=== PATIENT | female | born 1945 | race Caucasian/White ===

== ENCOUNTER 2017-07-17 15:07 | Inpatient (IN) | payer OTHER ==
[~2017-07-17] VITALS: Ht 154.9 cm; Wt 60.5 kg
[~2017-07-17 15:07] MED LIST: ACET-749 PO; ANSHCCR TOP; ASPI81TA82 PO; BISA-16 PR; DEXTSYP41 PO; FLNIN NAE; LEVO100T PO; METH1TAB2 PO; METR1GEL3 TOP; MOML PO; MULT-506 PO; [UNRECOGNIZED DRUG - CODE] TOP
--- NOTE | 2017-07-17 15:50 | EMERGENCY ROOM VISIT NOTE ---
History Report prepared by Tim: Sharri Cuevas Under the Supervision of: Dr. Gerhard Lema M.D. 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 The patient is a resident at [facility]. The history is obtained from [facility] staff member at the bedside. She states that the patient is prone to PNA. She was seen at her PCP's office yesterday for a cough and increased fatigue. She was started on Levaquin. Today the patient's symptoms were worse. She is paler and more fatigued today. Typically she is more verbal. Positive loss of appetite. The [facility] at [facility] referred the patient to the ED for further evaluation. She did have a flu shot this year. Pt takes a baby aspirin, Lamictal, and Keppra. The HPI is limited secondary to the patient's baseline mental status. 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 Review of Systems ROS is limited secondary to the patient's baseline mental status. Past Medical & Surgical Medical Problems: (1) Alvarado catheter in place (2) Gastroesophageal reflux disease (3) History of DVT (deep vein thrombosis) (4) Hypothyroidism (5) Intellectual disability (6) Osteoporosis (7) Pulmonary fibrosis (8) Seizure disorder Surgical Problems: (1) Total replacement of hip Family History Cardiac disorder FATHER Hypertension MOTHER Social History Smoking Status: Never Smoker Alcohol Use: none Drug Use: none Marital Status: single Housing Status: assisted living Occupation Status: disabled Current/Historical Medications Scheduled Aspirin (Aspirin 81), 81 MG PO DAILY Calcium Carbonate-Vitamin D (Oyster Shell/Vitamin D), 1 TABLET PO HS Calcium Polycarbophil (Fibercon), 625 MG PO DAILY Carbamazepine (Carbatrol ER), 300 MG PO BID Denosumab (Prolia), 60 MG INJ Q6MO Docusate Sodium (Docusate Sodium), 100 MG PO BID Fluticasone Propionate (Nasal) (Flonase Allergy Relief), 2 SPRAYS NA DAILY Hydrocortisone 2.5% (Rectal) (Anusol-Hc 2.5%), 1 APPLN TOP BID Lactulose (Chronulac), 15 ML PO BID Lamotrigine (Lamictal), 350 MG PO BID Levetiracetam (Keppra), 750 MG PO BID Levofloxacin (Levaquin), 500 MG PO DAILY Levothyroxine Sodium (Levothyroxine Sodium), 100 MCG PO DAILY Methenamine Hippurate (Methenamine Hippurate), 1 GM PO BID Metronidazole Hcl (Metronidazole), 1 APPLN TOP BID Multivitamin (Multivitamin), 1 TABLET PO DAILY Neomycin/Polymyx/Bacitr (Neosporin), 1 APPLN TOP PRN Nystatin (Topical) (Nystatin), 1 APPLN PO PRN Sennosides-Docusate Sodium (Sennalax-S), 1 TABLET PO BID Skin Protectants, Misc. (Aloe [place] Protective), 1 APPLN TOP BID Scheduled PRN Acetaminophen (Tylenol), 650 MG PO Q4H PRN for Pain or Fever Guaifenesin (Robitussin), 2 TSP PO Q4H PRN for Cough Loperamide Hcl (Imodium A-D), 2-4 MG PO UD PRN for Diarrhea Polyethylene Glycol 3350 (Miralax), 1 DOSE PO UD PRN for Constipation Allergies Coded Allergies: No Known Allergies (Verified , 12/18/12) Physical Exam Vital Signs Date Time Temp Pulse Resp B/P (MAP) Pulse Ox O2 Delivery O2 Flow Rate FiO2 07/17/17 22:44 80 22 142/79 93 Nasal Cannula 2.0 07/17/17 20:33 79 07/17/17 19:59 64 18 173/78 99 Nasal Cannula 2.0 07/17/17 17:47 60 20 154/70 99 Nasal Cannula 2.0 07/17/17 16:16 73 18 147/74 96 Room Air 07/17/17 15:44 95 Nasal Cannula 2.0 07/17/17 15:26 65 07/17/17 15:20 36.9 72 151/68 95 Room Air Physical Exam GENERAL: Awake, alert, well-appearing, NAD HENT: Normocephalic, atraumatic. EYES: Normal conjunctiva. Sclera non-icteric. NECK: Supple. No nuchal rigidity. FROM. RESPIRATORY: No rhonchi or wheezing, bibasilar crackles noted CARDIAC: RRR, no MRG ABDOMEN: Soft, NTND, BS+ : Alvarado catheter in place draining yellow urine. RECTAL: Liquid stool in the vault. MSK: No chest wall TTP, upper extremity contractures, no LE edema NEURO: GCS 11, CN 2-12 intact SKIN: No rash or jaundice noted. Medical Decision & Procedures ER Provider Diagnostic Interpretation: Radiology results as stated below per my review and radiologist interpretation: [facility] CLINICAL HISTORY: Chronic constipation. Fatigue. COMPARISON STUDY: [facility] December 18, 2012. FINDINGS: Right hip arthroplasty is incidentally noted. Oval-shaped calcific densities projecting over the pelvis are unchanged. A large amount stool within the rectum is noted consistent with fecal impaction. There is a jguu-nn-yamkoqyo amount of stool throughout the colon. Moderate to severe dilatation of a colonic loop within the left mid abdomen is noted. There is no small bowel dilatation. IMPRESSION: 1. Large amount of stool within the rectum. Mild to moderate amount stool within the colon. 2. Moderate to severe dilatation of a colonic loop within the left mid abdomen, a nonspecific finding which could reflect pseudoobstruction (Cammy syndrome), colonic obstruction or a volvulus. 3. No evidence for a small bowel obstruction. Electronically signed by: Jacobo Falk M.D. 07/17/2017 5:47 PM Dictated Date/Time: 07/17/2017 5:[address] OF THE HEAD WITHOUT CONTRAST CLINICAL HISTORY: Weakness. COMPARISON STUDY: Head CT November 11, 2014. CT DOSE: 1084.37 mGycm TECHNIQUE: Helical axial images of the head were obtained without IV contrast. Automated exposure control was utilized for the study. A dose lowering technique was utilized adhering to the principles of ALARA. FINDINGS: This exam is mildly compromised by motion artifact. No acute intracranial hemorrhage, midline shift or mass effect is present. 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 The appearance is similar to exam of November 11, 2014. The corpus callosum is absent. No septum pellucidum is visualized. A large lateral ventricle is unchanged. Cerebellar atrophy is unchanged. Prominent CSF spaces which communicate with the fourth ventricle is unchanged. There are no findings to suggest acute dural sinus thrombosis or acute territorial infarct. There are no significant calvarial abnormalities. Sphenoid sinus air-fluid levels are noted. IMPRESSION: 1. No acute intracranial findings. 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 2. Sphenoid sinus air-fluid levels. Electronically signed by: Jacobo Falk M.D. 07/17/2017 4:35 PM Dictated Date/Time: 07/17/2017 4:30 PM CHEST ONE VIEW PORTABLE CLINICAL HISTORY: EVALUATE WEAKNESS COMPARISON STUDY: Chest radiograph January 29, 2015. FINDINGS: Evaluation is suboptimal due to difficulty positioning. Elevation of the right hemidiaphragm is unchanged. There is no pneumothorax or definite pleural effusion. Asymmetric interstitial thickening within the right lung is noted. This is similar to prior exam. No superimposed consolidation is identified. Cardiomediastinal silhouette is stable. IMPRESSION: 1. No significant change in appearance of the chest with asymmetric interstitial thickening suggestive of interstitial lung disease, greater within the right lung. 2. No superimposed pneumonia identified. 3. Study mildly compromised due to difficulty positioning. Electronically signed by: Jacobo Falk M.D. 07/17/2017 5:30 PM Dictated Date/Time: 07/17/2017 5:[address] SCAN OF THE ABDOMEN AND PELVIS WITH IV CONTRAST CLINICAL HISTORY: Constipation. COMPARISON STUDY: Abdominal CT dated 07/23/2011. TECHNIQUE: Following the IV administration of 81 cc of Optiray 320, CT scan of the abdomen and pelvis is performed from the lung bases to the proximal femora. Images are reviewed in the axial, sagittal, and coronal planes. IV contrast was administered without complication. A dose lowering technique was utilized adhering to the principles of ALARA. The examination is degraded by motion artifact, as was by streak artifact from the arms which could not be elevated above the abdomen. CT DOSE: 465.68 mGy.cm FINDINGS: Lung bases: The heart is normal in size and there is trace pericardial effusion. The mitral annulus and coronary arteries are calcified. Fibrotic change is present at both lung bases. Superimposed consolidation is suspected in the right lower lobe. There is a trace right pleural effusion. Liver: The contrast-enhanced liver is normal in size, contour, and attenuation. There is no intrahepatic biliary ductal dilatation. The hepatic veins and portal veins are patent. Gallbladder: Unremarkable. Spleen: Normal in size and attenuation. Pancreas: Unremarkable. Adrenal glands: Unremarkable. Kidneys: The contrast enhanced kidneys demonstrate cortical atrophy and are without hydronephrosis. The kidneys enhance symmetrically. Abdominal vasculature: The abdominal aorta is normal in course and caliber noting moderate atherosclerotic calcification. Bowel: There is rectosigmoid fecal impaction. There is rectal wall thickening with perirectal inflammation, possibly ribs and external carotid colitis. The sigmoid colon is redundant and difficult to follow. There is a twisted loop of bowel in the pelvis seen on image #242. A sigmoid volvulus would be impossible to exclude. There is no small bowel obstruction. The appendix is well-visualized and normal. Peritoneum: There is no intraperitoneal free air or abdominal ascites. Lymphadenopathy: None. Pelvic viscera: Evaluation of the pelvis is degraded by streak artifact from a right hip arthroplasty. The bladder is decompressed around a Alvarado catheter and not well evaluated. Large calcific densities appear to be located within the bladder and may represent large bladder calculi. The uterus is normal as visualized. No adnexal lesion is seen. Skeletal structures: The skeletal structures are osteopenic. There are compression forms of T11, T12, and L2. Mild lumbosacral spondylosis is observed. No lytic or blastic lesions are seen. A right hip arthroplasty is in place. There are healed bilateral pubic ring fractures. IMPRESSION: 1. Significantly streak and motion compromised examination. 2. There is rectosigmoid fecal impaction. There is rectal wall thickening with associated perirectal inflammatory stranding suggesting stercoral proctocolitis. 3. The sigmoid colon is redundant and difficult to follow. There is focal twisting suggested involving a loop of bowel the pelvis. 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 Clinical correlation will be essential and surgical consultation is advised. 4. Suspect airspace consolidation at the right lung base with a small right pleural effusion. Correlate clinically for evidence of pneumonia. 5. There is no pneumatosis intestinalis, portal venous gas, or intraperitoneal free air. 6. No small bowel obstruction is seen. 7. Several densities are identified within the bladder. These were also seen on 07/23/2011. Large bladder calculi are not excluded. Clinical correlation will be required. 8. Additional findings as above. Electronically signed by: Sam Roman M.D. 07/17/2017 7:54 PM Dictated Date/Time: 07/17/2017 7:33 PM Laboratory Results 07/17/17 15:50 Red Blood Count 4.04, Mean Corpuscular Volume 90.6, Mean Corpuscular Hemoglobin 29.5, Mean Corpuscular Hemoglobin Concent 32.5, Mean Platelet Volume 10.1, Neutrophils (%) (Auto) 78.8, Lymphocytes (%) (Auto) 10.9, Monocytes (%) (Auto) 9.7, Eosinophils (%) (Auto) 0.1, Basophils (%) (Auto) 0.2, Neutrophils # (Auto) 9.06, Lymphocytes # (Auto) 1.26, Monocytes # (Auto) 1.12, Eosinophils # (Auto) 0.01, Basophils # (Auto) 0.02 07/17/17 15:50 Test 07/17/17 15:50 07/17/17 16:15 07/17/17 16:47 07/17/17 17:20 White Blood Count 11.51 K/uL (4.8-10.8) Red Blood Count 4.04 M/uL (4.2-5.4) Hemoglobin 11.9 g/dL (12.0-16.0) Hematocrit 36.6 % (37-47) Mean Corpuscular Volume 90.6 fL (80-100) Mean Corpuscular Hemoglobin 29.5 pg (25-34) Mean Corpuscular Hemoglobin Concent 32.5 g/dl (32-36) Platelet Count 238 K/uL (130-400) Mean Platelet Volume 10.1 fL (7.4-10.4) Neutrophils (%) (Auto) 78.8 % Lymphocytes (%) (Auto) 10.9 % Monocytes (%) (Auto) 9.7 % Eosinophils (%) (Auto) 0.1 % Basophils (%) (Auto) 0.2 % Neutrophils # (Auto) 9.06 K/uL (1.4-6.5) Lymphocytes # (Auto) 1.26 K/uL (1.2-3.4) Monocytes # (Auto) 1.12 K/uL (0.11-0.59) Eosinophils # (Auto) 0.01 K/uL (0-0.5) Basophils # (Auto) 0.02 K/uL (0-0.2) RDW Standard Deviation 44.6 fL (36.4-46.3) RDW Coefficient of Variation 13.5 % (11.5-14.5) Immature Granulocyte % (Auto) 0.3 % Immature Granulocyte # (Auto) 0.04 K/uL (0.00-0.02) Prothrombin Time 11.8 SECONDS (9.0-12.0) Prothromb Time International Ratio 1.1 (0.9-1.1) Activated Partial Thromboplast Time 24.3 SECONDS (21.0-31.0) Partial Thromboplastin Ratio 0.9 Anion Gap 5.0 mmol/L (3-11) Est Creatinine Clear Calc Drug Dose 74.2 ml/min Estimated GFR () 107.5 Estimated GFR (Non- 92.7 BUN/Creatinine Ratio 23.1 (10-20) Lactic Acid Level 1.1 mmol/L (0.4-2.0) Calcium Level 9.5 mg/dl (8.5-10.1) Magnesium Level 1.7 mg/dl (1.8-2.4) Total Bilirubin 0.6 mg/dl (0.2-1) Direct Bilirubin 0.2 mg/dl (0-0.2) Aspartate Amino Transf (AST/SGOT) 14 U/L (15-37) Alanine Aminotransferase (ALT/SGPT) 20 U/L (12-78) Alkaline Phosphatase 117 U/L (45-117) Troponin I < 0.015 ng/ml (0-0.045) Pro-B-Type Natriuretic Peptide 965 pg/ml (0-900) Total Protein 7.7 gm/dl (6.4-8.2) Albumin 3.0 gm/dl (3.4-5.0) Lipase 75 U/L (73-393) Thyroid Stimulating Hormone (TSH) 0.674 uIu/ml (0.300-4.500) Influenza Type A Antigen Neg for Influ A (NEG) Influenza Type B Antigen Neg for Influ B (NEG) Venous Blood pH 7.35 (7.36-7.41) Venous Blood Partial Pressure CO2 53 mmHg (38.0-50.0) Venous Blood Partial Pressure O2 25 mmHg Venous Blood HCO3 29 mmol/L Venous Blood Oxygen Saturation < 60.0 % Venous Blood Base Excess 2.1 mEq/L Urine Color DK YELLOW Urine Appearance TURBID (CLEAR) Urine pH 5.5 (4.5-7.5) Urine Specific [place] 1.036 (1.000-1.030) Urine Protein 3+ (NEG) Urine Glucose (UA) NEG (NEG) Urine Ketones 1+ (NEG) Urine Occult Blood 2+ (NEG) Urine Nitrite NEG (NEG) Urine Bilirubin NEG (NEG) Urine Urobilinogen NEG (NEG) Urine Leukocyte Esterase MODERATE (NEG) Urine WBC (Auto) >30 /hpf (0-5) Urine RBC (Auto) 5-10 /hpf (0-4) Urine Hyaline Casts (Auto) 0 /lpf (0-5) Urine Epithelial Cells (Auto) >30 /lpf (0-5) Urine Bacteria (Auto) 3+ (NEG) Urine Pathogenic Casts /lpf (0) Urine Yeast (Auto) (NONE PRSENT) Laboratory results reviewed by me. Medications Administered Medications (Trade) Dose Ordered Sig/Eric Route Start Time Stop Time Status Last Admin Dose Admin Ceftriaxone Sodium (Rocephin Inj) 1 gm NOW STAT IV 07/17/17 20:05 07/17/17 20:11 DC 07/17/17 20:41 1 GM ECG Indication: weakness Rate (beats per minute): 60 Rhythm: normal sinus Findings: other (normal intervals; normal axis; no STS changes or TWI) Change: Patient's electrocardiogram interpreted by me. ED Course 1511: The patient was evaluated in room A12B. A complete history and physical exam was performed. 2005: I performed a rectal exam at this time. Please see the PE for my findings. 2034: I spoke with Titi Kamara PA-C with surgery. He will come to the ED to evaluate the patient. 2037: Upon reevaluation the patient is resting comfortably. I discussed the case with staff member at the bedside and she verbalized agreement. 2115: I discussed the case with Titi Kamara PA-C with general surgery. He is recommending admission to the hospitalist service. 2135: I spoke with Dr. Wetzel. We discussed the patients case. The patient will be evaluated by the [facility] for further management. Medical Decision Differential diagnosis: Etiologies such as metabolic, infection, hypo/hyperglycemia, electrolyte abnormalities, cardiac sources, intracerebral event, toxicologic, neurologic, as well as others were entertained. 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 Patient was seen and evaluated the bedside. Patient was recently treated for a pneumonia with Levaquin. Per the caretakers at her longterm she has not been as the suppress her lounge and they were concerned. Patient's exam is somewhat limited as the patient is unable to give much information or even speak when she feels uncomfortable. Patient's vitals are fairly unremarkable. Patient is fairly soft belly bit did when some. Patient did have blood work, EKG, KUB, chest x-ray, VBG, and lactate. Patient's blood work fairly unremarkable. Patient white blood cell count of 11,000. Lactate normal. ABG fairly unremarkable. Patient kidney function normal. Patient's chest x-ray results of the clear. KUB concerning for possible dilated loop of bowel. Patient did have CT the abdomen pelvis. Patient negative flu. Patient's CT concerning for possible pseudoobstruction versus volvulus. I was concern for a rectal impaction. I did perform a rectal exam which only demonstrated liquid stool. There was nothing that was able to be removed that was hard stool. I did speak with the on-call surgery physician optical assistant who did come and evaluate the patient. The general surgeon also did evaluate the patient. Nothing surgical time. Patient was admitted to the medicine service for further evaluation and treatment. General surgery will continue to be on a consult and they did recommend GI consult for likely decompression. Medication Reconcilliation Current Medication List: was personally reviewed by me Blood Pressure Screening Patient's blood pressure: Elevated blood pressure Blood pressure disposition: Referred to PCP Consults Time Called: 2030 Consulting Physician: Titi Kamara PA-C Returned Call: 2034 I spoke with Titi Kamara PA-C with surgery. He will come to the ED to evaluate the patient. Additional Consults: Time Called: 2115 Consulted Physician: Titi Kamara PA-C Returned Call: 2115 Additional Comments: I discussed the case with Titi Kamara PA-C with general surgery. He is recommending admission to the hospitalist service. Time Called: 2131 Consulted Physician: Dr. Wetzel Returned Call: 2135 Additional Comments: I spoke with Dr. Wetzel. We discussed the patients case. The patient will be evaluated by the [facility]ist [facility] for further management. Impression Primary Impression: Pseudo-obstruction of intestine Additional Impressions: Athol's syndrome Anemia UTI (urinary tract infection) Scribe Attestation The scribe's documentation has been prepared under my direction and personally reviewed by me in its entirety. I confirm that the note above accurately reflects all work, treatment, procedures, and medical decision making performed by me. Departure Information Dispostion Being Evaluated By Hospitalist Referrals Lora Carvalho DO (PCP) Patient Instructions [facility] Problem Qualifiers Additional Impressions: Anemia Anemia type: unspecified type Qualified Codes: D64.9 - Anemia, unspecified UTI (urinary tract infection) Urinary tract infection type: acute cystitis Hematuria presence: with hematuria Qualified Codes: N30.01 - Acute cystitis with hematuria
[2017-07-17 16:15] LABS: BASO % 0.2 %; BASO ABS # 0.02 K/uL (0-0.2); EOS % 0.1 %; EOS ABS # 0.01 K/uL (0-0.5); HEMATOCRIT 36.6 % (37-47); HEMOGLOBIN 11.9 g/dL (12.0-16.0); IG# 0.04 K/uL (0.00-0.02); LYMPH % 10.9 %; LYMPH ABS # 1.26 K/uL (1.2-3.4); MEAN CELL VOLUME 90.6 fL (80-100); MEAN CORPUSCULAR HEMOGLOBIN 29.5 pg (25-34); MEAN CORPUSCULAR HGB CONC 32.5 g/dl (32-36); MEAN PLATELET VOLUME 10.1 fL (7.4-10.4); MONO % 9.7 %; MONO ABS # 1.12 K/uL (0.11-0.59); NEUT % 78.8 %; NEUT ABS # 9.06 K/uL (1.4-6.5); PLATELET COUNT 238 K/uL (130-400); RED CELL DISTRIBUTION WIDTH CV 13.5 % (11.5-14.5); RED CELL DISTRIBUTION WIDTH SD 44.6 fL (36.4-46.3); WHITE BLOOD COUNT 11.51 K/uL (4.8-10.8)
[2017-07-17 16:20] LABS: ALT/SGPT 20 U/L (12-78); AST/SGOT 14 U/L (15-37); BLOOD UREA NITROGEN 13 mg/dl (7-18); CALCIUM 9.5 mg/dl (8.5-10.1); CARBON DIOXIDE 28 mmol/L (21-32); CREATININE 0.58 mg/dl (0.60-1.20); GLUCOSE 102 mg/dl (70-99); INR 1.1 (0.9-1.1); LIPASE 75 U/L (73-393); POTASSIUM 3.7 mmol/L (3.5-5.1); PTT PATIENT 24.3 SECONDS (21.0-31.0); SODIUM 133 mmol/L (136-145)
[2017-07-17] MEDS ORDERED: ASPI-435 PO (16:30)
[2017-07-17] MEDS ORDERED: NEOMOIN3 TOP (16:30)
[2017-07-17] MEDS ORDERED: METH-1305 PO (16:30)
[2017-07-17] MEDS ORDERED: ROBITUSSIN DM PO (16:30)
[2017-07-17] MEDS ORDERED: DENO60SO INJ (16:30)
[2017-07-17] MEDS ORDERED: HYDR2.5C37 TOP (16:30)
[2017-07-17] MEDS ORDERED: FLNIN/ (16:30)
[2017-07-17] MEDS ORDERED: MTRCR45 TOP (16:30)
[2017-07-17] MEDS ORDERED: NYST100033 PO (16:30)
[2017-07-17] MEDS ORDERED: LEVO100T7 PO (16:30)
[2017-07-17] MEDS ORDERED: LEVO1TAB33 PO (16:30)
--- NOTE | 2017-07-17 16:37 | DIAGNOSTIC IMAGING REPORT ---
CT OF THE HEAD WITHOUT CONTRAST CLINICAL HISTORY: Weakness. COMPARISON STUDY: Head CT November 11, 2014. CT DOSE: 1084.37 mGycm TECHNIQUE: Helical axial images of the head were obtained without IV contrast. Automated exposure control was utilized for the study. A dose lowering technique was utilized adhering to the principles of ALARA. FINDINGS: This exam is mildly compromised by motion artifact. No acute intracranial hemorrhage, midline shift or mass effect is present. 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 The appearance is similar to exam of November 11, 2014. The corpus callosum is absent. No septum pellucidum is visualized. A large lateral ventricle is unchanged. Cerebellar atrophy is unchanged. Prominent CSF spaces which communicate with the fourth ventricle is unchanged. There are no findings to suggest acute dural sinus thrombosis or acute territorial infarct. There are no significant calvarial abnormalities. Sphenoid sinus air-fluid levels are noted. IMPRESSION: 1. No acute intracranial findings. 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 2. Sphenoid sinus air-fluid levels. Electronically signed by: Jacobo Falk M.D. 07/17/2017 4:35 PM Dictated Date/Time: 07/17/2017 4:30 PM
[2017-07-17 16:39] LABS: ALKALINE PHOSPHATASE 117 U/L (45-117); TOTAL PROTEIN 7.7 gm/dl (6.4-8.2)
[2017-07-17 17:00] LABS: INFLUENZA B ANTIGEN Neg for Influ B (NEG)
--- NOTE | 2017-07-17 17:31 | DIAGNOSTIC IMAGING REPORT ---
CHEST ONE VIEW PORTABLE CLINICAL HISTORY: EVALUATE WEAKNESS COMPARISON STUDY: Chest radiograph January 29, 2015. FINDINGS: Evaluation is suboptimal due to difficulty positioning. Elevation of the right hemidiaphragm is unchanged. There is no pneumothorax or definite pleural effusion. Asymmetric interstitial thickening within the right lung is noted. This is similar to prior exam. No superimposed consolidation is identified. Cardiomediastinal silhouette is stable. IMPRESSION: 1. No significant change in appearance of the chest with asymmetric interstitial thickening suggestive of interstitial lung disease, greater within the right lung. 2. No superimposed pneumonia identified. 3. Study mildly compromised due to difficulty positioning. Electronically signed by: Jacobo Falk M.D. 07/17/2017 5:30 PM Dictated Date/Time: 07/17/2017 5:27 PM
--- NOTE | 2017-07-17 17:48 | DIAGNOSTIC IMAGING REPORT ---
[facility] CLINICAL HISTORY: Chronic constipation. Fatigue. COMPARISON STUDY: [facility] December 18, 2012. FINDINGS: Right hip arthroplasty is incidentally noted. Oval-shaped calcific densities projecting over the pelvis are unchanged. A large amount stool within the rectum is noted consistent with fecal impaction. There is a [id number]-htbwqmoa amount of stool throughout the colon. Moderate to severe dilatation of a colonic loop within the left mid abdomen is noted. There is no small bowel dilatation. IMPRESSION: 1. Large amount of stool within the rectum. Mild to moderate amount stool within the colon. 2. Moderate to severe dilatation of a colonic loop within the left mid abdomen, a nonspecific finding which could reflect pseudoobstruction (Cammy syndrome), colonic obstruction or a volvulus. 3. No evidence for a small bowel obstruction. Electronically signed by: Jacobo Falk M.D. 07/17/2017 5:47 PM Dictated Date/Time: 07/17/2017 5:31 PM
[2017-07-17] MEDS ORDERED: OPTIRAY 320 IV PRN (18:45)
[2017-07-17] MEDS ORDERED: ACET-1311 PO (19:24)
--- NOTE | 2017-07-17 19:56 | DIAGNOSTIC IMAGING REPORT ---
CT SCAN OF THE ABDOMEN AND PELVIS WITH IV CONTRAST CLINICAL HISTORY: Constipation. COMPARISON STUDY: Abdominal CT dated 07/23/2011. TECHNIQUE: Following the IV administration of 81 cc of Optiray 320, CT scan of the abdomen and pelvis is performed from the lung bases to the proximal femora. Images are reviewed in the axial, sagittal, and coronal planes. IV contrast was administered without complication. A dose lowering technique was utilized adhering to the principles of ALARA. The examination is degraded by motion artifact, as was by streak artifact from the arms which could not be elevated above the abdomen. CT DOSE: 465.68 mGy.cm FINDINGS: Lung bases: The heart is normal in size and there is trace pericardial effusion. The mitral annulus and coronary arteries are calcified. Fibrotic change is present at both lung bases. Superimposed consolidation is suspected in the right lower lobe. There is a trace right pleural effusion. Liver: The contrast-enhanced liver is normal in size, contour, and attenuation. There is no intrahepatic biliary ductal dilatation. The hepatic veins and portal veins are patent. Gallbladder: Unremarkable. Spleen: Normal in size and attenuation. Pancreas: Unremarkable. Adrenal glands: Unremarkable. Kidneys: The contrast enhanced kidneys demonstrate cortical atrophy and are without hydronephrosis. The kidneys enhance symmetrically. Abdominal vasculature: The abdominal aorta is normal in course and caliber noting moderate atherosclerotic calcification. Bowel: There is rectosigmoid fecal impaction. There is rectal wall thickening with perirectal inflammation, possibly ribs and external carotid colitis. The sigmoid colon is redundant and difficult to follow. There is a twisted loop of bowel in the pelvis seen on image #[id number]. A sigmoid volvulus would be impossible to exclude. There is no small bowel obstruction. The appendix is well-visualized and normal. Peritoneum: There is no intraperitoneal free air or abdominal ascites. Lymphadenopathy: None. Pelvic viscera: Evaluation of the pelvis is degraded by streak artifact from a right hip arthroplasty. The bladder is decompressed around a Alvarado catheter and not well evaluated. Large calcific densities appear to be located within the bladder and may represent large bladder calculi. The uterus is normal as visualized. No adnexal lesion is seen. Skeletal structures: The skeletal structures are osteopenic. There are compression forms of T11, T12, and L2. Mild lumbosacral spondylosis is observed. No lytic or blastic lesions are seen. A right hip arthroplasty is in place. There are healed bilateral pubic ring fractures. IMPRESSION: 1. Significantly streak and motion compromised examination. 2. There is rectosigmoid fecal impaction. There is rectal wall thickening with associated perirectal inflammatory stranding suggesting stercoral proctocolitis. 3. The sigmoid colon is redundant and difficult to follow. There is focal twisting suggested involving a loop of bowel the pelvis. The line installer repairer radiograph is also concerning, and a sigmoid volvulus would be impossible to exclude. Clinical correlation will be essential and surgical consultation is advised. 4. Suspect airspace consolidation at the right lung base with a small right pleural effusion. Correlate clinically for evidence of pneumonia. 5. There is no pneumatosis intestinalis, portal venous gas, or intraperitoneal free air. 6. No small bowel obstruction is seen. 7. Several densities are identified within the bladder. These were also seen on 07/23/2011. Large bladder calculi are not excluded. Clinical correlation will be required. 8. Additional findings as above. Electronically signed by: Sam Roman M.D. 07/17/2017 7:54 PM Dictated Date/Time: 07/17/2017 7:33 PM
[2017-07-17] MEDS ORDERED: CEFTRIAXONE SOD INJ 1 GM ADDVIAL IV STA (20:05)
[2017-07-17] MEDS ORDERED: LACT10SO17 PO (20:43)
[2017-07-17] MEDS ORDERED: CALCTAB43 PO (20:47)
[2017-07-17] MEDS ORDERED: DOCU100C31 PO (20:47)
[2017-07-17] MEDS ORDERED: SENN1TAB86 PO (21:15)
[2017-07-17] MEDS ORDERED: KPP/750 PO (21:15)
[2017-07-17] MEDS ORDERED: POLY335019 PO (21:22)
[2017-07-17] MEDS ORDERED: LOPE-5 PO (21:29)
--- NOTE | 2017-07-17 21:41 | Surgery Progress Note ---
Surgery Progress Note Date of Service Jul 17, 2017. Subjective see Titi Luna's note adm through ER with nonspecific illness- findings of rectosigmoid fecal loading w/ dilated colon Objective Vital Signs: Date Time Temp Pulse Resp B/P (MAP) Pulse Ox O2 Delivery O2 Flow Rate FiO2 07/17/17 20:33 79 07/17/17 19:59 64 18 173/78 99 Nasal Cannula 2.0 07/17/17 17:47 60 20 154/70 99 Nasal Cannula 2.0 07/17/17 16:16 73 18 147/74 96 Room Air 07/17/17 15:44 95 Nasal Cannula 2.0 07/17/17 15:26 65 07/17/17 15:20 36.9 72 151/68 95 Room Air General Appearance: no apparent distress Abdomen: soft, + distended, + pertinent finding (no peritoneal signs) Laboratory Results: Results Past 24 Hours Test 07/17/17 15:50 07/17/17 16:15 07/17/17 16:47 07/17/17 17:20 Range/Units White Blood Count 11.51 4.8-10.8 K/uL Red Blood Count 4.04 4.2-5.4 M/uL Hemoglobin 11.9 12.0-16.0 g/dL Hematocrit 36.6 37-47 % Mean Corpuscular Volume 90.6 80-100 fL Mean Corpuscular Hemoglobin 29.5 25-34 pg Mean Corpuscular Hemoglobin Concent 32.5 32-36 g/dl Platelet Count 238 130-400 K/uL Mean Platelet Volume 10.1 7.4-10.4 fL Neutrophils (%) (Auto) 78.8 % Lymphocytes (%) (Auto) 10.9 % Monocytes (%) (Auto) 9.7 % Eosinophils (%) (Auto) 0.1 % Basophils (%) (Auto) 0.2 % Neutrophils # (Auto) 9.06 1.4-6.5 K/uL Lymphocytes # (Auto) 1.26 1.2-3.4 K/uL Monocytes # (Auto) 1.12 0.11-0.59 K/uL Eosinophils # (Auto) 0.01 0-0.5 K/uL Basophils # (Auto) 0.02 0-0.2 K/uL RDW Standard Deviation 44.6 36.4-46.3 fL RDW Coefficient of Variation 13.5 11.5-14.5 % Immature Granulocyte % (Auto) 0.3 % Immature Granulocyte # (Auto) 0.04 0.00-0.02 K/uL Prothrombin Time 11.8 9.0-12.0 SECONDS Prothromb Time International Ratio 1.1 0.9-1.1 Activated Partial Thromboplast Time 24.3 21.0-31.0 SECONDS Partial Thromboplastin Ratio 0.9 Sodium Level 133 136-145 mmol/L Potassium Level 3.7 3.5-5.1 mmol/L Chloride Level 100 98-107 mmol/L Carbon Dioxide Level 28 21-32 mmol/L Anion Gap 5.0 3-11 mmol/L Blood Urea Nitrogen 13 7-18 mg/dl Creatinine 0.58 0.60-1.20 mg/dl Est Creatinine Clear Calc Drug Dose 74.2 ml/min Estimated GFR () 107.5 Estimated GFR (Non- 92.7 BUN/Creatinine Ratio 23.1 10-20 Random Glucose 102 70-99 mg/dl Lactic Acid Level 1.1 0.4-2.0 mmol/L Calcium Level 9.5 8.5-10.1 mg/dl Magnesium Level 1.7 1.8-2.4 mg/dl Total Bilirubin 0.6 0.2-1 mg/dl Direct Bilirubin 0.2 0-0.2 mg/dl Aspartate Amino Transf (AST/SGOT) 14 15-37 U/L Alanine Aminotransferase (ALT/SGPT) 20 12-78 U/L Alkaline Phosphatase 117 45-117 U/L Troponin I < 0.015 0-0.045 ng/ml Pro-B-Type Natriuretic Peptide 965 0-900 pg/ml Total Protein 7.7 6.4-8.2 gm/dl Albumin 3.0 3.4-5.0 gm/dl Lipase 75 73-393 U/L Thyroid Stimulating Hormone (TSH) 0.674 0.300-4.500 uIu/ml Influenza Type A Antigen Neg for Influ A NEG Influenza Type B Antigen Neg for Influ B NEG Venous Blood pH 7.35 7.36-7.41 Venous Blood Partial Pressure CO2 53 38.0-50.0 mmHg Venous Blood Partial Pressure O2 25 mmHg Venous Blood HCO3 29 mmol/L Venous Blood Oxygen Saturation < 60.0 % Venous Blood Base Excess 2.1 mEq/L Urine Color DK YELLOW Urine Appearance TURBID CLEAR Urine pH 5.5 4.5-7.5 Urine Specific Schulter 1.036 1.000-1.030 Urine Protein 3+ NEG Urine Glucose (UA) NEG NEG Urine Ketones 1+ NEG Urine Occult Blood 2+ NEG Urine Nitrite NEG NEG Urine Bilirubin NEG NEG Urine Urobilinogen NEG NEG Urine Leukocyte Esterase MODERATE NEG Urine WBC (Auto) >30 0-5 /hpf Urine RBC (Auto) 5-10 0-4 /hpf Urine Hyaline Casts (Auto) 0 0-5 /lpf Urine Epithelial Cells (Auto) >30 0-5 /lpf Urine Bacteria (Auto) 3+ NEG Urine Pathogenic Casts 0 /lpf Urine Yeast (Auto) NONE PRSENT Microbiology Results 07/17/17 Urine Culture, Received Pending Assessment & Plan 07/17/17- unknown etiology of illness- ? urinary tract, respiratory has fecal impaction- likely a chronic problem not requiring urgent surgical intervention. Consider GI evaluation to help decompress, may benefit from gentle enema.
--- NOTE | 2017-07-17 21:42 | Surgery Consultation ---
Consultation Date of Consultation: Jul 17, 2017. Attending Physician: Reason for Consultation: Fecal impaction vs. sigmoid volvulus. History of Present Illness Patient is a 71F who presents to the ED this evening due to being sick for the past 3 days. She has had a cough, abdominal pain and increased fatigue. She has a history of cerebral palsy, seizure disorder, hyperlipidemia, hypothyroidism, DVT and intellectual disability. She is a poor historian due to her inability to communicate effectively. She is a resident at [facility] and is accompanied by one of the facilities staff members. History obtained from [facility] staff. She was seen by her PCP yesterday due to her symptoms and was started on Levaquin at this time. Today her abdominal pain is worse and she does not have an appetite. States she was given soup earlier today but refused to eat it. Reports she did have a small soft BM today as well. Denies blood in stool. Denies nausea/vomiting per staff. She has been putting out urine but they state it has been a little dark. They report a change in her affect as she is usually more talkative. WBC 11.51. Urinalysis in the ED reveals evidence of a possible UTI. Staff is unsure about her surgical history. She does currently take aspirin 81mg QD. Family History Cardiac disorder FATHER Hypertension MOTHER Social History Smoking Status: Never Smoker Drug Use: none Marital Status: single Housing Status: assisted living Occupation Status: disabled Allergies Coded Allergies: No Known Allergies (Verified , 12/18/12) Home Medications Scheduled Aspirin (Aspirin 81), 81 MG PO DAILY Calcium Carbonate-Vitamin D (Oyster Shell/Vitamin D), 1 TABLET PO HS Calcium Polycarbophil (Fibercon), 625 MG PO DAILY Carbamazepine (Carbatrol ER), 300 MG PO BID Denosumab (Prolia), 60 MG INJ Q6MO Docusate Sodium (Docusate Sodium), 100 MG PO BID Fluticasone Propionate (Fluticasone Propionate), 2 SPRAYS NA DAILY Hydrocortisone 2.5% (Rectal) (Anusol-Hc 2.5%), 1 APPLN TOP BID Lactulose (Chronulac), 15 ML PO BID Lamotrigine (Lamictal), 300 MG PO BID Lamotrigine (Lamictal), 50 MG PO BID Levetiracetam (Keppra), 750 MG PO BID Levofloxacin (Levaquin), 500 MG PO DAILY Levothyroxine Sodium (Levothyroxine Sodium), 100 MCG PO DAILY Methenamine Hippurate (Methenamine Hippurate), 1 GM PO 2XWK Metronidazole Hcl (Metronidazole), 1 APPLN TOP BID Multivitamin (Multivitamin), 1 TABLET PO DAILY Neomycin/Polymyx/Bacitr (Neosporin), 1 APPLN TOP PRN Nystatin (Topical) (Nystatin), 1 APPLN PO PRN Sennosides-Docusate Sodium (Sennalax-S), 1 TABLET PO BID Skin Protectants, Misc. (Aloe Chauvin Protective), 1 APPLN TOP BID Scheduled PRN Acetaminophen (Tylenol), 650 MG PO Q4H PRN for Pain or Fever Loperamide Hcl (Imodium A-D), 2-4 MG PO UD PRN for Diarrhea Polyethylene Glycol 3350 (Miralax), 1 DOSE PO UD PRN for Constipation [Robitussin Dm], 10 ML PO Q4 PRN for Cough Current Inpatient Medications Current Inpatient Medications Medications (Trade) Dose Ordered Sig/Eric Route Start Time Stop Time Status Last Admin Dose Admin Ioversol (Optiray 320) 100 ml UD PRN IV 07/17/17 18:45 07/21/17 18:44 Review of Systems Limited due to patients limited ability to communicate. ROS per Skills nursing staff. Constitutional: No fever, No chills Respiratory: + cough, No shortness of breath Abdomen: + pain (Generalized), + constipation, No nausea, No vomiting, No diarrhea Physical Exam Date Time Temp Pulse Resp B/P (MAP) Pulse Ox O2 Delivery O2 Flow Rate FiO2 07/17/17 20:33 79 07/17/17 19:59 64 18 173/78 99 Nasal Cannula 2.0 07/17/17 17:47 60 20 154/70 99 Nasal Cannula 2.0 07/17/17 16:16 73 18 147/74 96 Room Air 07/17/17 15:44 95 Nasal Cannula 2.0 07/17/17 15:26 65 07/17/17 15:20 36.9 72 151/68 95 Room Air General Appearance: WD/WN, + mild distress (appears lethargic and in some visible abdominal pain.) Head: normocephalic, atraumatic ENT: hearing grossly normal Respiratory/Chest: no respiratory distress, no accessory muscle use Abdomen/GI: no organomegaly, no pulsatile mass, + tenderness (generalized), + distended, + guarding Neurologic/Psych: alert, normal mood/affect, oriented x 3 Skin: + pertinent finding (mildly pale) Laboratory Results Last 24 Hours Test 07/17/17 15:50 07/17/17 16:15 07/17/17 16:47 07/17/17 17:20 White Blood Count 11.51 K/uL Red Blood Count 4.04 M/uL Hemoglobin 11.9 g/dL Hematocrit 36.6 % Mean Corpuscular Volume 90.6 fL Mean Corpuscular Hemoglobin 29.5 pg Mean Corpuscular Hemoglobin Concent 32.5 g/dl Platelet Count 238 K/uL Mean Platelet Volume 10.1 fL Neutrophils (%) (Auto) 78.8 % Lymphocytes (%) (Auto) 10.9 % Monocytes (%) (Auto) 9.7 % Eosinophils (%) (Auto) 0.1 % Basophils (%) (Auto) 0.2 % Neutrophils # (Auto) 9.06 K/uL Lymphocytes # (Auto) 1.26 K/uL Monocytes # (Auto) 1.12 K/uL Eosinophils # (Auto) 0.01 K/uL Basophils # (Auto) 0.02 K/uL RDW Standard Deviation 44.6 fL RDW Coefficient of Variation 13.5 % Immature Granulocyte % (Auto) 0.3 % Immature Granulocyte # (Auto) 0.04 K/uL Prothrombin Time 11.8 SECONDS Prothromb Time International Ratio 1.1 Activated Partial Thromboplast Time 24.3 SECONDS Partial Thromboplastin Ratio 0.9 Sodium Level 133 mmol/L Potassium Level 3.7 mmol/L Chloride Level 100 mmol/L Carbon Dioxide Level 28 mmol/L Anion Gap 5.0 mmol/L Blood Urea Nitrogen 13 mg/dl Creatinine 0.58 mg/dl Est Creatinine Clear Calc Drug Dose 74.2 ml/min Estimated GFR () 107.5 Estimated GFR (Non- 92.7 BUN/Creatinine Ratio 23.1 Random Glucose 102 mg/dl Lactic Acid Level 1.1 mmol/L Calcium Level 9.5 mg/dl Magnesium Level 1.7 mg/dl Total Bilirubin 0.6 mg/dl Direct Bilirubin 0.2 mg/dl Aspartate Amino Transf (AST/SGOT) 14 U/L Alanine Aminotransferase (ALT/SGPT) 20 U/L Alkaline Phosphatase 117 U/L Troponin I < 0.015 ng/ml Pro-B-Type Natriuretic Peptide 965 pg/ml Total Protein 7.7 gm/dl Albumin 3.0 gm/dl Lipase 75 U/L Thyroid Stimulating Hormone (TSH) 0.674 uIu/ml Influenza Type A Antigen Neg for Influ A Influenza Type B Antigen Neg for Influ B Venous Blood pH 7.35 Venous Blood Partial Pressure CO2 53 mmHg Venous Blood Partial Pressure O2 25 mmHg Venous Blood HCO3 29 mmol/L Venous Blood Oxygen Saturation < 60.0 % Venous Blood Base Excess 2.1 mEq/L Urine Color DK YELLOW Urine Appearance TURBID Urine pH 5.5 Urine Specific Lefor 1.036 Urine Protein 3+ Urine Glucose (UA) NEG Urine Ketones 1+ Urine Occult Blood 2+ Urine Nitrite NEG Urine Bilirubin NEG Urine Urobilinogen NEG Urine Leukocyte Esterase MODERATE Urine WBC (Auto) >30 /hpf Urine RBC (Auto) 5-10 /hpf Urine Hyaline Casts (Auto) 0 /lpf Urine Epithelial Cells (Auto) >30 /lpf Urine Bacteria (Auto) 3+ Urine Pathogenic Casts /lpf Urine Yeast (Auto) Assessment & Plan Abdominal pain, CT with evidence of rectosigmoid fecal impaction and focal twisting of a pelvic loop of bowel suggesting possible sigmoid volvulus. Still in some pain, mild-moderate distention, No N/V at this time. Mild Leukocytosis. Patient has a probable UTI, lingering URI symptoms, fecal impaction in the rectosigmoid colon - cannot rule out sigmoid volvulus. Admit per medical team - medical management as necessary. Will consult GI for evaluation and possible colonoscopic decompression. NPO, IV fluids, IV pain medication PRN, IV Zofran PRN for nausea, SCDs. Findings discussed with Dr. Snow and he was in to see and examine patient as well. Please contact with questions or concerns.
[2017-07-17] MEDS ORDERED: [UNRECOGNIZED DRUG - CODE] PO (21:43)
[2017-07-17] MEDS ORDERED: CALC625T PO (21:43)
[2017-07-17] MEDS ORDERED: LMC/150 PO (21:43)
[2017-07-17] MEDS ORDERED: LAMO100T PO (21:43)
[2017-07-17] MEDS ORDERED: ONDANSETRON INJ 2 MG/ML 2 ML VIAL IV PRN (22:15)
[2017-07-17] MEDS ORDERED: ACETAMINOPHEN 325 MG TAB PO PRN (22:15)
[2017-07-17] MEDS ORDERED: RBTUDL5 PO (22:31)
[2017-07-17] MEDS ORDERED: FLUT0.15 (22:31)
[2017-07-17] MEDS ORDERED: MoRPHine SULFATE 4 MG/ML 1 ML CARP\\VIAL IV PRN (22:45)
[2017-07-17] MEDS ORDERED: AZITHROMYCIN IV 500 MG in DEXTROSE 5% 250ML 250 ML IV STA (22:56)
--- NOTE | 2017-07-17 23:03 | History and Physical ---
History & Physical Date & Time of Service: Jul 17, 2017 ~ 21:45 Chief Complaint: Illness Primary Care Physician: Lora Carvalho DO History of Present Illness 71 year old female who presents to the ED from [facility] for evaluation of lethargy and cough. Patient has severe mental retardation and cannot provide any history. History is obtained from caregiver who is at the bedside. Patient has had a moist non productive cough and rhinorrhea for the past 4 days. She was seen by her PCP yesterday who placed her on Levaquin for a suspected pneumonia. Patient has had increasing lethargy so she was brought to the ED for further evaluation. Patient has chronic issues with constipation. Last bowel movement was this morning however it was a small amount. No vomiting or diarrhea. Her temperature was not checked. She has a chronic rodriguez catheter in place. In the ED, patient underwent CT abd/pelvis that is showing rectosigmoid fecal impaction and possible sigmoid volvulus. Right basilar lung consolidation was also noted. U/A suggests UTI. Patient was given IV Rocephin. Labs are unremarkable and vitals are stable. 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 Status: Chronic Family History Hypertension MOTHER Social History Smoking Status: Never Smoker Alcohol Use: none Occupational Status: disabled Immunizations History of Influenza Vaccine: Yes Influenza Vaccine Date: Mar 25, 2017 History of Tetanus Vaccine?: Yes Tetanus Immunization Date: Aug 17, 2013 History of Pneumococcal: Yes Pneumococcal Date: Jun 27, 2015 Multi-Drug Resistant Organisms History of MDRO: No Allergies Coded Allergies: No Known Allergies (Verified , 12/18/12) Home Medications Scheduled Aspirin (Aspirin 81), 81 MG PO DAILY Calcium Carbonate-Vitamin D (Oyster Shell/Vitamin D), 1 TABLET PO HS Calcium Polycarbophil (Fibercon), 625 MG PO DAILY Carbamazepine (Carbatrol ER), 300 MG PO BID Denosumab (Prolia), 60 MG INJ Q6MO Docusate Sodium (Docusate Sodium), 100 MG PO BID Fluticasone Propionate (Nasal) (Flonase Allergy Relief), 2 SPRAYS NA DAILY Hydrocortisone 2.5% (Rectal) (Anusol-Hc 2.5%), 1 APPLN TOP BID Lactulose (Chronulac), 15 ML PO BID Lamotrigine (Lamictal), 350 MG PO BID Levetiracetam (Keppra), 750 MG PO BID Levofloxacin (Levaquin), 500 MG PO DAILY Levothyroxine Sodium (Levothyroxine Sodium), 100 MCG PO DAILY Methenamine Hippurate (Methenamine Hippurate), 1 GM PO BID Metronidazole Hcl (Metronidazole), 1 APPLN TOP BID Multivitamin (Multivitamin), 1 TABLET PO DAILY Neomycin/Polymyx/Bacitr (Neosporin), 1 APPLN TOP PRN Nystatin (Topical) (Nystatin), 1 APPLN PO PRN Sennosides-Docusate Sodium (Sennalax-S), 1 TABLET PO BID Skin Protectants, Misc. (Aloe [place] Protective), 1 APPLN TOP BID Scheduled PRN Acetaminophen (Tylenol), 650 MG PO Q4H PRN for Pain or Fever Guaifenesin (Robitussin), 2 TSP PO Q4H PRN for Cough Loperamide Hcl (Imodium A-D), 2-4 MG PO UD PRN for Diarrhea Polyethylene Glycol 3350 (Miralax), 1 DOSE PO UD PRN for Constipation Review of Systems unobtainable from patient due to mental status Physical Exam Vital Signs Date Time Temp Pulse Resp B/P (MAP) Pulse Ox O2 Delivery O2 Flow Rate FiO2 07/17/17 22:44 80 22 142/79 93 Nasal Cannula 2.0 07/17/17 20:33 79 07/17/17 19:59 64 18 173/78 99 Nasal Cannula 2.0 07/17/17 17:47 60 20 154/70 99 Nasal Cannula 2.0 07/17/17 16:16 73 18 147/74 96 Room Air 07/17/17 15:44 95 Nasal Cannula 2.0 07/17/17 15:26 65 07/17/17 15:20 36.9 72 151/68 95 Room Air General Appearance: WD/WN, no apparent distress Head: normocephalic, atraumatic Eyes: normal inspection, EOMI, sclerae normal ENT: hearing grossly normal, + pertinent finding (mucous membranes moist) Neck: supple, no JVD, trachea midline Respiratory/Chest: no respiratory distress, + crackles (right mid-base lung martin) Cardiovascular: regular rate, rhythm, normal peripheral pulses, + pertinent finding (trace edema BLLE) Abdomen/GI: soft, + tenderness (generalized), + abnormal bowel sounds ( hypoactive), + distended Genitourinary - Female: + pertinent finding (rodriguez in place draining clear yellow urine) Extremities/Musculoskelatal: no calf tenderness, normal capillary refill, + pertinent finding (LUE contracted) Neurologic/Psych: + pertinent finding (severe mental retardation, speech incoherent) Skin: normal color, warm/dry Diagnostics Laboratory Results Results Past 24 Hours Test 07/17/17 15:50 07/17/17 16:15 07/17/17 16:47 07/17/17 17:20 Range/Units White Blood Count 11.51 4.8-10.8 K/uL Red Blood Count 4.04 4.2-5.4 M/uL Hemoglobin 11.9 12.0-16.0 g/dL Hematocrit 36.6 37-47 % Mean Corpuscular Volume 90.6 80-100 fL Mean Corpuscular Hemoglobin 29.5 25-34 pg Mean Corpuscular Hemoglobin Concent 32.5 32-36 g/dl Platelet Count 238 130-400 K/uL Mean Platelet Volume 10.1 7.4-10.4 fL Neutrophils (%) (Auto) 78.8 % Lymphocytes (%) (Auto) 10.9 % Monocytes (%) (Auto) 9.7 % Eosinophils (%) (Auto) 0.1 % Basophils (%) (Auto) 0.2 % Neutrophils # (Auto) 9.06 1.4-6.5 K/uL Lymphocytes # (Auto) 1.26 1.2-3.4 K/uL Monocytes # (Auto) 1.12 0.11-0.59 K/uL Eosinophils # (Auto) 0.01 0-0.5 K/uL Basophils # (Auto) 0.02 0-0.2 K/uL RDW Standard Deviation 44.6 36.4-46.3 fL RDW Coefficient of Variation 13.5 11.5-14.5 % Immature Granulocyte % (Auto) 0.3 % Immature Granulocyte # (Auto) 0.04 0.00-0.02 K/uL Prothrombin Time 11.8 9.0-12.0 SECONDS Prothromb Time International Ratio 1.1 0.9-1.1 Activated Partial Thromboplast Time 24.3 21.0-31.0 SECONDS Partial Thromboplastin Ratio 0.9 Sodium Level 133 136-145 mmol/L Potassium Level 3.7 3.5-5.1 mmol/L Chloride Level 100 98-107 mmol/L Carbon Dioxide Level 28 21-32 mmol/L Anion Gap 5.0 3-11 mmol/L Blood Urea Nitrogen 13 7-18 mg/dl Creatinine 0.58 0.60-1.20 mg/dl Est Creatinine Clear Calc Drug Dose 74.2 ml/min Estimated GFR () 107.5 Estimated GFR (Non- 92.7 BUN/Creatinine Ratio 23.1 10-20 Random Glucose 102 70-99 mg/dl Lactic Acid Level 1.1 0.4-2.0 mmol/L Calcium Level 9.5 8.5-10.1 mg/dl Magnesium Level 1.7 1.8-2.4 mg/dl Total Bilirubin 0.6 0.2-1 mg/dl Direct Bilirubin 0.2 0-0.2 mg/dl Aspartate Amino Transf (AST/SGOT) 14 15-37 U/L Alanine Aminotransferase (ALT/SGPT) 20 12-78 U/L Alkaline Phosphatase 117 45-117 U/L Troponin I < 0.015 0-0.045 ng/ml Pro-B-Type Natriuretic Peptide 965 0-900 pg/ml Total Protein 7.7 6.4-8.2 gm/dl Albumin 3.0 3.4-5.0 gm/dl Lipase 75 73-393 U/L Thyroid Stimulating Hormone (TSH) 0.674 0.300-4.500 uIu/ml Influenza Type A Antigen Neg for Influ A NEG Influenza Type B Antigen Neg for Influ B NEG Venous Blood pH 7.35 7.36-7.41 Venous Blood Partial Pressure CO2 53 38.0-50.0 mmHg Venous Blood Partial Pressure O2 25 mmHg Venous Blood HCO3 29 mmol/L Venous Blood Oxygen Saturation < 60.0 % Venous Blood Base Excess 2.1 mEq/L Urine Color DK YELLOW Urine Appearance TURBID CLEAR Urine pH 5.5 4.5-7.5 Urine Specific [place] 1.036 1.000-1.030 Urine Protein 3+ NEG Urine Glucose (UA) NEG NEG Urine Ketones 1+ NEG Urine Occult Blood 2+ NEG Urine Nitrite NEG NEG Urine Bilirubin NEG NEG Urine Urobilinogen NEG NEG Urine Leukocyte Esterase MODERATE NEG Urine WBC (Auto) >30 0-5 /hpf Urine RBC (Auto) 5-10 0-4 /hpf Urine Hyaline Casts (Auto) 0 0-5 /lpf Urine Epithelial Cells (Auto) >30 0-5 /lpf Urine Bacteria (Auto) 3+ NEG Urine Pathogenic Casts 0 /lpf Urine Yeast (Auto) NONE PRSENT Microbiology Results 07/17/17 Urine Culture, Received Pending Diagnostic Radiology KUB XR IMPRESSION: 1. Large amount of stool within the rectum. Mild to moderate amount stool within the colon. 2. Moderate to severe dilatation of a colonic loop within the left mid abdomen, a nonspecific finding which could reflect pseudoobstruction (Cammy syndrome), colonic obstruction or a volvulus. 3. No evidence for a small bowel obstruction. HEAD CT IMPRESSION: 1. No acute intracranial findings. 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 2. Sphenoid sinus air-fluid levels. CXR IMPRESSION: 1. No significant change in appearance of the chest with asymmetric interstitial thickening suggestive of interstitial lung disease, greater within the right lung. 2. No superimposed pneumonia identified. 3. Study mildly compromised due to difficulty positioning. CT ABD/PELVIS IMPRESSION: 1. Significantly streak and motion compromised examination. 2. There is rectosigmoid fecal impaction. There is rectal wall thickening with associated perirectal inflammatory stranding suggesting stercoral proctocolitis. 3. The sigmoid colon is redundant and difficult to follow. There is focal twisting suggested involving a loop of bowel the pelvis. The engineering drawings checker radiograph is also concerning, and a sigmoid volvulus would be impossible to exclude. Clinical correlation will be essential and surgical consultation is advised. 4. Suspect airspace consolidation at the right lung base with a small right pleural effusion. Correlate clinically for evidence of pneumonia. 5. There is no pneumatosis intestinalis, portal venous gas, or intraperitoneal free air. 6. No small bowel obstruction is seen. 7. Several densities are identified within the bladder. These were also seen on 07/23/2011. Large bladder calculi are not excluded. Clinical correlation will be required. 8. Additional findings as above. Impression Assessment and Plan RECTOSIGMOID FECAL IMPACTION / POSSIBLE SIGMOID VOLVULUS - admit to med/surg - patient with history of chronic constipation, on several bowel regimen medications - CT in the ED showing rectosigmoid fecal impaction and possible sigmoid volvulus - evaluated by surgery (Dr. Snow) in the ED - NPO, IVF, pain and nausea and control - GI consulted for possible colonic decompression PNEUMONIA, CAP VS. ASPIRATION - right basilar consolidation noted on CT abd/pelvis - s/p Rocephin in the ED, will continue with and add on azithromycin - no signs of sepsis - speech therapy evaluation POSSIBLE UTI - has chronic rodriguez - U/A suggests UTI, culture pending - on Rocephin as above HX SEIZURES - continue Lamictal, carbamazepine, and Keppra HYPOTHYROIDISM - continue Levothyroxine SEVERE MENTAL RETARDATION DVT PROPHYLAXIS - SCDs in the event patient needs an invasive procedure DISPO - In my clinical judgment this beneficiary meets acute admission criteria, established by [facility], that includes being hospitalized through two midnights. Attending Addendum: The patient was seen and examined Has Significant H/O Mental Retardation,Chronic Lung disease and Almost bedbound with Chronic Rodriguez in situ Was brought in to ER with Progressive worsening of Lethargy Has been on Levaquin for the last 2 days for RLL pneumonia O/E Not in any distress at rest Hemodynamically stable Chest-decreased breath sound bilaterally with bibasilar crackles Right >Left Heart-irregular Abdomen-mildly distended,soft ,mildly tender Extremities-1 + bilateral leg edema Labs and Imaging studies were reviewed Has Sigmoid Volvulus ,Pneumonia and UTI Surgery and GI evaluation Agree with the assessment and plan. Dr Jossie Wetzel VTE Prophylaxis VTE Risk Assessment Done? Y/N: Yes Risk Level: Moderate
[2017-07-17 23:41] VITALS: BP 155/74; PULSE 78; TEMP 37; O2SAT 97; BMI 25.2
[2017-07-17] MEDS: D5W AND NSS 1,000 ML IV SCH (23:55)
[2017-07-17] MEDS: MAGNESIUM SULFATE 1GM / D5W 1 GM in PREMIXED IN D5W 100 ML IV SCH (23:55)
[2017-07-18] MEDS ORDERED: IV FLUIDS COMPLETED PRN (00:15)
[2017-07-18] MEDS ORDERED: PNEUMOCOCCAL POLYSACCHARIDES 25 MCG/0.5 ML VIAL/SYR IM. ONE (00:30)
[2017-07-18] MEDS ORDERED: PNEUMOCOCCAL ADMINISTRATION CHARGE ONE (00:30)
[2017-07-18] MEDS ORDERED: NURSING VERBAL MED ORDER ONE (00:45)
[2017-07-18] MEDS: MAGNESIUM SULFATE 1GM / D5W 1 GM in PREMIXED IN D5W 100 ML IV SCH (01:02)
--- NOTE | 2017-07-18 05:57 | Surgery Progress Note ---
Surgery Progress Note Date of Service Jul 18, 2017. Subjective seems to be comfortable- minimal abd pain Objective Vital Signs: Date Time Temp Pulse Resp B/P (MAP) Pulse Ox O2 Delivery O2 Flow Rate FiO2 07/18/17 00:00 Room Air 07/17/17 23:41 37.0 78 24 155/74 97 Nasal Cannula 2.0 07/17/17 22:44 80 22 142/79 93 Nasal Cannula 2.0 07/17/17 20:33 79 07/17/17 19:59 64 18 173/78 99 Nasal Cannula 2.0 07/17/17 17:47 60 20 154/70 99 Nasal Cannula 2.0 07/17/17 16:16 73 18 147/74 96 Room Air 07/17/17 15:44 95 Nasal Cannula 2.0 07/17/17 15:26 65 07/17/17 15:20 36.9 72 151/68 95 Room Air General Appearance: no apparent distress Respiratory/Chest: no respiratory distress Abdomen: soft, + distended (mild distention) Laboratory Results: Results Past 24 Hours Test 07/17/17 15:50 07/17/17 16:15 07/17/17 16:47 07/17/17 17:20 Range/Units White Blood Count 11.51 4.8-10.8 K/uL Red Blood Count 4.04 4.2-5.4 M/uL Hemoglobin 11.9 12.0-16.0 g/dL Hematocrit 36.6 37-47 % Mean Corpuscular Volume 90.6 80-100 fL Mean Corpuscular Hemoglobin 29.5 25-34 pg Mean Corpuscular Hemoglobin Concent 32.5 32-36 g/dl Platelet Count 238 130-400 K/uL Mean Platelet Volume 10.1 7.4-10.4 fL Neutrophils (%) (Auto) 78.8 % Lymphocytes (%) (Auto) 10.9 % Monocytes (%) (Auto) 9.7 % Eosinophils (%) (Auto) 0.1 % Basophils (%) (Auto) 0.2 % Neutrophils # (Auto) 9.06 1.4-6.5 K/uL Lymphocytes # (Auto) 1.26 1.2-3.4 K/uL Monocytes # (Auto) 1.12 0.11-0.59 K/uL Eosinophils # (Auto) 0.01 0-0.5 K/uL Basophils # (Auto) 0.02 0-0.2 K/uL RDW Standard Deviation 44.6 36.4-46.3 fL RDW Coefficient of Variation 13.5 11.5-14.5 % Immature Granulocyte % (Auto) 0.3 % Immature Granulocyte # (Auto) 0.04 0.00-0.02 K/uL Prothrombin Time 11.8 9.0-12.0 SECONDS Prothromb Time International Ratio 1.1 0.9-1.1 Activated Partial Thromboplast Time 24.3 21.0-31.0 SECONDS Partial Thromboplastin Ratio 0.9 Sodium Level 133 136-145 mmol/L Potassium Level 3.7 3.5-5.1 mmol/L Chloride Level 100 98-107 mmol/L Carbon Dioxide Level 28 21-32 mmol/L Anion Gap 5.0 3-11 mmol/L Blood Urea Nitrogen 13 7-18 mg/dl Creatinine 0.58 0.60-1.20 mg/dl Est Creatinine Clear Calc Drug Dose 74.2 ml/min Estimated GFR () 107.5 Estimated GFR (Non- 92.7 BUN/Creatinine Ratio 23.1 10-20 Random Glucose 102 70-99 mg/dl Lactic Acid Level 1.1 0.4-2.0 mmol/L Calcium Level 9.5 8.5-10.1 mg/dl Magnesium Level 1.7 1.8-2.4 mg/dl Total Bilirubin 0.6 0.2-1 mg/dl Direct Bilirubin 0.2 0-0.2 mg/dl Aspartate Amino Transf (AST/SGOT) 14 15-37 U/L Alanine Aminotransferase (ALT/SGPT) 20 12-78 U/L Alkaline Phosphatase 117 45-117 U/L Troponin I < 0.015 0-0.045 ng/ml Pro-B-Type Natriuretic Peptide 965 0-900 pg/ml Total Protein 7.7 6.4-8.2 gm/dl Albumin 3.0 3.4-5.0 gm/dl Lipase 75 73-393 U/L Thyroid Stimulating Hormone (TSH) 0.674 0.300-4.500 uIu/ml Influenza Type A Antigen Neg for Influ A NEG Influenza Type B Antigen Neg for Influ B NEG Venous Blood pH 7.35 7.36-7.41 Venous Blood Partial Pressure CO2 53 38.0-50.0 mmHg Venous Blood Partial Pressure O2 25 mmHg Venous Blood HCO3 29 mmol/L Venous Blood Oxygen Saturation < 60.0 % Venous Blood Base Excess 2.1 mEq/L Urine Color DK YELLOW Urine Appearance TURBID CLEAR Urine pH 5.5 4.5-7.5 Urine Specific [place] 1.036 1.000-1.030 Urine Protein 3+ NEG Urine Glucose (UA) NEG NEG Urine Ketones 1+ NEG Urine Occult Blood 2+ NEG Urine Nitrite NEG NEG Urine Bilirubin NEG NEG Urine Urobilinogen NEG NEG Urine Leukocyte Esterase MODERATE NEG Urine WBC (Auto) >30 0-5 /hpf Urine RBC (Auto) 5-10 0-4 /hpf Urine Hyaline Casts (Auto) 0 0-5 /lpf Urine Epithelial Cells (Auto) >30 0-5 /lpf Urine Bacteria (Auto) 3+ NEG Urine Pathogenic Casts 0 /lpf Urine Yeast (Auto) NONE PRSENT Test 07/18/17 04:44 Range/Units Microbiology Results 07/17/17 Urine Culture, Received Pending Assessment & Plan 07/18/17- h/o chronic constipation- now with stool burden in rectosigmoid- try fleets this am, then more aggressive if needed. GI to see later. If any surgery needed to correct chronic problem- would be diverting colostomy. 07/17/17- unknown etiology of illness- ? urinary tract, respiratory has fecal impaction- likely a chronic problem not requiring urgent surgical intervention. Consider GI evaluation to help decompress, may benefit from gentle enema. 07/17/17- unknown etiology of illness- ? urinary tract, respiratory has fecal impaction- likely a chronic problem not requiring urgent surgical intervention. Consider GI evaluation to help decompress, may benefit from gentle enema.
[2017-07-18] MEDS: LEVOTHYROXINE 100 MCG TAB PO SCH ×2 (05:59→06:00)
[2017-07-18 06:51] LABS: HEMATOCRIT 34.6 % (37-47); HEMOGLOBIN 11.5 g/dL (12.0-16.0); MEAN CELL VOLUME 89.4 fL (80-100); MEAN CORPUSCULAR HEMOGLOBIN 29.7 pg (25-34); MEAN CORPUSCULAR HGB CONC 33.2 g/dl (32-36); MEAN PLATELET VOLUME 10.3 fL (7.4-10.4); PLATELET COUNT 235 K/uL (130-400); RED CELL DISTRIBUTION WIDTH CV 13.4 % (11.5-14.5); RED CELL DISTRIBUTION WIDTH SD 43.7 fL (36.4-46.3)
--- NOTE | 2017-07-18 07:17 | Clinical Documentation Query ---
CLINICAL DOCUMENTATION QUERY 71-y/o female with sigmoid volvulus. H&P is documenting CAP Vs. Aspiration. A management instructor cannot assume "aspiration" to mean aspiration pneumonia if that was the intent. Query #1/2 In your clinical opinion is this patient being managed for: ( x ) CAP Vs. possible Aspiration pneumonia treated with Azithromycin and Ceftriaxone. ( ) Not Agree ( ) Other explanation of clinical findings (Please Explain) ( ) Unable to determine (Please Define) ( ) Need to Discuss The medical record reflects the following clinical findings, treatment, and risk factors. Clinical Indicators: As above. Abdominal CT showed right basilar consolidation Treatment: IV Azithromycin, IV Ceftriaxone, Speech therapy consult, Risk Factors: Age, cough, sigmoid volvulus Query #2/2 This patient has a chronic indwelling Alvarado catheter and is documented as having suspected UTI. In your clinical opinion is this patient being managed for: ( x ) Alvarado catheter associated UTI ( ) Not Agree ( ) Other explanation of clinical findings (Please Explain) ( ) Unable to determine (Please Define) ( ) Need to Discuss The medical record reflects the following clinical findings, treatment, and risk factors. Clinical Indicators: Alvarado Catheter, UA with 3+bacteria and moderate leukocyte esterase. Treatment: UC, UA, IV Azithromycin, IV Ceftriaxone Risk Factors: Age, Alvarado, Please clarify and document your clinical opinion in the progress notes and discharge summary. Terms such as "probable", "suspected", "likely", "questionable", "possible", or "still to be ruled out" are acceptable. IF IN AGREEMENT, YOU MUST DOCUMENT ABOVE DIAGNOSTIC STATEMENT IN DAILY PROGRESS NOTES AND DISCHARGE SUMMARY. This document is not part of the patient's record. Thank You, Deep Chan, RN [phone]
[2017-07-18 07:32] LABS: CALCIUM 9.1 mg/dl (8.5-10.1); CREATININE 0.41 mg/dl (0.60-1.20); POTASSIUM 2.9 mmol/L (3.5-5.1)
[2017-07-18] MEDS ORDERED: SOD PHOSPHATE/SOD BIPHOSPHATE ENEMA 132 ML BTL PR SCH (08:00)
[2017-07-18 08:14] VITALS: BP 147/76; PULSE 91; TEMP 38.9; O2SAT 91
[2017-07-18 08:36] VITALS: TEMP 38.7
[2017-07-18] MEDS ORDERED: ACETAMINOPHEN 650 MG SUPP PR ONE (09:00)
[2017-07-18 09:27] VITALS: Ht 154.9 cm; Wt 60.5 kg
[2017-07-18 12:20] VITALS: TEMP 37.6
--- NOTE | 2017-07-18 12:20 | Gastrointestinal Consultation ---
Gastrointestinal Consultation Date of Consultation: Jul 18, 2017 Attending Physician: Edy Consulting Physician: Luc Reason for Consultation: fecal impaction History of Present Illness Patient is a 71 year old female w/ history of MR who presented from care home for evaluation of lethargy and cough. Pt was seen and evaluated, chart reviewed. GI was asked to see the pt for evaluation of fecal impaction. Pt was evaluated by general surgery this AM for ?volvulous and was stared on fleets enema. Per nursing staff, numerous large BMs. Pt is non-verbal, but is not resistant to exam. ROS not obtained. CT ABD/Pelvis 07/17/27: Significantly streak and motion compromised examination. There is rectosigmoid fecal impaction. There is rectal wall thickening with associated perirectal inflammatory stranding suggesting stercoral proctocolitis. The sigmoid colon is redundant and difficult to follow. There is focal twisting suggested involving a loop of bowel the pelvis. The temple marker radiograph is also concerning, and a sigmoid volvulus would be impossible to exclude. Clinical correlation will be essential and surgical consultation is advised. Suspect airspace consolidation at the right lung base with a small right pleural effusion. Correlate clinically for evidence of pneumonia. There is no pneumatosis intestinalis, portal venous gas, or intraperitoneal free air. No small bowel obstruction is seen. Several densities are identified within the bladder. These were also seen on 07/23/2011. Large bladder calculi are not excluded. Clinical correlation will be required. Past Medical/Surgical History Past Medical History: GERD, constipation, MR, DVT, hypothyroidism, osteoporosis, seizure disorder, pulmonary fibrosis Past Surgical History: right hip repair Family History Hypertension MOTHER Social History Smoking Status: Never Smoker Alcohol Use: none Housing Status: assisted living Occupation Status: disabled Allergies Coded Allergies: No Known Allergies (Verified , 12/18/12) Current Medications Home Meds and Scripts Medications Dose Route/Sig Max Daily Dose Days Date Category Dose Instructions Robitussin (Guaifenesin) 100 Mg/5 Ml Kesha 2 Tsp PO Q4H PRN 07/17/17 Reported Flonase Allergy Relief (Fluticasone Propionate (Nasal)) 50 Mcg/Act Spr 2 Sprays NA DAILY 07/17/17 Reported Neosporin (Neomycin/Polymyxin/Bacitracin) Oint 1 Appln TOP PRN 07/17/17 Reported Prolia (Denosumab) 60 Mg/Ml Kesha 60 Mg INJ Q6MO 07/17/17 Reported Nystatin (Nystatin (Topical)) 100,000 Unit/Gm Pow 1 Appln PO PRN 07/17/17 Reported Anusol-Hc 2.5% (Hydrocortisone 2.5% (Rectal)) 2.5 % Cre 1 Appln TOP BID 7 07/17/17 Reported Levothyroxine Sodium 100 Mcg Tab 100 Mcg PO DAILY 07/17/17 Reported Levaquin (Levofloxacin) 500 Mg Tab 500 Mg PO DAILY 7 07/17/17 Reported Methenamine Hippurate 1 Gm Tab 1 Gm PO BID 07/17/17 Reported Aspirin 81 (Aspirin) 81 Mg Tab 81 Mg PO DAILY 07/17/17 Reported Metronidazole (Metronidazole Hcl) 135 Appln/45 Gm Cr 1 Appln TOP BID 07/17/17 Reported APPLY TO AFFECTED AREAS ON FACE. [place] Protective (Skin Protectants, Misc.) 43 % Oin 1 Appln TOP BID 11/11/14 Reported Imodium A-D (Loperamide Hcl) 2 Mg Tab 2-4 Mg PO UD PRN 11/29/12 Reported TAKE TWO TABLETS (4 MG) AFTER FIRST LOOSE STOOL THEN ONE TABLET (2 MG) AFTER EACH ADDITIONAL LOOSE STOOL. Miralax (Polyethylene Glycol 3350) 1 Pow Pow 1 Dose PO UD PRN 11/29/12 Reported MIX ONE CAPFUL IN 8 OUNCES OF WATER OR JUICE. IF NO BOWEL MOVEMENT IN 12 HOURS AFTER GIVING DUCOLAX SUPPOSITORY INCREASE MIRALAX TO 2 CAPFULS IN 16 OUNCES OF WATER OR JUICE. Sennalax-S (Sennosides-Docusate Sodium) 1 Tab Tab 1 Tablet PO BID 11/29/12 Reported Keppra (Levetiracetam) 750 Mg Tab 750 Mg PO BID 11/29/12 Reported Oyster Shell/Vitamin D (Calcium Carbonate-Vitamin D) 1 Tab Tab 1 Tablet PO HS 11/29/12 Reported Docusate Sodium 100 Mg Cap 100 Mg PO BID 11/29/12 Reported Fibercon (Calcium Polycarbophil) 625 Mg Tab 625 Mg PO DAILY 06/29/12 Reported Lamictal (Lamotrigine) 100 Mg Tab 350 Mg PO BID 06/29/12 Reported Carbatrol ER (Carbamazepine) 300 Mg Capcr 300 Mg PO BID 06/29/12 Reported Tylenol (Acetaminophen) 325 Mg Tab 650 Mg PO Q4H PRN 09/09/11 Reported Multivitamin (Multivitamins) Tab 1 Tablet PO DAILY 02/27/11 Reported Chronulac (Lactulose) 10 Gm/15 Ml Syrp 15 Ml PO BID 09/24/10 Reported Physical Exam Date Time Temp Pulse Resp B/P (MAP) Pulse Ox O2 Delivery O2 Flow Rate FiO2 07/18/17 08:36 38.7 07/18/17 08:14 38.9 91 17 147/76 (99) 91 Room Air 07/18/17 00:00 Room Air 07/17/17 23:41 37.0 78 24 155/74 97 Nasal Cannula 2.0 07/17/17 22:44 80 22 142/79 93 Nasal Cannula 2.0 07/17/17 20:33 79 07/17/17 19:59 64 18 173/78 99 Nasal Cannula 2.0 07/17/17 17:47 60 20 154/70 99 Nasal Cannula 2.0 07/17/17 16:16 73 18 147/74 96 Room Air 07/17/17 15:44 95 Nasal Cannula 2.0 07/17/17 15:26 65 07/17/17 15:20 36.9 72 151/68 95 Room Air General Appearance: no apparent distress Eyes: PERRL Neck: supple Respiratory/Chest: normal breath sounds Cardiovascular: regular rate, rhythm, no gallop Abdomen: soft, no organomegaly, + abnormal bowel sounds (hypoactive) Neurologic/Psych: alert Skin: normal color, no jaundice Laboratory Results Last 24 Hours Test 07/17/17 15:50 07/17/17 16:15 07/17/17 16:47 07/17/17 17:20 White Blood Count 11.51 K/uL Red Blood Count 4.04 M/uL Hemoglobin 11.9 g/dL Hematocrit 36.6 % Mean Corpuscular Volume 90.6 fL Mean Corpuscular Hemoglobin 29.5 pg Mean Corpuscular Hemoglobin Concent 32.5 g/dl Platelet Count 238 K/uL Mean Platelet Volume 10.1 fL Neutrophils (%) (Auto) 78.8 % Lymphocytes (%) (Auto) 10.9 % Monocytes (%) (Auto) 9.7 % Eosinophils (%) (Auto) 0.1 % Basophils (%) (Auto) 0.2 % Neutrophils # (Auto) 9.06 K/uL Lymphocytes # (Auto) 1.26 K/uL Monocytes # (Auto) 1.12 K/uL Eosinophils # (Auto) 0.01 K/uL Basophils # (Auto) 0.02 K/uL RDW Standard Deviation 44.6 fL RDW Coefficient of Variation 13.5 % Immature Granulocyte % (Auto) 0.3 % Immature Granulocyte # (Auto) 0.04 K/uL Prothrombin Time 11.8 SECONDS Prothromb Time International Ratio 1.1 Activated Partial Thromboplast Time 24.3 SECONDS Partial Thromboplastin Ratio 0.9 Sodium Level 133 mmol/L Potassium Level 3.7 mmol/L Chloride Level 100 mmol/L Carbon Dioxide Level 28 mmol/L Anion Gap 5.0 mmol/L Blood Urea Nitrogen 13 mg/dl Creatinine 0.58 mg/dl Est Creatinine Clear Calc Drug Dose 74.2 ml/min Estimated GFR () 107.5 Estimated GFR (Non- 92.7 BUN/Creatinine Ratio 23.1 Random Glucose 102 mg/dl Lactic Acid Level 1.1 mmol/L Calcium Level 9.5 mg/dl Magnesium Level 1.7 mg/dl Total Bilirubin 0.6 mg/dl Direct Bilirubin 0.2 mg/dl Aspartate Amino Transf (AST/SGOT) 14 U/L Alanine Aminotransferase (ALT/SGPT) 20 U/L Alkaline Phosphatase 117 U/L Troponin I < 0.015 ng/ml Pro-B-Type Natriuretic Peptide 965 pg/ml Total Protein 7.7 gm/dl Albumin 3.0 gm/dl Lipase 75 U/L Thyroid Stimulating Hormone (TSH) 0.674 uIu/ml Influenza Type A Antigen Neg for Influ A Influenza Type B Antigen Neg for Influ B Venous Blood pH 7.35 Venous Blood Partial Pressure CO2 53 mmHg Venous Blood Partial Pressure O2 25 mmHg Venous Blood HCO3 29 mmol/L Venous Blood Oxygen Saturation < 60.0 % Venous Blood Base Excess 2.1 mEq/L Urine Color DK YELLOW Urine Appearance TURBID Urine pH 5.5 Urine Specific [place] 1.036 Urine Protein 3+ Urine Glucose (UA) NEG Urine Ketones 1+ Urine Occult Blood 2+ Urine Nitrite NEG Urine Bilirubin NEG Urine Urobilinogen NEG Urine Leukocyte Esterase MODERATE Urine WBC (Auto) >30 /hpf Urine RBC (Auto) 5-10 /hpf Urine Hyaline Casts (Auto) 0 /lpf Urine Epithelial Cells (Auto) >30 /lpf Urine Bacteria (Auto) 3+ Urine Pathogenic Casts /lpf Urine Yeast (Auto) Test 07/18/17 06:08 White Blood Count 9.20 K/uL Red Blood Count 3.87 M/uL Hemoglobin 11.5 g/dL Hematocrit 34.6 % Mean Corpuscular Volume 89.4 fL Mean Corpuscular Hemoglobin 29.7 pg Mean Corpuscular Hemoglobin Concent 33.2 g/dl RDW Standard Deviation 43.7 fL RDW Coefficient of Variation 13.4 % Platelet Count 235 K/uL Mean Platelet Volume 10.3 fL Sodium Level 134 mmol/L Potassium Level 2.9 mmol/L Chloride Level 101 mmol/L Carbon Dioxide Level 25 mmol/L Anion Gap 8.0 mmol/L Blood Urea Nitrogen 10 mg/dl Creatinine 0.41 mg/dl Est Creatinine Clear Calc Drug Dose 105.0 ml/min Estimated GFR () 120.5 Estimated GFR (Non- 103.9 BUN/Creatinine Ratio 23.7 Random Glucose 121 mg/dl Calcium Level 9.1 mg/dl Magnesium Level 2.3 mg/dl Impression Patient is a 71 year old female w/ fecal impaction ?volvulus. She has had a good response w/ fleets enema w/ numerous large BMs (brown) Abdominal exam is benign, there is no guarding. She is hypertensive, tachycardiac without a WBC Plan - No role for colonic decompression - Continue w/ fleets enemas as needed - NPO - IVF for hydration - Offer pain control, but minimize narcotics - Antiemetics PRN - KUB in morning - GI will follow. Please call with any question or concerns. I saw and evaluated the patient. We are consult at for evaluation of suspected fecal impaction. It appears that there is significant improvement overnight with use of Fleet Enema Physical examination Contractures noted Abdomen without tenderness or distention Impression: Patient with a history of intellectual disability presenting with fecal impaction. Would recommend continued efforts at disimpaction this patient with fleets enemas every 6 hours for 1 more day. After this please start MiraLAX 17 g twice daily for 2 weeks then 1 time daily indefinitely thereafter. Given the patient's intellectual disability I'm not certain she is a good candidate for colonoscopy to screen for colorectal cancer. Recommendations Fleets enema every 6 hours today MiraLAX twice daily starting tomorrow Avoid use of narcotics if possible Consider daily KUB Please call with any questions or concerns Dr. Maykel Calle
[2017-07-18] MEDS: D5W AND NSS 1,000 ML IV SCH ×2 (12:33→21:41)
[2017-07-18] MEDS: METHENAMINE HIPPURATE 1 GM TAB PO SCH ×3 (12:35→21:44)
[2017-07-18] MEDS: LEVETIRACETAM 250 MG TAB PO SCH ×3 (12:35→21:44)
[2017-07-18] MEDS: MULTIVITAMIN TAB PO SCH (12:36)
[2017-07-18] MEDS: ASPIRIN 81 MG ECTAB PO SCH (12:36)
[2017-07-18 15:28] VITALS: BP 155/66; PULSE 66; TEMP 36.7; O2SAT 93
--- NOTE | 2017-07-18 18:42 | Progress Note ---
Medicine Progress Note Date & Time of Visit: Jul 18, 2017 at 18:30. Subjective Patient was sleeping and difficult to awaken on exam. No overnight events noted. Has been having bowel movements with the fleets enema. No other complaints noted. Remains NPO. Objective Last 8 Hrs Date Time Temp Pulse Resp B/P (MAP) Pulse Ox O2 Delivery O2 Flow Rate FiO2 07/18/17 15:28 36.7 66 18 155/66 (95) 93 Room Air 07/18/17 12:20 37.6 Physical Exam: GENERAL: Patient is in no acute distress. Appears younger than stated age HEENT: No acute trauma, normocephalic atraumatic, mucous membranes moist, no nasal congestion, no scleral icterus, conjunctivae clear. NECK: No stridor, trachea is midline. LUNGS: Clear to auscultation bilaterally, no wheeze, no rhonchi, breath sounds equal. HEART: Without murmurs gallops or rubs, regular rate and rhythm. ABDOMEN: Soft, nontender, bowel sounds positive, no hepatosplenomegaly EXTREMITIES: No cyanosis or edema NEUROLOGIC: Lethargic/sleeping SKIN: No rash, no jaundice, no diaphoresis. Laboratory Results: Last 24 Hours Test 07/18/17 06:08 White Blood Count 9.20 K/uL Red Blood Count 3.87 M/uL Hemoglobin 11.5 g/dL Hematocrit 34.6 % Mean Corpuscular Volume 89.4 fL Mean Corpuscular Hemoglobin 29.7 pg Mean Corpuscular Hemoglobin Concent 33.2 g/dl RDW Standard Deviation 43.7 fL RDW Coefficient of Variation 13.4 % Platelet Count 235 K/uL Mean Platelet Volume 10.3 fL Sodium Level 134 mmol/L Potassium Level 2.9 mmol/L Chloride Level 101 mmol/L Carbon Dioxide Level 25 mmol/L Anion Gap 8.0 mmol/L Blood Urea Nitrogen 10 mg/dl Creatinine 0.41 mg/dl Est Creatinine Clear Calc Drug Dose 105.0 ml/min Estimated GFR () 120.5 Estimated GFR (Non- 103.9 BUN/Creatinine Ratio 23.7 Random Glucose 121 mg/dl Calcium Level 9.1 mg/dl Magnesium Level 2.3 mg/dl Assessment & Plan RECTOSIGMOID FECAL IMPACTION/POSSIBLE SIGMOID VOLVULUS: -known history of chronic constipation, on several bowel regimen medications -CT in the ED showing rectosigmoid fecal impaction and possible sigmoid volvulus -Surgery consulted, appreciate recs, patient was started on q6 enemas -NPO, IV fluids, PRN pain control and antiemetics -GI consulted, recommend continuing the fleets enema and a bowel regimen in addition to above PNEUMONIA, CAP VS. ASPIRATION: -right basilar consolidation noted on CT abd/pelvis -on ceftriaxone + azithromycin -no signs of sepsis -speech therapy evaluation when able to take PO POSSIBLE UTI -has chronic rodriguez -U/A suggests UTI, culture reincubated for pinpoint growth -Rocephin day#2 HX SEIZURES -continue Lamictal, carbamazepine, and Keppra HYPOTHYROIDISM -continue Levothyroxine SEVERE MENTAL RETARDATION: -at baseline is awake and alert and able to take PO Current Inpatient Medications: Current Inpatient Medications Medications (Trade) Dose Ordered Sig/Eric Route Start Time Stop Time Status Last Admin Dose Admin Ioversol (Optiray 320) 100 ml UD PRN IV 07/17/17 18:45 07/21/17 18:44 Acetaminophen (Tylenol Tab) 650 mg Q4H PRN PO 07/17/17 22:15 08/16/17 22:14 Ondansetron HCl (Zofran Inj) 4 mg Q6H PRN IV 07/17/17 22:15 08/16/17 22:14 Dextrose/Sodium Chloride 1,000 ml @ 100 mls/hr Q10H IV 07/17/17 23:59 08/16/17 23:58 07/18/17 12:33 100 MLS/HR Ceftriaxone Sodium 1 gm/ Dextrose 50 ml @ 100 mls/hr Q24H IV 07/18/17 21:00 07/23/17 21:29 Azithromycin 250 mg/Dextrose 252.5 ml @ 125 mls/hr DAILY@0000 IV 07/19/17 00:00 07/22/17 02:02 Aspirin (Ecotrin Tab) 81 mg DAILY PO 07/18/17 09:00 08/17/17 08:59 07/18/17 12:36 81 MG Lamotrigine (Lamictal Tab) 350 mg BID PO 07/18/17 09:00 08/17/17 08:59 07/18/17 12:37 350 MG Levetiracetam (Keppra Tab) 750 mg BID PO 07/18/17 09:00 08/17/17 08:59 07/18/17 12:35 750 MG Levothyroxine Sodium (Synthroid Tab) 100 mcg DAILYBB PO 07/18/17 06:00 08/17/17 05:59 Methenamine Hippurate (Urex Tab) 1 gm BID PO 07/18/17 09:00 07/23/17 08:59 07/18/17 12:35 1 GM Multivitamins (Multivitamin Tab) 1 tab DAILY PO 07/18/17 09:00 08/17/17 08:59 07/18/17 12:36 1 TAB Miscellaneous Information (Order Awaiting Action) 1 ea QS N/A 07/18/17 08:00 08/17/17 07:59 Morphine Sulfate (MoRPHine SULFATE INJ) 3 mg Q4H PRN IV 07/17/17 22:45 07/31/17 22:44 Sodium Biphosphate/ Sodium Phosphate (Fleet Enema) [address] 07/18/17 21:00 07/19/17 13:00
[2017-07-18] MEDS: SOD PHOSPHATE/SOD BIPHOSPHATE ENEMA 132 ML BTL PR SCH (21:41)
[2017-07-18] MEDS: CEFTRIAXONE SOD INJ 1 GM in DEXTROSE 5% ADD-VANTAGE 50ML 50 ML IV SCH (21:42)
[2017-07-19 00:20] VITALS: BP 199/88; PULSE 82; TEMP 37; O2SAT 96
[2017-07-19] MEDS: AZITHROMYCIN IV 250 MG in DEXTROSE 5% 250ML 250 ML IV SCH (00:34)
[2017-07-19] MEDS: D5W AND NSS 1,000 ML IV SCH ×2 (05:56→21:11)
[2017-07-19] MEDS: LEVOTHYROXINE 100 MCG TAB PO SCH (05:56)
--- NOTE | 2017-07-19 06:33 | Surgery Progress Note ---
Surgery Progress Note Date of Service Jul 19, 2017. Subjective afeb, vss significant bowel movements since adm Objective Vital Signs: Date Time Temp Pulse Resp B/P (MAP) Pulse Ox O2 Delivery O2 Flow Rate FiO2 07/19/17 00:20 37.0 82 18 199/88 (125) 96 Room Air 07/18/17 23:30 Room Air 07/18/17 16:35 Room Air 07/18/17 15:28 36.7 66 18 155/66 (95) 93 Room Air 07/18/17 12:20 37.6 07/18/17 08:36 38.7 07/18/17 08:14 38.9 91 17 147/76 (99) 91 Room Air 07/18/17 08:00 Room Air General Appearance: no apparent distress Respiratory/Chest: no respiratory distress Abdomen: soft Laboratory Results: Results Past 24 Hours Test 07/19/17 06:17 Range/Units Assessment & Plan 07/19/17- abd much softer, no distention- enemas ordered no indication for surgery at this point. will cont to follow Dr Shaw covering over weekend 07/18/17- h/o chronic constipation- now with stool burden in rectosigmoid- try fleets this am, then more aggressive if needed. GI to see later. If any surgery needed to correct chronic problem- would be diverting colostomy. 07/17/17- unknown etiology of illness- ? urinary tract, respiratory has fecal impaction- likely a chronic problem not requiring urgent surgical intervention. Consider GI evaluation to help decompress, may benefit from gentle enema. 07/18/17- h/o chronic constipation- now with stool burden in rectosigmoid- try fleets this am, then more aggressive if needed. GI to see later. If any surgery needed to correct chronic problem- would be diverting colostomy. 07/17/17- unknown etiology of illness- ? urinary tract, respiratory has fecal impaction- likely a chronic problem not requiring urgent surgical intervention. Consider GI evaluation to help decompress, may benefit from gentle enema.
[2017-07-19 06:48] LABS: HEMATOCRIT 34.6 % (37-47); HEMOGLOBIN 11.6 g/dL (12.0-16.0); MEAN CELL VOLUME 88.9 fL (80-100); MEAN CORPUSCULAR HEMOGLOBIN 29.8 pg (25-34); MEAN CORPUSCULAR HGB CONC 33.5 g/dl (32-36); MEAN PLATELET VOLUME 10.6 fL (7.4-10.4); PLATELET COUNT 241 K/uL (130-400); RED CELL DISTRIBUTION WIDTH CV 13.2 % (11.5-14.5); WHITE BLOOD COUNT 6.69 K/uL (4.8-10.8)
[2017-07-19 07:27] LABS: CALCIUM 8.1 mg/dl (8.5-10.1); CREATININE 0.38 mg/dl (0.60-1.20)
[2017-07-19 07:50] VITALS: BP 141/83; PULSE 78; TEMP 37.1
[2017-07-19 08:14] LABS: POTASSIUM 2.4 mmol/L (3.5-5.1)
--- NOTE | 2017-07-19 08:28 | DIAGNOSTIC IMAGING REPORT ---
KUB CLINICAL HISTORY: Constipation. Fecal impaction. FINDINGS: 2 AP supine abdominal radiographs are correlated with abdominal CT dated 07/17/2017. There is moderate to severe colonic fecal retention. This has modestly improved from 07/17/2017. There is persistent gaseous distention of the small bowel loops and colon without clear evidence of high-grade obstruction. Large calcific densities in the pelvis are unchanged and may represent large bladder stones. No evidence of intraperitoneal free air is seen on these supine images. Right basilar consolidation is suggested. A right hip or other plasty is again noted. IMPRESSION: 1. Moderate to severe constipation. Fecal load has modestly improved from 07/17/2017. 2. There is persistent gaseous distention of the small bowel and colon without clear radiographic evidence of obstruction. 3. Suspect large bladder calculi. 4. Right basilar consolidation. Electronically signed by: Sam Roman M.D. 07/19/2017 8:27 AM Dictated Date/Time: 07/19/2017 8:25 AM
--- NOTE | 2017-07-19 08:57 | Gastroenterology Progress Note ---
Progress Note Date of Service: Jul 19, 2017 Subjective Pt evaluation today including: physical exam, chart review, lab review Pt seen and evaluated, chart reviewed. Offers no complaints. Moving copious amounts of stool. No black or bloody stools KUB 07/19/17: Moderate to severe constipation. Fecal load has modestly improved from 07/17/2017. There is persistent gaseous distention of the small bowel and colon without clear radiographic evidence of obstruction. Suspect large bladder calculi. Right basilar consolidation. CT ABD/Pelvis 07/17/27: Significantly streak and motion compromised examination. There is rectosigmoid fecal impaction. There is rectal wall thickening with associated perirectal inflammatory stranding suggesting stercoral proctocolitis. The sigmoid colon is redundant and difficult to follow. There is focal twisting suggested involving a loop of bowel the pelvis. The health information provider radiograph is also concerning, and a sigmoid volvulus would be impossible to exclude. Clinical correlation will be essential and surgical consultation is advised. Suspect airspace consolidation at the right lung base with a small right pleural effusion. Correlate clinically for evidence of pneumonia. There is no pneumatosis intestinalis, portal venous gas, or intraperitoneal free air. No small bowel obstruction is seen. Several densities are identified within the bladder. These were also seen on 07/23/2011. Large bladder calculi are not excluded. Clinical correlation will be required. Medications Current Inpatient Medications Medications (Trade) Dose Ordered Sig/Eric Route Start Time Stop Time Status Last Admin Dose Admin Ioversol (Optiray 320) 100 ml UD PRN IV 07/17/17 18:45 07/21/17 18:44 Acetaminophen (Tylenol Tab) 650 mg Q4H PRN PO 07/17/17 22:15 08/16/17 22:14 Ondansetron HCl (Zofran Inj) 4 mg Q6H PRN IV 07/17/17 22:15 08/16/17 22:14 Dextrose/Sodium Chloride 1,000 ml @ 100 mls/hr Q10H IV 07/17/17 23:59 08/16/17 23:58 07/19/17 05:56 100 MLS/HR Ceftriaxone Sodium 1 gm/ Dextrose 50 ml @ 100 mls/hr Q24H IV 07/18/17 21:00 07/23/17 21:29 07/18/17 21:42 100 MLS/HR Azithromycin 250 mg/Dextrose 252.5 ml @ 125 mls/hr DAILY@0000 IV 07/19/17 00:00 07/22/17 02:02 07/19/17 00:34 125 MLS/HR Aspirin (Ecotrin Tab) 81 mg DAILY PO 07/18/17 09:00 08/17/17 08:59 07/18/17 12:36 81 MG Lamotrigine (Lamictal Tab) 350 mg BID PO 07/18/17 09:00 08/17/17 08:59 07/18/17 12:37 350 MG Levetiracetam (Keppra Tab) 750 mg BID PO 07/18/17 09:00 08/17/17 08:59 07/18/17 12:35 750 MG Levothyroxine Sodium (Synthroid Tab) 100 mcg DAILYBB PO 07/18/17 06:00 08/17/17 05:59 Methenamine Hippurate (Urex Tab) 1 gm BID PO 07/18/17 09:00 07/23/17 08:59 07/18/17 12:35 1 GM Multivitamins (Multivitamin Tab) 1 tab DAILY PO 07/18/17 09:00 08/17/17 08:59 07/18/17 12:36 1 TAB Morphine Sulfate (MoRPHine SULFATE INJ) 3 mg Q4H PRN IV 07/17/17 22:45 07/31/17 22:44 Sodium Biphosphate/ Sodium Phosphate (Fleet Enema) 132 ml BID [place] 07/18/17 21:00 07/19/17 13:00 07/18/17 21:41 132 ML Carbamazepine (Carbatrol Extended-Release) 300 mg BID PO 07/19/17 09:00 08/18/17 08:59 Potassium Chloride 10 meq/ Prmx 100 ml @ 100 mls/hr Q1H IV 07/19/17 09:00 07/19/17 12:59 Magnesium Sulfate 1 gm/Prmx 100 ml @ 100 mls/hr 0900 ONCE IV 07/19/17 09:00 07/19/17 09:59 Objective Vital Signs Date Time Temp Pulse Resp B/P (MAP) Pulse Ox O2 Delivery O2 Flow Rate FiO2 07/19/17 07:50 37.1 78 18 141/83 (102) 07/19/17 00:20 37.0 82 18 199/88 (125) 96 Room Air 07/18/17 23:30 Room Air 07/18/17 16:35 Room Air 07/18/17 15:28 36.7 66 18 155/66 (95) 93 Room Air 07/18/17 12:20 37.6 Physical Exam General Appearance: no apparent distress Eyes: PERRL ENT: hearing grossly normal Neck: supple Respiratory/Chest: lungs clear Cardiovascular: regular rate, rhythm, no JVD Abdomen: normal bowel sounds, soft, no organomegaly, no pulsatile mass Neurologic/Psych: alert, normal mood/affect, oriented x 3 Skin: normal color Laboratory Results Last 24 Hours Test 07/19/17 06:17 07/19/17 07:42 White Blood Count 6.69 K/uL Red Blood Count 3.89 M/uL Hemoglobin 11.6 g/dL Hematocrit 34.6 % Mean Corpuscular Volume 88.9 fL Mean Corpuscular Hemoglobin 29.8 pg Mean Corpuscular Hemoglobin Concent 33.5 g/dl RDW Standard Deviation 43.0 fL RDW Coefficient of Variation 13.2 % Platelet Count 241 K/uL Mean Platelet Volume 10.6 fL Sodium Level 136 mmol/L Potassium Level mmol/L 2.4 mmol/L Chloride Level 103 mmol/L Carbon Dioxide Level 27 mmol/L Anion Gap 6.0 mmol/L Blood Urea Nitrogen 5 mg/dl Creatinine 0.38 mg/dl Est Creatinine Clear Calc Drug Dose 113.3 ml/min Estimated GFR () 123.5 Estimated GFR (Non- 106.6 BUN/Creatinine Ratio 11.7 Random Glucose 131 mg/dl Calcium Level 8.1 mg/dl Magnesium Level mg/dl 1.7 mg/dl Assessment and Plan 71 year old female with a history of intellectual disability presenting with fecal impaction. Would recommend continued efforts at disimpaction this patient with fleets enemas every 6 hours for 1 more day. After this please start MiraLAX 17 g twice daily for 2 weeks then 1 time daily indefinitely thereafter. Given the patient's intellectual disability I'm not certain she is a good candidate for colonoscopy to screen for colorectal cancer. - Daily KUB - Fleets enemas q6h x 24 more hours - Add miralax 17 g BID PO - Avoid narcotics - No plan for endoscopic evaluation - GI to sign off. Please call with any questions or concerns I saw and evaluated the patient with Ms. Carter. She seems to be having bowel movements per nursing reports. Recs: Miralax 17 gm bid Avoid narcotics continue fleets as above would consider use of LInzess 145 mcg as OP.
[2017-07-19] MEDS ORDERED: SOD PHOSPHATE/SOD BIPHOSPHATE ENEMA 132 ML BTL PR SCH (09:00)
[2017-07-19] MEDS ORDERED: MAGNESIUM SULFATE 1GM / D5W 1 GM in PREMIXED IN D5W 100 ML IV ONE (09:00)
[2017-07-19] MEDS: SOD PHOSPHATE/SOD BIPHOSPHATE ENEMA 132 ML BTL PR SCH (09:00)
[2017-07-19] MEDS: POTASSIUM CHLR 10 MEQ / WTR 10 MEQ in PREMIXED WATER 100 ML IV SCH ×4 (09:31→14:38)
[2017-07-19] MEDS: LEVETIRACETAM 250 MG TAB PO SCH ×2 (09:34→20:16)
[2017-07-19] MEDS: METHENAMINE HIPPURATE 1 GM TAB PO SCH ×2 (09:34→20:18)
[2017-07-19] MEDS: ASPIRIN 81 MG ECTAB PO SCH (09:35)
[2017-07-19] MEDS: MULTIVITAMIN TAB PO SCH (09:35)
[2017-07-19] MEDS: CARBATROL PO SCH ×2 (09:39→20:18)
[2017-07-19 16:21] VITALS: BP 155/82; PULSE 74; TEMP 36.8
--- NOTE | 2017-07-19 18:20 | Progress Note ---
Medicine Progress Note Date & Time of Visit: Jul 19, 2017 at 18:16. Subjective Sleeping but awakens easily to verbal, shakes head "no" when asked about any abdominal pain or nausea/vomiting. No overnight events noted. Diet was advanced today. Has been having BM. Objective Last 8 Hrs Date Time Temp Pulse Resp B/P (MAP) Pulse Ox O2 Delivery O2 Flow Rate FiO2 07/19/17 16:21 36.8 74 16 155/82 (106) Room Air Physical Exam: GENERAL: Patient is in no acute distress. Appears younger than stated age HEENT: No acute trauma, normocephalic, mucous membranes moist, no nasal congestion, no scleral icterus, conjunctivae clear. NECK: No stridor, trachea is midline. LUNGS: Clear to auscultation bilaterally, no wheeze, no rhonchi, breath sounds equal. HEART: Without murmurs gallops or rubs, regular rate and rhythm. ABDOMEN: Soft, nontender, bowel sounds positive, no hepatosplenomegaly EXTREMITIES: No cyanosis or edema NEUROLOGIC: Awake, does not answer questions, no acute focal motor or sensory deficits noted SKIN: No rash, no jaundice, no diaphoresis. Laboratory Results: Last 24 Hours Test 07/19/17 06:17 07/19/17 07:42 07/19/17 16:05 White Blood Count 6.69 K/uL Red Blood Count 3.89 M/uL Hemoglobin 11.6 g/dL Hematocrit 34.6 % Mean Corpuscular Volume 88.9 fL Mean Corpuscular Hemoglobin 29.8 pg Mean Corpuscular Hemoglobin Concent 33.5 g/dl RDW Standard Deviation 43.0 fL RDW Coefficient of Variation 13.2 % Platelet Count 241 K/uL Mean Platelet Volume 10.6 fL Sodium Level 136 mmol/L Potassium Level mmol/L 2.4 mmol/L 3.2 mmol/L Chloride Level 103 mmol/L Carbon Dioxide Level 27 mmol/L Anion Gap 6.0 mmol/L Blood Urea Nitrogen 5 mg/dl Creatinine 0.38 mg/dl Est Creatinine Clear Calc Drug Dose 113.3 ml/min Estimated GFR () 123.5 Estimated GFR (Non- 106.6 BUN/Creatinine Ratio 11.7 Random Glucose 131 mg/dl Calcium Level 8.1 mg/dl Magnesium Level mg/dl 1.7 mg/dl Assessment & Plan RECTOSIGMOID FECAL IMPACTION/POSSIBLE SIGMOID VOLVULUS: -known history of chronic constipation, on several bowel regimen medications -CT in the ED showing rectosigmoid fecal impaction and possible sigmoid volvulus -Surgery consulted, appreciate recs, patient was started on q6 enemas -was NPO, diet advanced today as significant bowel movements and KUB showing decreased fecal load -IV fluids, PRN pain control and antiemetics -GI consulted, recommend continuing the fleets enema and a bowel regimen in addition to above PNEUMONIA, CAP VS. ASPIRATION: -right basilar consolidation noted on CT abd/pelvis -on ceftriaxone + azithromycin day #3 -no signs of sepsis -speech therapy evaluation complete, diet advanced per recs POSSIBLE UTI -has chronic rodriguez -U/A suggests UTI, culture reincubated for pinpoint growth, showing streptococcus -Rocephin day#3 HX SEIZURES -continue Lamictal, carbamazepine, and Keppra HYPOTHYROIDISM -continue Levothyroxine SEVERE MENTAL RETARDATION: -at baseline is awake and alert and able to take PO Current Inpatient Medications: Current Inpatient Medications Medications (Trade) Dose Ordered Sig/Eric Route Start Time Stop Time Status Last Admin Dose Admin Ioversol (Optiray 320) 100 ml UD PRN IV 07/17/17 18:45 07/21/17 18:44 Acetaminophen (Tylenol Tab) 650 mg Q4H PRN PO 07/17/17 22:15 08/16/17 22:14 Ondansetron HCl (Zofran Inj) 4 mg Q6H PRN IV 07/17/17 22:15 08/16/17 22:14 Dextrose/Sodium Chloride 1,000 ml @ 100 mls/hr Q10H IV 07/17/17 23:59 08/16/17 23:58 07/19/17 05:56 100 MLS/HR Ceftriaxone Sodium 1 gm/ Dextrose 50 ml @ 100 mls/hr Q24H IV 07/18/17 21:00 07/23/17 21:29 07/18/17 21:42 100 MLS/HR Azithromycin 250 mg/Dextrose 252.5 ml @ 125 mls/hr DAILY@0000 IV 07/19/17 00:00 07/22/17 02:02 07/19/17 00:34 125 MLS/HR Aspirin (Ecotrin Tab) 81 mg DAILY PO 07/18/17 09:00 2/24/18 08:59 07/19/17 09:35 81 MG Lamotrigine (Lamictal Tab) 350 mg BID PO 07/18/17 09:00 08/17/17 08:59 07/19/17 09:33 350 MG Levetiracetam (Keppra Tab) 750 mg BID PO 07/18/17 09:00 08/17/17 08:59 07/19/17 09:34 750 MG Levothyroxine Sodium (Synthroid Tab) 100 mcg DAILYBB PO 07/18/17 06:00 08/17/17 05:59 Methenamine Hippurate (Urex Tab) 1 gm BID PO 07/18/17 09:00 07/23/17 08:59 07/19/17 09:34 1 GM Multivitamins (Multivitamin Tab) 1 tab DAILY PO 07/18/17 09:00 08/17/17 08:59 07/19/17 09:35 1 TAB Morphine Sulfate (MoRPHine SULFATE INJ) 3 mg Q4H PRN IV 07/17/17 22:45 07/31/17 22:44 Carbamazepine (Carbatrol Extended-Release) 300 mg BID PO 07/19/17 09:00 08/18/17 08:59 07/19/17 09:39 300 MG
[2017-07-19 20:00] VITALS: O2SAT 96
[2017-07-19] MEDS: CEFTRIAXONE SOD INJ 1 GM in DEXTROSE 5% ADD-VANTAGE 50ML 50 ML IV SCH (20:13)
[2017-07-19] MEDS: POTASSIUM CHLORIDE 20 MEQ/15 ML UDC PO SCH (21:11)
[2017-07-19 22:54] VITALS: BP 173/83; PULSE 78; O2SAT 92
[2017-07-20] MEDS: AZITHROMYCIN IV 250 MG in DEXTROSE 5% 250ML 250 ML IV SCH ×2 (00:25→23:53)
[2017-07-20 00:32] VITALS: BP 162/85
[2017-07-20] MEDS: D5W AND NSS 1,000 ML IV SCH ×2 (02:40→14:09)
[2017-07-20] MEDS: LEVOTHYROXINE 100 MCG TAB PO SCH (06:00)
[2017-07-20 07:24] VITALS: BP 120/56; PULSE 61; TEMP 37.1; O2SAT 92
[2017-07-20 08:00] LABS: HEMATOCRIT 32.1 % (37-47); HEMOGLOBIN 10.7 g/dL (12.0-16.0); MEAN CELL VOLUME 89.4 fL (80-100); MEAN CORPUSCULAR HEMOGLOBIN 29.8 pg (25-34); MEAN CORPUSCULAR HGB CONC 33.3 g/dl (32-36); MEAN PLATELET VOLUME 10.1 fL (7.4-10.4); PLATELET COUNT 250 K/uL (130-400); RED CELL DISTRIBUTION WIDTH CV 13.2 % (11.5-14.5); RED CELL DISTRIBUTION WIDTH SD 43.3 fL (36.4-46.3); WHITE BLOOD COUNT 4.86 K/uL (4.8-10.8)
[2017-07-20 08:36] LABS: CALCIUM 7.8 mg/dl (8.5-10.1); CREATININE 0.33 mg/dl (0.60-1.20); POTASSIUM 2.7 mmol/L (3.5-5.1)
[2017-07-20] MEDS: CARBATROL PO SCH ×2 (08:55→21:00)
[2017-07-20] MEDS: POTASSIUM CHLORIDE 20 MEQ/15 ML UDC PO SCH ×2 (08:56→23:00)
[2017-07-20] MEDS: ASPIRIN 81 MG ECTAB PO SCH (08:56)
[2017-07-20] MEDS: LEVETIRACETAM 250 MG TAB PO SCH ×2 (08:58→21:00)
[2017-07-20] MEDS: MULTIVITAMIN TAB PO SCH (08:59)
[2017-07-20] MEDS: METHENAMINE HIPPURATE 1 GM TAB PO SCH ×2 (08:59→21:00)
--- NOTE | 2017-07-20 09:42 | Surgery Progress Note ---
Surgery Progress Note Date of Service Jul 20, 2017. Subjective + bowel movement (multiple), + flatus, No nausea, No vomiting Objective Vital Signs: Date Time Temp Pulse Resp B/P (MAP) Pulse Ox O2 Delivery O2 Flow Rate FiO2 07/20/17 07:24 37.1 61 16 120/56 (77) 92 Room Air 07/20/17 00:32 162/85 (110) 07/20/17 00:00 Room Air 07/19/17 22:54 78 17 173/83 (113) 92 Room Air 07/19/17 20:00 96 Room Air 07/19/17 16:21 36.8 74 16 155/82 (106) Room Air Abdomen: normal bowel sounds, non tender, non distended, soft Laboratory Results: Results Past 24 Hours Test 07/19/17 16:05 07/20/17 07:16 Range/Units Potassium Level 3.2 2.7 3.5-5.1 mmol/L White Blood Count 4.86 4.8-10.8 K/uL Red Blood Count 3.59 4.2-5.4 M/uL Hemoglobin 10.7 12.0-16.0 g/dL Hematocrit 32.1 37-47 % Mean Corpuscular Volume 89.4 80-100 fL Mean Corpuscular Hemoglobin 29.8 25-34 pg Mean Corpuscular Hemoglobin Concent 33.3 32-36 g/dl RDW Standard Deviation 43.3 36.4-46.3 fL RDW Coefficient of Variation 13.2 11.5-14.5 % Platelet Count 250 130-400 K/uL Mean Platelet Volume 10.1 7.4-10.4 fL Sodium Level 140 136-145 mmol/L Chloride Level 106 98-107 mmol/L Carbon Dioxide Level 27 21-32 mmol/L Anion Gap 6.0 3-11 mmol/L Blood Urea Nitrogen 3 7-18 mg/dl Creatinine 0.33 0.60-1.20 mg/dl Est Creatinine Clear Calc Drug Dose 130.5 ml/min Estimated GFR () 129.4 Estimated GFR (Non- 111.6 BUN/Creatinine Ratio 10.0 10-20 Random Glucose 103 70-99 mg/dl Calcium Level 7.8 8.5-10.1 mg/dl Assessment & Plan History of constipation Now resolved Tolerating regular diet No surgical intervention indicated at this time
[2017-07-20 15:04] VITALS: BP 122/83; PULSE 72; TEMP 36.1; O2SAT 93
[2017-07-20 15:30] VITALS: O2SAT 93
--- NOTE | 2017-07-20 18:05 | Progress Note ---
Medicine Progress Note Date & Time of Visit: Jul 20, 2017 at 18:05. Subjective Patient had a small BM today. Has been taking PO without difficulty. All info obtained from staff as patient is not communicating, unclear if this is baseline. No overnight events noted. Patient sleeping but easily awakens on exam and is somewhat combative. Objective Last 8 Hrs Date Time Temp Pulse Resp B/P (MAP) Pulse Ox O2 Delivery O2 Flow Rate FiO2 07/20/17 15:04 36.1 72 16 122/83 (96) 93 Room Air Physical Exam: GENERAL: Patient is in no acute distress. Appears younger than stated age HEENT: No acute trauma, normocephalic, mucous membranes moist, no nasal congestion, no scleral icterus, conjunctivae clear. NECK: No stridor, trachea is midline. LUNGS: Clear to auscultation bilaterally, no wheeze, no rhonchi, breath sounds equal. HEART: Without murmurs gallops or rubs, regular rate and rhythm. ABDOMEN: Soft, nontender, bowel sounds positive, no hepatosplenomegaly EXTREMITIES: No cyanosis or edema NEUROLOGIC: Awake, does not answer questions, no acute focal motor or sensory deficits noted SKIN: No rash, no jaundice, no diaphoresis. Laboratory Results: Last 24 Hours Test 07/20/17 07:16 White Blood Count 4.86 K/uL Red Blood Count 3.59 M/uL Hemoglobin 10.7 g/dL Hematocrit 32.1 % Mean Corpuscular Volume 89.4 fL Mean Corpuscular Hemoglobin 29.8 pg Mean Corpuscular Hemoglobin Concent 33.3 g/dl RDW Standard Deviation 43.3 fL RDW Coefficient of Variation 13.2 % Platelet Count 250 K/uL Mean Platelet Volume 10.1 fL Sodium Level 140 mmol/L Potassium Level 2.7 mmol/L Chloride Level 106 mmol/L Carbon Dioxide Level 27 mmol/L Anion Gap 6.0 mmol/L Blood Urea Nitrogen 3 mg/dl Creatinine 0.33 mg/dl Est Creatinine Clear Calc Drug Dose 130.5 ml/min Estimated GFR () 129.4 Estimated GFR (Non- 111.6 BUN/Creatinine Ratio 10.0 Random Glucose 103 mg/dl Calcium Level 7.8 mg/dl Assessment & Plan RECTOSIGMOID FECAL IMPACTION/POSSIBLE SIGMOID VOLVULUS: -known history of chronic constipation, on several bowel regimen medications -CT in the ED showing rectosigmoid fecal impaction and possible sigmoid volvulus -Surgery consulted, appreciate recs, patient was started on q6 enemas, advised continuing enema for another day -was NPO, diet advanced as significant bowel movements and KUB showing decreased fecal load -IV fluids, PRN pain control and antiemetics; can stop IV fluids now that PO intake is better -GI consulted, recommend continuing the fleets enema and a bowel regimen in addition to above PNEUMONIA, CAP VS. ASPIRATION: -right basilar consolidation noted on CT abd/pelvis -on ceftriaxone + azithromycin day #4 -no signs of sepsis -speech therapy evaluation complete, diet advanced per recs POSSIBLE UTI -has chronic rodriguez -U/A suggests UTI, culture reincubated for pinpoint growth, showing streptococcus -Rocephin day#4 HYPOKALEMIA: -replete and recheck SEIZURE HISTORY: -continue Lamictal, carbamazepine, and Keppra HYPOTHYROIDISM: -continue Levothyroxine SEVERE DEVELOPMENTAL AND COGNITIVE IMPAIRMENT: -at baseline is awake and alert and able to take PO, she is dependent for positioning Current Inpatient Medications: Current Inpatient Medications Medications (Trade) Dose Ordered Sig/Eric Route Start Time Stop Time Status Last Admin Dose Admin Ioversol (Optiray 320) 100 ml UD PRN IV 07/17/17 18:45 07/21/17 18:44 Acetaminophen (Tylenol Tab) 650 mg Q4H PRN PO 07/17/17 22:15 08/16/17 22:14 Ondansetron HCl (Zofran Inj) 4 mg Q6H PRN IV 07/17/17 22:15 08/16/17 22:14 Ceftriaxone Sodium 1 gm/ Dextrose 50 ml @ 100 mls/hr Q24H IV 07/18/17 21:00 07/23/17 21:29 07/19/17 20:13 100 MLS/HR Azithromycin 250 mg/Dextrose 252.5 ml @ 125 mls/hr DAILY@0000 IV 07/19/17 00:00 07/22/17 02:02 07/20/17 00:25 125 MLS/HR Aspirin (Ecotrin Tab) 81 mg DAILY PO 07/18/17 09:00 08/17/17 08:59 07/20/17 08:56 81 MG Lamotrigine (Lamictal Tab) 350 mg BID PO 07/18/17 09:00 08/17/17 08:59 07/20/17 09:00 350 MG Levetiracetam (Keppra Tab) 750 mg BID PO 07/18/17 09:00 08/17/17 08:59 07/20/17 08:58 750 MG Levothyroxine Sodium (Synthroid Tab) 100 mcg DAILYBB PO 07/18/17 06:00 08/17/17 05:59 Methenamine Hippurate (Urex Tab) 1 gm BID PO 07/18/17 09:00 07/23/17 08:59 07/20/17 08:59 1 GM Multivitamins (Multivitamin Tab) 1 tab DAILY PO 07/18/17 09:00 08/17/17 08:59 07/20/17 08:59 1 TAB Morphine Sulfate (MoRPHine SULFATE INJ) 3 mg Q4H PRN IV 07/17/17 22:45 07/31/17 22:44 Carbamazepine (Carbatrol Extended-Release) 300 mg BID PO 07/19/17 09:00 08/18/17 08:59 07/20/17 08:55 300 MG Polyethylene (Miralax Powder Packet) 17 gm BID PO 07/20/17 21:00 08/19/17 20:59 Potassium Chloride (Amisha Ciel Elix) 40 meq BID PO 07/20/17 21:00 08/18/17 20:59 Magnesium Chloride (Slow-Mag Tab) 64 mg BID PO 07/20/17 21:00 08/19/17 20:59 Sodium Biphosphate/ Sodium Phosphate (Fleet Enema) 132 ml BID OR 07/20/17 21:00 07/21/17 09:01
[2017-07-20] MEDS: CEFTRIAXONE SOD INJ 1 GM in DEXTROSE 5% ADD-VANTAGE 50ML 50 ML IV SCH (20:49)
[2017-07-20] MEDS: MAGNESIUM CHLORIDE 64MG DELAYED REL TAB PO SCH (21:00)
[2017-07-20] MEDS: POLYETHYLENE (MIRALAX) 17 GM PACK PO SCH (21:00)
[2017-07-20] MEDS: SOD PHOSPHATE/SOD BIPHOSPHATE ENEMA 132 ML BTL PR SCH (21:07)
[2017-07-20 23:09] VITALS: BP 168/73; PULSE 81; TEMP 36.7; O2SAT 94
[2017-07-21] MEDS: LEVOTHYROXINE 100 MCG TAB PO SCH (05:53)
[2017-07-21 06:10] LABS: HEMATOCRIT 36.3 % (37-47); MEAN CELL VOLUME 89.2 fL (80-100); MEAN CORPUSCULAR HEMOGLOBIN 29.5 pg (25-34); MEAN CORPUSCULAR HGB CONC 33.1 g/dl (32-36); PLATELET COUNT 297 K/uL (130-400); RED CELL DISTRIBUTION WIDTH CV 13.1 % (11.5-14.5); RED CELL DISTRIBUTION WIDTH SD 42.9 fL (36.4-46.3); WHITE BLOOD COUNT 5.77 K/uL (4.8-10.8)
[2017-07-21 06:53] LABS: CALCIUM 7.8 mg/dl (8.5-10.1); CREATININE 0.36 mg/dl (0.60-1.20); POTASSIUM 3.5 mmol/L (3.5-5.1)
[2017-07-21 07:44] VITALS: BP 166/94; PULSE 74; TEMP 36.6; O2SAT 96
[2017-07-21] MEDS: POLYETHYLENE (MIRALAX) 17 GM PACK PO SCH ×2 (08:30→20:39)
[2017-07-21] MEDS: POTASSIUM CHLORIDE 20 MEQ/15 ML UDC PO SCH (08:30)
[2017-07-21] MEDS: CARBATROL PO SCH ×2 (09:08→20:37)
[2017-07-21] MEDS: ASPIRIN 81 MG ECTAB PO SCH (09:09)
[2017-07-21] MEDS: METHENAMINE HIPPURATE 1 GM TAB PO SCH ×2 (09:10→20:37)
[2017-07-21] MEDS: MAGNESIUM CHLORIDE 64MG DELAYED REL TAB PO SCH ×2 (09:10→21:00)
[2017-07-21] MEDS: MULTIVITAMIN TAB PO SCH (09:15)
[2017-07-21] MEDS: LEVETIRACETAM 250 MG TAB PO SCH ×2 (09:16→20:37)
[2017-07-21] MEDS: SOD PHOSPHATE/SOD BIPHOSPHATE ENEMA 132 ML BTL PR SCH (09:17)
--- NOTE | 2017-07-21 10:17 | Surgery Progress Note ---
Surgery Progress Note Date of Service Jul 21, 2017. Subjective + bowel movement, No nausea, No vomiting Denies abdominal pain Objective Vital Signs: Date Time Temp Pulse Resp B/P (MAP) Pulse Ox O2 Delivery O2 Flow Rate FiO2 07/21/17 07:44 36.6 74 18 166/94 (118) 96 Room Air 07/21/17 00:00 Room Air 07/20/17 23:09 36.7 81 16 168/73 (104) 94 Room Air 07/20/17 15:30 93 Room Air 07/20/17 15:04 36.1 72 16 122/83 (96) 93 Room Air Abdomen: normal bowel sounds, non tender, soft, + distended (unchanged) Laboratory Results: Results Past 24 Hours Test 07/21/17 05:30 Range/Units White Blood Count 5.77 4.8-10.8 K/uL Red Blood Count 4.07 4.2-5.4 M/uL Hemoglobin 12.0 12.0-16.0 g/dL Hematocrit 36.3 37-47 % Mean Corpuscular Volume 89.2 80-100 fL Mean Corpuscular Hemoglobin 29.5 25-34 pg Mean Corpuscular Hemoglobin Concent 33.1 32-36 g/dl RDW Standard Deviation 42.9 36.4-46.3 fL RDW Coefficient of Variation 13.1 11.5-14.5 % Platelet Count 297 130-400 K/uL Mean Platelet Volume 10.0 7.4-10.4 fL Sodium Level 137 136-145 mmol/L Potassium Level 3.5 3.5-5.1 mmol/L Chloride Level 104 98-107 mmol/L Carbon Dioxide Level 27 21-32 mmol/L Anion Gap 6.0 3-11 mmol/L Blood Urea Nitrogen 4 7-18 mg/dl Creatinine 0.36 0.60-1.20 mg/dl Est Creatinine Clear Calc Drug Dose 119.6 ml/min Estimated GFR () 125.7 Estimated GFR (Non- 108.5 BUN/Creatinine Ratio 11.1 10-20 Random Glucose 87 70-99 mg/dl Calcium Level 7.8 8.5-10.1 mg/dl Magnesium Level 1.7 1.8-2.4 mg/dl Assessment & Plan History of constipation Now resolved, continues to have bm's Tolerating regular diet No surgical intervention indicated at this time
[2017-07-21 15:36] VITALS: BP 154/75; PULSE 78; TEMP 36.7; O2SAT 96
--- NOTE | 2017-07-21 17:43 | Progress Note ---
Medicine Progress Note Date & Time of Visit: Jul 21, 2017 at 17:43. Subjective Patient awake and mumbling, seems to say no/yes to some questions. Is at her baseline. Has been moving her bowels without difficulty. Tolerating PO. No overnight events noted. Objective Last 8 Hrs Date Time Temp Pulse Resp B/P (MAP) Pulse Ox O2 Delivery O2 Flow Rate FiO2 07/21/17 15:36 36.7 78 18 154/75 (101) 96 Room Air Physical Exam: GENERAL: Patient is in no acute distress. Appears younger than stated age HEENT: No acute trauma, normocephalic, mucous membranes moist, no nasal congestion, no scleral icterus, conjunctivae clear. NECK: No stridor, trachea is midline. LUNGS: Clear to auscultation bilaterally, no wheeze, no rhonchi, breath sounds equal. HEART: Without murmurs gallops or rubs, regular rate and rhythm. ABDOMEN: Soft, nontender, bowel sounds positive, no hepatosplenomegaly EXTREMITIES: No cyanosis or edema, chronic contractures noted NEUROLOGIC: Awake, does not answer questions, no acute focal motor or sensory deficits noted SKIN: No rash, no jaundice, no diaphoresis. Laboratory Results: Last 24 Hours Test 07/21/17 05:30 White Blood Count 5.77 K/uL Red Blood Count 4.07 M/uL Hemoglobin 12.0 g/dL Hematocrit 36.3 % Mean Corpuscular Volume 89.2 fL Mean Corpuscular Hemoglobin 29.5 pg Mean Corpuscular Hemoglobin Concent 33.1 g/dl RDW Standard Deviation 42.9 fL RDW Coefficient of Variation 13.1 % Platelet Count 297 K/uL Mean Platelet Volume 10.0 fL Sodium Level 137 mmol/L Potassium Level 3.5 mmol/L Chloride Level 104 mmol/L Carbon Dioxide Level 27 mmol/L Anion Gap 6.0 mmol/L Blood Urea Nitrogen 4 mg/dl Creatinine 0.36 mg/dl Est Creatinine Clear Calc Drug Dose 119.6 ml/min Estimated GFR () 125.7 Estimated GFR (Non- 108.5 BUN/Creatinine Ratio 11.1 Random Glucose 87 mg/dl Calcium Level 7.8 mg/dl Magnesium Level 1.7 mg/dl Assessment & Plan RECTOSIGMOID FECAL IMPACTION/POSSIBLE SIGMOID VOLVULUS: -known history of chronic constipation, on several bowel regimen medications -CT in the ED showing rectosigmoid fecal impaction and possible sigmoid volvulus -Surgery consulted, appreciate recs, patient was started on q6 enemas, advised continuing enema for another day -was NPO, diet advanced as significant bowel movements and KUB showing decreased fecal load -IV fluids, PRN pain control and antiemetics; can stop IV fluids now that PO intake is better -GI consulted, recommend continuing the fleets enema and a bowel regimen in addition to above and addition of linzess upon discharge PNEUMONIA, CAP VS. ASPIRATION: -right basilar consolidation noted on CT abd/pelvis -on ceftriaxone + azithromycin day #5 -no signs of sepsis -speech therapy evaluation complete, diet advanced per recs POSSIBLE UTI -has chronic rodriguez -U/A suggests UTI, culture reincubated for pinpoint growth, showing streptococcus -Rocephin day#5 HYPOKALEMIA: -replete and recheck SEIZURE HISTORY: -continue Lamictal, carbamazepine, and Keppra HYPOTHYROIDISM: -continue Levothyroxine SEVERE DEVELOPMENTAL AND COGNITIVE IMPAIRMENT: -at baseline is awake and alert and able to take PO, she is dependent for positioning Dispo: Medically stable to return home tomorrow Current Inpatient Medications: Current Inpatient Medications Medications (Trade) Dose Ordered Sig/Eric Route Start Time Stop Time Status Last Admin Dose Admin Ioversol (Optiray 320) 100 ml UD PRN IV 07/17/17 18:45 07/21/17 18:44 Acetaminophen (Tylenol Tab) 650 mg Q4H PRN PO 07/17/17 22:15 08/16/17 22:14 Ondansetron HCl (Zofran Inj) 4 mg Q6H PRN IV 07/17/17 22:15 08/16/17 22:14 Ceftriaxone Sodium 1 gm/ Dextrose 50 ml @ 100 mls/hr Q24H IV 07/18/17 21:00 07/23/17 21:29 07/20/17 20:49 100 MLS/HR Azithromycin 250 mg/Dextrose 252.5 ml @ 125 mls/hr DAILY@0000 IV 07/19/17 00:00 07/22/17 02:02 07/20/17 23:53 125 MLS/HR Aspirin (Ecotrin Tab) 81 mg DAILY PO 07/18/17 09:00 08/17/17 08:59 07/21/17 09:09 81 MG Lamotrigine (Lamictal Tab) 350 mg BID PO 07/18/17 09:00 08/17/17 08:59 07/21/17 09:11 350 MG Levetiracetam (Keppra Tab) 750 mg BID PO 07/18/17 09:00 08/17/17 08:59 07/21/17 09:16 750 MG Levothyroxine Sodium (Synthroid Tab) 100 mcg DAILYBB PO 07/18/17 06:00 08/17/17 05:59 Methenamine Hippurate (Urex Tab) 1 gm BID PO 07/18/17 09:00 07/23/17 08:59 07/21/17 09:10 1 GM Multivitamins (Multivitamin Tab) 1 tab DAILY PO 07/18/17 09:00 08/17/17 08:59 07/21/17 09:15 1 TAB Morphine Sulfate (MoRPHine SULFATE INJ) 3 mg Q4H PRN IV 07/17/17 22:45 07/31/17 22:44 Carbamazepine (Carbatrol Extended-Release) 300 mg BID PO 07/19/17 09:00 08/18/17 08:59 07/21/17 09:08 300 MG Polyethylene (Miralax Powder Packet) 17 gm BID PO 07/20/17 21:00 08/19/17 20:59 07/21/17 08:30 17 GM Magnesium Chloride (Slow-Mag Tab) 64 mg BID PO 07/20/17 21:00 08/19/17 20:59 07/21/17 09:10 64 MG Potassium Chloride (Klor-Con M10) 40 meq BID PO 07/21/17 21:00 08/20/17 20:59
[2017-07-21] MEDS: CEFTRIAXONE SOD INJ 1 GM in DEXTROSE 5% ADD-VANTAGE 50ML 50 ML IV SCH (20:39)
[2017-07-21] MEDS: POTASSIUM CHLORIDE 10 MEQ TABCR PO SCH (21:00)
[2017-07-21] MEDS ORDERED: MAGNESIUM SULFATE 1GM / D5W 1 GM in PREMIXED IN D5W 100 ML IV ONE (21:30)
[2017-07-21] MEDS: POTASSIUM CHLR 10 MEQ / WTR 10 MEQ in PREMIXED WATER 100 ML IV SCH ×2 (21:34→22:34)
[2017-07-21 22:59] VITALS: BP 151/71; PULSE 82; TEMP 36.4; O2SAT 96
[2017-07-21] MEDS: AZITHROMYCIN IV 250 MG in DEXTROSE 5% 250ML 250 ML IV SCH (23:32)
[2017-07-22] MEDS: LEVOTHYROXINE 100 MCG TAB PO SCH (05:30)
--- NOTE | 2017-07-22 06:35 | Surgery Progress Note ---
Surgery Progress Note Date of Service Jul 22, 2017. Subjective no acute chgs Objective Vital Signs: Date Time Temp Pulse Resp B/P (MAP) Pulse Ox O2 Delivery O2 Flow Rate FiO2 07/21/17 22:59 36.4 82 20 151/71 (97) 96 Room Air 07/21/17 20:13 Room Air 07/21/17 15:36 36.7 78 18 154/75 (101) 96 Room Air 07/21/17 09:17 Room Air 07/21/17 07:44 36.6 74 18 166/94 (118) 96 Room Air Abdomen: non distended, soft Laboratory Results: Results Past 24 Hours Test 07/22/17 06:13 Range/Units Assessment & Plan 07/22/17- stable from surgical standpoint- should be able maintain bowel function with stool softeners and enemas 07/19/17- abd much softer, no distention- enemas ordered no indication for surgery at this point. will cont to follow Dr Shaw covering over weekend 07/18/17- h/o chronic constipation- now with stool burden in rectosigmoid- try fleets this am, then more aggressive if needed. GI to see later. If any surgery needed to correct chronic problem- would be diverting colostomy. 07/17/17- unknown etiology of illness- ? urinary tract, respiratory has fecal impaction- likely a chronic problem not requiring urgent surgical intervention. Consider GI evaluation to help decompress, may benefit from gentle enema. 07/19/17- abd much softer, no distention- enemas ordered no indication for surgery at this point. will cont to follow Dr Shaw covering over weekend 07/18/17- h/o chronic constipation- now with stool burden in rectosigmoid- try fleets this am, then more aggressive if needed. GI to see later. If any surgery needed to correct chronic problem- would be diverting colostomy. 07/17/17- unknown etiology of illness- ? urinary tract, respiratory has fecal impaction- likely a chronic problem not requiring urgent surgical intervention. Consider GI evaluation to help decompress, may benefit from gentle enema.
[2017-07-22 07:13] VITALS: BP 140/77; PULSE 66; TEMP 36.4; O2SAT 94
[2017-07-22 07:30] VITALS: O2SAT 94
[2017-07-22 07:52] LABS: CALCIUM 7.9 mg/dl (8.5-10.1); CREATININE 0.39 mg/dl (0.60-1.20); POTASSIUM 3.7 mmol/L (3.5-5.1)
[2017-07-22] MEDS: CARBATROL PO SCH (09:13)
[2017-07-22] MEDS: LEVETIRACETAM 250 MG TAB PO SCH (09:14)
[2017-07-22] MEDS: ASPIRIN 81 MG ECTAB PO SCH (09:14)
[2017-07-22] MEDS: POTASSIUM CHLORIDE 10 MEQ TABCR PO SCH (09:22)
[2017-07-22] MEDS: POLYETHYLENE (MIRALAX) 17 GM PACK PO SCH (09:26)
[2017-07-22] MEDS: MULTIVITAMIN TAB PO SCH (09:26)
[2017-07-22] MEDS: MAGNESIUM CHLORIDE 64MG DELAYED REL TAB PO SCH (09:27)
[2017-07-22] MEDS: METHENAMINE HIPPURATE 1 GM TAB PO SCH (09:29)
[2017-07-22] MEDS ORDERED: SLWMEC PO (12:02)
[2017-07-22] MEDS ORDERED: MRLP17 PO (12:02)
[2017-07-22] MEDS ORDERED: LINA1CAP PO (12:02)
[2017-07-22] MEDS ORDERED: POTA10CA28 PO (12:02)
--- NOTE | 2017-07-22 12:06 | Discharge Instructions ---
Discharge Instructions Date of Service Jul 22, 2017. Admission Reason for Admission: Sigmoid Volvulus Discharge Discharge Diagnosis / Problem: Fecal impaction, Pneumonia Discharge Goals Goal(s): Therapeutic intervention Activity Recommendations Activity Limitations: resume your previous activity . Instructions / Follow-Up Instructions / Follow-Up Please see Dr. Carvalho on July 26 at 11:05AM for hospital follow up Please follow up with GI as scheduled Current Hospital Diet Patient's current hospital diet: Regular Diet Discharge Diet Recommended Diet: Regular Diet Pending Studies Studies pending at discharge: no Medical Emergencies . Who to Call and When: Medical Emergencies: If at any time you feel your situation is an emergency, please call 911 immediately. . Non-Emergent Contact Non-Emergency issues call your: Primary Care Provider . . "Provider Documentation" section prepared by Gladys Loera. . VTE Core Measure Inpt VTE Proph given/why not?: SCD's
[2017-07-22 12:08] VITALS: BP 140/77; PULSE 66; TEMP 36.4; O2SAT 94
--- NOTE | 2017-08-04 20:00 | Discharge Summary ---
Discharge Summary Date of Service Aug 04, 2017. Discharge Summary Admission Date: Jul 17, 2017 at 22:08 Discharge Date: Jul 22, 2017 Discharge Disposition: Home Principal Diagnosis: Fecal impaction, possible sigmoid volvulus, hypokalemia Pending Studies/Follow-Up: BMP and mag recheck Medication Reconciliation New Medications: Linaclotide (Linzess) 145 Mcg Cap 1 CAP PO DAILY, #30 CAP Magnesium Chloride (Slow-Mag Tab) 64 Mg Tabcr 64 MG PO DAILY, #7 TABS Polyethylene (Miralax) 17 Gm Pow 17 GM PO BID, #60 DOSE Potassium Chloride (Micro-K Ext Rel) 10 Meq Capcr 40 MEQ PO DAILY for 7 Days, #28 TABS Continued Medications: Acetaminophen (Tylenol) 325 Mg Tab 650 MG PO Q4H PRN for Pain or Fever, 0 Refills Aspirin (Aspirin 81) 81 Mg Tab 81 MG PO DAILY Calcium Carbonate-Vitamin D (Oyster Shell/Vitamin D) 1 Tab Tab 1 TABLET PO HS Carbamazepine (Carbatrol ER) 300 Mg Capcr 300 MG PO BID Denosumab (Prolia) 60 Mg/Ml Kesha 60 MG INJ Q6MO Docusate Sodium (Docusate Sodium) 100 Mg Cap 100 MG PO BID Fluticasone Propionate (Nasal) (Flonase Allergy Relief) 50 Mcg/Act Spr 2 SPRAYS NA DAILY Guaifenesin (Robitussin) 100 Mg/5 Ml Kesha 2 TSP PO Q4H PRN for Cough Hydrocortisone 2.5% (Rectal) (Anusol-Hc 2.5%) 2.5 % Cre 1 APPLN TOP BID for 7 Days, #30 GM Lactulose (Chronulac) 10 Gm/15 Ml Syrp 15 ML PO BID Lamotrigine (Lamictal) 100 Mg Tab 350 MG PO BID, TAB Levetiracetam (Keppra) 750 Mg Tab 750 MG PO BID, TAB Levofloxacin (Levaquin) 500 Mg Tab 500 MG PO DAILY for 7 Days Levothyroxine Sodium (Levothyroxine Sodium) 100 Mcg Tab 100 MCG PO DAILY Methenamine Hippurate (Methenamine Hippurate) 1 Gm Tab 1 GM PO BID Metronidazole Hcl (Metronidazole) 135 Appln/45 Gm Cr 1 APPLN TOP BID APPLY TO AFFECTED AREAS ON FACE. Multivitamin (Multivitamin) Tab 1 TABLET PO DAILY, 0 Refills Neomycin/Polymyx/Bacitr (Neosporin) Oint 1 APPLN TOP PRN Nystatin (Topical) (Nystatin) 100,000 Unit/Gm Pow 1 APPLN PO PRN Sennosides-Docusate Sodium (Sennalax-S) 1 Tab Tab 1 TABLET PO BID Skin Protectants, Misc. (Aloe [place] Protective) 43 % Oin 1 APPLN TOP BID Discontinued Medications: Calcium Polycarbophil (Fibercon) 625 Mg Tab 625 MG PO DAILY, CPLT Loperamide Hcl (Imodium A-D) 2 Mg Tab 2-4 MG PO UD PRN for Diarrhea TAKE TWO TABLETS (4 MG) AFTER FIRST LOOSE STOOL THEN ONE TABLET (2 MG) AFTER EACH ADDITIONAL LOOSE STOOL. Polyethylene Glycol 3350 (Miralax) 1 Pow Pow 1 DOSE PO UD PRN for Constipation MIX ONE CAPFUL IN 8 OUNCES OF WATER OR JUICE. IF NO BOWEL MOVEMENT IN 12 HOURS AFTER GIVING DUCOLAX SUPPOSITORY INCREASE MIRALAX TO 2 CAPFULS IN 16 OUNCES OF WATER OR JUICE. Admission Information HPI (per Admitting provider): 71 year old female who presents to the ED from [facility] for evaluation of lethargy and cough. Patient has severe mental retardation and cannot provide any history. History is obtained from caregiver who is at the bedside. Patient has had a moist non productive cough and rhinorrhea for the past 4 days. She was seen by her PCP yesterday who placed her on Levaquin for a suspected pneumonia. Patient has had increasing lethargy so she was brought to the ED for further evaluation. Patient has chronic issues with constipation. Last bowel movement was this morning however it was a small amount. No vomiting or diarrhea. Her temperature was not checked. She has a chronic rodriguez catheter in place. In the ED, patient underwent CT abd/pelvis that is showing rectosigmoid fecal impaction and possible sigmoid volvulus. Right basilar lung consolidation was also noted. U/A suggests UTI. Patient was given IV Rocephin. Labs are unremarkable and vitals are stable. Physical Exam (per Admitting): General Appearance: WD/WN, no apparent distress Head: normocephalic, atraumatic Eyes: normal inspection, EOMI, sclerae normal ENT: hearing grossly normal, + pertinent finding (mucous membranes moist) Neck: supple, no JVD, trachea midline Respiratory/Chest: no respiratory distress, + crackles (right mid-base lung martin) Cardiovascular: regular rate, rhythm, normal peripheral pulses, + pertinent finding (trace edema BLLE) Abdomen/GI: soft, + tenderness (generalized), + abnormal bowel sounds ( hypoactive), + distended Genitourinary - Female: + pertinent finding (rodriguez in place draining clear yellow urine) Extremities/Musculoskelatal: no calf tenderness, normal capillary refill, + pertinent finding (LUE contracted) Neurologic/Psych: + pertinent finding (severe mental retardation, speech incoherent) Skin: normal color, warm/dry Hospital Course RECTOSIGMOID FECAL IMPACTION/POSSIBLE SIGMOID VOLVULUS: -known history of chronic constipation, on several bowel regimen medications -CT in the ED showing rectosigmoid fecal impaction and possible sigmoid volvulus -Surgery consulted, appreciate recs, patient was started on q6 enemas, advised continuing enema for another day -was NPO, diet advanced as significant bowel movements and KUB showing decreased fecal load -IV fluids, PRN pain control and antiemetics; can stop IV fluids now that PO intake is better -GI consulted, recommend continuing the fleets enema and a bowel regimen in addition to above and addition of linzess upon discharge PNEUMONIA, CAP VS. ASPIRATION: -right basilar consolidation noted on CT abd/pelvis -on ceftriaxone + azithromycin, to continue levaquin upon discharge -no signs of sepsis -speech therapy evaluation complete, diet advanced per recs POSSIBLE UTI -has chronic rodriguez -U/A suggests UTI, culture reincubated for pinpoint growth, showing streptococcus -Rocephin HYPOKALEMIA: -replete and recheck SEIZURE HISTORY: -continue Lamictal, carbamazepine, and Keppra HYPOTHYROIDISM: -continue Levothyroxine SEVERE DEVELOPMENTAL AND COGNITIVE IMPAIRMENT: -at baseline is awake and alert and able to take PO, she is dependent for positioning PHYSICAL EXAM: GENERAL: Patient is in no acute distress. Appears younger than stated age HEENT: No acute trauma, normocephalic, mucous membranes moist, no nasal congestion, no scleral icterus, conjunctivae clear. NECK: No stridor, trachea is midline. LUNGS: Clear to auscultation bilaterally, no wheeze, no rhonchi, breath sounds equal. HEART: Without murmurs gallops or rubs, regular rate and rhythm. ABDOMEN: Soft, nontender, bowel sounds positive, no hepatosplenomegaly EXTREMITIES: No cyanosis or edema, chronic contractures noted NEUROLOGIC: Awake, does not answer questions, no acute focal motor or sensory deficits noted SKIN: No rash, no jaundice, no diaphoresis. Total time spent on discharge = 39 This includes examination of the patient, discharge planning, medication reconciliation, and communication with other providers. Discharge Instructions see patient instructions
== END 2017-07-22 15:00 | disposition home or self-care (01) | DRG 388 ==
LOC: EDBD 15:07 → C.EDA 15:09 → C.MSW 22:08 → ENRESERV 22:21
PROVIDERS: ADMIT Internal Medicine; ATTEND Internal Medicine
DX: K56.2 Volvulus (principal); J69.0 Pneumonitis due to inhalation of food and vomit; T83.511A Infection and inflammatory reaction due to indwelling urethral catheter, initial encounter; F72 Severe intellectual disabilities; N39.0 Urinary tract infection, site not specified; G80.9 Cerebral palsy, unspecified; R56.9 Unspecified convulsions; E78.5 Hyperlipidemia, unspecified; Z79.82 Long term (current) use of aspirin; G40.909 Epilepsy, unspecified, not intractable, without status epilepticus; E03.9 Hypothyroidism, unspecified; Z82.49 Family history of ischemic heart disease and other diseases of the circulatory system; K56.41 Fecal impaction; K59.8 Other specified functional intestinal disorders; D64.9 Anemia, unspecified; E87.6 Hypokalemia

== ENCOUNTER 2017-08-20 17:34 | Emergency (ER) | payer OTHER ==
[~2017-08-20] VITALS: Ht 142.2 cm; Wt 64.3 kg
[~2017-08-20 17:34] MED LIST changes: +ACET-1311 PO; -ACET-749 PO; -ANSHCCR TOP; +ASPI-435 PO; -ASPI81TA82 PO; -BISA-16 PR; +CALCTAB43 PO; +DENO60SO INJ; -DEXTSYP41 PO; +DOCU100C31 PO; -FLNIN NAE; +FLUT0.15; +HYDR2.5C37 TOP; +KPP/750 PO; +LACT10SO17 PO; +LAMO100T PO; -LEVO100T PO; +LEVO100T7 PO; +LEVO1TAB33 PO; +LINA1CAP PO; +METH-1305 PO; -METH1TAB2 PO; -METR1GEL3 TOP; -MOML PO; +MRLP17 PO; +MTRCR45 TOP; +NEOMOIN3 TOP; +NYST100033 PO; +POTA10CA28 PO; +RBTUDL5 PO; +SENN1TAB86 PO; +SLWMEC PO; +[UNRECOGNIZED DRUG - CODE] PO
[2017-08-20 17:46] VITALS: TEMP 36.6; Ht 142.2 cm; Wt 64.3 kg
[2017-08-20 18:13] LABS: BASO % 0.7 %; BASO ABS # 0.03 K/uL (0-0.2); EOS % 6.2 %; EOS ABS # 0.26 K/uL (0-0.5); HEMATOCRIT 37.2 % (37-47); HEMOGLOBIN 12.4 g/dL (12.0-16.0); LYMPH % 43.2 %; LYMPH ABS # 1.81 K/uL (1.2-3.4); MEAN CELL VOLUME 89.4 fL (80-100); MEAN CORPUSCULAR HEMOGLOBIN 29.8 pg (25-34); MEAN CORPUSCULAR HGB CONC 33.3 g/dl (32-36); MEAN PLATELET VOLUME 9.5 fL (7.4-10.4); MONO ABS # 0.42 K/uL (0.11-0.59); NEUT % 39.9 %; NEUT ABS # 1.67 K/uL (1.4-6.5); PLATELET COUNT 254 K/uL (130-400); RED CELL DISTRIBUTION WIDTH CV 14.4 % (11.5-14.5); RED CELL DISTRIBUTION WIDTH SD 47.1 fL (36.4-46.3); WHITE BLOOD COUNT 4.19 K/uL (4.8-10.8)
[2017-08-20 18:32] LABS: ALBUMIN 3.6 gm/dl (3.4-5.0); CALCIUM 9.5 mg/dl (8.5-10.1); CREATININE 0.56 mg/dl (0.60-1.20); POTASSIUM 3.5 mmol/L (3.5-5.1)
[2017-08-20 18:35] LABS: TOTAL PROTEIN 7.9 gm/dl (6.4-8.2)
--- NOTE | 2017-08-20 18:35 | DIAGNOSTIC IMAGING REPORT ---
CT OF THE ABDOMEN AND PELVIS WITHOUT CONTRAST CLINICAL HISTORY: Twisted bowel. Possible volvulus. COMPARISON STUDY: CT of the abdomen and pelvis July 17, 2017 and KUB July 19, 2017. TECHNIQUE: Axial images of the abdomen and pelvis were obtained without IV contrast. Images were reviewed in the axial, sagittal, and coronal planes. A dose lowering technique was utilized adhering to the principles of ALARA. FINDINGS: Visualized portions the lower chest demonstrate moderate cardiomegaly. There is asymmetric interstitial lung disease within the right lung. No pneumatosis, free air or portal venous gas is present. Evaluation of the abdomen and pelvis is suboptimal on this unenhanced exam. Unenhanced images of liver, spleen, adrenal glands and kidneys are unremarkable. Images of the pelvis are degraded from artifact from right hip arthroplasty. Multiple large radiodensities within the bladder are again noted. These are unchanged. A Alvarado balloon within the bladder is noted. There is marked distention of the sigmoid colon that measures 13 cm in diameter. There is a moderate amount stool within the rectum. There is mild rectal wall thickening with mild perirectal infiltration. The amount of stool within the rectum is diminished when compared to exam of July 17, 2017. No transition point is identified to suggest a bowel obstruction. There is no significant bowel twisting. Remainder of the colon is mildly distended. No suspicious osseous lesions are present. IMPRESSION: 1. Marked dilatation of the sigmoid colon, similar to exam of July 17, 2017. No evidence for a volvulus or other mechanical bowel obstruction. The findings favor a colonic pseudoobstruction. Close clinical monitoring is recommended given the degree of dilatation. 2. Moderate amount of stool within the rectum which is significantly diminished when compared to prior exam. Mild persistent rectal wall thickening and perirectal infiltration could reflect proctitis/stercoral colitis which was shown on previous study. Electronically signed by: Jacobo Falk M.D. 08/20/2017 6:34 PM Dictated Date/Time: 08/20/2017 6:21 PM
[2017-08-20] MEDS ORDERED: FLUCONAZOLE 50 MG TAB PO ONE (19:15)
[2017-08-20 19:19] VITALS: BP 194/81
[2017-08-20] MEDS ORDERED: SOD PHOSPHATE/SOD BIPHOSPHATE ENEMA 132 ML BTL PR STA (19:34)
[2017-08-20 20:31] VITALS: PULSE 62; O2SAT 97
--- NOTE | 2017-08-20 21:57 | EMERGENCY ROOM VISIT NOTE ---
History Report prepared by Tim: Elfego Alexis Under the Supervision of: Dr. Murray Evans D.O. First contact with patient: 17:35 Stated Complaint: TWISTED BOWEL History of Present Illness This HPI is limited secondary to the patient's intellectual disability/MR. The patient is a 72 year old female who presents to the Emergency Room after referral from the [facility] after an abdominal x-ray today. The patient has a history of abdominal twisted bowel. The x-ray today showed worsening of this condition. Unable to obtain history from patient. Caretakers note that she has been having diarrhea for the past 2 days. With her recent admission for a volvulus she was discharged. They had contacted [facility] who recommended a KUB. This suggested a possible volvulus again. This is why they referred into the ER. Patient has been eating and drinking normally. Source of History: nursing staff History Limited By: other (intillectual disability) Position: abdomen Review of Systems Limited secondary to the patient's intellectual disability. Past Medical & Surgical Medical Problems: (1) Alvarado catheter in place (2) Gastroesophageal reflux disease (3) History of DVT (deep vein thrombosis) (4) Hypothyroidism (5) Intellectual disability (6) Osteoporosis (7) Pulmonary fibrosis (8) Seizure disorder Surgical Problems: (1) Total replacement of hip Family History Hypertension MOTHER Social History Smoking Status: Never Smoker Alcohol Use: none Housing Status: assisted living Occupation Status: disabled Current/Historical Medications Scheduled Aspirin (Aspirin 81), 81 MG PO DAILY Calcium Carbonate-Vitamin D (Oyster Shell/Vitamin D), 1 TABLET PO HS Carbamazepine (Carbatrol ER), 300 MG PO BID Denosumab (Prolia), 60 MG INJ Q6MO Docusate Sodium (Docusate Sodium), 100 MG PO BID Fluticasone Propionate (Nasal) (Flonase Allergy Relief), 2 SPRAYS NA DAILY Hydrocortisone 2.5% (Rectal) (Anusol-Hc 2.5%), 1 APPLN TOP BID Lamotrigine (Lamictal), 350 MG PO BID Levetiracetam (Keppra), 750 MG PO BID Levothyroxine Sodium (Levothyroxine Sodium), 100 MCG PO DAILY Linaclotide (Linzess), 1 CAP PO DAILY Methenamine Hippurate (Methenamine Hippurate), 1 GM PO BID Metronidazole Hcl (Metronidazole), 1 APPLN TOP BID Multivitamin (Multivitamin), 1 TABLET PO DAILY Neomycin/Polymyx/Bacitr (Neosporin), 1 APPLN TOP PRN Nystatin (Topical) (Nystatin), 1 APPLN PO PRN Polyethylene (Miralax), 17 GM PO BID Potassium Chloride (Micro-K Ext Rel), 40 MEQ PO DAILY Sennosides-Docusate Sodium (Sennalax-S), 1 TABLET PO BID Skin Protectants, Misc. (Aloe [place] Protective), 1 APPLN TOP BID Scheduled PRN Acetaminophen (Tylenol), 650 MG PO Q4H PRN for Pain or Fever Guaifenesin (Robitussin), 2 TSP PO Q4H PRN for Cough Allergies Coded Allergies: No Known Allergies (Verified , 12/18/12) Physical Exam Vital Signs Date Time Temp Pulse Resp B/P (MAP) Pulse Ox O2 Delivery O2 Flow Rate FiO2 08/20/17 20:31 62 97 08/20/17 19:33 57 08/20/17 19:19 65 194/81 100 Room Air 08/20/17 17:46 36.6 70 20 193/113 100 Room Air Physical Exam GENERAL: Sitting up in bed, alert, well appearing, well nourished, Screaming intermittently, no distress, non-toxic EYE EXAM: normal conjunctiva. OROPHARYNX: no exudate, no erythema, lips, buccal mucosa, and tongue normal and mucous membranes are moist NECK: supple, no nuchal rigidity, no adenopathy, non-tender LUNGS: Clear to auscultation. Normal chest wall mechanics HEART: no murmurs, S1 normal and S2 normal ABDOMEN: abdomen soft, Distended, non-tender, normo-active bowel sounds, no masses, no rebound or guarding. BACK: Back is symmetrical on inspection and there is no deformity, no midline tenderness, no CVA tenderness. SKIN: no rashes and no bruising UPPER EXTREMITIES: upper extremities are held tight to chest. LOWER EXTREMITIES: No pitting edema. NEURO EXAM: Patient is awake. Her UE are being held tight to chest, moving lower extremities spontaneously Medical Decision & Procedures ER Provider Diagnostic Interpretation: Radiology results as stated below per my review and the radiologist's interpretation: CT OF THE ABDOMEN AND PELVIS WITHOUT CONTRAST CLINICAL HISTORY: Twisted bowel. Possible volvulus. COMPARISON STUDY: CT of the abdomen and pelvis July 17, 2017 and KUB July 19, 2017. TECHNIQUE: Axial images of the abdomen and pelvis were obtained without IV contrast. Images were reviewed in the axial, sagittal, and coronal planes. A dose lowering technique was utilized adhering to the principles of ALARA. FINDINGS: Visualized portions the lower chest demonstrate moderate cardiomegaly. There is asymmetric interstitial lung disease within the right lung. No pneumatosis, free air or portal venous gas is present. Evaluation of the abdomen and pelvis is suboptimal on this unenhanced exam. Unenhanced images of liver, spleen, adrenal glands and kidneys are unremarkable. Images of the pelvis are degraded from artifact from right hip arthroplasty. Multiple large radiodensities within the bladder are again noted. These are unchanged. A Alvarado balloon within the bladder is noted. There is marked distention of the sigmoid colon that measures 13 cm in diameter. There is a moderate amount stool within the rectum. There is mild rectal wall thickening with mild perirectal infiltration. The amount of stool within the rectum is diminished when compared to exam of July 17, 2017. No transition point is identified to suggest a bowel obstruction. There is no significant bowel twisting. Remainder of the colon is mildly distended. No suspicious osseous lesions are present. IMPRESSION: 1. Marked dilatation of the sigmoid colon, similar to exam of July 17, 2017. No evidence for a volvulus or other mechanical bowel obstruction. The findings favor a colonic pseudoobstruction. Close clinical monitoring is recommended given the degree of dilatation. 2. Moderate amount of stool within the rectum which is significantly diminished when compared to prior exam. Mild persistent rectal wall thickening and perirectal infiltration could reflect proctitis/stercoral colitis which was shown on previous study. Electronically signed by: Jacobo Falk M.D. 08/20/2017 6:34 PM Dictated Date/Time: 08/20/2017 6:21 PM Laboratory Results 08/20/17 17:50 Red Blood Count 4.16, Mean Corpuscular Volume 89.4, Mean Corpuscular Hemoglobin 29.8, Mean Corpuscular Hemoglobin Concent 33.3, Mean Platelet Volume 9.5, Neutrophils (%) (Auto) 39.9, Lymphocytes (%) (Auto) 43.2, Monocytes (%) (Auto) 10.0, Eosinophils (%) (Auto) 6.2, Basophils (%) (Auto) 0.7, Neutrophils # (Auto ) 1.67, Lymphocytes # (Auto) 1.81, Monocytes # (Auto) 0.42, Eosinophils # (Auto ) 0.26, Basophils # (Auto) 0.03 08/20/17 17:50 Test 08/20/17 17:50 08/20/17 18:00 White Blood Count 4.19 K/uL (4.8-10.8) Red Blood Count 4.16 M/uL (4.2-5.4) Hemoglobin 12.4 g/dL (12.0-16.0) Hematocrit 37.2 % (37-47) Mean Corpuscular Volume 89.4 fL (80-100) Mean Corpuscular Hemoglobin 29.8 pg (25-34) Mean Corpuscular Hemoglobin Concent 33.3 g/dl (32-36) Platelet Count 254 K/uL (130-400) Mean Platelet Volume 9.5 fL (7.4-10.4) Neutrophils (%) (Auto) 39.9 % Lymphocytes (%) (Auto) 43.2 % Monocytes (%) (Auto) 10.0 % Eosinophils (%) (Auto) 6.2 % Basophils (%) (Auto) 0.7 % Neutrophils # (Auto) 1.67 K/uL (1.4-6.5) Lymphocytes # (Auto) 1.81 K/uL (1.2-3.4) Monocytes # (Auto) 0.42 K/uL (0.11-0.59) Eosinophils # (Auto) 0.26 K/uL (0-0.5) Basophils # (Auto) 0.03 K/uL (0-0.2) RDW Standard Deviation 47.1 fL (36.4-46.3) RDW Coefficient of Variation 14.4 % (11.5-14.5) Immature Granulocyte % (Auto) 0.0 % Immature Granulocyte # (Auto) 0.00 K/uL (0.00-0.02) Anion Gap 8.0 mmol/L (3-11) Est Creatinine Clear Calc Drug Dose 68.1 ml/min Estimated GFR () 108.0 Estimated GFR (Non- 93.2 BUN/Creatinine Ratio 23.2 (10-20) Calcium Level 9.5 mg/dl (8.5-10.1) Total Bilirubin 0.5 mg/dl (0.2-1) Direct Bilirubin 0.1 mg/dl (0-0.2) Aspartate Amino Transf (AST/SGOT) 13 U/L (15-37) Alanine Aminotransferase (ALT/SGPT) 24 U/L (12-78) Alkaline Phosphatase 122 U/L (45-117) Total Protein 7.9 gm/dl (6.4-8.2) Albumin 3.6 gm/dl (3.4-5.0) Lipase 490 U/L (73-393) Urine Color YELLOW Urine Appearance TURBID (CLEAR) Urine pH 7.0 (4.5-7.5) Urine Specific [place] 1.005 (1.000-1.030) Urine Protein NEG (NEG) Urine Glucose (UA) NEG (NEG) Urine Ketones NEG (NEG) Urine Occult Blood 2+ (NEG) Urine Nitrite NEG (NEG) Urine Bilirubin NEG (NEG) Urine Urobilinogen NEG (NEG) Urine Leukocyte Esterase LARGE (NEG) Urine WBC (Auto) >30 /hpf (0-5) Urine RBC (Auto) 10-30 /hpf (0-4) Urine Hyaline Casts (Auto) 0 /lpf (0-5) Urine Epithelial Cells (Auto) >30 /lpf (0-5) Urine Bacteria (Auto) 2+ (NEG) Urine Pathogenic Casts /lpf (0) Urine Yeast (Auto) BUD W/ HYPHAE (NONE PRSENT) Laboratory results per my review. Medications Administered Medications (Trade) Dose Ordered Sig/Eric Route Start Time Stop Time Status Last Admin Dose Admin Fluconazole (Diflucan Tab) 150 mg NOW ONCE PO 08/20/17 19:15 08/20/17 19:16 DC 08/20/17 19:15 150 MG Sodium Biphosphate/ Sodium Phosphate (Fleet Enema) 132 ml NOW STAT OK 08/20/17 19:34 08/20/17 19:35 DC 08/20/17 19:34 132 ML ED Course ED COURSE: Vital signs were reviewed and showed hypertensive The patients medical record was reviewed The above diagnostic studies were performed and reviewed. ED treatments and interventions as stated above. 1736: The patient was evaluated in room C7. A complete history and physical examination was performed. 5: Ordered Diflucan Tab 150 mg PO. 5: The patient' full fashioned garment knitter has arrived at bedside at this time. She notes that the patient has had diarrhea for the past 2 days. 1932: I discussed the case with Dr. Dave - [place]. He recommends discharge with outpatient follow-up as this is likely an institutional bowel. He asks that I order a stool softener as well. 1933: Ordered Fleet Enema 132 mL OK. 1945: Upon reevaluation, the patient is resting in bed.I discussed my findings with the patient's full fashioned garment knitter and the full fashioned garment knitter understands and agrees with the treatment plan. Based on the patients age, coexisting illnesses, exam and lab findings the decision to treat as an outpatient was made. The patient remained stable while under my care. The patient appeared well at the time of discharge. Medical Decision Differential diagnoses includes but is not limited to gastritis, peptic ulcer disease, GERD, gallbladder disease, pancreatitis, small bowel obstruction, acute coronary syndrome, pericarditis, ischemic bowel, irritable bowel disease, irritable bowel syndrome, appendicitis, diverticulitis, malignancy, hernia, urinary tract infection, torsion, perforation, trauma, infectious. Patient is a 72-year-old female with a history of MR who was recently admitted and discharged for a possible volvulus. I extensively reviewed her records and she did not have a colonoscopy as she was not deemed to be a candidate for this. She did a KUB today which showed possible recurrence of the volvulus and consequently she was sent in here. She has had diarrhea for the past [address] shows no volvulus or obstruction. Abdominal exam is benign but with her history of MR unsure of how reliable exam is. CBC shows a white count of 4. BMP along with bilirubin and LFTs were normal. Lipase was slightly elevated at 490 but there is no signs of pancreatitis on CT and lipase is only minimally elevated. UA was contaminated with multiple epithelial cells. There was yeast present and she was treated with Diflucan. Will send for culture with chronic Alvarado and likely colonization. No fevers or white count to suggest true infection. CT was obtained and did show a markedly distended colon consistent with previous CT without volvulus. Discussed with GI. Dr. Dave favors this is likely institutional gut and recommended an enema and following up as an outpatient. I felt this is reasonable. Up to the caretakers. Caretakers will call Agustin tomorrow and discuss further management. Medication Reconcilliation Current Medication List: was personally reviewed by me Blood Pressure Screening Patient's blood pressure: Elevated blood pressure Blood pressure disposition: Referred to PCP Consults Time Called: 1924 Consulting Physician: Dr. Tenzin STOREY Returned Call: 1932 I discussed the case with Dr. Tenzin STOREY. He recommends discharge with outpatient follow-up as this is likely an institutional bowel. He asks that I order a stool softener as well. Impression Primary Impression: Colon abnormality Additional Impression: Diarrhea Scribe Attestation The scribe's documentation has been prepared under my direction and personally reviewed by me in its entirety. I confirm that the note above accurately reflects all work, treatment, procedures, and medical decision making performed by me. Departure Information Dispostion Home / Self-Care Referrals Lora Carvalho DO (PCP) Forms HOME CARE DOCUMENTATION FORM, IMPORTANT VISIT INFORMATION Patient Instructions My [facility] Additional Instructions Please follow up with your Gastroenterology with in the next 24 hours. Any worsening of your symptoms, please return to the ED immediately. This includes any fevers greater than 100.4, abdominal pain, chest pain, shortness breath, persistent nausea, vomiting, unable to eat or drink, or any other concerning signs or symptoms from your standpoint. Please make sure that you call gastroenterology tomorrow morning for further instructions on bowel regimen. Problem Qualifiers Additional Impression: Diarrhea Diarrhea type: unspecified type Qualified Codes: R19.7 - Diarrhea, unspecified
== END 2017-08-20 20:32 | disposition home or self-care (01) ==
LOC: EDUNIT# 17:34 → C.EDC 17:39
DX: K59.9 Functional intestinal disorder, unspecified (principal); R19.7 Diarrhea, unspecified; F79 Unspecified intellectual disabilities; K21.9 Gastro-esophageal reflux disease without esophagitis; Z86.718 Personal history of other venous thrombosis and embolism; M81.0 Age-related osteoporosis without current pathological fracture; E03.9 Hypothyroidism, unspecified; G40.909 Epilepsy, unspecified, not intractable, without status epilepticus; J84.10 Pulmonary fibrosis, unspecified; Z96.649 Presence of unspecified artificial hip joint; Z82.49 Family history of ischemic heart disease and other diseases of the circulatory system; Z79.82 Long term (current) use of aspirin; Z79.899 Other long term (current) drug therapy

== ENCOUNTER → 2017-08-27 | Outpatient (CLI) | payer OTHER ==
[~2017-08-27] MED LIST changes: -LACT10SO17 PO; -LEVO1TAB33 PO; -SLWMEC PO
--- NOTE | 2017-08-27 13:18 | DIAGNOSTIC IMAGING REPORT ---
CHEST 2 VIEWS ROUTINE CLINICAL HISTORY: R05 [id number] COMPARISON STUDY: 07/17/2017 FINDINGS: The study is mildly limited from a technical standpoint. There is a left arm contracture which overlies left hemithorax. The cardiac and mediastinal contours remain stable. Underlying interstitial fibrotic changes remain similar. There is no acute parenchymal consolidation.[ IMPRESSION: Interstitial pulmonary fibrotic changes similar to the prior study. No evidence of superimposed lung consolidation Electronically signed by: Ivan Fam M.D. 08/27/2017 1:16 PM Dictated Date/Time: 08/27/2017 1:15 PM
== END | disposition home or self-care (01) ==
LOC: C.RAD1850 12:53
PROVIDERS: ATTEND Physician Assistant
DX: R05 Cough (principal)

== ENCOUNTER 2018-10-11 12:08 | Inpatient (IN) ==
[2018-10-11 13:18] LABS: Basophils # (auto) 0.03 K/uL (0-0.2); Basophils % (auto) 0.5 %; Eosinophils # (auto) 0.17 K/uL (0-0.5); Eosinophils % (auto) 2.7 %; Hemoglobin 12.5 g/dL (12.0-16.0); Immature Granulocytes # (auto) 0.01 K/uL (0.00-0.02); Immature Granulocytes % (auto) 0.2 %; Lymphocytes # (auto) 1.41 K/uL (1.2-3.4); Lymphocytes % (auto) 22.2 %; Mean Corpuscular Hgb Conc 32.9 g/dL (32-36); Mean Corpuscular Volume 92.2 fL (80-100); Mean Platelet Volume 9.6 fL (7.4-10.4); Monocytes # (auto) 0.64 K/uL (0.11-0.59); Monocytes % (auto) 10.1 %; Neutrophils % (auto) 64.3 %; Platelet Count 263 K/uL (130-400); RDW Coefficient of Variation 13.1 % (11.5-14.5); Red Blood Count 4.12 M/uL (4.2-5.4); White Blood Count 6.36 K/uL (4.8-10.8)
[2018-10-11 13:20] LABS: Appearance Urine Turbid (Clear); Bacteria Urine Automated 1+ (Negative); Bilirubin Urine Negative (Negative); Blood Urine 1+ (Negative); Color Urine Dark Yellow; Epithelial Cell Urine Auto >30 /lpf (0-5); Glucose Urine UA Negative (Negative); Ketones Urine Trace (Negative); Leukocyte Esterase Urine 3+ (Negative); Nitrite Urine Negative (Negative); Protein Urine 2+ (Negative); RBC Urine Automated 0-4 /hpf (0-4); Specific Gravity Urine 1.023 (1.000-1.030); Urobilinogen Urine Negative (Negative); WBC Urine Automated >30 /hpf (0-5)
[2018-10-11 13:39] LABS: Calcium Oxalate Crystals Urine Present (None Prsent)
[2018-10-11 13:40] LABS: Cast Urine Automated 0 /lpf (0-5)
[2018-10-11 13:40] LABS: Alanine Aminotransferase 30 U/L (12-78); Albumin Level 3.6 gm/dl (3.4-5.0); BUN Creatinine Ratio 25.9 (10-20); Blood Urea Nitrogen 25 mg/dl (7-18); Calcium 10.1 mg/dl (8.5-10.1); Carbon Dioxide 27 mmol/L (21-32); Chloride 99 mmol/L (98-107); Est GFR (African American) 66.3; Est GFR (Non-African American) 57.2; Glucose 102 mg/dl (70-99); Sodium 129 mmol/L (136-145)
[2018-10-11] MEDS ORDERED: cefTRIAXone SODIUM 1,000 MG/50 ML BAG IV STA (13:40)
[2018-10-11 13:53] LABS: Albumin Globulin Ratio 0.8 (0.9-2); Alkaline Phosphatase 126 U/L (45-117); Bilirubin,Total 0.5 mg/dl (0.2-1); Globulin 4.6 gm/dl (2.5-4.0); Total Protein 8.2 gm/dl (6.4-8.2); Troponin I < 0.015 ng/ml (0-0.045)
[2018-10-11 14:16] LABS: Potassium 4.1 mmol/L (3.5-5.1)
--- NOTE | 2018-10-11 15:04 | XRay Report ---
XR chest 1V portable CLINICAL HISTORY: Hypoxia COMPARISON STUDY: 07/17/2017 FINDINGS: The heart is borderline enlarged. There is aortic tortuosity. There is evidence for underly ing chronic lung disease. Asymmetric right greater than left interstitial opacities remain stable. Th ere is no superimposed parenchymal consolidation.[ IMPRESSION: 1. Stable findings 2. Stable asymmetric interstitial lung disease right greater than left. Electronically signed by: Ivan Fam M.D. 10/11/2018 3:03 PM
[2018-10-11] MEDS ORDERED: SODIUM CHLORIDE 0.9% 1000ML 1,000 ML IV STA (15:17)
--- NOTE | 2018-10-11 17:45 | Emergency Department Note ---
Entered by Nini Marsh acting as a scribe for Brandin Shanks MD ED Provider Note CHIEF COMPLAINT: Urinary symptoms. HISTORY OF PRESENT ILLNESS: The patient is a 73 year old female who presents to the Emergency Room with complaints of urinary symptoms. She was brought to the ED via EMS from [facility], where she resides. Per staff at [facility], she has not been acting like her normal self for the past 2 to 3 days. She has been more sluggish and lethargic than normal and her urine is dark in color. She has an indwelling Alvarado catheter in place. It was last changed some time this past week. The patient does have a history of prior UTIs and seizures. Staff at [facility] deny any recent trauma or falls. History is limited secondary to the patients intellectual disability. Pt denies LOC, headache, fevers, chills, diaphoresis, visual changes, neck pain, chest pain, breathing difficulties, nausea, vomiting, abdominal pain, back pain, melena, hematochezia, numbness, weakness, lymphadenopathy, rash, or other complaints. REVIEW OF SYSTEMS: See HPI for pertinent positives and negatives. A total of ten systems were reviewed and were otherwise negative. PMHx/PSHx: Seizure disorder. Intellectual disability. SOCIAL HISTORY: Patient lives in a half-way. PHYSICAL EXAM: GENERAL: Awake, alert, well-appearing, in no distress HENT: Normocephalic, atraumatic. Oropharynx unremarkable. EYES: Normal conjunctiva. Sclera non-icteric. Disconjugate gaze. NECK: Inspection normal. Non-tender. Supple. No nuchal rigidity. FROM. No masses. RESPIRATORY: Clear to auscultation. No wheezes. No rales. Normal respiratory effort. CARDIAC: Normal rate. Normal rhythm. No murmurs. No rubs. Extremities warm and well perfused. Pulses equal. No JVD. GI: Soft, non-distended. No tenderness to palpation. No rebound or guarding. No masses. RECTAL: Deferred. MUSCULOSKELETAL: Atraumatic. Chest examination reveals no tenderness. The back is symmetrical on inspection without obvious abnormality. There is no CVA tenderness to palpation. No joint edema. UPPER EXTREMITIES: Contractures in upper extremities but moves all extremities spontaneously. LOWER EXTREMITIES: Calves are equal size bilaterally and non-tender. Trace LE edema. No discoloration. NEURO: Altered sensorium. Not following commands, gives one word answer of "no" to questions. SKIN: No rash or jaundice noted. EMERGENCY DEPARTMENT COURSE: 1314: Past medical records reviewed. The patient was evaluated in room A2, and a complete history and physical examination were performed. 1610: I discussed the patients case with Mahsa Kim PA-C, [facility] Hospitalist. The patient will be further evaluated. Patient was reassessed and is stable. Caregiver updated. MEDICAL DECISION MAKING: Prior records/ancillary studies reviewed and summarized above. Nursing notes reviewed and agree them. Additional history obtained from the patient's caregiver. The patient's history was concerning for altered mental status. Differential diagnosis: Etiologies such as infection, hypoglycemia, electrolyte abnormalities, cardiac sources, intracerebral event, toxicologic, neurologic, as well as others were entertained. Physical examination: As above. ER treatment provided: IV Lock Normal saline hydration IV Rocephin On reassessment the patient was hemodynamically stable. Diagnostics interpretation by me: ECG: Normal The labs revealed an unremarkable CBC. Chemistry panel revealed hyponatremia is new. The patient's urinalysis is concerning for infection. Imaging studies: Chest x-ray shows chronic findings. No acute change. The patient appears to have hyponatremia and UTI. Given her current level of care she will benefit from time in the hospital. Consultation: A consultation was placed with the hospitalist. The case was discussed and diagnostics were reviewed. The patient was evaluated in the ER for further treatment. IMPRESSION: AMS. UTI. Hyponatremia. PLAN: Evaluation by hospitalist. The scribe's documentation has been prepared under my direction and personally reviewed by me in its entirety. I confirm that the note above accurately reflects all work, treatment, procedures, and medical decision making performed by me. Impression & Plan Altered mental status, UTI (urinary tract infection), Hyponatremia Past Med/Surg History Medical History Seizure disorder (Chronic) Intellectual disability (Chronic) History of DVT (deep vein thrombosis) (Chronic) "2002- right lower extremity, completed Coumadin therapy" On 01/30/15 10:26 Francine Mckeon wrote "2002- right lower extremity" Hypothyroidism (Chronic) Pulmonary fibrosis (Chronic) Alvarado catheter in place (Chronic) Colon abnormality Social History Preferred Language: Urdu Feels Safe at Home: Yes Smoking Status: Never smoker Results & Data Vital Signs Vital Signs - 24 hr 10/11/18 12:16 10/11/18 13:10 10/11/18 13:33 Temperature 36.5 C Temperature Source Oral Sepsis Recent Fever Within 48 Hours No Sepsis New/Unexplained Change in Mental Status Yes Sepsis Action Taken by Nursing No Action Required Pulse Rate 62 62 Pulse Rate [Left] 61 Pulse Rhythm [Left] Respiratory Rate 16 13 Respiratory Effort / Characteristics Spontaneous Non-Labored Spontaneous Blood Pressure 126/75 Blood Pressure [Left Arm] Blood Pressure Mean 92 Blood Pressure Mean [Left Arm] Blood Pressure Position Lying Blood Pressure Position [Left Arm] Pulse Oximetry 99 96 95 Oxygen Delivery Method Room Air Room Air Room Air Oxygen Flow Rate 10/11/18 14:02 10/11/18 14:16 10/11/18 14:18 Temperature Temperature Source Sepsis Recent Fever Within 48 Hours Sepsis New/Unexplained Change in Mental Status Sepsis Action Taken by Nursing Pulse Rate Pulse Rate [Left] 64 Pulse Rhythm [Left] Respiratory Rate 12 Respiratory Effort / Characteristics Non-Labored Blood Pressure Blood Pressure [Left Arm] Blood Pressure Mean Blood Pressure Mean [Left Arm] Blood Pressure Position Blood Pressure Position [Left Arm] Lying Pulse Oximetry 95 79 L 99 Oxygen Delivery Method Room Air Room Air Nasal Cannula Oxygen Flow Rate 2 10/11/18 14:36 10/11/18 16:30 Temperature Temperature Source Sepsis Recent Fever Within 48 Hours Sepsis New/Unexplained Change in Mental Status Sepsis Action Taken by Nursing Pulse Rate Pulse Rate [Left] 69 71 Pulse Rhythm [Left] Regular Respiratory Rate 16 16 Respiratory Effort / Characteristics Non-Labored Spontaneous Non-Labored Spontaneous Blood Pressure Blood Pressure [Left Arm] 186/84 H 155/113 H Blood Pressure Mean Blood Pressure Mean [Left Arm] 118 127 Blood Pressure Position Blood Pressure Position [Left Arm] Lying Lying Pulse Oximetry 100 100 Oxygen Delivery Method Room Air Nasal Cannula Oxygen Flow Rate 4 Home Medications Current Medication List: was personally reviewed by me Laboratory Data Attestation: I reviewed the patient's lab results. Result diagrams: 10/11/18 12:55 10/11/18 13:53 Lab Results 10/11/18 10/11/18 10/11/18 Range/Units 12:55 13:06 13:10 WBC 6.36 (4.8-10.8) K/uL RBC 4.12 L (4.2-5.4) M/uL Hgb 12.5 (12.0-16.0) g/dL Hct 38.0 (37-47) % MCV 92.2 (80-100) fL MCH 30.3 (25-34) pg MCHC 32.9 (32-36) g/dL RDW Std Deviation 44.0 (36.4-46.3) fL RDW Coeff of Db 13.1 (11.5-14.5) % Plt Count 263 (130-400) K/uL MPV 9.6 (7.4-10.4) fL Immature Gran % (Auto) 0.2 % Neut % (Auto) 64.3 % Lymph % (Auto) 22.2 % [place] % (Auto) 10.1 % Eos % (Auto) 2.7 % Baso % (Auto) 0.5 % Immature Gran # (Auto) 0.01 (0.00-0.02) K/uL Neut # (Auto) 4.10 (1.4-6.5) K/uL Lymph # (Auto) 1.41 (1.2-3.4) K/uL [place] # (Auto) 0.64 H (0.11-0.59) K/uL Eos # (Auto) 0.17 (0-0.5) K/uL Baso # (Auto) 0.03 (0-0.2) K/uL Sodium 129 L (136-145) mmol/L Potassium (3.5-5.1) mmol/L Chloride 99 (98-107) mmol/L Carbon Dioxide 27 (21-32) mmol/L Anion Gap 3.0 (3-11) BUN 25 H (7-18) mg/dl Creatinine 0.98 (0.6-1.2) mg/dl Est Cr Clr Drug Dosing Not Reportable Est GFR ( Amer) 66.3 Est GFR (Non-Af Amer) 57.2 BUN/Creatinine Ratio 25.9 H (10-20) Glucose 102 H (70-99) mg/dl Calcium 10.1 (8.5-10.1) mg/dl Total Bilirubin 0.5 (0.2-1) mg/dl AST (15-37) U/L ALT 30 (12-78) U/L Alkaline Phosphatase 126 H (45-117) U/L Troponin I < 0.015 (0-0.045) ng/ml Total Protein 8.2 (6.4-8.2) gm/dl Albumin 3.6 (3.4-5.0) gm/dl Globulin 4.6 H (2.5-4.0) gm/dl Albumin/Globulin Ratio 0.8 L (0.9-2) Lipase 217 (73-393) U/L Urine Color Dark Yellow Urine Appearance Turbid H (Clear) Urine pH 5.0 (4.5-7.5) Ur Specific [place] 1.023 (1.000-1.030) Urine Protein 2+ H (Negative) Urine Glucose (UA) Negative (Negative) Urine Ketones Trace H (Negative) Urine Blood 1+ H (Negative) Urine Nitrite Negative (Negative) Urine Bilirubin Negative (Negative) Urine Urobilinogen Negative (Negative) Ur Leukocyte Esterase 3+ H (Negative) Urine WBC (Auto) >30 H (0-5) /hpf Urine RBC (Auto) 0-4 (0-4) /hpf U Hyaline Cast (Auto) 0 (0-5) /lpf U Epithel Cells (Auto) >30 H (0-5) /lpf Urine Bacteria (Auto) 1+ H (Negative) Urine Crystals Not Reportable Calcium Oxalate Crystal Present H (None Prsent) Urine Yeast Budding H (None Prsent) 10/11/18 Range/Units 13:53 WBC (4.8-10.8) K/uL RBC (4.2-5.4) M/uL Hgb (12.0-16.0) g/dL Hct (37-47) % MCV (80-100) fL MCH (25-34) pg MCHC (32-36) g/dL RDW Std Deviation (36.4-46.3) fL RDW Coeff of Db (11.5-14.5) % Plt Count (130-400) K/uL MPV (7.4-10.4) fL Immature Gran % (Auto) % Neut % (Auto) % Lymph % (Auto) % [place] % (Auto) % Eos % (Auto) % Baso % (Auto) % Immature Gran # (Auto) (0.00-0.02) K/uL Neut # (Auto) (1.4-6.5) K/uL Lymph # (Auto) (1.2-3.4) K/uL [place] # (Auto) (0.11-0.59) K/uL Eos # (Auto) (0-0.5) K/uL Baso # (Auto) (0-0.2) K/uL Sodium (136-145) mmol/L Potassium 4.1 (3.5-5.1) mmol/L Chloride (98-107) mmol/L Carbon Dioxide (21-32) mmol/L Anion Gap (3-11) BUN (7-18) mg/dl Creatinine (0.6-1.2) mg/dl Est Cr Clr Drug Dosing Est GFR ( Amer) Est GFR (Non-Af Amer) BUN/Creatinine Ratio (10-20) Glucose (70-99) mg/dl Calcium (8.5-10.1) mg/dl Total Bilirubin (0.2-1) mg/dl AST 20 (15-37) U/L ALT (12-78) U/L Alkaline Phosphatase (45-117) U/L Troponin I (0-0.045) ng/ml Total Protein (6.4-8.2) gm/dl Albumin (3.4-5.0) gm/dl Globulin (2.5-4.0) gm/dl Albumin/Globulin Ratio (0.9-2) Lipase (73-393) U/L Urine Color Urine Appearance (Clear) Urine pH (4.5-7.5) Ur Specific [place] (1.000-1.030) Urine Protein (Negative) Urine Glucose (UA) (Negative) Urine Ketones (Negative) Urine Blood (Negative) Urine Nitrite (Negative) Urine Bilirubin (Negative) Urine Urobilinogen (Negative) Ur Leukocyte Esterase (Negative) Urine WBC (Auto) (0-5) /hpf Urine RBC (Auto) (0-4) /hpf U Hyaline Cast (Auto) (0-5) /lpf U Epithel Cells (Auto) (0-5) /lpf Urine Bacteria (Auto) (Negative) Urine Crystals Calcium Oxalate Crystal (None Prsent) Urine Yeast (None Prsent) Administered Medications Sodium Chloride (Nss 1000ml) 1,000 mls @ 125 mls/hr IV .Q8H STA Stop: 10/11/18 23:16 Last Admin: 10/11/18 15:31 Dose: 125 mls/hr Documented by: [id number] Discontinued Medications Ceftriaxone Sodium (Rocephin) 1,000 mg in 50 mls @ 100 mls/hr IV NOW STA Stop: 10/11/18 14:09 Last Infusion: 10/11/18 14:36 Dose: 0 mls/hr Documented by: [id number] Admin: 10/11/18 14:05 Dose: 100 mls/hr Documented by: [id number] Imaging Data Radiologist's Impression: Radiology results as stated below per my review and the radiologist's interpretation: XR chest 1V portable CLINICAL HISTORY: Hypoxia COMPARISON STUDY: 07/17/2017 FINDINGS: The heart is borderline enlarged. There is aortic tortuosity. There is evidence for underlying chronic lung disease. Asymmetric right greater than left interstitial opacities remain stable. There is no superimposed parenchymal consolidation. IMPRESSION: 1. Stable findings 2. Stable asymmetric interstitial lung disease right greater than left. Electronically signed by: Ivan Fam M.D. 10/11/2018 3:03 PM ECG Data Attestation: I personally reviewed and interpreted this ECG as follows: Indication: weakness Rate (beats per minute): 67 Rhythm: normal sinus Findings: no PAC, no PVC, no ST depression and no ST elevation Blood Pressure Blood Pressure Findings: Elevated blood pressure Blood Pressure Disposition: further management by hospitalist Discharge Plan Visit Data Chief Complaint: Urinary Symptoms Stated Complaint: ams ED Provider: Brandin Shanks Discharge Problem: Altered mental status, UTI (urinary tract infection), Hyponatremia Patient Disposition: Being Evaluated by Hospitalist Forms Stand Alone Forms: My [facility] [employer] Prescriptions Prescriptions: No Action multivitamin [Multiple Vitamins] Tablet 1 tab PO DAILY Qty: 0 RF: 0 acetaminophen 325 mg Tablet 650 mg PO Q4 PRN (Reason: Pain) Qty: 0 RF: 0 lamotrigine [Lamictal] 25 mg Tablet 50 mg PO BID Qty: 0 RF: 0 carbamazepine [Carbatrol] 300 mg Capsule, Er Multiphase 12 Hr 300 mg PO BID Qty: 0 RF: 0 calcium carbonate [Oyster Shell Calcium 500] 500 mg calcium (1,250 mg) Tablet 1 tab PO HS Qty: 0 RF: 0 Aloe [place] 43 % Ointment 1 applic TOPICAL BID Qty: 0 RF: 0 levothyroxine 100 mcg Tablet 100 mcg PO DAILY Qty: 0 RF: 0 hydrocortisone [Anusol-HC] 2.5 % Cream With Perineal Applicator 1 applic ID BID PRN (Reason: hemorrhoids) 7 Days Qty: 30 RF: 0 methenamine hippurate 1 gram Tablet 1 g PO BID Qty: 0 RF: 0 aspirin 81 mg Tablet,Chewable 81 mg PO DAILY Qty: 0 RF: 0 metronidazole [Metrogel] 1 % Gel 1 applic TOPICAL DAILY Qty: 0 RF: 0 Prolia 60 mg/mL Syringe 60 mg subcut UD Qty: 0 RF: 0 Robitussin Cough-Chest Mariano DM 5-100 mg/5 mL Liquid 10 ml PO Q4H PRN (Reason: Cold Symptoms) Qty: 0 RF: 0 lamotrigine [Lamictal] 150 mg Tablet 300 mg PO BID RF: 0 polyethylene glycol 3350 [Miralax] 17 gram Powder In Packet 17 g PO BID RF: 0 linaclotide 290 mcg Capsule 290 mcg PO DAILY RF: 0 levofloxacin [Levaquin] 750 mg Tablet 750 mg PO BID RF: 0 fluticasone propionate 50 mcg/actuation [place],Suspension 2 spray INTRANASAL DAILY RF: 0 Referrals Referrals: Lora Carvalho, DO [Primary Care Provider] - The scribe's documentation has been prepared under my direction and personally reviewed by me in its entirety. I confirm that the note above accurately reflects all work, treatment, procedures, and medical decision making performed by me.
[2018-10-11] MEDS ORDERED: ONDANSETRON INJ 2 MG/ML 2 ML VIAL IV PRN (18:48)
[2018-10-11] MEDS ORDERED: ACETAMINOPHEN 325 MG TAB PO PRN (19:14)
--- NOTE | 2018-10-11 19:23 | History & Physical Report ---
Date of Service October 11, 2018 Assessment & Plan (1) Altered mental status: Altered mental status, uncertain etiology. UA shows leukocyte esterase, many WBC's, bacteria. Has Alvarado cath, so significance of UA uncertain- (colonization vs infection). Hyponatremia and / or dehydration could be contributing. GI issues as discussed below. (2) Dehydration: BUN 25, creat 0.98. IV fluids. Follow. (3) Hyponatremia: Serum sodium 129. Mechanism of hyponatremia uncertain. Possible SIADH. Check U osm. Follow. (4) Abdominal distention: Abdominal films demonstrated dilated loops of bowel with air fluid levels. Consider obstruction, ileus, pseudo-obstruction. CT did not show any apparent obstruction or free air. Consult General Surgery and GI. Keep NPO for now. (5) Pulmonary fibrosis: Radiographically stable. Supplemental O2 as needed. (6) Alvarado catheter in place: Chronic Alvarado catheter for urinary retention. Catheter changed about 2 wks ago. Routine Alvarado care. (7) Seizure disorder: Continue usual anticonvulsants. (8) Hypothyroidism: Check TSH. Continue levothyroxine. (9) DVT prophylaxis: SQ enoxaparin. (10) Discharge planning issues: Anticipated return to [facility]. Family Medicine follow-up with Dr. Carvalho. Brother Barry and [id number] Joyce given update by phone. [facility] supervisor photoengraving given update by phone. History of Present Illness Chief Complaint: not feeling well Primary Care Provider: Lora Carvalho, 73-year-old female followed by Dr. Carvalho for Family Medicine. History of cognitive disability, seizure disorder, and other problems as noted. Dependent for most of her care. Bed / chair bound. Able to feed herself with her right hand. Minimally verbal. Lives in [facility] [address] in [place]. Last hospitalized at [facility] in June 2017. Problems during that hospital stay included possible sigmoid volvulus and fecal impaction. General Surgery and GI were consulted. Managed conservatively with enemas and laxatives with improvement. This morning staff noted that she seemed to be tired and not herself. She was not cooperative with morning routine, just wanted to be left alone. No apparent fever. No cough, nausea, vomiting. No change of bowel habits. Has chronic Alvarado catheter for urinary retention. No reported foul-smelling urine or gross hematuria. No apparent seizures. Patient unable to provide any history because of her cognitive disability and current illness. Allergies Allergy/AdvReac Type Severity Reaction Status Date / Time No Known Allergies Allergy Unknown Verified 06/11/18 08:17 Home Medications Home Medications Medication Instructions Recorded Confirmed Type multivitamin [Multiple Vitamins] 1 tab PO DAILY #0 02/27/11 10/11/18 History acetaminophen 650 mg PO Q4 PRN #0 09/09/11 10/11/18 History carbamazepine [Carbatrol] 300 mg PO BID #0 06/29/12 10/11/18 History calcium carbonate [Oyster Shell 1 tab PO HS #0 11/29/12 10/11/18 History Calcium 500] white petrolatum [Aloe [place]] 1 applic TOPICAL BID #0 11/11/14 10/11/18 History aspirin 81 mg PO DAILY #0 07/17/17 10/11/18 History denosumab [Prolia] 60 mg SUBCUT UD #0 07/17/17 10/11/18 History dextromethorphan-guaifenesin 10 ml PO Q4H PRN #0 07/17/17 10/11/18 History [Robitussin Cough-Chest Mariano DM] hydrocortisone [Anusol-HC] 1 applic [place] BID PRN 7 Days #30 g 07/17/17 10/11/18 History levothyroxine 100 mcg PO DAILY #0 07/17/17 10/11/18 History methenamine hippurate 1 g PO BID #0 07/17/17 10/11/18 History metronidazole [Metrogel] 1 applic TOPICAL DAILY #0 07/17/17 10/11/18 History lamotrigine [Lamictal] 300 mg PO BID 06/11/18 10/11/18 History linaclotide 290 mcg PO DAILY 06/11/18 10/11/18 History polyethylene glycol 3350 [Miralax] 17 g PO BID 06/11/18 10/11/18 History fluticasone propionate 2 spray INTRANASAL DAILY 10/11/18 10/11/18 History lamotrigine 50 mg PO BID 10/11/18 10/11/18 History levetiracetam 750 mg PO BID 10/11/18 10/11/18 History Past Med/Surg History Medical History Seizure disorder (Chronic) Intellectual disability (Chronic) History of DVT (deep vein thrombosis) (Chronic) "2002- right lower extremity, completed Coumadin therapy" On 01/30/15 10:26 Francine Mckeon wrote "2002- right lower extremity" Hypothyroidism (Chronic) Pulmonary fibrosis (Chronic) Alvarado catheter in place (Chronic) Colon abnormality Family History Mother Hypertension Father Heart disease Grandmother Cancer Social History Preferred Language: Arabic Communication Ability: Impaired Radio Technician Required: No Beliefs That Will Affect Care: None Current Living Situation: Boarding Home Feels Safe at Home: Yes Safety Concerns: Feels Safe At This Time Smoking Status: Never smoker Hx Alcohol Use: No Hx Substance Use: No Review of Systems Review of Systems: Unobtainable due to cognitive status Physical Exam Constitutional: WD/WN, vitals as above no acute distress Eyes: PERRL, conjunctivae normal, anicteric sclerae + EOM movement deficit (dysconjugate gaze) ENMT: external ear and nose normal, oropharynx normal Neck: trachea midline, no thyromegaly Respiratory: normal respiratory effort, lungs clear to auscultation Cardiovascular: Rate/Rhythm: regular rate Heart Sounds: no gallop Vessels: no JVD Extremities: normal capillary refill and + edema (trace); no calf tenderness Gastrointestinal (Abdomen): Inspection/Auscultation: + abdomen distended (slightly); + abnormal bowel sounds (quiet) Percussion/Palpation: + abdomen tender (diffuse, mild) and abdomen soft; no guarding and abdomen not rigid Musculoskeletal: Head/Neck/Chest: neck supple Extremities: + upper extremity abnormal to inspection (palsy & contractures LUE); no cyanosis and no clubbing Skin: no rashes, warm and dry Neurologic: dysconjugate gaze pupils reactive dysarthric LUE weakness with flexion contractures Psychiatric: Orientation: + not alert (somewhat somnolent) and + not oriented x 3 Lymphatic: no cervical lymphadenopathy Results & Data Vital Signs (Past 12 Hours) Vital Signs Temp Pulse Pulse Resp BP BP Pulse Ox 10/11/18 18:03 76 16 165/71 H 100 10/11/18 16:30 71 16 155/113 H 100 10/11/18 14:36 69 16 186/84 H 100 10/11/18 14:18 99 10/11/18 14:16 79 L 10/11/18 14:02 64 12 95 10/11/18 13:33 61 13 95 10/11/18 13:10 62 96 10/11/18 12:16 36.5 C 62 16 126/75 99 Laboratory Results Laboratory Results - last 24 hr 10/11/18 10/11/18 10/11/18 12:55 13:06 13:10 WBC 6.36 RBC 4.12 L Hgb 12.5 Hct 38.0 MCV 92.2 MCH 30.3 MCHC 32.9 RDW Std Deviation 44.0 RDW Coeff of Db 13.1 Plt Count 263 MPV 9.6 Immature Gran % (Auto) 0.2 Neut % (Auto) 64.3 Lymph % (Auto) 22.2 [place] % (Auto) 10.1 Eos % (Auto) 2.7 Baso % (Auto) 0.5 Immature Gran # (Auto) 0.01 Neut # (Auto) 4.10 Lymph # (Auto) 1.41 [place] # (Auto) 0.64 H Eos # (Auto) 0.17 Baso # (Auto) 0.03 Sodium 129 L Potassium Chloride 99 Carbon Dioxide 27 Anion Gap 3.0 BUN 25 H Creatinine 0.98 Est Cr Clr Drug Dosing Not Reportable Est GFR ( Amer) 66.3 Est GFR (Non-Af Amer) 57.2 BUN/Creatinine Ratio 25.9 H Glucose 102 H Calcium 10.1 Total Bilirubin 0.5 AST ALT 30 Alkaline Phosphatase 126 H Troponin I < 0.015 Total Protein 8.2 Albumin 3.6 Globulin 4.6 H Albumin/Globulin Ratio 0.8 L Lipase 217 Urine Color Dark Yellow Urine Appearance Turbid H Urine pH 5.0 Ur Specific [place] 1.023 Urine Protein 2+ H Urine Glucose (UA) Negative Urine Ketones Trace H Urine Blood 1+ H Urine Nitrite Negative Urine Bilirubin Negative Urine Urobilinogen Negative Ur Leukocyte Esterase 3+ H Urine WBC (Auto) >30 H Urine RBC (Auto) 0-4 U Hyaline Cast (Auto) 0 U Epithel Cells (Auto) >30 H Urine Bacteria (Auto) 1+ H Urine Crystals Not Reportable Calcium Oxalate Crystal Present H Urine Yeast Budding H 10/11/18 13:53 WBC RBC Hgb Hct MCV MCH MCHC RDW Std Deviation RDW Coeff of Bd Plt Count MPV Immature Gran % (Auto) Neut % (Auto) Lymph % (Auto) [place] % (Auto) Eos % (Auto) Baso % (Auto) Immature Gran # (Auto) Neut # (Auto) Lymph # (Auto) [place] # (Auto) Eos # (Auto) Baso # (Auto) Sodium Potassium 4.1 Chloride Carbon Dioxide Anion Gap BUN Creatinine Est Cr Clr Drug Dosing Est GFR ( Amer) Est GFR (Non-Af Amer) BUN/Creatinine Ratio Glucose Calcium Total Bilirubin AST 20 ALT Alkaline Phosphatase Troponin I Total Protein Albumin Globulin Albumin/Globulin Ratio Lipase Urine Color Urine Appearance Urine pH Ur Specific [place] Urine Protein Urine Glucose (UA) Urine Ketones Urine Blood Urine Nitrite Urine Bilirubin Urine Urobilinogen Ur Leukocyte Esterase Urine WBC (Auto) Urine RBC (Auto) U Hyaline Cast (Auto) U Epithel Cells (Auto) Urine Bacteria (Auto) Urine Crystals Calcium Oxalate Crystal Urine Yeast Diagnostic Findings PORT CXR IMPRESSION: 1. Stable findings 2. Stable asymmetric interstitial lung disease right greater than left. Electronically signed by: Ivan Fam M.D. 10/11/2018 3:03 PM ABDOMINAL X-RAY FINDINGS: Supine and decubitus views of the abdomen are provided for interpretation. There is gaseous distention of the colon. This extends down to the level of the sigmoid. The decubitus view reveals multiple air-fluid levels. There is no free air. Interstitial fibrotic changes are present within the chest. Multiple bladder calculi are suspected. IMPRESSION: 1. Gaseous distention of the bowel with multiple air-fluid levels. 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 2. Multiple bladder calculi 3. No evidence of free air Electronically signed by: Ivan Fam M.D. 10/11/2018 8:[address] ABDOMEN AND PELVIS IMPRESSION: 1. Mild colonic dilatation with air-fluid levels, down to the level of a stool- filled rectum. Fecal impaction must be considered. No obstructing lesions are visualized 2. Rectal wall thickening. Again this could indicate a proctitis/stercoral colitis. 3. Multiple bladder calculi 4. Normal appendix 5. No renal or ureteral calculi identified Electronically signed by: Ivan Fam M.D. 10/11/2018 10:25 PM ECG Additional Comments: EKG performed at 1258 reviewed and demonstrated NSR at 67 / min, baseline artifact, no acute changes. Code Status & VTE Plan Code Status full code VTE Prophylaxis Plan VTE Prophylaxis will be ordered: Yes
--- NOTE | 2018-10-11 20:30 | XRay Report ---
XR abdomen min 2V CLINICAL HISTORY: abdominal pain COMPARISON STUDY: 07/19/2017 FINDINGS: Supine and decubitus views of the abdomen are provided for interpretation. There is gaseous distention of the colon. This extends down to the level of the sigmoid. The decubitus view reveals m ultiple air-fluid levels. There is no free air. Interstitial fibrotic changes are present within the chest. Multiple bladder calculi are suspected. IMPRESSION: 1. Gaseous distention of the bowel with multiple air-fluid levels. 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 2. Multiple bladder calculi 3. No evidence of free air Electronically signed by: Ivan Fam M.D. 10/11/2018 8:28 PM
[2018-10-11] MEDS: D5NSS + 20MEQ KCL 20 MEQ/1,000 ML BAG IV SCH (20:37)
--- NOTE | 2018-10-11 22:27 | CT Scan Report ---
CT SCAN OF THE ABDOMEN AND PELVIS WITHOUT CONTRAST CLINICAL HISTORY: Abdominal pain. Dilated loops on x-ray. COMPARISON STUDY: July 2017 TECHNIQUE: CT scan of the abdomen and pelvis was performed from the lung bases to the proximal femurs . Images are reviewed in the axial, sagittal, and coronal planes. IV contrast was not administered fo r this examination. A dose lowering technique was utilized adhering to the principles of ALARA. CT DOSE: 508.05 mGy.cm FINDINGS: The study is limited from a technical standpoint. There is artifact from the patient's arms as she wa s unable to raise them for the scan. In addition the study was performed without intravenous or oral contrast. Lower chest: There are chronic interstitial right lung opacities similar to the prior study. Liver: The unenhanced liver is normal in size, contour, and attenuation. There is no intrahepatic luz iary ductal dilatation. Gallbladder: Unremarkable. Spleen: Normal in size and attenuation. Pancreas: Unremarkable. Adrenal glands: Unremarkable. Kidneys: No renal calculi are visualized. There is no hydronephrosis. Bowel: There is a large amount of stool within the rectal vault. There is mild rectal wall thickening . There is associated colonic distention. The appendix is visualized appears normal. There is no acut e diverticulitis. Peritoneum: There is no intraperitoneal free air or abdominal ascites. Vasculature: The abdominal aorta is normal in course and caliber. Adenopathy: None. Pelvic viscera: Evaluation the pelvis is limited due to artifact from right hip arthroplasty. Multipl e bladder calculi are visualized. There is indwelling Alvarado catheter. The uterus appears surgically a bsent. Skeletal structures: T11-T12 and L2 vertebral body compression deformities are evident. IMPRESSION: 1. Mild colonic dilatation with air-fluid levels, down to the level of a stool-filled rectum. Fecal i mpaction must be considered. No obstructing lesions are visualized 2. Rectal wall thickening. Again this could indicate a proctitis/stercoral colitis. 3. Multiple bladder calculi 4. Normal appendix 5. No renal or ureteral calculi identified Electronically signed by: Ivan Fam M.D. 10/11/2018 10:25 PM
--- NOTE | 2018-10-11 23:06 | Surgery Consultation ---
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 She also has a lot of stool in the rectum. Would recommend enemas to try to clear that. Dulcolax suppositories may be of help as well. There is no evidence of peritonitis at the present time. There is no evidence for immediate surgical intervention. Present on Admission?: Yes History of Present Illness Reason for Consultation: Abdominal distention Requesting Physician: Brandin Anglin MD Attending Physician: Brandin Anglin MD History of Present Illness I have been asked by Dr. Anglin to see this 73-year-old female. The patient was not able to relay history and so the history was obtained from the chart. She was brought to the emergency room when her caretakers noted blood in her Alvarado catheter. She has a Alvarado chronically. Upon admission she was noted to have a mildly distended abdomen and an abdominal x-ray noted dilated colon with air- fluid levels. There was no indication of abdominal pain although her caretakers apparently noted that she was more sleepy. Allergies Allergy/AdvReac Type Severity Reaction Status Date / Time No Known Allergies Allergy Unknown Verified 06/11/18 08:17 Home Medications Home Medications Medication Instructions Recorded Confirmed Type multivitamin [Multiple Vitamins] 1 tab PO DAILY #0 02/27/11 10/11/18 History acetaminophen 650 mg PO Q4 PRN #0 09/09/11 10/11/18 History carbamazepine [Carbatrol] 300 mg PO BID #0 06/29/12 10/11/18 History calcium carbonate [Oyster Shell 1 tab PO HS #0 11/29/12 10/11/18 History Calcium 500] white petrolatum [Aloe [place]] 1 applic TOPICAL BID #0 11/11/14 10/11/18 History aspirin 81 mg PO DAILY #0 07/17/17 10/11/18 History denosumab [Prolia] 60 mg SUBCUT UD #0 07/17/17 10/11/18 History dextromethorphan-guaifenesin 10 ml PO Q4H PRN #0 07/17/17 10/11/18 History [Robitussin Cough-Chest Mariano DM] hydrocortisone [Anusol-HC] 1 applic [place] BID PRN 7 Days #30 g 07/17/17 10/11/18 History levothyroxine 100 mcg PO DAILY #0 07/17/17 10/11/18 History methenamine hippurate 1 g PO BID #0 07/17/17 10/11/18 History metronidazole [Metrogel] 1 applic TOPICAL DAILY #0 07/17/17 10/11/18 History lamotrigine [Lamictal] 300 mg PO BID 06/11/18 10/11/18 History linaclotide 290 mcg PO DAILY 06/11/18 10/11/18 History polyethylene glycol 3350 [Miralax] 17 g PO BID 06/11/18 10/11/18 History fluticasone propionate 2 spray INTRANASAL DAILY 10/11/18 10/11/18 History lamotrigine 50 mg PO BID 10/11/18 10/11/18 History levetiracetam 750 mg PO BID 10/11/18 10/11/18 History Patient History Medical History Seizure disorder (Chronic) Intellectual disability (Chronic) History of DVT (deep vein thrombosis) (Chronic) "2002- right lower extremity, completed Coumadin therapy" On 01/30/15 10:26 Francine Mckeon wrote "2002- right lower extremity" Hypothyroidism (Chronic) Pulmonary fibrosis (Chronic) Alvarado catheter in place (Chronic) Colon abnormality Social History Preferred Language: Hungarian Communication Ability: Effective Therapist Speech Required: No Beliefs That Will Affect Care: None Current Living Situation: Boarding Home Feels Safe at Home: Yes Safety Concerns: Feels Safe At This Time Smoking Status: Never smoker Hx Alcohol Use: No Hx Substance Use: No Review of Systems Review of Systems: Not obtainable Physical Exam Constitutional: no acute distress Patient was lying in bed and appeared comfortable Gastrointestinal (Abdomen): Inspection/Auscultation: + abdomen distended (Moderate) and normal bowel sounds Percussion/Palpation: abdomen soft; abdomen nontender Results & Data Vital Signs (Past 12 Hours) Vital Signs Temp Pulse Pulse Resp BP BP Pulse Ox 10/11/18 18:03 76 16 165/71 H 100 10/11/18 16:30 71 16 155/113 H 100 10/11/18 14:36 69 16 186/84 H 100 10/11/18 14:18 99 10/11/18 14:16 79 L 10/11/18 14:02 64 12 95 10/11/18 13:33 61 13 95 10/11/18 13:10 62 96 10/11/18 12:16 36.5 C 62 16 126/75 99 Laboratory Results 10/11/18 10/11/18 10/11/18 Range/Units 13:53 13:10 13:06 WBC (4.8-10.8) K/uL RBC (4.2-5.4) M/uL Hgb (12.0-16.0) g/dL Hct (37-47) % MCV (80-100) fL MCH (25-34) pg MCHC (32-36) g/dL RDW Std Deviation (36.4-46.3) fL RDW Coeff of Db (11.5-14.5) % Plt Count (130-400) K/uL MPV (7.4-10.4) fL Immature Gran % (Auto) % Neut % (Auto) % Lymph % (Auto) % [place] % (Auto) % Eos % (Auto) % Baso % (Auto) % Immature Gran # (Auto) (0.00-0.02) K/uL Neut # (Auto) (1.4-6.5) K/uL Lymph # (Auto) (1.2-3.4) K/uL [place] # (Auto) (0.11-0.59) K/uL Eos # (Auto) (0-0.5) K/uL Baso # (Auto) (0-0.2) K/uL Sodium 129 L (136-145) mmol/L Potassium 4.1 (3.5-5.1) mmol/L Chloride 99 (98-107) mmol/L Carbon Dioxide 27 (21-32) mmol/L Anion Gap 3.0 (3-11) BUN 25 H (7-18) mg/dl Creatinine 0.98 (0.6-1.2) mg/dl Est Cr Clr Drug Dosing Not Reportable Est GFR ( Amer) 66.3 Est GFR (Non-Af Amer) 57.2 BUN/Creatinine Ratio 25.9 H (10-20) Glucose 102 H (70-99) mg/dl Calcium 10.1 (8.5-10.1) mg/dl Total Bilirubin 0.5 (0.2-1) mg/dl AST 20 (15-37) U/L ALT 30 (12-78) U/L Alkaline Phosphatase 126 H (45-117) U/L Troponin I < 0.015 (0-0.045) ng/ml Total Protein 8.2 (6.4-8.2) gm/dl Albumin 3.6 (3.4-5.0) gm/dl Globulin 4.6 H (2.5-4.0) gm/dl Albumin/Globulin Ratio 0.8 L (0.9-2) Lipase 217 (73-393) U/L Urine Color Dark Yellow Urine Appearance Turbid H (Clear) Urine pH 5.0 (4.5-7.5) Ur Specific [place] 1.023 (1.000-1.030) Urine Protein 2+ H (Negative) Urine Glucose (UA) Negative (Negative) Urine Ketones Trace H (Negative) Urine Blood 1+ H (Negative) Urine Nitrite Negative (Negative) Urine Bilirubin Negative (Negative) Urine Urobilinogen Negative (Negative) Ur Leukocyte Esterase 3+ H (Negative) Urine WBC (Auto) >30 H (0-5) /hpf Urine RBC (Auto) 0-4 (0-4) /hpf U Hyaline Cast (Auto) 0 (0-5) /lpf U Epithel Cells (Auto) >30 H (0-5) /lpf Urine Bacteria (Auto) 1+ H (Negative) Urine Crystals Not Reportable Calcium Oxalate Crystal Present H (None Prsent) Urine Yeast Budding H (None Prsent) 10/11/18 Range/Units 12:55 WBC 6.36 (4.8-10.8) K/uL RBC 4.12 L (4.2-5.4) M/uL Hgb 12.5 (12.0-16.0) g/dL Hct 38.0 (37-47) % MCV 92.2 (80-100) fL MCH 30.3 (25-34) pg MCHC 32.9 (32-36) g/dL RDW Std Deviation 44.0 (36.4-46.3) fL RDW Coeff of Db 13.1 (11.5-14.5) % Plt Count 263 (130-400) K/uL MPV 9.6 (7.4-10.4) fL Immature Gran % (Auto) 0.2 % Neut % (Auto) 64.3 % Lymph % (Auto) 22.2 % [place] % (Auto) 10.1 % Eos % (Auto) 2.7 % Baso % (Auto) 0.5 % Immature Gran # (Auto) 0.01 (0.00-0.02) K/uL Neut # (Auto) 4.10 (1.4-6.5) K/uL Lymph # (Auto) 1.41 (1.2-3.4) K/uL [place] # (Auto) 0.64 H (0.11-0.59) K/uL Eos # (Auto) 0.17 (0-0.5) K/uL Baso # (Auto) 0.03 (0-0.2) K/uL Sodium (136-145) mmol/L Potassium (3.5-5.1) mmol/L Chloride (98-107) mmol/L Carbon Dioxide (21-32) mmol/L Anion Gap (3-11) BUN (7-18) mg/dl Creatinine (0.6-1.2) mg/dl Est Cr Clr Drug Dosing Est GFR ( Amer) Est GFR (Non-Af Amer) BUN/Creatinine Ratio (10-20) Glucose (70-99) mg/dl Calcium (8.5-10.1) mg/dl Total Bilirubin (0.2-1) mg/dl AST (15-37) U/L ALT (12-78) U/L Alkaline Phosphatase (45-117) U/L Troponin I (0-0.045) ng/ml Total Protein (6.4-8.2) gm/dl Albumin (3.4-5.0) gm/dl Globulin (2.5-4.0) gm/dl Albumin/Globulin Ratio (0.9-2) Lipase (73-393) U/L Urine Color Urine Appearance (Clear) Urine pH (4.5-7.5) Ur Specific [place] (1.000-1.030) Urine Protein (Negative) Urine Glucose (UA) (Negative) Urine Ketones (Negative) Urine Blood (Negative) Urine Nitrite (Negative) Urine Bilirubin (Negative) Urine Urobilinogen (Negative) Ur Leukocyte Esterase (Negative) Urine WBC (Auto) (0-5) /hpf Urine RBC (Auto) (0-4) /hpf U Hyaline Cast (Auto) (0-5) /lpf U Epithel Cells (Auto) (0-5) /lpf Urine Bacteria (Auto) (Negative) Urine Crystals Calcium Oxalate Crystal (None Prsent) Urine Yeast (None Prsent) Diagnostic Findings XR abdomen min 2V CLINICAL HISTORY: abdominal pain COMPARISON STUDY: 07/19/2017 FINDINGS: Supine and decubitus views of the abdomen are provided for interpretation. There is gaseous distention of the colon. This extends down to the level of the sigmoid. The decubitus view reveals multiple air-fluid levels. There is no free air. Interstitial fibrotic changes are present within the chest. Multiple bladder calculi are suspected. IMPRESSION: 1. Gaseous distention of the bowel with multiple air-fluid levels. The findings are likely secondary to a colonic ileus or Coy's syndrome. 2. Multiple bladder calculi 3. No evidence of free air CT SCAN OF THE ABDOMEN AND PELVIS WITHOUT CONTRAST CLINICAL HISTORY: Abdominal pain. Dilated loops on x-ray. COMPARISON STUDY: July 2017 TECHNIQUE: CT scan of the abdomen and pelvis was performed from the lung bases to the proximal femurs. Images are reviewed in the axial, sagittal, and coronal planes. IV contrast was not administered for this examination. A dose lowering technique was utilized adhering to the principles of ALARA. CT DOSE: 508.05 mGy.cm FINDINGS: The study is limited from a technical standpoint. There is artifact from the patient's arms as she was unable to raise them for the scan. In addition the study was performed without intravenous or oral contrast. Lower chest: There are chronic interstitial right lung opacities similar to the prior study. Liver: The unenhanced liver is normal in size, contour, and attenuation. There is no intrahepatic biliary ductal dilatation. Gallbladder: Unremarkable. Spleen: Normal in size and attenuation. Pancreas: Unremarkable. Adrenal glands: Unremarkable. Kidneys: No renal calculi are visualized. There is no hydronephrosis. Bowel: There is a large amount of stool within the rectal vault. There is mild rectal wall thickening. There is associated colonic distention. The appendix is visualized appears normal. There is no acute diverticulitis. Peritoneum: There is no intraperitoneal free air or abdominal ascites. Vasculature: The abdominal aorta is normal in course and caliber. Adenopathy: None. Pelvic viscera: Evaluation the pelvis is limited due to artifact from right hip arthroplasty. Multiple bladder calculi are visualized. There is indwelling Alvarado catheter. The uterus appears surgically absent. Skeletal structures: T11-T12 and L2 vertebral body compression deformities are evident. IMPRESSION: 1. Mild colonic dilatation with air-fluid levels, down to the level of a stool- filled rectum. Fecal impaction must be considered. No obstructing lesions are visualized 2. Rectal wall thickening. Again this could indicate a proctitis/stercoral colitis. 3. Multiple bladder calculi 4. Normal appendix 5. No renal or ureteral calculi identified
[2018-10-11] MEDS: lamoTRIgine 100 MG TAB PO SCH (23:12)
[2018-10-11] MEDS: lamoTRIgine 25 MG TAB PO SCH (23:12)
[2018-10-11] MEDS: levETIRAcetam 250 MG TAB PO SCH (23:12)
[2018-10-11] MEDS: CARBAMAZEPINE 100 MG TABCR PO SCH (23:12)
[2018-10-12] MEDS: LEVOTHYROXINE SODIUM 100 MCG TABLET PO SCH (04:26)
[2018-10-12] MEDS: D5NSS + 20MEQ KCL 20 MEQ/1,000 ML BAG IV SCH ×2 (04:26→11:56)
--- NOTE | 2018-10-12 06:44 | Ultrasound Report ---
BILATERAL LOWER EXTREMITY VENOUS DOPPLER HISTORY: Bilateral leg pain COMPARISON STUDY: None. FINDINGS: There is normal compressibility, flow, and augmentation within the bilateral lower extremit y deep venous systems. IMPRESSION: No DVT within the right or left lower extremity. Electronically signed by: Juan Carlos Garcia M.D. 10/12/2018 6:43 AM
[2018-10-12] MEDS ORDERED: ASPIRIN 81 MG CHEW PO SCH (09:00)
--- NOTE | 2018-10-12 09:28 | Hospitalist Progress Note ---
Date of Service October 12, 2018 Assessment & Plan (1) Altered mental status: Altered mental status, uncertain etiology. UA shows leukocyte esterase, many WBC's, bacteria. Has Alvarado cath, so significance of UA uncertain- (colonization vs infection). Hyponatremia and / or dehydration could be contributing. GI issues as discussed below. (2) Dehydration: BUN 25, creat 0.98 at time of admission. Receiving IV fluids. Today, BUN = 10 and creatinine = 0.5. Follow. (3) Hyponatremia: Serum sodium 129 at time of admission. Mechanism of hyponatremia uncertain. Probable SIADH. U osm 529. Serum creatinine today = 139. Change IV to 06/27 NSS. Follow. (4) Abdominal distention: Abdominal films demonstrated dilated loops of bowel with air fluid levels. Consider obstruction, ileus, pseudo-obstruction. CT did not show any apparent obstruction or free air. General Surgery and GI consulted. Follow-up KUB this morning shows persistent gaseous distention of bowel. 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 Keep NPO for now except for necessary meds. (5) Pulmonary fibrosis: Radiographically stable. Supplemental O2 as needed. (6) Alvarado catheter in place: Chronic Alvarado catheter for urinary retention. Catheter changed about 2 wks ago. Routine Alvarado care. (7) Seizure disorder: Continue usual anticonvulsants. (8) Hypothyroidism: Check TSH. Continue levothyroxine. (9) DVT prophylaxis: SQ enoxaparin. (10) Discharge planning issues: [facility] Family Medicine follow-up with Dr. Carvalho. Subjective Recheck for multiple problems. Patient seen in her room around 0920. Seem to be more alert. Denies any pain or other problems. No fever. No nausea or vomiting. Moved her bowels. Not coughing. Physical Exam Constitutional: WD/WN, vitals as above no acute distress Eyes: PERRL, conjunctivae normal, anicteric sclerae + EOM movement deficit (dysconjugate gaze) Respiratory: normal respiratory effort, lungs clear to auscultation Cardiovascular: Rate/Rhythm: regular rate Heart Sounds: no gallop Vessels: no JVD Extremities: normal capillary refill and + edema (trace); no calf tenderness Gastrointestinal (Abdomen): Inspection/Auscultation: + abdomen distended and normal bowel sounds Percussion/Palpation: abdomen soft; abdomen nontender Musculoskeletal: Head/Neck/Chest: neck supple Extremities: + upper extr emity abnormal to inspection (palsy & contractures LUE); no cyanosis and no clubbing Skin: no rashes, warm and dry Psychiatric: Orientation: alert Results & Data Vital Signs (Past 12 Hours) Vital Signs Temp Pulse Pulse Resp Pulse Ox 10/12/18 07:39 73 10/12/18 04:07 36.6 C 72 22 93 10/12/18 00:13 36.5 C 77 22 90 10/11/18 23:51 84
[2018-10-12 09:34] LABS: Hematocrit (blood only) 35.6 % (37-47); Hemoglobin 11.8 g/dL (12.0-16.0); Mean Corpuscular Hgb Conc 33.1 g/dL (32-36); Mean Corpuscular Volume 89.7 fL (80-100); Mean Platelet Volume 9.4 fL (7.4-10.4); Platelet Count 253 K/uL (130-400); RDW Standard Deviation 42.8 fL (36.4-46.3); Red Blood Count 3.97 M/uL (4.2-5.4); White Blood Count 3.98 K/uL (4.8-10.8)
[2018-10-12 09:46] LABS: INR 1.1 (0.9-1.1); Prothrombin Time 11.1 Seconds (9.0-12.0)
--- NOTE | 2018-10-12 09:50 | XRay Report ---
KUB HISTORY: Generalized abdominal pain COMPARISON: Abdomen and pelvis CT FINDINGS: There is again noted distention of the sigmoid colon within the midabdomen measuring up to 14 cm in diameter. This is not significantly changed compared to a 2018 examination. There is also mi ld distention of the remaining colon and small bowel. Right hip hemiarthroplasty persists. No renal calculi. No ureteral calculi. No pneumoperitoneum or pneumatosis. IMPRESSION: No significant change in the distended sigmoid colon. Given the chronic process this could represent colonic pseudoobstruction versus a chronic volvulus. Electronically signed by: Juan Carlos Garcia M.D. 10/12/2018 9:48 AM
[2018-10-12 10:12] LABS: BUN Creatinine Ratio 19.9 (10-20); Calcium 9.4 mg/dl (8.5-10.1); Est GFR (African American) 111.3; Potassium 3.7 mmol/L (3.5-5.1)
--- NOTE | 2018-10-12 11:39 | Gastrointestinal Consultation ---
Date of Consultation October 12, 2018 History of Present Illness Attending Physician: Brandin Anglin MD 73 yo female with h/o MR, chronic constipation with mult prior hospitalizations including hosp last Jun for same. She was admitted because staff at personal home thought that she was lethargic; however, per nursing staff, this cleared spontaneously within hours after admission. There was no report of increasing abd distention at [facility] on ER H/P. However, she underwent abd CT which showed markedly dilated stool filled colon; AXR this am also shows markedly dilated colon, with appearance similar to Jun 2017. Since admission, she had large volume BM last night, followed by several small volume BM's. On exam, she appears comfortable; she is minimally verbal, but smiles occasionally. Her abd is softly distended and mildly tympanic. She has stool in rectal vault. Labs reviewed A/P: Chronic pseudo-obstruction/toño rectum. - I doubt that she has an acute volvulus - imaging findings appear stable, and unchanged from prior, and pt is reportly stooling and comfortable. Will treat with enemas, suppositories; rec cont outpt regimen of Linzess and Miralax as well. Allergies Allergy/AdvReac Type Severity Reaction Status Date / Time No Known Allergies Allergy Unknown Verified 06/11/18 08:17 Home Medications Home Medications Medication Instructions Recorded Confirmed Type multivitamin [Multiple Vitamins] 1 tab PO DAILY #0 02/27/11 10/11/18 History acetaminophen 650 mg PO Q4 PRN #0 09/09/11 10/11/18 History carbamazepine [Carbatrol] 300 mg PO BID #0 06/29/12 10/11/18 History calcium carbonate [Oyster Shell 1 tab PO HS #0 11/29/12 10/11/18 History Calcium 500] white petrolatum [Aloe [place]] 1 applic TOPICAL BID #0 11/11/14 10/11/18 History aspirin 81 mg PO DAILY #0 07/17/17 10/11/18 History denosumab [Prolia] 60 mg SUBCUT UD #0 07/17/17 10/11/18 History dextromethorphan-guaifenesin 10 ml PO Q4H PRN #0 07/17/17 10/11/18 History [Robitussin Cough-Chest Mariano DM] hydrocortisone [Anusol-HC] 1 applic NV BID PRN 7 Days #30 g 07/17/17 10/11/18 History levothyroxine 100 mcg PO DAILY #0 07/17/17 10/11/18 History methenamine hippurate 1 g PO BID #0 07/17/17 10/11/18 History metronidazole [Metrogel] 1 applic TOPICAL DAILY #0 07/17/17 10/11/18 History lamotrigine [Lamictal] 300 mg PO BID 06/11/18 10/11/18 History linaclotide 290 mcg PO DAILY 06/11/18 10/11/18 History polyethylene glycol 3350 [Miralax] 17 g PO BID 06/11/18 10/11/18 History fluticasone propionate 2 spray INTRANASAL DAILY 10/11/18 10/11/18 History lamotrigine 50 mg PO BID 10/11/18 10/11/18 History levetiracetam 750 mg PO BID 10/11/18 10/11/18 History Patient History Medical History Seizure disorder (Chronic) Intellectual disability (Chronic) History of DVT (deep vein thrombosis) (Chronic) "2002- right lower extremity, completed Coumadin therapy" On 01/30/15 10:26 Francine Mckeon wrote "2002- right lower extremity" Hypothyroidism (Chronic) Pulmonary fibrosis (Chronic) Alvarado catheter in place (Chronic) Colon abnormality Family History Mother Hypertension Father Heart disease Grandmother Cancer Social History Preferred Language: Guatemalan Communication Ability: Impaired Cost Controller Required: No Beliefs That Will Affect Care: None Current Living Situation: Boarding Home Feels Safe at Home: Yes Safety Concerns: Feels Safe At This Time Smoking Status: Never smoker Hx Alcohol Use: No Hx Substance Use: No Results & Data Vital Signs (Past 12 Hours) Vital Signs Temp Pulse Pulse Resp Pulse Ox 10/12/18 07:39 73 10/12/18 04:07 36.6 C 72 22 93 10/12/18 00:13 36.5 C 77 22 90 10/11/18 23:51 84
[2018-10-12] MEDS ORDERED: BISACODYL 10 MG SUPP PR ONE (11:46)
[2018-10-12] MEDS: lamoTRIgine 25 MG TAB PO SCH ×2 (11:56→20:58)
[2018-10-12] MEDS: CARBAMAZEPINE 100 MG TABCR PO SCH ×2 (11:57→21:00)
[2018-10-12] MEDS: levETIRAcetam 250 MG TAB PO SCH ×2 (11:57→20:59)
[2018-10-12] MEDS: FLUTICASONE PROPIONATE NA SPR 16 GM BTL SCH (11:58)
[2018-10-12] MEDS: lamoTRIgine 100 MG TAB PO SCH ×2 (11:58→21:00)
[2018-10-12] MEDS: POLYETHYLENE (MIRALAX) 17 GM PACK PO SCH (12:50)
[2018-10-12] MEDS: D5W AND 1/4NSS + 20MEQ KCL 20 MEQ/1,000 ML BAG IV SCH ×2 (14:01→20:57)
[2018-10-12] MEDS: ENOXAPARIN INJ 40 MG/0.4 ML SYR SQ SCH (14:01)
[2018-10-12] MEDS: cefTRIAXone SODIUM 1,000 MG in DEXTROSE 5% 50 ML IV SCH (14:02)
[2018-10-12] MEDS: LINZESS: ORDER AWAITING ACTION SCH (16:57)
--- NOTE | 2018-10-12 18:53 | Surgery Progress Note ---
Date of Service October 12, 2018 Assessment & Plan (1) Abdominal distention: Bowels have moved This may been related to a fecal impaction Volvulus is not likely No evidence of peritonitis no indication for surgical intervention at this time Subjective Resting comfortably Has had [address] Sargent's input Physical Exam Gastrointestinal (Abdomen): Inspection/Auscultation: + abdomen distended (Mild) Percussion/Palpation: abdomen soft; abdomen nontender Results & Data Vital Signs (Past 12 Hours) Vital Signs Temp Pulse Pulse Resp BP Pulse Ox 10/12/18 15:31 37.3 C 78 20 173/77 H 95 10/12/18 15:09 73 10/12/18 12:00 37.2 C 82 18 150/78 H 94 10/12/18 07:39 73 Laboratory Results 10/12/18 10/12/18 10/12/18 Range/Units 16:00 09:22 09:22 WBC (4.8-10.8) K/uL RBC (4.2-5.4) M/uL Hgb (12.0-16.0) g/dL Hct (37-47) % MCV (80-100) fL MCH (25-34) pg MCHC (32-36) g/dL RDW Std Deviation (36.4-46.3) fL RDW Coeff of Db (11.5-14.5) % Plt Count (130-400) K/uL MPV (7.4-10.4) fL PT 11.1 (9.0-12.0) Seconds INR 1.1 (0.9-1.1) Sodium 139 D (136-145) mmol/L Potassium 3.7 (3.5-5.1) mmol/L Chloride 108 H (98-107) mmol/L Carbon Dioxide 27 (21-32) mmol/L Anion Gap 4.0 (3-11) BUN 10 D (7-18) mg/dl Creatinine 0.50 L D (0.6-1.2) mg/dl Est Cr Clr Drug Dosing 85.0 ml/min Est GFR ( Amer) 111.3 Est GFR (Non-Af Amer) 96.0 BUN/Creatinine Ratio 19.9 (10-20) Glucose 107 H (70-99) mg/dl Calcium 9.4 (8.5-10.1) mg/dl Urine Osmolality 529 (500-800) mOsm/kg 10/12/18 Range/Units 09:22 WBC 3.98 L (4.8-10.8) K/uL RBC 3.97 L (4.2-5.4) M/uL Hgb 11.8 L (12.0-16.0) g/dL Hct 35.6 L (37-47) % MCV 89.7 (80-100) fL MCH 29.7 (25-34) pg MCHC 33.1 (32-36) g/dL RDW Std Deviation 42.8 (36.4-46.3) fL RDW Coeff of Db 13.0 (11.5-14.5) % Plt Count 253 (130-400) K/uL MPV 9.4 (7.4-10.4) fL PT (9.0-12.0) Seconds INR (0.9-1.1) Sodium (136-145) mmol/L Potassium (3.5-5.1) mmol/L Chloride (98-107) mmol/L Carbon Dioxide (21-32) mmol/L Anion Gap (3-11) BUN (7-18) mg/dl Creatinine (0.6-1.2) mg/dl Est Cr Clr Drug Dosing ml/min Est GFR ( Amer) Est GFR (Non-Af Amer) BUN/Creatinine Ratio (10-20) Glucose (70-99) mg/dl Calcium (8.5-10.1) mg/dl Urine Osmolality (500-800) mOsm/kg
[2018-10-13] MEDS: LINZESS: ORDER AWAITING ACTION SCH ×3 (03:15→15:17)
[2018-10-13] MEDS: D5W AND 1/4NSS + 20MEQ KCL 20 MEQ/1,000 ML BAG IV SCH ×3 (04:41→20:42)
[2018-10-13] MEDS: LEVOTHYROXINE SODIUM 100 MCG TABLET PO SCH (04:42)
--- NOTE | 2018-10-13 07:33 | XRay Report ---
XR KUB/Abdomen 1 view CLINICAL HISTORY: Abdominal pain COMPARISON STUDY: 10/12/2018 FINDINGS: There are gas filled colonic and small bowel loops. There is diminished sigmoid distention which currently measures 11.6 cm.. Multiple bladder calculi are visualized. IMPRESSION: 1. Decreasing sigmoid distention which currently measures 11.6 cm 2. Bladder calculi Electronically signed by: Ivan Fam M.D. 10/13/2018 7:31 AM
[2018-10-13 07:36] LABS: Hematocrit (blood only) 35.1 % (37-47); Hemoglobin 11.6 g/dL (12.0-16.0); Mean Corpuscular Volume 89.3 fL (80-100); Mean Platelet Volume 9.9 fL (7.4-10.4); Platelet Count 251 K/uL (130-400); RDW Standard Deviation 42.7 fL (36.4-46.3); Red Blood Count 3.93 M/uL (4.2-5.4); White Blood Count 5.48 K/uL (4.8-10.8)
[2018-10-13 08:11] LABS: BUN Creatinine Ratio 11.5 (10-20); Calcium 8.6 mg/dl (8.5-10.1); Creatinine Clr Calc Pharmacy 96.3 ml/min; Est GFR (African American) 115.2; Est GFR (Non-African American) 99.4; Potassium 4.1 mmol/L (3.5-5.1)
[2018-10-13] MEDS: lamoTRIgine 100 MG TAB PO SCH ×2 (08:54→20:41)
[2018-10-13] MEDS: CARBAMAZEPINE 100 MG TABCR PO SCH ×2 (08:54→20:40)
[2018-10-13] MEDS: FLUTICASONE PROPIONATE NA SPR 16 GM BTL SCH (08:54)
[2018-10-13] MEDS: levETIRAcetam 250 MG TAB PO SCH ×2 (08:54→20:39)
[2018-10-13] MEDS: lamoTRIgine 25 MG TAB PO SCH ×2 (08:55→20:39)
[2018-10-13] MEDS: ENOXAPARIN INJ 40 MG/0.4 ML SYR SQ SCH (08:55)
[2018-10-13] MEDS: POLYETHYLENE (MIRALAX) 17 GM PACK PO SCH (08:56)
--- NOTE | 2018-10-13 10:20 | Gastroenterology Progress Note ---
Date of Service October 13, 2018 Assessment & Plan (1) Colon abnormality: 73 year old female with MR, chronic pseudo-obstruction/toño rectum, chronic constipation on OP regimen w/ Linzess and miralax who presented w/ urinary symptoms - GI asked to evaluate given chronic CT findings. Her CT and KUB imaging is unchanged from prior, she is passing gas and moving her bowels. KUB this AM improved. - Would start home dose of Linzess - Miralax 1 capful 1-2 times daily - Can use soap suds enema PRN for goal of 1-2 BM daily - No current indication for endoscopic evaluation - No GI contraindication to diet - GI to sign off. Thank you for allowing us to participate in the care of this patient. Please call with any acute changes, questions or concerns. Please see addendum below with additional recommendation from my supervising physician. Present on Admission?: Yes Supervising Physician Co-Signing Physician Notes I have seen and examined the patient and discussed the management with APOLLO Montgomery. 73 yo fm non-verbal at baseline, contractures, with chronic pseudo-obstruction followed by [facility] as an outpatient. PE significant for non verbal female in nad, contracted, abd soft nt nd +bs, She reportedly has been passing gas and bowel movements. WBC count normal, k and mg normal. Imaging reviewed. Agree with further plan of care as Elida's plan. Subjective Pt was seen and evaluated, chart reviewed. No family/friends at bedside. Known from OP evaluation and prior admission. Offers no complaints. KUB Decreasing sigmoid distention which currently measures 11.6 cm KUB: Again noted distention of the sigmoid colon within the midabdomen measuring up to 14 cm in diameter. This is not significantly changed compared to a [address]: Mild colonic dilatation with air-fluid levels, down to the level of a stool-filled rectum. Fecal impaction must be considered. No obstructing lesions are visualized Rectal wall thickening. Again this could indicate a proctitis/stercoral colitis. Review of Systems Review of Systems: Unobtainable due to cognitive status Physical Exam Constitutional: WD/WN, vitals as above + behavioral limitations; no acute distress Respiratory: Auscultation: + diminished lung sounds; no crackles and no whee zes Cardiovascular: Rate/Rhythm: regular rate and regular rhythm; not tachycardic Heart Sounds: normal S1; no click, no gallop and no cardiac rub Gastrointestinal (Abdomen): Inspection/Auscultation: abdomen normal to inspection, + abdomen distended (mild) and normal bowel sounds (diminished x 4) Percussion/Palpation: abdomen soft; abdomen nontender, no guarding, abdomen not rigid and no abdominal mass Skin: no rashes, warm and dry Results & Data Vital Signs (Past 12 Hours) Vital Signs Temp Pulse Pulse Resp BP Pulse Ox 10/13/18 08:00 36.4 C L 72 18 138/74 94 10/13/18 03:35 36.3 C L 83 22 159/86 H 93 10/12/18 22:51 86 10/12/18 22:26 36.6 C 85 22 159/82 H 92
--- NOTE | 2018-10-13 11:23 | Surgery Progress Note ---
Date of Service October 13, 2018 Assessment & Plan (1) Abdominal distention: History of chronic pseudo-obstructions and constipation on Linzess and Miralax, follows with [facility] KUB today showing improved colonic distention at 11.6 cm compared to 14 cm on 10/12/18 Per nursing staff, bowel movements last night none so far this shift Volvulus is not likely No evidence of peritonitis no indication for surgical intervention at this time Plan: Continue current bowel regimen recommended by GI continue medical management Discussed patient with Dr. Shaw who agrees with above Subjective nonverbal female, unable to obtain ROS She shakes her head when asked if she is having any abdominal pain or nausea Physical Exam Constitutional: cooperative; no acute distress and not ill appearing Nonverbal female , no distress, contractures Respiratory: normal respiratory effort; no respiratory distress Gastrointestinal (Abdomen): Inspection/Auscultation: + abdomen distended (mild) and normal bowel sounds (hyperactive) Percussion/Palpation: + abdomen tender (epigastric region) and abdomen soft; no guarding and abdomen not rigid Skin: no rashes, warm and dry Psychiatric: Orientation: alert Results & Data Vital Signs (Past 12 Hours) Vital Signs Temp Pulse Resp BP Pulse Ox 10/13/18 11:00 36.2 C L 63 18 155/77 H 96 10/13/18 08:00 36.4 C L 72 18 138/74 94 10/13/18 03:35 36.3 C L 83 22 159/86 H 93 Laboratory Results 10/13/18 10/13/18 10/12/18 Range/Units 07:17 07:17 16:00 WBC 5.48 (4.8-10.8) K/uL RBC 3.93 L (4.2-5.4) M/uL Hgb 11.6 L (12.0-16.0) g/dL Hct 35.1 L (37-47) % MCV 89.3 (80-100) fL MCH 29.5 (25-34) pg MCHC 33.0 (32-36) g/dL RDW Std Deviation 42.7 (36.4-46.3) fL RDW Coeff of Db 13.0 (11.5-14.5) % Plt Count 251 (130-400) K/uL MPV 9.9 (7.4-10.4) fL Sodium 133 L (136-145) mmol/L Potassium 4.1 (3.5-5.1) mmol/L Chloride 103 (98-107) mmol/L Carbon Dioxide 24 (21-32) mmol/L Anion Gap 6.0 (3-11) BUN 5 L D (7-18) mg/dl Creatinine 0.45 L (0.6-1.2) mg/dl Est Cr Clr Drug Dosing 96.3 ml/min Est GFR ( Amer) 115.2 Est GFR (Non-Af Amer) 99.4 BUN/Creatinine Ratio 11.5 (10-20) Glucose 89 (70-99) mg/dl Calcium 8.6 (8.5-10.1) mg/dl TSH 2.050 (0.300-4.500) uIu/ml Urine Osmolality 529 (500-800) mOsm/kg Diagnostic Findings XR KUB/Abdomen 1 view CLINICAL HISTORY: Abdominal pain COMPARISON STUDY: 10/12/2018 FINDINGS: There are gas filled colonic and small bowel loops. There is diminished sigmoid distention which currently measures 11.6 cm.. Multiple bladder calculi are visualized. IMPRESSION: 1. Decreasing sigmoid distention which currently measures 11.6 cm 2. Bladder calculi
[2018-10-13] MEDS: cefTRIAXone SODIUM 1,000 MG in DEXTROSE 5% 50 ML IV SCH (15:16)
--- NOTE | 2018-10-13 21:43 | Hospitalist Progress Note ---
Date of Service October 13, 2018 Assessment & Plan (1) Altered mental status: Altered mental status, uncertain etiology. UA shows leukocyte esterase, many WBC's, bacteria. Has Alvarado cath. Urine culture grew more than 3 types of organisms, probable colonization. Received empiric IV ceftriaxone, but will discontinue it. Hyponatremia and / or dehydration could be contributing. GI issues as discussed below. Probable metabolic encephalopathy due to dehydration and hyponatremia. (2) Dehydration: BUN 25, creat 0.98 at time of admission. Receiving IV fluids. Today, BUN = 5 and creatinine = 0.45. Follow. (3) Hyponatremia: Serum sodium 129 at time of admission. Mechanism of hyponatremia uncertain. Probable SIADH. U osm 529. Serum creatinine today = 133. Continue D5 06/27 NSS. Follow. (4) Abdominal distention: Abdominal films demonstrated dilated loops of bowel with air fluid levels. Consider obstruction, ileus, pseudo-obstruction. CT did not show any apparent obstruction or free air. General Surgery and GI consulted. Follow-up KUB this morning shows improvement gaseous distention of bowel. Passing stool. Abdominal exam benign. Start clear liquids; advance diet as tolerated with aspiration precautions. Continue bowel regimen. (5) Pulmonary fibrosis: Radiographically stable. Supplemental O2 as needed. (6) Alvarado catheter in place: Chronic Alvarado catheter for urinary retention. Catheter changed about 2 wks ago. Routine Alvarado care. (7) Seizure disorder: Continue usual anticonvulsants. (8) Hypothyroidism: Check TSH. Continue levothyroxine. (9) DVT prophylaxis: SQ enoxaparin. (10) Discharge planning issues: [facility]ticip[facility] return [facility]. Family Medicine follow-up with Dr. Carvalho. Subjective Recheck for multiple problems. Patient seen in her room around 1450. Nursing reports that pt more alert and interactive this morning. More somnolent after taking her meds. No fever. No cough. No emesis. Passing stool without gross blood. Chronic indwelling Alvarado cath. Patient unable to cooperate with ROS. Physical Exam Constitutional: WD/WN, vitals as above no acute distress Respiratory: normal respiratory effort, lungs clear to auscultation Cardiovascular: Rate/Rhythm: regular rate Heart Sounds: no gallop Vessels: no JVD Extremities: + edema (trace); no calf tenderness Gastrointestinal (Abdomen): Inspection/Auscultation: + abdomen distended and normal bowel sounds Percussion/Palpation: abdomen soft; abdomen nontender, no guarding and abdomen not rigid Musculoskeletal: Extremities: + upper extremity abnormal to inspection (palsy & contractures LUE); no cyanosis and no clubbing Skin: no rashes, warm and dry Psychiatric: Orientation: + not alert (somnolent at time of my assessment) Results & Data Vital Signs (Past 12 Hours) Vital Signs Temp Pulse Pulse Resp BP Pulse Ox 10/13/18 19:33 36.5 C 93 H 18 91 10/13/18 15:19 36.8 C 65 18 150/106 H 97 10/13/18 14:20 57 L 10/13/18 11:00 36.2 C L 63 18 155/77 H 96 Laboratory Results Laboratory Results - last 24 hr 10/13/18 10/13/18 07:17 07:17 WBC 5.48 RBC 3.93 L Hgb 11.6 L Hct 35.1 L MCV 89.3 MCH 29.5 MCHC 33.0 RDW Std Deviation 42.7 RDW Coeff of Db 13.0 Plt Count 251 MPV 9.9 Sodium 133 L Potassium 4.1 Chloride 103 Carbon Dioxide 24 Anion Gap 6.0 BUN 5 L D Creatinine 0.45 L Est Cr Clr Drug Dosing 96.3 Est GFR ( Amer) 115.2 Est GFR (Non-Af Amer) 99.4 BUN/Creatinine Ratio 11.5 Glucose 89 Calcium 8.6 TSH 2.050
[2018-10-14] MEDS: LINZESS 290 MCG SCH ×3 (03:11→15:38)
[2018-10-14] MEDS: D5W AND 1/4NSS + 20MEQ KCL 20 MEQ/1,000 ML BAG IV SCH ×2 (05:04→17:41)
[2018-10-14] MEDS: LEVOTHYROXINE SODIUM 100 MCG TABLET PO SCH (05:05)
[2018-10-14 07:57] LABS: Basophils # (auto) 0.03 K/uL (0-0.2); Basophils % (auto) 0.7 %; Hematocrit (blood only) 37.1 % (37-47); Hemoglobin 12.3 g/dL (12.0-16.0); Immature Granulocytes # (auto) 0.01 K/uL (0.00-0.02); Immature Granulocytes % (auto) 0.2 %; Lymphocytes # (auto) 2.02 K/uL (1.2-3.4); Lymphocytes % (auto) 47.2 %; Mean Corpuscular Hgb Conc 33.2 g/dL (32-36); Mean Corpuscular Volume 90.3 fL (80-100); Mean Platelet Volume 9.4 fL (7.4-10.4); Monocytes # (auto) 0.34 K/uL (0.11-0.59); Monocytes % (auto) 7.9 %; Neutrophils # (auto) 1.58 K/uL (1.4-6.5); Platelet Count 240 K/uL (130-400); RDW Coefficient of Variation 13.1 % (11.5-14.5); RDW Standard Deviation 43.2 fL (36.4-46.3); Red Blood Count 4.11 M/uL (4.2-5.4); White Blood Count 4.28 K/uL (4.8-10.8)
[2018-10-14 08:23] LABS: BUN Creatinine Ratio 7.2 (10-20); Calcium 8.7 mg/dl (8.5-10.1); Creatinine Clr Calc Pharmacy 89.8 ml/min; Est GFR (African American) 112.8; Est GFR (Non-African American) 97.3; Potassium 4.4 mmol/L (3.5-5.1)
[2018-10-14] MEDS: CARBAMAZEPINE 100 MG TABCR PO SCH ×2 (09:31→20:12)
[2018-10-14] MEDS: levETIRAcetam 250 MG TAB PO SCH ×2 (09:32→20:11)
[2018-10-14] MEDS: lamoTRIgine 100 MG TAB PO SCH ×2 (09:32→20:11)
[2018-10-14] MEDS: FLUTICASONE PROPIONATE NA SPR 16 GM BTL SCH (09:32)
[2018-10-14] MEDS: lamoTRIgine 25 MG TAB PO SCH ×2 (09:32→20:11)
[2018-10-14] MEDS: ENOXAPARIN INJ 40 MG/0.4 ML SYR SQ SCH (09:33)
[2018-10-14] MEDS: POLYETHYLENE (MIRALAX) 17 GM PACK PO SCH (09:33)
--- NOTE | 2018-10-14 19:34 | Hospitalist Progress Note ---
Date of Service October 14, 2018 Assessment & Plan (1) Altered mental status: Altered mental status, uncertain etiology. UA shows leukocyte esterase, many WBC's, bacteria. Has Alvarado cath. Urine culture grew more than 3 types of organisms, probable colonization. Received empiric IV ceftriaxone, but will discontinue it. Hyponatremia and / or dehydration could be contributing. GI issues as discussed below. Probable metabolic encephalopathy due to dehydration and hyponatremia. (2) Dehydration: BUN 25, creat 0.98 at time of admission. Receiving IV fluids. Today, BUN = 5 and creatinine = 0.45. Follow. (3) Hyponatremia: Serum sodium 129 at time of admission. Mechanism of hyponatremia uncertain. Probable SIADH. U osm 529. Serum creatinine today = 133. Continue D5 06/27 NSS. Follow. (4) Abdominal distention: Abdominal films demonstrated dilated loops of bowel with air fluid levels. Consider obstruction, ileus, pseudo-obstruction. CT did not show any apparent obstruction or free air. General Surgery and GI consulted. Follow-up KUB this morning shows improvement gaseous distention of bowel. Passing stool. Abdominal exam benign. Start clear liquids; advance diet as tolerated with aspiration precautions. Continue bowel regimen. (5) Pulmonary fibrosis: Radiographically stable. Supplemental O2 as needed. (6) Alvarado catheter in place: Chronic Alvarado catheter for urinary retention. Catheter changed about 2 wks ago. Routine Alvarado care. (7) Seizure disorder: Continue usual anticonvulsants. (8) Hypothyroidism: Check TSH. Continue levothyroxine. (9) DVT prophylaxis: SQ enoxaparin. (10) Discharge planning issues: Anticipated return to [facility]. Family Medicine follow-up with Dr. Carvalho. Subjective Pt was seen and examined Lying in bed with no distress Denies any chest pain, palpitation and dizziness Physical Exam Physical Exam: General- No acute distress Head- atraumatic Eyes- PERRL, EOMI, ENT- oropharynx clear Neck- supple, no JVD Lungs- clear to auscultation Heart- regular rhythm; no murmur Abdomen- normal bowel sounds, +tenderness and distended Extremities- no calf tenderness, +edema Neuro- alert, oriented x 3; PERRL, EOMI; no facial palsy; no dysarthria Skin- warm & dry Results & Data Vital Signs (Past 12 Hours) Vital Signs Temp Pulse Pulse Resp BP BP Pulse Ox 10/14/18 16:00 73 10/14/18 15:00 36.5 C 74 18 162/79 H 94 10/14/18 12:00 36.7 C 56 L 18 138/69 93
[2018-10-15] MEDS: LINZESS 290 MCG SCH ×2 (00:12→10:47)
[2018-10-15] MEDS: D5W AND 1/4NSS + 20MEQ KCL 20 MEQ/1,000 ML BAG IV SCH ×2 (03:04→03:08)
[2018-10-15] MEDS: LEVOTHYROXINE SODIUM 100 MCG TABLET PO SCH ×2 (06:31→10:49)
--- NOTE | 2018-10-15 08:38 | Surgery Progress Note ---
Date of Service October 15, 2018 Assessment & Plan (1) Abdominal distention: History of chronic pseudo-obstructions and constipation on Linzess and Miralax, follows with [email or web address] KUB 10/13 showing improved colonic distention at 11.6 cm compared to 14 cm on 10/12/18 Per nursing staff, bowel movements last night Volvulus is not likely No evidence of peritonitis no indication for surgical intervention at this time Plan: Continue current bowel regimen recommended by GI continue medical management Our services signing off, thank you for involving us in the care of this patient DR. Shaw has seen and examined pt, agrees with above Subjective unable to obtain ROS , patient nonverbal sleeping on entering room, nurse says she did not sleep well last night so very tired this morning Per nurse, bowel movements last night and becoming more formed. Tolerating advancement of diet. Full liquids currently. Physical Exam Constitutional: no acute distress and not ill appearing currently sleeping, + contractions Respiratory: normal respiratory effort; no respiratory distress Gastrointestinal (Abdomen): Inspection/Auscultation: abdomen not distended Percussion/Palpation: abdomen soft; abdomen nontender, no guarding and abdomen not rigid Skin: no rashes, warm and dry Results & Data Vital Signs (Past 12 Hours) Vital Signs Temp Pulse Pulse Pulse Resp BP BP 10/15/18 07:36 36.4 C L 56 L 18 157/80 H 10/15/18 07:12 67 10/15/18 00:44 73 10/14/18 23:37 36.7 C 85 18 154/87 H Pulse Ox 10/15/18 07:36 94 10/15/18 07:12 10/15/18 00:44 10/14/18 23:37 93
[2018-10-15] MEDS: lamoTRIgine 25 MG TAB PO SCH (10:44)
[2018-10-15] MEDS: ENOXAPARIN INJ 40 MG/0.4 ML SYR SQ SCH (10:45)
[2018-10-15] MEDS: POLYETHYLENE (MIRALAX) 17 GM PACK PO SCH (10:46)
[2018-10-15] MEDS: levETIRAcetam 250 MG TAB PO SCH (10:46)
[2018-10-15] MEDS: FLUTICASONE PROPIONATE NA SPR 16 GM BTL SCH (10:46)
[2018-10-15] MEDS: lamoTRIgine 100 MG TAB PO SCH (10:46)
[2018-10-15] MEDS: CARBAMAZEPINE 100 MG TABCR PO SCH (10:48)
--- NOTE | 2018-10-15 20:38 | Hospitalist Progress Note ---
Date of Service October 15, 2018 Assessment & Plan (1) Altered mental status: Altered mental status, uncertain etiology. UA shows leukocyte esterase, many WBC's, bacteria. Has Alvarado cath. Urine culture grew more than 3 types of organisms, probable colonization. Received empiric IV ceftriaxone, but will discontinue it. Hyponatremia and / or dehydration could be contributing. GI issues as discussed below. Probable metabolic encephalopathy due to dehydration and hyponatremia. (2) Dehydration: BUN 25, creat 0.98 at time of admission. Receiving IV fluids. Creatinine stable (3) Hyponatremia: Serum sodium 129 at time of admission. Mechanism of hyponatremia uncertain. Probable SIADH. U osm 529. Na improves Monitor BMP (4) Abdominal distention: Abdominal films demonstrated dilated loops of bowel with air fluid levels. Consider obstruction, ileus, pseudo-obstruction. CT did not show any apparent obstruction or free air. General Surgery and GI consulted. Follow-up KUB this morning shows improvement gaseous distention of bowel. Passing stool. Abdominal exam benign. Tolerated diet and aspiration precautions. Continue bowel regimen. (5) Pulmonary fibrosis: Radiographically stable. Supplemental O2 as needed. (6) Alvarado catheter in place: Chronic Alvarado catheter for urinary retention. Catheter changed about 2 wks ago. Routine Alvarado care. (7) Seizure disorder: Continue usual anticonvulsants. (8) Hypothyroidism: stable Continue levothyroxine. (9) DVT prophylaxis: SQ enoxaparin. (10) Discharge planning issues: [facility] Family Medicine follow-up with Dr. Carvalho. Subjective Pt was seen and examined Lying in bed with no distress Denies any chest pain, palpitation and dizziness Physical Exam Physical Exam: General- No acute distress Head- atraumatic Eyes- PERRL, EOMI, ENT- oropharynx clear Neck- supple, no JVD Lungs- clear to auscultation Heart- regular rhythm; no murmur Abdomen- normal bowel sounds, non tender, non distended Extremities- no calf tenderness, +edema Neuro- alert, oriented x 3; PERRL, EOMI; no facial palsy; no dysarthria Skin- warm & dry Results & Data Vital Signs (Past 12 Hours) Vital Signs Temp Pulse Resp BP Pulse Ox 10/15/18 13:31 36.4 C L 56 L 18 157/80 H 94 10/15/18 13:20 36.4 C L 56 L 18 157/80 H 94 10/15/18 13:09 36.4 C L 56 L 18 157/80 H 94
--- NOTE | 2018-10-24 12:30 | Discharge Summary ---
Date of Service October 15, 2018 Admission HPI Per Admitting Provider 73-year-old female followed by Dr. Carvalho for Family Medicine. History of cognitive disability, seizure disorder, and other problems as noted. Dependent for most of her care. Bed / chair bound. Able to feed herself with her right hand. Minimally verbal. Lives in [facility] home [facility] [address] [facility] in [place]. Last hospitalized at [facility] in June 2017. Problems during that hospital stay included possible sigmoid volvulus and fecal impaction. General Surgery and GI were consulted. Managed conservatively with enemas and laxatives with improvement. This morning staff noted that she seemed to be tired and not herself. She was not cooperative with morning routine, just wanted to be left alone. No apparent fever. No cough, nausea, vomiting. No change of bowel habits. Has chronic Rodriguez catheter for urinary retention. No reported foul-smelling urine or gross hematuria. No apparent seizures. Patient unable to provide any history because of her cognitive disability and current illness. Admission Exam Per Admitting Provider Constitutional: WD/WN, vitals as above no acute distress Eyes: PERRL, conjunctivae normal, anicteric sclerae + EOM movement deficit (dysconjugate gaze) ENMT: external ear and nose normal, oropharynx normal Neck: trachea midline, no thyromegaly Respiratory: normal respiratory effort, lungs clear to auscultation Cardiovascular: Rate/Rhythm: regular rate Heart Sounds: no gallop Vessels: no JVD Extremities: normal capillary refill and + edema (trace); no calf tenderness Gastrointestinal: Inspection/Auscultation: + abdomen distended (slightly); + abnormal bowel sounds (quiet) Percussion/Palpation: + abdomen tender (diffuse, mild) and abdomen soft; no guarding and abdomen not rigid Musculoskeletal: Head/Neck/Chest: neck supple Extremities: + upper extremity abnormal to inspection (palsy & contractures LUE); no cyanosis and no clubbing Skin: no rashes, warm and dry Neurologic: dysconjugate gaz, pupils reactive, dysarthric, LUE weakness with flexion contractures Principal Diagnosis Abdominal Distention Altered mental status Hyponatremia Hypertension Discharge Exam General- No acute distress Head- atraumatic Eyes- PERRL, EOMI, ENT- oropharynx clear Neck- supple, no JVD Lungs- clear to auscultation Heart- regular rhythm; no murmur Abdomen- normal bowel sounds, non tender, non distended Extremities- no calf tenderness, +edema Neuro- alert, oriented x 3; PERRL, EOMI; no facial palsy; no dysarthria Skin- warm & dry Discharge Data Allergies Allergy/AdvReac Type Severity Reaction Status Date / Time No Known Allergies Allergy Unknown Verified 06/11/18 08:17 Consultations 10/11/18 16:12 ED Decision to Admit Stat 10/11/18 21:34 Consult Gastroenterology Routine Consult General Surgery Routine Ordered Studies 10/11/18 19:18 US venous doppler LE BI Urgent 10/11/18 21:30 CT abd pelvis wo con Urgent XR chest 1V portable CLINICAL HISTORY: Hypoxia COMPARISON STUDY: 07/17/2017 FINDINGS: The heart is borderline enlarged. There is aortic tortuosity. There is evidence for underlying chronic lung disease. Asymmetric right greater than left interstitial opacities remain stable. There is no superimposed parenchymal consolidation.[ IMPRESSION: 1. Stable findings 2. Stable asymmetric interstitial lung disease right greater than left. Electronically signed by: Ivan Fam M.D. 10/11/2018 3:03 PM Dictated: 10/11/18 1501 Transcribed: 10/11/18 1501 XR abdomen min 2V CLINICAL HISTORY: abdominal pain COMPARISON STUDY: 07/19/2017 FINDINGS: Supine and decubitus views of the abdomen are provided for interpretation. There is gaseous distention of the colon. This extends down to the level of the sigmoid. The decubitus view reveals multiple air-fluid levels. There is no free air. Interstitial fibrotic changes are present within the chest. Multiple bladder calculi are suspected. IMPRESSION: 1. Gaseous distention of the bowel with multiple air-fluid levels. 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 2. Multiple bladder calculi 3. No evidence of free air Electronically signed by: Ivan Fam M.D. 10/11/2018 8:28 PM Dictated: 10/11/182024 Transcribed: 10/11/182024 BILATERAL LOWER EXTREMITY VENOUS DOPPLER HISTORY: Bilateral leg pain COMPARISON STUDY: None. FINDINGS: There is normal compressibility, flow, and augmentation within the bilateral lower extremity deep venous systems. IMPRESSION: No DVT within the right or left lower extremity. Electronically signed by: Juan Carlos Garcia M.D. 10/12/2018 6:43 AM Dictated: 10/12/18 0642 Transcribed: 10/12/18641 CT SCAN OF THE ABDOMEN AND PELVIS WITHOUT CONTRAST CLINICAL HISTORY: Abdominal pain. Dilated loops on x-ray. COMPARISON STUDY: July 2017 TECHNIQUE: CT scan of the abdomen and pelvis was performed from the lung bases to the proximal femurs. Images are reviewed in the axial, sagittal, and coronal planes. IV contrast was not administered for this examination. A dose lowering technique was utilized adhering to the principles of ALARA. CT DOSE: 508.05 mGy.cm FINDINGS: The study is limited from a technical standpoint. There is artifact from the patient's arms as she was unable to raise them for the scan. In addition the study was performed without intravenous or oral contrast. Lower chest: There are chronic interstitial right lung opacities similar to the prior study. Liver: The unenhanced liver is normal in size, contour, and attenuation. There is no intrahepatic biliary ductal dilatation. Gallbladder: Unremarkable. Spleen: Normal in size and attenuation. Pancreas: Unremarkable. Adrenal glands: Unremarkable. Kidneys: No renal calculi are visualized. There is no hydronephrosis. Bowel: There is a large amount of stool within the rectal vault. There is mild rectal wall thickening. There is associated colonic distention. The appendix is visualized appears normal. There is no acute diverticulitis. Peritoneum: There is no intraperitoneal free air or abdominal ascites. Vasculature: The abdominal aorta is normal in course and caliber. Adenopathy: None. Pelvic viscera: Evaluation the pelvis is limited due to artifact from right hip arthroplasty. Multiple bladder calculi are visualized. There is indwelling Rodriguez catheter. The uterus appears surgically absent. Skeletal structures: T11-T12 and L2 vertebral body compression deformities are evident. IMPRESSION: 1. Mild colonic dilatation with air-fluid levels, down to the level of a stool-filled rectum. Fecal impaction must be considered. No obstructing lesions are visualized 2. Rectal wall thickening. Again this could indicate a proctitis/stercoral colitis. 3. Multiple bladder calculi 4. Normal appendix 5. No renal or ureteral calculi identified Electronically signed by: Ivan Fam M.D. 10/11/2018 10:25 PM Dictated: 10/11/187 Transcribed: 10/11/182216 KUB HISTORY: Generalized abdominal pain COMPARISON: Abdomen and pelvis CT FINDINGS: There is again noted distention of the sigmoid colon within the midabdomen measuring up to 14 cm in diameter. This is not significantly changed compared to a 2018 examination. There is also mild distention of the remaining colon and small bowel. Right hip hemiarthroplasty persists. No renal calculi. No ureteral calculi. No pneumoperitoneum or pneumatosis. IMPRESSION: No significant change in the distended sigmoid colon. Given the chronic process this could represent colonic pseudoobstruction versus a chronic volvulus. Electronically signed by: Juan Carlos Garcia M.D. 10/12/2018 9:48 AM Dictated: 10/12/18925 Transcribed: 10/12/18925 XR KUB/Abdomen 1 view CLINICAL HISTORY: Abdominal pain COMPARISON STUDY: 10/12/2018 FINDINGS: There are gas filled colonic and small bowel loops. There is diminished sigmoid distention which currently measures 11.6 cm.. Multiple bladder calculi are visualized. IMPRESSION: 1. Decreasing sigmoid distention which currently measures 11.6 cm 2. Bladder calculi Electronically signed by: Ivan Fam M.D. 10/13/2018 7:31 AM Dictated: 10/13/18 0728 Transcribed: 10/13/18727 Hospital Course (1) Altered mental status: Altered mental status, uncertain etiology. UA shows leukocyte esterase, many WBC's, bacteria. Has Rodriguez cath. Urine culture grew more than 3 types of organisms, probable colonization. Received empiric IV ceftriaxone, but will discontinue it. Hyponatremia and / or dehydration could be contributing. GI issues as discussed below. Probable metabolic encephalopathy due to dehydration and hyponatremia. (2) Dehydration: BUN 25, creat 0.98 at time of admission. Receiving IV fluids. Creatinine stable (3) Hyponatremia: Serum sodium 129 at time of admission. Mechanism of hyponatremia uncertain. Probable SIADH. U osm 529. Na improves Monitor BMP (4) Abdominal distention: Abdominal films demonstrated dilated loops of bowel with air fluid levels. Consider obstruction, ileus, pseudo-obstruction. CT did not show any apparent obstruction or free air. General Surgery and GI consulted. Follow-up KUB this morning shows improvement gaseous distention of bowel. Passing stool. Abdominal exam benign. Tolerated diet and aspiration precautions. Continue bowel regimen. (5) Pulmonary fibrosis: Radiographically stable. Supplemental O2 as needed. (6) Rodriguez catheter in place: Chronic Rodriguez catheter for urinary retention. Catheter changed about 2 wks ago. Routine Rodriguez care. (7) Seizure disorder: Continue usual anticonvulsants. (8) Hypothyroidism: stable Continue levothyroxine. (9) DVT prophylaxis: SQ enoxaparin. (10) Discharge planning issues: [facility]ticip[facility] return [facility]. Family Medicine follow-up with Dr. Carvalho. Total Time Total Time Spent Total Time Spent (In Minutes): 35 minutes Total Time Includes: Examination of the Patient, Discharge Planning, Medication Reconciliation, Communication With Other Providers and Other Discharge Plan Discharge Items Patient Disposition: Home - Home Health Services Reason For Visit: AMS Discharge Diagnosis: Abdominal Distention Altered mental status Hyponatremia Hypertension Discharge Goals: Decrease discomfort, Improve disease control, Improve function and Increase independence Activity: Resume your previous activity Activity Comment: As tolerated Non-emergency contact: Primary Care Provider Call non-emergency contact if: you have any medication questions and your temperature is above 101 Follow-up/Referrals: Lora Carvalho, [Primary Care Provider] - Diet: Low Fiber Addtl Provider Instructions: Follow up with your primary care provider Advanced diet as tolerated Fall precaution Aspiration precaution Seizure precaution Keep rodriguez catheter on discharge Prescriptions: Continued multivitamin [Multiple Vitamins] Tablet 1 tab PO DAILY Qty: 0 RF: 0 acetaminophen 325 mg Tablet 650 mg PO Q4 PRN (Reason: Pain) Qty: 0 RF: 0 carbamazepine [Carbatrol] 300 mg Capsule, Er Multiphase 12 Hr 300 mg PO BID Qty: 0 RF: 0 calcium carbonate [Oyster Shell Calcium 500] 500 mg calcium (1,250 mg) Tablet 1 tab PO HS Qty: 0 RF: 0 Aloe Sumner 43 % Ointment 1 applic TOPICAL BID Qty: 0 RF: 0 levothyroxine 100 mcg Tablet 100 mcg PO DAILY Qty: 0 RF: 0 hydrocortisone [Anusol-HC] 2.5 % Cream With Perineal Applicator 1 applic IN BID PRN (Reason: hemorrhoids) 7 Days Qty: 30 RF: 0 methenamine hippurate 1 gram Tablet 1 g PO BID Qty: 0 RF: 0 aspirin 81 mg Tablet,Chewable 81 mg PO DAILY Qty: 0 RF: 0 metronidazole [Metrogel] 1 % Gel 1 applic TOPICAL DAILY Qty: 0 RF: 0 Prolia 60 mg/mL Syringe 60 mg subcut UD Qty: 0 RF: 0 Robitussin Cough-Chest Mariano DM 5-100 mg/5 mL Liquid 10 ml PO Q4H PRN (Reason: Cold Symptoms) Qty: 0 RF: 0 lamotrigine [Lamictal] 150 mg Tablet 300 mg PO BID RF: 0 polyethylene glycol 3350 [Miralax] 17 gram Powder In Packet 17 g PO BID RF: 0 linaclotide 290 mcg Capsule 290 mcg PO DAILY RF: 0 fluticasone propionate 50 mcg/actuation [place],Suspension 2 spray INTRANASAL DAILY RF: 0 levetiracetam 750 mg tablet 750 mg PO BID RF: 0 lamotrigine 100 mg tablet 50 mg PO BID RF: 0 Stand-Alone Forms: [facility] Discharge Orders: Discharge Order (Routine); Ordered 10/15/18 Ordered By: Lul Oshea Admission Data Admit Date/Time: 10/11/18 17:43 Attending Provider: Lul Oshea Admit Provider: Brandin Anglin Primary Care Provider: Lora Carvalho Other Providers: Nupur Sargent Mark Service: Telemetry Other Interventions: Discharge Summary Assessment (RN) Last Done: 10/15/18 13:31 DC Date/Time DO NOT enter until pt leaves facility: 10/15/18 13:45
--- NOTE | 2019-01-07 16:33 | Surgery Consultation ---
Date of Consultation January 07, 2019 Assessment & Plan (1) Abdominal distention: History of chronic pseudo-obstructions and constipation on Linzess and Miralax, follows with [facility] 10/13 showing improved colonic distention at 11.6 cm compared to 14 cm on 10/12/18 Per nursing staff, bowel movements last night Volvulus is not likely No evidence of peritonitis no indication for surgical intervention at this time Plan: Continue current bowel regimen recommended by GI continue medical management Our services signing off, thank you for involving us in the care of this patient DR. Shaw has seen and examined pt, agrees with above 01/07/2019 4:48PM pt is a 73 year-old female who was dx proctitis, IMP: proctitis, recommend: medical treatment, GI consult, no surgical intervention now will F/U George, (2) Proctitis: History of Present Illness Attending Physician: History of Present Illness General Chief complaint: Lethargic Time Seen by Provider: 01/07/19 11:33 History of Present Illness Provider complaint: lethargy Onset (ago): hour(s) 2 Pain Consistency: + other (episode) Quality: + other (lethargy) Associated symptoms: + cough, + diaphoresis and + other (runny nose, sleeping more than usual) Treatments prior to arrival: none The patient is an intellectually disabled 73 year old female who presents to the ED with an episode of lethargy starting 2 hours ago. The patients helper states that the patient has had frequent UTIs that she is taking Ciprofloxacin for. Per helper, the patient was sitting on the toilet passing a bowel movement when this episode began. The patients helper states that the patient became severely diaphoretic during this episode. Per helper, the patient has had a runny nose, mild cough and has been sleeping more than usual. The patients helper states that the patient has not had any treatments prior to arrival. I ( Ronda Morgan MD ) got a call for consult proctitis, I reviewed pt's H/P with ER nurse at bedside, pt is comfortable on the bed, no nausea, no vomiting, no fever. pt was admitted to hospital on 2018 for chronic psudo- obstruction on colon, I reviewed CT scan ( abd + pelvis)IMPRESSION: 1. Distended rectum with circumferential wall thickening consistent with proctitis, likely on an infectious or inflammatory basis. No bowel obstruction. 2. No convincing evidence of appendicitis given the normal appendiceal diameter and absence of significant periappendiceal fat infiltration. Correlate clinically to ensure the absence of right lower quadrant pain. 3. Numerous cast like bladder calculi. 4. Chronic fibrotic changes at the lung bases. 5. Multiple chronic mild compression deformities in the setting of osteopenia. Allergies Allergy/AdvReac Type Severity Reaction Status Date / Time No Known Allergies Allergy Unknown Verified 06/11/18 08:17 Home Medications Home Medications Medication Instructions Recorded Confirmed Type multivitamin [Multiple Vitamins] 1 tab PO QAM #0 02/27/11 01/07/19 History acetaminophen 650 mg PO Q4 PRN #0 MDD 3gm/24hr 09/09/11 01/07/19 History carbamazepine [Carbatrol] 300 mg PO BID #0 06/29/12 01/07/19 History calcium carbonate [Oyster Shell 1 tab PO HS #0 11/29/12 01/07/19 History Calcium 500] Aloe [place] 1 applic TOPICAL BID #0 11/11/14 01/07/19 History Prolia 60 mg SUBCUT UD #0 07/17/17 01/07/19 History Robitussin Cough-Chest Mariano DM 10 ml PO Q4H PRN #0 07/17/17 01/07/19 History aspirin 81 mg PO QAM #0 07/17/17 01/07/19 History hydrocortisone [Anusol-HC] 1 applic NE BID PRN 7 Days #30 g 07/17/17 01/07/19 History levothyroxine 100 mcg PO QAM #0 07/17/17 01/07/19 History methenamine hippurate 1 g PO BID #0 07/17/17 01/07/19 History metronidazole [Metrogel] 1 applic TOPICAL DAILY #0 07/17/17 01/07/19 History lamotrigine [Lamictal] 300 mg PO BID 06/11/18 01/07/19 History linaclotide 290 mcg PO QAM 06/11/18 01/07/19 History polyethylene glycol 3350 [Miralax] 17 g PO BID 06/11/18 01/07/19 History fluticasone propionate 2 spray INTRANASAL DAILY 10/11/18 01/07/19 History lamotrigine 50 mg PO BID 10/11/18 01/07/19 History levetiracetam 750 mg PO BID 10/11/18 01/07/19 History nitrofurantoin monohyd/m-cryst 100 mg PO Q12H 01/07/19 01/07/19 History [Macrobid] Patient History Medical History Proctitis Cerebral palsy (Chronic) History of recurrent UTI (urinary tract infection) (Chronic) Chronic indwelling Alvarado catheter (Chronic) Seizure disorder (Chronic) Intellectual disability (Chronic) History of DVT (deep vein thrombosis) (Chronic) "2002- right lower extremity, completed Coumadin therapy" On 01/30/15 10:26 Francine Mckeon wrote "2002- right lower extremity" Hypothyroidism (Chronic) Pulmonary fibrosis (Chronic) Alvarado catheter in place (Chronic) Colon abnormality (Chronic) Family History Mother Hypertension Father Heart disease Grandmother Cancer Social History Preferred Language: Macedonian Communication Ability: Impaired Communication Ability Comment: speaks some words, able to mkae needs known Unarmed Security Guard Required: No Beliefs That Will Affect Care: None marital status: Single Current Living Situation: Personal Care Facility Current Living Situation Comment: [facility] home Other Information That Helps Us Care for You: No Feels Safe at Home: Yes Smoking Status: Never smoker Do You Dip or Chew Tobacco: No Hx Alcohol Use: No Hx Substance Use: No Review of Systems Review of Systems: All systems reviewed & are unremarkable except as noted in HPI & below Respiratory: pulmonary fibrosis Cardiovascular: Additional Comments: DVT Gastrointestinal: abdominal distend, chronic pseudo- obstruction on colon, chronic constipation Neurologic: Cerebral palsy Endocrine: hypothyroidism Physical Exam Constitutional: WD/WN, vitals as above ENMT: external ear and nose normal, oropharynx normal Neck: trachea midline, no thyromegaly Respiratory: normal respiratory effort, lungs clear to auscultation Cardiovascular: RRR, no murmur, no edema Rate/Rhythm: regular rate and regular rhythm Gastrointestinal (Abdomen): Percussion/Palpation: abdomen soft no hernia, no mass, unsure distend or not, no comparison, BS +, no guarding, no rigid Musculoskeletal: no edema on bilt legs Neurologic: awake Psychiatric: pt open her eyes when call pt, Results & Data Laboratory Results Lab Results 10/11/18 10/11/18 10/11/18 Range/Units 12:55 13:06 13:10 WBC 6.36 (4.8-10.8) K/uL RBC 4.12 L (4.2-5.4) M/uL Hgb 12.5 (12.0-16.0) g/dL Hct 38.0 (37-47) % MCV 92.2 (80-100) fL MCH 30.3 (25-34) pg MCHC 32.9 (32-36) g/dL RDW Std Deviation 44.0 (36.4-46.3) fL RDW Coeff of Db 13.1 (11.5-14.5) % Plt Count 263 (130-400) K/uL MPV 9.6 (7.4-10.4) fL Immature Gran % (Auto) 0.2 % Neut % (Auto) 64.3 % Lymph % (Auto) 22.2 % [place] % (Auto) 10.1 % Eos % (Auto) 2.7 % Baso % (Auto) 0.5 % Immature Gran # (Auto) 0.01 (0.00-0.02) K/uL Neut # (Auto) 4.10 (1.4-6.5) K/uL Lymph # (Auto) 1.41 (1.2-3.4) K/uL [place] # (Auto) 0.64 H (0.11-0.59) K/uL Eos # (Auto) 0.17 (0-0.5) K/uL Baso # (Auto) 0.03 (0-0.2) K/uL PT (9.0-12.0) Seconds INR (0.9-1.1) Sodium 129 L (136-145) mmol/L Potassium (3.5-5.1) mmol/L Chloride 99 (98-107) mmol/L Carbon Dioxide 27 (21-32) mmol/L Anion Gap 3.0 (3-11) BUN 25 H (7-18) mg/dl Creatinine 0.98 (0.6-1.2) mg/dl Est Cr Clr Drug Dosing Not Reportable Est GFR ( Amer) 66.3 Est GFR (Non-Af Amer) 57.2 BUN/Creatinine Ratio 25.9 H (10-20) Glucose 102 H (70-99) mg/dl Calcium 10.1 (8.5-10.1) mg/dl Total Bilirubin 0.5 (0.2-1) mg/dl AST (15-37) U/L ALT 30 (12-78) U/L Alkaline Phosphatase 126 H (45-117) U/L Troponin I < 0.015 (0-0.045) ng/ml Total Protein 8.2 (6.4-8.2) gm/dl Albumin 3.6 (3.4-5.0) gm/dl Globulin 4.6 H (2.5-4.0) gm/dl Albumin/Globulin Ratio 0.8 L (0.9-2) Lipase 217 (73-393) U/L TSH (0.300-4.500) uIu/ml Urine Color Dark Yellow Urine Appearance Turbid H (Clear) Urine pH 5.0 (4.5-7.5) Ur Specific [place] 1.023 (1.000-1.030) Urine Protein 2+ H (Negative) Urine Glucose (UA) Negative (Negative) Urine Ketones Trace H (Negative) Urine Blood 1+ H (Negative) Urine Nitrite Negative (Negative) Urine Bilirubin Negative (Negative) Urine Urobilinogen Negative (Negative) Ur Leukocyte Esterase 3+ H (Negative) Urine WBC (Auto) >30 H (0-5) /hpf Urine RBC (Auto) 0-4 (0-4) /hpf U Hyaline Cast (Auto) 0 (0-5) /lpf U Epithel Cells (Auto) >30 H (0-5) /lpf Urine Bacteria (Auto) 1+ H (Negative) Urine Crystals Not Reportable Calcium Oxalate Crystal Present H (None Prsent) Urine Yeast Budding H (None Prsent) Urine Osmolality (500-800) mOsm/kg Carbamazepine (4-12) mcg/ml 10/11/18 10/12/18 10/12/18 Range/Units 13:53 09:22 09:22 WBC 3.98 L (4.8-10.8) K/uL RBC 3.97 L (4.2-5.4) M/uL Hgb 11.8 L (12.0-16.0) g/dL Hct 35.6 L (37-47) % MCV 89.7 (80-100) fL MCH 29.7 (25-34) pg MCHC 33.1 (32-36) g/dL RDW Std Deviation 42.8 (36.4-46.3) fL RDW Coeff of Db 13.0 (11.5-14.5) % Plt Count 253 (130-400) K/uL MPV 9.4 (7.4-10.4) fL Immature Gran % (Auto) % Neut % (Auto) % Lymph % (Auto) % [place] % (Auto) % Eos % (Auto) % Baso % (Auto) % Immature Gran # (Auto) (0.00-0.02) K/uL Neut # (Auto) (1.4-6.5) K/uL Lymph # (Auto) (1.2-3.4) K/uL [place] # (Auto) (0.11-0.59) K/uL Eos # (Auto) (0-0.5) K/uL Baso # (Auto) (0-0.2) K/uL PT (9.0-12.0) Seconds INR (0.9-1.1) Sodium 139 D (136-145) mmol/L Potassium 4.1 3.7 (3.5-5.1) mmol/L Chloride 108 H (98-107) mmol/L Carbon Dioxide 27 (21-32) mmol/L Anion Gap 4.0 (3-11) BUN 10 D (7-18) mg/dl Creatinine 0.50 L D (0.6-1.2) mg/dl Est Cr Clr Drug Dosing 85.0 Est GFR ( Amer) 111.3 Est GFR (Non-Af Amer) 96.0 BUN/Creatinine Ratio 19.9 (10-20) Glucose 107 H (70-99) mg/dl Calcium 9.4 (8.5-10.1) mg/dl Total Bilirubin (0.2-1) mg/dl AST 20 (15-37) U/L ALT (12-78) U/L Alkaline Phosphatase (45-117) U/L Troponin I (0-0.045) ng/ml Total Protein (6.4-8.2) gm/dl Albumin (3.4-5.0) gm/dl Globulin (2.5-4.0) gm/dl Albumin/Globulin Ratio (0.9-2) Lipase (73-393) U/L TSH (0.300-4.500) uIu/ml Urine Color Urine Appearance (Clear) Urine pH (4.5-7.5) Ur Specific [place] (1.000-1.030) Urine Protein (Negative) Urine Glucose (UA) (Negative) Urine Ketones (Negative) Urine Blood (Negative) Urine Nitrite (Negative) Urine Bilirubin (Negative) Urine Urobilinogen (Negative) Ur Leukocyte Esterase (Negative) Urine WBC (Auto) (0-5) /hpf Urine RBC (Auto) (0-4) /hpf U Hyaline Cast (Auto) (0-5) /lpf U Epithel Cells (Auto) (0-5) /lpf Urine Bacteria (Auto) (Negative) Urine Crystals Calcium Oxalate Crystal (None Prsent) Urine Yeast (None Prsent) Urine Osmolality (500-800) mOsm/kg Carbamazepine (4-12) mcg/ml 10/12/18 10/12/18 10/13/18 Range/Units 09:22 16:00 07:17 WBC 5.48 (4.8-10.8) K/uL RBC 3.93 L (4.2-5.4) M/uL Hgb 11.6 L (12.0-16.0) g/dL Hct 35.1 L (37-47) % MCV 89.3 (80-100) fL MCH 29.5 (25-34) pg MCHC 33.0 (32-36) g/dL RDW Std Deviation 42.7 (36.4-46.3) fL RDW Coeff of Db 13.0 (11.5-14.5) % Plt Count 251 (130-400) K/uL MPV 9.9 (7.4-10.4) fL Immature Gran % (Auto) % Neut % (Auto) % Lymph % (Auto) % [place] % (Auto) % Eos % (Auto) % Baso % (Auto) % Immature Gran # (Auto) (0.00-0.02) K/uL Neut # (Auto) (1.4-6.5) K/uL Lymph # (Auto) (1.2-3.4) K/uL [place] # (Auto) (0.11-0.59) K/uL Eos # (Auto) (0-0.5) K/uL Baso # (Auto) (0-0.2) K/uL PT 11.1 (9.0-12.0) Seconds INR 1.1 (0.9-1.1) Sodium (136-145) mmol/L Potassium (3.5-5.1) mmol/L Chloride (98-107) mmol/L Carbon Dioxide (21-32) mmol/L Anion Gap (3-11) BUN (7-18) mg/dl Creatinine (0.6-1.2) mg/dl Est Cr Clr Drug Dosing Est GFR ( Amer) Est GFR (Non-Af Amer) BUN/Creatinine Ratio (10-20) Glucose (70-99) mg/dl Calcium (8.5-10.1) mg/dl Total Bilirubin (0.2-1) mg/dl AST (15-37) U/L ALT (12-78) U/L Alkaline Phosphatase (45-117) U/L Troponin I (0-0.045) ng/ml Total Protein (6.4-8.2) gm/dl Albumin (3.4-5.0) gm/dl Globulin (2.5-4.0) gm/dl Albumin/Globulin Ratio (0.9-2) Lipase (73-393) U/L TSH (0.300-4.500) uIu/ml Urine Color Urine Appearance (Clear) Urine pH (4.5-7.5) Ur Specific [place] (1.000-1.030) Urine Protein (Negative) Urine Glucose (UA) (Negative) Urine Ketones (Negative) Urine Blood (Negative) Urine Nitrite (Negative) Urine Bilirubin (Negative) Urine Urobilinogen (Negative) Ur Leukocyte Esterase (Negative) Urine WBC (Auto) (0-5) /hpf Urine RBC (Auto) (0-4) /hpf U Hyaline Cast (Auto) (0-5) /lpf U Epithel Cells (Auto) (0-5) /lpf Urine Bacteria (Auto) (Negative) Urine Crystals Calcium Oxalate Crystal (None Prsent) Urine Yeast (None Prsent) Urine Osmolality 529 (500-800) mOsm/kg Carbamazepine (4-12) mcg/ml 10/13/18 10/14/18 10/14/18 Range/Units 07:17 07:46 07:46 WBC 4.28 L (4.8-10.8) K/uL RBC 4.11 L (4.2-5.4) M/uL Hgb 12.3 (12.0-16.0) g/dL Hct 37.1 (37-47) % MCV 90.3 (80-100) fL MCH 29.9 (25-34) pg MCHC 33.2 (32-36) g/dL RDW Std Deviation 43.2 (36.4-46.3) fL RDW Coeff of Db 13.1 (11.5-14.5) % Plt Count 240 (130-400) K/uL MPV 9.4 (7.4-10.4) fL Immature Gran % (Auto) 0.2 % Neut % (Auto) 37.0 % Lymph % (Auto) 47.2 % [place] % (Auto) 7.9 % Eos % (Auto) 7.0 % Baso % (Auto) 0.7 % Immature Gran # (Auto) 0.01 (0.00-0.02) K/uL Neut # (Auto) 1.58 (1.4-6.5) K/uL Lymph # (Auto) 2.02 (1.2-3.4) K/uL [place] # (Auto) 0.34 (0.11-0.59) K/uL Eos # (Auto) 0.30 (0-0.5) K/uL Baso # (Auto) 0.03 (0-0.2) K/uL PT (9.0-12.0) Seconds INR (0.9-1.1) Sodium 133 L 137 (136-145) mmol/L Potassium 4.1 4.4 (3.5-5.1) mmol/L Chloride 103 106 (98-107) mmol/L Carbon Dioxide 24 27 (21-32) mmol/L Anion Gap 6.0 4.0 (3-11) BUN 5 L D 4 L (7-18) mg/dl Creatinine 0.45 L 0.48 L (0.6-1.2) mg/dl Est Cr Clr Drug Dosing 96.3 89.8 Est GFR ( Amer) 115.2 112.8 Est GFR (Non-Af Amer) 99.4 97.3 BUN/Creatinine Ratio 11.5 7.2 L (10-20) Glucose 89 92 (70-99) mg/dl Calcium 8.6 8.7 (8.5-10.1) mg/dl Total Bilirubin (0.2-1) mg/dl AST (15-37) U/L ALT (12-78) U/L Alkaline Phosphatase (45-117) U/L Troponin I (0-0.045) ng/ml Total Protein (6.4-8.2) gm/dl Albumin (3.4-5.0) gm/dl Globulin (2.5-4.0) gm/dl Albumin/Globulin Ratio (0.9-2) Lipase (73-393) U/L TSH 2.050 (0.300-4.500) uIu/ml Urine Color Urine Appearance (Clear) Urine pH (4.5-7.5) Ur Specific [place] (1.000-1.030) Urine Protein (Negative) Urine Glucose (UA) (Negative) Urine Ketones (Negative) Urine Blood (Negative) Urine Nitrite (Negative) Urine Bilirubin (Negative) Urine Urobilinogen (Negative) Ur Leukocyte Esterase (Negative) Urine WBC (Auto) (0-5) /hpf Urine RBC (Auto) (0-4) /hpf U Hyaline Cast (Auto) (0-5) /lpf U Epithel Cells (Auto) (0-5) /lpf Urine Bacteria (Auto) (Negative) Urine Crystals Calcium Oxalate Crystal (None Prsent) Urine Yeast (None Prsent) Urine Osmolality (500-800) mOsm/kg Carbamazepine (4-12) mcg/ml 10/14/18 Range/Units 07:46 WBC (4.8-10.8) K/uL RBC (4.2-5.4) M/uL Hgb (12.0-16.0) g/dL Hct (37-47) % MCV (80-100) fL MCH (25-34) pg MCHC (32-36) g/dL RDW Std Deviation (36.4-46.3) fL RDW Coeff of Db (11.5-14.5) % Plt Count (130-400) K/uL MPV (7.4-10.4) fL Immature Gran % (Auto) % Neut % (Auto) % Lymph % (Auto) % [place] % (Auto) % Eos % (Auto) % Baso % (Auto) % Immature Gran # (Auto) (0.00-0.02) K/uL Neut # (Auto) (1.4-6.5) K/uL Lymph # (Auto) (1.2-3.4) K/uL [place] # (Auto) (0.11-0.59) K/uL Eos # (Auto) (0-0.5) K/uL Baso # (Auto) (0-0.2) K/uL PT (9.0-12.0) Seconds INR (0.9-1.1) Sodium (136-145) mmol/L Potassium (3.5-5.1) mmol/L Chloride (98-107) mmol/L Carbon Dioxide (21-32) mmol/L Anion Gap (3-11) BUN (7-18) mg/dl Creatinine (0.6-1.2) mg/dl Est Cr Clr Drug Dosing Est GFR ( Amer) Est GFR (Non-Af Amer) BUN/Creatinine Ratio (10-20) Glucose (70-99) mg/dl Calcium (8.5-10.1) mg/dl Total Bilirubin (0.2-1) mg/dl AST (15-37) U/L ALT (12-78) U/L Alkaline Phosphatase (45-117) U/L Troponin I (0-0.045) ng/ml Total Protein (6.4-8.2) gm/dl Albumin (3.4-5.0) gm/dl Globulin (2.5-4.0) gm/dl Albumin/Globulin Ratio (0.9-2) Lipase (73-393) U/L TSH (0.300-4.500) uIu/ml Urine Color Urine Appearance (Clear) Urine pH (4.5-7.5) Ur Specific [place] (1.000-1.030) Urine Protein (Negative) Urine Glucose (UA) (Negative) Urine Ketones (Negative) Urine Blood (Negative) Urine Nitrite (Negative) Urine Bilirubin (Negative) Urine Urobilinogen (Negative) Ur Leukocyte Esterase (Negative) Urine WBC (Auto) (0-5) /hpf Urine RBC (Auto) (0-4) /hpf U Hyaline Cast (Auto) (0-5) /lpf U Epithel Cells (Auto) (0-5) /lpf Urine Bacteria (Auto) (Negative) Urine Crystals Calcium Oxalate Crystal (None Prsent) Urine Yeast (None Prsent) Urine Osmolality (500-800) mOsm/kg Carbamazepine 10.0 (4-12) mcg/ml Diagnostic Findings CT abd pelvis IV con only CLINICAL HISTORY: 73 years-old Female presenting with abd distension fever. TECHNIQUE: Multidetector CT of the abdomen and pelvis was performed after the administration of intravenous contrast. IV contrast: 94 mL of Optiray 320. One or more dose lowering techniques were used consistent with the principles of ALARA (as low as reasonably achievable), including automatic exposure control, mA or kV adjustment to individual patient size, and/or use of iterative reconstruction. COMPARISON: 10/11/2018. CT DOSE (mGy.cm): The estimated cumulative dose is 1457.65. FINDINGS: Derrickman Helper topogram: Unremarkable. Lung bases: Multichamber enlargement of the heart. Coronary artery, aortic valve, and mitral annular calcification. No pericardial or pleural effusion. Extensive cystic change and reticular opacities at the lung bases greater on the right. Bronchiectasis and a lesser degree of fibrotic changes on the left. Liver: Congenital hypoplasia of the medial segments of the left hepatic lobe. No focal lesion. Patent hepatic vasculature. Biliary: No intrahepatic or extrahepatic biliary ductal dilatation. Normal gallbladder. Pancreas: Normal. Spleen: Deformity of the spleen may suggest prior trauma or infarct. Adrenal glands: Normal. Kidneys and ureters: Normal. No hydronephrosis. Bladder: Decompressed with a Alvarado catheter. Double hyperdensities in the bladder lumen as on prior exam, presumably cast-like bladder calculi. Pelvic organs: Poorly visualized uterus. Bowel: Markedly distended rectum with circumferential wall thickening. Sigmoid colon is distended with gas. Mild wall thickening of the cecum and a limited portion. The appendix contains gas and fluid and is normal in diameter. An air- fluid level may be present in the appendix (series 5 image [id number]), which is equivocal for appendicitis. No periappendiceal fat infiltration. No bowel obstruction. Peritoneal cavity: No free fluid or intraperitoneal gas. Lymph nodes: No enlarged lymph nodes in the abdomen or pelvis. Vasculature: Atherosclerosis of the normal caliber abdominal aorta. IVC patent. Abdominal wall: Diastasis of the rectus abdominis. Musculoskeletal: Right hip arthroplasty. Degenerative changes of the spine. Mild compression deformities of L2, T11, T12. These are unchanged from prior. Osteopenia.
== END 2018-10-15 13:45 | disposition home health service (06) | DRG 393 ==
LOC: ED 12:08 → SUATTDRO 17:43 → 2W 17:43
DX: K63.89 Other specified diseases of intestine; E86.0 Dehydration; M79.604 Pain in right leg; K59.8 Other specified functional intestinal disorders; Z79.899 Other long term (current) drug therapy; F79 Unspecified intellectual disabilities; Z79.82 Long term (current) use of aspirin; R33.9 Retention of urine, unspecified; K59.09 Other constipation; E03.9 Hypothyroidism, unspecified; J84.10 Pulmonary fibrosis, unspecified; G40.909 Epilepsy, unspecified, not intractable, without status epilepticus; M79.605 Pain in left leg; E22.2 Syndrome of inappropriate secretion of antidiuretic hormone; G93.41 Metabolic encephalopathy

== ENCOUNTER 2019-01-07 11:06 | Observation (INO) ==
[2019-01-07] MEDS ORDERED: SODIUM CHLORIDE 0.9% 1000ML 1,000 ML IV ONE (11:47)
[2019-01-07 12:39] LABS: Basophils # (auto) 0.04 K/uL (0-0.2); Basophils % (auto) 0.9 %; Eosinophils # (auto) 0.24 K/uL (0-0.5); Eosinophils % (auto) 5.1 %; Hemoglobin 12.6 g/dL (12.0-16.0); Immature Granulocytes # (auto) 0.01 K/uL (0.00-0.02); Immature Granulocytes % (auto) 0.2 %; Lymphocytes # (auto) 1.37 K/uL (1.2-3.4); Lymphocytes % (auto) 29.2 %; Mean Corpuscular Hgb Conc 33.2 g/dL (32-36); Mean Corpuscular Volume 91.6 fL (80-100); Monocytes # (auto) 0.55 K/uL (0.11-0.59); Monocytes % (auto) 11.7 %; Neutrophils # (auto) 2.48 K/uL (1.4-6.5); Neutrophils % (auto) 52.9 %; Platelet Count 253 K/uL (130-400); RDW Coefficient of Variation 13.4 % (11.5-14.5); RDW Standard Deviation 44.7 fL (36.4-46.3); Red Blood Count 4.15 M/uL (4.2-5.4); White Blood Count 4.69 K/uL (4.8-10.8)
--- NOTE | 2019-01-07 12:49 | XRay Report ---
XR chest 1V portable CLINICAL HISTORY: Sepsis COMPARISON STUDY: 10/11/2018 FINDINGS: The study is limited from a technical standpoint. The patient is rotated and listing to the right. The heart is borderline enlarged. There are interstitial fibrotic changes similar to the prio r study. There is no lobar consolidation.[ IMPRESSION: 1. Stable findings 2. Stable asymmetric interstitial lung disease. 3. Rotated study Electronically signed by: Ivan Fam M.D. 01/07/2019 12:48 PM
[2019-01-07 12:51] LABS: INR 1.1 (0.9-1.1); Partial Thromboplastin Ratio 0.9; Partial Thromboplastin Time 23.5 Seconds (21.0-31.0)
[2019-01-07 13:02] LABS: Blood Urea Nitrogen 17 mg/dl (7-18); Carbon Dioxide 26 mmol/L (21-32); Chloride 103 mmol/L (98-107); Potassium 3.6 mmol/L (3.5-5.1); Sodium 135 mmol/L (136-145)
[2019-01-07 13:03] LABS: Alanine Aminotransferase 24 U/L (12-78); Albumin Level 3.5 gm/dl (3.4-5.0); Aspartate Aminotransferase 17 U/L (15-37); BUN Creatinine Ratio 24.2 (10-20); Bilirubin Direct 0.1 mg/dl (0-0.2); Calcium 9.3 mg/dl (8.5-10.1); Est GFR (African American) 97.9; Est GFR (Non-African American) 84.5; Glucose 83 mg/dl (70-99); Magnesium 1.8 mg/dl (1.8-2.4)
[2019-01-07 13:14] LABS: Albumin Globulin Ratio 0.8 (0.9-2); Alkaline Phosphatase 122 U/L (45-117); Bilirubin,Total 0.4 mg/dl (0.2-1); Globulin 4.2 gm/dl (2.5-4.0); Phosphorus 3.1 mg/dl (2.5-4.9); Total Protein 7.7 gm/dl (6.4-8.2)
[2019-01-07] MEDS ORDERED: IOVERSOL 100ml IV PRN (13:35)
--- NOTE | 2019-01-07 13:51 | CT Scan Report ---
CT head/brain wo con CLINICAL HISTORY: ams COMPARISON STUDY: 07/17/2017 TECHNIQUE: Axial CT of the brain is performed from the vertex to the skull base. IV contrast was not administered for this examination. A dose lowering technique was utilized adhering to the principles of ALARA. CT DOSE: 1457.65 mGy.cm FINDINGS: No intra or extra-axial mass lesions are visualized. There is no CT evidence of acute cortical infarc tion. There is no evidence of midline shift. There is no acute hemorrhage. No calvarial fractures ar e visualized. There is apparent absence of the corpus callosum and septum pellucidum. There is a dilated lateral ve ntricle unchanged from the preceding study. There is stable cerebellar atrophy. There is a sphenoid sinus air-fluid level, smaller than on the preceding study. IMPRESSION: 1. 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 No acute intracranial findings Electronically signed by: Ivan Fam M.D. 01/07/2019 1:50 PM
--- NOTE | 2019-01-07 13:56 | CT Scan Report ---
CT abd pelvis IV con only CLINICAL HISTORY: 73 years-old Female presenting with abd distension fever. TECHNIQUE: Multidetector CT of the abdomen and pelvis was performed after the administration of intra venous contrast. IV contrast: 94 mL of Optiray 320. One or more dose lowering techniques were used co nsistent with the principles of ALARA (as low as reasonably achievable), including automatic exposure control, mA or kV adjustment to individual patient size, and/or use of iterative reconstruction. COMPARISON: 10/11/2018. CT DOSE (mGy.cm): The estimated cumulative dose is 1457.65. FINDINGS: Box Toe Buffer topogram: Unremarkable. Lung bases: Multichamber enlargement of the heart. Coronary artery, aortic valve, and mitral annular calcification. No pericardial or pleural effusion. Extensive cystic change and reticular opacities at the lung bases greater on the right. Bronchiectasis and a lesser degree of fibrotic changes on the l eft. Liver: Congenital hypoplasia of the medial segments of the left hepatic lobe. No focal lesion. Patent hepatic vasculature. Biliary: No intrahepatic or extrahepatic biliary ductal dilatation. Normal gallbladder. Pancreas: Normal. Spleen: Deformity of the spleen may suggest prior trauma or infarct. Adrenal glands: Normal. Kidneys and ureters: Normal. No hydronephrosis. Bladder: Decompressed with a Alvarado catheter. Double hyperdensities in the bladder lumen as on prior e xam, presumably cast-like bladder calculi. Pelvic organs: Poorly visualized uterus. Bowel: Markedly distended rectum with circumferential wall thickening. Sigmoid colon is distended wit h gas. Mild wall thickening of the cecum and a limited portion. The appendix contains gas and fluid a nd is normal in diameter. An air-fluid level may be present in the appendix (series 5 image 267), whi ch is equivocal for appendicitis. No periappendiceal fat infiltration. No bowel obstruction. Peritoneal cavity: No free fluid or intraperitoneal gas. Lymph nodes: No enlarged lymph nodes in the abdomen or pelvis. Vasculature: Atherosclerosis of the normal caliber abdominal aorta. IVC patent. Abdominal wall: Diastasis of the rectus abdominis. Musculoskeletal: Right hip arthroplasty. Degenerative changes of the spine. Mild compression deformit ies of L2, T11, T12. These are unchanged from prior. Osteopenia. IMPRESSION: 1. Distended rectum with circumferential wall thickening consistent with proctitis, likely on an inf ectious or inflammatory basis. No bowel obstruction. 2. No convincing evidence of appendicitis given the normal appendiceal diameter and absence of signi ficant periappendiceal fat infiltration. Correlate clinically to ensure the absence of right lower qu adrant pain. 3. Numerous cast like bladder calculi. 4. Chronic fibrotic changes at the lung bases. 5. Multiple chronic mild compression deformities in the setting of osteopenia. Electronically signed by: Lopez Weiss M.D. 01/07/2019 1:55 PM
--- NOTE | 2019-01-07 15:02 | Emergency Department Note ---
Entered by Allison Borden acting as a scribe for Russell Brink MD History of Present Illness General Chief complaint: Lethargic Time Seen by Provider: 01/07/19 11:33 History of Present Illness Provider complaint: lethargy Onset (ago): hour(s) 2 Pain Consistency: + other (episode) Quality: + other (lethargy) Associated symptoms: + cough, + diaphoresis and + other (runny nose, sleeping more than usual) Treatments prior to arrival: none The patient is an intellectually disabled 73 year old female who presents to the ED with an episode of lethargy starting 2 hours ago. The patients helper states that the patient has had frequent UTIs that she is taking Ciprofloxacin for. Per helper, the patient was sitting on the toilet passing a bowel movement when this episode began. The patients helper states that the patient became severely diaphoretic during this episode. Per helper, the patient has had a runny nose, mild cough and has been sleeping more than usual. The patients helper states that the patient has not had any treatments prior to arrival. Home Medications Home Medications Medication Instructions Recorded Confirmed Type multivitamin [Multiple Vitamins] 1 tab PO QAM #0 02/27/11 01/07/19 History acetaminophen 650 mg PO Q4 PRN #0 MDD 3gm/24hr 09/09/11 01/07/19 History carbamazepine [Carbatrol] 300 mg PO BID #0 06/29/12 01/07/19 History calcium carbonate [Oyster [place] 1 tab PO HS #0 11/29/12 01/07/19 History Calcium 500] Aloe [place] 1 applic TOPICAL BID #0 11/11/14 01/07/19 History Prolia 60 mg SUBCUT UD #0 07/17/17 01/07/19 History Robitussin Cough-Chest [place] DM 10 ml PO Q4H PRN #0 07/17/17 01/07/19 History aspirin 81 mg PO QAM #0 07/17/17 01/07/19 History hydrocortisone [Anusol-HC] 1 applic ND BID PRN 7 Days #30 g 07/17/17 01/07/19 History levothyroxine 100 mcg PO QAM #0 07/17/17 01/07/19 History methenamine hippurate 1 g PO BID #0 07/17/17 01/07/19 History metronidazole [Metrogel] 1 applic TOPICAL DAILY #0 07/17/17 01/07/19 History lamotrigine [Lamictal] 300 mg PO BID 06/11/18 01/07/19 History linaclotide 290 mcg PO QAM 06/11/18 01/07/19 History polyethylene glycol 3350 [Miralax] 17 g PO BID 06/11/18 01/07/19 History fluticasone propionate 2 spray INTRANASAL DAILY 10/11/18 01/07/19 History lamotrigine 50 mg PO BID 10/11/18 01/07/19 History levetiracetam 750 mg PO BID 10/11/18 01/07/19 History nitrofurantoin monohyd/m-cryst 100 mg PO Q12H 01/07/19 01/07/19 History [Macrobid] Allergies Allergy/AdvReac Type Severity Reaction Status Date / Time No Known Allergies Allergy Unknown Verified 06/11/18 08:17 Past Med/Surg History Medical History Proctitis Cerebral palsy (Chronic) History of recurrent UTI (urinary tract infection) (Chronic) Chronic indwelling Rodriguez catheter (Chronic) Seizure disorder (Chronic) Intellectual disability (Chronic) History of DVT (deep vein thrombosis) (Chronic) "2002- right lower extremity, completed Coumadin therapy" On 01/30/15 10:26 Francine Linda wrote "2002- right lower extremity" Hypothyroidism (Chronic) Pulmonary fibrosis (Chronic) Rodriguez catheter in place (Chronic) Colon abnormality (Chronic) Surgical History History of cystoscopy (Chronic) History of total right hip arthroplasty (Chronic) Family History Mother Hypertension Father Heart disease Grandmother Cancer Social History Preferred Language: Greek Communication Ability: Impaired Communication Ability Comment: speaks some words, able to mkae needs known Borematic Operator Required: No Beliefs That Will Affect Care: None marital status: Single Current Living Situation: Personal Care Facility Current Living Situation Comment: [facility] home Other Information That Helps Us Care for You: No Feels Safe at Home: Yes Smoking Status: Never smoker Do You Dip or Chew Tobacco: No Hx Alcohol Use: No Hx Substance Use: No Review of Systems See HPI for pertinent positives & negatives. and A total of 10 systems reviewed and were otherwise negative Physical Exam Vital Signs Vital Signs - 24 hr 01/07/19 11:14 01/07/19 11:21 01/07/19 11:29 Temperature 36.5 C Temperature Source Axillary Sepsis Recent Fever Within 48 Hours No Sepsis New/Unexplained Change in Mental Status No Sepsis Action Taken by Nursing No Action Required Pulse Rate 68 66 76 Pulse Rate from SpO2 Sensor 67 66 Respiratory Rate 22 21 23 Respiratory Effort / Characteristics Non-Labored Spontaneous Respiratory Depth Normal Respiratory Pattern Regular Blood Pressure 87/66 L 87/66 L Blood Pressure Mean 73 73 Pulse Oximetry 99 99 99 Oxygen Delivery Method Room Air 01/07/19 11:30 01/07/19 12:00 01/07/19 12:28 Temperature Temperature Source Sepsis Recent Fever Within 48 Hours Sepsis New/Unexplained Change in Mental Status Sepsis Action Taken by Nursing Pulse Rate 65 76 64 Pulse Rate from SpO2 Sensor 66 78 67 Respiratory Rate 14 20 17 Respiratory Effort / Characteristics Respiratory Depth Respiratory Pattern Blood Pressure 121/72 Blood Pressure Mean 88 Pulse Oximetry 99 100 100 Oxygen Delivery Method 01/07/19 12:29 01/07/19 12:30 01/07/19 12:31 Temperature Temperature Source Sepsis Recent Fever Within 48 Hours Sepsis New/Unexplained Change in Mental Status Sepsis Action Taken by Nursing Pulse Rate 68 74 67 Pulse Rate from SpO2 Sensor 66 73 67 Respiratory Rate 10 L 21 14 Respiratory Effort / Characteristics Respiratory Depth Respiratory Pattern Blood Pressure 160/76 H Blood Pressure Mean 104 Pulse Oximetry 99 99 99 Oxygen Delivery Method 01/07/19 13:00 01/07/19 13:01 01/07/19 13:44 Temperature Temperature Source Sepsis Recent Fever Within 48 Hours Sepsis New/Unexplained Change in Mental Status Sepsis Action Taken by Nursing Pulse Rate 73 69 85 Pulse Rate from SpO2 Sensor 73 68 76 Respiratory Rate 17 19 14 Respiratory Effort / Characteristics Respiratory Depth Respiratory Pattern Blood Pressure 161/87 H Blood Pressure Mean 111 Pulse Oximetry 99 99 99 Oxygen Delivery Method 01/07/19 14:00 01/07/19 14:01 01/07/19 14:30 Temperature Temperature Source Sepsis Recent Fever Within 48 Hours Sepsis New/Unexplained Change in Mental Status Sepsis Action Taken by Nursing Pulse Rate 71 74 78 Pulse Rate from SpO2 Sensor 79 75 82 Respiratory Rate 16 22 15 Respiratory Effort / Characteristics Respiratory Depth Respiratory Pattern Blood Pressure 140/127 H Blood Pressure Mean 131 Pulse Oximetry 100 100 99 Oxygen Delivery Method 01/07/19 15:00 01/07/19 15:30 01/07/19 15:31 Temperature Temperature Source Sepsis Recent Fever Within 48 Hours Sepsis New/Unexplained Change in Mental Status Sepsis Action Taken by Nursing Pulse Rate 64 68 67 Pulse Rate from SpO2 Sensor 64 73 68 Respiratory Rate 15 16 18 Respiratory Effort / Characteristics Respiratory Depth Respiratory Pattern Blood Pressure 153/95 H 151/76 H Blood Pressure Mean 114 101 Pulse Oximetry 99 99 100 Oxygen Delivery Method GENERAL: Awake, alert, chronically ill-appearing, in no distress HENT: Normocephalic, atraumatic. Oropharynx with dry mucous membranes and otherwise unremarkable. EYES: Normal conjunctiva. Sclera non-icteric. Right eye strabismus at baseline. NECK: Supple. No nuchal rigidity. FROM. No JVD. RESPIRATORY: Clear to auscultation bilaterally. CARDIAC: Regular rate, normal rhythm. Extremities warm and well perfused. Pulses equal. ABDOMEN: Abdomen distended, no tenderness to palpation. No rebound or guarding. No masses. RECTAL: Deferred. MUSCULOSKELETAL: Chest examination reveals no tenderness. The back is symmetrical on inspection without obvious abnormality. There is no CVA tenderness to palpation. No joint edema. LOWER EXTREMITIES: Calves are equal size bilaterally and non-tender. No edema. No discoloration. NEURO: Moving all extremities equally at baseline for her chronic contractures/immobility. Normal sensorium. No focal sensory or motor deficits noted. SKIN: No rash or jaundice noted. Course 1145: Past medical records reviewed. The patient was evaluated in room C10. A complete history and physical exam was performed. 1457: I discussed the laura's case with Dr. Aditya Mehta. He a grees that the patient should be admitted. 1504: I discussed the patient's case with [place]. She will evaluate the patient for further management. Consultations Consultation #1: I discussed the laura's case with Dr. Aditya Mehta. He agrees that the patient should be admitted. Time: 14:57 Consultation #2: I discussed the patient's case with [place]. She will evaluate the patient for further management. Time: 15:04 Administered Medications Miscellaneous (Order Awaiting Action) 1 ea N/A QS VIVIANE Stop: 02/06/19 17:29 Last Admin: 01/07/19 17:36 Dose: Not Given Documented by: [id number] Discontinued Medications Sodium Chloride (Nss 1000ml) 1,000 mls @ 999 mls/hr IV .Q1H1M ONE Stop: 01/07/19 12:47 Last Infusion: 01/07/19 13:23 Dose: 0 mls/hr Documented by: [id number] Admin: 01/07/19 12:20 Dose: 999 mls/hr Documented by: [id number] Ioversol (Optiray 320 100ml) 94 ml IV ONCE PRN PRN Reason: Interaction Checking Stop: 01/11/19 13:34 Last Admin: 01/07/19 13:36 Dose: 94 ml Documented by: [id number] Medical Decision Making Differential Diagnosis Differential diagnosis: Etiologies such as metabolic, infection, hypo/hyperglycemia, electrolyte ab normalities, cardiac sources, intracerebral event, toxicologic, neurologic, as well as others were entertained. Medical Records Attestation: I reviewed the patient's medical records. Home Medications Current Medication List: was personally reviewed by me Laboratory Data Attestation: I reviewed the patient's lab results. Result diagrams: 01/07/19 12:26 01/07/19 12:26 Lab Results 01/07/19 01/07/19 01/07/19 Range/Units 12:26 12:26 12:26 WBC 4.69 L (4.8-10.8) K/uL RBC 4.15 L (4.2-5.4) M/uL Hgb 12.6 (12.0-16.0) g/dL Hct 38.0 (37-47) % MCV 91.6 (80-100) fL MCH 30.4 (25-34) pg MCHC 33.2 (32-36) g/dL RDW Std Deviation 44.7 (36.4-46.3) fL RDW Coeff of Db 13.4 (11.5-14.5) % Plt Count 253 (130-400) K/uL MPV 10.0 (7.4-10.4) fL Immature Gran % (Auto) 0.2 % Neut % (Auto) 52.9 % Lymph % (Auto) 29.2 % Emanuel % (Auto) 11.7 % Eos % (Auto) 5.1 % Baso % (Auto) 0.9 % Immature Gran # (Auto) 0.01 (0.00-0.02) K/uL Neut # (Auto) 2.48 (1.4-6.5) K/uL Lymph # (Auto) 1.37 (1.2-3.4) K/uL Emanuel # (Auto) 0.55 (0.11-0.59) K/uL Eos # (Auto) 0.24 (0-0.5) K/uL Baso # (Auto) 0.04 (0-0.2) K/uL PT 11.0 (9.0-12.0) Seconds INR 1.1 (0.9-1.1) APTT 23.5 (21.0-31.0) Seconds PTT Ratio 0.9 VBG pH VBG pCO2 VBG pO2 VBG HCO3 VBG O2 Saturation VBG Base Excess Barometric Pressure Sodium 135 L (136-145) mmol/L Potassium 3.6 (3.5-5.1) mmol/L Chloride 103 (98-107) mmol/L Carbon Dioxide 26 (21-32) mmol/L Anion Gap 6.0 (3-11) BUN 17 (7-18) mg/dl Creatinine 0.71 (0.6-1.2) mg/dl Est Cr Clr Drug Dosing Not Reportable Est GFR ( Amer) 97.9 Est GFR (Non-Af Amer) 84.5 BUN/Creatinine Ratio 24.2 H (10-20) Glucose 83 (70-99) mg/dl Lactate (0.4-2.0) mmol/L Calcium 9.3 (8.5-10.1) mg/dl Phosphorus 3.1 (2.5-4.9) mg/dl Magnesium 1.8 (1.8-2.4) mg/dl Total Bilirubin 0.4 (0.2-1) mg/dl Direct Bilirubin 0.1 (0-0.2) mg/dl AST 17 (15-37) U/L ALT 24 (12-78) U/L Alkaline Phosphatase 122 H (45-117) U/L Troponin I (0-0.045) ng/ml Total Protein 7.7 (6.4-8.2) gm/dl Albumin 3.5 (3.4-5.0) gm/dl Globulin 4.2 H (2.5-4.0) gm/dl Albumin/Globulin Ratio 0.8 L (0.9-2) TSH 2.320 (0.300-4.500) uIu/ml 01/07/19 01/07/19 01/07/19 Range/Units 12:26 12:26 12:26 WBC (4.8-10.8) K/uL RBC (4.2-5.4) M/uL Hgb (12.0-16.0) g/dL Hct (37-47) % MCV (80-100) fL MCH (25-34) pg MCHC (32-36) g/dL RDW Std Deviation (36.4-46.3) fL RDW Coeff of Db (11.5-14.5) % Plt Count (130-400) K/uL MPV (7.4-10.4) fL Immature Gran % (Auto) % Neut % (Auto) % Lymph % (Auto) % Emanuel % (Auto) % Eos % (Auto) % Baso % (Auto) % Immature Gran # (Auto) (0.00-0.02) K/uL Neut # (Auto) (1.4-6.5) K/uL Lymph # (Auto) (1.2-3.4) K/uL Emanuel # (Auto) (0.11-0.59) K/uL Eos # (Auto) (0-0.5) K/uL Baso # (Auto) (0-0.2) K/uL PT (9.0-12.0) Seconds INR (0.9-1.1) APTT (21.0-31.0) Seconds PTT Ratio VBG pH Cancelled VBG pCO2 Cancelled VBG pO2 Cancelled VBG HCO3 Cancelled VBG O2 Saturation Cancelled VBG Base Excess Cancelled Barometric Pressure Cancelled Sodium (136-145) mmol/L Potassium (3.5-5.1) mmol/L Chloride (98-107) mmol/L Carbon Dioxide (21-32) mmol/L Anion Gap (3-11) BUN (7-18) mg/dl Creatinine (0.6-1.2) mg/dl Est Cr Clr Drug Dosing Est GFR ( Amer) Est GFR (Non-Af Amer) BUN/Creatinine Ratio (10-20) Glucose (70-99) mg/dl Lactate 1.3 (0.4-2.0) mmol/L Calcium (8.5-10.1) mg/dl Phosphorus (2.5-4.9) mg/dl Magnesium (1.8-2.4) mg/dl Total Bilirubin (0.2-1) mg/dl Direct Bilirubin (0-0.2) mg/dl AST (15-37) U/L ALT (12-78) U/L Alkaline Phosphatase (45-117) U/L Troponin I < 0.015 (0-0.045) ng/ml Total Protein (6.4-8.2) gm/dl Albumin (3.4-5.0) gm/dl Globulin (2.5-4.0) gm/dl Albumin/Globulin Ratio (0.9-2) TSH (0.300-4.500) uIu/ml Imaging Data Radiologist's Impression: Radiology results as stated below per my review and the radiologist's interpretation: XR chest 1V portable CLINICAL HISTORY: Sepsis COMPARISON STUDY: 10/11/2018 FINDINGS: The study is limited from a technical standpoint. The patient is rotated and listing to the right. The heart is borderline enlarged. There are interstitial fibrotic changes similar to the prior study. There is no lobar consolidation.[ IMPRESSION: 1. Stable findings 2. Stable asymmetric interstitial lung disease. 3. Rotated study Electronically signed by: Ivan Fma M.D. 01/07/2019 12:[address] head/brain wo con CLINICAL HISTORY: ams COMPARISON STUDY: 07/17/2017 TECHNIQUE: Axial CT of the brain is performed from the vertex to the skull base. IV contrast was not administered for this examination. A dose lowering technique was utilized adhering to the principles of ALARA. CT DOSE: 1457.65 mGy.cm FINDINGS: No intra or extra-axial mass lesions are visualized. There is no CT evidence of acute cortical infarction. There is no evidence of midline shift. There is no acute hemorrhage. No calvarial fractures are visualized. There is apparent absence of the corpus callosum and septum pellucidum. There is a dilated lateral ventricle unchanged from the preceding study. There is stable cerebellar atrophy. There is a sphenoid sinus air-fluid level, smaller than on the preceding study. IMPRESSION: 1. 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 No acute intracranial findings Electronically signed by: Ivan Fam M.D. 01/07/2019 1:[address] abd pelvis IV con only CLINICAL HISTORY: 73 years-old Female presenting with abd distension fever. TECHNIQUE: Multidetector CT of the abdomen and pelvis was performed after the administration of intravenous contrast. IV contrast: 94 mL of Optiray 320. One or more dose lowering techniques were used consistent with the principles of ALARA (as low as reasonably achievable), including automatic exposure control, mA or kV adjustment to individual patient size, and/or use of iterative reconstruction. COMPARISON: 10/11/2018. CT DOSE (mGy.cm): The estimated cumulative dose is 1457.65. FINDINGS: Accounting Representative topogram: Unremarkable. Lung bases: Multichamber enlargement of the heart. Coronary artery, aortic valve, and mitral annular calcification. No pericardial or pleural effusion. Extensive cystic change and reticular opacities at the lung bases greater on the right. Bronchiectasis and a lesser degree of fibrotic changes on the left. Liver: Congenital hypoplasia of the medial segments of the left hepatic lobe. No focal lesion. Patent hepatic vasculature. Biliary: No intrahepatic or extrahepatic biliary ductal dilatation. Normal gallbladder. Pancreas: Normal. Spleen: Deformity of the spleen may suggest prior trauma or infarct. Adrenal glands: Normal. Kidneys and ureters: Normal. No hydronephrosis. Bladder: Decompressed with a Rodriguez catheter. Double hyperdensities in the bladder lumen as on prior exam, presumably cast-like bladder calculi. Pelvic organs: Poorly visualized uterus. Bowel: Markedly distended rectum with circumferential wall thickening. Sigmoid colon is distended with gas. Mild wall thickening of the cecum and a limited portion. The appendix contains gas and fluid and is normal in diameter. An air- fluid level may be present in the appendix (series 5 image 267), which is equivocal for appendicitis. No periappendiceal fat infiltration. No bowel obstruction. Peritoneal cavity: No free fluid or intraperitoneal gas. Lymph nodes: No enlarged lymph nodes in the abdomen or pelvis. Vasculature: Atherosclerosis of the normal caliber abdominal aorta. IVC patent. Abdominal wall: Diastasis of the rectus abdominis. Musculoskeletal: Right hip arthroplasty. Degenerative changes of the spine. Mild compression deformities of L2, T11, T12. These are unchanged from prior. Osteopenia. IMPRESSION: 1. Distended rectum with circumferential wall thickening consistent with proctitis, likely on an infectious or inflammatory basis. No bowel obstruction. 2. No convincing evidence of appendicitis given the normal appendiceal diameter and absence of significant periappendiceal fat infiltration. Correlate clinically to ensure the absence of right lower quadrant pain. 3. Numerous cast like bladder calculi. 4. Chronic fibrotic changes at the lung bases. 5. Multiple chronic mild compression deformities in the setting of osteopenia. Electronically signed by: Lopez Weiss M.D. 01/07/2019 1:55 PM ECG Data Attestation: I personally reviewed and interpreted this ECG as follows: Indication: weakness Rate (beats per minute): 65 Rhythm: normal sinus Findings: + other (normal axis); no acute ischemic change Blood Pressure Blood Pressure Findings: Elevated blood pressure Blood Pressure Disposition: further management by hospitalist AMARA Odell The patient is a pleasant 73-year-old woman with a past medical history of cognitive disability, cerebral palsy with chronic immobility, indwelling rodriguez catheter, seizure disorder, history of abdominal distention with pseudo- obstruction with prior admission in September 2018, who presents to emergency department with near syncopal episode in the setting of having a bowel movement where she suddenly became pale and diaphoretic per hpi. Of note, the staff member from the patient's custodial at the bedside reports she has been treated for a UTI in the setting of her indwelling Rodriguez catheter but was recently called and informed of a change in her antibiotic due to her urine culture. Atte mpting to obtain this result. On arrival patient is chronically ill-appearing but no acute distress, afebrile, with blood pressure 80s/60s, and vital signs otherwise stable. On exam the patient appears that her baseline neurologic status moving all extremities equally and moaning loudly with exam. Patient's abdomen is distended however tenderness is difficult to assess in this mentally delayed/chronically ill patient. WBC 4.6, nonspecific. H/H and platelets within normal limits. Chemistry without acidosis. LFTs and electrolytes unremarkable. CT the abdomen pelvis demonstrate "markedly distended rectum with circumferential wall thickening. Sigmoid colon is distended with gas." Consist ent with proctitis. Additionally seen is "Mild wall thickening of the cecum and a limited portion of appendix contains gas and fluid and is normal in diameter." An air-fluid level is possibly present and is equivocal for appendicitis. However, no periappendiceal fat infiltration and no bowel obstruction. On prior admission in september patient was managed with aggressive bowel regimen/enemas. Case was discussed with Dr. Morgan, general surgery who recommends admission to the medicine service and they will be available for consultation. Case was discussed with Sai Cristobal PA-C, who evaluate the patient for admission. They will also contact GI for inpatient consultation. Impression & Plan Near syncope, Abdominal distension, Acute dehydration, Proctitis Discharge Plan Visit Data *Final* Discharge Date/Time: 01/07/19 16:15 Chief Complaint: Lethargic ED Provider: Russell Brink Discharge Problem: Near syncope, Abdominal distension, Acute dehydration, Proctitis Patient Disposition: Admitted As Inpatient Discharge Instructions Interventions: ED Discharge Assessment Last Done: 01/07/19 16:15 The scribe's documentation has been prepared under my direction and personally reviewed by me in its entirety. I confirm that the note above accurately reflects all work, treatment, procedures, and medical decision making performed by me.
--- NOTE | 2019-01-07 15:58 | History & Physical Report ---
Date of Service January 07, 2019 Assessment & Plan (1) Near syncope: (2) Dehydration: (3) Proctitis: This is a 73-year-old female who has a significant past medical history of cerebral palsy with severe intellectual disability, hypothyroidism, pulmonary fibrosis, chronic constipation, chronic urinary retention with chronic indwelling Rodriguez, recurrent UTI, history of seizure disorder, history of RLE DVT, osteoporosis who presents to [facility] ED secondary to near syncopal episode. In ED initially patient was hypotensive 87/66. CBC and CMP relatively unremarkable except slight elevation in BUN/creatinine from baseline at 17 and 0.71 with a ratio 24.2, sodium 135. Lactate, magnesium, phosphorus, TSH WNL CT scan of head as well as chest x-ray without acute abnormality Abdomen pelvis CT revealed inflammatory versus infectious rectosigmoid proctitis, no bowel obstruction Also noted on CT scan were multiple compression deformities in setting of osteopenia In ED patient received 1 L bolus of IVF with improvement of hemodynamics. Feel symptoms of near syncope may be in setting of vasovagal given having a BM vs dehydration due to poor po intake for 1 week Admit to med/telemetry under observation Continue oral Macrobid 100 mg p.o. every 12 hours for UTI Blood cultures and repeat urine culture pending Follow BMP, CBC Consult GI given proctitis Caregiver patient moving bowels daily with MiraLAX twice daily, no reports of melena, hematochezia Monitor BMs unable to obtain orthostatic VS given CP and intellectual disability status (4) UTI (urinary tract infection): Urine culture obtained on 01/02, results returned on 01/05 Initially started on Cipro and transitioned to Macrobid per sensitivity transitioned to Macrobid 100 mg p.o. twice daily x5 days Patient is afebrile in WNL (5) Seizure disorder: Continue Lamictal, Keppra, carbamazepine no Seizure activity noted (6) Compression deformity of vertebra: Noted on CT scan of abdomen pelvis Patient not complaining of any pain Secondary to osteoporosis Patient receives Prolia injections (7) Chronic indwelling Rodriguez catheter: Changed at beginning of every month Continue methenamine hippurate for prophylaxis (8) Hypothyroidism: Continue levothyroxine TSH 2.32 (9) Pulmonary fibrosis: No acute exacerbation Unchanged chest x-ray Monitor respiratory status (10) 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 Mood/behavior stable (11) DVT prophylaxis: Lovenox, SCD, TEDS Disposition: [facility] when medically able Follow up: PCP Dr. Carvalho upon discharge Patient was seen and examined in collaboration with Dr. Hidalgo, please see addendum Starting 01/08/19 patient will be under the care of Dr. Oshea In case of emergency contact patient Brother and/or Sister adrienne Dorantes and Joyce Sanchez at [phone] History of Present Illness Chief Complaint: Near syncopal episode Primary Care Provider: Lora Carvahlo, DO This is a 73-year-old female who has a significant past medical history of cerebral palsy with severe intellectual disability, hypothyroidism, pulmonary fibrosis, chronic constipation, chronic urinary retention with chronic indwelling Rodriguez, recurrent UTI, history of seizure disorder, history of RLE DVT, osteoporosis who presents to [facility] ED secondary to near syncopal episode. Caregiver is at bedside. Caregiver provides history. Unable to obtain history from patient. For the past week patient has had overall decreased oral intake, decreased appetite. Approximately 1 week ago she developed upper respiratory symptoms including sinus congestion, rhinorrhea, cough. Patient was seen by PCP on 01/02. At that time she was diagnosed with urinary tract infection and placed on oral Cipro. She had follow-up appointment on 01/05 in which it was felt URI symptoms were improving. Her urine culture was still pending. Today when patient was in the bathroom caregiver noted patient to become very white, diaphoretic and cold and clammy as if she may pass out. At the time she did also move her bowels. She did not lose consciousness, fall or hit her head or have a syncopal episode. Caregiver denies any fever or complaints of pain. Feels URI symptoms have been improving. Continues to have decreased p.o. intake for approximate the past week. He has been moving her bowels regularly on a daily basis with taking MiraLAX twice daily, on softer and. No blood in stool or dark tarry stools noted. She continues to have chronic indwelling Rodriguez in place which is changed monthly at the beginning of the month by home health nurses. Caregiver elicits no recent seizure activity. Allergies Allergy/AdvReac Type Severity Reaction Status Date / Time No Known Allergies Allergy Unknown Verified 06/11/18 08:17 Home Medications Home Medications Medication Instructions Recorded Confirmed Type multivitamin [Multiple Vitamins] 1 tab PO QAM #0 02/27/11 01/07/19 History acetaminophen 650 mg PO Q4 PRN #0 MDD 3gm/24hr 09/09/11 01/07/19 History carbamazepine [Carbatrol] 300 mg PO BID #0 06/29/12 01/07/19 History calcium carbonate [Oyster Shell 1 tab PO HS #0 11/29/12 01/07/19 History Calcium 500] Aloe Graford 1 applic TOPICAL BID #0 11/11/14 01/07/19 History Prolia 60 mg SUBCUT UD #0 07/17/17 01/07/19 History Robitussin Cough-Chest Mariano DM 10 ml PO Q4H PRN #0 07/17/17 01/07/19 History aspirin 81 mg PO QAM #0 07/17/17 01/07/19 History hydrocortisone [Anusol-HC] 1 applic NE BID PRN 7 Days #30 g 07/17/17 01/07/19 History levothyroxine 100 mcg PO QAM #0 07/17/17 01/07/19 History methenamine hippurate 1 g PO BID #0 07/17/17 01/07/19 History metronidazole [Metrogel] 1 applic TOPICAL DAILY #0 07/17/17 01/07/19 History lamotrigine [Lamictal] 300 mg PO BID 06/11/18 01/07/19 History linaclotide 290 mcg PO QAM 06/11/18 01/07/19 History polyethylene glycol 3350 [Miralax] 17 g PO BID 06/11/18 01/07/19 History fluticasone propionate 2 spray INTRANASAL DAILY 10/11/18 01/07/19 History lamotrigine 50 mg PO BID 10/11/18 01/07/19 History levetiracetam 750 mg PO BID 10/11/18 01/07/19 History nitrofurantoin monohyd/m-cryst 100 mg PO Q12H 01/07/19 01/07/19 History [Macrobid] Past Med/Surg History Medical History Proctitis Cerebral palsy (Chronic) History of recurrent UTI (urinary tract infection) (Chronic) Chronic indwelling Rodriguez catheter (Chronic) Seizure disorder (Chronic) Intellectual disability (Chronic) History of DVT (deep vein thrombosis) (Chronic) "2002- right lower extremity, completed Coumadin therapy" On 01/30/15 10:26 Francine Mckeon wrote "2002- right lower extremity" Hypothyroidism (Chronic) Pulmonary fibrosis (Chronic) Rodriguez catheter in place (Chronic) Colon abnormality (Chronic) Surgical History History of cystoscopy (Chronic) History of total right hip arthroplasty (Chronic) Family History Mother Hypertension Father Heart disease Grandmother Cancer Social History Preferred Language: Afghan Communication Ability: Impaired Communication Ability Comment: speaks some words, able to mkae needs known Windshield Installer Required: No Beliefs That Will Affect Care: None marital status: Single Current Living Situation: Personal Care Facility Current Living Situation Comment: [facility] Other Information That Helps Us Care for You: No Feels Safe at Home: Yes Smoking Status: Never smoker Do You Dip or Chew Tobacco: No Hx Alcohol Use: No Hx Substance Use: No Review of Systems Review of Systems: Unobtainable due to cognitive status Physical Exam Physical Exam: Gen: WD/WN, elderly, female, lying in bed, severe intellectual disability Head: Normocephalic, Atraumatic Eyes: Sclera normal, no conjunctival injection, PERRLA, conjugate gaze ENT: Gross hearing intact, normal pharynx, mucous membranes moist Neck: supple, no adenopathy, No JVD, no bruit, Resp: Clear to auscultation b/l, no wheeze, rales, rhonchi. Poor inspiratory effort but otherwise normal insp/exp effort, no accessory muscle use CV: Regular rate, regular rhythm, no murmur, rub, gallop, or ectopy Abd: Slight distended abdomen, +BS x 4, soft, nontender, nondistended Musculoskeletal: Left upper extremity flexion contracture, moves right upper extremity willingly. Unable to assess strength given cognitive status. Extremities: Trace lymphedema bilateral lower extremities. Bilateral pedal pulses +1 and equal. No erythema, warmth Skin: warm, moist, no rash, negative turgor, cap refill < 2sec Neuro: Patient is alert but not oriented, flat mood/affect, cran nerve 2-12 intact grossly : Positive Rodriguez catheter draining yellow urine Results & Data Vital Signs (Past 12 Hours) Vital Signs Temp Pulse Resp BP Pulse Ox 01/07/19 14:30 78 15 99 01/07/19 14:01 74 22 100 01/07/19 14:00 71 16 140/127 H 100 01/07/19 13:44 85 14 99 01/07/19 13:01 69 19 161/87 H 99 01/07/19 13:00 73 17 99 01/07/19 12:31 67 14 160/76 H 99 01/07/19 12:30 74 21 99 01/07/19 12:29 68 10 L 99 01/07/19 12:28 64 17 121/72 100 01/07/19 12:00 76 20 100 01/07/19 11:30 65 14 99 01/07/19 11:29 36.5 C 76 23 87/66 L 99 01/07/19 11:21 66 21 99 01/07/19 11:14 68 22 87/66 L 99 Laboratory Results Short CBC 01/07/19 Range/Units 12:26 WBC 4.69 L (4.8-10.8) K/uL Hgb 12.6 (12.0-16.0) g/dL Hct 38.0 (37-47) % Plt Count 253 (130-400) K/uL BMP 01/07/19 12:26 Sodium 135 L Potassium 3.6 Chloride 103 Carbon Dioxide 26 BUN 17 Creatinine 0.71 Glucose 83 Calcium 9.3 Cardiac Enzymes 01/07/19 Range/Units 12:26 Troponin I < 0.015 (0-0.045) ng/ml Liver Function 01/07/19 Range/Units 12:26 Total Bilirubin 0.4 (0.2-1) mg/dl Direct Bilirubin 0.1 (0-0.2) mg/dl AST 17 (15-37) U/L ALT 24 (12-78) U/L Alkaline Phosphatase 122 H (45-117) U/L Albumin 3.5 (3.4-5.0) gm/dl Diagnostic Findings Head CT: IMPRESSION: 1. 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 No acute intracranial findings Abd/Pelvis CT: CT abd pelvis IV con only CLINICAL HISTORY: 73 years-old Female presenting with abd distension fever. TECHNIQUE: Multidetector CT of the abdomen and pelvis was performed after the administration of intravenous contrast. IV contrast: 94 mL of Optiray 320. One or more dose lowering techniques were used consistent with the principles of ALARA (as low as reasonably achievable), including automatic exposure control, mA or kV adjustment to individual patient size, and/or use of iterative reconstruction. COMPARISON: 10/11/2018. CT DOSE (mGy.cm): The estimated cumulative dose is 1457.65. FINDINGS: Bank Vault Attendant topogram: Unremarkable. Lung bases: Multichamber enlargement of the heart. Coronary artery, aortic valve, and mitral annular calcification. No pericardial or pleural effusion. Extensive cystic change and reticular opacities at the lung bases greater on the right. Bronchiectasis and a lesser degree of fibrotic changes on the left. Liver: Congenital hypoplasia of the medial segments of the left hepatic lobe. No focal lesion. Patent hepatic vasculature. Biliary: No intrahepatic or extrahepatic biliary ductal dilatation. Normal gallbladder. Pancreas: Normal. Spleen: Deformity of the spleen may suggest prior trauma or infarct. Adrenal glands: Normal. Kidneys and ureters: Normal. No hydronephrosis. Bladder: Decompressed with a Rodriguez catheter. Double hyperdensities in the bladder lumen as on prior exam, presumably cast-like bladder calculi. Pelvic organs: Poorly visualized uterus. Bowel: Markedly distended rectum with circumferential wall thickening. Sigmoid colon is distended with gas. Mild wall thickening of the cecum and a limited portion. The appendix contains gas and fluid and is normal in diameter. An air- fluid level may be present in the appendix (series 5 image 267), which is equivocal for appendicitis. No periappendiceal fat infiltration. No bowel obstruction. Peritoneal cavity: No free fluid or intraperitoneal gas. Lymph nodes: No enlarged lymph nodes in the abdomen or pelvis. Vasculature: Atherosclerosis of the normal caliber abdominal aorta. IVC patent. Abdominal wall: Diastasis of the rectus abdominis. Musculoskeletal: Right hip arthroplasty. Degenerative changes of the spine. Mild compression deformities of L2, T11, T12. These are unchanged from prior. Osteopenia. IMPRESSION: 1. Distended rectum with circumferential wall thickening consistent with proctitis, likely on an infectious or inflammatory basis. No bowel obstruction. 2. No convincing evidence of appendicitis given the normal appendiceal diameter and absence of significant periappendiceal fat infiltration. Correlate clinically to ensure the absence of right lower quadrant pain. 3. Numerous cast like bladder calculi. 4. Chronic fibrotic changes at the lung bases. 5. Multiple chronic mild compression deformities in the setting of osteopenia. CXR: IMPRESSION: 1. Stable findings 2. Stable asymmetric interstitial lung disease. 3. Rotated study Medications Administered Ioversol (Optiray 320 100ml) 94 ml IV ONCE PRN PRN Reason: Interaction Checking Stop: 01/11/19 13:34 Last Admin: 01/07/19 13:36 Dose: 94 ml Documented by: [id number] Discontinued Medications Sodium Chloride (Nss 1000ml) 1,000 mls @ 999 mls/hr IV .Q1H1M ONE Stop: 01/07/19 12:47 Last Infusion: 01/07/19 13:23 Dose: 0 mls/hr Documented by: [id number] Admin: 01/07/19 12:20 Dose: 999 mls/hr Documented by: [id number] ECG Rate (beats per minute): 65 Rhythm: normal sinus Code Status & VTE Plan Code Status Full Code VTE Prophylaxis Plan VTE Prophylaxis will be ordered: Yes Supervising Physician Co-Signing Physician Notes I, Dr. Sterling Hidalgo, have seen and examined the patient with physician credentialing assistant and would like to comment that patient as per her [facility] accompanied care provider may have had a vasovagal episode when sitting on a commode. Patient has intellectual disability and minimally verbal and cannot give further history or provide list of positives or negatives to review of systems. What is apparent one exam is that patient is not in distress and appears generally comfortable in appearance. There are not acute findings on CT head. She has on exam left upper extremity contractures and pushes away from physician for a good heart and lung exam. X ray shows Stable asymmetric interstitial lung disease. Patient breathing on room air. heart rate appears regular rate on telemetry. there does not appear to be acute abdomen tenderness and there are bowel sounds present. On abdomen imaging "Distended rectum with circumferential wall thickening consistent with proctitis, likely on an infectious or inflammatory basis. No bowel obstruction. No convincing evidence of appendicitis given the normal appendiceal diameter and absence of significant periappendiceal fat infiltration. Correlate clinically to ensure the absence of right lower quadrant pain. Numerous cast like bladder calculi. Chronic fibrotic changes at the lung bases. Multiple chronic mild compression deformities in the setting of osteopenia." However, I do not think there is active process on abdomen imaging beyond proctitis and these findings should not have correlated to initial symptoms. Patient has chronic rodriguez and already on nitrofurantoin for previously outpatient diagnosed urinary tract infection. At this time, I think it would be best to monitor the patient conservatively on telemetry. Patient will be followed by my colleague Dr. Oshea starting on 01/08/19
--- NOTE | 2019-01-07 16:30 | Gastrointestinal Consultation ---
Date of Consultation January 07, 2019 Assessment & Plan (1) Chronic constipation: 73 year old cerebral palsy with severe intellectual disability, hypothyroidism, pulmonary fibrosis, prior sigmoid volvulus, chronic constipation on Linzess and Miralax admitted w/ near syncopal event - CT w/ distended rectum with circumferential wall thickening consistent with proctitis w/o evidence of bowel obstruction. She is tolerating diet, moving bowels 2 times daily w/o black or bloody stools. Would continue current bowel regimen. Appreciate primary service management of Minerva's chronic comorbidities Stool culture, stool c.diff Continue Linzess daily Continue Miralax daily Consider repeat imaging w/ KUB if symptoms change Thank you for allowing us to participate in the care of this patient. Please call with any acute changes, questions or concerns. Please see addendum below with additional recommendation from my supervising physician. History of Present Illness Reason for Consultation: abnormal imaging Requesting Physician: Dorie Attending Physician: Lul Oshea MD History of Present Illness 73 year old female know to GI w/ history of sigmoid volvulus, chronic constipation on Linzess and Miralax who presented through the ED for evaluation of near syncopal episode and UTI - GI asked to evaluate for abnormal noncontrast CT w/ procitis. Pt was seen and evaluated, chart reviewed. With caregiver. They voice no GI concerns. Moving bowels well on therapy. Two soft stools. No black or bloody stools. No nausea, vomiting. CT: Distended rectum with circumferential wall thickening consistent with proctitis, likely on an infectious or inflammatory basis. No bowel obstruction. No convincing evidence of appendicitis given the normal appendiceal diameter and absence of significant periappendiceal fat infiltration. Correlate clinically to ensure the absence of right lower quadrant pain. Numerous cast like bladder calculi.Chronic fibrotic changes at the lung bases.Multiple chronic mild compression deformities in the setting of osteopenia. No recent endoscopic imaging Allergies Allergy/AdvReac Type Severity Reaction Status Date / Time No Known Allergies Allergy Unknown Verified 06/11/18 08:17 Home Medications Home Medications Medication Instructions Recorded Confirmed Type multivitamin [Multiple Vitamins] 1 tab PO QAM #0 02/27/11 01/07/19 History acetaminophen 650 mg PO Q4 PRN #0 MDD 3gm/24hr 09/09/11 01/07/19 History carbamazepine [Carbatrol] 300 mg PO BID #0 06/29/12 01/07/19 History calcium carbonate [Oyster Shell 1 tab PO HS #0 11/29/12 01/07/19 History Calcium 500] Aloe Petty 1 applic TOPICAL BID #0 11/11/14 01/07/19 History Prolia 60 mg SUBCUT UD #0 07/17/17 01/07/19 History Robitussin Cough-Chest Mariano DM 10 ml PO Q4H PRN #0 07/17/17 01/07/19 History aspirin 81 mg PO QAM #0 07/17/17 01/07/19 History hydrocortisone [Anusol-HC] 1 applic RI BID PRN 7 Days #30 g 07/17/17 01/07/19 History levothyroxine 100 mcg PO QAM #0 07/17/17 01/07/19 History methenamine hippurate 1 g PO BID #0 07/17/17 01/07/19 History metronidazole [Metrogel] 1 applic TOPICAL DAILY #0 07/17/17 01/07/19 History lamotrigine [Lamictal] 300 mg PO BID 06/11/18 01/07/19 History linaclotide 290 mcg PO QAM 06/11/18 01/07/19 History polyethylene glycol 3350 [Miralax] 17 g PO BID 06/11/18 01/07/19 History fluticasone propionate 2 spray INTRANASAL DAILY 10/11/18 01/07/19 History lamotrigine 50 mg PO BID 10/11/18 01/07/19 History levetiracetam 750 mg PO BID 10/11/18 01/07/19 History nitrofurantoin monohyd/m-cryst 100 mg PO Q12H 01/07/19 01/07/19 History [Macrobid] Patient History Medical History Cerebral palsy (Chronic) History of recurrent UTI (urinary tract infection) (Chronic) Chronic indwelling Alvarado catheter (Chronic) Seizure disorder (Chronic) Intellectual disability (Chronic) History of DVT (deep vein thrombosis) (Chronic) "2002- right lower extremity, completed Coumadin therapy" On 01/30/15 10:26 Francine Mckeon wrote "2002- right lower extremity" Hypothyroidism (Chronic) Pulmonary fibrosis (Chronic) Alvarado catheter in place (Chronic) Colon abnormality (Chronic) Surgical History History of cystoscopy (Chronic) History of total right hip arthroplasty (Chronic) Family History Mother Hypertension Father Heart disease Grandmother Cancer Social History Preferred Language: Turkmen Communication Ability: Impaired Communication Ability Comment: speaks some words, able to mkae needs known Conductor Sleeping Car Required: No Beliefs That Will Affect Care: None marital status: Single Current Living Situation: Personal Care Facility Current Living Situation Comment: [facility] home Other Information That Helps Us Care for You: No Feels Safe at Home: Yes Smoking Status: Never smoker Do You Dip or Chew Tobacco: No Hx Alcohol Use: No Hx Substance Use: No Review of Systems Review of Systems: Not obtained secondary to mental status Physical Exam Constitutional: WD/WN, vitals as above no acute distress Neck: trachea midline Respiratory: normal respiratory effort, lungs clear to auscultation Cardiovascular: Rate/Rhythm: regular rate and regular rhythm Gastrointestinal (Abdomen): normal bowel sounds, soft, nontender, no hepatosplenomegaly Skin: no rashes, warm and dry Results & Data Vital Signs (Past 12 Hours) Vital Signs Temp Pulse Resp BP Pulse Ox 01/07/19 16:03 70 16 99 01/07/19 16:02 65 14 150/86 H 98 01/07/19 16:00 69 15 99 01/07/19 15:31 67 18 151/76 H 100 01/07/19 15:30 68 16 99 01/07/19 15:00 64 15 153/95 H 99 01/07/19 14:30 78 15 99 01/07/19 14:01 74 22 100 01/07/19 14:00 71 16 140/127 H 100 01/07/19 13:44 85 14 99 01/07/19 13:01 69 19 161/87 H 99 01/07/19 13:00 73 17 99 01/07/19 12:31 67 14 160/76 H 99 01/07/19 12:30 74 21 99 01/07/19 12:29 68 10 L 99 01/07/19 12:28 64 17 121/72 100 01/07/19 12:00 76 20 100 01/07/19 11:30 65 14 99 01/07/19 11:29 36.5 C 76 23 87/66 L 99 01/07/19 11:21 66 21 99 01/07/19 11:14 68 22 87/66 L 99
[2019-01-07] MEDS ORDERED: GUAIFENESIN/DEXTROM SYRUP 200MG/20MG 10ML UDC PO PRN (17:12)
[2019-01-07] MEDS ORDERED: ALUMINUM/MAGNESIUM SUSP 30 ML UDC PO PRN (17:12)
[2019-01-07] MEDS ORDERED: ONDANSETRON INJ 2 MG/ML 2 ML VIAL IV PRN (17:12)
[2019-01-07] MEDS ORDERED: HYDROCORTISONE HC 2.5% CRM 30GM TUBE EXT PRN (17:12)
[2019-01-07] MEDS ORDERED: MAGNESIUM HYDROXIDE SUSP 30 ML UDC PO PRN (17:12)
[2019-01-07] MEDS ORDERED: POLYETHYLENE (MIRALAX) 17 GM PACK PO PRN (17:12)
[2019-01-07] MEDS ORDERED: ACETAMINOPHEN 325 MG TAB PO PRN ×2 (17:12)
[2019-01-07 19:57] LABS: Appearance Urine Turbid (Clear); Bacteria Urine Automated 1+ (Negative); Bilirubin Urine Negative (Negative); Blood Urine 1+ (Negative); Color Urine Yellow; Epithelial Cell Urine Auto >30 /lpf (0-5); Glucose Urine UA Negative (Negative); Ketones Urine Negative (Negative); Leukocyte Esterase Urine 2+ (Negative); Nitrite Urine Negative (Negative); Protein Urine 1+ (Negative); Specific Gravity Urine > 1.045 (1.000-1.030); Urobilinogen Urine Negative (Negative); WBC Urine Automated >30 /hpf (0-5); pH Urine 6.5 (4.5-7.5)
[2019-01-07] MEDS ORDERED: WHITE PETROLATUM TOP SCH (21:00)
[2019-01-07] MEDS: levETIRAcetam 250 MG TAB PO SCH (21:41)
[2019-01-07] MEDS: lamoTRIgine 25 MG TAB PO SCH (21:42)
[2019-01-07] MEDS: lamoTRIgine 100 MG TAB PO SCH (21:43)
[2019-01-07] MEDS: NITROFURANTOIN MONOHYDRATE 100 MG CAP PO SCH (21:44)
[2019-01-07] MEDS: CARBITROL PO SCH (21:45)
[2019-01-07] MEDS: METHENAMINE HIPPURATE 1 GM TAB PO SCH (21:46)
[2019-01-07] MEDS: CALCIUM CARBONATE 1250MG TAB PO SCH (21:46)
[2019-01-07] MEDS: POLYETHYLENE (MIRALAX) 17 GM PACK PO SCH (22:11)
[2019-01-08] MEDS: LINZESS~ORDER AWAITING ACTION SCH ×4 (00:18→23:47)
[2019-01-08] MEDS: LEVOTHYROXINE SODIUM 100 MCG TABLET PO SCH (06:18)
[2019-01-08] MEDS: ENOXAPARIN INJ 40 MG/0.4 ML SYR SQ SCH (08:14)
[2019-01-08] MEDS: levETIRAcetam 250 MG TAB PO SCH ×2 (08:15→20:08)
[2019-01-08] MEDS: METHENAMINE HIPPURATE 1 GM TAB PO SCH ×2 (08:15→20:08)
[2019-01-08] MEDS: POLYETHYLENE (MIRALAX) 17 GM PACK PO SCH ×2 (08:15→21:43)
[2019-01-08] MEDS: MULTIVITAMIN TAB PO SCH (08:16)
[2019-01-08] MEDS: NITROFURANTOIN MONOHYDRATE 100 MG CAP PO SCH ×2 (08:17→20:09)
[2019-01-08] MEDS: lamoTRIgine 100 MG TAB PO SCH ×2 (08:17→20:08)
[2019-01-08] MEDS: lamoTRIgine 25 MG TAB PO SCH ×2 (08:18→20:07)
[2019-01-08] MEDS: FLUTICASONE PROPIONATE NA SPR 16 GM BTL SCH (08:18)
[2019-01-08] MEDS: ASPIRIN 81 MG CHEW PO SCH (08:19)
[2019-01-08] MEDS: CARBITROL PO SCH ×2 (08:20→20:09)
--- NOTE | 2019-01-08 08:32 | Gastroenterology Progress Note ---
Date of Service January 08, 2019 Assessment & Plan (1) Chronic constipation: 73 year old cerebral palsy with severe intellectual disability, hypothyroidism, pulmonary fibrosis, prior sigmoid volvulus, chronic constipation on Linzess and Miralax admitted w/ near syncopal event - CT w/ distended rectum with circumferential wall thickening consistent with proctitis w/o evidence of bowel obstruction. She is tolerating diet, moving bowels 2 times daily w/o black or bloody stools. Would continue current bowel regimen. Appreciate primary service management of Minerva's chronic comorbidities Continue Linzess daily Continue Miralax daily Consider repeat imaging w/ KUB if symptoms change Thank you for allowing us to participate in the care of this patient. Please call with any acute changes, questions or concerns. Please see addendum below with additional recommendation from my supervising physician. Supervising Physician Co-Signing Physician Notes I have personally seen and examined the patient with APOLLO Montgomery. Her note reflects my exam and findings. I agree with her impression and plan. Cont bowel therapy. Rashaun Win M.D. Subjective Pt was seen and evaluated, chart reviewed Pt sleeping, awakes to name but falls back to sleep No family/friends at bedside Review of Systems Review of Systems: Unable to obtain Physical Exam Constitutional: WD/WN, vitals as above no acute distress Neck: trachea midline Respiratory: normal respiratory effort, lungs clear to auscultation Cardiovascular: Rate/Rhythm: regular rate and regular rhythm Gastrointestinal (Abdomen): normal bowel sounds, soft, nontender, no hepatosplenomegaly Skin: no rashes, warm and dry Results & Data Vital Signs (Past 12 Hours) Vital Signs Temp Pulse Pulse Resp BP Pulse Ox 01/08/19 07:39 37.4 C 103 H 19 138/89 92 01/08/19 07:25 69 01/08/19 00:15 70 Laboratory Results 01/07/19 01/07/19 01/07/19 Range/Units 19:34 12:26 12:26 WBC (4.8-10.8) K/uL RBC (4.2-5.4) M/uL Hgb (12.0-16.0) g/dL Hct (37-47) % MCV (80-100) fL MCH (25-34) pg MCHC (32-36) g/dL RDW Std Deviation (36.4-46.3) fL RDW Coeff of Db (11.5-14.5) % Plt Count (130-400) K/uL MPV (7.4-10.4) fL Immature Gran % (Auto) % Neut % (Auto) % Lymph % (Auto) % [place] % (Auto) % Eos % (Auto) % Baso % (Auto) % Immature Gran # (Auto) (0.00-0.02) K/uL Neut # (Auto) (1.4-6.5) K/uL Lymph # (Auto) (1.2-3.4) K/uL [place] # (Auto) (0.11-0.59) K/uL Eos # (Auto) (0-0.5) K/uL Baso # (Auto) (0-0.2) K/uL PT (9.0-12.0) Seconds INR (0.9-1.1) APTT (21.0-31.0) Seconds PTT Ratio VBG pH Cancelled VBG pCO2 Cancelled VBG pO2 Cancelled VBG HCO3 Cancelled VBG O2 Saturation Cancelled VBG Base Excess Cancelled Barometric Pressure Cancelled Sodium (136-145) mmol/L Potassium (3.5-5.1) mmol/L Chloride (98-107) mmol/L Carbon Dioxide (21-32) mmol/L Anion Gap (3-11) BUN (7-18) mg/dl Creatinine (0.6-1.2) mg/dl Est Cr Clr Drug Dosing Est GFR ( Amer) Est GFR (Non-Af Amer) BUN/Creatinine Ratio (10-20) Glucose (70-99) mg/dl Lactate (0.4-2.0) mmol/L Calcium (8.5-10.1) mg/dl Phosphorus (2.5-4.9) mg/dl Magnesium (1.8-2.4) mg/dl Total Bilirubin (0.2-1) mg/dl Direct Bilirubin (0-0.2) mg/dl AST (15-37) U/L ALT (12-78) U/L Alkaline Phosphatase (45-117) U/L Troponin I < 0.015 (0-0.045) ng/ml Total Protein (6.4-8.2) gm/dl Albumin (3.4-5.0) gm/dl Globulin (2.5-4.0) gm/dl Albumin/Globulin Ratio (0.9-2) TSH (0.300-4.500) uIu/ml Urine Color Yellow Urine Appearance Turbid A (Clear) Urine pH 6.5 (4.5-7.5) Ur Specific [place] > 1.045 H (1.000-1.030) Urine Protein 1+ H (Negative) Urine Glucose (UA) Negative (Negative) Urine Ketones Negative (Negative) Urine Blood 1+ H (Negative) Urine Nitrite Negative (Negative) Urine Bilirubin Negative (Negative) Urine Urobilinogen Negative (Negative) Ur Leukocyte Esterase 2+ H (Negative) Urine WBC (Auto) >30 H (0-5) /hpf Urine RBC (Auto) 5-10 H (0-4) /hpf U Hyaline Cast (Auto) Not Reportable U Epithel Cells (Auto) >30 H (0-5) /lpf Urine Bacteria (Auto) 1+ H (Negative) Urine Yeast Present A (None Prsent) 01/07/19 01/07/19 01/07/19 Range/Units 12:26 12:26 12:26 WBC (4.8-10.8) K/uL RBC (4.2-5.4) M/uL Hgb (12.0-16.0) g/dL Hct (37-47) % MCV (80-100) fL MCH (25-34) pg MCHC (32-36) g/dL RDW Std Deviation (36.4-46.3) fL RDW Coeff of Db (11.5-14.5) % Plt Count (130-400) K/uL MPV (7.4-10.4) fL Immature Gran % (Auto) % Neut % (Auto) % Lymph % (Auto) % [place] % (Auto) % Eos % (Auto) % Baso % (Auto) % Immature Gran # (Auto) (0.00-0.02) K/uL Neut # (Auto) (1.4-6.5) K/uL Lymph # (Auto) (1.2-3.4) K/uL [place] # (Auto) (0.11-0.59) K/uL Eos # (Auto) (0-0.5) K/uL Baso # (Auto) (0-0.2) K/uL PT 11.0 (9.0-12.0) Seconds INR 1.1 (0.9-1.1) APTT 23.5 (21.0-31.0) Seconds PTT Ratio 0.9 VBG pH VBG pCO2 VBG pO2 VBG HCO3 VBG O2 Saturation VBG Base Excess Barometric Pressure Sodium 135 L (136-145) mmol/L Potassium 3.6 (3.5-5.1) mmol/L Chloride 103 (98-107) mmol/L Carbon Dioxide 26 (21-32) mmol/L Anion Gap 6.0 (3-11) BUN 17 (7-18) mg/dl Creatinine 0.71 (0.6-1.2) mg/dl Est Cr Clr Drug Dosing Not Reportable Est GFR ( Amer) 97.9 Est GFR (Non-Af Amer) 84.5 BUN/Creatinine Ratio 24.2 H (10-20) Glucose 83 (70-99) mg/dl Lactate 1.3 (0.4-2.0) mmol/L Calcium 9.3 (8.5-10.1) mg/dl Phosphorus 3.1 (2.5-4.9) mg/dl Magnesium 1.8 (1.8-2.4) mg/dl Total Bilirubin 0.4 (0.2-1) mg/dl Direct Bilirubin 0.1 (0-0.2) mg/dl AST 17 (15-37) U/L ALT 24 (12-78) U/L Alkaline Phosphatase 122 H (45-117) U/L Troponin I (0-0.045) ng/ml Total Protein 7.7 (6.4-8.2) gm/dl Albumin 3.5 (3.4-5.0) gm/dl Globulin 4.2 H (2.5-4.0) gm/dl Albumin/Globulin Ratio 0.8 L (0.9-2) TSH 2.320 (0.300-4.500) uIu/ml Urine Color Urine Appearance (Clear) Urine pH (4.5-7.5) Ur Specific [place] (1.000-1.030) Urine Protein (Negative) Urine Glucose (UA) (Negative) Urine Ketones (Negative) Urine Blood (Negative) Urine Nitrite (Negative) Urine Bilirubin (Negative) Urine Urobilinogen (Negative) Ur Leukocyte Esterase (Negative) Urine WBC (Auto) (0-5) /hpf Urine RBC (Auto) (0-4) /hpf U Hyaline Cast (Auto) U Epithel Cells (Auto) (0-5) /lpf Urine Bacteria (Auto) (Negative) Urine Yeast (None Prsent) 01/07/19 Range/Units 12:26 WBC 4.69 L (4.8-10.8) K/uL RBC 4.15 L (4.2-5.4) M/uL Hgb 12.6 (12.0-16.0) g/dL Hct 38.0 (37-47) % MCV 91.6 (80-100) fL MCH 30.4 (25-34) pg MCHC 33.2 (32-36) g/dL RDW Std Deviation 44.7 (36.4-46.3) fL RDW Coeff of Db 13.4 (11.5-14.5) % Plt Count 253 (130-400) K/uL MPV 10.0 (7.4-10.4) fL Immature Gran % (Auto) 0.2 % Neut % (Auto) 52.9 % Lymph % (Auto) 29.2 % [place] % (Auto) 11.7 % Eos % (Auto) 5.1 % Baso % (Auto) 0.9 % Immature Gran # (Auto) 0.01 (0.00-0.02) K/uL Neut # (Auto) 2.48 (1.4-6.5) K/uL Lymph # (Auto) 1.37 (1.2-3.4) K/uL [place] # (Auto) 0.55 (0.11-0.59) K/uL Eos # (Auto) 0.24 (0-0.5) K/uL Baso # (Auto) 0.04 (0-0.2) K/uL PT (9.0-12.0) Seconds INR (0.9-1.1) APTT (21.0-31.0) Seconds PTT Ratio VBG pH VBG pCO2 VBG pO2 VBG HCO3 VBG O2 Saturation VBG Base Excess Barometric Pressure Sodium (136-145) mmol/L Potassium (3.5-5.1) mmol/L Chloride (98-107) mmol/L Carbon Dioxide (21-32) mmol/L Anion Gap (3-11) BUN (7-18) mg/dl Creatinine (0.6-1.2) mg/dl Est Cr Clr Drug Dosing Est GFR ( Amer) Est GFR (Non-Af Amer) BUN/Creatinine Ratio (10-20) Glucose (70-99) mg/dl Lactate (0.4-2.0) mmol/L Calcium (8.5-10.1) mg/dl Phosphorus (2.5-4.9) mg/dl Magnesium (1.8-2.4) mg/dl Total Bilirubin (0.2-1) mg/dl Direct Bilirubin (0-0.2) mg/dl AST (15-37) U/L ALT (12-78) U/L Alkaline Phosphatase (45-117) U/L Troponin I (0-0.045) ng/ml Total Protein (6.4-8.2) gm/dl Albumin (3.4-5.0) gm/dl Globulin (2.5-4.0) gm/dl Albumin/Globulin Ratio (0.9-2) TSH (0.300-4.500) uIu/ml Urine Color Urine Appearance (Clear) Urine pH (4.5-7.5) Ur Specific [place] (1.000-1.030) Urine Protein (Negative) Urine Glucose (UA) (Negative) Urine Ketones (Negative) Urine Blood (Negative) Urine Nitrite (Negative) Urine Bilirubin (Negative) Urine Urobilinogen (Negative) Ur Leukocyte Esterase (Negative) Urine WBC (Auto) (0-5) /hpf Urine RBC (Auto) (0-4) /hpf U Hyaline Cast (Auto) U Epithel Cells (Auto) (0-5) /lpf Urine Bacteria (Auto) (Negative) Urine Yeast (None Prsent)
[2019-01-08] MEDS ORDERED: ASPIRIN CHEW 324 MG PO SCH (09:00)
--- NOTE | 2019-01-08 11:47 | Surgery Progress Note ---
Date of Service January 08, 2019 Assessment & Plan (1) Proctitis: 73 year-old with history of chronic constipation who presented with near syncopal event. CT scan of abdomen and pelvis showing rectal distention with circumferential wall thickening consistent with proctitis. Abdomen soft, no l eukocytosis, vitals stable. No evidence of bowel obstruction. Plan: No acute surgical intervention required continue bowel regimen as recommended from GI Continue medical management Our services singing off, call with questions or concerns (2) Chronic constipation: Dr. Morgan has seen patient agrees with above Subjective patient sleeping, in no distress given intellectual disability and minimally verbal unable to obtain ROS Chart reviewed, no bowel movement recorded, no acute events overnight Physical Exam Constitutional: WD/WN, vitals as above no acute distress and not ill appearing Gastrointestinal (Abdomen): Percussion/Palpation: abdomen soft; abdomen nontender, no guarding and abdomen not rigid Skin: no rashes, warm and dry Results & Data Vital Signs (Past 12 Hours) Vital Signs Temp Pulse Pulse Resp BP Pulse Ox 01/08/19 07:39 37.4 C 103 H 19 138/89 92 01/08/19 07:25 69 01/08/19 00:15 70 Laboratory Results 01/07/19 01/07/19 01/07/19 Range/Units 19:34 12:26 12:26 WBC (4.8-10.8) K/uL RBC (4.2-5.4) M/uL Hgb (12.0-16.0) g/dL Hct (37-47) % MCV (80-100) fL MCH (25-34) pg MCHC (32-36) g/dL RDW Std Deviation (36.4-46.3) fL RDW Coeff of Db (11.5-14.5) % Plt Count (130-400) K/uL MPV (7.4-10.4) fL Immature Gran % (Auto) % Neut % (Auto) % Lymph % (Auto) % [place] % (Auto) % Eos % (Auto) % Baso % (Auto) % Immature Gran # (Auto) (0.00-0.02) K/uL Neut # (Auto) (1.4-6.5) K/uL Lymph # (Auto) (1.2-3.4) K/uL [place] # (Auto) (0.11-0.59) K/uL Eos # (Auto) (0-0.5) K/uL Baso # (Auto) (0-0.2) K/uL PT (9.0-12.0) Seconds INR (0.9-1.1) APTT (21.0-31.0) Seconds PTT Ratio VBG pH Cancelled VBG pCO2 Cancelled VBG pO2 Cancelled VBG HCO3 Cancelled VBG O2 Saturation Cancelled VBG Base Excess Cancelled Barometric Pressure Cancelled Sodium (136-145) mmol/L Potassium (3.5-5.1) mmol/L Chloride (98-107) mmol/L Carbon Dioxide (21-32) mmol/L Anion Gap (3-11) BUN (7-18) mg/dl Creatinine (0.6-1.2) mg/dl Est Cr Clr Drug Dosing Est GFR ( Amer) Est GFR (Non-Af Amer) BUN/Creatinine Ratio (10-20) Glucose (70-99) mg/dl Lactate (0.4-2.0) mmol/L Calcium (8.5-10.1) mg/dl Phosphorus (2.5-4.9) mg/dl Magnesium (1.8-2.4) mg/dl Total Bilirubin (0.2-1) mg/dl Direct Bilirubin (0-0.2) mg/dl AST (15-37) U/L ALT (12-78) U/L Alkaline Phosphatase (45-117) U/L Troponin I < 0.015 (0-0.045) ng/ml Total Protein (6.4-8.2) gm/dl Albumin (3.4-5.0) gm/dl Globulin (2.5-4.0) gm/dl Albumin/Globulin Ratio (0.9-2) TSH (0.300-4.500) uIu/ml Urine Color Yellow Urine Appearance Turbid A (Clear) Urine pH 6.5 (4.5-7.5) Ur Specific [place] > 1.045 H (1.000-1.030) Urine Protein 1+ H (Negative) Urine Glucose (UA) Negative (Negative) Urine Ketones Negative (Negative) Urine Blood 1+ H (Negative) Urine Nitrite Negative (Negative) Urine Bilirubin Negative (Negative) Urine Urobilinogen Negative (Negative) Ur Leukocyte Esterase 2+ H (Negative) Urine WBC (Auto) >30 H (0-5) /hpf Urine RBC (Auto) 5-10 H (0-4) /hpf U Hyaline Cast (Auto) Not Reportable U Epithel Cells (Auto) >30 H (0-5) /lpf Urine Bacteria (Auto) 1+ H (Negative) Urine Yeast Present A (None Prsent) 01/07/19 01/07/19 01/07/19 Range/Units 12:26 12:26 12:26 WBC (4.8-10.8) K/uL RBC (4.2-5.4) M/uL Hgb (12.0-16.0) g/dL Hct (37-47) % MCV (80-100) fL MCH (25-34) pg MCHC (32-36) g/dL RDW Std Deviation (36.4-46.3) fL RDW Coeff of Db (11.5-14.5) % Plt Count (130-400) K/uL MPV (7.4-10.4) fL Immature Gran % (Auto) % Neut % (Auto) % Lymph % (Auto) % [place] % (Auto) % Eos % (Auto) % Baso % (Auto) % Immature Gran # (Auto) (0.00-0.02) K/uL Neut # (Auto) (1.4-6.5) K/uL Lymph # (Auto) (1.2-3.4) K/uL [place] # (Auto) (0.11-0.59) K/uL Eos # (Auto) (0-0.5) K/uL Baso # (Auto) (0-0.2) K/uL PT 11.0 (9.0-12.0) Seconds INR 1.1 (0.9-1.1) APTT 23.5 (21.0-31.0) Seconds PTT Ratio 0.9 VBG pH VBG pCO2 VBG pO2 VBG HCO3 VBG O2 Saturation VBG Base Excess Barometric Pressure Sodium 135 L (136-145) mmol/L Potassium 3.6 (3.5-5.1) mmol/L Chloride 103 (98-107) mmol/L Carbon Dioxide 26 (21-32) mmol/L Anion Gap 6.0 (3-11) BUN 17 (7-18) mg/dl Creatinine 0.71 (0.6-1.2) mg/dl Est Cr Clr Drug Dosing Not Reportable Est GFR ( Amer) 97.9 Est GFR (Non-Af Amer) 84.5 BUN/Creatinine Ratio 24.2 H (10-20) Glucose 83 (70-99) mg/dl Lactate 1.3 (0.4-2.0) mmol/L Calcium 9.3 (8.5-10.1) mg/dl Phosphorus 3.1 (2.5-4.9) mg/dl Magnesium 1.8 (1.8-2.4) mg/dl Total Bilirubin 0.4 (0.2-1) mg/dl Direct Bilirubin 0.1 (0-0.2) mg/dl AST 17 (15-37) U/L ALT 24 (12-78) U/L Alkaline Phosphatase 122 H (45-117) U/L Troponin I (0-0.045) ng/ml Total Protein 7.7 (6.4-8.2) gm/dl Albumin 3.5 (3.4-5.0) gm/dl Globulin 4.2 H (2.5-4.0) gm/dl Albumin/Globulin Ratio 0.8 L (0.9-2) TSH 2.320 (0.300-4.500) uIu/ml Urine Color Urine Appearance (Clear) Urine pH (4.5-7.5) Ur Specific [place] (1.000-1.030) Urine Protein (Negative) Urine Glucose (UA) (Negative) Urine Ketones (Negative) Urine Blood (Negative) Urine Nitrite (Negative) Urine Bilirubin (Negative) Urine Urobilinogen (Negative) Ur Leukocyte Esterase (Negative) Urine WBC (Auto) (0-5) /hpf Urine RBC (Auto) (0-4) /hpf U Hyaline Cast (Auto) U Epithel Cells (Auto) (0-5) /lpf Urine Bacteria (Auto) (Negative) Urine Yeast (None Prsent) 01/07/19 Range/Units 12:26 WBC 4.69 L (4.8-10.8) K/uL RBC 4.15 L (4.2-5.4) M/uL Hgb 12.6 (12.0-16.0) g/dL Hct 38.0 (37-47) % MCV 91.6 (80-100) fL MCH 30.4 (25-34) pg MCHC 33.2 (32-36) g/dL RDW Std Deviation 44.7 (36.4-46.3) fL RDW Coeff of Db 13.4 (11.5-14.5) % Plt Count 253 (130-400) K/uL MPV 10.0 (7.4-10.4) fL Immature Gran % (Auto) 0.2 % Neut % (Auto) 52.9 % Lymph % (Auto) 29.2 % [place] % (Auto) 11.7 % Eos % (Auto) 5.1 % Baso % (Auto) 0.9 % Immature Gran # (Auto) 0.01 (0.00-0.02) K/uL Neut # (Auto) 2.48 (1.4-6.5) K/uL Lymph # (Auto) 1.37 (1.2-3.4) K/uL [place] # (Auto) 0.55 (0.11-0.59) K/uL Eos # (Auto) 0.24 (0-0.5) K/uL Baso # (Auto) 0.04 (0-0.2) K/uL PT (9.0-12.0) Seconds INR (0.9-1.1) APTT (21.0-31.0) Seconds PTT Ratio VBG pH VBG pCO2 VBG pO2 VBG HCO3 VBG O2 Saturation VBG Base Excess Barometric Pressure Sodium (136-145) mmol/L Potassium (3.5-5.1) mmol/L Chloride (98-107) mmol/L Carbon Dioxide (21-32) mmol/L Anion Gap (3-11) BUN (7-18) mg/dl Creatinine (0.6-1.2) mg/dl Est Cr Clr Drug Dosing Est GFR ( Amer) Est GFR (Non-Af Amer) BUN/Creatinine Ratio (10-20) Glucose (70-99) mg/dl Lactate (0.4-2.0) mmol/L Calcium (8.5-10.1) mg/dl Phosphorus (2.5-4.9) mg/dl Magnesium (1.8-2.4) mg/dl Total Bilirubin (0.2-1) mg/dl Direct Bilirubin (0-0.2) mg/dl AST (15-37) U/L ALT (12-78) U/L Alkaline Phosphatase (45-117) U/L Troponin I (0-0.045) ng/ml Total Protein (6.4-8.2) gm/dl Albumin (3.4-5.0) gm/dl Globulin (2.5-4.0) gm/dl Albumin/Globulin Ratio (0.9-2) TSH (0.300-4.500) uIu/ml Urine Color Urine Appearance (Clear) Urine pH (4.5-7.5) Ur Specific [place] (1.000-1.030) Urine Protein (Negative) Urine Glucose (UA) (Negative) Urine Ketones (Negative) Urine Blood (Negative) Urine Nitrite (Negative) Urine Bilirubin (Negative) Urine Urobilinogen (Negative) Ur Leukocyte Esterase (Negative) Urine WBC (Auto) (0-5) /hpf Urine RBC (Auto) (0-4) /hpf U Hyaline Cast (Auto) U Epithel Cells (Auto) (0-5) /lpf Urine Bacteria (Auto) (Negative) Urine Yeast (None Prsent)
--- NOTE | 2019-01-08 18:16 | Hospitalist Progress Note ---
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 twice daily x5 days Repeat Urine cx in the hospital grew enterococcus species Patient is afebrile in WNL Will follow urine sensitivity (5) Seizure disorder: Continue Lamictal, Keppra, carbamazepine no Seizure activity noted Stable (6) Compression deformity of vertebra: Possible related to Osteoporosis Noted on CT scan of abdomen pelvis Denies any pain Received Prolia injections (7) Chronic indwelling Alvarado catheter: Changed at beginning of every month Continue methenamine hippurate for prophylaxis (8) Hypothyroidism: TSH WNL Continue levothyroxine (9) Pulmonary fibrosis: CXR showed no acute finding No acute exacerbation Stable (10) 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 Mood/behavior stable (11) DVT prophylaxis: Lovenox, SCD, TEDS Disposition Will discharge tomorrow In case of emergency contact patient Brother and/or Sister adrienne Dorantes and Joyce Sanchez at [phone] Subjective Pt was seen and examined Lying in bed with no distress Pt closed her eyes, but able to say that she is not having any pain She did not eat much today When I asked her if she was hungry, she said no Denies any chest pain, palpitation, dizziness and SOB Physical Exam Physical Exam: General- No acute distress Head- atraumatic Eyes- PERRL, EOMI, ENT- oropharynx clear Neck- supple, no JVD Lungs- clear to auscultation Heart- regular rhythm; no murmur Abdomen- normal bowel sounds, soft, nontender Extremities- no calf tenderness Neuro- awake, no facial palsy; no dysarthria, move extremities Skin- warm & dry Results & Data Vital Signs (Past 12 Hours) Vital Signs Temp Pulse Pulse Resp BP Pulse Ox 01/08/19 12:23 37.0 C 75 18 135/78 96 01/08/19 07:39 37.4 C 103 H 19 138/89 92 01/08/19 07:25 69
[2019-01-08] MEDS: CALCIUM CARBONATE 1250MG TAB PO SCH (20:09)
[2019-01-09] MEDS: LEVOTHYROXINE SODIUM 100 MCG TABLET PO SCH (06:09)
[2019-01-09] MEDS: METHENAMINE HIPPURATE 1 GM TAB PO SCH ×2 (08:44→21:09)
[2019-01-09] MEDS: LINZESS~ORDER AWAITING ACTION SCH (08:44)
[2019-01-09] MEDS: lamoTRIgine 100 MG TAB PO SCH ×2 (08:44→21:05)
[2019-01-09] MEDS: lamoTRIgine 25 MG TAB PO SCH ×2 (08:45→21:05)
[2019-01-09] MEDS: levETIRAcetam 250 MG TAB PO SCH ×2 (08:45→21:04)
[2019-01-09] MEDS: MULTIVITAMIN TAB PO SCH (08:45)
[2019-01-09] MEDS: CARBITROL PO SCH ×2 (08:46→21:08)
[2019-01-09] MEDS: FLUTICASONE PROPIONATE NA SPR 16 GM BTL SCH (08:46)
[2019-01-09] MEDS: ENOXAPARIN INJ 40 MG/0.4 ML SYR SQ SCH (08:47)
[2019-01-09] MEDS: NITROFURANTOIN MONOHYDRATE 100 MG CAP PO SCH ×2 (08:47→21:08)
[2019-01-09] MEDS: ASPIRIN 81 MG CHEW PO SCH (08:48)
[2019-01-09] MEDS: POLYETHYLENE (MIRALAX) 17 GM PACK PO SCH ×2 (08:48→21:08)
--- NOTE | 2019-01-09 19:41 | Hospitalist Progress Note ---
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 twice daily x5 days Repeat Urine cx in the hospital grew enterococcus species Patient is afebrile in WNL Will follow urine sensitivity (5) Seizure disorder: Continue Lamictal, Keppra, carbamazepine no Seizure activity noted Stable (6) Compression deformity of vertebra: Possible related to Osteoporosis Noted on CT scan of abdomen pelvis Denies any pain Received Prolia injections (7) Chronic indwelling Alvarado catheter: Changed at beginning of every month Continue methenamine hippurate for prophylaxis (8) Hypothyroidism: TSH WNL Continue levothyroxine (9) Pulmonary fibrosis: CXR showed no acute finding No acute exacerbation Stable (10) 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 Mood/behavior stable (11) DVT prophylaxis: Lovenox, SCD, TEDS Disposition Will discharge tomorrow In case of emergency contact patient Brother and/or Sister adrienne Dorantes and Joyce Sanchez at [phone] Subjective Pt was seen and examined Today she is a little bit more alert She was able to push my hands away when i auscultated her She shook her her to say no for any questions that i asked her Physical Exam Physical Exam: General- No acute distress Head- atraumatic ENT- oropharynx clear Neck- supple, no JVD Lungs- clear to auscultation Heart- regular rhythm; no murmur Abdomen- normal bowel sounds, soft, nontender Extremities- no calf tenderness Neuro- awake, no facial palsy; no dysarthria, move extremities Skin- warm & dry Results & Data Vital Signs (Past 12 Hours) Vital Signs Temp Pulse Pulse Resp BP Pulse Ox 01/09/19 16:00 73 01/09/19 09:47 37.1 C 83 19 131/71 93
[2019-01-09] MEDS: CALCIUM CARBONATE 1250MG TAB PO SCH (21:08)
[2019-01-10] MEDS: LEVOTHYROXINE SODIUM 100 MCG TABLET PO SCH (06:15)
[2019-01-10] MEDS: NITROFURANTOIN MONOHYDRATE 100 MG CAP PO SCH (08:28)
[2019-01-10] MEDS: lamoTRIgine 100 MG TAB PO SCH (08:28)
[2019-01-10] MEDS: METHENAMINE HIPPURATE 1 GM TAB PO SCH (08:28)
[2019-01-10] MEDS: levETIRAcetam 250 MG TAB PO SCH (08:28)
[2019-01-10] MEDS: FLUTICASONE PROPIONATE NA SPR 16 GM BTL SCH (08:28)
[2019-01-10] MEDS: lamoTRIgine 25 MG TAB PO SCH (08:29)
[2019-01-10] MEDS: MULTIVITAMIN TAB PO SCH (08:29)
[2019-01-10] MEDS: CARBITROL PO SCH (08:30)
[2019-01-10] MEDS: ASPIRIN 81 MG CHEW PO SCH (08:37)
[2019-01-10] MEDS: POLYETHYLENE (MIRALAX) 17 GM PACK PO SCH (08:37)
[2019-01-10] MEDS: ENOXAPARIN INJ 40 MG/0.4 ML SYR SQ SCH (08:37)
--- NOTE | 2019-01-10 15:43 | Hospitalist Progress Note ---
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 twice daily x5 days Repeat Urine cx in the hospital grew enterococcus faecalis and brenda albicans Patient is afebrile in WNL Will complete course of Macrobid (5) Seizure disorder: Continue Lamictal, Keppra, carbamazepine no Seizure activity noted Stable (6) Compression deformity of vertebra: Possible related to Osteoporosis Noted on CT scan of abdomen pelvis Denies any pain Received Prolia injections (7) Chronic indwelling Alvarado catheter: Changed at beginning of every month Continue methenamine hippurate for prophylaxis (8) Hypothyroidism: TSH WNL Continue levothyroxine (9) Pulmonary fibrosis: CXR showed no acute finding No acute exacerbation Stable (10) 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 Mood/behavior stable (11) DVT prophylaxis: Lovenox, SCD, TEDS Disposition Will discharge today In case of emergency contact patient Brother and/or Sister adrienne Dorantes and Joyce Sanchez at [phone] Subjective Pt was seen and examined Lying in bed with no distress Pt is more awake today She was able to smile She is a wheelchair bound at her facility She shook her head for almost everything she looks very comfortable Physical Exam Physical Exam: General- No acute distress Head- atraumatic ENT- oropharynx clear Neck- supple, no JVD Lungs- clear to auscultation Heart- regular rhythm; no murmur Abdomen- normal bowel sounds, soft, nontender Extremities- no calf tenderness Neuro- awake, move extremities Skin- warm & dry Results & Data Vital Signs (Past 12 Hours) Vital Signs Temp Pulse Pulse Resp BP Pulse Ox 01/10/19 11:52 36.8 C 79 18 148/95 H 96 01/10/19 08:00 60
--- NOTE | 2019-01-12 22:20 | Discharge Summary ---
Date of Service January 10, 2019 Admission HPI Per Admitting Provider This is a 73-year-old female who has a significant past medical history of cerebral palsy with severe intellectual disability, hypothyroidism, pulmonary fibrosis, chronic constipation, chronic urinary retention with chronic indwelling Alvarado, recurrent UTI, history of seizure disorder, history of RLE DVT, osteoporosis who presents to [facility] ED secondary to near syncopal episode. Caregiver is at bedside. Caregiver provides history. Unable to obtain history from patient. For the past week patient has had overall decreased oral intake, decreased appetite. Approximately 1 week ago she developed upper respiratory symptoms including sinus congestion, rhinorrhea, cough. Patient was seen by PCP on 01/02. At that time she was diagnosed with urinary tract infection and placed on oral Cipro. She had follow-up appointment on 01/05 in which it was felt URI symptoms were improving. Her urine culture was still pending. Today when patient was in the bathroom caregiver noted patient to become very white, diaphoretic and cold and clammy as if she may pass out. At the time she did also move her bowels. She did not lose consciousness, fall or hit her head or have a syncopal episode. Caregiver denies any fever or complaints of pain. Feels URI symptoms have been improving. Continues to have decreased p.o. intake for approximate the past week. He has been moving her bowels regularly on a daily basis with taking MiraLAX twice daily, on softer and. No blood in stool or dark tarry stools noted. She continues to have chronic indwelling Alvarado in place which is changed monthly at the beginning of the month by home health nurses. Caregiver elicits no recent seizure activity. Admission Exam Per Admitting Provider Gen: WD/WN, elderly, female, lying in bed, severe intellectual disability Head: Normocephalic, Atraumatic Eyes: Sclera normal, no conjunctival injection, PERRLA, conjugate gaze ENT: Gross hearing intact, normal pharynx, mucous membranes moist Neck: supple, no adenopathy, No JVD, no bruit, Resp: Clear to auscultation b/l, no wheeze, rales, rhonchi. Poor inspiratory effort but otherwise normal insp/exp effort, no accessory muscle use CV: Regular rate, regular rhythm, no murmur, rub, gallop, or ectopy Abd: Slight distended abdomen, +BS x 4, soft, nontender, nondistended Musculoskeletal: Left upper extremity flexion contracture, moves right upper extremity willingly. Unable to assess strength given cognitive status. Extremities: Trace lymphedema bilateral lower extremities. Bilateral pedal pulses +1 and equal. No erythema, warmth Skin: warm, moist, no rash, negative turgor, cap refill < 2sec Neuro: Patient is alert but not oriented, flat mood/affect, cran nerve 2-12 intact grossly : Positive Alvarado catheter draining yellow urine Principal Diagnosis Near syncope Dehydration Proctitis UTI (urinary tract infection) Seizure disorder Compression deformity of vertebra Chronic indwelling Alvarado catheter Hypothyroidism Intellectual disability Pulmonary disability Discharge Exam Gen: WD/WN, elderly, female, lying in bed, severe intellectual disability Head: Normocephalic, Atraumatic Eyes: Sclera normal, no conjunctival injection, PERRLA, conjugate gaze ENT: Gross hearing intact, normal pharynx, mucous membranes moist Neck: supple, no adenopathy, No JVD, no bruit, Resp: Clear to auscultation b/l, no wheeze, rales, rhonchi. Poor inspiratory effort but otherwise normal insp/exp effort, no accessory muscle use CV: Regular rate, regular rhythm, no murmur, rub, gallop, or ectopy Abd: Slight distended abdomen, +BS x 4, soft, nontender, nondistended Musculoskeletal: Left upper extremity flexion contracture, moves right upper extremity willingly. Unable to assess strength given cognitive status. Extremities: Trace lymphedema bilateral lower extremities. Bilateral pedal pulses +1 and equal. No erythema, warmth Skin: warm, moist, no rash, negative turgor, cap refill < 2sec Neuro: Patient is alert but not oriented, flat mood/affect, cran nerve 2-12 intact grossly : Positive Alvarado catheter draining yellow urine Discharge Data Allergies Allergy/AdvReac Type Severity Reaction Status Date / Time No Known Allergies Allergy Unknown Verified 06/11/18 08:17 Consultations 01/07/19 14:57 ED Decision to Admit Stat 01/07/19 15:47 Consult Gastroenterology Routine 01/07/19 17:12 Consult Case Management - Discharge Planning Routine Ordered Studies 01/07/19 11:48 CT abd pelvis IV con only Stat CT head/brain wo con Stat CT head/brain wo con CLINICAL HISTORY: ams COMPARISON STUDY: 07/17/2017 TECHNIQUE: Axial CT of the brain is performed from the vertex to the skull base. IV contrast was not administered for this examination. A dose lowering technique was utilized adhering to the principles of ALARA. CT DOSE: 1457.65 mGy.cm FINDINGS: No intra or extra-axial mass lesions are visualized. There is no CT evidence of acute cortical infarction. There is no evidence of midline shift. There is no acute hemorrhage. No calvarial fractures are visualized. There is apparent absence of the corpus callosum and septum pellucidum. There is a dilated lateral ventricle unchanged from the preceding study. There is stable cerebellar atrophy. There is a sphenoid sinus air-fluid level, smaller than on the preceding study. IMPRESSION: 1. 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 No acute intracranial findings Electronically signed by: Ivan Fam M.D. 01/07/2019 1:50 PM Dictated: 01/07/19 1344 Transcribed: 01/07/[address] abd pelvis IV con only CLINICAL HISTORY: 73 years-old Female presenting with abd distension fever. TECHNIQUE: Multidetector CT of the abdomen and pelvis was performed after the administration of intravenous contrast. IV contrast: 94 mL of Optiray 320. One or more dose lowering techniques were used consistent with the principles of ALARA (as low as reasonably achievable), including automatic exposure control, mA or kV adjustment to individual patient size, and/or use of iterative reconstruction. COMPARISON: 10/11/2018. CT DOSE (mGy.cm): The estimated cumulative dose is 1457.65. FINDINGS: Foam Rubber Mixer topogram: Unremarkable. Lung bases: Multichamber enlargement of the heart. Coronary artery, aortic valve, and mitral annular calcification. No pericardial or pleural effusion. Extensive cystic change and reticular opacities at the lung bases greater on the right. Bronchiectasis and a lesser degree of fibrotic changes on the left. Liver: Congenital hypoplasia of the medial segments of the left hepatic lobe. No focal lesion. Patent hepatic vasculature. Biliary: No intrahepatic or extrahepatic biliary ductal dilatation. Normal gallbladder. Pancreas: Normal. Spleen: Deformity of the spleen may suggest prior trauma or infarct. Adrenal glands: Normal. Kidneys and ureters: Normal. No hydronephrosis. Bladder: Decompressed with a Alvarado catheter. Double hyperdensities in the bladder lumen as on prior exam, presumably cast-like bladder calculi. Pelvic organs: Poorly visualized uterus. Bowel: Markedly distended rectum with circumferential wall thickening. Sigmoid colon is distended with gas. Mild wall thickening of the cecum and a limited portion. The appendix contains gas and fluid and is normal in diameter. An air- fluid level may be present in the appendix (series 5 image 267), which is equivocal for appendicitis. No periappendiceal fat infiltration. No bowel obstruction. Peritoneal cavity: No free fluid or intraperitoneal gas. Lymph nodes: No enlarged lymph nodes in the abdomen or pelvis. Vasculature: Atherosclerosis of the normal caliber abdominal aorta. IVC patent. Abdominal wall: Diastasis of the rectus abdominis. Musculoskeletal: Right hip arthroplasty. Degenerative changes of the spine. Mild compression deformities of L2, T11, T12. These are unchanged from prior. Osteopenia. IMPRESSION: 1. Distended rectum with circumferential wall thickening consistent with proctitis, likely on an infectious or inflammatory basis. No bowel obstruction. 2. No convincing evidence of appendicitis given the normal appendiceal diameter and absence of significant periappendiceal fat infiltration. Correlate clinically to ensure the absence of right lower quadrant pain. 3. Numerous cast like bladder calculi. 4. Chronic fibrotic changes at the lung bases. 5. Multiple chronic mild compression deformities in the setting of osteopenia. Electronically signed by: Lopez Weiss M.D. 01/07/2019 1:55 PM Dictated: 01/07/19 1344 Transcribed: 01/07/19 1346 XR chest 1V portable CLINICAL HISTORY: Sepsis COMPARISON STUDY: 10/11/2018 FINDINGS: The study is limited from a technical standpoint. The patient is rotated and listing to the right. The heart is borderline enlarged. There are interstitial fibrotic changes similar to the prior study. There is no lobar consolidation.[ IMPRESSION: 1. Stable findings 2. Stable asymmetric interstitial lung disease. 3. Rotated study Electronically signed by: Ivan Fam M.D. 01/07/2019 12:48 PM Dictated: 01/07/19 1247 Transcribed: 01/07/19 1247 Hospital Course (1) Near syncope: Symptoms occurred during BM Possible related to orthostatic hypotension VS vasovagal Low BP in the ER CT head showed no acute intracranial abnormality Continue Neuro check Fall precaution Wheelchair bound as per physical therapy Resolved (2) Dehydration: Possible due to poor oral intake Will encourage staff to help to feed her Stable (3) Proctitis: CT abd/pelvis showed revealed inflammatory versus infectious rectosigmoid proctitis, no bowel obstruction Surgery on board recommended no surgical intervention Gastro on board recommended bowel regimen with Linzess and Miralax daily If symptoms worsening, will repeat KUB Denies any symptoms (4) UTI (urinary tract infection): Urine culture obtained on 01/02, results returned on 01/05 Initially started on Cipro and transitioned to Macrobid per sensitivity transitioned to Macrobid 100 mg p.o. twice daily x5 days Repeat Urine cx in the hospital grew enterococcus faecalis and brenda albicans Patient is afebrile in WNL Will complete course of Macrobid (5) Seizure disorder: Continue Lamictal, Keppra, carbamazepine no Seizure activity noted Stable (6) Compression deformity of vertebra: Possible related to Osteoporosis Noted on CT scan of abdomen pelvis Denies any pain Received Prolia injections (7) Chronic indwelling Alvarado catheter: Changed at beginning of every month Continue methenamine hippurate for prophylaxis (8) Hypothyroidism: TSH WNL Continue levothyroxine (9) Pulmonary fibrosis: CXR showed no acute finding No acute exacerbation Stable (10) 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 Mood/behavior stable (11) DVT prophylaxis: Lovenox, SCD, TEDS Disposition Will discharge today In case of emergency contact patient Brother and/or Sister adrienne Dorantes and Joyce Sanchez at [phone] Total Time Total Time Spent Total Time Spent (In Minutes): 35 minutes Total Time Includes: Examination of the Patient, Discharge Planning, Medication Reconciliation, Communication With Other Providers and Other Discharge Plan Discharge Items Patient Disposition: Home - Home Health Services Reason For Visit: NEAR SYNCOPAL EPISODE Discharge Diagnosis: Near syncope Dehydration Proctitis UTI (urinary tract infection) Seizure disorder Compression deformity of vertebra Chronic indwelling Alvarado catheter Hypothyroidism Intellectual disability Pulmonary disability Discharge Goals: Decrease discomfort Activity: Resume your previous activity Activity Comment: As tolerated Non-emergency contact: Primary Care Provider Call non-emergency contact if: you have any medication questions Follow-up/Referrals: Lora Carvalho, [Primary Care Provider] - Diet: Heart Healthy Addtl Provider Instructions: Please follow up with your primary care provider within 1 week at [facility] Staff should encourage and helping her with eating and drinking Fall precaution Aspiration precaution Seizure precaution Continue Macrobid for 3 more days Monitor your blood pressure Prescriptions: Continued multivitamin [Multiple Vitamins] Tablet 1 tab PO QAM Qty: 0 RF: 0 acetaminophen 325 mg Tablet 650 mg PO Q4 MDD 3gm/24hr PRN (Reason: Pain) Qty: 0 RF: 0 carbamazepine [Carbatrol] 300 mg Capsule, Er Multiphase 12 Hr 300 mg PO BID Qty: 0 RF: 0 calcium carbonate [Oyster Shell Calcium 500] 500 mg calcium (1,250 mg) Tablet 1 tab PO HS Qty: 0 RF: 0 Aloe [place] 43 % Ointment 1 applic TOPICAL BID Qty: 0 RF: 0 levothyroxine 100 mcg Tablet 100 mcg PO QAM Qty: 0 RF: 0 hydrocortisone [Anusol-HC] 2.5 % Cream With Perineal Applicator 1 applic MA BID PRN (Reason: hemorrhoids) 7 Days Qty: 30 RF: 0 methenamine hippurate 1 gram Tablet 1 g PO BID Qty: 0 RF: 0 aspirin 81 mg Tablet,Chewable 81 mg PO QAM Qty: 0 RF: 0 metronidazole [Metrogel] 1 % Gel 1 applic TOPICAL DAILY Qty: 0 RF: 0 Prolia 60 mg/mL Syringe 60 mg subcut UD Qty: 0 RF: 0 Robitussin Cough-Chest Mariano DM 5-100 mg/5 mL Liquid 10 ml PO Q4H PRN (Reason: Cold Symptoms) Qty: 0 RF: 0 lamotrigine [Lamictal] 150 mg Tablet 300 mg PO BID RF: 0 polyethylene glycol 3350 [Miralax] 17 gram Powder In Packet 17 g PO BID RF: 0 linaclotide 290 mcg Capsule 290 mcg PO QAM RF: 0 fluticasone propionate 50 mcg/actuation [place],Suspension 2 spray INTRANASAL DAILY RF: 0 levetiracetam 750 mg tablet 750 mg PO BID RF: 0 lamotrigine 100 mg tablet 50 mg PO BID RF: 0 nitrofurantoin monohyd/m-cryst [Macrobid] 100 mg Capsule 100 mg PO Q12H RF: 0 Stand-Alone Forms: [facility] Discharge Orders: Discharge Order (Routine); Ordered 01/10/19 Ordered By: Lul Oshea Admission Data Admit Date/Time: 01/07/19 15:42 Attending Provider: Lul Oshea Admit Provider: Sterling Hidalgo Primary Care Provider: Lora Carvalho Other Providers: Rashaun Win ; Sterling Hidalgo Service: Telemetry Medical Other Interventions: Discharge Summary Assessment (RN) Last Done: 01/10/19 16:55 DC Date/Time DO NOT enter until pt leaves facility: 01/10/19 18:47
== END 2019-01-10 18:47 | disposition home health service (06) ==
LOC: 2N 11:06 → ED 11:06 → 2N 16:15 → 2W 19:15

== ENCOUNTER 2020-01-06 23:24 | Inpatient (IN) ==
[2020-01-06] MEDS ORDERED: haloperidoL 5 MG TAB PO STA (23:31)
[2020-01-06] MEDS ORDERED: HALOPERIDOL LACTATE 5 MG/ML 1 ML VIAL IM STA (23:42)
[2020-01-06] MEDS ORDERED: ONDANSETRON INJ 2 MG/ML 2 ML VIAL IV STA (23:49)
[2020-01-07 00:15] LABS: Basophils # (auto) 0.02 K/uL (0-0.2); Basophils % (auto) 0.3 %; Eosinophils # (auto) 0.15 K/uL (0-0.5); Eosinophils % (auto) 2.5 %; Hematocrit (blood only) 39.8 % (37-47); Hemoglobin 13.1 g/dL (12.0-16.0); Immature Granulocytes # (auto) 0.02 K/uL (0.00-0.02); Immature Granulocytes % (auto) 0.3 %; Lymphocytes # (auto) 1.68 K/uL (1.2-3.4); Lymphocytes % (auto) 28.1 %; Mean Corpuscular Hemoglobin 29.8 pg (25-34); Mean Corpuscular Hgb Conc 32.9 g/dL (32-36); Mean Corpuscular Volume 90.7 fL (80-100); Mean Platelet Volume 9.8 fL (7.4-10.4); Monocytes # (auto) 0.59 K/uL (0.11-0.59); Monocytes % (auto) 9.9 %; Neutrophils # (auto) 3.52 K/uL (1.4-6.5); Neutrophils % (auto) 58.9 %; Platelet Count 307 K/uL (130-400); RDW Coefficient of Variation 12.7 % (11.5-14.5); RDW Standard Deviation 42.1 fL (36.4-46.3); Red Blood Count 4.39 M/uL (4.2-5.4); White Blood Count 5.98 K/uL (4.8-10.8)
[2020-01-07 00:26] LABS: Partial Thromboplastin Ratio 0.9; Partial Thromboplastin Time 25.4 Seconds (21.0-31.0); Prothrombin Time 10.4 Seconds (9.0-12.0)
[2020-01-07 00:33] LABS: Alanine Aminotransferase 27 U/L (12-78); Albumin Level 3.9 gm/dl (3.4-5.0); Aspartate Aminotransferase 17 U/L (15-37); BUN Creatinine Ratio 14.9 (10-20); Blood Urea Nitrogen 14 mg/dl (7-18); Calcium 10.3 mg/dl (8.5-10.1); Carbon Dioxide 32 mmol/L (21-32); Chloride 89 mmol/L (98-107); Est GFR (African American) 68.4; Glucose 95 mg/dl (70-99); Potassium 3.9 mmol/L (3.5-5.1); Sodium 127 mmol/L (136-145)
[2020-01-07 00:37] LABS: Albumin Globulin Ratio 0.8 (0.9-2); Alkaline Phosphatase 153 U/L (45-117); Bilirubin,Total 0.4 mg/dl (0.2-1); Globulin 4.9 gm/dl (2.5-4.0); Total Protein 8.8 gm/dl (6.4-8.2); Troponin I < 0.015 ng/ml (0-0.045)
[2020-01-07] MEDS ORDERED: IOVERSOL 100ml IV PRN (01:17)
[2020-01-07] MEDS ORDERED: FUROSEMIDE 40 MG/4 ML VIAL IV STA (01:49)
[2020-01-07 02:06] LABS: NT Pro B Type Natriuretic Pept 391 pg/ml (0-900)
--- NOTE | 2020-01-07 02:46 | History & Physical Report ---
Date of Service January 07, 2020 Assessment & Plan (1) Encephalopathy: hx intellectual impairment/cerebral palsy Multifactorial : Hyponatremia, hx CHF on Lasix (patient on the dry side ) supratherapeutic carbamazepine levels possibly contributory Complicated UTI, hx urinary retention chronic indwelling Alvarado catheter, recurrent UTIs on chronic methenamine suppression Rx (Patient currently not septic.) interstitial lung disease as per records, pulmonary status at baseline seizure disorder, stable as per recent outpatient [facility] Neurology follow-up visit from 2 weeks ago. hypothyroidism, euthyroid as of today's TSH hx DVT as per records Medical telemetry Hold Lasix for now, NSS 500 cc bolus now then stop. Careful correction of sodium Hyponatremia work-up Nephrology consult RE hyponatremia Follow urine cultures, IV Zosyn (hx Enterococcus, enteric gram-negative organisms on review of microbiologic history) Appropriate to hold carbamazepine for now given supratherapeutic level, recheck level tomorrow a.m. DVT prophylaxis Lovenox subcu Full code as per sister/POA, Kelley Joyce Laura. She requests updates from providers thru [phone]. Text document was generated using [employer] voice recognition software. It may contain grammatical or spelling errors. Kindly contact undersigned for clarification of any documentation item in question. History of Present Illness Chief Complaint: Agitation as per records Primary Care Provider: Lora Carvalho, DO History obtained from patient caregiver and records. Unable to obtain history from patient secondary to intellectual impairment/sedation. Medical history significant for chronic diastolic HF as per records (65 to 70%, TTE 2019), interstitial lung disease as per records, seizure disorder, cerebral palsy/intellectual impairment, hypothyroidism, urinary retention with a chronic indwelling Alvarado catheter, recurrent UTIs on chronic methenamine suppression Rx, history DVT as per records. Last confinement July 2019 for respiratory failure secondary to decompensated heart failure. Some weight gain noted at home the last few days. No complaints of chest pain, S OB as per staff. Additional Lasix dose ordered by PCP as per caregiver. Yesterday patient noted to be agitated and yelling out. Episode of emesis. No cough, diarrhea symptoms noted. No respiratory distress noted at home as per staff. At the ER, patient given Haldol for agitation. Lasix given for possible CHF. MEDICAL HISTORY: As above. SURGICAL HISTORY: She had hip replacement on the right, urologic procedure. FAMILY HISTORY: Heart disease PERSONAL/ SOCIAL HISTORY: Nonsmoker. nursing home resident. Allergies Allergy/AdvReac Type Severity Reaction Status Date / Time No Known Allergies Allergy Unknown Verified 01/07/20 00:15 Home Medications Home Medications Medication Instructions Recorded Confirmed Type multivitamin [Multiple Vitamins] 1 tab PO QAM #0 02/27/11 01/07/20 History carbamazepine [Carbatrol] 300 mg PO BID #0 06/29/12 01/07/20 History Aloe [place] Protectant Ointment 1 applic TOPICAL BID #0 11/11/14 01/07/20 History Prolia 60 mg SUBCUT UD #0 07/17/17 01/07/20 History aspirin 81 mg PO QAM #0 07/17/17 01/07/20 History levothyroxine 100 mcg PO QAM #0 07/17/17 01/07/20 History methenamine hippurate 1 g PO BID #0 07/17/17 01/07/20 History Linzess 290 mcg PO QAM 06/11/18 01/07/20 History lamotrigine [Lamictal] 300 mg PO BID 06/11/18 01/07/20 History polyethylene glycol 3350 [Miralax] 17 g PO BID 06/11/18 01/07/20 History fluticasone propionate 2 spray INTRANASAL DAILY 10/11/18 01/07/20 History lamotrigine 50 mg PO BID 10/11/18 01/07/20 History levetiracetam 750 mg PO BID 10/11/18 01/07/20 History cholecalciferol (vitamin D3) 50 2,000 units PO QAM 08/20/19 01/07/20 History mcg (2,000 unit) capsule metronidazole 1 applic TOPICAL BID 11/20/19 01/07/20 History furosemide 20 mg tablet 20 mg PO BID tab 12/22/19 01/07/20 History acetaminophen [Tylenol] 650 mg PO Q4H PRN MDD max 3 gms/24h 01/07/20 01/07/20 History dextromethorphan-guaifenesin 10 ml PO Q4H PRN 01/07/20 01/07/20 History [Robitussin Cough-Chest Mariano DM] guaifenesin [Mucinex] 600 mg PO Q12H PRN 01/07/20 01/07/20 History hydrocortisone [Proctozone-HC] 1 applic MT BID PRN 01/07/20 01/07/20 History sagvnrnj-[id number]-ufenugskK 1 applic TOPICAL DIRECTED 01/07/20 01/07/20 History [Triple Antibiotic] Past Med/Surg History Social History Preferred Language: Kosovan Communication Ability: Impaired Cotton Presser Required: No Beliefs That Will Affect Care: None marital status: Single Current Living Situation: Personal Care Facility Current Living Situation Comment: [facility] Feels Safe at Home: Yes Smoking Status: Never smoker Hx Alcohol Use: No Hx Substance Use: No Review of Systems Review of Systems: Could not be reliably obtained Physical Exam Physical Exam: GENERAL: Lethargic, occasionally crying out, no respiratory distress SKIN: Normal color, warm HEENT: Antonito palpebral conjunctivae, no ptosis, dry buccal mucosa NECK : Supple, no tenderness CHEST : CTA, no tenderness HEART : RRR, no obvious murmurs ABDOMEN: Some distention, minimal hypogastric tenderness EXTREMITIES : Chronic left upper extremity contracture, no LE swelling/tenderness NEUROLOGIC : Lethargic , no facial asymmetry, no other gross focality Results & Data Results & Data ([facility]) Vital Signs (Past 12 Hours) Vital Signs Temp Pulse Pulse Resp BP BP Pulse Ox 01/07/20 01:00 101 H 16 188/111 H 98 01/07/20 00:48 95 01/06/20 23:37 37.1 C 94 H 16 177/118 H 95 Laboratory Results Laboratory Results WBC 5.98 K/uL (4.8-10.8) 01/06/20 23:58 RBC 4.39 M/uL (4.2-5.4) 01/06/20 23:58 Hgb 13.1 g/dL (12.0-16.0) 01/06/20 23:58 Hct 39.8 % (37-47) 01/06/20 23:58 MCV 90.7 fL (80-100) 01/06/20 23:58 MCH 29.8 pg (25-34) 01/06/20 23:58 MCHC 32.9 g/dL (32-36) 01/06/20 23:58 RDW Std Deviation 42.1 fL (36.4-46.3) 01/06/20 23:58 RDW Coeff of Db 12.7 % (11.5-14.5) 01/06/20 23:58 Plt Count 307 K/uL (130-400) 01/06/20 23:58 MPV 9.8 fL (7.4-10.4) 01/06/20 23:58 Immature Gran % (Auto) 0.3 % 01/06/20 23:58 Neut % (Auto) 58.9 % 01/06/20 23:58 Lymph % (Auto) 28.1 % 01/06/20 23:58 [place] % (Auto) 9.9 % 01/06/20 23:58 Eos % (Auto) 2.5 % 01/06/20 23:58 Baso % (Auto) 0.3 % 01/06/20 23:58 Neut # (Auto) 3.52 K/uL (1.4-6.5) 01/06/20 23:58 Lymph # (Auto) 1.68 K/uL (1.2-3.4) 01/06/20 23:58 Weston # (Auto) 0.59 K/uL (0.11-0.59) 01/06/20 23:58 Eos # (Auto) 0.15 K/uL (0-0.5) 01/06/20 23:58 Baso # (Auto) 0.02 K/uL (0-0.2) 01/06/20 23:58 Immature Gran # (Auto) 0.02 K/uL (0.00-0.02) 01/06/20 23:58 PT 10.4 Seconds (9.0-12.0) 01/06/20 23:58 INR 1.0 (0.9-1.1) 01/06/20 23:58 APTT 25.4 Seconds (21.0-31.0) 01/06/20 23:58 PTT Ratio 0.9 01/06/20 23:58 Sodium 127 mmol/L (136-145) L 01/06/20 23:58 Potassium 3.9 mmol/L (3.5-5.1) 01/06/20 23:58 Chloride 89 mmol/L (98-107) L 01/06/20 23:58 Carbon Dioxide 32 mmol/L (21-32) 01/06/20 23:58 Anion Gap 6.0 (3-11) 01/06/20 23:58 BUN 14 mg/dl (7-18) 01/06/20 23:58 Creatinine 0.95 mg/dl (0.6-1.2) 01/06/20 23:58 Est Cr Clr Drug Dosing Not Reportable 01/06/20 23:58 Est GFR ( Amer) 68.4 01/06/20 23:58 Est GFR (Non-Af Amer) 59.0 01/06/20 23:58 BUN/Creatinine Ratio 14.9 (10-20) 01/06/20 23:58 Glucose 95 mg/dl (70-99) 01/06/20 23:58 Osmolality 275 mOsm/kg (280-300) L 01/06/20 23:58 Lactate 1.4 mmol/L (0.4-2.0) 01/06/20 23:58 Calcium 10.3 mg/dl (8.5-10.1) H 01/06/20 23:58 Magnesium 2.0 mg/dl (1.8-2.4) 01/06/20 23:58 Total Bilirubin 0.4 mg/dl (0.2-1) 01/06/20 23:58 AST 17 U/L (15-37) 01/06/20 23:58 ALT 27 U/L (12-78) 01/06/20 23:58 Alkaline Phosphatase 153 U/L (45-117) H 01/06/20 23:58 Troponin I < 0.015 ng/ml (0-0.045) 01/06/20 23:58 NT-Pro-B Natriuret Pep 391 pg/ml (0-900) 01/06/20 23:58 Total Protein 8.8 gm/dl (6.4-8.2) H 01/06/20 23:58 Albumin 3.9 gm/dl (3.4-5.0) 01/06/20 23:58 Globulin 4.9 gm/dl (2.5-4.0) H 01/06/20 23:58 Albumin/Globulin Ratio 0.8 (0.9-2) L 01/06/20 23:58 Procalcitonin < 0.05 ng/ml (0-0.5) 01/06/20 23:[address] head initial read: No intracranial hemorrhage, midline shift or new mass-effect. Atrophic changes. CT abdomen pelvis initial read: Asymmetric mucosal prominence distal rectosigmoid colon (inflammatory or infectious colitis). Gaseous distention sigmoid colon. No obvious volvulus. Small bowel unremarkable. Multiple bladder stones noted layering posteriorly in the bladder. Decompressed gallbladder. Chest x-ray as per my interpretation interstitial lung disease, elevated right hemidiaphragm EKG as per my interpretation : Rate 95, NSR, normal axis, no ischemia
[2020-01-07] MEDS ORDERED: SODIUM CHLORIDE 0.9% 500 ML IV ONE (02:49)
[2020-01-07 03:48] LABS: Appearance Urine Cloudy (Clear); Bacteria Urine Automated 1+ (Negative); Bilirubin Urine Negative (Negative); Blood Urine 1+ (Negative); Color Urine Yellow; Epithelial Cell Urine Auto 0-5 /lpf (0-5); Glucose Urine UA Negative (Negative); Ketones Urine Negative (Negative); Leukocyte Esterase Urine 2+ (Negative); Nitrite Urine Negative (Negative); RBC Urine Automated 0-4 /hpf (0-4); Specific Gravity Urine 1.017 (1.000-1.030); Urobilinogen Urine Negative (Negative); pH Urine 8.5 (4.5-7.5)
[2020-01-07] MEDS ORDERED: ACETAMINOPHEN 325 MG TAB PO PRN (04:14)
[2020-01-07] MEDS ORDERED: PROMETHAZINE HCL 12.5 MG in SODIUM CHLORIDE 0.9% 50 ML IV PRN (04:14)
[2020-01-07] MEDS ORDERED: OLANZapine 10 MG/2.1 ML SDV IM PRN (04:14)
[2020-01-07 04:19] LABS: Protein Urine Trace (Negative); Sulfosalicylic Acid Urine Positive (Negative)
[2020-01-07] MEDS ORDERED: PATIENT'S WEIGHT NEEDED SCH (05:15)
[2020-01-07] MEDS ORDERED: PIPERACILL/TAZOBAC CONSULT ACTIVE PRN (05:34)
[2020-01-07] MEDS ORDERED: ACETAMINOPHEN 1000 MG/100 ML IV IV ONE (05:36)
[2020-01-07] MEDS ORDERED: PIPERACILLIN/TAZOBACTAM 4.5 GM in DEXTROSE 5% 100 ML IV ONE (05:45)
[2020-01-07 06:45] LABS: Basophils # (auto) 0.04 K/uL (0-0.2); Basophils % (auto) 0.5 %; Eosinophils # (auto) 0.14 K/uL (0-0.5); Eosinophils % (auto) 1.8 %; Hematocrit (blood only) 36.3 % (37-47); Hemoglobin 11.8 g/dL (12.0-16.0); Immature Granulocytes # (auto) 0.01 K/uL (0.00-0.02); Immature Granulocytes % (auto) 0.1 %; Lymphocytes # (auto) 1.88 K/uL (1.2-3.4); Lymphocytes % (auto) 23.8 %; Mean Corpuscular Hemoglobin 29.6 pg (25-34); Mean Corpuscular Hgb Conc 32.5 g/dL (32-36); Mean Platelet Volume 10.3 fL (7.4-10.4); Monocytes # (auto) 0.79 K/uL (0.11-0.59); Neutrophils # (auto) 5.04 K/uL (1.4-6.5); Neutrophils % (auto) 63.8 %; Platelet Count 284 K/uL (130-400); RDW Coefficient of Variation 12.9 % (11.5-14.5); RDW Standard Deviation 42.8 fL (36.4-46.3); Red Blood Count 3.99 M/uL (4.2-5.4)
--- NOTE | 2020-01-07 06:47 | CT Scan Report ---
CT OF THE ABDOMEN AND PELVIS WITH CONTRAST CLINICAL HISTORY: Emesis. Abdominal pain. COMPARISON STUDY: CT of the abdomen and pelvis January 07, 2019. TECHNIQUE: Following IV administration of 92 mL of Optiray-320, axial images of the abdomen and pelvi s were obtained from the lung bases to the proximal femurs. Images were reviewed in the axial, sagitt al, and coronal planes. IV contrast was administered without complication. Automated exposure contro l was utilized for the study. A dose lowering technique was utilized adhering to the principles of A WILEY. CT DOSE: 897.41 mGycm FINDINGS: Fibrotic changes are noted within the lung bases. No pneumatosis, free air or portal venous gas is present. This exam is mildly compromised by artifact. The liver, spleen, adrenal glands, kidn eys and pancreas are unremarkable. Is no biliary or pancreatic ductal dilatation. There is no peripan creatic or pericholecystic infiltration. There is mild rectosigmoid wall thickening. Moderate distent ion of the sigmoid colon is noted. There is no evidence for a volvulus. The appendix is normal. No ad ditional sites of bowel wall thickening are noted. Major vasculature is patent. Old L2 compression fr acture is noted. Bladder is mildly distended. Alvarado balloon within the bladder is noted. There are nu merous bladder calculi. IMPRESSION: 1. Mild rectosigmoid wall thickening which suggests a nonspecific proctocolitis. 2. Moderate distention of the sigmoid colon without evidence for a volvulus. No evidence for a bowel obstruction. 3. Multiple bladder calculi. ACT 112: Negative or not required by law. Electronically signed by: Jacobo Falk M.D. 01/07/2020 6:45 AM
--- NOTE | 2020-01-07 06:49 | XRay Report ---
XR chest 1V portable CLINICAL HISTORY: Sepsis. COMPARISON STUDY: Chest radiograph December 28, 2019. FINDINGS: Elevation of the right hemidiaphragm is unchanged. Interstitial thickening is unchanged and suggests underlying interstitial lung disease. Cardiomediastinal silhouette is stable. Patient is ro tated. No superimposed consolidation is noted. There is no pneumothorax or pleural effusion. IMPRESSION: 1. No acute findings. Interstitial thickening consistent with interstitial lung disease. No evidence for superimposed consolidation. 2. Stable elevation of the right hemidiaphragm. ACT 112: Negative or not required by law. Electronically signed by: Jacobo Falk M.D. 01/07/2020 6:47 AM
--- NOTE | 2020-01-07 07:09 | CT Scan Report ---
HEAD CT NONCONTRAST CT DOSE: 1642.00 mGycm HISTORY: Altered mental status. TECHNIQUE: Multiaxial CT images of the head were performed without the use of intravenous contrast. A utomated exposure control was utilized for this study. A dose lowering technique was utilized adheri ng to the principles of ALARA. Comparison: Head CT 01/07/2019. Findings: Trace fluid level within the left sphenoid sinus, unchanged. There is no mass, hematoma, mi dline shift, or acute infarct. There is again noted absence of the corpus callosum and septum pelluci dum with cerebellar atrophy. These are consistent with chronic congenital anomalies. Impression: No significant change compared to the prior study. No acute intracranial abnormality. Stable congenit al anomalies as described above. ACT 112: Negative or not required by law. Electronically signed by: Juan Carlos Garcia M.D. 01/07/2020 7:08 AM
[2020-01-07 07:12] LABS: BUN Creatinine Ratio 14.9 (10-20); Calcium 9.5 mg/dl (8.5-10.1); Creatinine Clr Calc Pharmacy 49.5 ml/min; Est GFR (African American) 66.7; Est GFR (Non-African American) 57.5; Potassium 3.6 mmol/L (3.5-5.1)
[2020-01-07] MEDS ORDERED: WHITE PETROLATUM TOP SCH (09:00)
[2020-01-07] MEDS ORDERED: ENOXAPARIN INJ 30 MG/0.3 ML SYR SQ SCH (09:00)
[2020-01-07] MEDS: levETIRAcetam 250 MG TAB PO SCH ×2 (13:24→21:49)
[2020-01-07] MEDS: lamoTRIgine 25 MG TAB PO SCH ×2 (13:24→21:49)
[2020-01-07] MEDS: MULTIVITAMIN TAB PO SCH (13:24)
[2020-01-07] MEDS: lamoTRIgine 100 MG TAB PO SCH ×2 (13:24→21:48)
[2020-01-07] MEDS: ASPIRIN 81 MG ECTAB PO SCH (13:24)
[2020-01-07] MEDS: POLYETHYLENE (MIRALAX) 17 GM PACK PO SCH ×2 (13:24→21:42)
[2020-01-07] MEDS: FLUTICASONE PROPIONATE NA SPR 16 GM BTL SCH (13:24)
[2020-01-07] MEDS: LEVOTHYROXINE SODIUM 100 MCG TABLET PO SCH (13:24)
[2020-01-07] MEDS: PIPERACILLIN/TAZOBACTAM 3.375 GM in DEXTROSE 5% 100 ML IV SCH ×2 (13:28→21:43)
--- NOTE | 2020-01-07 18:58 | Electrocardiogram Report ---
Test Reason : Blood Pressure : / mmHG Vent. Rate : 096 BPM Atrial Rate : 094 BPM P-R Int : 000 ms QRS Dur : 084 ms QT Int : 346 ms P-R-T Axes : 000 049 057 degrees QTc Int : 437 ms Poor data quality, interpretation may be adversely affected Sinus rhythm with sinus arrhythmia Confirmed by Valentin Gibbs ([id number]) on 01/07/2020 6:58:08 PM Referred By: REFERRED SELF Confirmed By:Seven Gibbs
--- NOTE | 2020-01-07 20:45 | Hospitalist Progress Note ---
Date of Service January 07, 2020 Assessment & Plan (1) Encephalopathy: Difficult to assess the patient secondary to limited verbal ability and somnolence with little cooperation with exam today. She may have a UTI present and has improved and been afebrile on antibiotics. Urine culture is pending. CT a/p also revealed some possible colitis, however, pt also has chronic constipation. Chronic rodriguez in place with h/o urinary retention. Hyponatremia is improving. She presented with a reports of weight gain and received one dose of Lasix followed by a 500cc bolus of IVF. No change in breathing status with h/o ILD. Examines as euvolemic. Seizure d/o stable and recently seen in outpat ient clinic two weeks ago. Cont IV Zosyn pending urine culture/clinical improvement. (2) Complicated UTI (urinary tract infection): Zosyn as above (3) Colitis: Cont Zosyn empirically. Will monitor for clinical improvement and monitor stool output. Currently eating well and doesn't appear to be in significant pain. She has had no further episodes of vomiting. Cont to monitor clinically. Cont Miralax for chronic constipation issues. If she declines clinically, will consider evaluation by GI or surgery. (4) Cerebral palsy: assist with meals and turn q2. Uncertain baseline movement capabilities. Will discuss wtih family. (5) Interstitial lung disease: progressed, however, currently stable. Not requiring oxygen supplementation. No increases work of breathing or apparent respiratory symptoms present. (6) Chronic indwelling Rodriguez catheter: (7) Intellectual disability: (8) Seizure disorder: carbamazepine level slightly above reference range, however, not by much. Doubt toxicity especially in light of recent review of meds with outpatient Neurologist. However, cont holding until repeat am level can be checked. No reports of recent seizure activity. (9) Hypothyroidism: Cont Synthroid per home regimen. (10) DVT prophylaxis: Lovenox Full Code Dispo-pending return to senior living once clinically improved and back to baseline. May need PT/OT assessments prior to discharge. Laurie Gonzalez DO [facility] Hospitalist Admission and Anticipated Discharge Date Admission Date: January 07, 2020 Subjective 74 yo F with CP who lives in a senior living. She is mostly nonverbal. She is currently sleeping and is resisting arousal pushing my hand away. Cannot obtain ROS. Afebrile throughout most of the day on broad spectrum abx. Sleeping most of the ay but did wake up and eat dinner with the nurse. Review of Systems Review of Systems: Unobtainable due to mental health condition Physical Exam Physical Exam: CONSTITUTIONAL: WNWD, congenital abnormalities to head and hands/arms, vitals as above, generally well-appearing EYES: refused to open her eyes ENT: refused to open her mouth. RESPIRATORY: clear to auscultation bilaterally, no crackles, rales or wheezes, normal respiratory effort CARDIOVASCULAR: regular rate and rhythm, S1 and 2 heard without murmurs, gallops or rubs, no JVD, no peripheral edema GASTROINTESTINAL: soft, nontender, no guarding. Limited exam as patient is resisting examination to some degree. MUSCULOSKELETAL: strength 5/5 throughout, head is atraumatic. SKIN: warm and dry NEUROLOGIC: cannot assess as patient is somnolent and refusing assessment at this time. Results & Data Results & Data ([facility]) Vital Signs (Past 12 Hours) Vital Signs Temp Pulse Resp BP Pulse Ox 01/07/20 20:07 36.7 C 79 20 107/64 95 01/07/20 15:18 36.7 C 82 16 136/71 96 01/07/20 11:24 36.8 C 56 L 18 112/68 96 Laboratory Results Short CBC 01/06/20 01/07/20 Range/Units 23:58 06:14 WBC 5.98 7.90 (4.8-10.8) K/uL Hgb 13.1 11.8 L (12.0-16.0) g/dL Hct 39.8 36.3 L (37-47) % Plt Count 307 284 (130-400) K/uL BMP 01/06/20 01/07/20 01/07/20 23:58 06:14 11:50 Sodium 127 L 130 L 132 L Potassium 3.9 3.6 Chloride 89 L 93 L Carbon Dioxide 32 31 BUN 14 15 Creatinine 0.95 0.97 Glucose 95 97 Calcium 10.3 H 9.5 Cardiac Enzymes 01/06/20 Range/Units 23:58 Troponin I < 0.015 (0-0.045) ng/ml Liver Function 01/06/20 Range/Units 23:58 Total Bilirubin 0.4 (0.2-1) mg/dl AST 17 (15-37) U/L ALT 27 (12-78) U/L Alkaline Phosphatase 153 H (45-117) U/L Albumin 3.9 (3.4-5.0) gm/dl Urine 01/07/20 Range/Units 03:36 Urine Color Yellow Urine Appearance Cloudy A (Clear) Urine pH 8.5 H (4.5-7.5) Ur Specific [place] 1.017 (1.000-1.030) Urine Protein Trace H (Negative) Urine Glucose (UA) Negative (Negative) Medications Administered Current Inpatient Medications Acetaminophen (Tylenol) 650 mg PO Q4H PRN PRN Reason: pain/fever Stop: 02/06/20 04:13 Aspirin (Ecotrin Ectab) 81 mg PO QAM [facility] Stop: 02/06/20 08:59 Last Admin: 01/07/20 13:24 Dose: Not Given Documented by: Enoxaparin Sodium ([facility]ovenox) [facility] Stop: 02/07/20 08:59 Fluticasone Propionate (Flonase) 2 sprays NA DAILY [facility] Stop: 02/06/20 08:59 Last Admin: 01/07/20 13:24 Dose: Not Given Documented by: Promethazine HCl 12.5 mg/ (Sodium Chloride) 50.5 mls @ 202 mls/hr IV Q6H PRN PRN Reason: Nausea And Vomiting Stop: 02/06/20 04:13 Piperacillin Sod/Tazobactam (Sod 3.375 gm/ Dextrose) 115 mls @ 28.75 mls/hr IV Q8H [facility]; Protocol Stop: 01/17/20 11:59 Last Infusion: 01/07/20 17:34 Dose: Infused Documented by: Lamotrigine (Lamictal) 300 mg PO BID [facility] Stop: 02/06/20 08:59 Last Admin: 01/07/20 13:24 Dose: Not Given Documented by: Lamotrigine (Lamictal) 50 mg PO BID [facility] Stop: 02/06/20 08:59 Last Admin: 01/07/20 13:24 Dose: Not Given Documented by: Levetiracetam (Keppra) 750 mg PO BID [facility] Stop: 02/06/20 08:59 Last Admin: 01/07/20 13:24 Dose: Not Given Documented by: Levothyroxine S[facility] (Synthroid) [facility] Stop: 02/06/20 06:29 Last Admin: 01/07/20 13:24 Dose: Not Given Documented by: Miscellaneous (Order Awaiting Action) 1 ea N/A QS [facility] Stop: 02/06/20 07:59 Last Admin: 01/07/20 16:00 Dose: Not Given Documented by: Miscellaneous Information (Consult) 1 ea N/A UD PRN PRN Reason: Consult Stop: 02/06/20 05:33 Multivitamins (Multivitamin Tab) 1 tab PO QAM [facility] Stop: 02/06/20 08:59 Last Admin: 01/07/20 13:24 Dose: Not Given Documented by: Polyethylene Glycol (Miralax Powder Packet) 17 gm PO BID [facility] Stop: 02/06/20 08:59 Last Admin: 01/07/20 13:24 Dose: Not Given Documented by: (1) Cerebral palsy Cerebral palsy type: spastic hemiplegic Qualified Code(s): 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
[2020-01-07 22:48] LABS: Appearance Urine Turbid (Clear); Bacteria Urine Automated 1+ (Negative); Bilirubin Urine Negative (Negative); Blood Urine 3+ (Negative); Color Urine Yellow; Epithelial Cell Urine Auto >30 /lpf (0-5); Glucose Urine UA Negative (Negative); Ketones Urine Negative (Negative); Leukocyte Esterase Urine 3+ (Negative); Nitrite Urine Positive (Negative); Protein Urine 1+ (Negative); Specific Gravity Urine 1.016 (1.000-1.030); Urobilinogen Urine Negative (Negative); WBC Urine Automated >30 /hpf (0-5)
[2020-01-07 23:01] LABS: Cast Urine Automated 0 /lpf (0-5)
--- NOTE | 2020-01-07 23:24 | Emergency Department Note ---
History of Present Illness General Chief complaint: Vomiting Stated complaint: VOMITING Time Seen by Provider: 01/06/20 23:25 Source: patient, family ( of brother), EMS, RN notes reviewed, old records reviewed and other (caregiver) Mode of arrival: EMS Limitations: physical limitation History of Present Illness Provider complaint: Agitation Onset (ago): hour(s) 6 Maximum Pain Intensity: 0 Associated symptoms: + denies other symptoms This is a 74-year-old female with a history of cerebral palsy who comes into the emergency department over concerns of agitation. Patient's caregiver reports that the patient is increasingly agitated over the past 6 hours more so than normal. She was recently diagnosed with congestive heart failure and was placed on Lasix. Caregiver reports no fevers and that the patient does not appear to be complaining about anything. Patient herself is nonverbal. Home Medications Home Medications Medication Instructions Recorded Confirmed Type multivitamin [Multiple Vitamins] 1 tab PO QAM #0 02/27/11 01/07/20 History carbamazepine [Carbatrol] 300 mg PO BID #0 06/29/12 01/07/20 History Aloe [place] Protectant Ointment 1 applic TOPICAL BID #0 11/11/14 01/07/20 History Prolia 60 mg SUBCUT UD #0 07/17/17 01/07/20 History aspirin 81 mg PO QAM #0 07/17/17 01/07/20 History levothyroxine 100 mcg PO QAM #0 07/17/17 01/07/20 History methenamine hippurate 1 g PO BID #0 07/17/17 01/07/20 History Linzess 290 mcg PO QAM 06/11/18 01/07/20 History lamotrigine [Lamictal] 300 mg PO BID 06/11/18 01/07/20 History polyethylene glycol 3350 [Miralax] 17 g PO BID 06/11/18 01/07/20 History fluticasone propionate 2 spray INTRANASAL DAILY 10/11/18 01/07/20 History lamotrigine 50 mg PO BID 10/11/18 01/07/20 History levetiracetam 750 mg PO BID 10/11/18 01/07/20 History cholecalciferol (vitamin D3) 50 2,000 units PO QAM 08/20/19 01/07/20 History mcg (2,000 unit) capsule metronidazole 1 applic TOPICAL BID 11/20/19 01/07/20 History furosemide 20 mg tablet 20 mg PO BID tab 12/22/19 01/07/20 History acetaminophen [Tylenol] 650 mg PO Q4H PRN MDD max 3 gms/24h 01/07/20 01/07/20 History dextromethorphan-guaifenesin 10 ml PO Q4H PRN 01/07/20 01/07/20 History [Robitussin Cough-Chest Mariano DM] guaifenesin [Mucinex] 600 mg PO Q12H PRN 01/07/20 01/07/20 History hydrocortisone [Proctozone-HC] 1 applic NE BID PRN 01/07/20 01/07/20 History skpzbrda-bykzwalpvDf-ctyzlkjsP 1 applic TOPICAL DIRECTED 01/07/20 01/07/20 History [Triple Antibiotic] Allergies Allergy/AdvReac Type Severity Reaction Status Date / Time No Known Allergies Allergy Unknown Verified 01/07/20 00:15 Past Med/Surg History Social History Preferred Language: Wolof Communication Ability: Impaired Cardiovascular Lab Director Required: No Beliefs That Will Affect Care: None marital status: Single Current Living Situation: Personal Care Facility Current Living Situation Comment: [facility] Feels Safe at Home: Yes Smoking Status: Never smoker Hx Alcohol Use: No Hx Substance Use: No Review of Systems Unobtainable due to cognitive status Physical Exam Vital Signs Vital Signs - 24 hr 01/06/20 23:37 01/07/20 00:48 01/07/20 01:00 Temperature 37.1 C Temperature Source Axillary Pulse Rate 94 H Pulse Rate [Right Finger] 101 H Respiratory Rate 16 16 Respiratory Depth Normal Blood Pressure 177/118 H Blood Pressure [Right Arm] 188/111 H Blood Pressure Mean 137 Blood Pressure Mean [Right Arm] 136 Blood Pressure Position Lying Blood Pressure Position [Right Arm] Lying Pulse Oximetry 95 95 98 Oxygen Delivery Method Room Air Room Air Room Air Sepsis Recent Fever Within 48 Hours No Sepsis New/Unexplained Change in Mental Status No Sepsis Action Taken by Nursing No Action Required VITAL SIGNS - Vital signs and nursing notes were reviewed. GENERAL - 74-year-old female appearing stated age who writhing around the bed. Moaning loudly, will not answer questions SKIN - Without rashes. HEAD - NC/AT. EYES - PERRL with EOMI bilaterally. Sclera anicteric. Palpebral conjunctiva pink and moist with no injection noted. EARS - No deformities of external structures noted on gross examination bilaterally. No pain elicited with palpation of the tragus bilaterally. External auditory canals without discharge or otorrhea. Tympanic membranes pearly pérez without retraction or bulging. No fluid or purulent material visualized behind the TM. Handle of malleus, umbo, cone of light, pars tensa/flaccid all easily visualized. NOSE - Midline and without cyanosis. No epistaxis or purulent drainage noted. Septum midline without deviation or septal hematoma noted. MOUTH/OROPHARYNX - Without perioral cyanosis. Buccal mucosa pink and moist and without leukoplakia. Tongue midline with equal elevation of palate bilaterally. No tonsillar hypertrophy, erythema, or exudates noted. dentition noted. NECK - Neck with FROM. Supple to palpation. lymphadenopathy noted. No nuchal rigidity. LUNGS - Chest wall symmetric without accessory muscle use, intercostals retractions, or central cyanosis. Normal vesicular breath sounds CTA B/L. No wheezes, rales, or rhonchi appreciated. CARDIAC - RRR with S1/S2. No murmur, rubs, or gallops appreciated. ABDOMEN - Abdominal contour without pulsations or visible masses. BS normoactive all four quadrants. No tenderness, palpable masses, hepatosplenomegaly, or ascites noted. EXTREMITIES - No clubbing or peripheral cyanosis. No pretibial edema present. +3/5 radial, posterior tibial, and dorsalis pedis pulses palpated throughout. +5/5 strength noted in UE/LE bilaterally. NEUROLOGIC - Cranial nerves II through XII grossly intact. Sensory intact to light touch throughout. Patellar reflexes +2/4. PSYCH - Pt does not answer questions Course Administered Medications Aspirin (Ecotrin Ectab) 81 mg PO QAM [facility] Stop: 02/06/20 08:59 Last Admin: 01/07/20 13:24 Dose: Not Given Documented by: [id number] Fluticasone Propionate (Flonase) 2 sprays NA DAILY [facility] Stop: 02/06/20 08:59 Last Admin: 01/07/20 13:24 Dose: Not Given Documented by: [id number] Piperacillin Sod/Tazobactam (Sod 3.375 gm/ Dextrose) 115 mls @ 28.75 mls/hr IV Q8H [facility]; Protocol Stop: 01/17/20 11:59 Last Admin: 01/07/20 21:43 Dose: 28.8 mls/hr Documented by: [id number] Infusion: 01/07/20 17:34 Dose: 0 mls/hr Documented by: [id number] Admin: 01/07/20 13:28 Dose: 28.8 mls/hr Documented by: [id number] Lamotrigine (Lamictal) 300 mg PO BID [facility] Stop: 02/06/20 08:59 Last Admin: 01/07/20 21:48 Dose: 300 mg Documented by: [id number] Admin: 01/07/20 13:24 Dose: Not Given Documented by: [id number] Lamotrigine (Lamictal) 50 mg PO BID [facility] Stop: 02/06/20 08:59 Last Admin: 01/07/20 21:49 Dose: 50 mg Documented by: [id number] Admin: 01/07/20 13:24 Dose: Not Given Documented by: [id number] Levetiracetam (Keppra) 750 mg PO BID [facility] Stop: 02/06/20 08:59 Last Admin: 01/07/20 21:49 Dose: 750 mg Documented by: [id number] Admin: 01/07/20 13:24 Dose: Not Given Documented by: [id number] Levothyroxine Sodium (Synthroid) 100 mcg PO DAILYBB [facility] Stop: 02/06/20 06:29 Last Admin: 01/07/20 13:24 Dose: Not Given Documented by: [id number] Miscellaneous (Order Awaiting Action) 1 ea N/A QS [facility] Stop: 02/06/20 07:59 Last Admin: 01/08/20 00:03 Dose: Not Given Documented by: [id number] Admin: 01/07/20 16:00 Dose: Not Given Documented by: [id number] Admin: 01/07/20 09:19 Dose: Not Given Documented by: [id number] Multivitamins (Multivitamin Tab) 1 tab PO QAM [facility] Stop: 02/06/20 08:59 Last Admin: 01/07/20 13:24 Dose: Not Given Documented by: [id number] Polyethylene Glycol (Miralax Powder Packet) 17 gm PO BID [facility] Stop: 02/06/20 08:59 Last Admin: 01/07/20 21:42 Dose: Not Given Documented by: [id number] Admin: 01/07/20 13:24 Dose: Not Given Documented by: [id number] Discontinued Medications Acetaminophen (Ofirmev) 1,000 mg IV ONE ONE Stop: 01/07/20 05:37 Last Admin: 01/07/20 06:19 Dose: 1,000 mg Documented by: [id number] Enoxaparin Sodium (Lovenox) 30 mg SQ QAM [facility] Stop: 02/06/20 08:59 Last Admin: 01/07/20 13:25 Dose: 30 mg Documented by: [id number] Furosemide (Lasix) 40 mg IV NOW STA Stop: 01/07/20 01:50 Last Admin: 01/07/20 01:57 Dose: 40 mg Documented by: [id number] Haloperidol (Haldol) 5 mg PO NOW STA Stop: 01/06/20 23:32 Last Admin: 01/06/20 23:47 Dose: Not Given Documented by: [id number] Haloperidol Lactate (Haldol) 5 mg IM NOW STA Stop: 01/06/20 23:43 Last Admin: 01/06/20 23:47 Dose: 5 mg Documented by: [id number] Sodium Chloride (Nss) 500 mls @ 500 mls/hr IV .Q1H ONE Stop: 01/07/20 03:48 Last Infusion: 01/07/20 05:27 Dose: 0 mls/hr Documented by: [id number] Admin: 01/07/20 03:01 Dose: 500 mls/hr Documented by: [id number] Piperacillin Sod/Tazobactam (Sod 4.5 gm/ Dextrose) 120 mls @ 200 mls/hr IV NOW ONE; Protocol Stop: 01/07/20 06:20 Last Infusion: 01/07/20 09:19 Dose: 0 mls/hr Documented by: [id number] Admin: 01/07/20 06:35 Dose: 200 mls/hr Documented by: [id number] Ioversol (Optiray 320 100ml) 100 ml IV ONCE PRN PRN Reason: Interaction Checking Stop: 01/11/20 01:16 Last Admin: 01/07/20 01:17 Dose: 92 ml Documented by: [id number] Ondansetron HCl (Zofran) 4 mg IV NOW STA Stop: 01/06/20 23:50 Last Admin: 01/07/20 00:23 Dose: 4 mg Documented by: [id number] Critical Care Time I have personally spent greater than 30 minutes of critical care time in the direct management of this patient. This includes bedside care, interpretation of diagnostic studies, and testing, discussion with consultants, patient, and family members, and other required patient management activities. This 30 minutes is in excess of all separately billable procedures. Medical Decision Making Differential Diagnosis Infection, dehydration, metabolic abnormality, hypo/hyperglycemia, electrolyte disturbance, anemia, hypoxia, cardiac sources, intracerebral event, toxicologic, neurologic, as well as other pathologies. Medical Records Attestation: I reviewed the patient's medical records. Home Medications Current Medication List: was personally reviewed by me Laboratory Data Attestation: I reviewed the patient's lab results. Result diagrams: 01/07/20 06:14 01/07/20 11:50 Lab Results 01/06/20 01/06/20 01/06/20 Range/Units 23:58 23:58 23:58 WBC 5.98 (4.8-10.8) K/uL RBC 4.39 (4.2-5.4) M/uL Hgb 13.1 (12.0-16.0) g/dL Hct 39.8 (37-47) % MCV 90.7 (80-100) fL MCH 29.8 (25-34) pg MCHC 32.9 (32-36) g/dL RDW Std Deviation 42.1 (36.4-46.3) fL RDW Coeff of Db 12.7 (11.5-14.5) % Plt Count 307 (130-400) K/uL MPV 9.8 (7.4-10.4) fL Immature Gran % (Auto) 0.3 % Neut % (Auto) 58.9 % Lymph % (Auto) 28.1 % [place] % (Auto) 9.9 % Eos % (Auto) 2.5 % Baso % (Auto) 0.3 % Neut # (Auto) 3.52 (1.4-6.5) K/uL Lymph # (Auto) 1.68 (1.2-3.4) K/uL [place] # (Auto) 0.59 (0.11-0.59) K/uL Eos # (Auto) 0.15 (0-0.5) K/uL Baso # (Auto) 0.02 (0-0.2) K/uL Immature Gran # (Auto) 0.02 (0.00-0.02) K/uL PT 10.4 (9.0-12.0) Seconds INR 1.0 (0.9-1.1) APTT 25.4 (21.0-31.0) Seconds PTT Ratio 0.9 Sodium 127 L (136-145) mmol/L Potassium 3.9 (3.5-5.1) mmol/L Chloride 89 L (98-107) mmol/L Carbon Dioxide 32 (21-32) mmol/L Anion Gap 6.0 (3-11) BUN 14 (7-18) mg/dl Creatinine 0.95 (0.6-1.2) mg/dl Est Cr Clr Drug Dosing Not Reportable Est GFR ( Amer) 68.4 Est GFR (Non-Af Amer) 59.0 BUN/Creatinine Ratio 14.9 (10-20) Glucose 95 (70-99) mg/dl Osmolality (280-300) mOsm/kg Lactate (0.4-2.0) mmol/L Calcium 10.3 H (8.5-10.1) mg/dl Magnesium 2.0 (1.8-2.4) mg/dl Total Bilirubin 0.4 (0.2-1) mg/dl AST 17 (15-37) U/L ALT 27 (12-78) U/L Alkaline Phosphatase 153 H (45-117) U/L Troponin I < 0.015 (0-0.045) ng/ml NT-Pro-B Natriuret Pep 391 (0-900) pg/ml Total Protein 8.8 H (6.4-8.2) gm/dl Albumin 3.9 (3.4-5.0) gm/dl Globulin 4.9 H (2.5-4.0) gm/dl Albumin/Globulin Ratio 0.8 L (0.9-2) Procalcitonin (0-0.5) ng/ml TSH 1.130 (0.300-4.500) uIu/ml Carbamazepine (4-12) mcg/ml 01/06/20 01/06/20 01/06/20 Range/Units 23:58 23:58 23:58 WBC (4.8-10.8) K/uL RBC (4.2-5.4) M/uL Hgb (12.0-16.0) g/dL Hct (37-47) % MCV (80-100) fL MCH (25-34) pg MCHC (32-36) g/dL RDW Std Deviation (36.4-46.3) fL RDW Coeff of Db (11.5-14.5) % Plt Count (130-400) K/uL MPV (7.4-10.4) fL Immature Gran % (Auto) % Neut % (Auto) % Lymph % (Auto) % [place] % (Auto) % Eos % (Auto) % Baso % (Auto) % Neut # (Auto) (1.4-6.5) K/uL Lymph # (Auto) (1.2-3.4) K/uL [place] # (Auto) (0.11-0.59) K/uL Eos # (Auto) (0-0.5) K/uL Baso # (Auto) (0-0.2) K/uL Immature Gran # (Auto) (0.00-0.02) K/uL PT (9.0-12.0) Seconds INR (0.9-1.1) APTT (21.0-31.0) Seconds PTT Ratio Sodium (136-145) mmol/L Potassium (3.5-5.1) mmol/L Chloride (98-107) mmol/L Carbon Dioxide (21-32) mmol/L Anion Gap (3-11) BUN (7-18) mg/dl Creatinine (0.6-1.2) mg/dl Est Cr Clr Drug Dosing Est GFR ( Amer) Est GFR (Non-Af Amer) BUN/Creatinine Ratio (10-20) Glucose (70-99) mg/dl Osmolality (280-300) mOsm/kg Lactate 1.4 (0.4-2.0) mmol/L Calcium (8.5-10.1) mg/dl Magnesium (1.8-2.4) mg/dl Total Bilirubin (0.2-1) mg/dl AST (15-37) U/L ALT (12-78) U/L Alkaline Phosphatase (45-117) U/L Troponin I (0-0.045) ng/ml NT-Pro-B Natriuret Pep (0-900) pg/ml Total Protein (6.4-8.2) gm/dl Albumin (3.4-5.0) gm/dl Globulin (2.5-4.0) gm/dl Albumin/Globulin Ratio (0.9-2) Procalcitonin < 0.05 (0-0.5) ng/ml TSH (0.300-4.500) uIu/ml Carbamazepine 12.3 H* (4-12) mcg/ml 01/06/20 Range/Units 23:58 WBC (4.8-10.8) K/uL RBC (4.2-5.4) M/uL Hgb (12.0-16.0) g/dL Hct (37-47) % MCV (80-100) fL MCH (25-34) pg MCHC (32-36) g/dL RDW Std Deviation (36.4-46.3) fL RDW Coeff of Db (11.5-14.5) % Plt Count (130-400) K/uL MPV (7.4-10.4) fL Immature Gran % (Auto) % Neut % (Auto) % Lymph % (Auto) % [place] % (Auto) % Eos % (Auto) % Baso % (Auto) % Neut # (Auto) (1.4-6.5) K/uL Lymph # (Auto) (1.2-3.4) K/uL [place] # (Auto) (0.11-0.59) K/uL Eos # (Auto) (0-0.5) K/uL Baso # (Auto) (0-0.2) K/uL Immature Gran # (Auto) (0.00-0.02) K/uL PT (9.0-12.0) Seconds INR (0.9-1.1) APTT (21.0-31.0) Seconds PTT Ratio Sodium (136-145) mmol/L Potassium (3.5-5.1) mmol/L Chloride (98-107) mmol/L Carbon Dioxide (21-32) mmol/L Anion Gap (3-11) BUN (7-18) mg/dl Creatinine (0.6-1.2) mg/dl Est Cr Clr Drug Dosing Est GFR ( Amer) Est GFR (Non-Af Amer) BUN/Creatinine Ratio (10-20) Glucose (70-99) mg/dl Osmolality 275 L (280-300) mOsm/kg Lactate (0.4-2.0) mmol/L Calcium (8.5-10.1) mg/dl Magnesium (1.8-2.4) mg/dl Total Bilirubin (0.2-1) mg/dl AST (15-37) U/L ALT (12-78) U/L Alkaline Phosphatase (45-117) U/L Troponin I (0-0.045) ng/ml NT-Pro-B Natriuret Pep (0-900) pg/ml Total Protein (6.4-8.2) gm/dl Albumin (3.4-5.0) gm/dl Globulin (2.5-4.0) gm/dl Albumin/Globulin Ratio (0.9-2) Procalcitonin (0-0.5) ng/ml TSH (0.300-4.500) uIu/ml Carbamazepine (4-12) mcg/ml Imaging Data Radiologist's Impression: [place], [place] [phone] XRay Report Patient: ROEL LEONdmit Date: 01/07/20 MR#: [id number]: 1407 [facility] Acct ID:[id number]: Date: 1945[facility] Zip: [place] [address] Age: 74Location: 2W Sex: F Room/Bed: [facility] Att Phy: Laurie Gonzalez, DODiagnosis: HYPONATREMIA Jennifer Phy: Lora Carvalho DOService Date: 01/06/20 Fam Phy:Interpreting Phy: Jacobo Falk MD Admit Phy: Jaya Franz MD Ordering Phy: Javad Orellana MD cc: ~ XR chest 1V portable CLINICAL HISTORY: Sepsis. COMPARISON STUDY: Chest radiograph December 28, 2019. FINDINGS: Elevation of the right hemidiaphragm is unchanged. Interstitial thickening is unchanged and suggests underlying interstitial lung disease. Cardiomediastinal silhouette is stable. Patient is rotated. No superimposed consolidation is noted. There is no pneumothorax or pleural effusion. IMPRESSION: 1. No acute findings. Interstitial thickening consistent with interstitial lung disease. No evidence for superimposed consolidation. 2. Stable elevation of the right hemidiaphragm. ACT 112: Negative or not required by law. Electronically signed by: Jacobo Falk M.D. 01/07/2020 6:47 AM Dictated: 01/07/2045 Transcribed: 01/07/2045 [facility] [place] [phone] CT Scan Report Patient: Thomas LEON Date: 01/07/20 MR#: [id number]: 1407 [facility] Acct ID:[id number]: Date: 1945[facility] Zip: [place] [address] Age: 74Location: 2W Sex: F Room/Bed: [facility] Att Phy: Laurie Gonzalez, DODiagnosis: HYPONATREMIA Jennifer Phy: Lora Carvalho DOService Date: 01/06/20 Fam Phy:Interpreting Phy: Juan Carlos Garcia MD Admit Phy: Jaya Franz MD Ordering Phy: Javad Orellana MD cc: ~ HEAD CT NONCONTRAST CT DOSE: 1642.00 mGycm HISTORY: Altered mental status. TECHNIQUE: Multiaxial CT images of the head were performed without the use of intravenous contrast. Automated exposure control was utilized for this study. A dose lowering technique was utilized adhering to the principles of ALARA. Comparison: Head CT 01/07/2019. Findings: Trace fluid level within the left sphenoid sinus, unchanged. There is no mass, hematoma, midline shift, or acute infarct. There is again noted absence of the corpus callosum and septum pellucidum with cerebellar atrophy. These are consistent with chronic congenital anomalies. Impression: No significant change compared to the prior study. No acute intracranial abnormality. Stable congenital anomalies as described above. ACT 112: Negative or not required by law. Electronically signed by: Juan Carlos Garcia M.D. 01/07/2020 7:08 AM Dictated: 01/07/20705 Transcribed: 01/07/20705 [facility] [place] [phone] CT Scan Report Patient: Thomas LEON Date: 01/07/20 MR#: [id number]: [address] [facility] Acct ID:[id number]: Date: 1945[facility] Zip: [place] [address] Age: 74Location: 2W Sex: F Room/Bed: [facility] Att Phy: Laurie Gonzalez, DODiagnosis: HYPONATREMIA Jennifer Phy: Lora Carvalho DOService Date: 01/07/20 Fam Phy:Interpreting Phy: Jacobo Falk MD Admit Phy: Jaya Franz MD Ordering Phy: Javad Orellana MD cc: ~ CT OF THE ABDOMEN AND PELVIS WITH CONTRAST CLINICAL HISTORY: Emesis. Abdominal pain. COMPARISON STUDY: CT of the abdomen and pelvis January 07, 2019. TECHNIQUE: Following IV administration of 92 mL of Optiray-320, axial images of the abdomen and pelvis were obtained from the lung bases to the proximal femurs. Images were reviewed in the axial, sagittal, and coronal planes. IV contrast was administered without complication. Automated exposure control was utilized for the study. A dose lowering technique was utilized adhering to the principles of ALARA. CT DOSE: 897.41 mGycm FINDINGS: Fibrotic changes are noted within the lung bases. No pneumatosis, free air or portal venous gas is present. This exam is mildly compromised by artifact. The liver, spleen, adrenal glands, kidneys and pancreas are unremarkable. Is no biliary or pancreatic ductal dilatation. There is no peripancreatic or pericholecystic infiltration. There is mild rectosigmoid wall thickening. Moderate distention of the sigmoid colon is noted. There is no evidence for a volvulus. The appendix is normal. No additional sites of bowel wall thickening are noted. Major vasculature is patent. Old L2 compression fracture is noted. Bladder is mildly distended. [place] balloon within the bladder is noted. There are numerous bladder calculi. IMPRESSION: 1. Mild rectosigmoid wall thickening which suggests a nonspecific proctocolitis. 2. Moderate distention of the sigmoid colon without evidence for a volvulus. No evidence for a bowel obstruction. 3. Multiple bladder calculi. ACT 112: Negative or not required by law. Electronically signed by: Jacobo Falk M.D. 01/07/2020 6:45 AM Dictated: 01/07/20638 Transcribed: 01/07/20638 ECG Data Attestation: I personally reviewed and interpreted this ECG as follows: Indication: + altered mental status Rate (beats per minute): 96 Rhythm: + sinus with SA ECG Intervals/blocks: + Normal QT-c (437) ECG [place]: + Normal ECG ST segments: no ST depression and no ST elevation Comparison ECG Date: from (11/20/2019) Change: no significant change MDM Narrative This 74-year-old female who presents emergency department complaining of altered mental status. I will note that the patient's sodium here is 127. This is significantly lower than it has been previously. I did discuss the patient's presentation with her [id number] who asked that the patient be sedated so that we could obtain laboratory work as well as a CAT scan of the head and chest x-ray. The patient was given 5 mg of Haldol. She was placed on the child monitor. Because of the patient's sodium I did discuss the case with the hospitalist service who did agree to admit the patient. Patient and caregivers were in agreement with the treatment plan. Patient was seen and evaluated as above in room C7. Review was performed of nursing notes and vital signs. I did review pertinent previous visits and patient history. After obtaining a thorough history and physical examination the above work up was performed. While in the department, I personally reevaluated the patient several times and each time the patient was found to be resting comfortably. The patient was educated upon management, educated upon todays findings/results, educated upon importance of follow up from today's visit, educated upon symptoms in which to return, had questions answered prior to discharge, verbalized understanding, and was discharged home in good condition. An order was placed for continuous cardiac monitoring. The monitor shows a rate of 75 with Normal Sinus rhythm. The patient was evaluated during the global COVID-19 pandemic, and that diagnosis was suspected/considered upon their initial presentation. Their evaluation, treatment and testing was consistent with current guidelines for patients who present with complaints or symptoms that may be related to COVID- 19. Impression & Plan Altered mental status, Hyponatremia Discharge Plan Visit Data *Final* Discharge Date/Time: 01/07/20 03:13 Chief Complaint: Vomiting Stated Complaint: VOMITING ED Provider: Javad Orellana Discharge Problem: Altered mental status, Hyponatremia Patient Disposition: Admitted As Inpatient Discharge Instructions Interventions: ED Discharge Assessment Last Done: 01/07/20 03:13 Discharge Problem: Altered mental status Qualifiers: Altered mental status type: unspecified Qualified Code(s): R41.82 - Altered mental status, unspecified
[2020-01-08] MEDS: PIPERACILLIN/TAZOBACTAM 3.375 GM in DEXTROSE 5% 100 ML IV SCH ×3 (03:52→21:01)
[2020-01-08] MEDS: LEVOTHYROXINE SODIUM 100 MCG TABLET PO SCH (06:33)
--- NOTE | 2020-01-08 08:10 | Hospitalist Progress Note ---
Date of Service January 08, 2020 Assessment & Plan (1) Catheter-associated urinary tract infection: Zosyn as above, exchange rodriguez while here if not already done. (2) Metabolic encephalopathy: Appears to be resolving with antibiotic therapy. Afebrile overnight and clinically improving. Growing pseudomonas in her urine. Cont Zosyn pending culture sensitivities. Although some evidence of possible colitis was present on imaging, the patient has issues with constipation chronically, has no abdominal tenderness and had a large normal BM today. Will keep this in consideration, however, it is likely the complicated UTI with her indwelling Rodriguez catheter was the source of her symptoms. (3) Colitis: Cont Zosyn empirically. Plan as above. (4) Functional quadriplegia: Turn q2, lynsey lift to transfer. (5) Cerebral palsy: assist with meals and turn q2. Baseline as noted above. Appears to be feeling better today. (6) Intellectual disability: (7) Interstitial lung disease: progressed, however, currently stable. Not requiring oxygen supplementation. No increases work of breathing or apparent respiratory symptoms present. (8) Seizure disorder: Carbamazepine level was within the normal range. We do not carry her ER form here, so will reach out to Neurology for an appropriate alternative. (9) Hypothyroidism: Cont Synthroid per home regimen. (10) DVT prophylaxis: Lovenox Full Code Dispo-pending return to detention once clinically improved and back to baseline. Laurie Gonzalez DO [facility] Hospitalist Admission and Anticipated Discharge Date Admission Date: January 07, 2020 Subjective Minerva looks improved today. She was awake and smiling, reporting no pain and that she was doing fine. Still sleepy, however, so ROS was limited. She is tolerating food and requires help with feeding which is typical for her. She appears more back to her baseline. Afebrile overnight. Large brown BM this morning. Baseline per records from [facility]: uses a toilet chair at home, she is a total lift with lynsey, occasionally talks about seeing things, may refuse medications, likes to sleep during the day and be up more at night. 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 normal respiratory effort CARDIOVASCULAR: regular rate and rhythm, S1 and 2 heard without murmurs, gallops or rubs, no JVD, no peripheral edema GASTROINTESTINAL: soft, nontender, no guarding. Limited exam as patient is resisting examination to some degree. MUSCULOSKELETAL: cannot over her legs on her own, arms/hands are contracted and patient has some voluntary control but this is limited. SKIN: warm and dry NEUROLOGIC: alert and cooperative. Unclear if she is oriented to what is going on. Results & Data Results & Data ([facility]) Vital Signs (Past 12 Hours) Vital Signs Temp Pulse Pulse Resp BP Pulse Ox 01/08/20 07:56 37.1 C 57 L 18 112/67 98 01/08/20 03:18 74 01/08/20 03:01 37.1 C 86 18 93/53 L 99 01/07/20 23:23 36.9 C 75 18 108/72 100 01/07/20 20:41 69 Laboratory Results Short CBC 01/08/20 Range/Units 07:56 WBC 6.44 (4.8-10.8) K/uL Hgb 12.7 (12.0-16.0) g/dL Hct 38.7 (37-47) % Plt Count 300 (130-400) K/uL BMP 01/08/20 07:56 Sodium 136 Potassium 3.6 Chloride 99 Carbon Dioxide 32 BUN 13 Creatinine 0.81 Glucose 89 Calcium 10.2 H Urine 01/07/20 Range/Units 22:15 Urine Color Yellow Urine Appearance Turbid A (Clear) Urine pH 6.0 (4.5-7.5) Ur Specific [place] 1.016 (1.000-1.030) Urine Protein 1+ H (Negative) Urine Glucose (UA) Negative (Negative) Medications Administered Current Inpatient Medications Acetaminophen (Tylenol) 650 mg PO Q4H PRN PRN Reason: pain/fever Stop: 02/06/20 04:13 Aspirin (Ecotrin Ectab) 81 mg PO QAM [facility] Stop: 02/06/20 08:59 Last Admin: 01/08/20 08:29 Dose: 81 mg Documented by: Enoxaparin Sodium (Lovenox) 40 mg SQ QAM [facility] Stop: 02/07/20 08:59 Last Admin: 01/08/20 08:29 Dose: 40 mg Documented by: Fluticasone Propionate (Flonase) 2 sprays NA DAILY [facility] Stop: 02/06/20 08:59 Last Admin: 01/08/20 08:29 Dose: 2 sprays Documented by: Promethazine HCl 12.5 mg/ (Sodium Chloride) 50.5 mls @ 202 mls/hr IV Q6H PRN PRN Reason: Nausea And Vomiting Stop: 02/06/20 04:13 Piperacillin Sod/Tazobactam (Sod 3.375 gm/ Dextrose) 115 mls @ 28.75 mls/hr IV Q8H [facility]; Protocol Stop: 01/17/20 11:59 Last Infusion: 01/08/20 16:31 Dose: Infused Documented by: Lamotrigine (Lamictal) 300 mg PO BID [facility] Stop: 02/06/20 08:59 Last Admin: 01/08/20 08:30 Dose: 300 mg Documented by: Lamotrigine (Lamictal) 50 mg PO BID [facility] Stop: 02/06/20 08:59 Last Admin: 01/08/20 08:29 Dose: 50 mg Documented by: Levetiracetam (Keppra) 750 mg PO BID [facility] Stop: 02/06/20 08:59 Last Admin: 01/08/20 08:29 Dose: 750 mg Documented by: Levothyroxine Sodium (Synthroid) 100 mcg PO DAILYBB [facility] Stop: 02/06/20 06:29 Last Admin: 01/08/20 06:33 Dose: 100 mcg Documented by: Miscellaneous (Order Awaiting Action) 1 ea N/A QS [facility] Stop: 02/06/20 07:59 Last Admin: 01/08/20 15:24 Dose: Not Given Documented by: Miscellaneous Information (Consult) 1 ea N/A UD PRN PRN Reason: Consult Stop: 02/06/20 05:33 Multivitamins (Multivitamin Tab) 1 tab PO QAM [facility] Stop: 02/06/20 08:59 Last Admin: 01/08/20 08:30 Dose: 1 tab Documented by: Non-Formulary Medication (Carbamazepine [Carbatrol]) 300 mg PO BID [facility] Stop: 02/07/20 20:59 Polyethylene Glycol (Miralax Powder Packet) 17 gm PO BID [facility] Stop: 02/06/20 08:59 Last Admin: 01/08/20 08:15 Dose: Not Given Documented by: (1) Cerebral palsy Cerebral palsy type: spastic hemiplegic Qualified Code(s): 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
[2020-01-08] MEDS: POLYETHYLENE (MIRALAX) 17 GM PACK PO SCH ×2 (08:15→21:06)
[2020-01-08 08:23] LABS: Hematocrit (blood only) 38.7 % (37-47); Hemoglobin 12.7 g/dL (12.0-16.0); Mean Corpuscular Hemoglobin 30.2 pg (25-34); Mean Corpuscular Hgb Conc 32.8 g/dL (32-36); Mean Corpuscular Volume 91.9 fL (80-100); Nucleated RBC # (auto) 0.02 K/uL (0-0); Nucleated RBC % (auto) 0.3 %; Platelet Count 300 K/uL (130-400); RDW Standard Deviation 43.6 fL (36.4-46.3); Red Blood Count 4.21 M/uL (4.2-5.4); White Blood Count 6.44 K/uL (4.8-10.8)
[2020-01-08] MEDS: ASPIRIN 81 MG ECTAB PO SCH (08:29)
[2020-01-08] MEDS: levETIRAcetam 250 MG TAB PO SCH ×2 (08:29→21:04)
[2020-01-08] MEDS: lamoTRIgine 25 MG TAB PO SCH ×2 (08:29→21:05)
[2020-01-08] MEDS: ENOXAPARIN INJ 40 MG/0.4 ML SYR SQ SCH (08:29)
[2020-01-08] MEDS: FLUTICASONE PROPIONATE NA SPR 16 GM BTL SCH (08:29)
[2020-01-08] MEDS: lamoTRIgine 100 MG TAB PO SCH ×2 (08:30→21:06)
[2020-01-08] MEDS: MULTIVITAMIN TAB PO SCH (08:30)
[2020-01-08 08:51] LABS: BUN Creatinine Ratio 16.1 (10-20); Calcium 10.2 mg/dl (8.5-10.1); Creatinine Clr Calc Pharmacy 54.8 ml/min; Est GFR (African American) 82.9; Est GFR (Non-African American) 71.5; Potassium 3.6 mmol/L (3.5-5.1)
[2020-01-08] MEDS: CARBAMAZEPINE 100 MG TABCR PO SCH (21:02)
[2020-01-09] MEDS: PIPERACILLIN/TAZOBACTAM 3.375 GM in DEXTROSE 5% 100 ML IV SCH ×2 (03:22→12:20)
[2020-01-09] MEDS: LEVOTHYROXINE SODIUM 100 MCG TABLET PO SCH (05:31)
[2020-01-09] MEDS: lamoTRIgine 25 MG TAB PO SCH ×2 (08:02→20:01)
[2020-01-09] MEDS: ASPIRIN 81 MG ECTAB PO SCH (08:02)
[2020-01-09] MEDS: POLYETHYLENE (MIRALAX) 17 GM PACK PO SCH ×2 (08:02→20:01)
[2020-01-09] MEDS: levETIRAcetam 250 MG TAB PO SCH ×2 (08:02→20:01)
[2020-01-09] MEDS: MULTIVITAMIN TAB PO SCH (08:02)
[2020-01-09] MEDS: lamoTRIgine 100 MG TAB PO SCH ×2 (08:02→20:00)
[2020-01-09] MEDS: CARBAMAZEPINE 100 MG TABCR PO SCH ×2 (08:02→20:00)
[2020-01-09] MEDS: FLUTICASONE PROPIONATE NA SPR 16 GM BTL SCH (08:03)
[2020-01-09] MEDS: ENOXAPARIN INJ 40 MG/0.4 ML SYR SQ SCH (08:03)
--- NOTE | 2020-01-09 14:22 | Hospitalist Progress Note ---
Date of Service January 09, 2020 Assessment & Plan (1) Catheter-associated urinary tract infection: Exchanged rodriguez today, dc telemetry as stable and back to baseline. Change Zosyn to cipro based on andersen-sensitive Pseudomonas. (2) Metabolic encephalopathy: resolved back to baseline. (3) Colitis: not likely colitis, denies any abdominal pain. Normal BMs, and she has eaten heartily. (4) Functional quadriplegia: Turn q2, lynsey lift to transfer. (5) Cerebral palsy: assist with meals and turn q2. Baseline as noted above. Appears to be feeling better today. (6) Intellectual disability: (7) Interstitial lung disease: progressed, however, currently stable. Not requiring oxygen supplementation. No increases work of breathing or apparent respiratory symptoms present. (8) Seizure disorder: Carbamazepine level was within the normal range. Restarted overnight. (9) Hypothyroidism: Cont Synthroid per home regimen. (10) DVT prophylaxis: Lovenox Full Code-back to [facility] in the next 1-2 days. 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 normal respiratory effort CARDIOVASCULAR: regular rate and rhythm, S1 and 2 heard without murmurs, gallops or rubs, no JVD, no peripheral edema GASTROINTESTINAL: soft, nontender, no guarding. Limited exam as patient is resisting examination to some degree. MUSCULOSKELETAL: cannot over her legs on her own, arms/hands are contracted and patient has some voluntary control but this is limited. SKIN: warm and dry NEUROLOGIC: alert and cooperative. Unclear if she is oriented to what is going on. Results & Data Results & Data ([facility]) Vital Signs (Past 12 Hours) Vital Signs Temp Pulse Pulse Resp BP BP Pulse Ox 01/09/20 12:00 37.1 C 86 20 116/78 95 01/09/20 08:10 36.8 C 98 H 18 157/92 H 100 01/09/20 04:00 36.9 C 73 20 137/84 98 01/09/20 02:46 85 Medications Administered Current Inpatient Medications Acetaminophen (Tylenol) 650 mg PO Q4H PRN PRN Reason: pain/fever Stop: 02/06/20 04:13 Aspirin (Ecotrin Ectab) 81 mg PO QAM [facility] Stop: 02/06/20 08:59 Last Admin: 01/09/20 08:02 Dose: 81 mg Documented by: Carbamazepine (Tegretol Xr) 300 mg PO BID [facility] Stop: 02/07/20 20:59 Last Admin: 01/09/20 08:02 Dose: 300 mg Documented by: Enoxaparin Sodium (Lovenox) 40 mg SQ QAM [facility] Stop: 02/07/20 08:59 Last Admin: 01/09/20 08:03 Dose: 40 mg Documented by: Fluticasone Propionate (Flonase) 2 sprays NA DAILY [facility] Stop: 02/06/20 08:59 Last Admin: 01/09/20 08:03 Dose: 2 sprays Documented by: Promethazine HCl 12.5 mg/ (Sodium Chloride) 50.5 mls @ 202 mls/hr IV Q6H PRN PRN Reason: Nausea And Vomiting Stop: 02/06/20 04:13 Piperacillin Sod/Tazobactam (Sod 3.375 gm/ Dextrose) 115 mls @ 28.75 mls/hr IV Q8H [facility]; Protocol Stop: 01/17/20 11:59 Last Admin: 01/09/20 12:20 Dose: 28.8 mls/hr Documented by: Lamotrigine (Lamictal) 300 mg PO BID [facility] Stop: 02/06/20 08:59 Last Admin: 01/09/20 08:02 Dose: 300 mg Documented by: Lamotrigine (Lamictal) 50 mg PO BID [facility] Stop: 02/06/20 08:59 Last Admin: 01/09/20 08:02 Dose: 50 mg Documented by: Levetiracetam (Keppra) 750 mg PO BID [facility] Stop: 02/06/20 08:59 Last Admin: 01/09/20 08:02 Dose: 750 mg Documented by: Levothyroxine Sodium (Synthroid) 100 mcg PO DAILYBB [facility] Stop: 02/06/20 06:29 Last Admin: 01/09/20 05:31 Dose: 100 mcg Documented by: Miscellaneous (Order Awaiting Action) 1 ea N/A QS [facility] Stop: 02/06/20 07:59 Last Admin: 01/09/20 07:25 Dose: Not Given Documented by: Miscellaneous Information (Consult) 1 ea N/A UD PRN PRN Reason: Consult Stop: 02/06/20 05:33 Multivitamins (Multivitamin Tab) 1 tab PO QAM [facility] Stop: 02/06/20 08:59 Last Admin: 01/09/20 08:02 Dose: 1 tab Documented by: Polyethylene Glycol (Miralax Powder Packet) 17 gm PO BID [facility] Stop: 02/06/20 08:59 Last Admin: 01/09/20 08:02 Dose: 17 gm Documented by: (1) Cerebral palsy Cerebral palsy type: spastic hemiplegic Qualified Code(s): 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
[2020-01-09] MEDS: CIPROFLOXACIN 500 MG TAB PO SCH (20:01)
[2020-01-10] MEDS: LEVOTHYROXINE SODIUM 100 MCG TABLET PO SCH (06:37)
[2020-01-10] MEDS: MULTIVITAMIN TAB PO SCH (07:56)
[2020-01-10] MEDS: FLUTICASONE PROPIONATE NA SPR 16 GM BTL SCH (07:56)
[2020-01-10] MEDS: CARBAMAZEPINE 100 MG TABCR PO SCH (07:56)
[2020-01-10] MEDS: POLYETHYLENE (MIRALAX) 17 GM PACK PO SCH (07:56)
[2020-01-10] MEDS: ENOXAPARIN INJ 40 MG/0.4 ML SYR SQ SCH (07:56)
[2020-01-10] MEDS: levETIRAcetam 250 MG TAB PO SCH (07:56)
[2020-01-10] MEDS: CIPROFLOXACIN 500 MG TAB PO SCH (07:57)
[2020-01-10] MEDS: lamoTRIgine 100 MG TAB PO SCH (07:57)
[2020-01-10] MEDS: lamoTRIgine 25 MG TAB PO SCH (07:57)
[2020-01-10] MEDS: ASPIRIN 81 MG ECTAB PO SCH (07:57)
--- NOTE | 2020-01-10 10:22 | Discharge Summary ---
Date of Service January 10, 2020 Admission HPI Per Admitting Provider History obtained from patient caregiver and records. Unable to obtain history from patient secondary to intellectual impairment/sedation. Medical history significant for chronic diastolic HF as per records (65 to 70%, TTE 2019), interstitial lung disease as per records, seizure disorder, cerebral palsy/intellectual impairment, hypothyroidism, urinary retention with a chronic indwelling Rodriguez catheter, recurrent UTIs on chronic methenamine suppression Rx, history DVT as per records. Last confinement July 2019 for respiratory failure secondary to decompensated heart failure. Some weight gain noted at home the last few days. No complaints of chest pain, S OB as per staff. Additional Lasix dose ordered by PCP as per caregiver. Yesterday patient noted to be agitated and yelling out. Episode of emesis. No cough, diarrhea symptoms noted. No respiratory distress noted at home as per staff. At the ER, patient given Haldol for agitation. Lasix given for possible CHF. MEDICAL HISTORY: As above. SURGICAL HISTORY: She had hip replacement on the right, urologic procedure. FAMILY HISTORY: Heart disease PERSONAL/ SOCIAL HISTORY: Nonsmoker. [facility] resident. Admission Exam Per Admitting Provider GENERAL: Lethargic, occasionally crying out, no respiratory distress SKIN: Normal color, warm HEENT: [place] palpebral conjunctivae, no ptosis, dry buccal mucosa NECK : Supple, no tenderness CHEST : CTA, no tenderness HEART : RRR, no obvious murmurs ABDOMEN: Some distention, minimal hypogastric tenderness EXTREMITIES : Chronic left upper extremity contracture, no LE swelling/tenderness NEUROLOGIC : Lethargic , no facial asymmetry, no other gross focality Principal Diagnosis Catheter-associated UTI 2/2 Pseudomonas Indwelling rodriguez catheter Hyponatremia Discharge Exam CONSTITUTIONAL: WNWD, 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 normal respiratory effort CARDIOVASCULAR: regular rate and rhythm, S1 and 2 heard without murmurs, gallops or rubs, no JVD, no peripheral edema GASTROINTESTINAL: soft, nontender, no guarding. Limited exam as patient is resisting examination to some degree. MUSCULOSKELETAL: cannot over her legs on her own, arms/hands are contracted and patient has some voluntary control but this is limited. SKIN: warm and dry NEUROLOGIC: alert and cooperative. Unclear if she is oriented to what is going on. Discharge Data Allergies Allergy/AdvReac Type Severity Reaction Status Date / Time No Known Allergies Allergy Unknown Verified 01/07/20 00:15 Consultations 01/07/20 02:01 ED Decision to Admit Stat Ordered Studies 01/06/20 23:38 CT head/brain wo con Urgent 01/07/20 00:42 CT abd pelvis IV con only Urgent Hospital Course (1) Catheter-associated urinary tract infection: (2) Metabolic encephalopathy: (3) Cerebral palsy: 74-year-old female with cerebral palsy and intellectual delay who has an indwelling Rodriguez catheter chronically presented to the emergency room after a's staff at her personal-retirement noted vomiting and agitation in the patient's behavior. She was admitted to the hospitalist service for metabolic enc ephalopathy that was likely multifactorial in nature. She was noted to have hyponatremia with a sodium of 127. She also was found to have a urinary tract infection. She was empirically started on Zosyn therapy with subsequent clinical improvement. She began tolerating oral food without issue and mentating at her baseline. Urine cultures grew pansensitive Pseudomonas aeruginosa and her antibiotic was switched to ciprofloxacin. Her Rodriguez catheter was exchanged on 01/09/2020. At time of discharge she was mentating at baseline and tolerating p.o. well. There was no further vomiting and she remained afebrile for at least 48 hours prior to discharge. Close primary care follow-up was recommended to ensure she is still doing well post hospital discharge. Of note blood cultures were negative for 48 hours prior to discharge with final read pending at time of discharge. She was also noted to be euvolemic the entire stay with no evidence of worsening interstitial lung disease or evidence of congestive heart failure. Also of note, CT scan did reveal some potential colitis with findings of mild rectosigmoid wall thickening. However, the patient is known to have chronic constipation, had normal bowel movements during the admission, had no guarding to palpation of the abdomen or reports of abdominal pain or tenderness, and ate heartily when presented with food. This is not consistent with a colitis diagnosis. Total Time Total Time Spent Total Time Spent (In Minutes): 60 Total Time Includes: Examination of the Patient, Discharge Planning, Medication Reconciliation and Communication With Other Providers Discharge Plan Discharge Items Patient Disposition: Personal Long Term Reason For Visit: HYPONATREMIA Discharge Diagnosis: Catheter-associated UTI 2/2 Pseudomonas Hyponatremia-resolved Condition on Discharge: Good Activity: Resume your previous activity Non-emergency contact: Primary Care Provider Call non-emergency contact if: you have any medication questions, your symptoms worsen, your pain is not controlled, your pain is worsening, your pain is unusual for you, your pain is concerning for you and you have a fever Follow-up/Referrals: Lora Carvalho, [Primary Care Provider] - Diet: Heart Healthy Addtl Attending Provider Instructions: Please take all medications as instructed on discharge list below. You are being given a short course of antibiotics to finish that was started while you were in the hospital. Your Rodriguez catheter was exchanged on 01/09/2020. It is recommended that you follow-up with your primary care physician (PCP) within 1-2 weeks of discharge from the hospital to ensure you are still doing well. It was a pleasure taking care of you! Please call if you have any questions or problems. You can reach a [facility] hospitalist on duty at [facility] 24 hours a day by calling [phone]. Take care of yourself. Laurie Gonzalez DO [facility] Pending Studies at Discharge: No Stand-Alone Forms: My [facility] [place], Smoking Cessation Skilled Items Patient informed of condition?: Yes DNR: No Discharge Level of Care: Other Communicable Disease: No Discharge Prognosis: Stable Lines: None Urinary Catheter: Yes Medications and DC Order Prescriptions: New ciprofloxacin HCl 500 mg Tablet 500 mg PO BID Qty: 14 RF: 0 Continued multivitamin [Multiple Vitamins] Tablet 1 tab PO QAM Qty: 0 RF: 0 carbamazepine [Carbatrol] 300 mg Capsule, Er Multiphase 12 Hr 300 mg PO BID Qty: 0 RF: 0 Aloe [place] Protectant Ointment 43 % Ointment 1 applic TOPICAL BID Qty: 0 RF: 0 levothyroxine 100 mcg Tablet 100 mcg PO QAM Qty: 0 RF: 0 methenamine hippurate 1 gram Tablet 1 g PO BID Qty: 0 RF: 0 aspirin 81 mg Tablet,Chewable 81 mg PO QAM Qty: 0 RF: 0 Prolia 60 mg/mL Syringe 60 mg subcut UD Qty: 0 RF: 0 cholecalciferol (vitamin D3) 50 mcg (2,000 unit) capsule 2,000 units PO QAM RF: 0 lamotrigine [Lamictal] 150 mg Tablet 300 mg PO BID RF: 0 polyethylene glycol 3350 [Miralax] 17 gram Powder In Packet 17 g PO BID RF: 0 Linzess 290 mcg Capsule 290 mcg PO QAM RF: 0 fluticasone propionate 50 mcg/actuation [place],Suspension 2 spray INTRANASAL DAILY RF: 0 levetiracetam 750 mg tablet 750 mg PO BID RF: 0 lamotrigine 100 mg tablet 50 mg PO BID RF: 0 metronidazole 0.75 % cream 1 applic TOPICAL BID RF: 0 furosemide 20 mg tablet 20 mg PO BID RF: 0 hydrocortisone [Proctozone-HC] 2.5 % Cream With Perineal Applicator 1 applic [place] BID PRN (Reason: Hemorrhoids) RF: 0 Robitussin Cough-Chest Mariano DM 5-100 mg/5 mL Liquid 10 ml PO Q4H PRN (Reason: cold/cough/congestion) RF: 0 acetaminophen [Tylenol] 325 mg Tablet 650 mg PO Q4H MDD max 3 gms/24h PRN (Reason: pain/fever) RF: 0 Triple Antibiotic 3.5mg-400 unit- 5,000 unit/gram Ointment 1 applic TOPICAL DIRECTED RF: 0 guaifenesin [Mucinex] 600 mg Tablet Extended Release 12hr 600 mg PO Q12H PRN (Reason: Congestion) RF: 0 Discharge Orders: Discharge Order (Routine); Ordered 01/10/20 Ordered By: Laurie Gonzalez Admission Data Admit Date/Time: 01/07/20 02:51 Attending Provider: Laurie Gonzalez Admit Provider: Jaya Franz Primary Care Provider: Lora Carvalho Other Providers: [place] ; Jaya Franz
== END 2020-01-10 12:00 | disposition home or self-care (01) | DRG 698 ==
LOC: ED 23:24 → 2W 01-07 02:51

== ENCOUNTER 2020-03-29 20:04 | Inpatient (IN) ==
--- NOTE | 2020-03-29 20:26 | Emergency Department Note ---
History of Present Illness General Chief complaint: Lethargic Time Seen by Provider: 03/29/20 20:13 Source: other (RN) Mode of arrival: EMS Limitations: other (Patient is normally nonverbal) History of Present Illness Provider complaint: Fever Onset (ago): day(s) Quality: + other (100.5 F) Associated symptoms: + other (Lethargy); no cough, no nausea/vomiting and no shortness of breath History is very limited as the patient is normally nonverbal. She is coming from [facility] via EMS. Apparently she had a fever today of 100.5. She has been lethargic for the past several days. She has not been coughing or short of nohelia th. She has not vomited. She did have COVID testing March 07. The results are unknown. It is assumed that she is negative as they did not make any provisions for her. Home Medications Home Medications Medication Instructions Recorded Confirmed Type multivitamin [Multiple Vitamins] 1 tab PO QAM #0 02/27/11 03/10/20 History carbamazepine [Carbatrol] 300 mg PO BID #0 06/29/12 03/10/20 History Aloe [place] Protectant Ointment 1 applic TOPICAL BID #0 11/11/14 03/10/20 History Prolia 60 mg SUBCUT UD #0 07/17/17 03/10/20 History aspirin 81 mg PO QAM #0 07/17/17 03/10/20 History levothyroxine 100 mcg PO QAM #0 07/17/17 03/10/20 History methenamine hippurate 1 g PO BID #0 07/17/17 03/10/20 History Linzess 290 mcg PO QAM 06/11/18 03/10/20 History lamotrigine [Lamictal] 300 mg PO BID 06/11/18 03/10/20 History polyethylene glycol 3350 [Miralax] 17 g PO BID 06/11/18 03/10/20 History fluticasone propionate 2 spray INTRANASAL QAM 10/11/18 03/10/20 History lamotrigine 50 mg PO BID 10/11/18 03/10/20 History levetiracetam 750 mg PO BID 10/11/18 03/10/20 History cholecalciferol (vitamin D3) 50 2,000 units PO QAM 08/20/19 03/10/20 History mcg (2,000 unit) capsule furosemide 20 mg tablet 20 mg PO DAILY PRN tab 12/22/19 03/10/20 History Robitussin Cough-Chest Mariano DM 10 ml PO Q4H PRN 01/07/20 03/07/20 History Triple Antibiotic 1 applic TOPICAL DIRECTED PRN 01/07/20 03/07/20 History acetaminophen [Tylenol] 650 mg PO Q4H PRN MDD max 3 gms/24h 01/07/20 03/10/20 History guaifenesin [Mucinex] 600 mg PO Q12H PRN 01/07/20 03/07/20 History hydrocortisone [Proctozone-HC] 1 applic NM BID PRN 01/07/20 03/07/20 History furosemide 40 mg PO BID 03/07/20 03/10/20 History potassium chloride 10 meq PO QAM 03/07/20 03/10/20 History Allergies Allergy/AdvReac Type Severity Reaction Status Date / Time No Known Allergies Allergy Unknown Verified 03/10/20 08:04 Past Med/Surg History Medical History Cerebral palsy Chronic indwelling Alvarado catheter Chronic obstructive pulmonary disease oxygen daily Colon abnormality Alvarado catheter in place History of DVT (deep vein thrombosis) "2002- right lower extremity, completed Coumadin therapy" On 01/30/15 10:26 Francine Mckeon wrote "2002- right lower extremity" History of recurrent UTI (urinary tract infection) Hypothyroidism Intellectual disability Nonverbal On home oxygen therapy 2L N/C at all times Proctitis Pulmonary fibrosis Seizure disorder last was "a couple months ago", "staring type seizures", denies grand mal--on keppra, lamictal and carbamazepine ---follows with Dr. 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 Unobtainable due to cognitive status Physical Exam Vital Signs Vital Signs - 24 hr 03/29/20 20:09 03/29/20 20:21 03/29/20 20:24 Temperature 37 C Temperature Source Oral Pulse Rate 71 91 H Pulse Rate from SpO2 Sensor 73 82 Pulse Rhythm Regular Pulse Strength Normal Respiratory Rate 19 31 H Respiratory Effort / Characteristics Non-Labored Respiratory Depth Normal Respiratory Pattern Regular Blood Pressure 99/74 L Blood Pressure Mean 79 Blood Pressure Position Sitting Pulse Oximetry 100 100 Oxygen Delivery Method Nasal Cannula Nasal Cannula Oxygen Flow Rate 2 Sepsis Recent Fever Within 48 Hours Yes Sepsis New/Unexplained Change in Mental Status Yes Sepsis Action Taken by Nursing Physician Notified 03/29/20 20:30 03/29/20 20:45 03/29/20 20:50 Temperature Temperature Source Pulse Rate 81 75 68 Pulse Rate from SpO2 Sensor 76 73 69 Pulse Rhythm Pulse Strength Respiratory Rate 16 19 19 Respiratory Effort / Characteristics Respiratory Depth Respiratory Pattern Blood Pressure Blood Pressure Mean Blood Pressure Position Pulse Oximetry 100 100 100 Oxygen Delivery Method Oxygen Flow Rate Sepsis Recent Fever Within 48 Hours Sepsis New/Unexplained Change in Mental Status Sepsis Action Taken by Nursing 03/29/20 20:57 03/29/20 20:58 03/29/20 21:00 Temperature Temperature Source Pulse Rate 81 Pulse Rate from SpO2 Sensor 79 Pulse Rhythm Pulse Strength Respiratory Rate 21 Respiratory Effort / Characteristics Non-Labored Respiratory Depth Respiratory Pattern Blood Pressure Blood Pressure Mean Blood Pressure Position Pulse Oximetry 100 100 Oxygen Delivery Method Nasal Cannula Oxygen Flow Rate 2 Sepsis Recent Fever Within 48 Hours Sepsis New/Unexplained Change in Mental Status Sepsis Action Taken by Nursing 03/29/20 21:10 03/29/20 21:16 03/29/20 21:18 Temperature Temperature Source Pulse Rate 78 79 81 Pulse Rate from SpO2 Sensor 76 81 79 Pulse Rhythm Pulse Strength Respiratory Rate 19 20 22 Respiratory Effort / Characteristics Respiratory Depth Respiratory Pattern Blood Pressure 104/68 Blood Pressure Mean 73 Blood Pressure Position Pulse Oximetry 100 100 100 Oxygen Delivery Method Oxygen Flow Rate Sepsis Recent Fever Within 48 Hours Sepsis New/Unexplained Change in Mental Status Sepsis Action Taken by Nursing 03/29/20 21:20 03/29/20 21:30 03/29/20 21:34 Temperature Temperature Source Pulse Rate 83 72 75 Pulse Rate from SpO2 Sensor 86 70 79 Pulse Rhythm Pulse Strength Respiratory Rate 23 20 19 Respiratory Effort / Characteristics Respiratory Depth Respiratory Pattern Blood Pressure 105/67 Blood Pressure Mean 71 Blood Pressure Position Pulse Oximetry 100 100 100 Oxygen Delivery Method Oxygen Flow Rate Sepsis Recent Fever Within 48 Hours Sepsis New/Unexplained Change in Mental Status Sepsis Action Taken by Nursing 03/29/20 21:35 03/29/20 21:45 03/29/20 21:46 Temperature Temperature Source Pulse Rate 74 84 83 Pulse Rate from SpO2 Sensor 76 80 82 Pulse Rhythm Pulse Strength Respiratory Rate 20 22 20 Respiratory Effort / Characteristics Respiratory Depth Respiratory Pattern Blood Pressure 123/81 Blood Pressure Mean 95 Blood Pressure Position Pulse Oximetry 100 100 100 Oxygen Delivery Method Oxygen Flow Rate Sepsis Recent Fever Within 48 Hours Sepsis New/Unexplained Change in Mental Status Sepsis Action Taken by Nursing 03/29/20 22:00 03/29/20 22:12 03/29/20 22:15 Temperature Temperature Source Pulse Rate 79 76 67 Pulse Rate from SpO2 Sensor 80 73 68 Pulse Rhythm Pulse Strength Respiratory Rate 17 19 21 Respiratory Effort / Characteristics Respiratory Depth Respiratory Pattern Blood Pressure 98/44 L 92/53 L Blood Pressure Mean 75 62 Blood Pressure Position Pulse Oximetry 100 100 100 Oxygen Delivery Method Oxygen Flow Rate Sepsis Recent Fever Within 48 Hours Sepsis New/Unexplained Change in Mental Status Sepsis Action Taken by Nursing 03/29/20 22:30 03/29/20 22:36 Temperature Temperature Source Pulse Rate 80 Pulse Rate from SpO2 Sensor 78 Pulse Rhythm Pulse Strength Respiratory Rate 18 20 Respiratory Effort / Characteristics Non-Labored Respiratory Depth Respiratory Pattern Blood Pressure 104/49 L Blood Pressure Mean 59 Blood Pressure Position Pulse Oximetry 100 100 Oxygen Delivery Method Nasal Cannula Oxygen Flow Rate 2 Sepsis Recent Fever Within 48 Hours Sepsis New/Unexplained Change in Mental Status Sepsis Action Taken by Nursing The physical exam is limited due to the patient's condition. Constitutional: Vital signs reviewed. Eyes: Pupils are equal round reactive to light. Conjunctiva are noninjected. HENT: Mucous membranes are dry. Respiratory: Clear to auscultation bilaterally. Breath sounds are equal bilaterally. Cardiovascular: Regular rate and rhythm. No murmurs, rubs or gallops. GI: Soft, nondistended and nontender. Bowel sounds are present. Alvarado catheter in place draining dark yellow urine. Musculoskeletal: No peripheral edema. Integumentary: No cyanosis. Neurological: The patient is awake and alert. She is nonverbal. Psychiatric: Unable to assess. Course Administered Medications Discontinued Medications Sodium Chloride (Nss 1000ml) 500 mls @ 999 mls/hr IV .Q31M ONE Stop: 03/29/20 21:52 Last Infusion: 03/29/20 22:33 Dose: 0 mls/hr Documented by: [id number] Admin: 03/29/20 21:29 Dose: 999 mls/hr Documented by: [id number] Piperacillin Sod/Tazobactam Sod (Zosyn) 4.5 gm in 120 mls @ 240 mls/hr IV NOW ONE Stop: 03/29/20 21:51 Last Infusion: 03/29/20 22:00 Dose: 0 mls/hr Documented by: [id number] Admin: 03/29/20 21:30 Dose: 240 mls/hr Documented by: [id number] Medical Decision Making Differential Diagnosis Sepsis, UTI, pneumonia, bacteremia, metabolic derangement Medical Records Attestation: I reviewed the patient's medical records. The patient was admitted in December for catheter associated UTI and Pseudomonas with hyponatremia. She had a negative coronavirus test on March 08. Home Medications Current Medication List: was personally reviewed by me Laboratory Data Attestation: I reviewed the patient's lab results. Result diagrams: 03/29/20 21:13 03/29/20 21:13 Lab Results 03/29/20 03/29/20 03/29/20 Range/Units 20:22 21:13 21:13 WBC 5.68 (4.8-10.8) K/uL RBC 3.82 L (4.2-5.4) M/uL Hgb 11.2 L (12.0-16.0) g/dL Hct 34.4 L (37-47) % MCV 90.1 (80-100) fL MCH 29.3 (25-34) pg MCHC 32.6 (32-36) g/dL RDW Std Deviation 42.6 (36.4-46.3) fL RDW Coeff of Db 12.9 (11.5-14.5) % Plt Count 366 (130-400) K/uL MPV 9.2 (7.4-10.4) fL Immature Gran % (Auto) 0.4 % Neut % (Auto) 42.3 % Lymph % (Auto) 34.7 % Ocean % (Auto) 16.2 % Eos % (Auto) 6.0 % Baso % (Auto) 0.4 % Neut # (Auto) 2.41 (1.4-6.5) K/uL Lymph # (Auto) 1.97 (1.2-3.4) K/uL Ocean # (Auto) 0.92 H (0.11-0.59) K/uL Eos # (Auto) 0.34 (0-0.5) K/uL Baso # (Auto) 0.02 (0-0.2) K/uL Immature Gran # (Auto) 0.02 (0.00-0.02) K/uL PT 10.7 (9.0-12.0) Seconds INR 1.0 (0.9-1.1) APTT 27.1 (21.0-31.0) Seconds PTT Ratio 1.0 Sodium (136-145) mmol/L Potassium (3.5-5.1) mmol/L Chloride (98-107) mmol/L Carbon Dioxide (21-32) mmol/L Anion Gap (3-11) BUN (7-18) mg/dl Creatinine (0.6-1.2) mg/dl Est Cr Clr Drug Dosing Est GFR ( Amer) Est GFR (Non-Af Amer) BUN/Creatinine Ratio (10-20) Glucose (70-99) mg/dl Lactate (0.4-2.0) mmol/L Calcium (8.5-10.1) mg/dl Magnesium (1.8-2.4) mg/dl Total Bilirubin (0.2-1) mg/dl AST (15-37) U/L ALT (12-78) U/L Alkaline Phosphatase (45-117) U/L Total Protein (6.4-8.2) gm/dl Albumin (3.4-5.0) gm/dl Globulin (2.5-4.0) gm/dl Albumin/Globulin Ratio (0.9-2) Urine Color Yellow Urine Appearance Cloudy A (Clear) Urine pH 5.5 (4.5-7.5) Ur Specific Agenda 1.012 (1.000-1.030) Urine Protein 1+ H (Negative) Urine Glucose (UA) Negative (Negative) Urine Ketones Negative (Negative) Urine Blood 1+ H (Negative) Urine Nitrite Negative (Negative) Urine Bilirubin Negative (Negative) Urine Urobilinogen Negative (Negative) Ur Leukocyte Esterase 3+ H (Negative) Urine WBC (Auto) >30 H (0-5) /hpf Urine RBC (Auto) 5-10 H (0-4) /hpf U Hyaline Cast (Auto) 10-30 H (0-5) /lpf U Epithel Cells (Auto) >30 H (0-5) /lpf Urine Bacteria (Auto) 1+ H (Negative) Urine Yeast Present A (None Prsent) 03/29/20 03/29/20 Range/Units 21:13 21:13 WBC (4.8-10.8) K/uL RBC (4.2-5.4) M/uL Hgb (12.0-16.0) g/dL Hct (37-47) % MCV (80-100) fL MCH (25-34) pg MCHC (32-36) g/dL RDW Std Deviation (36.4-46.3) fL RDW Coeff of Db (11.5-14.5) % Plt Count (130-400) K/uL MPV (7.4-10.4) fL Immature Gran % (Auto) % Neut % (Auto) % Lymph % (Auto) % Ocean % (Auto) % Eos % (Auto) % Baso % (Auto) % Neut # (Auto) (1.4-6.5) K/uL Lymph # (Auto) (1.2-3.4) K/uL Ocean # (Auto) (0.11-0.59) K/uL Eos # (Auto) (0-0.5) K/uL Baso # (Auto) (0-0.2) K/uL Immature Gran # (Auto) (0.00-0.02) K/uL PT (9.0-12.0) Seconds INR (0.9-1.1) APTT (21.0-31.0) Seconds PTT Ratio Sodium 133 L (136-145) mmol/L Potassium 3.5 (3.5-5.1) mmol/L Chloride 100 (98-107) mmol/L Carbon Dioxide 27 (21-32) mmol/L Anion Gap 6.0 (3-11) BUN 17 (7-18) mg/dl Creatinine 0.99 (0.6-1.2) mg/dl Est Cr Clr Drug Dosing Not Reportable Est GFR ( Amer) 65.1 Est GFR (Non-Af Amer) 56.1 BUN/Creatinine Ratio 16.8 (10-20) Glucose 105 H (70-99) mg/dl Lactate 1.1 (0.4-2.0) mmol/L Calcium 8.9 (8.5-10.1) mg/dl Magnesium 1.9 (1.8-2.4) mg/dl Total Bilirubin 0.3 (0.2-1) mg/dl AST 12 L (15-37) U/L ALT 21 (12-78) U/L Alkaline Phosphatase 104 (45-117) U/L Total Protein 7.4 (6.4-8.2) gm/dl Albumin 3.0 L (3.4-5.0) gm/dl Globulin 4.4 H (2.5-4.0) gm/dl Albumin/Globulin Ratio 0.7 L (0.9-2) Urine Color Urine Appearance (Clear) Urine pH (4.5-7.5) Ur Specific Agenda (1.000-1.030) Urine Protein (Negative) Urine Glucose (UA) (Negative) Urine Ketones (Negative) Urine Blood (Negative) Urine Nitrite (Negative) Urine Bilirubin (Negative) Urine Urobilinogen (Negative) Ur Leukocyte Esterase (Negative) Urine WBC (Auto) (0-5) /hpf Urine RBC (Auto) (0-4) /hpf U Hyaline Cast (Auto) (0-5) /lpf U Epithel Cells (Auto) (0-5) /lpf Urine Bacteria (Auto) (Negative) Urine Yeast (None Prsent) Imaging Data Attestation: I personally reviewed and interpreted this imaging study as follows: My Impression: Chest x-ray per my interpretation shows no acute cardiopulmonary process. ECG Data Attestation: I personally reviewed and interpreted this ECG as follows: Indication: + other (Lethargy) Rate (beats per minute): 73 Rhythm: + normal sinus ECG Gloster: + Normal ECG ST segments: no ST elevation ECG Findings: no PVCs MDM Narrative I did evaluate the patient as noted above. History and physical are limited as described above. She is coming in with fever and lethargy. She did have a negative COVID test 2 weeks ago. She is slightly hypertensive. IV access was established. I did treat her with normal saline IV. I did place an order for continuous cardiac monitoring. The monitor showed normal sinus rhythm at a rate of 80. I did order and personally review the patient's 12-lead EKG as described above. There are no acute ischemic changes. I did order and personally reviewed the images of the patient's chest x-ray as described above. There is no evidence of pneumonia. I did order a urine analysis. She does have an infection. I did order and review the patient's blood work as noted in the electronic medical record. She is anemic. Her white count is not elevated. Electrolytes are unremarkable other than a sodium of 133. On reassessment the p atrhoda's blood pressure is improved. She will be hospitalized for further care and evaluation. I did treat her with Zosyn as showed her prior urine culture grew out Pseudomonas. I did discuss the case with the hospitalist and rn case management. Impression & Plan Catheter-associated urinary tract infection, Hyponatremia, Hypotension Discharge Plan Visit Data Chief Complaint: Lethargic ED Provider: Jose E Neal Discharge Problem: Catheter-associated urinary tract infection, Hyponatremia, Hypotension Patient Disposition: Being Evaluated by Hospitalist Forms Stand Alone Forms: My [facility] Prescriptions Prescriptions: No Action multivitamin [Multiple Vitamins] Tablet 1 tab PO QAM Qty: 0 RF: 0 carbamazepine [Carbatrol] 300 mg Capsule, Er Multiphase 12 Hr 300 mg PO BID Qty: 0 RF: 0 Aloe [place] Protectant Ointment 43 % Ointment 1 applic TOPICAL BID Qty: 0 RF: 0 levothyroxine 100 mcg Tablet 100 mcg PO QAM Qty: 0 RF: 0 methenamine hippurate 1 gram Tablet 1 g PO BID Qty: 0 RF: 0 aspirin 81 mg Tablet,Chewable 81 mg PO QAM Qty: 0 RF: 0 Prolia 60 mg/mL Syringe 60 mg subcut UD Qty: 0 RF: 0 cholecalciferol (vitamin D3) 50 mcg (2,000 unit) capsule 2,000 units PO QAM RF: 0 lamotrigine [Lamictal] 150 mg Tablet 300 mg PO BID RF: 0 polyethylene glycol 3350 [Miralax] 17 gram Powder In Packet 17 g PO BID RF: 0 Linzess 290 mcg Capsule 290 mcg PO QAM RF: 0 fluticasone propionate 50 mcg/actuation Likely,Suspension 2 spray INTRANASAL QAM RF: 0 levetiracetam 750 mg tablet 750 mg PO BID RF: 0 lamotrigine 100 mg tablet 50 mg PO BID RF: 0 furosemide 20 mg tablet 20 mg PO DAILY PRN (Reason: Weight Gain) RF: 0 hydrocortisone [Proctozone-HC] 2.5 % Cream With Perineal Applicator 1 applic NM BID PRN (Reason: Hemorrhoids) RF: 0 Robitussin Cough-Chest Mariano DM 5-100 mg/5 mL Liquid 10 ml PO Q4H PRN (Reason: cold/cough/congestion) RF: 0 acetaminophen [Tylenol] 325 mg Tablet 650 mg PO Q4H MDD max 3 gms/24h PRN (Reason: pain/fever) RF: 0 Triple Antibiotic 3.5mg-400 unit- 5,000 unit/gram Ointment 1 applic TOPICAL DIRECTED PRN (Reason: abrasions) RF: 0 guaifenesin [Mucinex] 600 mg Tablet Extended Release 12hr 600 mg PO Q12H PRN (Reason: Congestion) RF: 0 furosemide 40 mg Tablet 40 mg PO BID RF: 0 potassium chloride 10 mEq Capsule, Extended Release 10 meq PO QAM RF: 0 Referrals Referrals: Lora Carvalho DO [Primary Care Provider] -
[2020-03-29 20:38] LABS: Appearance Urine Cloudy (Clear); Bacteria Urine Automated 1+ (Negative); Bilirubin Urine Negative (Negative); Blood Urine 1+ (Negative); Color Urine Yellow; Epithelial Cell Urine Auto >30 /lpf (0-5); Glucose Urine UA Negative (Negative); Ketones Urine Negative (Negative); Leukocyte Esterase Urine 3+ (Negative); Nitrite Urine Negative (Negative); Protein Urine 1+ (Negative); Specific Gravity Urine 1.012 (1.000-1.030); Urobilinogen Urine Negative (Negative); WBC Urine Automated >30 /hpf (0-5); pH Urine 5.5 (4.5-7.5)
[2020-03-29] MEDS ORDERED: PIPERACILLIN/TAZOBACTAM 4.5 GM/120 ML BAG IV ONE (21:22)
[2020-03-29] MEDS ORDERED: SODIUM CHLORIDE 0.9% 1000ML 500 ML IV ONE (21:22)
[2020-03-29] MEDS ORDERED: PIPERACILL/TAZOBAC CONSULT ACTIVE PRN (21:22)
[2020-03-29 21:29] LABS: Basophils # (auto) 0.02 K/uL (0-0.2); Basophils % (auto) 0.4 %; Eosinophils # (auto) 0.34 K/uL (0-0.5); Hematocrit (blood only) 34.4 % (37-47); Hemoglobin 11.2 g/dL (12.0-16.0); Immature Granulocytes # (auto) 0.02 K/uL (0.00-0.02); Immature Granulocytes % (auto) 0.4 %; Lymphocytes # (auto) 1.97 K/uL (1.2-3.4); Lymphocytes % (auto) 34.7 %; Mean Corpuscular Hemoglobin 29.3 pg (25-34); Mean Corpuscular Hgb Conc 32.6 g/dL (32-36); Mean Corpuscular Volume 90.1 fL (80-100); Mean Platelet Volume 9.2 fL (7.4-10.4); Monocytes # (auto) 0.92 K/uL (0.11-0.59); Monocytes % (auto) 16.2 %; Neutrophils # (auto) 2.41 K/uL (1.4-6.5); Neutrophils % (auto) 42.3 %; Platelet Count 366 K/uL (130-400); RDW Coefficient of Variation 12.9 % (11.5-14.5); RDW Standard Deviation 42.6 fL (36.4-46.3); Red Blood Count 3.82 M/uL (4.2-5.4); White Blood Count 5.68 K/uL (4.8-10.8)
[2020-03-29 21:48] LABS: Alanine Aminotransferase 21 U/L (12-78); Aspartate Aminotransferase 12 U/L (15-37); BUN Creatinine Ratio 16.8 (10-20); Blood Urea Nitrogen 17 mg/dl (7-18); Calcium 8.9 mg/dl (8.5-10.1); Carbon Dioxide 27 mmol/L (21-32); Chloride 100 mmol/L (98-107); Est GFR (African American) 65.1; Est GFR (Non-African American) 56.1; Glucose 105 mg/dl (70-99); Magnesium 1.9 mg/dl (1.8-2.4); Partial Thromboplastin Time 27.1 Seconds (21.0-31.0); Potassium 3.5 mmol/L (3.5-5.1); Prothrombin Time 10.7 Seconds (9.0-12.0); Sodium 133 mmol/L (136-145)
[2020-03-29 21:51] LABS: Albumin Globulin Ratio 0.7 (0.9-2); Alkaline Phosphatase 104 U/L (45-117); Bilirubin,Total 0.3 mg/dl (0.2-1); Globulin 4.4 gm/dl (2.5-4.0); Total Protein 7.4 gm/dl (6.4-8.2)
[2020-03-30] MEDS ORDERED: guaiFENesin 600 MG TABCR PO PRN (02:03)
[2020-03-30] MEDS ORDERED: NITROGLYCERIN SL 0.4 MG/TAB TAB SL PRN (02:03)
[2020-03-30] MEDS ORDERED: ONDANSETRON INJ 2 MG/ML 2 ML VIAL IV PRN (02:03)
[2020-03-30] MEDS: SODIUM CHLORIDE 0.9% 1000ML 1,000 ML IV SCH ×2 (02:29→14:42)
--- NOTE | 2020-03-30 02:58 | History and Physical Report ---
DATE OF ADMISSION: 03/30/2020 CHIEF COMPLAINT: Lethargy. HISTORY OF PRESENT ILLNESS: This is a 74-year-old female with past medical history significant for cerebral palsy ,intellectual impairment, chronic diastolic congestive heart failure, EF of 65-70% on echo in 2019, interstitial lung disease, history of seizure disorder, hypothyroidism, urinary retention with chronic indwelling Alvarado catheter, recurrent UTIs and on chronic methenamine suppression treatment, history of DVT as per records, history of gastroesophageal reflux disease, history of constipation, history of hypertension. The patient is from personal halfway. The patient is generally nonverbal, caregiver in the room. The patient had today fever whole day and she is also seem to be somewhat lethargic than usual At baseline, she is mostly nonverbal, very rarely she speaks few words. She is wheelchair bound. Otherwise, she generally eats good, but today she was not eating and she was brought in here and found to have UTI .Patient is currently, seems to be comfortable. Hemodynamics are stable. No leukocytosis. UA is positive.The patient when asked if she has any pain, she is says no. When asked how she is doing, she said okay. As per caregiver, she rarely speaks.There is no reports for nausea, vomiting. Her bowels are always loose . Does not know if she has any pain .Could not get any history from the patient. ALLERGIES: No known drug allergies. PAST MEDICAL HISTORY: As mentioned above. PAST SURGICAL HISTORY: Cystoscopy, right total hip replacement. MEDICATIONS: The patient is on guaifenesin 60 mg p.o. b.i.d. p.r.n., potassium chloride 10 mEq p.o. daily, Lasix 40 mg p.o. b.i.d., MiraLax 17 grams p.o. b.i.d., hydrocortisone apply to rectum in the morning and evening as needed for hemorrhoids, Flonase 2 sprays into nostril daily, vitamin D 2000 units p.o. daily, Lamictal 350 mg p.o. b.i.d., Keppra 750 mg p.o. b.i.d., carbamazepine ER 300 mg p.o. b.i.d., levothyroxine 100 mcg p.o. daily, Linzess 290 MCG p.o. daily, Prolia 60 mg under skin once every 6 months, methenamine hippurate 1 gram p.o. b.i.d. for UTI, with multivitamins with minerals 1 tablet daily, aspirin 81 mg p.o. daily, Tylenol 650 mg p.o. q. 4 hours p.r.n. FAMILY HISTORY: Significant for father had heart disorder. Mother had hypertension. Maternal grandmother had cancer. SOCIAL HISTORY: Single, currently lives at personal halfway. No smoking, no alcohol, no drug use. REVIEW OF SYMPTOMS: Unobtainable at this time. PHYSICAL EXAMINATION: GENERAL: The patient is of moderate build, not in acute distress. VITAL SIGNS: Temperature 37, pulse 65, respiratory rate 22, blood pressure 120/48, oxygen 100% on 2 liters. HEENT: Pupils equal, round, reactive to light. NECK: No neck masses seen. CARDIOVASCULAR: S1, S2 heard, regular rate and rhythm, no murmur, no gallop. RESPIRATORY SYSTEM: Normal AP diameter. No accessory muscle use. No wheezing, no crackles. ABDOMEN: Soft, bowel sounds present. No distention. CENTRAL NERVOUS SYSTEM: The patient is mostly nonverbal, somewhat noncooperative with exam. Seems to move extremities. EXTREMITIES: No edema, no erythema. LABORATORY DATA: WBC 5.6, hemoglobin 11.2, hematocrit 34.4, platelets 366. Sodium 133, potassium 3.5, chloride 100, bicarbonate 27, BUN 17, creatinine 0.9, serum glucose 105. Lactate 1.1, calcium 8.9, magnesium 1.9, total bilirubin 0.3, AST 12, ALT 21, alkaline phosphatase 104. Urinalysis positive for leukocyte esterase and bacteria. Chest x-ray, no obvious findings. EKG: Normal sinus rhythm, rate of 73. Poor quality rhythm. ASSESSMENT AND PLAN: This is a 74-year-old female who presents with cerebral palsy and intellectual disability, mostly wheelchair bound, chronic indwelling Alvarado catheter with recurrent UTIs, presents with lethargy and confusion and found to have a urinary tract infection. 1. Most likely Encephalopathy fro UTI. From baseline she is mostly nonverbal. She has pseudomonas infection in the recent past, UA is positive, we will place on IV Zosyn. Chest x-ray ok.No symptoms of cough or SOB As per ER recently a couple of weeks ago COVID test was done and it was negative. She has no lymphopenia on labs. Will monitor in med/tele. 2. History of seizure disorder. Continue her home medications of Lamictal, Keppra and carbamazepine. 3. Hypothyroidism. Continue Synthroid. 4. Chronic diastolic congestive heart failure, holding the Lasix and potassium supplement. Getting fluids. Monitor for new volume overload. 5. History of constipation, stool softeners. 6. Severe intellectual disability and cerebral palsy. 7. Deep venous thrombosis prophylaxis, sequential compression devices for now. 8. Disposition: Closely monitor in med/tele. Expect discharge back to personal halfway when stable. Code status, as per the caregivers does not know about code status, but as per last admission - full code. Social service to help with discharge planning. CHANEL
[2020-03-30] MEDS ORDERED: [UNRECOGNIZED DRUG - OTHER] SCH (05:00)
[2020-03-30] MEDS: LEVOTHYROXINE SODIUM 100 MCG TABLET PO SCH (05:52)
[2020-03-30] MEDS: PIPERACILLIN/TAZOBACTAM 3.375 GM in DEXTROSE 5% 100 ML IV SCH ×3 (05:52→21:45)
[2020-03-30 06:26] LABS: Basophils # (auto) 0.06 K/uL (0-0.2); Basophils % (auto) 1.2 %; Eosinophils # (auto) 0.33 K/uL (0-0.5); Eosinophils % (auto) 6.5 %; Hematocrit (blood only) 32.3 % (37-47); Hemoglobin 10.3 g/dL (12.0-16.0); Immature Granulocytes # (auto) 0.02 K/uL (0.00-0.02); Immature Granulocytes % (auto) 0.4 %; Lymphocytes % (auto) 37.2 %; Mean Corpuscular Hemoglobin 28.7 pg (25-34); Mean Corpuscular Hgb Conc 31.9 g/dL (32-36); Mean Platelet Volume 8.9 fL (7.4-10.4); Monocytes # (auto) 0.75 K/uL (0.11-0.59); Monocytes % (auto) 14.7 %; Neutrophils # (auto) 2.05 K/uL (1.4-6.5); Platelet Count 364 K/uL (130-400); RDW Standard Deviation 42.3 fL (36.4-46.3); Red Blood Count 3.59 M/uL (4.2-5.4); White Blood Count 5.11 K/uL (4.8-10.8)
--- NOTE | 2020-03-30 06:39 | XRay Report ---
XR chest 1V portable HISTORY: 74 years-old Female SEPSIS acute sepsis COMPARISON: Chest radiograph 01/07/2020 TECHNIQUE: Portable AP view of the chest FINDINGS: Patient is rotated. Limited exam secondary to left upper extremity positioning. Chronic right hemidia phragmatic elevation with right lung volume loss. There are chronic reticular interstitial opacities, right greater than left. Cardiomediastinal and hilar silhouettes are unchanged. No pneumothorax, lar ge pleural effusion, overt pulmonary edema or airspace consolidation typical for pneumonia. Degenerat sylwia changes of the shoulders and spine. Probable loose bodies of the right subscapularis and axillary recess. IMPRESSION: 1. No acute process. 2. Chronic interstitial lung disease with unchanged right hemidiaphragmatic elevation. ACT 112: Negative or not required by law. The above report was generated using voice recognition software. It may contain grammatical, syntax o r spelling errors. Electronically signed by: Sincere Delgado M.D. 03/30/2020 6:38 AM
[2020-03-30 07:20] LABS: BUN Creatinine Ratio 20.4 (10-20); Calcium 8.1 mg/dl (8.5-10.1); Creatinine Clr Calc Pharmacy 78.7 ml/min; Est GFR (African American) 103.5; Est GFR (Non-African American) 89.3; Magnesium 1.8 mg/dl (1.8-2.4); Potassium 3.1 mmol/L (3.5-5.1)
--- NOTE | 2020-03-30 08:27 | XRay Report ---
SINGLE VIEW CHEST CLINICAL HISTORY: Sepsis. FINDINGS: 2 AP, portable, upright chest radiograph are compared to study dated 03/29/2020 and correlat ed with chest CT dated 08/13/2019. The examination is degraded by portable technique and patient rotat ion. The heart is top normal for projection. The pulmonary vasculature is noncongested. There is ch ronic volume loss in the right lung with elevation of the right hemidiaphragm. Changes of chronic int erstitial lung disease are similar to previous. No airspace consolidation or large pleural effusion i s identified. No pneumothorax is seen. The skeletal structures are osteopenic. The bony thorax is melissa ssly intact. Calcified joint bodies are noted in the left shoulder. IMPRESSION: 1. Changes of chronic interstitial lung disease are similar to previous. 2. There is no evidence of superimposed airspace consolidation or pleural effusion. ACT 112: Negative or not required by law. Electronically signed by: Sam Roman M.D. 03/30/2020 8:26 AM
[2020-03-30] MEDS: levETIRAcetam 250 MG TAB PO SCH ×2 (09:00→22:36)
[2020-03-30] MEDS: ASPIRIN 81 MG CHEW PO SCH (09:00)
[2020-03-30] MEDS ORDERED: linaCLOtide 72 MCG CAPSULE PO SCH (09:00)
[2020-03-30] MEDS: MULTIVITAMIN TAB PO SCH (09:01)
[2020-03-30] MEDS: CHOLECALCIFEROL 1,000 UNITS 25 MCG TAB PO SCH (09:01)
[2020-03-30] MEDS: lamoTRIgine 100 MG TAB PO SCH ×2 (09:01→22:38)
[2020-03-30] MEDS: lamoTRIgine 25 MG TAB PO SCH ×2 (09:01→22:37)
[2020-03-30] MEDS ORDERED: POTASSIUM CHLORIDE 20 MEQ TABCR PO ONE (10:00)
--- NOTE | 2020-03-30 11:46 | Electrocardiogram Report ---
Test Reason : Blood Pressure : / mmHG Vent. Rate : 073 BPM Atrial Rate : 073 BPM P-R Int : 188 ms QRS Dur : 090 ms QT Int : 390 ms P-R-T Axes : 054 032 066 degrees QTc Int : 429 ms Poor data quality, interpretation may be adversely affected Normal sinus rhythm Normal ECG When compared with ECG of 06-JAN-2020 23:47, Previous ECG has undetermined rhythm, needs review Confirmed by Valentin Gibbs ([id number]) on 03/30/2020 11:45:57 AM Referred By: REFERRED SELF Confirmed By:Seven Gibbs
--- NOTE | 2020-03-30 19:30 | Hospitalist Progress Note ---
Date of Service March 30, 2020 Assessment & Plan (1) Altered mental status: per Dr. Birmingham's notes: ASSESSMENT AND PLAN: This is a 74-year-old female who presents with cerebral palsy and intellectual disability, mostly wheelchair bound, chronic indwelling Alvarado catheter with recurrent UTIs, presents with lethargy and confusion and found to have a urinary tract infection. 1. Most likely Encephalopathy fro UTI. From baseline she is mostly nonverbal. She has pseudomonas infection in the recent past, UA is positive, - seems to be improving ff up cultures continue Zosyn IV - Covid negative CXR no PNA 2. History of seizure disorder. Continue her home medications of Lamictal, Keppra and carbamazepine. 3. Hypothyroidism. Continue Synthroid. 4. Chronic diastolic congestive heart failure, holding the Lasix - no signs of overt overload 5. History of constipation, stool softeners. 6. Severe intellectual disability and cerebral palsy. 7. Deep venous thrombosis prophylaxis, sequential compression devices for now. 8. Disposition: Closely monitor in med/tele. Expect discharge back to personal long term when stable. Code status, as per the caregivers does not know about code status, but as per last admission - full code. Admission and Anticipated Discharge Date Admission Date: March 30, 2020 Subjective ff up for possible UTI seen sitting up in bed, not in distress, alert tries to respond by saying no, also makes sounds, shakes her head denies pain, nausea, shortness of breath, cough no signs of pain/discomfort no other signs or symptoms Review of Systems Review of Systems: All systems reviewed & are unremarkable except as noted in Subjective Physical Exam Physical Exam: General- not in distress, breathing with no effort or accessory muscle use Eyes- anicteric Neck- no JVD Lungs- clear breath sounds bilaterally, no rales/wheezes Heart- normal rate, regular rhythm; no murmurs Abdomen- normal bowel sounds, nondistended, soft, nontender Extremities- no pretibial edema, no calf tenderness Neuro- alert, non verbal, no gross focal neurologic deficits Skin- warm & dry Results & Data Results & Data ([facility]) Vital Signs (Past 12 Hours) Vital Signs Temp Pulse Pulse Resp BP Pulse Ox 03/30/20 18:22 78 03/30/20 15:00 37.0 C 78 18 123/76 98 03/30/20 11:00 36.6 C 78 18 118/75 99 Laboratory Results Laboratory Results - last 24 hr 03/29/20 03/29/20 03/29/20 20:22 21:13 21:13 WBC 5.68 RBC 3.82 L Hgb 11.2 L Hct 34.4 L MCV 90.1 MCH 29.3 MCHC 32.6 RDW Std Deviation 42.6 RDW Coeff of Db 12.9 Plt Count 366 MPV 9.2 Immature Gran % (Auto) 0.4 Neut % (Auto) 42.3 Lymph % (Auto) 34.7 [place] % (Auto) 16.2 Eos % (Auto) 6.0 Baso % (Auto) 0.4 Neut # (Auto) 2.41 Lymph # (Auto) 1.97 [place] # (Auto) 0.92 H Eos # (Auto) 0.34 Baso # (Auto) 0.02 Immature Gran # (Auto) 0.02 PT 10.7 INR 1.0 APTT 27.1 PTT Ratio 1.0 Sodium Potassium Chloride Carbon Dioxide Anion Gap BUN Creatinine Est Cr Clr Drug Dosing Est GFR ( Amer) Est GFR (Non-Af Amer) BUN/Creatinine Ratio Glucose Lactate Calcium Magnesium Total Bilirubin AST ALT Alkaline Phosphatase Total Protein Albumin Globulin Albumin/Globulin Ratio Urine Color Yellow Urine Appearance Cloudy A Urine pH 5.5 Ur Specific [place] 1.012 Urine Protein 1+ H Urine Glucose (UA) Negative Urine Ketones Negative Urine Blood 1+ H Urine Nitrite Negative Urine Bilirubin Negative Urine Urobilinogen Negative Ur Leukocyte Esterase 3+ H Urine WBC (Auto) >30 H Urine RBC (Auto) 5-10 H U Hyaline Cast (Auto) 10-30 H U Epithel Cells (Auto) >30 H Urine Bacteria (Auto) 1+ H Urine Yeast Present A COVID-19 Eval Order SARS-CoV-2, RNA, NAAT 03/29/20 03/29/20 03/30/20 21:13 21:13 06:12 WBC 5.11 RBC 3.59 L Hgb 10.3 L Hct 32.3 L MCV 90.0 MCH 28.7 MCHC 31.9 L RDW Std Deviation 42.3 RDW Coeff of Db 13.0 Plt Count 364 MPV 8.9 Immature Gran % (Auto) 0.4 Neut % (Auto) 40.0 Lymph % (Auto) 37.2 [place] % (Auto) 14.7 Eos % (Auto) 6.5 Baso % (Auto) 1.2 Neut # (Auto) 2.05 Lymph # (Auto) 1.90 [place] # (Auto) 0.75 H Eos # (Auto) 0.33 Baso # (Auto) 0.06 Immature Gran # (Auto) 0.02 PT INR APTT PTT Ratio Sodium 133 L Potassium 3.5 Chloride 100 Carbon Dioxide 27 Anion Gap 6.0 BUN 17 Creatinine 0.99 Est Cr Clr Drug Dosing Not Reportable Est GFR ( Amer) 65.1 Est GFR (Non-Af Amer) 56.1 BUN/Creatinine Ratio 16.8 Glucose 105 H Lactate 1.1 Calcium 8.9 Magnesium 1.9 Total Bilirubin 0.3 AST 12 L ALT 21 Alkaline Phosphatase 104 Total Protein 7.4 Albumin 3.0 L Globulin 4.4 H Albumin/Globulin Ratio 0.7 L Urine Color Urine Appearance Urine pH Ur Specific [place] Urine Protein Urine Glucose (UA) Urine Ketones Urine Blood Urine Nitrite Urine Bilirubin Urine Urobilinogen Ur Leukocyte Esterase Urine WBC (Auto) Urine RBC (Auto) U Hyaline Cast (Auto) U Epithel Cells (Auto) Urine Bacteria (Auto) Urine Yeast COVID-19 Eval Order SARS-CoV-2, RNA, NAAT 03/30/20 03/30/20 03/30/20 06:12 09:49 09:49 WBC RBC Hgb Hct MCV MCH MCHC RDW Std Deviation RDW Coeff of Db Plt Count MPV Immature Gran % (Auto) Neut % (Auto) Lymph % (Auto) [place] % (Auto) Eos % (Auto) Baso % (Auto) Neut # (Auto) Lymph # (Auto) [place] # (Auto) Eos # (Auto) Baso # (Auto) Immature Gran # (Auto) PT INR APTT PTT Ratio Sodium 135 L Potassium 3.1 L Chloride 104 Carbon Dioxide 25 Anion Gap 6.0 BUN 13 Creatinine 0.61 D Est Cr Clr Drug Dosing 78.7 Est GFR ( Amer) 103.5 Est GFR (Non-Af Amer) 89.3 BUN/Creatinine Ratio 20.4 H Glucose 90 Lactate Calcium 8.1 L Magnesium 1.8 Total Bilirubin AST ALT Alkaline Phosphatase Total Protein Albumin Globulin Albumin/Globulin Ratio Urine Color Urine Appearance Urine pH Ur Specific [place] Urine Protein Urine Glucose (UA) Urine Ketones Urine Blood Urine Nitrite Urine Bilirubin Urine Urobilinogen Ur Leukocyte Esterase Urine WBC (Auto) Urine RBC (Auto) U Hyaline Cast (Auto) U Epithel Cells (Auto) Urine Bacteria (Auto) Urine Yeast COVID-19 Eval Order Covid19 [facility] SARS-CoV-2, RNA, NAAT NEGATIVE (1) Altered mental status Altered mental status type: unspecified Qualified Code(s): R41.82 - Altered mental status, unspecified
[2020-03-31] MEDS: SODIUM CHLORIDE 0.9% 1000ML 1,000 ML IV SCH ×2 (05:15→17:49)
[2020-03-31] MEDS: PIPERACILLIN/TAZOBACTAM 3.375 GM in DEXTROSE 5% 100 ML IV SCH ×3 (05:30→20:57)
[2020-03-31] MEDS: LEVOTHYROXINE SODIUM 100 MCG TABLET PO SCH (05:31)
[2020-03-31] MEDS: ACETAMINOPHEN 325 MG TAB PO PRN ×2 (06:31→20:58)
[2020-03-31] MEDS: MULTIVITAMIN TAB PO SCH (08:34)
[2020-03-31] MEDS: ASPIRIN 81 MG CHEW PO SCH (08:35)
[2020-03-31] MEDS: CHOLECALCIFEROL 1,000 UNITS 25 MCG TAB PO SCH (08:35)
[2020-03-31] MEDS: lamoTRIgine 100 MG TAB PO SCH ×2 (08:35→20:56)
[2020-03-31] MEDS: lamoTRIgine 25 MG TAB PO SCH ×2 (08:36→20:57)
[2020-03-31] MEDS: levETIRAcetam 250 MG TAB PO SCH ×2 (08:36→20:56)
[2020-03-31 13:31] LABS: Basophils # (auto) 0.03 K/uL (0-0.2); Basophils % (auto) 0.6 %; Eosinophils # (auto) 0.21 K/uL (0-0.5); Eosinophils % (auto) 4.1 %; Hematocrit (blood only) 32.7 % (37-47); Hemoglobin 10.8 g/dL (12.0-16.0); Immature Granulocytes # (auto) 0.01 K/uL (0.00-0.02); Immature Granulocytes % (auto) 0.2 %; Lymphocytes # (auto) 1.49 K/uL (1.2-3.4); Lymphocytes % (auto) 29.2 %; Mean Corpuscular Hemoglobin 29.7 pg (25-34); Mean Corpuscular Volume 89.8 fL (80-100); Mean Platelet Volume 9.1 fL (7.4-10.4); Monocytes # (auto) 0.86 K/uL (0.11-0.59); Monocytes % (auto) 16.8 %; Neutrophils # (auto) 2.51 K/uL (1.4-6.5); Neutrophils % (auto) 49.1 %; Platelet Count 359 K/uL (130-400); RDW Coefficient of Variation 12.9 % (11.5-14.5); RDW Standard Deviation 42.3 fL (36.4-46.3); Red Blood Count 3.64 M/uL (4.2-5.4); White Blood Count 5.11 K/uL (4.8-10.8)
[2020-03-31 13:57] LABS: BUN Creatinine Ratio 13.3 (10-20); Creatinine Clr Calc Pharmacy 86.4 ml/min; Est GFR (African American) 106.5; Est GFR (Non-African American) 91.9; Potassium 3.3 mmol/L (3.5-5.1)
[2020-03-31 14:45] LABS: Cdiff Antigen Positive; Cdiff Toxin A+B Negative Cdiff Toxin (Negative)
--- NOTE | 2020-03-31 20:36 | Hospitalist Progress Note ---
Date of Service March 31, 2020 Assessment & Plan (1) Altered mental status: per Dr. Birmingham's notes: ASSESSMENT AND PLAN: This is a 74-year-old female who presents with cerebral palsy and intellectual disability, mostly wheelchair bound, chronic indwelling Alvarado catheter with recurrent UTIs, presents with lethargy and confusion and found to have a urinary tract infection. 1. Most likely Encephalopathy from UTI. From baseline she is mostly nonverbal. She has pseudomonas infection in the recent past, UA is positive, -T-max 38, no leukocytosis Urine culture: With collection recommended Repeat urine culture: Pending continue Zosyn IV - Covid negative CXR no PNA 2. History of seizure disorder. Continue her home medications of Lamictal, Keppra and carbamazepine. 3. Hypothyroidism. Continue Synthroid. 4. Chronic diastolic congestive heart failure, holding the Lasix - no signs of overt overload 5. History of constipation, stool softeners. 6. Severe intellectual disability and cerebral palsy. 7. Deep venous thrombosis prophylaxis, sequential compression devices for now. 8. Disposition: Closely monitor in med/tele. Expect discharge back to personal residential when stable. Code status, as per the caregivers does not know about code status, but as per last admission - full code. Admission and Anticipated Discharge Date Admission Date: March 30, 2020 Subjective Follow-up for fever, lethargy, possible UTI Seen resting in bed, sleeping but easily awakened Not in distress Breathing with no accessory muscle use No cough noted Nonverbal, but tries to push examiner's hands away, comes anxious during exam, patient reassured No other signs or symptoms noted Review of Systems Review of Systems: Unobtainable due to cognitive status Physical Exam Physical Exam: General-awake, not in distress, breathing with no effort or accessory muscle use Eyes- anicteric Neck- no JVD Lungs- clear breath sounds bilaterally, no rales/wheezes Heart- normal rate, regular rhythm; no murmurs Abdomen- normal bowel sounds, nondistended, soft, nontender Extremities- no pretibial edema, no calf tenderness Neuro- alert, nonverbal, no new gross focal neurologic deficits Skin- warm & dry Results & Data Results & Data ([facility]) Vital Signs (Past 12 Hours) Vital Signs Temp Pulse Pulse Resp BP Pulse Ox 03/31/20 19:39 37.8 C H 85 20 96 03/31/20 16:00 37.4 C 80 20 153/73 H 94 03/31/20 15:52 64 03/31/20 11:00 36.8 C 70 18 108/70 97 Laboratory Results Laboratory Results - last 24 hr 03/31/20 03/31/20 03/31/20 12:30 13:17 13:17 WBC 5.11 RBC 3.64 L Hgb 10.8 L Hct 32.7 L MCV 89.8 MCH 29.7 MCHC 33.0 RDW Std Deviation 42.3 RDW Coeff of Db 12.9 Plt Count 359 MPV 9.1 Immature Gran % (Auto) 0.2 Neut % (Auto) 49.1 Lymph % (Auto) 29.2 [place] % (Auto) 16.8 Eos % (Auto) 4.1 Baso % (Auto) 0.6 Neut # (Auto) 2.51 Lymph # (Auto) 1.49 [place] # (Auto) 0.86 H Eos # (Auto) 0.21 Baso # (Auto) 0.03 Immature Gran # (Auto) 0.01 Sodium 138 Potassium 3.3 L Chloride 108 H Carbon Dioxide 23 Anion Gap 7.0 BUN 7 D Creatinine 0.56 L Est Cr Clr Drug Dosing 86.4 Est GFR ( Amer) 106.5 Est GFR (Non-Af Amer) 91.9 BUN/Creatinine Ratio 13.3 Glucose 97 Calcium 9.0 Stl C. diff Tox B Gene Positive Cdiff Gene H Stl C.difficile Tox A&B Negative Cdiff Toxin (1) Altered mental status Altered mental status type: unspecified Qualified Code(s): R41.82 - Altered mental status, unspecified
[2020-03-31] MEDS ORDERED: POTASSIUM CHLORIDE 20 MEQ TABCR PO STA (20:47)
[2020-03-31] MEDS ORDERED: IOVERSOL 100ml IV ONE (20:51)
[2020-03-31] MEDS: DAPTOmycin 350 MG in SYRINGE 0 ML IV SCH (21:16)
[2020-04-01] MEDS: PIPERACILLIN/TAZOBACTAM 3.375 GM in DEXTROSE 5% 100 ML IV SCH ×3 (04:43→21:57)
[2020-04-01] MEDS: LEVOTHYROXINE SODIUM 100 MCG TABLET PO SCH (05:43)
[2020-04-01 07:16] LABS: Basophils # (auto) 0.05 K/uL (0-0.2); Basophils % (auto) 0.9 %; Eosinophils # (auto) 0.31 K/uL (0-0.5); Eosinophils % (auto) 5.6 %; Hematocrit (blood only) 32.3 % (37-47); Hemoglobin 10.6 g/dL (12.0-16.0); Immature Granulocytes # (auto) 0.02 K/uL (0.00-0.02); Immature Granulocytes % (auto) 0.4 %; Lymphocytes # (auto) 1.96 K/uL (1.2-3.4); Lymphocytes % (auto) 35.3 %; Mean Corpuscular Hemoglobin 29.5 pg (25-34); Mean Corpuscular Hgb Conc 32.8 g/dL (32-36); Mean Platelet Volume 9.2 fL (7.4-10.4); Monocytes # (auto) 0.82 K/uL (0.11-0.59); Monocytes % (auto) 14.8 %; Neutrophils # (auto) 2.39 K/uL (1.4-6.5); Platelet Count 357 K/uL (130-400); RDW Standard Deviation 42.7 fL (36.4-46.3); Red Blood Count 3.59 M/uL (4.2-5.4); White Blood Count 5.55 K/uL (4.8-10.8)
[2020-04-01 07:43] LABS: BUN Creatinine Ratio 9.9 (10-20); Calcium 8.2 mg/dl (8.5-10.1); Creatinine Clr Calc Pharmacy 105.6 ml/min; Est GFR (African American) 112.8; Est GFR (Non-African American) 97.3; Potassium 3.2 mmol/L (3.5-5.1)
[2020-04-01] MEDS: CHOLECALCIFEROL 1,000 UNITS 25 MCG TAB PO SCH (07:56)
[2020-04-01] MEDS: SODIUM CHLORIDE 0.9% 1000ML 1,000 ML IV SCH (07:56)
[2020-04-01] MEDS: ASPIRIN 81 MG CHEW PO SCH (07:56)
[2020-04-01] MEDS: MULTIVITAMIN TAB PO SCH (07:57)
[2020-04-01] MEDS: lamoTRIgine 25 MG TAB PO SCH ×2 (08:00→20:31)
[2020-04-01] MEDS: lamoTRIgine 100 MG TAB PO SCH ×2 (08:00→20:30)
[2020-04-01] MEDS: levETIRAcetam 250 MG TAB PO SCH ×2 (08:00→20:30)
--- NOTE | 2020-04-01 08:34 | CT Scan Report ---
CT SCAN OF THE ABDOMEN AND PELVIS WITH IV CONTRAST CLINICAL HISTORY: Fever. COMPARISON STUDY: Abdominal CT dated 01/07/2020. TECHNIQUE: Following the IV administration of 93 cc of Optiray 320, CT scan of the abdomen and pelvi s is performed from the lung bases to the proximal femora. Images are reviewed in the axial, sagittal , and coronal planes. IV contrast was administered without complication. A dose lowering technique wa s utilized adhering to the principles of ALARA. The examination is degraded by motion artifact, as we ll as by streak artifact from the arms which could not be elevated above the abdomen. CT DOSE: 712.53 mGy.cm FINDINGS: Lung bases: The heart is normal in size and without pericardial effusion. The coronary arteries and m itral annulus are densely calcified. Changes of chronic interstitial lung disease are present at both lung bases. There is no evidence of superimposed airspace consolidation or pleural effusion. There i s a tiny hiatal hernia. Liver: The contrast-enhanced liver is normal in size, contour, and attenuation. There is no intrahepa tic biliary ductal dilatation. The hepatic veins and portal veins are patent. Gallbladder: Unremarkable. Spleen: The spleen is normal in size and attenuation. Capsular calcifications are again noted. Pancreas: Moderately atrophic and grossly unremarkable. Adrenal glands: Unremarkable. Kidneys: The contrast enhanced kidneys demonstrate mild cortical atrophy and are without hydronephros is. The kidneys enhance symmetrically. Abdominal vasculature: The abdominal aorta is normal in course and caliber noting mild to moderate at herosclerotic calcification. Bowel: There is marked wall thickening of the rectosigmoid colon with associated mucosal hyperemia an d surrounding inflammation. There is marked gaseous distention of the proximal sigmoid colon. This me asures up to 11.5 cm in diameter. The right colon is normal in caliber noting mild fecal retention. T he small bowel loops are normal in caliber. The appendix is well-visualized and normal. Peritoneum: There is no intraperitoneal free air or abdominal ascites. Lymphadenopathy: None. Pelvic viscera: The bladder is decompressed and a Alvarado catheter. Numerous large bladder calculi are similar to prior studies and measure up to 3 cm. The uterus is surgically absent. No adnexal lesion i s seen. Skeletal structures: The skeletal structures are osteopenic. There are chronic compression deformitie s of T11, T12, and L2. Moderate lumbosacral spondylosis is observed. No lytic or blastic lesions are seen. A right hip arthroplasty is in place. There are healed bilateral pubic ring fractures. There is also chronic posttraumatic deformity of the sacrum. There are healed right-sided rib fractures. IMPRESSION: 1. Streak and motion compromised examination. 2. There is marked wall thickening of the rectosigmoid colon with associated mucosal hyperemia and amin rrounding inflammation. The appearance is consistent with a nonspecific proctocolitis. 3. This causes some degree of colonic obstruction, possibly due to mucosal edema or stricture. Althou gh no mass lesion is identified, this would be impossible to exclude by CT. The proximal sigmoid colo n is markedly distended measure up to 11 cm. This is similar in appearance to prior examinations and this is likely chronic. The right colon is normal in caliber, as are the small bowel loops. 4. No intraperitoneal free air or abdominal ascites is identified. 5. Changes of chronic interstitial lung disease are again seen at the lung bases. 6. Large bladder calculi are similar to previous. 7. Additional findings as above. ACT 112: Negative or not required by law. Electronically signed by: Sam Roman M.D. 04/01/2020 8:32 AM
[2020-04-01] MEDS: POTASSIUM CHLORIDE PWD 20 MEQ PACK PO SCH ×2 (13:10→20:31)
[2020-04-01] MEDS: NSS + 20MEQ KCL 20 MEQ/1,000 ML BAG IV SCH (13:14)
--- NOTE | 2020-04-01 14:31 | Gastrointestinal Consultation ---
Date of Consultation April 01, 2020 Assessment & Plan (1) Proctitis: Pt is a 74 y/o female seen for proctitis, sigmoid colon distension (chronic) seen on CT scan. She has chronic constipation, suspect has stercoral ulceration. - Linzess 290mcg daily. Add Miralax 17g BID and additionally Bisacodyl 10mg daily for goal daily soft bowel movements - Discussed with pt's next of Kins - brother (Barry) and sister in law (Sylvie) who wish to not pursue any medical intervention that's not absolutely necessary or would prolong suffering, including colonoscopy evaluation. They also wish for pt's PCP to have input for this upon pt's DC. GI will sign off; recall prn. Will not plan for outpt colonoscopy at this time Supervising Physician Co-Signing Physician Notes I performed a history and physical examination of the patient today, including specifically on physical exam - soft abdomen. I have discussed the patient's management with the advanced practitioner. Please refer to the nurse practitioner's note for the documented findings and plan of care. Increase Laxatives to treat constipation. Family declined endoscopy. Recall GI if needed. History of Present Illness Reason for Consultation: Proctitis Requesting Physician: Dr. Brendon Alejandre Attending Physician: Dr. Jem Baker History of Present Illness Pt is a 74 y/o female currently admitted for UTI. Yesterday per primary hospita list's exam, was noted to be grimacing, and guarding when abd was palpated. CT abd/pelvis w contrast was obtained which showed marked wall thickening of the rectosigmoid colon with associated mucosal hyperemia and surrounding inflammation consistent w nonspecific proctocolitis. Proximal sigmoid colon distended 11cm, similar to prior exams liekly chronic. R colon and small bowel loops normal. No intraperitoneal free air or ascites noted. Pt w hx of chronic constipatoin, currently on Linzess. Last colonoscopy 2008 showed melanosis otherwise normal. Cologuard 03/20 negative. Allergies Allergy/AdvReac Type Severity Reaction Status Date / Time No Known Allergies Allergy Unknown Verified 03/10/20 08:04 Home Medications Home Medications Medication Instructions Recorded Confirmed Type multivitamin [Multiple Vitamins] 1 tab PO QAM #0 02/27/11 03/10/20 History carbamazepine [Carbatrol] 300 mg PO BID #0 06/29/12 03/10/20 History [place] Protectant Ointment 1 applic TOPICAL BID #0 11/11/14 03/10/20 History Prolia 60 mg SUBCUT UD #0 07/17/17 03/10/20 History aspirin 81 mg PO QAM #0 07/17/17 03/10/20 History levothyroxine 100 mcg PO QAM #0 07/17/17 03/10/20 History methenamine hippurate 1 g PO BID #0 07/17/17 03/10/20 History Linzess 290 mcg PO QAM 06/11/18 03/10/20 History lamotrigine [Lamictal] 300 mg PO BID 06/11/18 03/10/20 History polyethylene glycol 3350 [Miralax] 17 g PO BID 06/11/18 03/10/20 History fluticasone propionate 2 spray INTRANASAL QAM 10/11/18 03/10/20 History lamotrigine 50 mg PO BID 10/11/18 03/10/20 History levetiracetam 750 mg PO BID 10/11/18 03/10/20 History cholecalciferol (vitamin D3) 50 2,000 units PO QAM 08/20/19 03/10/20 History mcg (2,000 unit) capsule furosemide 20 mg tablet 20 mg PO DAILY PRN tab 12/22/19 03/10/20 History Robitussin Cough-Chest Mariano DM 10 ml PO Q4H PRN 01/07/20 03/07/20 History Triple Antibiotic 1 applic TOPICAL DIRECTED PRN 01/07/20 03/07/20 History acetaminophen [Tylenol] 650 mg PO Q4H PRN MDD max 3 gms/24h 01/07/20 03/10/20 History guaifenesin [Mucinex] 600 mg PO Q12H PRN 01/07/20 03/07/20 History hydrocortisone [Proctozone-HC] 1 applic MS BID PRN 01/07/20 03/07/20 History furosemide 40 mg PO BID 03/07/20 03/10/20 History potassium chloride 10 meq PO QAM 03/07/20 03/10/20 History Patient History Medical History Cerebral palsy Chronic indwelling Alvarado catheter Chronic obstructive pulmonary disease oxygen daily Colon abnormality Alvarado catheter in place History of DVT (deep vein thrombosis) "2002- right lower extremity, completed Coumadin therapy" On 01/30/15 10:26 Francine Linda wrote "2002- right lower extremity" History of recurrent UTI (urinary tract infection) Hypothyroidism Intellectual disability Nonverbal On home oxygen therapy 2L N/C at all times Proctitis Pulmonary fibrosis Seizure disorder last was "a couple months ago", "staring type seizures", denies grand mal--on keppra, lamictal and carbamazepine ---follows with Dr. Stoddard Surgical History History of cystoscopy History of total right hip arthroplasty Family History Mother Hypertension Father Heart disease Grandmother Cancer Other Family history unknown Social History Smoking Status: Never smoker Second Hand Exposure: No (unknown); Hx Alcohol Use: No Hx Substance Use: No Preferred Language: [place] Island[place] Communication Ability: Unable Health Information Assistant Required: No Beliefs That Will Affect Care: None marital status: Single Current Living Situation: Other Current Living Situation Comment: [facility] How many Children do You have: 0 Feels Safe at Home: Declines to Answer Assistive Devices: Oxygen - Continuous Review of Systems Review of Systems: Unobtainable due to cognitive status Physical Exam Constitutional: cooperative and comfortable Eyes: PERRL, conjunctivae normal, anicteric sclerae ENMT: external ear and nose normal, oropharynx normal Respiratory: Auscultation: + diminished lung sounds Cardiovascular: RRR, no murmur, no edema Gastrointestinal (Abdomen): normal bowel sounds, soft, nontender, no hepatosplenomegaly Skin: no rashes, warm and dry no jaundice Psychiatric: Orientation: alert Pt w intellectual disabilities, responds to name called and answers no/yes Lymphatic: no lymphedema Results & [facility] ([facility]) Vital Signs (Past 12 Hours) Vital Signs Temp Pulse Pulse Resp BP Pulse Ox 04/01/20 12:00 37.3 C 75 18 145/79 H 90 04/01/20 08:00 37.0 C 85 73 18 165/82 H 94 04/01/20 05:00 36.2 C L 73 20 168/76 H 94
[2020-04-01] MEDS: ACETAMINOPHEN 325 MG TAB PO PRN (20:29)
[2020-04-01] MEDS: POLYETHYLENE (MIRALAX) 17 GM PACK PO SCH ×2 (20:30→22:03)
[2020-04-01] MEDS ORDERED: ACETAMINOPHEN 1,000 MG/100 ML VIAL IV PRN (21:51)
[2020-04-01] MEDS: DAPTOmycin 350 MG in SYRINGE 0 ML IV SCH (21:58)
--- NOTE | 2020-04-01 23:26 | Hospitalist Progress Note ---
Date of Service Delayed entry Date of service noted below April 01, 2020 Assessment & Plan (1) Altered mental status: per Dr. Birmingham's notes: ASSESSMENT AND PLAN: This is a 74-year-old female who presents with cerebral palsy and intellectual disability, mostly wheelchair bound, chronic indwelling Alvarado catheter with recurrent UTIs, presents with lethargy and confusion and found to have a urinary tract infection. 1. Fever, metabolic encephalopathy from underlying infection Likely from proctocolitis -Still having low-grade fever, but mental status seems to be improving CT abdomen and pelvis revealing proctocolitis with possible stricture -GI consulted No plans for colonoscopy at this time Linzess ordered -Continue Zosyn IV -Urine culture: Negative Blood cultures: Negative - Covid negative CXR no PNA 2. History of seizure disorder. Continue her home medications of Lamictal, Keppra and carbamazepine. 3. Hypothyroidism. Continue Synthroid. 4. Chronic diastolic congestive heart failure, holding the Lasix - no signs of overt overload 5. History of constipation, stool softeners. 6. Severe intellectual disability and cerebral palsy. 7. Deep venous thrombosis prophylaxis, heparin subcutaneous 8. Disposition: Expect discharge back to personal retirement when stable. Code status, as per the caregivers does not know about code status, but as per last admission - full code. Admission and Anticipated Discharge Date Admission Date: March 30, 2020 Subjective Follow-up for fever, lethargy Seen resting in bed, not in distress, nonverbal Awake, tries to mumble words When examined, the patient seems to be irritable, moving examiner's hands away Some guarding with grimacing when palpation of abdomen is performed No other issues per obstetrician gynecologist of Systems Review of Systems: All systems reviewed & are unremarkable except as noted in Subjective Physical Exam Physical Exam: General-alert, not in distress, breathing with no effort or accessory muscle use Eyes- anicteric Neck- no JVD Lungs- clear breath sounds bilaterally, no crackles or wheezing Heart- normal rate, regular rhythm; no murmurs Abdomen- normal bowel sounds, nondistended, soft, mild tenderness in all quadrants Extremities- no pretibial edema, no calf tenderness Neuro- alert, nonverbal, no new gross focal neurologic deficits Skin- warm & dry Results & Data Results & Data ([facility]) Vital Signs (Past 12 Hours) Vital Signs Temp Pulse Pulse Resp BP Pulse Ox 04/01/20 20:00 37.9 C H 100 H 20 156/80 H 94 04/01/20 16:00 37.6 C H 77 20 156/77 H 04/01/20 15:47 90 04/01/20 12:00 37.3 C 75 18 145/79 H 90 Laboratory Results Noted and reviewed (1) Altered mental status Altered mental status type: unspecified Qualified Code(s): R41.82 - Altered mental status, unspecified
[2020-04-02] MEDS: NSS + 20MEQ KCL 20 MEQ/1,000 ML BAG IV SCH ×2 (03:21→17:57)
[2020-04-02] MEDS: MICONAZOLE NITRATE POWDER 43 GM EXT SCH ×2 (05:31→22:13)
[2020-04-02] MEDS: PIPERACILLIN/TAZOBACTAM 3.375 GM in DEXTROSE 5% 100 ML IV SCH ×3 (05:34→22:45)
[2020-04-02] MEDS: LEVOTHYROXINE SODIUM 100 MCG TABLET PO SCH (05:34)
[2020-04-02 06:56] LABS: Basophils # (auto) 0.03 K/uL (0-0.2); Basophils % (auto) 0.4 %; Eosinophils # (auto) 0.32 K/uL (0-0.5); Eosinophils % (auto) 4.3 %; Hematocrit (blood only) 33.8 % (37-47); Immature Granulocytes # (auto) 0.05 K/uL (0.00-0.02); Immature Granulocytes % (auto) 0.7 %; Lymphocytes # (auto) 1.63 K/uL (1.2-3.4); Lymphocytes % (auto) 21.7 %; Mean Corpuscular Hemoglobin 28.9 pg (25-34); Mean Corpuscular Hgb Conc 32.5 g/dL (32-36); Mean Corpuscular Volume 88.9 fL (80-100); Mean Platelet Volume 9.3 fL (7.4-10.4); Monocytes % (auto) 13.3 %; Neutrophils # (auto) 4.49 K/uL (1.4-6.5); Neutrophils % (auto) 59.6 %; Platelet Count 361 K/uL (130-400); White Blood Count 7.52 K/uL (4.8-10.8)
[2020-04-02 07:14] LABS: BUN Creatinine Ratio 9.6 (10-20); Creatinine Clr Calc Pharmacy 124.4 ml/min; Est GFR (African American) 119.9; Est GFR (Non-African American) 103.5; Potassium 2.9 mmol/L (3.5-5.1)
[2020-04-02] MEDS ORDERED: POTASSIUM CHLORIDE 20 MEQ TABCR PO ONE (08:15)
[2020-04-02] MEDS: MULTIVITAMIN TAB PO SCH (08:41)
[2020-04-02] MEDS: lamoTRIgine 25 MG TAB PO SCH ×2 (08:42→21:58)
[2020-04-02] MEDS: levETIRAcetam 250 MG TAB PO SCH (08:42)
[2020-04-02] MEDS: lamoTRIgine 100 MG TAB PO SCH ×2 (08:43→21:58)
[2020-04-02] MEDS: ASPIRIN 81 MG CHEW PO SCH (08:43)
[2020-04-02] MEDS: CHOLECALCIFEROL 1,000 UNITS 25 MCG TAB PO SCH (08:44)
[2020-04-02] MEDS ORDERED: POTASSIUM CHLORIDE PWD 20 MEQ PACK PO SCH (09:00)
--- NOTE | 2020-04-02 18:35 | Hospitalist Progress Note ---
Date of Service April 02, 2020 Assessment & Plan (1) Altered mental status: per Dr. Birmingham's notes: ASSESSMENT AND PLAN: This is a 74-year-old female who presents with cerebral palsy and intellectual disability, mostly wheelchair bound, chronic indwelling Alvarado catheter with recurrent UTIs, presents with lethargy and confusion and found to have a urinary tract infection. 1. Fever, metabolic encephalopathy from underlying infection Likely from proctocolitis -Still having low-grade fever, no alert, awake CT abdomen and pelvis revealing proctocolitis with possible stricture -GI consulted No plans for colonoscopy at this time Linzess ordered -Continue Zosyn IV Continue to monitor closely -Urine culture: Negative Blood cultures: Negative - Covid negative CXR no PNA 2. History of seizure disorder. Continue her home medications of Lamictal, Keppra and carbamazepine. 3. Hypothyroidism. Continue Synthroid. 4. Chronic diastolic congestive heart failure -Resumed Lasix - no signs of overt overload 5. History of constipation, stool softeners. 6. Severe intellectual disability and cerebral palsy. 7. Deep venous thrombosis prophylaxis, heparin subcutaneous 8. Disposition: Expect discharge back to personal residential when stable. Code status, as per the caregivers does not know about code status, but as per last admission - full code. Admission and Anticipated Discharge Date Admission Date: March 30, 2020 Subjective Follow-up for proctocolitis, fever and lethargy Seen resting in bed, awake and alert, active Tries to say few words Not in distress, not in pain Having some diarrhea per icu staff nurse No other signs or symptoms Review of Systems Review of Systems: Unobtainable due to cognitive status Physical Exam Physical Exam: General-awake, alert, nonverbal, breathing with no effort or accessory muscle use Eyes- anicteric Neck- no JVD Lungs- clear breath sounds, crackles or wheezing bilaterally Heart- normal rate, regular rhythm; no murmurs Abdomen- normal bowel sounds, nondistended, soft, nontender Extremities- no pretibial edema, no calf tenderness Neuro- alert, nonverbal, no new gross focal neurologic deficits Skin- warm & dry Results & Data Results & Data ([facility]) Vital Signs (Past 12 Hours) Vital Signs Temp Pulse Pulse Resp BP Pulse Ox 04/02/20 16:00 98 H 04/02/20 15:46 36.5 C 92 H 18 135/79 92 04/02/20 12:55 37.8 C H 97 H 20 131/83 97 04/02/20 08:00 89 Laboratory Results Laboratory Results - last 24 hr 04/02/20 04/02/20 04/02/20 06:24 06:24 06:24 WBC 7.52 RBC 3.80 L Hgb 11.0 L Hct 33.8 L MCV 88.9 MCH 28.9 MCHC 32.5 RDW Std Deviation 42.0 RDW Coeff of Db 13.0 Plt Count 361 MPV 9.3 Immature Gran % (Auto) 0.7 Neut % (Auto) 59.6 Lymph % (Auto) 21.7 [place] % (Auto) 13.3 Eos % (Auto) 4.3 Baso % (Auto) 0.4 Neut # (Auto) 4.49 Lymph # (Auto) 1.63 [place] # (Auto) 1.00 H Eos # (Auto) 0.32 Baso # (Auto) 0.03 Immature Gran # (Auto) 0.05 H Sodium 140 Potassium 2.9 L Chloride 109 H Carbon Dioxide 23 Anion Gap 8.0 BUN 4 L Creatinine 0.39 L Est Cr Clr Drug Dosing 124.4 Est GFR ( Amer) 119.9 Est GFR (Non-Af Amer) 103.5 BUN/Creatinine Ratio 9.6 L Glucose 86 Calcium 8.0 L Carbamazepine 10.0 (1) Altered mental status Altered mental status type: unspecified Qualified Code(s): R41.82 - Altered mental status, unspecified
[2020-04-02] MEDS ORDERED: POTASSIUM CHLORIDE 20 MEQ TABCR PO SCH (21:00)
[2020-04-02] MEDS: FUROSEMIDE 40 MG TAB PO SCH (21:57)
[2020-04-02] MEDS: HEPARIN SOD 5,000 UNIT/0.5 ML VIAL SQ SCH (21:57)
[2020-04-02] MEDS: levETIRAcetam ORAL SOLN 100MG/ML PO SCH (21:59)
[2020-04-02] MEDS: POTASSIUM CHLORIDE PWD 20 MEQ PACK PO SCH (21:59)
[2020-04-02] MEDS: DAPTOmycin 350 MG in SYRINGE 0 ML IV SCH (22:43)
[2020-04-03] MEDS: ACETAMINOPHEN 325 MG TAB PO PRN (02:02)
[2020-04-03] MEDS: PIPERACILLIN/TAZOBACTAM 3.375 GM in DEXTROSE 5% 100 ML IV SCH ×3 (05:57→20:25)
[2020-04-03] MEDS: LEVOTHYROXINE SODIUM 100 MCG TABLET PO SCH (05:58)
[2020-04-03 07:35] LABS: Basophils # (auto) 0.02 K/uL (0-0.2); Basophils % (auto) 0.2 %; Eosinophils # (auto) 0.39 K/uL (0-0.5); Hematocrit (blood only) 32.1 % (37-47); Hemoglobin 10.3 g/dL (12.0-16.0); Immature Granulocytes # (auto) 0.07 K/uL (0.00-0.02); Immature Granulocytes % (auto) 0.7 %; Lymphocytes # (auto) 2.35 K/uL (1.2-3.4); Lymphocytes % (auto) 24.3 %; Mean Corpuscular Hemoglobin 28.9 pg (25-34); Mean Corpuscular Hgb Conc 32.1 g/dL (32-36); Mean Corpuscular Volume 90.2 fL (80-100); Mean Platelet Volume 8.9 fL (7.4-10.4); Monocytes # (auto) 1.24 K/uL (0.11-0.59); Monocytes % (auto) 12.8 %; Neutrophils # (auto) 5.62 K/uL (1.4-6.5); Platelet Count 345 K/uL (130-400); RDW Coefficient of Variation 13.3 % (11.5-14.5); RDW Standard Deviation 43.8 fL (36.4-46.3); Red Blood Count 3.56 M/uL (4.2-5.4); White Blood Count 9.69 K/uL (4.8-10.8)
[2020-04-03 08:23] LABS: BUN Creatinine Ratio 6.2 (10-20); Calcium 8.1 mg/dl (8.5-10.1); Creatinine Clr Calc Pharmacy 80.1 ml/min; Est GFR (African American) 104.1; Est GFR (Non-African American) 89.8; Potassium 3.2 mmol/L (3.5-5.1)
[2020-04-03] MEDS: levETIRAcetam ORAL SOLN 100MG/ML PO SCH ×2 (10:20→20:31)
[2020-04-03] MEDS: MULTIVITAMIN TAB PO SCH (10:21)
[2020-04-03] MEDS: ASPIRIN 81 MG CHEW PO SCH (10:22)
[2020-04-03] MEDS: FUROSEMIDE 40 MG TAB PO SCH (10:22)
[2020-04-03] MEDS: lamoTRIgine 100 MG TAB PO SCH ×2 (10:22→20:32)
[2020-04-03] MEDS: HEPARIN SOD 5,000 UNIT/0.5 ML VIAL SQ SCH ×2 (10:22→20:31)
[2020-04-03] MEDS: POTASSIUM CHLORIDE PWD 20 MEQ PACK PO SCH ×2 (10:23→20:31)
[2020-04-03] MEDS: lamoTRIgine 25 MG TAB PO SCH ×2 (10:23→20:32)
[2020-04-03] MEDS: CHOLECALCIFEROL 1,000 UNITS 25 MCG TAB PO SCH (10:24)
[2020-04-03] MEDS: MICONAZOLE NITRATE POWDER 43 GM EXT SCH ×2 (10:31→20:31)
[2020-04-03] MEDS: DAPTOmycin 350 MG in SYRINGE 0 ML IV SCH (20:21)
--- NOTE | 2020-04-03 21:06 | Hospitalist Progress Note ---
Date of Service delayed entry date of service noted below April 03, 2020 Assessment & Plan (1) Altered mental status: per Dr. Birmingham's notes: ASSESSMENT AND PLAN: This is a 74-year-old female who presents with cerebral palsy and intellectual disability, mostly wheelchair bound, chronic indwelling Alvarado catheter with recurrent UTIs, presents with lethargy and confusion and found to have a urinary tract infection. 1. Fever, metabolic encephalopathy from underlying infection Likely from proctocolitis - now afebrile since the morning CT abdomen and pelvis revealing proctocolitis with possible stricture -GI consulted No plans for colonoscopy at this time Nisazess ordered - Continue Zosyn IV--> change to PO Augmentin on discharge Continue to monitor closely - Urine culture: Negative Blood cultures: Negative - Covid negative CXR no PNA 2. History of seizure disorder. Continue her home medications of Lamictal, Keppra and carbamazepine. 3. Hypothyroidism. Continue Synthroid. 4. Chronic diastolic congestive heart failure - Resumed Lasix - no signs of overt overload 5. History of constipation, stool softeners. 6. Severe intellectual disability and cerebral palsy. 7. Deep venous thrombosis prophylaxis -- heparin subcutaneous 8. Disposition: Expect discharge back to personal skilled nursing 04/04/20 on oral antibiotics Code status, as per the caregivers does not know about code status, but as per last admission - full code. Admission and Anticipated Discharge Date Admission Date: March 30, 2020 Subjective ff up for proctocolitis seen sitting up in bed, more awake, alert, bright tries to answer in words states she feels "alright" denies abdominal pain tolerating diet as per RN no diarrhea no other signs/symptoms Review of Systems Review of Systems: All systems reviewed & are unremarkable except as noted in Subjective Physical Exam Physical Exam: General- alert, not in distress, speaks in sentences with no effort or accessory muscle use Eyes- anicteric Neck- no JVD Lungs- clear BS BL no rales no wheezing Heart- normal rate, regular rhythm; no murmurs Abdomen- normal bowel sounds, nondistended, soft, nontender Extremities- no pretibial edema, no calf tenderness Neuro- alert, no new o gross focal neurologic deficits Skin- warm & dry Results & Data Results & Data ([facility]) Vital Signs (Past 12 Hours) Vital Signs Temp Pulse Pulse Resp BP Pulse Ox 04/03/20 19:00 36.4 C L 98 H 20 144/86 H 96 04/03/20 16:00 88 04/03/20 12:00 37.3 C 77 18 150/84 H 97 Laboratory Results noted and reviewed (1) Altered mental status Altered mental status type: unspecified Qualified Code(s): R41.82 - Altered mental status, unspecified
[2020-04-04] MEDS: PIPERACILLIN/TAZOBACTAM 3.375 GM in DEXTROSE 5% 100 ML IV SCH ×3 (06:01→20:01)
[2020-04-04] MEDS: LEVOTHYROXINE SODIUM 100 MCG TABLET PO SCH (06:02)
[2020-04-04] MEDS: POTASSIUM CHLORIDE PWD 20 MEQ PACK PO SCH ×2 (07:52→20:05)
[2020-04-04] MEDS: ASPIRIN 81 MG CHEW PO SCH (07:53)
[2020-04-04] MEDS: MULTIVITAMIN TAB PO SCH (07:53)
[2020-04-04] MEDS: CHOLECALCIFEROL 1,000 UNITS 25 MCG TAB PO SCH (07:53)
[2020-04-04] MEDS: MICONAZOLE NITRATE POWDER 43 GM EXT SCH ×2 (07:53→20:04)
[2020-04-04] MEDS: lamoTRIgine 100 MG TAB PO SCH ×2 (07:54→20:05)
[2020-04-04] MEDS: FUROSEMIDE 40 MG TAB PO SCH (07:54)
[2020-04-04] MEDS: levETIRAcetam ORAL SOLN 100MG/ML PO SCH ×2 (07:54→20:05)
[2020-04-04] MEDS: lamoTRIgine 25 MG TAB PO SCH ×2 (07:55→20:05)
[2020-04-04 08:07] LABS: Basophils # (auto) 0.02 K/uL (0-0.2); Basophils % (auto) 0.2 %; Eosinophils # (auto) 0.26 K/uL (0-0.5); Hemoglobin 11.3 g/dL (12.0-16.0); Immature Granulocytes # (auto) 0.07 K/uL (0.00-0.02); Immature Granulocytes % (auto) 0.8 %; Lymphocytes # (auto) 1.87 K/uL (1.2-3.4); Lymphocytes % (auto) 21.6 %; Mean Corpuscular Hemoglobin 29.4 pg (25-34); Mean Corpuscular Hgb Conc 33.2 g/dL (32-36); Mean Corpuscular Volume 88.5 fL (80-100); Mean Platelet Volume 9.2 fL (7.4-10.4); Monocytes # (auto) 0.83 K/uL (0.11-0.59); Monocytes % (auto) 9.6 %; Neutrophils # (auto) 5.59 K/uL (1.4-6.5); Neutrophils % (auto) 64.8 %; Platelet Count 371 K/uL (130-400); RDW Coefficient of Variation 13.3 % (11.5-14.5); RDW Standard Deviation 42.9 fL (36.4-46.3); Red Blood Count 3.84 M/uL (4.2-5.4); White Blood Count 8.64 K/uL (4.8-10.8)
[2020-04-04 08:34] LABS: BUN Creatinine Ratio 5.7 (10-20); Calcium 8.2 mg/dl (8.5-10.1); Creatinine Clr Calc Pharmacy 100.4 ml/min; Est GFR (Non-African American) 96.6; Potassium 2.9 mmol/L (3.5-5.1)
[2020-04-04] MEDS: HEPARIN SOD 5,000 UNIT/0.5 ML VIAL SQ SCH ×2 (09:39→20:04)
[2020-04-04] MEDS: DAPTOmycin 350 MG in SYRINGE 0 ML IV SCH (20:00)
--- NOTE | 2020-04-04 21:30 | Hospitalist Progress Note ---
Date of Service April 04, 2020 Assessment & Plan (1) Altered mental status: (1) Altered mental status: per Dr. Birmingham's notes: ASSESSMENT AND PLAN: This is a 74-year-old female who presents with cerebral palsy and intellectual disability, mostly wheelchair bound, chronic indwelling Alvarado catheter with recurrent UTIs, presents with lethargy and confusion and found to have a urinary tract infection. 1. Fever, metabolic encephalopathy from underlying infection Likely from proctocolitis - now afebrile since the morning CT abdomen and pelvis revealing proctocolitis with possible stricture -GI consulted No plans for colonoscopy at this time Linzess ordered - Continue Zosyn IV--> change to PO Augmentin on discharge Continue to monitor closely - Urine culture: Negative Blood cultures: Negative - Covid negative CXR no PNA - continues to improve 2. History of seizure disorder. Continue her home medications of Lamictal, Keppra and carbamazepine. 3. Hypothyroidism. Continue Synthroid. 4. Chronic diastolic congestive heart failure - Resumed Lasix - no signs of overt overload 5. History of constipation, stool softeners. 6. Severe intellectual disability and cerebral palsy. 7. Deep venous thrombosis prophylaxis -- heparin subcutaneous 8. Disposition: Expect discharge back to personal group home 04/04/20 on oral antibiotics Code status, as per the caregivers does not know about code status, but as per last admission - full code. Admission and Anticipated Discharge Date Admission Date: March 30, 2020 Subjective ff up for fever, lethargy seen resting in bed, comfortable answers with some words alert, awake not in distress denies pain tolerating diet well per staff had 2 BMs no other symptoms Review of Systems Review of Systems: All systems reviewed & are unremarkable except as noted in Subjective Physical Exam Physical Exam: General- not in distress, breathing with no effort or accessory muscle use Eyes- anicteric Neck- no JVD Lungs- clear breath sounds bilaterally Heart- normal rate, regular rhythm; no murmurs Abdomen- normal bowel sounds, nondistended, soft, nontender Extremities- no pretibial edema, no calf tenderness Neuro- alert, no gross focal neurologic deficits Skin- warm & dry Results & Data Results & Data ([facility]) Vital Signs (Past 12 Hours) Vital Signs Temp Pulse Pulse Resp BP Pulse Ox 04/04/20 19:48 37.3 C 96 H 20 115/78 96 04/04/20 17:16 90 Laboratory Results Laboratory Results - last 24 hr 04/04/20 04/04/20 04/04/20 07:46 07:46 Unknown WBC 8.64 RBC 3.84 L Hgb 11.3 L Hct 34.0 L MCV 88.5 MCH 29.4 MCHC 33.2 RDW Std Deviation 42.9 RDW Coeff of Db 13.3 Plt Count 371 MPV 9.2 Immature Gran % (Auto) 0.8 Neut % (Auto) 64.8 Lymph % (Auto) 21.6 [place] % (Auto) 9.6 Eos % (Auto) 3.0 Baso % (Auto) 0.2 Neut # (Auto) 5.59 Lymph # (Auto) 1.87 [place] # (Auto) 0.83 H Eos # (Auto) 0.26 Baso # (Auto) 0.02 Immature Gran # (Auto) 0.07 H Sodium 138 Potassium 2.9 L Chloride 107 Carbon Dioxide 24 Anion Gap 8.0 BUN 3 L Creatinine 0.48 L Est Cr Clr Drug Dosing 100.4 Est GFR ( Amer) 112.0 Est GFR (Non-Af Amer) 96.6 BUN/Creatinine Ratio 5.7 L Glucose 87 Calcium 8.2 L COVID-19 Eval [facility] SARS-CoV-2, RNA, NAAT 04/04/20 Unknown WBC RBC Hgb Hct MCV MCH MCHC RDW Std Deviation RDW Coeff of Db Plt Count MPV Immature Gran % (Auto) Neut % (Auto) Lymph % (Auto) [place] % (Auto) Eos % (Auto) Baso % (Auto) Neut # (Auto) Lymph # (Auto) [place] # (Auto) Eos # (Auto) Baso # (Auto) Immature Gran # (Auto) Sodium Potassium Chloride Carbon Dioxide Anion Gap BUN Creatinine Est Cr Clr Drug Dosing Est GFR ( Amer) Est GFR (Non-Af Amer) BUN/Creatinine Ratio Glucose Calcium COVID-19 Eval Order SARS-CoV-2, RNA, NAAT NEGATIVE (1) Altered mental status Altered mental status type: unspecified Qualified Code(s): R41.82 - Altered mental status, unspecified
[2020-04-04] MEDS: ACETAMINOPHEN 325 MG TAB PO PRN (23:44)
[2020-04-05] MEDS: PIPERACILLIN/TAZOBACTAM 3.375 GM in DEXTROSE 5% 100 ML IV SCH ×2 (05:51→12:35)
[2020-04-05] MEDS ORDERED: POTASSIUM CHLORIDE 40 MEQ in D5W AND NSS 1,000 ML IV ONE (06:23)
[2020-04-05] MEDS ORDERED: POTASSIUM CHLORIDE 40 MEQ in SODIUM CHLORIDE 0.9% 1000ML 1,000 ML IV ONE (07:00)
[2020-04-05 07:05] LABS: Basophils # (auto) 0.03 K/uL (0-0.2); Basophils % (auto) 0.5 %; Eosinophils # (auto) 0.43 K/uL (0-0.5); Eosinophils % (auto) 7.1 %; Hematocrit (blood only) 31.4 % (37-47); Hemoglobin 10.3 g/dL (12.0-16.0); Immature Granulocytes # (auto) 0.05 K/uL (0.00-0.02); Immature Granulocytes % (auto) 0.8 %; Lymphocytes # (auto) 2.41 K/uL (1.2-3.4); Mean Corpuscular Hemoglobin 29.3 pg (25-34); Mean Corpuscular Hgb Conc 32.8 g/dL (32-36); Mean Corpuscular Volume 89.2 fL (80-100); Monocytes # (auto) 0.57 K/uL (0.11-0.59); Monocytes % (auto) 9.5 %; Neutrophils # (auto) 2.54 K/uL (1.4-6.5); Neutrophils % (auto) 42.1 %; Platelet Count 316 K/uL (130-400); RDW Coefficient of Variation 13.6 % (11.5-14.5); RDW Standard Deviation 43.8 fL (36.4-46.3); Red Blood Count 3.52 M/uL (4.2-5.4); White Blood Count 6.03 K/uL (4.8-10.8)
[2020-04-05 07:24] LABS: Albumin Level 2.2 gm/dl (3.4-5.0); BUN Creatinine Ratio 8.4 (10-20); Calcium 7.8 mg/dl (8.5-10.1); Creatinine Clr Calc Pharmacy 93.7 ml/min; Est GFR (African American) 109.1; Est GFR (Non-African American) 94.1; Potassium 3.3 mmol/L (3.5-5.1)
[2020-04-05] MEDS: LEVOTHYROXINE SODIUM 100 MCG TABLET PO SCH (07:29)
[2020-04-05 07:35] LABS: Albumin Globulin Ratio 0.6 (0.9-2); Bilirubin,Total 0.3 mg/dl (0.2-1); Globulin 3.7 gm/dl (2.5-4.0); Magnesium 1.7 mg/dl (1.8-2.4); Thyroid Stimulating Hormone 0.501 uIu/ml (0.300-4.500); Total Protein 5.9 gm/dl (6.4-8.2)
--- NOTE | 2020-04-05 09:37 | Gastroenterology Progress Note ---
Date of Service April 05, 2020 Assessment & Plan (1) Proctitis: Pt is a 74 y/o female seen for proctitis, sigmoid colon distension (chronic) seen on CT scan moving bowels on Linzess and Miralax regimen - GI asked to evaluate as ammonia level was ordered due to AMS yesterday. There is no evidence of cirrhosis on recent CT imaging which just suggests hepatic steatosis and hepatomegaly. She has nonspecific elevated ammonia - Ammonia level elevation not likely related to mental status change as she is not cirrhotic - Given her history of chronic distention would not recommend prison lactulose use but could trial for 1 day - Linzess 290mcg daily - Miralax 17g BID - Can use Bisacodyl 10mg daily for goal daily soft bowel movements - Will sign off.Thank you for allowing us to participate in the care of this patient. Please call with any acute changes, questions or concerns. Please see addendum below with additional recommendation from my supervising physician. Admission and Anticipated Discharge Date Admission Date: March 30, 2020 Supervising Physician Co-Signing Physician Notes I have seen and examined the patient and discussed the management with APOLLO Montgomery. 74 yo fm with a history of cerebral palsy, contracted in terms of her physical ability, and now gi consulted for elevated ammonia. PE - contracted female in nad, HEENT - perrla, CV - rr no mrg, Abd - soft nt nd +bs Labs reviewed Agree with further plan of care as per Elida's assessment. Subjective Asked to re-evaluate for altered mental status This AM offers no complaints. Not resistant to exam No appreciate pain with palpation Review of Systems Review of Systems: Unobtainable due to cognitive status Physical Exam Constitutional: + ill appearing (chronically ill appearing); no acute distress Neck: trachea midline Respiratory: normal respiratory effort Cardiovascular: Rate/Rhythm: regular rate and regular rhythm Gastrointestinal (Abdomen): Percussion/Palpation: abdomen soft; abdomen nontender, no guarding and abdomen not rigid Skin: no rashes, warm and dry Results & Data ([facility]) Vital Signs (Past 12 Hours) Vital Signs Temp Pulse Pulse Resp BP BP Pulse Ox 04/05/20 07:42 37.0 C 60 17 93/51 L 100 04/05/20 06:20 37.1 C 87 16 99/65 L 99 04/05/20 04:40 37.2 C 87 18 101/62 97 04/04/20 23:45 36.8 C 99 H 20 149/82 H 95 04/04/20 23:37 93 H Laboratory Results 04/05/20 04/05/20 04/05/20 Range/Units 06:56 06:56 06:56 WBC (4.8-10.8) K/uL RBC (4.2-5.4) M/uL Hgb (12.0-16.0) g/dL Hct (37-47) % MCV (80-100) fL MCH (25-34) pg MCHC (32-36) g/dL RDW Std Deviation (36.4-46.3) fL RDW Coeff of Db (11.5-14.5) % Plt Count (130-400) K/uL MPV (7.4-10.4) fL Immature Gran % (Auto) % Neut % (Auto) % Lymph % (Auto) % [place] % (Auto) % Eos % (Auto) % Baso % (Auto) % Neut # (Auto) (1.4-6.5) K/uL Lymph # (Auto) (1.2-3.4) K/uL [place] # (Auto) (0.11-0.59) K/uL Eos # (Auto) (0-0.5) K/uL Baso # (Auto) (0-0.2) K/uL Immature Gran # (Auto) (0.00-0.02) K/uL Sodium (136-145) mmol/L Potassium (3.5-5.1) mmol/L Chloride (98-107) mmol/L Carbon Dioxide (21-32) mmol/L Anion Gap (3-11) BUN (7-18) mg/dl Creatinine (0.6-1.2) mg/dl Est Cr Clr Drug Dosing ml/min Est GFR ( Amer) Est GFR (Non-Af Amer) BUN/Creatinine Ratio (10-20) Glucose (70-99) mg/dl POC Glucose (70-99) mg/dl Calcium (8.5-10.1) mg/dl Magnesium (1.8-2.4) mg/dl Total Bilirubin (0.2-1) mg/dl AST (15-37) U/L ALT (12-78) U/L Alkaline Phosphatase (45-117) U/L Ammonia 63.0 H (11-32) umol/L Total Protein (6.4-8.2) gm/dl Albumin (3.4-5.0) gm/dl Globulin (2.5-4.0) gm/dl Albumin/Globulin Ratio (0.9-2) TSH (0.300-4.500) uIu/ml Carbamazepine 10.4 (4-12) mcg/ml Lamotrigine Pending Levetiracetam Pending COVID-19 Eval Order SARS-CoV-2, RNA, NAAT (NEGATIVE) 04/05/20 04/05/20 04/05/20 Range/Units 06:56 06:56 06:23 WBC 6.03 (4.8-10.8) K/uL RBC 3.52 L (4.2-5.4) M/uL Hgb 10.3 L (12.0-16.0) g/dL Hct 31.4 L (37-47) % MCV 89.2 (80-100) fL MCH 29.3 (25-34) pg MCHC 32.8 (32-36) g/dL RDW Std Deviation 43.8 (36.4-46.3) fL RDW Coeff of Db 13.6 (11.5-14.5) % Plt Count 316 (130-400) K/uL MPV 9.0 (7.4-10.4) fL Immature Gran % (Auto) 0.8 % Neut % (Auto) 42.1 % Lymph % (Auto) 40.0 % [place] % (Auto) 9.5 % Eos % (Auto) 7.1 % Baso % (Auto) 0.5 % Neut # (Auto) 2.54 (1.4-6.5) K/uL Lymph # (Auto) 2.41 (1.2-3.4) K/uL [place] # (Auto) 0.57 (0.11-0.59) K/uL Eos # (Auto) 0.43 (0-0.5) K/uL Baso # (Auto) 0.03 (0-0.2) K/uL Immature Gran # (Auto) 0.05 H (0.00-0.02) K/uL Sodium 140 (136-145) mmol/L Potassium 3.3 L (3.5-5.1) mmol/L Chloride 112 H (98-107) mmol/L Carbon Dioxide 23 (21-32) mmol/L Anion Gap 5.0 (3-11) BUN 4 L (7-18) mg/dl Creatinine 0.52 L (0.6-1.2) mg/dl Est Cr Clr Drug Dosing 93.7 ml/min Est GFR ( Amer) 109.1 Est GFR (Non-Af Amer) 94.1 BUN/Creatinine Ratio 8.4 L (10-20) Glucose 88 (70-99) mg/dl POC Glucose 90 (70-99) mg/dl Calcium 7.8 L (8.5-10.1) mg/dl Magnesium 1.7 L (1.8-2.4) mg/dl Total Bilirubin 0.3 (0.2-1) mg/dl AST 14 L (15-37) U/L ALT 16 (12-78) U/L Alkaline Phosphatase 85 (45-117) U/L Ammonia (11-32) umol/L Total Protein 5.9 L (6.4-8.2) gm/dl Albumin 2.2 L (3.4-5.0) gm/dl Globulin 3.7 (2.5-4.0) gm/dl Albumin/Globulin Ratio 0.6 L (0.9-2) TSH 0.501 (0.300-4.500) uIu/ml Carbamazepine (4-12) mcg/ml Lamotrigine Levetiracetam COVID-19 Eval Order SARS-CoV-2, RNA, NAAT (NEGATIVE) 04/04/20 04/04/20 Range/Units Unknown Unknown WBC (4.8-10.8) K/uL RBC (4.2-5.4) M/uL Hgb (12.0-16.0) g/dL Hct (37-47) % MCV (80-100) fL MCH (25-34) pg MCHC (32-36) g/dL RDW Std Deviation (36.4-46.3) fL RDW Coeff of Db (11.5-14.5) % Plt Count (130-400) K/uL MPV (7.4-10.4) fL Immature Gran % (Auto) % Neut % (Auto) % Lymph % (Auto) % [place] % (Auto) % Eos % (Auto) % Baso % (Auto) % Neut # (Auto) (1.4-6.5) K/uL Lymph # (Auto) (1.2-3.4) K/uL [place] # (Auto) (0.11-0.59) K/uL Eos # (Auto) (0-0.5) K/uL Baso # (Auto) (0-0.2) K/uL Immature Gran # (Auto) (0.00-0.02) K/uL Sodium (136-145) mmol/L Potassium (3.5-5.1) mmol/L Chloride (98-107) mmol/L Carbon Dioxide (21-32) mmol/L Anion Gap (3-11) BUN (7-18) mg/dl Creatinine (0.6-1.2) mg/dl Est Cr Clr Drug Dosing ml/min Est GFR ( Amer) Est GFR (Non-Af Amer) BUN/Creatinine Ratio (10-20) Glucose (70-99) mg/dl POC Glucose (70-99) mg/dl Calcium (8.5-10.1) mg/dl Magnesium (1.8-2.4) mg/dl Total Bilirubin (0.2-1) mg/dl AST (15-37) U/L ALT (12-78) U/L Alkaline Phosphatase (45-117) U/L Ammonia (11-32) umol/L Total Protein (6.4-8.2) gm/dl Albumin (3.4-5.0) gm/dl Globulin (2.5-4.0) gm/dl Albumin/Globulin Ratio (0.9-2) TSH (0.300-4.500) uIu/ml Carbamazepine (4-12) mcg/ml Lamotrigine Levetiracetam COVID-19 Eval [facility] SARS-CoV-2, RNA, NAAT NEGATIVE (NEGATIVE)
[2020-04-05] MEDS: POTASSIUM CHLORIDE PWD 20 MEQ PACK PO SCH (10:03)
[2020-04-05] MEDS: MULTIVITAMIN TAB PO SCH (10:06)
[2020-04-05] MEDS: lamoTRIgine 25 MG TAB PO SCH (10:07)
[2020-04-05] MEDS: lamoTRIgine 100 MG TAB PO SCH (10:07)
[2020-04-05] MEDS: CHOLECALCIFEROL 1,000 UNITS 25 MCG TAB PO SCH (10:08)
[2020-04-05] MEDS: MICONAZOLE NITRATE POWDER 43 GM EXT SCH (10:09)
[2020-04-05] MEDS: levETIRAcetam ORAL SOLN 100MG/ML PO SCH (10:10)
[2020-04-05] MEDS: HEPARIN SOD 5,000 UNIT/0.5 ML VIAL SQ SCH (10:10)
[2020-04-05] MEDS: ASPIRIN 81 MG CHEW PO SCH (11:01)
--- NOTE | 2020-04-05 13:23 | Hospitalist Progress Note ---
Date of Service April 05, 2020 Assessment & Plan (1) Altered mental status: (1) Altered mental status: per Dr. Birmingham's notes: ASSESSMENT AND PLAN: This is a 74-year-old female who presents with cerebral palsy and intellectual disability, mostly wheelchair bound, chronic indwelling Alvarado catheter with recurrent UTIs, presents with lethargy and confusion and found to have a urinary tract infection. 1. Fever, metabolic encephalopathy from underlying infection Likely from proctocolitis - now afebrile x2 days CT abdomen and pelvis revealing proctocolitis with possible stricture -GI consulted No plans for colonoscopy at this time Linzess ordered -Given Zosyn IV--> change to PO Augmentin on discharge x3 more days to complete 10-day course of antibiotics - Urine culture: Negative Blood cultures: Negative - Covid negative CXR no PNA - continues to improve 2. History of seizure disorder. Continue her home medications of Lamictal, Keppra and carbamazepine. 3. Hypothyroidism. Continue Synthroid. 4. Chronic diastolic congestive heart failure -Continue Lasix - no signs of overt overload 5. History of constipation, stool softeners. 6. Severe intellectual disability and cerebral palsy. 7. Deep venous thrombosis prophylaxis -- heparin subcutaneous was given 8. Disposition: Discharge today to personal skilled nursing Follow-up with PCP in 1 week Follow-up with senior patrol agent as scheduled Admission and Anticipated Discharge Date Admission Date: March 30, 2020 Subjective fever, lethargy, proctocolitisFollow-up for last night patient was very drowsy CT head no acute process Ammonia mildly elevated Per RY Fowler, patient is more alert this morning Had breakfast, had morning care by [facility] On exam, patient seen sleeping but easily awakened, remains alert, tries to answer with some words Also moves extremities equally Denies pain No other symptoms Review of Systems Review of Systems: Unobtainable due to cognitive status Physical Exam Physical Exam: General-alert, breathing with no effort or accessory muscle use Eyes- anicteric Neck- no JVD Lungs- clear breath sounds, no crackles, no wheezing bilaterally Heart- normal rate, regular rhythm; no murmurs Abdomen- normal bowel sounds, nondistended, soft, nontender Extremities- no pretibial edema, no calf tenderness Neuro- alert, no new focal neurologic deficits Skin- warm & dry Results & Data Results & Data ([facility]) Vital Signs (Past 12 Hours) Vital Signs Temp Pulse Pulse Resp BP BP Pulse Ox 04/05/20 12:41 36.7 C 78 17 120/67 93 04/05/20 10:43 90 04/05/20 07:42 37.0 C 60 17 93/51 L 100 04/05/20 06:20 37.1 C 87 16 99/65 L 99 04/05/20 04:40 37.2 C 87 18 101/62 97 Laboratory Results Laboratory Results - last 24 hr 04/05/20 04/05/20 04/05/20 06:23 06:56 06:56 WBC 6.03 RBC 3.52 L Hgb 10.3 L Hct 31.4 L MCV 89.2 MCH 29.3 MCHC 32.8 RDW Std Deviation 43.8 RDW Coeff of Db 13.6 Plt Count 316 MPV 9.0 Immature Gran % (Auto) 0.8 Neut % (Auto) 42.1 Lymph % (Auto) 40.0 [place] % (Auto) 9.5 Eos % (Auto) 7.1 Baso % (Auto) 0.5 Neut # (Auto) 2.54 Lymph # (Auto) 2.41 [place] # (Auto) 0.57 Eos # (Auto) 0.43 Baso # (Auto) 0.03 Immature Gran # (Auto) 0.05 H Sodium 140 Potassium 3.3 L Chloride 112 H Carbon Dioxide 23 Anion Gap 5.0 BUN 4 L Creatinine 0.52 L Est Cr Clr Drug Dosing 93.7 Est GFR ( Amer) 109.1 Est GFR (Non-Af Amer) 94.1 BUN/Creatinine Ratio 8.4 L Glucose 88 POC Glucose 90 Calcium 7.8 L Magnesium 1.7 L Total Bilirubin 0.3 AST 14 L ALT 16 Alkaline Phosphatase 85 Ammonia Total Protein 5.9 L Albumin 2.2 L Globulin 3.7 Albumin/Globulin Ratio 0.6 L TSH 0.501 Carbamazepine Lamotrigine Levetiracetam 04/05/20 04/05/20 04/05/20 06:56 06:56 06:56 WBC RBC Hgb Hct MCV MCH MCHC RDW Std Deviation RDW Coeff of Db Plt Count MPV Immature Gran % (Auto) Neut % (Auto) Lymph % (Auto) [place] % (Auto) Eos % (Auto) Baso % (Auto) Neut # (Auto) Lymph # (Auto) [place] # (Auto) Eos # (Auto) Baso # (Auto) Immature Gran # (Auto) Sodium Potassium Chloride Carbon Dioxide Anion Gap BUN Creatinine Est Cr Clr Drug Dosing Est GFR ( Amer) Est GFR (Non-Af Amer) BUN/Creatinine Ratio Glucose POC Glucose Calcium Magnesium Total Bilirubin AST ALT Alkaline Phosphatase Ammonia 63.0 H Total Protein Albumin Globulin Albumin/Globulin Ratio TSH Carbamazepine 10.4 Lamotrigine Pending Levetiracetam Pending (1) Altered mental status Altered mental status type: unspecified Qualified Code(s): R41.82 - Altered mental status, unspecified
--- NOTE | 2020-04-05 13:38 | Discharge Summary ---
Date of Service April 05, 2020 Admission HPI Per Admitting Provider HISTORY OF PRESENT ILLNESS: This is a 74-year-old female with past medical history significant for cerebral palsy ,intellectual impairment, chronic diastolic congestive heart failure, EF of 65-70% on echo in 2020, interstitial lung disease, history of seizure disorder, hypothyroidism, urinary retention with chronic indwelling Alvarado catheter, recurrent UTIs and on chronic methenamine suppression treatment, history of DVT as per records, history of gastroesophageal reflux disease, history of constipation, history of hypertension. The patient is from [facility]. The patient is generally nonverbal, caregiver in the room. The patient had today fever whole day and she is also seem to be somewhat lethargic than usual At baseline, she is mostly nonverbal, very rarely she speaks few words. She is wheelchair bound. Otherwise, she generally eats good, but today she was not eating and she was brought in here and found to have UTI .Patient is currently, seems to be comfortable. Hemodynamics are stable. No leukocytosis. UA is positive.The patient when asked if she has any pain, she is says no. When asked how she is doing, she said okay. As per caregiver, she rarely speaks.There is no reports for nausea, vomiting. Her bowels are always loose . Does not know if she has any pain .Could not get any history from the patient. Admission Exam Per Admitting Provider GENERAL: The patient is of moderate build, not in acute distress. VITAL SIGNS: Temperature 37, pulse 65, respiratory rate 22, blood pressure 120/48, oxygen 100% on 2 liters. HEENT: Pupils equal, round, reactive to light. NECK: No neck masses seen. CARDIOVASCULAR: S1, S2 heard, regular rate and rhythm, no murmur, no gallop. RESPIRATORY SYSTEM: Normal AP diameter. No accessory muscle use. No wheezing, no crackles. ABDOMEN: Soft, bowel sounds present. No distention. CENTRAL NERVOUS SYSTEM: The patient is mostly nonverbal, somewhat noncooperative with exam. Seems to move extremities. EXTREMITIES: No edema, no erythema. Principal Diagnosis Fever secondary to proctocolitis Discharge Exam General-alert, breathing with no effort or accessory muscle use Eyes- anicteric Neck- no JVD Lungs- clear breath sounds, no crackles, no wheezing bilaterally Heart- normal rate, regular rhythm; no murmurs Abdomen- normal bowel sounds, nondistended, soft, nontender Extremities- no pretibial edema, no calf tenderness Neuro- alert, no new focal neurologic deficits Skin- warm & dry Discharge Data Allergies Allergy/AdvReac Type Severity Reaction Status Date / Time No Known Allergies Allergy Unknown Verified 03/10/20 08:04 Consultations 03/29/20 22:01 ED Decision to Admit Stat 03/30/20 02:03 Consult Case Management - Discharge Planning Routine 04/01/20 12:04 Consult Gastroenterology Routine Ordered Studies 03/31/20 21:11 CT abd pelvis IV con only Urgent COMPARISON STUDY: Abdominal CT dated 01/07/2020. TECHNIQUE: Following the IV administration of 93 cc of Optiray 320, CT scan of the abdomen and pelvis is performed from the lung bases to the proximal femora. Images are reviewed in the axial, sagittal, and coronal planes. IV contrast was administered without complication. A dose lowering technique was utilized adhe ring to the principles of ALARA. The examination is degraded by motion artifact, as well as by streak artifact from the arms which could not be elevated above the abdomen. CT DOSE: 712.53 mGy.cm FINDINGS: Lung bases: The heart is normal in size and without pericardial effusion. The coronary arteries and mitral annulus are densely calcified. Changes of chronic interstitial lung disease are present at both lung bases. There is no evidence of superimposed airspace consolidation or pleural effusion. There is a tiny hiatal hernia. Liver: The contrast-enhanced liver is normal in size, contour, and attenuation. There is no intrahepatic biliary ductal dilatation. The hepatic veins and portal veins are patent. Gallbladder: Unremarkable. Spleen: The spleen is normal in size and attenuation. Capsular calcifications are again noted. Pancreas: Moderately atrophic and grossly unremarkable. Adrenal glands: Unremarkable. Kidneys: The contrast enhanced kidneys demonstrate mild cortical atrophy and are without hydronephrosis. The kidneys enhance symmetrically. Abdominal vasculature: The abdominal aorta is normal in course and caliber noting mild to moderate atherosclerotic calcification. Bowel: There is marked wall thickening of the rectosigmoid colon with associated mucosal hyperemia and surrounding inflammation. There is marked gaseous distention of the proximal sigmoid colon. This measures up to 11.5 cm in diameter. The right colon is normal in caliber noting mild fecal retention. The small bowel loops are normal in caliber. The appendix is well-visualized and normal. Peritoneum: There is no intraperitoneal free air or abdominal ascites. Lymphadenopathy: None. Pelvic viscera: The bladder is decompressed and a Alvarado catheter. Numerous large bladder calculi are similar to prior studies and measure up to 3 cm. The uterus is surgically absent. No adnexal lesion is seen. Skeletal structures: The skeletal structures are osteopenic. There are chronic compression deformities of T11, T12, and L2. Moderate lumbosacral spondylosis is observed. No lytic or blastic lesions are seen. A right hip arthroplasty is in place. There are healed bilateral pubic ring fractures. There is also chronic posttraumatic deformity of the sacrum. There are healed right-sided rib fractures. IMPRESSION: 1. Streak and motion compromised examination. 2. There is marked wall thickening of the rectosigmoid colon with associated mucosal hyperemia and surrounding inflammation. The appearance is consistent with a nonspecific proctocolitis. 3. This causes some degree of colonic obstruction, possibly due to mucosal edema or stricture. Although no mass lesion is identified, this would be impossible to exclude by CT. The proximal sigmoid colon is markedly distended measure up to 11 cm. This is similar in appearance to prior examinations and this is likely chronic. The right colon is normal in caliber, as are the small bowel loops. 4. No intraperitoneal free air or abdominal ascites is identified. 5. Changes of chronic interstitial lung disease are again seen at the lung bases. 6. Large bladder calculi are similar to previous. 7. Additional findings as above. Hospital Course (1) Altered mental status: (1) Altered mental status: per Dr. Birmingham's notes: ASSESSMENT AND PLAN: This is a 74-year-old female who presents with cerebral palsy and intellectual disability, mostly wheelchair bound, chronic indwelling Alvarado catheter with recurrent UTIs, presents with lethargy and confusion and found to have a urinary tract infection. 1. Fever, metabolic encephalopathy from underlying infection Likely from proctocolitis CT abdomen and pelvis revealing proctocolitis with possible stricture -GI consulted No plans for colonoscopy at this time Tonny ordered -Given Zosyn IV--> change to PO Augmentin on discharge x3 more days to complete 10-day course of antibiotics - now afebrile x2 days other infectious work up unrevealing - Urine culture: Negative Blood cultures: Negative - Covid negative CXR no PNA - continues to improve 2. History of seizure disorder. Continue her home medications of Lamictal, Keppra and carbamazepine. 3. Hypothyroidism. Continue Synthroid. 4. Chronic diastolic congestive heart failure -Continue Lasix - no signs of overt overload 5. History of constipation, stool softeners. 6. Severe intellectual disability and cerebral palsy. 7. Deep venous thrombosis prophylaxis -- heparin subcutaneous was given 8. Disposition: Discharge today to [facility] [facility] Follow-up with PCP in 1 week Follow-up with hospitalist as scheduled Total Time Total Time Spent Total Time Spent (In Minutes): 40 minutes Discharge Plan Discharge Items Patient Disposition: Home - Self-Care Reason For Visit: LETHARGIC, FEVER Discharge Diagnosis: Fever secondary to proctocolitis Activity: Resume your previous activity Non-emergency contact: Primary Care Provider Call non-emergency contact if: you have any medication questions, your symptoms worsen, your pain is not controlled, your pain is worsening, your pain is unusual for you, your pain is concerning for you and you have a fever Follow-up/Referrals: Lora Carvalho DO [Primary Care Provider] - 04/07/20 11:20 am (Date & Time 04/07/2020 11:20 AM Provider Lora Carvalho DO Department [facility] ) Diet: Heart Healthy Addtl Attending Provider Instructions: New medication is Augmentin twice a day x3 more days for proctocolitis. Repeat potassium level in 2-3 days then monitor regularly. Please refer to accompanying hospital discharge summary for further details Pending Studies at Discharge: Yes Studies:: Repeat potassium level in 2-3 days, then monitor regularly. Stand-Alone Forms: My [facility] [employer], Smoking Cessation Medications and DC Order Prescriptions: New potassium chloride 20 mEq Packet 20 meq PO DAILY Qty: 30 RF: 0 amoxicillin-pot clavulanate [Augmentin] 875-125 mg tablet 1 tab PO Q12H Qty: 6 RF: 0 Continued multivitamin [Multiple Vitamins] Tablet 1 tab PO QAM Qty: 0 RF: 0 carbamazepine [Carbatrol] 300 mg Capsule, Er Multiphase 12 Hr 300 mg PO BID Qty: 0 RF: 0 Aloe [place] Protectant Ointment 43 % Ointment 1 applic TOPICAL BID Qty: 0 RF: 0 levothyroxine 100 mcg Tablet 100 mcg PO QAM Qty: 0 RF: 0 methenamine hippurate 1 gram Tablet 1 g PO BID Qty: 0 RF: 0 aspirin 81 mg Tablet,Chewable 81 mg PO QAM Qty: 0 RF: 0 Prolia 60 mg/mL Syringe 60 mg subcut UD Qty: 0 RF: 0 cholecalciferol (vitamin D3) 50 mcg (2,000 unit) capsule 2,000 units PO QAM RF: 0 lamotrigine [Lamictal] 150 mg Tablet 300 mg PO BID RF: 0 polyethylene glycol 3350 [Miralax] 17 gram Powder In Packet 17 g PO BID RF: 0 Linzess 290 mcg Capsule 290 mcg PO QAM RF: 0 fluticasone propionate 50 mcg/actuation [place],Suspension 2 spray INTRANASAL QAM RF: 0 levetiracetam 750 mg tablet 750 mg PO BID RF: 0 lamotrigine 100 mg tablet 50 mg PO BID RF: 0 furosemide 20 mg tablet 20 mg PO DAILY PRN (Reason: Weight Gain) RF: 0 hydrocortisone [Proctozone-HC] 2.5 % Cream With Perineal Applicator 1 applic UT BID PRN (Reason: Hemorrhoids) RF: 0 Robitussin Cough-Chest Mariano DM 5-100 mg/5 mL Liquid 10 ml PO Q4H PRN (Reason: cold/cough/congestion) RF: 0 acetaminophen [Tylenol] 325 mg Tablet 650 mg PO Q4H MDD max 3 gms/24h PRN (Reason: pain/fever) RF: 0 Triple Antibiotic 3.5mg-400 unit- 5,000 unit/gram Ointment 1 applic TOPICAL DIRECTED PRN (Reason: abrasions) RF: 0 guaifenesin [Mucinex] 600 mg Tablet Extended Release 12hr 600 mg PO Q12H PRN (Reason: Congestion) RF: 0 furosemide 40 mg Tablet 40 mg PO BID RF: 0 Discontinued potassium chloride 10 mEq Capsule, Extended Release 10 meq PO QAM RF: 0 Discharge Orders: Discharge Order (Routine); Ordered 04/05/20 Ordered By: Brendon Alejandre Admission Data Admit Date/Time: 03/30/20 00:55 Attending Provider: Brendon Alejandre Admit Provider: Cliff Birmingham Primary Care Provider: Lora Carvalho Other Providers: Cliff Birimngham ; [place] ; Jem Baker
[2020-04-08 14:06] LABS: Lamictal(Lamotrigine) 14.9 mcg/mL (4.0-18.0); Levetiracetam Keppra 30.1 mcg/mL (12.0-46.0)
== END 2020-04-05 15:32 | disposition home or self-care (01) | DRG 698 ==
LOC: ED 20:04 → 2W 03-30 00:55

== ENCOUNTER 2021-03-06 13:15 | Inpatient (IN) ==
[2021-03-06] MEDS ORDERED: SODIUM CHLORIDE 0.9% 1000ML 1,000 ML IV ONE ×2 (13:29→16:17)
--- NOTE | 2021-03-06 13:34 | Emergency Department Note ---
Impression & Plan Acute UTI, Ileus, Acute hypotension, Leukopenia ED Provider Note NAME: MAHESH LEON AGE: 75 SEX: F : 1945 ARRIVES VIA: Ambulance INFORMANT: Patient ED PROVIDER(S): Murray Evans DO CHIEF COMPLAINT: Weakness HPI: Patient is a 75 year old female who has a past medical history of COPD and a chronic indwelling Alvarado who [facility] the [facility] from [facility] as she has been less combative and has been not eating and drinking much. He denies any report of cough or congestion. Patient is able to state name and says that she is not having any pain in her belly or chest. She is chronically on 2 L nasal cannula. ROS: History is limited secondary to mentation PAST MEDICAL HISTORY:See Below PAST SURGICAL HISTORY:See Below FAMILY HISTORY:See Below SOCIAL HISTORY:See Below HOME MEDICATIONS:See Below ALLERGIES:See Below VITALS:See Below PHYSICAL EXAMINATION: GENERAL: Lying in bed, chronically ill-appearing, disheveled, warm to touch EYE EXAM: normal conjunctiva. PERRL and EOM's grossly intact. OROPHARYNX: no exudate, no erythema, lips, buccal mucosa, and tongue normal and mucous membranes are moist NECK: supple, no nuchal rigidity, no adenopathy, non-tender LUNGS: Clear to auscultation. Normal chest wall mechanics HEART: no murmurs, S1 normal and S2 normal ABDOMEN: abdomen soft, non-tender, normo-active bowel sounds, no masses, no rebound or guarding. : Alvarado in place with yellow urine UPPER EXTREMITIES: upper extremities are grossly normal. LOWER EXTREMITIES: No pitting edema. NEURO EXAM: Normal sensorium, cranial nerves II-XII grossly intact, normal speech, no gross weakness of arms, no gross weakness of legs. MEDICAL DECISION MAKING: Patient is a 75-year-old female who presents the ER for above-stated complaint. IV was established blood was obtained. Labs show mild leukopenia 4000. Mild anemia 11. INR was 1. BMP along with T's bilirubin unremarkable UA was 9 leuks whites is contaminant with bili cells. Covid negative. CT abdomen pelvis shows ileus. Patient was given IV fluids and IV antibiotics. She was updated bedside. Pressures did drop to the 80s but trended back up after fluids. She discussed with the hospitalist for admission. Patient remained on her chronic 2 L nasal cannula Triage Nursing notes reviewed. Limited review of prior medical records performed Vital Signs: reviewed and remarkable for HTN Differential diagnosis: Differential diagnosis includes etiologies such as sepsis, UTI, pneumonia, metabolic, electrolyte abnormalities, cardiac sources, intracerebral event, toxicologic, neurological, as well as others were entertained. ER treatment provided: See below Diagnostics interpreted by me: ECG: none Cardiac Monitoring: An order was placed for continuous cardiac monitoring. The monitor shows a rate of 70 with sinus rhythm. Laboratory studies: As stated above and show below. Imaging studies: CT abdomen pelvis shows ileus Consultation(s): Discussed with hospitalist for further evaluation Procedures: none Critical Care: None Past Med/Surg History Medical History (Updated 03/06/21 @ 19:48 by Murray Evans DO) Cerebral palsy Chronic indwelling Alvarado catheter Chronic obstructive pulmonary disease oxygen daily Colon abnormality Alvarado catheter in place History of DVT (deep vein thrombosis) "2002- right lower extremity, completed Coumadin therapy" On 01/30/15 10:26 Francine Mckeon wrote "2002- right lower extremity" History of recurrent UTI (urinary tract infection) Hypothyroidism Intellectual disability Nonverbal On home oxygen therapy 2L N/C at all times Proctitis Pulmonary fibrosis Seizure disorder last was "a couple months ago", "staring type seizures", denies grand mal--on keppra, lamictal and carbamazepine ---follows with Dr. Stoddard Surgical History History of cystoscopy History of total right hip arthroplasty Family History Mother Hypertension Father Heart disease Grandmother Cancer Other Family history unknown Social History Smoking Status: Unknown if ever smoked Second Hand Exposure: No (unknown); Hx Alcohol Use: No Hx Substance Use: No Preferred Language: Croatian Communication Ability: Unable Rotor Winder Required: No Beliefs That Will Affect Care: None marital status: Single Current Living Situation: Other Current Living Situation Comment: [facility] How many Children do You have: 0 Feels Safe at Home: Yes Assistive Devices: Oxygen - Continuous and Wheelchair Allergies Allergies Allergy/AdvReac Type Severity Reaction Status Date / Time No Known Allergies Allergy Unknown Verified 03/06/21 14:56 Home Meds Home Medications Medication Instructions Recorded Confirmed multivitamin (Multiple Vitamins) 1 tab PO QAM #0 02/27/11 03/06/21 carbamazepine 300 mg 300 mg PO BID #0 06/29/12 03/06/21 capsule,extended release [id number] (Carbatrol) white petrolatum 43 % topical 1 applic TOPICAL BID #0 11/11/14 03/06/21 ointment (Aloe [place] Protectant Ointment) aspirin 81 mg chewable tablet 81 mg PO QAM #0 07/17/17 03/06/21 denosumab 60 mg/mL subcutaneous 60 mg SUBCUT Q180D #0 07/17/17 03/06/21 syringe (Prolia) levothyroxine 100 mcg tablet 100 mcg PO DAILYBB #0 07/17/17 03/06/21 (Synthroid) methenamine hippurate 1 gram 1 g PO BID #0 07/17/17 03/06/21 tablet (Hiprex) lamotrigine 150 mg tablet 300 mg PO BID 06/11/18 03/06/21 (Lamictal) linaclotide 290 mcg capsule 290 mcg PO DAILYBB 06/11/18 03/06/21 (Linzess) polyethylene glycol 3350 17 gram 17 g PO BID 06/11/18 03/06/21 oral powder packet (Miralax) fluticasone propionate 50 2 spray INTRANASAL QAM 10/11/18 03/06/21 mcg/actuation nasal spray,suspension (Flonase Allergy Relief) lamotrigine 100 mg tablet 50 mg PO BID 10/11/18 03/06/21 levetiracetam 750 mg tablet 750 mg PO BID 10/11/18 03/06/21 (Keppra) cholecalciferol (vitamin D3) 50 2,000 units PO QAM 08/20/19 03/06/21 mcg (2,000 unit) capsule acetaminophen 325 mg tablet 650 mg PO Q4H PRN MDD max 3 gms/24h 01/07/20 03/06/21 (Tylenol) guaifenesin 600 mg tablet, 600 mg PO Q12H PRN 01/07/20 03/06/21 extended release 12 hr (Mucinex) hydrocortisone 2.5 % topical cream 1 applic PA BID PRN 01/07/20 03/06/21 with perineal applicator (Proctozone-HC) neomycin-bacitracn Zn-polymyx 3.5 1 applic TOPICAL DIRECTED PRN 01/07/20 03/06/21 mg-400 unit-5,000 unit/gram top oint (Triple Antibiotic) potassium chloride 20 mEq oral 20 meq PO QAM 02/14/21 03/06/21 packet (Klor-Con) furosemide 80 mg tablet 80 mg PO QAM 03/06/21 03/06/21 loratadine 10 mg tablet 10 mg PO QAM 03/06/21 03/06/21 Results & Data (ED) Vital Signs Vital Signs - 24 hr 03/06/21 13:20 03/06/21 13:21 03/06/21 13:30 Temperature 37 C Temperature Source Axillary Pulse Rate 65 68 Pulse Rate [Right Finger] Pulse Rate from SpO2 Sensor 66 70 Pulse Rhythm Regular Pulse Strength Normal Respiratory Rate 22 18 26 H Respiratory Effort / Characteristics Non-Labored Spontaneous Respiratory Depth Normal Respiratory Pattern Regular Blood Pressure 137/114 H 125/65 Blood Pressure [Left Arm] Blood Pressure Mean 121 85 Blood Pressure Mean [Left Arm] Blood Pressure Position Right Lateral Pulse Oximetry 99 100 98 Oxygen Delivery Method Nasal Cannula Oxygen Flow Rate Sepsis Recent Fever Within 48 Hours No Sepsis New/Unexplained Change in Mental Status N/A Sepsis Action Taken by Nursing No Action Required 03/06/21 14:00 03/06/21 14:12 03/06/21 14:32 Temperature Temperature Source Pulse Rate 72 67 72 Pulse Rate [Right Finger] Pulse Rate from SpO2 Sensor 70 70 Pulse Rhythm Pulse Strength Respiratory Rate 14 17 Respiratory Effort / Characteristics Respiratory Depth Respiratory Pattern Blood Pressure 121/85 111/74 Blood Pressure [Left Arm] Blood Pressure Mean 97 86 Blood Pressure Mean [Left Arm] Blood Pressure Position Pulse Oximetry 100 96 100 Oxygen Delivery Method Room Air Oxygen Flow Rate Sepsis Recent Fever Within 48 Hours Sepsis New/Unexplained Change in Mental Status Sepsis Action Taken by Nursing 03/06/21 14:35 03/06/21 15:01 03/06/21 15:32 Temperature Temperature Source Pulse Rate 92 H 64 Pulse Rate [Right Finger] Pulse Rate from SpO2 Sensor 70 66 Pulse Rhythm Pulse Strength Respiratory Rate 18 24 19 Respiratory Effort / Characteristics Non-Labored Respiratory Depth Respiratory Pattern Blood Pressure 83/37 L Blood Pressure [Left Arm] Blood Pressure Mean 52 Blood Pressure Mean [Left Arm] Blood Pressure Position Pulse Oximetry 96 100 100 Oxygen Delivery Method Room Air Oxygen Flow Rate Sepsis Recent Fever Within 48 Hours Sepsis New/Unexplained Change in Mental Status Sepsis Action Taken by Nursing 03/06/21 15:45 03/06/21 16:00 03/06/21 16:15 Temperature Temperature Source Pulse Rate 62 67 58 L Pulse Rate [Right Finger] Pulse Rate from SpO2 Sensor Pulse Rhythm Pulse Strength Respiratory Rate 18 18 14 Respiratory Effort / Characteristics Respiratory Depth Respiratory Pattern Blood Pressure Blood Pressure [Left Arm] Blood Pressure Mean Blood Pressure Mean [Left Arm] Blood Pressure Position Pulse Oximetry 99 90 95 Oxygen Delivery Method Oxygen Flow Rate Sepsis Recent Fever Within 48 Hours Sepsis New/Unexplained Change in Mental Status Sepsis Action Taken by Nursing 03/06/21 16:30 03/06/21 17:01 03/06/21 17:06 Temperature Temperature Source Pulse Rate 60 56 L Pulse Rate [Right Finger] 57 L Pulse Rate from SpO2 Sensor Pulse Rhythm Pulse Strength Respiratory Rate 17 12 17 Respiratory Effort / Characteristics Non-Labored Respiratory Depth Normal Respiratory Pattern Blood Pressure 121/58 L 126/51 L Blood Pressure [Left Arm] 126/51 L Blood Pressure Mean 79 76 Blood Pressure Mean [Left Arm] 76 Blood Pressure Position Pulse Oximetry 99 99 99 Oxygen Delivery Method Nasal Cannula Oxygen Flow Rate 3 Sepsis Recent Fever Within 48 Hours Sepsis New/Unexplained Change in Mental Status Sepsis Action Taken by Nursing 03/06/21 17:30 03/06/21 18:00 03/06/21 18:32 Temperature Temperature Source Pulse Rate 61 63 72 Pulse Rate [Right Finger] Pulse Rate from SpO2 Sensor Pulse Rhythm Pulse Strength Respiratory Rate 19 17 19 Respiratory Effort / Characteristics Respiratory Depth Respiratory Pattern Blood Pressure 125/60 125/59 L Blood Pressure [Left Arm] Blood Pressure Mean 81 81 Blood Pressure Mean [Left Arm] Blood Pressure Position Pulse Oximetry 100 98 100 Oxygen Delivery Method Oxygen Flow Rate Sepsis Recent Fever Within 48 Hours Sepsis New/Unexplained Change in Mental Status Sepsis Action Taken by Nursing Laboratory Data Result diagrams: 03/06/21 14:31 03/06/21 14:31 Lab Results 03/06/21 03/06/21 03/06/21 Range/Units 13:50 13:50 13:55 WBC (4.8-10.8) K/uL RBC (4.2-5.4) M/uL Hgb (12.0-16.0) g/dL Hct (37-47) % MCV (80-100) fL MCH (25-34) pg MCHC (32-36) g/dL RDW Std Deviation (36.4-46.3) fL RDW Coeff of Db (11.5-14.5) % Plt Count (130-400) K/uL MPV (7.4-10.4) fL Immature Gran % (Auto) % Neut % (Auto) % Lymph % (Auto) % Gonzales % (Auto) % Eos % (Auto) % Baso % (Auto) % Neut # (Auto) (1.4-6.5) K/uL Lymph # (Auto) (1.2-3.4) K/uL Gonzales # (Auto) (0.11-0.59) K/uL Eos # (Auto) (0-0.5) K/uL Baso # (Auto) (0-0.2) K/uL Immature Gran # (Auto) (0.00-0.02) K/uL PT (9.0-12.0) Seconds INR (0.9-1.1) APTT (21.0-31.0) Seconds PTT Ratio Sodium (136-145) mmol/L Potassium (3.5-5.1) mmol/L Chloride (98-107) mmol/L Carbon Dioxide (21-32) mmol/L Anion Gap (3-11) BUN (7-18) mg/dl Creatinine (0.6-1.2) mg/dl Est Cr Clr Drug Dosing ml/min Est GFR ( Amer) ml/min Est GFR (Non-Af Amer) ml/min BUN/Creatinine Ratio (10-20) Glucose (70-99) mg/dl Lactate (0.4-2.0) mmol/L Calcium (8.5-10.1) mg/dl Magnesium (1.8-2.4) mg/dl Total Bilirubin (0.2-1) mg/dl AST (15-37) U/L ALT (12-78) U/L Alkaline Phosphatase (45-117) U/L Total Protein (6.4-8.2) gm/dl Albumin (3.4-5.0) gm/dl Globulin (2.5-4.0) gm/dl Albumin/Globulin Ratio (0.9-2) Urine Color Yellow Urine Appearance Turbid A (Clear) Urine pH 7.5 (4.5-7.5) Ur Specific Ackerman 1.010 (1.000-1.030) Urine Protein 1+ H (Negative) Urine Glucose (UA) Negative (Negative) Urine Ketones Negative (Negative) Urine Blood 2+ H (Negative) Urine Nitrite Positive A (Negative) Urine Bilirubin Negative (Negative) Urine Urobilinogen Negative (Negative) Ur Leukocyte Esterase 3+ H (Negative) Urine WBC (Auto) >30 H (0-5) /hpf Urine RBC (Auto) 10-30 H (0-4) /hpf U Hyaline Cast (Auto) >30 H (0-5) /lpf U Epithel Cells (Auto) >30 H (0-5) /lpf Urine Bacteria (Auto) 2+ H (Negative) Ur Renal Epithelial Cell Not Reportable Calcium Oxalate Crystal Present A (None Prsent) Urine Yeast Not Reportable COVID-19 Eval Order Covid19 at [facility] SARS-CoV-2 (PCR) NEGATIVE (Negative) 03/06/21 03/06/21 03/06/21 Range/Units 14:31 14:31 14:31 WBC 4.18 L (4.8-10.8) K/uL RBC 3.93 L (4.2-5.4) M/uL Hgb 11.1 L (12.0-16.0) g/dL Hct 35.2 L (37-47) % MCV 89.6 (80-100) fL MCH 28.2 (25-34) pg MCHC 31.5 L (32-36) g/dL RDW Std Deviation 45.8 (36.4-46.3) fL RDW Coeff of Db 14.0 (11.5-14.5) % Plt Count 259 (130-400) K/uL MPV 10.1 (7.4-10.4) fL Immature Gran % (Auto) 0.0 % Neut % (Auto) 40.6 % Lymph % (Auto) 40.7 % Gonzales % (Auto) 12.2 % Eos % (Auto) 6.0 % Baso % (Auto) 0.5 % Neut # (Auto) 1.70 (1.4-6.5) K/uL Lymph # (Auto) 1.70 (1.2-3.4) K/uL Gonzales # (Auto) 0.51 (0.11-0.59) K/uL Eos # (Auto) 0.25 (0-0.5) K/uL Baso # (Auto) 0.02 (0-0.2) K/uL Immature Gran # (Auto) 0.00 (0.00-0.02) K/uL PT 10.2 (9.0-12.0) Seconds INR 1.0 (0.9-1.1) APTT 26.4 (21.0-31.0) Seconds PTT Ratio 1.0 Sodium 135 L (136-145) mmol/L Potassium 4.6 (3.5-5.1) mmol/L Chloride 98 (98-107) mmol/L Carbon Dioxide 32 (21-32) mmol/L Anion Gap 5.0 (3-11) BUN 34 H (7-18) mg/dl Creatinine 1.18 (0.6-1.2) mg/dl Est Cr Clr Drug Dosing 40.4 ml/min Est GFR ( Amer) 52.2 ml/min Est GFR (Non-Af Amer) 45.1 ml/min BUN/Creatinine Ratio 29.0 H (10-20) Glucose 86 (70-99) mg/dl Lactate (0.4-2.0) mmol/L Calcium 11.0 H (8.5-10.1) mg/dl Magnesium 2.2 (1.8-2.4) mg/dl Total Bilirubin 0.3 (0.2-1) mg/dl AST 26 (15-37) U/L ALT 32 (12-78) U/L Alkaline Phosphatase 143 H (45-117) U/L Total Protein 8.0 (6.4-8.2) gm/dl Albumin 3.3 L (3.4-5.0) gm/dl Globulin 4.7 H (2.5-4.0) gm/dl Albumin/Globulin Ratio 0.7 L (0.9-2) Urine Color Urine Appearance (Clear) Urine pH (4.5-7.5) Ur Specific Ackerman (1.000-1.030) Urine Protein (Negative) Urine Glucose (UA) (Negative) Urine Ketones (Negative) Urine Blood (Negative) Urine Nitrite (Negative) Urine Bilirubin (Negative) Urine Urobilinogen (Negative) Ur Leukocyte Esterase (Negative) Urine WBC (Auto) (0-5) /hpf Urine RBC (Auto) (0-4) /hpf U Hyaline Cast (Auto) (0-5) /lpf U Epithel Cells (Auto) (0-5) /lpf Urine Bacteria (Auto) (Negative) Ur Renal Epithelial Cell Calcium Oxalate Crystal (None Prsent) Urine Yeast COVID-19 Eval Order SARS-CoV-2 (PCR) (Negative) 03/06/21 03/06/21 Range/Units 14:31 16:55 WBC (4.8-10.8) K/uL RBC (4.2-5.4) M/uL Hgb (12.0-16.0) g/dL Hct (37-47) % MCV (80-100) fL MCH (25-34) pg MCHC (32-36) g/dL RDW Std Deviation (36.4-46.3) fL RDW Coeff of Db (11.5-14.5) % Plt Count (130-400) K/uL MPV (7.4-10.4) fL Immature Gran % (Auto) % Neut % (Auto) % Lymph % (Auto) % Gonzales % (Auto) % Eos % (Auto) % Baso % (Auto) % Neut # (Auto) (1.4-6.5) K/uL Lymph # (Auto) (1.2-3.4) K/uL Gonzales # (Auto) (0.11-0.59) K/uL Eos # (Auto) (0-0.5) K/uL Baso # (Auto) (0-0.2) K/uL Immature Gran # (Auto) (0.00-0.02) K/uL PT (9.0-12.0) Seconds INR (0.9-1.1) APTT (21.0-31.0) Seconds PTT Ratio Sodium (136-145) mmol/L Potassium (3.5-5.1) mmol/L Chloride (98-107) mmol/L Carbon Dioxide (21-32) mmol/L Anion Gap (3-11) BUN (7-18) mg/dl Creatinine (0.6-1.2) mg/dl Est Cr Clr Drug Dosing ml/min Est GFR ( Amer) ml/min Est GFR (Non-Af Amer) ml/min BUN/Creatinine Ratio (10-20) Glucose (70-99) mg/dl Lactate 0.5 0.4 (0.4-2.0) mmol/L Calcium (8.5-10.1) mg/dl Magnesium (1.8-2.4) mg/dl Total Bilirubin (0.2-1) mg/dl AST (15-37) U/L ALT (12-78) U/L Alkaline Phosphatase (45-117) U/L Total Protein (6.4-8.2) gm/dl Albumin (3.4-5.0) gm/dl Globulin (2.5-4.0) gm/dl Albumin/Globulin Ratio (0.9-2) Urine Color Urine Appearance (Clear) Urine pH (4.5-7.5) Ur Specific Ackerman (1.000-1.030) Urine Protein (Negative) Urine Glucose (UA) (Negative) Urine Ketones (Negative) Urine Blood (Negative) Urine Nitrite (Negative) Urine Bilirubin (Negative) Urine Urobilinogen (Negative) Ur Leukocyte Esterase (Negative) Urine WBC (Auto) (0-5) /hpf Urine RBC (Auto) (0-4) /hpf U Hyaline Cast (Auto) (0-5) /lpf U Epithel Cells (Auto) (0-5) /lpf Urine Bacteria (Auto) (Negative) Ur Renal Epithelial Cell Calcium Oxalate Crystal (None Prsent) Urine Yeast COVID-19 Eval Order SARS-CoV-2 (PCR) (Negative) Administered Medications Discontinued Medications Sodium Chloride (Nss 1000ml) 1,000 mls @ 999 mls/hr IV .Q1H1M ONE Stop: 03/06/21 14:29 Last Infusion: 03/06/21 15:27 Dose: 0 mls/hr Documented by: [id number] Admin: 03/06/21 14:15 Dose: 999 mls/hr Documented by: [id number] Cefepime HCl 2,000 mg/ Syringe 20 mls @ 5 mls/min IV NOW STA; Protocol Stop: 03/06/21 16:20 Last Admin: 03/06/21 17:06 Dose: 5 mls/min Documented by: [id number] Sodium Chloride (Nss 1000ml) 1,000 mls @ 999 mls/hr IV .Q1H1M ONE Stop: 03/06/21 17:17 Last Infusion: 03/06/21 17:58 Dose: 0 mls/hr Documented by: [id number] Admin: 03/06/21 17:06 Dose: 999 mls/hr Documented by: [id number] Ioversol (Optiray 320 100ml) 95 ml IV ONCE ONE Stop: 03/06/21 15:18 Last Admin: 03/06/21 15:19 Dose: 95 ml Documented by: [id number] Imaging Data Radiologist's Impression: Abdomen/Pelvis CT 03/06/21 13:29 CT abd pelvis IV con only CLINICAL HISTORY: abd pain COMPARISON STUDY: March 31, 2020 TECHNIQUE: A dose lowering technique was utilized adhering to the principles of ALARA. CT DOSE: 855.78 mGy.cm FINDINGS: Evaluation is slightly limited due to mild motion artifact as well as beam hardening artifact from patient's arms. Lower chest: Limited evaluation of lung bases shows extensive fibrotic changes and multiple cystic lesions within right lower lung which shows slight interval worsening since prior study. Previously seen volume loss of the right hemithorax is also worsened since prior.. -7 mm pulmonary nodule is seen within right lower lobe (3/2) and was not definitely seen on prior. Liver: The contrast-enhanced liver is normal in size, contour, and attenuation. There is no intrahepatic biliary ductal dilatation. Gallbladder: Unremarkable. Spleen: Is normal in size. Coarse subcapsular calcifications are again seen. Pancreas: Unremarkable. Adrenal glands: Unremarkable. Kidneys: There is symmetric renal cortical enhancement. The kidneys are normal in size without hydronephrosis.No nephrolithiasis is seen. Pelvic viscera: Urinary bladder is decompressed with Alvarado catheter. Previously seen numerous large bladder calculi are again seen and measure up to 2.8 cm in length. Uterus is not definitely seen, possibly surgically absent. Overall evaluation of the lower pelvis is limited due to beam hardening artifact from right hip prosthetic joint. Bowel: Loops of small bowel are nondilated. Rectum and sigmoid colon are dilated up to 10.5 cm with air-fluid level (3/256). Degree of dilatation is similar to prior study performed on March 31, 2020. Mild diffuse thickening of rectal wall measuring up to 5 mm is also unchanged since recent prior study. Also there is gaseous dilatation of the distal descending colon with few air-fluid level which are in the same level which is usually seen in ileus. Mild thickening of rectal wall could be seen in proctitis. Peritoneum: There is no intraperitoneal free air or abdominal ascites. Vasculature: The abdominal aorta is normal in course and caliber. Adenopathy: None. Skeletal structures: Diffuse osteopenia and multilevel degenerative changes of the spine. Compression fracture deformity of L2 is similar to prior study. Healed compression fracture deformity of the left pubic bone is unchanged since prior. IMPRESSION: 1. Stable significant dilatation of the rectosigmoid colon measuring up to 10 cm in diameter, unchanged since prior. Air-fluid level within loops of distal large bowel likely representing ileus. Follow-up evaluation with [facility] is suggest ed. 2. Thickening of the rectal wall is again seen, might represent proctitis. 3. Redemonstration of multiple calculi within collapsed urinary bladder. 4. Evaluation of pelvic region is suboptimal due to beam hardening artifact from left hip orthopedic hardware. 5. Fibrotic changes and volume loss within visualized portion of the right lung, slightly worsened since prior. Questionable nodule within the right lower lobe. Further evaluation with CT of the chest without IV contrast on none mergency basis is suggested. 6. The rest of findings as above. ACT 112: Positive. There are findings on this exam that require communication between the performing entity and the patient following Patient Test Result I nformation Act ([place] Act 112) guidelines. The above report was generated using voice recognition software. It may contain grammatical, syntax or spelling errors. Electronically signed by: Samantha Pan DO 03/06/2021 4:18 PM Chest X-Ray 03/06/21 13:29 XR chest 1V portable CLINICAL HISTORY: SEPSIS COMPARISON STUDY: February 14, 2021 FINDINGS: No pneumothorax. No pleural effusion. Interval prominence of pulmonary interstitium is seen within left mid to lower lung region, slightly worsened since prior and might represent scarring with possible superimposed pulmonary edema. Mild interval prominence of coarse reticular opacities at the right lung associated with unchanged volume loss of the right hemithorax which might represent scarring. Cardiomediastinal silhouette is stable. Aorta is tortuous. Pulmonary vasculature is indistinct.. Osseous structures: Degenerative changes of the right shoulder and spine. Osteopenia. IMPRESSION: 1. Possible pulmonary edema. Atelectasis/scarring at the left lower lung. 2. Redemonstration of the volume loss of the right hemithorax and mild interval prominence of coarsening of pulmonary interstitium of the right lung. ACT 112: Negative or not required by law. The above report was generated using voice recognition software. It may contain grammatical, syntax or spelling errors. Electronically signed by: Samantha Pan DO 03/06/2021 2:11 PM Discharge Plan Visit Data Chief Complaint: Illness Stated Complaint: WEAKNESS ED Provider: Murray Evans Discharge Problem: Acute UTI, Ileus, Acute hypotension, Leukopenia Forms Stand Alone Forms: [facility] Prescriptions Prescriptions: No Action multivitamin [Multiple Vitamins] Tablet 1 tab PO QAM Qty: 0 RF: 0 carbamazepine [Carbatrol] 300 mg Capsule, Er Multiphase 12 Hr 300 mg PO BID Qty: 0 RF: 0 Aloe [place] Protectant Ointment 43 % Ointment 1 applic TOPICAL BID Qty: 0 RF: 0 levothyroxine [Synthroid] 100 mcg Tablet 100 mcg PO DAILYBB Qty: 0 RF: 0 methenamine hippurate [Hiprex] 1 gram Tablet 1 g PO BID Qty: 0 RF: 0 aspirin 81 mg Tablet,Chewable 81 mg PO QAM Qty: 0 RF: 0 Prolia 60 mg/mL Syringe 60 mg subcut Q180D Qty: 0 RF: 0 cholecalciferol (vitamin D3) 50 mcg (2,000 unit) capsule 2,000 units PO QAM RF: 0 lamotrigine [Lamictal] 150 mg Tablet 300 mg PO BID RF: 0 polyethylene glycol 3350 [Miralax] 17 gram Powder In Packet 17 g PO BID RF: 0 Linzess 290 mcg Capsule 290 mcg PO DAILYBB RF: 0 fluticasone propionate [Flonase Allergy Relief] 50 mcg/actuation [place]ancos,Suspension 2 spray INTRANASAL QAM RF: 0 levetiracetam [Keppra] 750 mg tablet 750 mg PO BID RF: 0 lamotrigine 100 mg tablet 50 mg PO BID RF: 0 hydrocortisone [Proctozone-HC] 2.5 % Cream With Perineal Applicator 1 applic PA BID PRN (Reason: Hemorrhoids) RF: 0 acetaminophen [Tylenol] 325 mg Tablet 650 mg PO Q4H MDD max 3 gms/24h PRN (Reason: pain/fever) RF: 0 Triple Antibiotic 3.5mg-400 unit- 5,000 unit/gram Ointment 1 applic TOPICAL DIRECTED PRN (Reason: abrasions) RF: 0 guaifenesin [Mucinex] 600 mg Tablet Extended Release 12hr 600 mg PO Q12H PRN (Reason: Congestion) RF: 0 potassium chloride [Klor-Con] 20 mEq packet 20 meq PO QAM RF: 0 furosemide 80 mg tablet 80 mg PO QAM RF: 0 loratadine 10 mg Tablet 10 mg PO QAM RF: 0 Referrals Referrals: Lora Carvalho DO [Primary Care Provider] - Discharge Problem: Leukopenia Qualifiers: Leukopenia type: unspecified Qualified Code(s): D72.819 - Decreased white blood cell count, unspecified
--- NOTE | 2021-03-06 14:12 | XRay Report ---
XR chest 1V portable CLINICAL HISTORY: SEPSIS COMPARISON STUDY: February 14, 2021 FINDINGS: No pneumothorax. No pleural effusion. Interval prominence of pulmonary interstitium is seen within left mid to lower lung region, slightly worsened since prior and might represent scarring with possible superimposed pulmonary edema. Mild interval prominence of coarse reticular opacities at the right lung associated with unchanged vo lume loss of the right hemithorax which might represent scarring. Cardiomediastinal silhouette is stable. Aorta is tortuous. Pulmonary vasculature is indistinct.. Osseous structures: Degenerative changes of the right shoulder and spine. Osteopenia. IMPRESSION: 1. Possible pulmonary edema. Atelectasis/scarring at the left lower lung. 2. Redemonstration of the volume loss of the right hemithorax and mild interval prominence of coarse miguelina of pulmonary interstitium of the right lung. ACT 112: Negative or not required by law. The above report was generated using voice recognition software. It may contain grammatical, syntax o r spelling errors. Electronically signed by: Samantha Pan DO 03/06/2021 2:11 PM
[2021-03-06 14:39] LABS: Appearance Urine Turbid (Clear); Bacteria Urine Automated 2+ (Negative); Bilirubin Urine Negative (Negative); Blood Urine 2+ (Negative); Color Urine Yellow; Epithelial Cell Urine Auto >30 /lpf (0-5); Glucose Urine UA Negative (Negative); Ketones Urine Negative (Negative); Leukocyte Esterase Urine 3+ (Negative); Nitrite Urine Positive (Negative); Urobilinogen Urine Negative (Negative); WBC Urine Automated >30 /hpf (0-5); pH Urine 7.5 (4.5-7.5)
[2021-03-06 14:42] LABS: Basophils # (auto) 0.02 K/uL (0-0.2); Basophils % (auto) 0.5 %; Eosinophils # (auto) 0.25 K/uL (0-0.5); Hematocrit (blood only) 35.2 % (37-47); Hemoglobin 11.1 g/dL (12.0-16.0); Lymphocytes % (auto) 40.7 %; Mean Corpuscular Hemoglobin 28.2 pg (25-34); Mean Corpuscular Hgb Conc 31.5 g/dL (32-36); Mean Corpuscular Volume 89.6 fL (80-100); Mean Platelet Volume 10.1 fL (7.4-10.4); Monocytes # (auto) 0.51 K/uL (0.11-0.59); Monocytes % (auto) 12.2 %; Neutrophils % (auto) 40.6 %; Platelet Count 259 K/uL (130-400); RDW Standard Deviation 45.8 fL (36.4-46.3); Red Blood Count 3.93 M/uL (4.2-5.4); White Blood Count 4.18 K/uL (4.8-10.8)
[2021-03-06 14:50] LABS: Protein Urine 1+ (Negative)
[2021-03-06 14:54] LABS: Calcium Oxalate Crystals Urine Present (None Prsent); Cast Urine Automated >30 /lpf (0-5)
[2021-03-06 14:58] LABS: Partial Thromboplastin Time 26.4 Seconds (21.0-31.0); Prothrombin Time 10.2 Seconds (9.0-12.0)
[2021-03-06 14:59] LABS: Albumin Level 3.3 gm/dl (3.4-5.0); Creatinine Clr Calc Pharmacy 40.4 ml/min; Est GFR (African American) 52.2 ml/min; Est GFR (Non-African American) 45.1 ml/min; Magnesium 2.2 mg/dl (1.8-2.4); Potassium 4.6 mmol/L (3.5-5.1)
[2021-03-06 15:03] LABS: Albumin Globulin Ratio 0.7 (0.9-2); Bilirubin,Total 0.3 mg/dl (0.2-1); Globulin 4.7 gm/dl (2.5-4.0)
[2021-03-06] MEDS ORDERED: OPTIRAY 320 100ml IV ONE (15:17)
--- NOTE | 2021-03-06 16:07 | Electrocardiogram Report ---
Test Reason : Blood Pressure : / mmHG Vent. Rate : 068 BPM Atrial Rate : 068 BPM P-R Int : 206 ms QRS Dur : 090 ms QT Int : 396 ms P-R-T Axes : 112 042 087 degrees QTc Int : 421 ms Poor data quality, interpretation may be adversely affected Normal sinus rhythm Nonspecific ST and T wave abnormality Abnormal ECG When compared with ECG of 14-FEB-2021 09:33, Nonspecific T wave abnormality now evident in Lateral leads Confirmed by Abhishek Mccabe ([id number]) on 03/06/2021 4:06:34 PM Referred By: Confirmed By:Abhishek Mccabe
[2021-03-06] MEDS ORDERED: CEFEPIME 2,000 MG in SYRINGE 0 ML IV STA (16:17)
--- NOTE | 2021-03-06 16:20 | CT Scan Report ---
CT abd pelvis IV con only CLINICAL HISTORY: abd pain COMPARISON STUDY: March 31, 2020 TECHNIQUE: A dose lowering technique was utilized adhering to the principles of ALARA. CT DOSE: 855.78 mGy.cm FINDINGS: Evaluation is slightly limited due to mild motion artifact as well as beam hardening artifact from pa tient's arms. Lower chest: Limited evaluation of lung bases shows extensive fibrotic changes and multiple cystic le sions within right lower lung which shows slight interval worsening since prior study. Previously see n volume loss of the right hemithorax is also worsened since prior.. -7 mm pulmonary nodule is seen within right lower lobe (3/2) and was not definitely seen on prior. Liver: The contrast-enhanced liver is normal in size, contour, and attenuation. There is no intrahepa tic biliary ductal dilatation. Gallbladder: Unremarkable. Spleen: Is normal in size. Coarse subcapsular calcifications are again seen. Pancreas: Unremarkable. Adrenal glands: Unremarkable. Kidneys: There is symmetric renal cortical enhancement. The kidneys are normal in size without hydron ephrosis.No nephrolithiasis is seen. Pelvic viscera: Urinary bladder is decompressed with Alvarado catheter. Previously seen numerous large b ladder calculi are again seen and measure up to 2.8 cm in length. Uterus is not definitely seen, poss ibly surgically absent. Overall evaluation of the lower pelvis is limited due to beam hardening artif act from right hip prosthetic joint. Bowel: Loops of small bowel are nondilated. Rectum and sigmoid colon are dilated up to 10.5 cm with a ir-fluid level (3/256). Degree of dilatation is similar to prior study performed on March 31, 2020. Mild diffuse thickening of rectal wall measuring up to 5 mm is also unchanged since recent prior stud y. Also there is gaseous dilatation of the distal descending colon with few air-fluid level which are in the same level which is usually seen in ileus. Mild thickening of rectal wall could be seen in pr octitis. Peritoneum: There is no intraperitoneal free air or abdominal ascites. Vasculature: The abdominal aorta is normal in course and caliber. Adenopathy: None. Skeletal structures: Diffuse osteopenia and multilevel degenerative changes of the spine. Compression fracture deformity of L2 is similar to prior study. Healed compression fracture deformity of the lef t pubic bone is unchanged since prior. IMPRESSION: 1. Stable significant dilatation of the rectosigmoid colon measuring up to 10 cm in diameter, unchan ged since prior. Air-fluid level within loops of distal large bowel likely representing ileus. Follow -up evaluation with KUB is suggested. 2. Thickening of the rectal wall is again seen, might represent proctitis. 3. Redemonstration of multiple calculi within collapsed urinary bladder. 4. Evaluation of pelvic region is suboptimal due to beam hardening artifact from left hip orthopedic hardware. 5. Fibrotic changes and volume loss within visualized portion of the right lung, slightly worsened s tamika prior. Questionable nodule within the right lower lobe. Further evaluation with CT of the chest without IV contrast on nonemergency basis is suggested. 6. The rest of findings as above. ACT 112: Positive. There are findings on this exam that require communication between the performing entity and the patient following Patient Test Result Information Act [place] Act 112) guidelines. The above report was generated using voice recognition software. It may contain grammatical, syntax o r spelling errors. Electronically signed by: Samantha Pan DO 03/06/2021 4:18 PM
--- NOTE | 2021-03-06 16:40 | History & Physical Report ---
Date of Service March 06, 2021 Assessment & Plan (1) Complicated UTI (urinary tract infection): (2) Alvarado catheter in place: Plan: This is a 75yo F with a PMH of cerebral palsy with intellectual impairment, chronic diastolic congestive heart failure, interstitial lung disease, history of seizure disorder, hypothyroidism, urinaryretention with chronic indwelling Alvarado catheter, recurrent UTIs and on chronic methenamine suppression treatment, history of DVT as per records, history of constipation, HTN and other medical problems listed below who presents with lethargy and concern for infection. Lethargy and decreased appetite x 2 days Episode of hypotension but otherwise normotensive since arrival Lactate wnl UA abnormal, follow urine and blood cultures Has grown Pseudomonas and Proteus on past urine cultures Continue empiric cefepime (3) Seizure disorder: Plan: Follows at [facility] neurology Continue Dahlia Peter (4) Chronic constipation: Plan: CT abd pelvis wo con showing stable significant dilatation of the rectosigmoid colon measuring up to 10 cm in diameter, unchanged since prior Air-fluid level within loops of distal large bowel likely representing ileus. Follow-up evaluation with KUB is suggested Keeping NPO, IV fluids, bowel regimen, KUB in AM (5) Cerebral palsy: (6) Intellectual disability: Plan: Mostly nonverbal except for a few words, wheelchair bound, can feed herself when alert and at baseline (7) CHF (congestive heart failure): Plan: Continue Lasix 80mg daily (8) Interstitial lung disease: Plan: CT abd/pelvis with Fibrotic changes and volume loss within visualized portion of the right lung, slightly worsened since prior. Questionable nodule within the right lower lobe Further evaluation with CT of the chest without IV contrast on nonemergency basis is suggested Continue baseline 2L [place] O2 DVT Ppx: SQ Lovenox Code status: FULL - has been a full admission in the past. Will confirm with brother Barry ([phone]) PCP: Maia Dispo: Admitted to PCU. Discharge planning ordered Patient seen in collaboration with Dr. Grimes. Please see addendum. History of Present Illness Chief Complaint: lethrgic, concern for uti Primary Care Provider: Lora Carvalho, DO This is a 75yo F with a PMH of cerebral palsy, intellectual impairment, chronic diastolic congestive heart failure, interstitial lung disease on 2 L nasal cannula O2, history of seizure disorder, hypothyroidism, urinary retention with chronic indwelling Alvarado catheter, recurrent UTIs and on chronic methenamine suppression treatment, history of DVT as per records, history of constipation, HTN and other medical problems listed below who presents with lethargy and concern for infection. The patient is from personal intermediate and is mostly nonverbal at baseline, speaking few words. Is wheelchair bound. Caregiver at bedside. Patient has been notably more lethargic since yesterday with decreased p.o. intake. Also noted to have lower blood pressure than baseline. History of catheter associated urinary tract infections. Caregiver also noted that urine had strong odor a few days ago and was darker in color. No bright red blood p resent in collection bag. Was brought into ED for further evaluation. Unable to obtain ROS due to cognitive status. Allergies Allergy/AdvReac Type Severity Reaction Status Date / Time No Known Allergies Allergy Unknown Verified 03/06/21 14:56 Home Medications Medication Instructions Recorded Confirmed Type multivitamin (Multiple Vitamins) 1 tab PO QAM #0 02/27/11 03/06/21 History carbamazepine 300 mg 300 mg PO BID #0 06/29/12 03/06/21 History capsule,extended release [id number] (Carbatrol) white petrolatum 43 % topical 1 applic TOPICAL BID #0 11/11/14 03/06/21 History ointment (Aloe [place] Protectant Ointment) aspirin 81 mg chewable tablet 81 mg PO QAM #0 07/17/17 03/06/21 History denosumab 60 mg/mL subcutaneous 60 mg SUBCUT Q180D #0 07/17/17 03/06/21 History syringe (Prolia) levothyroxine 100 mcg tablet 100 mcg PO DAILYBB #0 07/17/17 03/06/21 History (Synthroid) methenamine hippurate 1 gram 1 g PO BID #0 07/17/17 03/06/21 History tablet (Hiprex) lamotrigine 150 mg tablet 300 mg PO BID 06/11/18 03/06/21 History (Lamictal) linaclotide 290 mcg capsule 290 mcg PO DAILYBB 06/11/18 03/06/21 History (Linzess) polyethylene glycol 3350 17 gram 17 g PO BID 06/11/18 03/06/21 History oral powder packet (Miralax) fluticasone propionate 50 2 spray INTRANASAL QAM 10/11/18 03/06/21 History mcg/actuation nasal spray,suspension (Flonase Allergy Relief) lamotrigine 100 mg tablet 50 mg PO BID 10/11/18 03/06/21 History levetiracetam 750 mg tablet 750 mg PO BID 10/11/18 03/06/21 History (Keppra) cholecalciferol (vitamin D3) 50 2,000 units PO QAM 08/20/19 03/06/21 History mcg (2,000 unit) capsule acetaminophen 325 mg tablet 650 mg PO Q4H PRN MDD max 3 gms/24h 01/07/20 03/06/21 History (Tylenol) guaifenesin 600 mg tablet, 600 mg PO Q12H PRN 01/07/20 03/06/21 History extended release 12 hr (Mucinex) hydrocortisone 2.5 % topical cream 1 applic CA BID PRN 01/07/20 03/06/21 History with perineal applicator (Proctozone-HC) neomycin-bacitracn Zn-polymyx 3.5 1 applic TOPICAL DIRECTED PRN 01/07/20 03/06/21 History mg-400 unit-5,000 unit/gram top oint (Triple Antibiotic) potassium chloride 20 mEq oral 20 meq PO QAM 02/14/21 03/06/21 History packet (Klor-Con) furosemide 80 mg tablet 80 mg PO QAM 03/06/21 03/06/21 History loratadine 10 mg tablet 10 mg PO QAM 03/06/21 03/06/21 History Past Med/Surg History Medical History Cerebral palsy Chronic indwelling Alvarado catheter Chronic obstructive pulmonary disease oxygen daily Colon abnormality Alvarado catheter in place History of DVT (deep vein thrombosis) "2002- right lower extremity, completed Coumadin therapy" On 01/30/15 10:26 Francine Mckeon wrote "2002- right lower extremity" History of recurrent UTI (urinary tract infection) Hypothyroidism Intellectual disability Nonverbal On home oxygen therapy 2L N/C at all times Proctitis Pulmonary fibrosis Seizure disorder last was "a couple months ago", "staring type seizures", denies grand mal--on keppra, lamictal and carbamazepine ---follows with Dr. 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 Required: No Beliefs That Will Affect Care: None marital status: Single Current Living Situation: Other Current Living Situation Comment: Skilled Nursing How many Children do You have: 0 Other Information That Helps Us Care for You: No Feels Safe at Home: Yes Assistive Devices: Oxygen - Continuous and Wheelchair Review of Systems Review of Systems: Unobtainable due to cognitive status Physical Exam Physical Exam: General Appearance: vitals as above, NAD, sitting up in bed, lethargic, not following verbal commands Head: normocephalic, atraumatic Eyes: normal inspection, PERRL, conjunctivae normal, anicteric sclerae ENT: external ear and nose normal, oropharynx normal Neck: normal visual inspection, trachea midline, no thyromegaly Respiratory: normal respiratory effort, lungs clear to auscultation, no wheeze, rales, rhonchi. No accessory muscle use Cardiovascular: regular rate, rhythm, no murmur, normal peripheral pulses, no BLE edema. Vessels: no JVD Chest: normal inspection of chest Abdomen/GI: hypoactive bowel sounds, soft, nontender, no hepatosplenomegaly : Alvarado catheter Extremities/Musculoskeletal: no cyanosis or clubbing, extremities motor strength 5/5 Neurologic: PERRL, moves all extremities spontaneously Psychiatric: nonverbal at baseline, lethargic Skin: no rashes, normal color, warm/dry Results & Data Results & Data ([facility]) Vital Signs (Past 12 Hours) Vital Signs Temp Pulse Resp BP Pulse Ox 03/06/21 15:32 64 19 100 03/06/21 15:01 92 H 24 83/37 L 100 03/06/21 14:35 18 96 03/06/21 14:32 72 17 111/74 100 03/06/21 14:12 67 96 03/06/21 14:00 72 14 121/85 100 03/06/21 13:30 26 H 125/65 98 03/06/21 13:21 37 C 68 18 137/114 H 100 03/06/21 13:20 65 22 99 Laboratory Results Short CBC 03/06/21 Range/Units 14:31 WBC 4.18 L (4.8-10.8) K/uL Hgb 11.1 L (12.0-16.0) g/dL Hct 35.2 L (37-47) % Plt Count 259 (130-400) K/uL BMP 03/06/21 14:31 Sodium 135 L Potassium 4.6 Chloride 98 Carbon Dioxide 32 BUN 34 H Creatinine 1.18 Glucose 86 Calcium 11.0 H Liver Function 03/06/21 Range/Units 14:31 Total Bilirubin 0.3 (0.2-1) mg/dl AST 26 (15-37) U/L ALT 32 (12-78) U/L Alkaline Phosphatase 143 H (45-117) U/L Albumin 3.3 L (3.4-5.0) gm/dl Urine 03/06/21 Range/Units 13:55 Urine Color Yellow Urine Appearance Turbid A (Clear) Urine pH 7.5 (4.5-7.5) Ur Specific [place] 1.010 (1.000-1.030) Urine Protein 1+ H (Negative) Urine Glucose (UA) Negative (Negative) Diagnostic Findings Abdomen/Pelvis CT 03/06/21 13:29 CT abd pelvis IV con only CLINICAL HISTORY: abd pain COMPARISON STUDY: March 31, 2020 TECHNIQUE: A dose lowering technique was utilized adhering to the principles of ALARA. CT DOSE: 855.78 mGy.cm FINDINGS: Evaluation is slightly limited due to mild motion artifact as well as beam hardening artifact from patient's arms. Lower chest: Limited evaluation of lung bases shows extensive fibrotic changes and multiple cystic lesions within right lower lung which shows slight interval worsening since prior study. Previously seen volume loss of the right hemithorax is also worsened since prior.. -7 mm pulmonary nodule is seen within right lower lobe (3/2) and was not definitely seen on prior. Liver: The contrast-enhanced liver is normal in size, contour, and attenuation. There is no intrahepatic biliary ductal dilatation. Gallbladder: Unremarkable. Spleen: Is normal in size. Coarse subcapsular calcifications are again seen. Pancreas: Unremarkable. Adrenal glands: Unremarkable. Kidneys: There is symmetric renal cortical enhancement. The kidneys are normal in size without hydronephrosis.No nephrolithiasis is seen. Pelvic viscera: Urinary bladder is decompressed with Alvarado catheter. Previously seen numerous large bladder calculi are again seen and measure up to 2.8 cm in length. Uterus is not definitely seen, possibly surgically absent. Overall evaluation of the lower pelvis is limited due to beam hardening artifact from right hip prosthetic joint. Bowel: Loops of small bowel are nondilated. Rectum and sigmoid colon are dilated up to 10.5 cm with air-fluid level (3/256). Degree of dilatation is similar to prior study performed on March 31, 2020. Mild diffuse thickening of rectal wall measuring up to 5 mm is also unchanged since recent prior study. Also there is gaseous dilatation of the distal descending colon with few air-fluid level which are in the same level which is usually seen in ileus. Mild thickening of rectal wall could be seen in proctitis. Peritoneum: There is no intraperitoneal free air or abdominal ascites. Vasculature: The abdominal aorta is normal in course and caliber. Adenopathy: None. Skeletal structures: Diffuse osteopenia and multilevel degenerative changes of the spine. Compression fracture deformity of L2 is similar to prior study. Healed compression fracture deformity of the left pubic bone is unchanged since prior. IMPRESSION: 1. Stable significant dilatation of the rectosigmoid colon measuring up to 10 cm in diameter, unchanged since prior. Air-fluid level within loops of distal large bowel likely representing ileus. Follow-up evaluation with KUB is suggested. 2. Thickening of the rectal wall is again seen, might represent proctitis. 3. Redemonstration of multiple calculi within collapsed urinary bladder. 4. Evaluation of pelvic region is suboptimal due to beam hardening artifact from left hip orthopedic hardware. 5. Fibrotic changes and volume loss within visualized portion of the right lung, slightly worsened since prior. Questionable nodule within the right lower lobe. Further evaluation with CT of the chest without IV contrast on nonemergency basis is suggested. 6. The rest of findings as above. ACT 112: Positive. There are findings on this exam that require communication between the performing entity and the patient following Patient Test Result Information Act ([place] Act 112) guidelines. The above report was generated using voice recognition software. It may contain grammatical, syntax or spelling errors. Electronically signed by: Samantha Pan DO 03/06/2021 4:18 PM Chest X-Ray 03/06/21 13:29 XR chest 1V portable CLINICAL HISTORY: SEPSIS COMPARISON STUDY: February 14, 2021 FINDINGS: No pneumothorax. No pleural effusion. Interval prominence of pulmonary interstitium is seen within left mid to lower lung region, slightly worsened since prior and might represent scarring with possible superimposed pulmonary edema. Mild interval prominence of coarse reticular opacities at the right lung associated with unchanged volume loss of the right hemithorax which might represent scarring. Cardiomediastinal silhouette is stable. Aorta is tortuous. Pulmonary vasculature is indistinct.. Osseous structures: Degenerative changes of the right shoulder and spine. Osteopenia. IMPRESSION: 1. Possible pulmonary edema. Atelectasis/scarring at the left lower lung. 2. Redemonstration of the volume loss of the right hemithorax and mild interval prominence of coarsening of pulmonary interstitium of the right lung. ACT 112: Negative or not required by law. The above report was generated using voice recognition software. It may contain grammatical, syntax or spelling errors. Electronically signed by: Samantha Pan DO 03/06/2021 2:11 PM Supervising Physician Co-Signing Physician Notes 75yo F with a PMH of cerebral palsy, intellectual impairment, chronic diastolic congestive heart failure, interstitial lung disease on 2 L nasal cannula O2, history of seizure disorder, hypothyroidism, urinary retention with chronic indwelling Alvarado catheter, recurrent UTIs and on chronic methenamine suppression treatment, history of DVT as per records, history of constipation, HTN and other medical problems was brought from skilled facility for concerns of not being herself since last weekend. Last Covid vaccine was in July. she uses 2 L oxygen at facility. She does have wet cough at baseline, no increase in the frequency and nature of the cough lately. Pertinent caregiver at the facility, she is not aware of the living will about the patient. Patient is nonverbal. In the ED, UA suggestive of UTI. Has history of recurrent UTI. We will put her on cefepime. Currently n.p.o., will reeval tomorrow. Upon examination: GENERAL: Open eyes to pain, on 2 L oxygen, HEENT: No pallor, no icterus. Pupils equal, round and reactive to light. Oral mucosa moist. NECK: No JVD, no neck masses. HEART: S1 and S2 heard. Regular rate and rhythm. No murmur, no gallop. RESPIRATORY SYSTEM: Normal AP diameter. No accessory muscle use. No wheezing, questionable crackles. ABDOMEN: Soft, bowel sounds present,, no distention. EXTREMITIES: No edema, no erythema seen. Left upper extremity contracted. I have seen and examined the patient and have discussed the case with the provider above. I agree with the assessment and plan as stated. (1) CHF (congestive heart failure) Heart failure chronicity: unspecified Heart failure type: unspecified Qualified Code(s): I50.9 - Heart failure, unspecified (2) Cerebral palsy Cerebral palsy type: spastic hemiplegic Qualified Code(s): 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
[2021-03-06] MEDS ORDERED: POLYETHYLENE (MIRALAX) 17 GM PACK PO PRN (20:43)
[2021-03-06] MEDS ORDERED: ONDANSETRON INJ 2 MG/ML 2 ML VIAL IV PRN (20:43)
[2021-03-06] MEDS ORDERED: NEOMYCIN/POLYMYX/BACITR OINT 15 GM TUBE TOP PRN (20:43)
[2021-03-06] MEDS ORDERED: guaiFENesin 600 MG TABCR PO PRN (20:43)
[2021-03-06] MEDS: lamoTRIgine 100 MG TAB PO SCH (21:50)
[2021-03-06] MEDS ORDERED: CEFEPIME CONSULT ACTIVE PRN (21:51)
[2021-03-06] MEDS: METHENAMINE HIPPURATE 1 GM TAB PO SCH (21:52)
[2021-03-06] MEDS: levETIRAcetam 250 MG TAB PO SCH (21:52)
[2021-03-06] MEDS: lamoTRIgine 25 MG TAB PO SCH (21:53)
[2021-03-06] MEDS: POLYETHYLENE (MIRALAX) 17 GM PACK PO SCH (21:53)
[2021-03-06] MEDS ORDERED: METOPROLOL TARTRATE 25 MG TAB PO STA (23:40)
[2021-03-07] MEDS: ALBUMIN 25% 12.5 GM/50 ML VIAL IV SCH ×2 (00:01→00:51)
[2021-03-07 00:44] LABS: BUN Creatinine Ratio 28.2 (10-20); Calcium 10.2 mg/dl (8.5-10.1); Creatinine Clr Calc Pharmacy 46.6 ml/min; Est GFR (African American) 66.2 ml/min; Est GFR (Non-African American) 57.1 ml/min; Phosphorus 3.8 mg/dl (2.5-4.9); Potassium 4.3 mmol/L (3.5-5.1)
[2021-03-07] MEDS ORDERED: SODIUM CHLORIDE 0.9% 500 ML IV ONE (02:12)
[2021-03-07] MEDS ORDERED: METOPROLOL TARTRATE 25 MG TAB PO STA (02:12)
[2021-03-07 03:03] LABS: Thyroid Stimulating Hormone 3.76 uIu/ml (0.300-4.500)
[2021-03-07] MEDS: CEFEPIME 2,000 MG in SYRINGE 0 ML IV SCH ×2 (05:35→16:19)
[2021-03-07] MEDS: LINACLOTIDE 145 MCG CAPSULE PO SCH ×2 (05:36→05:49)
[2021-03-07] MEDS: LEVOTHYROXINE SODIUM 100 MCG TABLET PO SCH ×2 (05:36→05:49)
--- NOTE | 2021-03-07 07:01 | Communication Note ---
Date of Service: March 06, 2021 Patient with runs of bigeminy/trigeminy on the monitor as per RN. Asymptomatic as per RN. AP Asymptomatic PVCs hx of structural heart disease (CHF as per records) Initiate beta-crystal to suppress ectopy Will relay to AM provider.
[2021-03-07 07:04] LABS: Hemoglobin 10.5 g/dL (12.0-16.0); Mean Corpuscular Hemoglobin 28.6 pg (25-34); Mean Corpuscular Hgb Conc 30.9 g/dL (32-36); Mean Corpuscular Volume 92.6 fL (80-100); Mean Platelet Volume 10.5 fL (7.4-10.4); Platelet Count 250 K/uL (130-400); RDW Coefficient of Variation 14.2 % (11.5-14.5); RDW Standard Deviation 47.9 fL (36.4-46.3); Red Blood Count 3.67 M/uL (4.2-5.4); White Blood Count 4.05 K/uL (4.8-10.8)
[2021-03-07 07:41] LABS: BUN Creatinine Ratio 28.7 (10-20); Calcium 9.9 mg/dl (8.5-10.1); Est GFR (African American) 75.5 ml/min; Est GFR (Non-African American) 65.2 ml/min; Potassium 4.3 mmol/L (3.5-5.1)
[2021-03-07] MEDS: ASPIRIN 81 MG CHEW PO SCH (08:27)
[2021-03-07] MEDS: levETIRAcetam 250 MG TAB PO SCH ×2 (08:30→21:04)
[2021-03-07] MEDS: lamoTRIgine 100 MG TAB PO SCH ×2 (08:31→21:05)
[2021-03-07] MEDS: lamoTRIgine 25 MG TAB PO SCH ×2 (08:32→21:06)
[2021-03-07] MEDS: MULTIVITAMIN TAB PO SCH (08:33)
[2021-03-07] MEDS: FLUTICASONE PROPIONATE NA SPR 16 GM BTL NAE SCH (08:33)
[2021-03-07] MEDS: METHENAMINE HIPPURATE 1 GM TAB PO SCH ×2 (08:33→21:04)
[2021-03-07] MEDS: POTASSIUM CHLORIDE CRTAB 20 MEQ TABCR PO SCH (08:33)
[2021-03-07] MEDS: LORATADINE 10 MG TAB PO SCH (08:33)
[2021-03-07] MEDS: CHOLECALCIFEROL 1,000 UNITS 25 MCG TAB PO SCH (08:33)
[2021-03-07] MEDS: POLYETHYLENE (MIRALAX) 17 GM PACK PO SCH ×2 (08:34→21:08)
[2021-03-07] MEDS ORDERED: FUROSEMIDE 80 MG TAB PO SCH (09:00)
[2021-03-07] MEDS: HEPARIN SOD 5,000 UNIT/0.5 ML VIAL SQ SCH ×2 (09:03→21:06)
--- NOTE | 2021-03-07 09:54 | XRay Report ---
KUB HISTORY: Abdominal distention. possible ileus COMPARISON: Abdomen and pelvis CT 03/06/2021. KUB 10/13/2018. FINDINGS: There are multiple dilated gas-filled loops of large and small bowel seen throughout the ab domen. This is slightly progressed compared to the prior study. The colon measures up to 13 cm in christophe meter, previously measuring 12 cm. Multiple bladder calculi are again noted. There is a right hip he miarthroplasty. No pneumoperitoneum or pneumatosis. IMPRESSION: Multiple dilated gas-filled loops of large and small bowel are again noted throughout the abdomen. Th is has slightly progressed compared to the 2019 examination but remain stable compared to the most re cent CT. Therefore, this suggests a chronic ileus. ACT 112: Negative or not required by law. Electronically signed by: Juan Carlos Garcia M.D. 03/07/2021 9:52 AM
--- NOTE | 2021-03-07 16:45 | Hospitalist Progress Note ---
Date of Service March 07, 2021 Assessment & Plan (1) Complicated UTI (urinary tract infection): (2) Metabolic encephalopathy: Plan: 75yo F with a PMH of cerebral palsy, intellectual impairment, chronic diastolic congestive heart failure, interstitial lung disease on 2 L nasal cannula O2, history of seizure disorder, hypothyroidism, urinary retention with chronic indwelling Alvarado catheter, recurrent UTIs and on chronic methenamine suppression treatment, history of DVT as per records, history of constipation, HTN and other medical problems was brought from skilled facility for concerns of not being herself 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 Last Covid vaccine was in July. she uses 2 L oxygen at facility. She does have wet cough at baseline, no increase in the frequency and nature of the cough lately. Per the caregiver at the facility, she is not aware of the living will about the patient. Patient is nonverbal. She is being managed for the following: #. Metabolic encephalopathy #. 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 Patient's urine analysis was suggestive of UTI Patient has history of Proteus and Pseudomonas infection in the past Patient started on cefepime 03/06, mentation improving to her baseline today, passed bedside swallow and eating okay per RN. Await admitting blood culture and urine culture Dietitian consulted for recommendationclear liquid for now. Pured beginning tomorrow, assist with feeding until she is able, feed only when awake and alert. Low threshold for speech eval. Nutrition supplement. #. Abnormal imaging findings Admitting CTAP: Stable significant dilatation of the rectosigmoid colon measuring up to 10 cm in diameter which is unchanged since prior. Redemonstration of multiple calculi within a collapsed urinary bladder. Fibrotic changes and volume loss in the right lung slightly worsened since prior with questionable nodule within the right lower lobe. Recommend follow-up CT chest without IV contrast on an outpatient basis. CXR: Possible pulmonary edema and atelectasis/scaring at the left lower lung. Redemonstration of volume loss of the right hemithorax. Patient has chronic ileus and chronic urinary calculi, patient is on chronic Alvarado catheter. Stable at baseline. #. Seizure disorder: Continue home medication Lamictal and Keppra #. Chronic constipation Admitting CTAP: See above TSH WNL. Moving bowel. #. Cerebral palsy #. Intellectual disability Mostly nonverbal except for a few words, wheelchair-bound, can feed herself and alert and at baseline #. CHF Currently decreased appetite. Continue Lasix from tomorrow #. Interstitial lung disease Imaging: See above At baseline oxygen which is 2 L at facility. DVT prophylaxis: Subcutaneous Lovenox CODE STATUS: Full, will reconfirm with brother Barry when able. Tried to reach Barry 2 times today to update him about his sister/discuss plan of care going forward but could not. Left voicemail. Disposition: To [facility] with telemetry. Likely discharge to the facility in next 1 to 2 days unless no new issues arises. Admission and Anticipated Discharge Date Admission Date: March 06, 2021 Subjective Patient was lying in bed, on 2 L nasal and oxygen, NAD, no acute issues overnight per RN. Patient is nonverbal, seems more at her baseline, patient has been able to swallow without aspiration per RN. ROS limited due to patient's condition. Physical Exam Physical Exam: GENERAL: Patient responsive and minimally cooperative, opens eyes spontaneously, AO cannot be assessed, patient nonverbal, on 2 L oxygen, HEENT: No pallor, no icterus. Pupils equal, round and reactive to light. Oral mucosa moist. NECK: No JVD, no neck masses. HEART: S1 and S2 heard. Regular rate and rhythm. No murmur, no gallop. RESPIRATORY SYSTEM: Normal AP diameter. No accessory muscle use. No wheezing, questionable crackles. ABDOMEN: Soft, bowel sounds present,, no distention. EXTREMITIES: Trace edema, no erythema seen. Left upper extremity contracted. Urinary catheter with cloudy urine collection. Results & Data Results & Data ([facility]) Vital Signs (Past 12 Hours) Vital Signs Temp Pulse Resp BP Pulse Ox 03/07/21 15:18 36.4 C L 80 18 121/62 100 03/07/21 11:49 36.4 C L 59 L 20 97/67 L 100 03/07/21 07:44 36.6 C 55 L 18 132/54 L 99
[2021-03-07] MEDS: METOPROLOL TARTRATE 25 MG TAB PO SCH (21:07)
[2021-03-08] MEDS: CEFEPIME 2,000 MG in SYRINGE 0 ML IV SCH ×2 (05:17→17:18)
[2021-03-08] MEDS: LEVOTHYROXINE SODIUM 100 MCG TABLET PO SCH (05:31)
[2021-03-08] MEDS: LINACLOTIDE 145 MCG CAPSULE PO SCH (05:31)
[2021-03-08 07:41] LABS: Hematocrit (blood only) 35.6 % (37-47); Hemoglobin 11.1 g/dL (12.0-16.0); Mean Corpuscular Hemoglobin 28.5 pg (25-34); Mean Corpuscular Hgb Conc 31.2 g/dL (32-36); Mean Corpuscular Volume 91.5 fL (80-100); Mean Platelet Volume 10.9 fL (7.4-10.4); Platelet Count 264 K/uL (130-400); RDW Coefficient of Variation 14.5 % (11.5-14.5); RDW Standard Deviation 48.2 fL (36.4-46.3); Red Blood Count 3.89 M/uL (4.2-5.4); White Blood Count 4.81 K/uL (4.8-10.8)
[2021-03-08] MEDS: ASPIRIN 81 MG CHEW PO SCH (08:07)
[2021-03-08] MEDS: levETIRAcetam 250 MG TAB PO SCH ×2 (08:08→21:42)
[2021-03-08] MEDS: lamoTRIgine 100 MG TAB PO SCH ×2 (08:08→21:43)
[2021-03-08] MEDS: CHOLECALCIFEROL 1,000 UNITS 25 MCG TAB PO SCH (08:08)
[2021-03-08] MEDS: lamoTRIgine 25 MG TAB PO SCH ×2 (08:08→21:44)
[2021-03-08] MEDS: FLUTICASONE PROPIONATE NA SPR 16 GM BTL NAE SCH (08:08)
[2021-03-08 08:09] LABS: BUN Creatinine Ratio 25.3 (10-20); Creatinine Clr Calc Pharmacy 49.9 ml/min; Est GFR (African American) 73.5 ml/min; Est GFR (Non-African American) 63.4 ml/min; Potassium 3.9 mmol/L (3.5-5.1)
[2021-03-08] MEDS: HEPARIN SOD 5,000 UNIT/0.5 ML VIAL SQ SCH ×2 (08:09→21:52)
[2021-03-08] MEDS: METHENAMINE HIPPURATE 1 GM TAB PO SCH ×2 (08:09→21:42)
[2021-03-08] MEDS: MULTIVITAMIN TAB PO SCH (08:09)
[2021-03-08] MEDS: POLYETHYLENE (MIRALAX) 17 GM PACK PO SCH ×2 (08:09→21:52)
[2021-03-08] MEDS: POTASSIUM CHLORIDE CRTAB 20 MEQ TABCR PO SCH (08:09)
[2021-03-08] MEDS: LORATADINE 10 MG TAB PO SCH (08:09)
[2021-03-08] MEDS: METOPROLOL TARTRATE 25 MG TAB PO SCH ×2 (08:10→21:42)
[2021-03-08] MEDS: FUROSEMIDE 80 MG TAB PO SCH (09:44)
--- NOTE | 2021-03-08 13:01 | Hospitalist Progress Note ---
Date of Service March 08, 2021 Assessment & Plan (1) Metabolic encephalopathy: (2) Catheter-associated urinary tract infection: (3) Complicated UTI (urinary tract infection): Plan: 75yo F with a PMH of cerebral palsy, intellectual impairment, chronic diastolic congestive heart failure, interstitial lung disease on 2 L nasal cannula O2, history of seizure disorder, hypothyroidism, urinary retention with chronic indwelling Alvarado catheter, recurrent UTIs and on chronic methenamine suppression treatment, history of DVT as per records, history of constipation, HTN and other medical problems was brought from skilled facility for concerns of 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 Last Covid vaccine was in July. she uses 2 L oxygen at facility. She does have wet cough at baseline, no increase in the frequency and nature of the cough lately. Per the caregiver at the facility, she is not aware of the living will about the patient. Patient is nonverbal. She is being managed for the following: #. Metabolic encephalopathy #. 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 Patient's urine analysis was suggestive of UTI Patient has history of Proteus and Pseudomonas infection in the past Patient started on cefepime 03/06, mentation improving, patient eating with some assistance per RN. Likely transition to p.o. ATB tomorrow depending on her clinical status. Await admitting blood culture and urine culture Dietitian consulted for recommendationclear liquid, advance to pured diet when able. Assist with feeding until she is able, feed only when awake and alert. Low threshold for speech eval. Nutrition supplement. #. Abnormal imaging findings Admitting CTAP: Stable significant dilatation of the rectosigmoid colon measuring up to 10 cm in diameter which is unchanged since prior. Redemonstration of multiple calculi within a collapsed urinary bladder. Fibrotic changes and volume loss in the right lung slightly worsened since prior with questionable nodule within the right lower lobe. Recommend follow-up CT chest without IV contrast on an outpatient basis. CXR: Possible pulmonary edema and atelectasis/scaring at the left lower lung. Redemonstration of volume loss of the right hemithorax. Patient has chronic ileus and chronic urinary calculi, patient is on chronic Alvarado catheter. Stable at baseline. Patient GI doctor is Dr. Velez #. Seizure disorder: Continue home medication Lamictal and Keppra #. Chronic constipation Admitting CTAP: See above TSH WNL. Moving bowel. #. Cerebral palsy #. Intellectual disability Mostly nonverbal except for a few words, wheelchair-bound, can feed herself and alert and at baseline #. CHF Currently decreased appetite. Resumed home Lasix #. Interstitial lung disease Imaging: See above At baseline oxygen which is 2 L at facility. DVT prophylaxis: Subcutaneous Lovenox CODE STATUS: Full 03/07 Tried to reach Barry 2 times today to update him about his sister/discuss plan of care going forward but could not. Left voicemail. 03/08 called Barry today, his [Joyce] picked up the phone, updated about the condition on Minerva. They directed me to Diana at the skilled facility for any medical questions and plan of care. 03/08 called Diana at the skilled facility [[phone]], she said that she is not aware of the living will on the patient. She is full code for now. Discussed plan of care with her and she is agreeable to palliative care consult at this point. She will need a transfer to different facility from March. She states that her baseline is alert and somewhat to feed herself under supervision. She seemed understanding and agreeable to the plan of care. Disposition: To [facility] with telemetry. Likely discharge to the facility in next 1 to 2 days unless no new issues arises. CM to assist with DC planning Admission and Anticipated Discharge Date Admission Date: March 06, 2021 Subjective Patient was lying in bed, on 2 L nasal and oxygen, NAD, no acute issues overnight per RN. Patient is nonverbal, seems closer to her baseline, patient has been able to swallow without aspiration per RN. Per RN, she is moving her bowel, needed assistance with feeding, not communicating much. ROS limited due to patient's condition. Physical Exam 2 Physical Exam: GENERAL: Patient responsive and minimally cooperative, opens eyes spontaneously, AO cannot be assessed, patient nonverbal, on 2 L oxygen, HEENT: No pallor, no icterus. Pupils equal, round and reactive to light. Oral mucosa moist. NECK: No JVD, no neck masses. HEART: S1 and S2 heard. Regular rate and rhythm. No murmur, no gallop. RESPIRATORY SYSTEM: Normal AP diameter. No accessory muscle use. No wheezing, questionable crackles. ABDOMEN: Soft, bowel sounds present,, no distention. EXTREMITIES: Trace edema, no erythema seen. Left upper extremity contracted. Urinary catheter with cloudy urine collection. Results & Data Results & Data ([facility]) Vital Signs (Past 12 Hours) Vital Signs Temp Pulse Resp BP Pulse Ox 03/08/21 11:09 36.8 C 57 L 20 144/83 H 100 03/08/21 07:04 36.8 C 50 L 20 154/66 H 100 03/08/21 03:50 36.3 C L 60 20 138/85 99 (1) Catheter-associated urinary tract infection Encounter type: initial encounter Indwelling urinary catheter type: indwelling urethral catheter Qualified Code(s): T83.511A - Infection and inflammatory reaction due to indwelling urethral catheter, initial encounter; N39.0 - Urinary tract infection, site not specified
--- NOTE | 2021-03-08 13:39 | Palliative Care Consultation ---
Date of Consultation March 08, 2021 Assessment & Plan (1) Palliative care encounter: I spoke with Minerva's brother and sister in law, Barry and Joyce Sanchez. They have only recently been her primary contacts since her older brother . They do not have POA or legal guardianship for Minerva. They tell me that she has been living in a half-way but has been requiring a higher level of care and is being moved to another facility on March 24 to accommodate her needs. They have not considered goals of care and feel that this type of discussion would be better done with her PCP, Dr. Carvalho. They did tell me that Minerva has a manager case management, Jennifer Miller, whose number is [phone]. I did call her to clarify whether Minerva has an appointed guardian and who has been making decisions regarding her care. She was not in the office but I left a message. (2) Ileus: (3) Complicated UTI (urinary tract infection): (4) Intellectual disability: (5) Seizure disorder: (6) Pulmonary fibrosis: History of Present Illness Reason for Consultation: goals of care Requesting Physician: Dr. Grimes Attending Physician: Edna Grimes MD History of Present Illness 75 yo lady with cerebral palsy, HFpEF, ILD and recurrent UTIs. She was admitted after presenting with lethargy and hypotension. UA was consistent with UTI. She is currently on cefipime and urine culture is pending. She was also noted to have ileus and has been getting miralax. She has had two large BMs since admission. She is currently sleeping and arouses only briefly. Allergies Allergy/AdvReac Type Severity Reaction Status Date / Time No Known Allergies Allergy Unknown Verified 03/06/21 14:56 Home Medications Medication Instructions Recorded Confirmed Type multivitamin (Multiple Vitamins) 1 tab PO QAM #0 02/27/11 03/06/21 History carbamazepine 300 mg 300 mg PO BID #0 06/29/12 03/06/21 History capsule,extended release [id number] (Carbatrol) white petrolatum 43 % topical 1 applic TOPICAL BID #0 11/11/14 03/06/21 History ointment (Aloe [place] Protectant Ointment) aspirin 81 mg chewable tablet 81 mg PO QAM #0 07/17/17 03/06/21 History denosumab 60 mg/mL subcutaneous 60 mg SUBCUT Q180D #0 07/17/17 03/06/21 History syringe (Prolia) levothyroxine 100 mcg tablet 100 mcg PO DAILYBB #0 07/17/17 03/06/21 History (Synthroid) methenamine hippurate 1 gram 1 g PO BID #0 07/17/17 03/06/21 History tablet (Hiprex) lamotrigine 150 mg tablet 300 mg PO BID 06/11/18 03/06/21 History (Lamictal) linaclotide 290 mcg capsule 290 mcg PO DAILYBB 06/11/18 03/06/21 History (Linzess) polyethylene glycol 3350 17 gram 17 g PO BID 06/11/18 03/06/21 History oral powder packet (Miralax) fluticasone propionate 50 2 spray INTRANASAL QAM 10/11/18 03/06/21 History mcg/actuation nasal spray,suspension (Flonase Allergy Relief) lamotrigine 100 mg tablet 50 mg PO BID 10/11/18 03/06/21 History levetiracetam 750 mg tablet 750 mg PO BID 10/11/18 03/06/21 History (Keppra) cholecalciferol (vitamin D3) 50 2,000 units PO QAM 08/20/19 03/06/21 History mcg (2,000 unit) capsule acetaminophen 325 mg tablet 650 mg PO Q4H PRN MDD max 3 gms/24h 01/07/20 03/06/21 History (Tylenol) guaifenesin 600 mg tablet, 600 mg PO Q12H PRN 01/07/20 03/06/21 History extended release 12 hr (Mucinex) hydrocortisone 2.5 % topical cream 1 applic [place] BID PRN 01/07/20 03/06/21 History with perineal applicator (Proctozone-HC) neomycin-bacitracn Zn-polymyx 3.5 1 applic TOPICAL DIRECTED PRN 01/07/20 03/06/21 History mg-400 unit-5,000 unit/gram top oint (Triple Antibiotic) potassium chloride 20 mEq oral 20 meq PO QAM 02/14/21 03/06/21 History packet (Klor-Con) furosemide 80 mg tablet 80 mg PO QAM 03/06/21 03/06/21 History loratadine 10 mg tablet 10 mg PO QAM 03/06/21 03/06/21 History Patient History Medical History (Updated 03/08/21 @ 13:41 by Radha Jones MD) Cerebral palsy Chronic indwelling Alvarado catheter Chronic obstructive pulmonary disease oxygen daily Colon abnormality Alvarado catheter in place History of DVT (deep vein thrombosis) "2002- right lower extremity, completed Coumadin therapy" On 01/30/15 10:26 Francine Mckeon wrote "2002- right lower extremity" History of recurrent UTI (urinary tract infection) Hypothyroidism Intellectual disability Nonverbal On home oxygen therapy 2L N/C at all times Proctitis Pulmonary fibrosis Seizure disorder last was "a couple months ago", "staring type seizures", denies grand mal--on keppra, lamictal and carbamazepine ---follows with Dr. Stoddard Surgical History History of cystoscopy History of total right hip arthroplasty Family History Mother Hypertension Father Heart disease Grandmother Cancer Other Family history unknown Social History Smoking Status: Never smoker Second Hand Exposure: No; Do You Dip or Chew Tobacco: No; Tobacco Cessation Education Requested by Patient: No Hx Alcohol Use: No Hx Substance Use: No Preferred Language: Syrian Communication Ability: Unable Communication Ability Comment: Non verbal can answer some questions Pantograph Ii Engraver Required: No Beliefs That Will Affect Care: None marital status: Single Current Living Situation: Other Current Living Situation Comment: Long-Term How many Children do You have: 0 Other Information That Helps Us Care for You: No Feels Safe at Home: Yes Assistive Devices: Oxygen - Continuous Review of Systems Review of Systems: Unobtainable due to cognitive status and Unobtainable due to reduced consciousness PainAD 0/3 Palliative Performance Score 20% Physical Exam Constitutional: no acute distress Respiratory: normal respiratory effort; no labored breathing Cardiovascular: Rate/Rhythm: regular rate and regular rhythm Gastrointestinal (Abdomen): soft, nontender Musculoskeletal: contractures, muscle atrophy Results & Data ([facility]) Vital Signs (Past 12 Hours) Vital Signs Temp Pulse Resp BP Pulse Ox 03/08/21 11:09 98.2 F 57 L 20 144/83 H 100 03/08/21 07:04 98.2 F 50 L 20 154/66 H 100 03/08/21 03:50 97.3 F L 60 20 138/85 99 PG Care Time/CCT Total # of Minutes Spent Total Time Spent with Patient: Total time spent is greater than 50% in coordination of care (as documented) at patient's floor/unit and/or counseling patient: Coding Level of Care Code 94993 Initial Inpt Care Lvl 2 Diagnoses Palliative care encounter Z51.5 Ileus K56.7 Complicated UTI (urinary tract infection) N39.0 Intellectual disability F79 Seizure disorder G40.909 Pulmonary fibrosis J84.10
[2021-03-09] MEDS: LEVOTHYROXINE SODIUM 100 MCG TABLET PO SCH (05:18)
[2021-03-09] MEDS: CEFEPIME 2,000 MG in SYRINGE 0 ML IV SCH ×2 (05:18→17:23)
[2021-03-09] MEDS: LINACLOTIDE 145 MCG CAPSULE PO SCH (05:18)
[2021-03-09 07:44] LABS: Hemoglobin 11.2 g/dL (12.0-16.0); Mean Corpuscular Hemoglobin 28.6 pg (25-34); Mean Corpuscular Hgb Conc 31.1 g/dL (32-36); Mean Corpuscular Volume 91.8 fL (80-100); Mean Platelet Volume 11.1 fL (7.4-10.4); Platelet Count 237 K/uL (130-400); RDW Coefficient of Variation 14.6 % (11.5-14.5); RDW Standard Deviation 49.1 fL (36.4-46.3); Red Blood Count 3.92 M/uL (4.2-5.4); White Blood Count 5.25 K/uL (4.8-10.8)
[2021-03-09 08:09] LABS: BUN Creatinine Ratio 24.6 (10-20); Calcium 11.1 mg/dl (8.5-10.1); Creatinine Clr Calc Pharmacy 38.2 ml/min; Est GFR (African American) 53.3 ml/min; Potassium 3.4 mmol/L (3.5-5.1)
[2021-03-09] MEDS: levETIRAcetam 250 MG TAB PO SCH ×2 (08:53→21:47)
[2021-03-09] MEDS: METHENAMINE HIPPURATE 1 GM TAB PO SCH ×2 (08:53→21:53)
[2021-03-09] MEDS: lamoTRIgine 25 MG TAB PO SCH ×2 (08:53→21:45)
[2021-03-09] MEDS: lamoTRIgine 100 MG TAB PO SCH ×2 (08:53→21:46)
[2021-03-09] MEDS: METOPROLOL TARTRATE 25 MG TAB PO SCH ×2 (08:53→21:48)
[2021-03-09] MEDS: CHOLECALCIFEROL 1,000 UNITS 25 MCG TAB PO SCH (08:54)
[2021-03-09] MEDS: LORATADINE 10 MG TAB PO SCH (08:54)
[2021-03-09] MEDS: MULTIVITAMIN TAB PO SCH (08:54)
[2021-03-09] MEDS: FLUTICASONE PROPIONATE NA SPR 16 GM BTL NAE SCH (08:54)
[2021-03-09] MEDS: HEPARIN SOD 5,000 UNIT/0.5 ML VIAL SQ SCH ×2 (08:55→21:42)
[2021-03-09] MEDS: POTASSIUM CHLORIDE CRTAB 20 MEQ TABCR PO SCH (09:22)
--- NOTE | 2021-03-09 09:23 | Palliative Care Progress Note ---
Date of Service March 09, 2021 Assessment & Plan (1) Altered mental status: Plan: Improving with antibiotics. Three organisms present at high counts on urine culture. (2) Palliative care encounter: Plan: I was able to speak with Jennifer Miller who has been returned case inspector for Minerva for more than ten years. She tells me that Minerva does not have an appointed guardian or healthcare POA. She says that decisions have been made in the past with input from Minerva, staff and her family. She does not have an advance directive. At this time, Minerva is not capable of medical decision making. That may improve as her infection improves. However, it would be in her best interest to determine a specific health care surrogate decision maker to guide her care moving forward if she is unable to do so. Her brother, Barry, and his would like to defer this discussion to a visit with her PCP which is totally appropriate but Jennifer will talk with administrators at [facility] to clarify who her surrogate would be. (3) Ileus: (4) Complicated UTI (urinary tract infection): (5) Pulmonary fibrosis: Admission and Anticipated Discharge Date Admission Date: March 06, 2021 Subjective More awake today. Answers yes or no to questions but not appropriately. Review of Systems Review of Systems: Unobtainable due to cognitive status [place] Symptom Assessment Scale Pain AD 0/3 Dyspnea by observation 0/3 Palliative Performance Score 30% Physical Exam Constitutional: comfortable; no acute distress Respiratory: normal respiratory effort; no labored breathing Cardiovascular: Rate/Rhythm: regular rate and regular rhythm Extremities: no edema Gastrointestinal (Abdomen): nontender Musculoskeletal: contractures, muscle atropy Results & Data ([facility]) Vital Signs (Past 12 Hours) Vital Signs Temp Pulse Pulse Resp BP Pulse Ox 03/09/21 07:43 98.6 F 60 20 115/55 L 93 03/09/21 03:35 98.6 F 68 20 139/74 94 03/09/21 01:00 70 03/08/21 23:25 98.8 F 67 20 140/68 100 PG Care Time/CCT Total # of Minutes Spent Total Time Spent: 40 Total Time Spent with Patient: Total time spent is greater than 50% in coordination of care (as documented) at patient's floor/unit and/or counseling patient: goals of care, surrogate decision maker Coding Level of Care Code 84230 Subseq Hosp Care Lvl 3 Diagnoses Altered mental status R41.82 Altered mental status type: unspecified Palliative care encounter Z51.5 Ileus K56.7 Complicated UTI (urinary tract infection) N39.0 Pulmonary fibrosis J84.10 (1) Altered mental status Altered mental status type: unspecified Qualified Code(s): R41.82 - Altered mental status, unspecified
[2021-03-09] MEDS: FUROSEMIDE 80 MG TAB PO SCH (09:32)
[2021-03-09] MEDS: POLYETHYLENE (MIRALAX) 17 GM PACK PO SCH ×2 (09:37→22:46)
[2021-03-09] MEDS: ASPIRIN 81 MG CHEW PO SCH (09:37)
--- NOTE | 2021-03-09 16:06 | Hospitalist Progress Note ---
Date of Service March 09, 2021 Assessment & Plan (1) Metabolic encephalopathy: (2) Catheter-associated urinary tract infection: (3) Complicated UTI (urinary tract infection): Plan: 75yo F with a PMH of cerebral palsy, intellectual impairment, chronic diastolic congestive heart failure, interstitial lung disease on 2 L nasal cannula O2, history of seizure disorder, hypothyroidism, urinary retention with chronic indwelling Alvarado catheter, recurrent UTIs and on chronic methenamine suppression treatment, history of DVT as per records, history of constipation, HTN and other medical problems was brought from skilled facility for concerns of not being herself 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 Last Covid vaccine was in July. she uses 2 L oxygen at facility. She does have wet cough at baseline, no increase in the frequency and nature of the cough lately. Per the caregiver at the facility, she is not aware of the living will about the patient. Patient is nonverbal. She is being managed for the following: #. Metabolic encephalopathy #. 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 Patient's urine analysis was suggestive of UTI Patient has history of Proteus and Pseudomonas infection in the past Patient started on cefepime 03/06, mentation improving, patient eating with some assistance per RN. Likely transition to p.o. ATB tomorrow depending on her clinical status. Admitting blood culture no growth after 48 hours. Admitting urine culture grew 3 types of organism, all high counts; no point in repeating urine culture since he has been already on antibiotics for so many days. Dietitian consulted for recommendationclear liquid, advance to pured diet when able. Assist with feeding until she is able, feed only when awake and alert. Low threshold for speech eval. Nutrition supplement. #. Abnormal imaging findings Admitting CTAP: Stable significant dilatation of the rectosigmoid colon measuring up to 10 cm in diameter which is unchanged since prior. Redemonstration of multiple calculi within a collapsed urinary bladder. Fibrotic changes and volume loss in the right lung slightly worsened since prior with questionable nodule within the right lower lobe. Recommend follow-up CT chest without IV contrast on an outpatient basis. CXR: Possible pulmonary edema and atelectasis/scaring at the left lower lung. Redemonstration of volume loss of the right hemithorax. Patient has chronic ileus and chronic urinary calculi, patient is on chronic Alvarado catheter. Stable at baseline. Patient GI doctor is Dr. Velez #. Seizure disorder: Continue home medication Lamictal and Keppra #. Chronic constipation Admitting CTAP: See above TSH WNL. Moving bowel. #. Cerebral palsy #. Intellectual disability Mostly nonverbal except for a few words, wheelchair-bound, can feed herself and alert and at baseline #. CHF Currently decreased appetite. Resumed home Lasix #. Interstitial lung disease Imaging: See above At baseline oxygen which is 2 L at facility. DVT prophylaxis: Subcutaneous Lovenox CODE STATUS: Full 03/07 Tried to reach Barry 2 times today to update him about his sister/discuss plan of care going forward but could not. Left voicemail. 03/08 called Barry today, his [Joyce] picked up the phone, updated about the condition on [place]. They directed me to Diana at the skilled facility for any medical questions and plan of care. 03/08 called Diana at the skilled facility [[phone]], she said that she is not aware of the living will on the patient. She is full code for now. Discussed plan of care with her and she is agreeable to palliative care consult at this point. She will need a transfer to different facility from March. She states that her baseline is alert and somewhat to feed herself under supervision. She seemed understanding and agreeable to the plan of care. Disposition: To [facility] with telemetry. Likely discharge to the facility in next 1 to 2 days unless no new issues arises. CM to assist with DC planning back to assisted living. Admission and Anticipated Discharge Date Admission Date: March 06, 2021 Subjective Patient was lying in bed, on 2 L nasal and oxygen, NAD. Patient is nonverbal, seems closer to her baseline, patient has been able to swallow without aspiration per RN. ROS limited due to patient's condition. Physical Exam Physical Exam: GENERAL: Patient responsive and minimally cooperative, opens eyes spontaneously, AO cannot be assessed, patient nonverbal, on 2 L oxygen, HEENT: No pallor, no icterus. Pupils equal, round and reactive to light. Oral mucosa moist. NECK: No JVD, no neck masses. HEART: S1 and S2 heard. Regular rate and rhythm. No murmur, no gallop. RESPIRATORY SYSTEM: Normal AP diameter. No accessory muscle use. No wheezing, questionable crackles. ABDOMEN: Soft, bowel sounds present,, no distention. EXTREMITIES: Trace edema, no erythema seen. Left upper extremity contracted. Urinary catheter with cloudy urine collectionimproving. Results & Data Results & Data ([facility]) Vital Signs (Past 12 Hours) Vital Signs Temp Pulse Pulse Resp BP BP BP 03/09/21 15:23 77 03/09/21 15:02 36.9 C 60 20 127/59 L 03/09/21 11:11 36.9 C 65 20 113/68 03/09/21 09:30 86/48 L 92/54 L 03/09/21 08:00 85 03/09/21 07:43 37.0 C 60 20 115/55 L Pulse Ox 03/09/21 15:23 03/09/21 15:02 93 03/09/21 11:11 94 03/09/21 09:30 03/09/21 08:00 03/09/21 07:43 93 (1) Catheter-associated urinary tract infection Encounter type: initial encounter Indwelling urinary catheter type: indwelling urethral catheter Qualified Code(s): T83.511A - Infection and inflammatory reaction due to indwelling urethral catheter, initial encounter; N39.0 - Urinary tract infection, site not specified
[2021-03-10] MEDS: CEFEPIME 2,000 MG in SYRINGE 0 ML IV SCH (06:30)
[2021-03-10] MEDS: LEVOTHYROXINE SODIUM 100 MCG TABLET PO SCH (06:53)
[2021-03-10] MEDS: LINACLOTIDE 145 MCG CAPSULE PO SCH (06:53)
[2021-03-10 07:26] LABS: BUN Creatinine Ratio 26.7 (10-20); Calcium 11.4 mg/dl (8.5-10.1); Creatinine Clr Calc Pharmacy 30.7 ml/min; Est GFR (African American) 41.1 ml/min; Est GFR (Non-African American) 35.4 ml/min; Magnesium 2.1 mg/dl (1.8-2.4); Potassium 3.3 mmol/L (3.5-5.1)
[2021-03-10] MEDS: CHOLECALCIFEROL 1,000 UNITS 25 MCG TAB PO SCH (08:36)
[2021-03-10] MEDS: HEPARIN SOD 5,000 UNIT/0.5 ML VIAL SQ SCH ×2 (08:36→20:33)
[2021-03-10] MEDS: METHENAMINE HIPPURATE 1 GM TAB PO SCH ×2 (08:36→20:36)
[2021-03-10] MEDS: LORATADINE 10 MG TAB PO SCH (08:37)
[2021-03-10] MEDS: POTASSIUM CHLORIDE CRTAB 20 MEQ TABCR PO SCH (08:38)
[2021-03-10] MEDS: METOPROLOL TARTRATE 25 MG TAB PO SCH ×2 (08:41→20:34)
[2021-03-10] MEDS: MULTIVITAMIN TAB PO SCH (08:41)
[2021-03-10] MEDS: levETIRAcetam 250 MG TAB PO SCH ×2 (08:41→20:31)
[2021-03-10] MEDS: lamoTRIgine 100 MG TAB PO SCH ×2 (08:41→20:35)
[2021-03-10] MEDS: lamoTRIgine 25 MG TAB PO SCH ×2 (08:42→20:32)
[2021-03-10] MEDS: FLUTICASONE PROPIONATE NA SPR 16 GM BTL NAE SCH (08:42)
[2021-03-10] MEDS: POLYETHYLENE (MIRALAX) 17 GM PACK PO SCH ×2 (08:47→20:45)
[2021-03-10] MEDS: ASPIRIN 81 MG CHEW PO SCH (08:48)
[2021-03-10] MEDS: FUROSEMIDE 80 MG TAB PO SCH (08:49)
[2021-03-10 12:34] LABS: Cdiff Antigen Positive
[2021-03-10 12:39] LABS: Cdiff Toxin A+B Positive Cdiff Toxin (Negative)
[2021-03-10] MEDS: FIDAXOMICIN 200 MG TAB PO SCH ×2 (15:12→20:45)
[2021-03-10] MEDS ORDERED: POTASSIUM CHLORIDE CRTAB 20 MEQ TABCR PO ONE (15:51)
[2021-03-10] MEDS: NSS + 20MEQ KCL 20 MEQ/1,000 ML BAG IV SCH (16:59)
--- NOTE | 2021-03-10 19:23 | Hospitalist Progress Note ---
Date of Service March 10, 2021 delayed entry date of service noted above Assessment & Plan (1) Metabolic encephalopathy: (2) Catheter-associated urinary tract infection: (3) Complicated UTI (urinary tract infection): Plan: per Dr. 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 Last Covid vaccine was in July. she uses 2 L oxygen at facility. She does have wet cough at baseline, no increase in the frequency and nature of the cough lately. Per the caregiver at the facility, she is not aware of the living will about the patient. Patient is nonverbal. She is being managed for the following: Metabolic encephalopathy UTI ruled out per Dr. 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 Patient's urine analysis was suggestive of UTI Patient has history of Proteus and Pseudomonas infection in the past Urine culture: negative Blood culture: negative IV antibiotics discontinued mental status improved- appears to be returning to baseline monitor Dietitian consulted for recommendationclear liquid, advance to pured diet when able. Assist with feeding until she is able, feed only when awake and alert. Low threshold for speech eval. Nutrition supplement. C diff Colitis diarrhea improving continue Fidaxomicin Day 07/03 continue IV NSS Abnormal imaging findings per Dr. Grimes's notes: Admitting CTAP: Stable significant dilatation of the rectosigmoid colon measuring up to 10 cm in diameter which is unchanged since prior. Redemonstration of multiple calculi within a collapsed urinary bladder. Fibrotic changes and volume loss in the right lung slightly worsened since prior with questionable nodule within the right lower lobe. Recommend follow-up CT chest without IV contrast on an outpatient basis. CXR: Possible pulmonary edema and atelectasis/scaring at the left lower lung. Redemonstration of volume loss of the right hemithorax. -- Patient has chronic ileus and chronic urinary calculi, patient is on chronic Alvarado catheter. Stable at baseline. Seizure disorder: -- Continue home medication Lamictal and Keppra Chronic constipation Admitting CTAP: See above TSH WNL. Moving bowel. Cerebral palsy Intellectual disability Mostly nonverbal except for a few words, wheelchair-bound, can feed herself and alert and at baseline CHF home Lasix Interstitial lung disease Imaging: See above At baseline oxygen which is 2 L at facility. DVT prophylaxis: Subcutaneous Lovenox CODE STATUS: Full Disposition:assisted living resident Admission and Anticipated Discharge Date Admission Date: March 06, 2021 Subjective follow up for metabolic encephalopathy, etc seen resting in bed, comfortable not in distress smiling, alert no signs of pain, dyspnea (+) diarrhea appetite good per RN no other issues Review of Systems Review of Systems: all noted and negative except for above Physical Exam Physical Exam: General- non verbal, alert, not in distress, breathing with no effort or accessory muscle use Eyes- anicteric Neck- no JVD Lungs- clear BS bilaterally, no rales/wheezes Heart- normal rate, regular rhythm; no murmurs Abdomen- normal bowel sounds, nondistended, soft, nontender Extremities- no pretibial edema, no calf tenderness Neuro- alert; no new gross focal neurologic deficits Skin- warm & dry Results & Data Results & Data ([facility]) Vital Signs (Past 12 Hours) Vital Signs Temp Pulse Pulse Resp BP Pulse Ox 03/10/21 16:00 85 03/10/21 15:02 36.8 C 56 L 20 98/62 L 93 03/10/21 12:01 37.1 C 61 20 107/66 94 03/10/21 09:30 67 03/10/21 08:13 36.7 C 71 20 129/89 95 all noted and reviewed including below (1) Catheter-associated urinary tract infection Encounter type: initial encounter Indwelling urinary catheter type: indwelling urethral catheter Qualified Code(s): T83.511A - Infection and inflammatory reaction due to indwelling urethral catheter, initial encounter; N39.0 - Urinary tract infection, site not specified
[2021-03-11] MEDS: NSS + 20MEQ KCL 20 MEQ/1,000 ML BAG IV SCH ×2 (03:01→13:10)
[2021-03-11] MEDS: LEVOTHYROXINE SODIUM 100 MCG TABLET PO SCH (05:46)
[2021-03-11] MEDS: LINACLOTIDE 145 MCG CAPSULE PO SCH (05:48)
[2021-03-11] MEDS: FIDAXOMICIN 200 MG TAB PO SCH ×2 (08:34→21:00)
[2021-03-11] MEDS: ASPIRIN 81 MG CHEW PO SCH (08:34)
[2021-03-11] MEDS: lamoTRIgine 25 MG TAB PO SCH ×2 (08:35→20:53)
[2021-03-11] MEDS: POTASSIUM CHLORIDE CRTAB 20 MEQ TABCR PO SCH (08:35)
[2021-03-11] MEDS: levETIRAcetam 250 MG TAB PO SCH ×2 (08:35→20:52)
[2021-03-11] MEDS: FLUTICASONE PROPIONATE NA SPR 16 GM BTL NAE SCH (08:36)
[2021-03-11] MEDS: lamoTRIgine 100 MG TAB PO SCH ×2 (08:36→20:54)
[2021-03-11] MEDS: METHENAMINE HIPPURATE 1 GM TAB PO SCH ×2 (08:37→20:53)
[2021-03-11] MEDS: HEPARIN SOD 5,000 UNIT/0.5 ML VIAL SQ SCH ×2 (08:37→20:47)
[2021-03-11] MEDS: MULTIVITAMIN TAB PO SCH (08:37)
[2021-03-11] MEDS: CHOLECALCIFEROL 1,000 UNITS 25 MCG TAB PO SCH (08:38)
[2021-03-11] MEDS: METOPROLOL TARTRATE 25 MG TAB PO SCH ×2 (08:38→20:51)
[2021-03-11] MEDS: LORATADINE 10 MG TAB PO SCH (08:38)
[2021-03-11] MEDS: POLYETHYLENE (MIRALAX) 17 GM PACK PO SCH ×2 (08:39→20:47)
[2021-03-11 09:31] LABS: Creatinine Clr Calc Pharmacy 28.3 ml/min; Est GFR (African American) 37.6 ml/min; Est GFR (Non-African American) 32.4 ml/min
[2021-03-11 11:08] LABS: BUN Creatinine Ratio 28.8 (10-20); Calcium 10.6 mg/dl (8.5-10.1); Creatinine Clr Calc Pharmacy 28.5 ml/min; Est GFR (African American) 37.9 ml/min; Est GFR (Non-African American) 32.7 ml/min; Magnesium 2.2 mg/dl (1.8-2.4); Potassium 4.2 mmol/L (3.5-5.1)
[2021-03-11] MEDS: DEXTROSE 5% 1,000 ML IV SCH (13:09)
--- NOTE | 2021-03-11 17:07 | Hospitalist Progress Note ---
Date of Service March 11, 2021 Assessment & Plan (1) Metabolic encephalopathy: (2) Catheter-associated urinary tract infection: (3) Complicated UTI (urinary tract infection): Plan: per Dr. 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 Last Covid vaccine was in July. she uses 2 L oxygen at facility. She does have wet cough at baseline, no increase in the frequency and nature of the cough lately. Per the caregiver at the facility, she is not aware of the living will about the patient. Patient is nonverbal. She is being managed for the following: Metabolic encephalopathy UTI ruled out per Dr. 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 Patient's urine analysis was suggestive of UTI Patient has history of Proteus and Pseudomonas infection in the past Urine culture: negative Blood culture: negative IV antibiotics discontinued mental status improved- mostly back to baseline monitor Dietitian consulted for recommendationclear liquid, advance to pured diet when able. Assist with feeding until she is able, feed only when awake and alert. Low threshold for speech eval. Nutrition supplement. C diff Colitis diarrhea improving continue Fidaxomicin Day 08/03 continue IV NSS Abnormal imaging findings per Dr. Grimes's notes: Admitting CTAP: Stable significant dilatation of the rectosigmoid colon measuring up to 10 cm in diameter which is unchanged since prior. Redemonstration of multiple calculi within a collapsed urinary bladder. Fibrotic changes and volume loss in the right lung slightly worsened since prior with questionable nodule within the right lower lobe. Recommend follow-up CT chest without IV contrast on an outpatient basis. CXR: Possible pulmonary edema and atelectasis/scaring at the left lower lung. Redemonstration of volume loss of the right hemithorax. -- Patient has chronic ileus and chronic urinary calculi, patient is on chronic Alvarado catheter. Stable at baseline. Seizure disorder: -- Continue home medication Lamictal and Keppra Chronic constipation Admitting CTAP: See above TSH WNL. Moving bowel. Cerebral palsy Intellectual disability Mostly nonverbal except for a few words, wheelchair-bound, can feed herself and alert and at baseline CHF home Lasix Interstitial lung disease Imaging: See above At baseline oxygen which is 2 L at facility. DVT prophylaxis: Subcutaneous Lovenox CODE STATUS: Full Disposition: Likely discharge to the facility in next 1 to 2 days unless no new issues arises. CM to assist with DC planning back to assisted living. Admission and Anticipated Discharge Date Admission Date: March 06, 2021 Subjective ff up for Encephalopathy, C diff colitis etc seen resting in bed, comfortable smiling not in distress less diarrhea today per RN eating well no other signs noted per RN no other issues Review of Systems Review of Systems: all noted and negative except for above Physical Exam Physical Exam: General- alert, not in distress, breathing with no effort or accessory muscle use Eyes- anicteric Neck- no JVD Lungs- clear breath sounds bilaterally, no rales/wheezes Heart- normal rate, regular rhythm; no murmurs Abdomen- normal bowel sounds, nondistended, soft, nontender Extremities- no pretibial edema, no calf tenderness Neuro- alert, no new gross focal neurologic deficits Skin- warm & dry Results & Data Results & Data ([facility]) Vital Signs (Past 12 Hours) Vital Signs Temp Pulse Pulse Resp BP Pulse Ox 03/11/21 16:12 36.6 C 75 16 121/53 L 96 03/11/21 15:47 63 03/11/21 11:05 36.8 C 60 16 131/78 100 03/11/21 09:00 90 03/11/21 08:28 37.5 C 81 16 110/66 99 all noted and reviewed including below (1) Catheter-associated urinary tract infection Encounter type: initial encounter Indwelling urinary catheter type: indwelling urethral catheter Qualified Code(s): T83.511A - Infection and inflammatory reaction due to indwelling urethral catheter, initial encounter; N39.0 - Urinary tract infection, site not specified
[2021-03-11] MEDS: ACETAMINOPHEN 325 MG TAB PO PRN (21:00)
[2021-03-12] MEDS: DEXTROSE 5% 1,000 ML IV SCH ×2 (01:42→15:02)
[2021-03-12] MEDS: LEVOTHYROXINE SODIUM 100 MCG TABLET PO SCH (06:18)
[2021-03-12] MEDS: LINACLOTIDE 145 MCG CAPSULE PO SCH (06:18)
[2021-03-12 08:30] LABS: Basophils # (auto) 0.03 K/uL (0-0.2); Basophils % (auto) 0.7 %; Eosinophils # (auto) 0.28 K/uL (0-0.5); Eosinophils % (auto) 6.4 %; Hematocrit (blood only) 32.3 % (37-47); Hemoglobin 9.9 g/dL (12.0-16.0); Lymphocytes # (auto) 1.58 K/uL (1.2-3.4); Lymphocytes % (auto) 36.2 %; Mean Corpuscular Hemoglobin 28.3 pg (25-34); Mean Corpuscular Hgb Conc 30.7 g/dL (32-36); Mean Corpuscular Volume 92.3 fL (80-100); Mean Platelet Volume 11.4 fL (7.4-10.4); Monocytes # (auto) 0.52 K/uL (0.11-0.59); Monocytes % (auto) 11.9 %; Neutrophils # (auto) 1.96 K/uL (1.4-6.5); Neutrophils % (auto) 44.8 %; Platelet Count 195 K/uL (130-400); RDW Coefficient of Variation 14.9 % (11.5-14.5); RDW Standard Deviation 50.4 fL (36.4-46.3); White Blood Count 4.37 K/uL (4.8-10.8)
[2021-03-12 08:51] LABS: BUN Creatinine Ratio 27.5 (10-20); Calcium 10.3 mg/dl (8.5-10.1); Creatinine Clr Calc Pharmacy 25.8 ml/min; Est GFR (African American) 32.9 ml/min; Est GFR (Non-African American) 28.4 ml/min
[2021-03-12] MEDS: levETIRAcetam 250 MG TAB PO SCH (09:06)
[2021-03-12] MEDS: MULTIVITAMIN TAB PO SCH (09:06)
[2021-03-12] MEDS: POTASSIUM CHLORIDE CRTAB 20 MEQ TABCR PO SCH (09:06)
[2021-03-12] MEDS: FIDAXOMICIN 200 MG TAB PO SCH ×2 (09:07→20:50)
[2021-03-12] MEDS: METOPROLOL TARTRATE 25 MG TAB PO SCH ×2 (09:07→20:44)
[2021-03-12] MEDS: METHENAMINE HIPPURATE 1 GM TAB PO SCH ×2 (09:07→20:49)
[2021-03-12] MEDS: lamoTRIgine 25 MG TAB PO SCH ×2 (09:07→20:47)
[2021-03-12] MEDS: ASPIRIN 81 MG CHEW PO SCH (09:08)
[2021-03-12] MEDS: LORATADINE 10 MG TAB PO SCH (09:08)
[2021-03-12] MEDS: lamoTRIgine 100 MG TAB PO SCH ×2 (09:08→20:47)
[2021-03-12] MEDS: CHOLECALCIFEROL 1,000 UNITS 25 MCG TAB PO SCH (09:08)
[2021-03-12] MEDS: FLUTICASONE PROPIONATE NA SPR 16 GM BTL NAE SCH (09:09)
[2021-03-12] MEDS: POLYETHYLENE (MIRALAX) 17 GM PACK PO SCH ×2 (09:10→20:48)
[2021-03-12] MEDS: HEPARIN SOD 5,000 UNIT/0.5 ML VIAL SQ SCH ×2 (09:10→20:46)
--- NOTE | 2021-03-12 16:45 | Hospitalist Progress Note ---
Date of Service March 12, 2021 Assessment & Plan (1) Metabolic encephalopathy: (2) Catheter-associated urinary tract infection: (3) Complicated UTI (urinary tract infection): Plan: per Dr. 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 Last Covid vaccine was in July. she uses 2 L oxygen at facility. She does have wet cough at baseline, no increase in the frequency and nature of the cough lately. Per the caregiver at the facility, she is not aware of the living will about the patient. Patient is nonverbal. She is being managed for the following: Metabolic encephalopathy UTI ruled out per Dr. 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 Patient's urine analysis was suggestive of UTI Patient has history of Proteus and Pseudomonas infection in the past Urine culture: negative Blood culture: negative IV antibiotics discontinued mental status improved- mostly back to baseline monitor Dietitian consulted for recommendationclear liquid, advance to pured diet when able. Assist with feeding until she is able, feed only when awake and alert. Low threshold for speech eval. Nutrition supplement. C diff Colitis diarrhea improving continue Fidaxomicin Day 08/31 continue IV NSS Hypernatremia Acute renal failure likely secondary to dehydration Sodium improved 1 51-1 48 Continue D5 water Creatinine increased from 1.4-1.7 Baseline creatinine 1.1 We will consult nephrology Abnormal imaging findings per Dr. Grimes's notes: Admitting CTAP: Stable significant dilatation of the rectosigmoid colon measuring up to 10 cm in diameter which is unchanged since prior. Redemonstration of multiple calculi within a collapsed urinary bladder. Fibrotic changes and volume loss in the right lung slightly worsened since prior with questionable nodule within the right lower lobe. Recommend follow-up CT chest without IV contrast on an outpatient basis. CXR: Possible pulmonary edema and atelectasis/scaring at the left lower lung. Redemonstration of volume loss of the right hemithorax. -- Patient has chronic ileus and chronic urinary calculi, patient is on chronic Alvarado catheter. Stable at baseline. Seizure disorder: -- Continue home medication Lamictal and Keppra Reduce Keppra to 500 mg twice daily due to acute renal failure Chronic constipation Admitting CTAP: See above TSH WNL. Moving bowel. Cerebral palsy Intellectual disability Mostly nonverbal except for a few words, wheelchair-bound, can feed herself and alert and at baseline CHF Hold Lasix Interstitial lung disease Imaging: See above At baseline oxygen which is 2 L at facility. DVT prophylaxis: Heparin subcutaneous CODE STATUS: Full Disposition: Likely discharge to the facility in next 1 to 2 days unless no new issues arises. CM to assist with DC planning back to assisted living. Admission and Anticipated Discharge Date Admission Date: March 06, 2021 Subjective Follow-up for all mental status, C. difficile colitis, etc. Seen resting in bed, sitting up, comfortable, sleeping Mostly drowsy but awakens with tactile stimuli No signs of pain, respiratory distress No diarrhea since yesterday per GUEST LAUNDRY ATTENDANT staff Appetite is good No other symptoms per GUEST LAUNDRY ATTENDANT/staff nurse anesthetist Review of Systems Review of Systems: all noted and negative except for above Physical Exam Physical Exam: General-not in distress, breathing with no effort or accessory muscle use Eyes- anicteric Neck- no JVD Lungs- clear breath sounds, no crackles no wheezing, bilaterally Heart- normal rate, regular rhythm; no murmurs Abdomen- normal bowel sounds, nondistended, soft, nontender Extremities- no pretibial edema, no calf tenderness Neuro-no new gross focal neurologic deficits Skin- warm & dry Results & Data Results & Data ([facility]) Vital Signs (Past 12 Hours) Vital Signs Temp Pulse Pulse Resp BP Pulse Ox 03/12/21 11:37 36.8 C 66 16 92/50 L 99 03/12/21 08:19 37.4 C 47 L 16 103/56 L 100 03/12/21 07:30 91 H all noted and reviewed including below (1) Catheter-associated urinary tract infection Encounter type: initial encounter Indwelling urinary catheter type: indwelling urethral catheter Qualified Code(s): T83.511A - Infection and inflammatory reaction due to indwelling urethral catheter, initial encounter; N39.0 - Urinary tract infection, site not specified
--- NOTE | 2021-03-12 19:41 | Consultation Report ---
NEPHROLOGY CONSULTATION NOTE DATE OF CONSULTATION: 03/12/2021. REASON FOR CONSULTATION: Hypernatremia. HISTORY OF PRESENT ILLNESS: The patient is a 75-year-old female with cerebral palsy, intellectual im pairment, chronic diastolic congestive heart failure, interstitial lung disease on oxygen, history of seizure disorder as well as multiple other medical problems. She is a [facility]. She is not eating and drinking. She is currently admitted with encephalopathy an d catheter-associated urinary tract infection. I have been consulted for hypernatremia. Serum sodiu m was 151 yesterday. She is currently getting D5 water and with that serum sodium improved a little bit and is down to 148, but she also has acute renal failure with creatinine rising to 1.7 from basel ine of 0.8. Patient is nonverbal. Her blood pressure is still somewhat low. PAST MEDICAL AND SURGICAL HISTORY: Includes cerebral palsy, chronic indwelling Alvarado catheter, chron ic obstructive pulmonary disease on chronic oxygen, colon abnormality. Alvarado catheter in place, hist ory of DVT, history of recurrent UTI, hypothyroidism, intellectual disability, history of proctitis, history of pulmonary fibrosis, history of seizure disorder. Surgical history cystoscopy, total right hip arthroplasty. FAMILY HISTORY: No renal disease in the family. SOCIAL HISTORY: No smoking, no alcohol. Patient is nonverbal. She is a long-term resident of [facility]. She uses oxygen and she is wheelchair bound. ALLERGIES: List reviewed. Does not have anything. MEDICATIONS: Home medication list in the hospital as well as in the prison was reviewed in ful l detail and is as per the reconciliation list. Patient is not on any diuretics at this time, but lore alfaro was on Lasix 80 mg daily at home. REVIEW OF SYSTEMS: Could not obtain as the patient is nonverbal and did not respond even to gentle p ainful stimulus. PHYSICAL EXAMINATION: GENERAL: Elderly white female who appears chronically ill. She is nonverbal, did not answer any que stions. VITAL SIGNS: Blood pressure is 92/50, pulse rate 66, temperature 36.8, 99% on room air. Mucous memb robert is dry. NECK: Supple. No jugular venous distention. CHEST: Bilateral decreased breath sounds but poor quality examination secondary to lack of inspirato ry effort. CARDIOVASCULAR: S1 and S2, regular. ABDOMEN: Soft, nontender. EXTREMITIES: Show no edema. LABORATORY TEST: Reviewed. This morning, sodium 148, potassium 4.0, chloride 120, BUN 48, creatinin e is still rising and is up to 1.73 from baseline of 0.8, calcium 10.3, it was high few days ago at 1 1.4, magnesium 2.2, hemoglobin 9.9, WBC count 4.3. Chest x-ray done few days ago shows possible pulm onary edema versus atelectasis, scarring at the left lower lung. ASSESSMENT AND PLAN: A 75-year-old female with cerebral palsy who is essentially nonverbal at [facility], admitted with metabolic encephalopathy related with complicated urinary tract infection. At this time, I have been consulted for electrolyte management and acute renal failure. 1. Acute renal failure, this is prerenal in etiology secondary to inadequate fluid intake. I would increase the IV hydration rate to 100 mL per hour. We will use D5 water and that should help correct the hypernatremia also. 2. Electrolyte disorder. The patient has hypernatremia as well as hypercalcemia both electrolyte ab normality are improving at this time. I would hold the vitamin D for now given hypercalcemia. We lillie l check a vitamin D level and if it is high, we will stop it. Continue IV hydration as that should h elp with the hypercalcemia also. No further workup is needed for the hypernatremia as it is related with free water deficit because of inadequate oral intake and hydration. Job ID: [id number]
[2021-03-12] MEDS: ACETAMINOPHEN 325 MG TAB PO PRN (20:50)
[2021-03-13] MEDS: DEXTROSE 5% 1,000 ML IV SCH ×3 (01:24→12:00)
[2021-03-13] MEDS: LINACLOTIDE 145 MCG CAPSULE PO SCH (05:47)
[2021-03-13] MEDS: LEVOTHYROXINE SODIUM 100 MCG TABLET PO SCH (05:48)
[2021-03-13 08:23] LABS: BUN Creatinine Ratio 29.2 (10-20); Calcium 9.7 mg/dl (8.5-10.1); Creatinine Clr Calc Pharmacy 31.7 ml/min; Est GFR (African American) 41.4 ml/min; Est GFR (Non-African American) 35.7 ml/min; Potassium 3.8 mmol/L (3.5-5.1)
[2021-03-13] MEDS: ASPIRIN 81 MG CHEW PO SCH (08:46)
[2021-03-13] MEDS: FLUTICASONE PROPIONATE NA SPR 16 GM BTL NAE SCH (08:47)
[2021-03-13] MEDS: HEPARIN SOD 5,000 UNIT/0.5 ML VIAL SQ SCH ×2 (08:47→20:25)
[2021-03-13] MEDS: lamoTRIgine 100 MG TAB PO SCH ×2 (08:47→20:16)
[2021-03-13] MEDS: METHENAMINE HIPPURATE 1 GM TAB PO SCH ×2 (08:48→20:20)
[2021-03-13] MEDS: levETIRAcetam 500 MG TAB PO SCH ×2 (08:48→20:18)
[2021-03-13] MEDS: METOPROLOL TARTRATE 25 MG TAB PO SCH ×2 (08:48→20:14)
[2021-03-13] MEDS: LORATADINE 10 MG TAB PO SCH (08:48)
[2021-03-13] MEDS: lamoTRIgine 25 MG TAB PO SCH ×2 (08:48→20:15)
[2021-03-13] MEDS: MULTIVITAMIN TAB PO SCH (08:49)
[2021-03-13] MEDS: POTASSIUM CHLORIDE CRTAB 20 MEQ TABCR PO SCH (08:49)
[2021-03-13] MEDS: FIDAXOMICIN 200 MG TAB PO SCH ×2 (09:09→20:08)
[2021-03-13] MEDS: POLYETHYLENE (MIRALAX) 17 GM PACK PO SCH ×2 (10:35→20:19)
--- NOTE | 2021-03-13 12:24 | Palliative Care Progress Note ---
Date of Service March 13, 2021 Assessment & Plan (1) Altered mental status: Plan: Has had functional decline and is being considered to move to more medically oriented housing through [facility]. (2) Palliative care encounter: Plan: I talked again with Jennifer Miller, who is her long time caseworker protective services. They had a zoom meeting to help clarify goals of care for Minerva. Her brother and sister in law, Barry and Joyce Sanchez, are her surrogate decision makers, relying on assistance and insight from Jennifer and other staff at [facility]. The consensus at this time is that Minerva would be full code, full treatment, including intubation. However, they would not want fpc ventilator support. (3) Complicated UTI (urinary tract infection): (4) Seizure disorder: (5) Intellectual disability: (6) Pulmonary fibrosis: (7) Colitis: Admission and Anticipated Discharge Date Admission Date: March 06, 2021 Subjective Sleeping but opens eyes when called. Does not respond to questions. Appears comfortable. Review of Systems Review of Systems: Unobtainable due to cognitive status PainAD 0/3 Gustine Symptom Assessment Scale 30% Physical Exam Constitutional: no acute distress Respiratory: normal respiratory effort; no labored breathing Cardiovascular: Extremities: + edema Gastrointestinal (Abdomen): soft, nontender Musculoskeletal: upper extremity contractures Neurologic: Speech / Cognition: + abnormal cognition Results & Data ([facility]) Vital Signs (Past 12 Hours) Vital Signs Temp Pulse Pulse Pulse Resp BP BP 03/13/21 11:06 97.9 F 66 18 95/67 L 03/13/21 08:06 65 03/13/21 07:55 97.9 F 68 20 118/60 03/13/21 03:00 97.9 F 63 18 BP Pulse Ox 03/13/21 11:06 97 03/13/21 08:06 03/13/21 07:55 99 03/13/21 03:00 153/78 H 100 PG Care Time/CCT Total # of Minutes Spent Total Time Spent with Patient: Total time spent is greater than 50% in coordination of care (as documented) at patient's floor/unit and/or counseling patient: Coding Level of Care Code 30788 Subseq Hosp Care Lvl 2 Diagnoses Altered mental status R41.82 Altered mental status type: unspecified Palliative care encounter Z51.5 Complicated UTI (urinary tract infection) N39.0 Seizure disorder G40.909 Intellectual disability F79 Pulmonary fibrosis J84.10 Colitis K52.9 (1) Altered mental status Altered mental status type: unspecified Qualified Code(s): R41.82 - Altered mental status, unspecified
--- NOTE | 2021-03-13 13:03 | Hospitalist Progress Note ---
Date of Service March 13, 2021 Assessment & Plan (1) Metabolic encephalopathy: (2) Catheter-associated urinary tract infection: (3) Complicated UTI (urinary tract infection): Plan: per Dr. 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 Last Covid vaccine was in July. she uses 2 L oxygen at facility. She does have wet cough at baseline, no increase in the frequency and nature of the cough lately. Per the caregiver at the facility, she is not aware of the living will about the patient. Patient is nonverbal. She is being managed for the following: Metabolic encephalopathy UTI ruled out per Dr. 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 Patient's urine analysis was suggestive of UTI Patient has history of Proteus and Pseudomonas infection in the past Urine culture: negative Blood culture: negative IV antibiotics discontinued as cultures are negative mental status improved- mostly back to baseline monitor Dietitian consulted for recommendationclear liquid, advance to pured diet when able. Assist with feeding until she is able, feed only when awake and alert. Low threshold for speech eval. Nutrition supplement. C diff Colitis diarrhea improving continue Fidaxomicin Day 10/01 Hypernatremia Acute renal failure likely secondary to dehydration Sodium improved 1 51-1 48, now 140 after being given D5 water Continue D5 water at 75 cc/h Creatinine increased from 1.4-1.7 Baseline creatinine 1.1 Nephrology consulted D5 water given Creatinine now 1.4 Continue D5 water but reduce to 75 cc/h Abnormal imaging findings per Dr. Grimes's notes: Admitting CTAP: Stable significant dilatation of the rectosigmoid colon measuring up to 10 cm in diameter which is unchanged since prior. Redemonstration of multiple calculi within a collapsed urinary bladder. Fibrotic changes and volume loss in the right lung slightly worsened since prior with questionable nodule within the right lower lobe. Recommend follow-up CT chest without IV contrast on an outpatient basis. CXR: Possible pulmonary edema and atelectasis/scaring at the left lower lung. Redemonstration of volume loss of the right hemithorax. -- Patient has chronic ileus and chronic urinary calculi, patient is on chronic Alvarado catheter. Stable at baseline. Seizure disorder: -- Continue home medication Lamictal and Keppra Reduce Keppra to 500 mg twice daily due to acute renal failure Continue to monitor renal function and adjust Keppra accordingly Chronic constipation Admitting CTAP: See above TSH WNL. Moving bowel. Cerebral palsy Intellectual disability Mostly nonverbal except for a few words, wheelchair-bound, can feed herself and alert and at baseline CHF Hold Lasix Interstitial lung disease Imaging: See above At baseline oxygen which is 2 L at facility. DVT prophylaxis: Heparin subcutaneous CODE STATUS: Full Disposition: Likely discharge to the facility in next 1 to 2 days unless no new issues arises. CM to assist with DC planning back to assisted living. Admission and Anticipated Discharge Date Admission Date: March 06, 2021 Subjective Follow-up for encephalopathy, cellulitis, etc. Seen resting in bed, sleeping but easily awakened Not in distress, no signs of pain or respiratory distress Per RN [place], patient's appetite is great No signs of abdominal pain Had one loose bowel movement overnight, none yet this morning No other signs or symptoms noted Review of Systems Review of Systems: all noted and negative except for above Physical Exam Physical Exam: General-sleepy but easily awakened, not in distress, breathing with no effort or accessory muscle use Eyes- anicteric Neck- no JVD Lungs- Clear to auscultation bilaterally Heart- normal rate, regular rhythm; no murmurs Abdomen- normal bowel sounds, nondistended, soft, nontender Extremities-mild pretibial edema, no calf tenderness Neuro- alert, oriented x 0; no new gross focal neurologic deficits Skin- warm & dry Results & Data Results & Data ([facility]) Vital Signs (Past 12 Hours) Vital Signs Temp Pulse Pulse Pulse Resp BP BP 03/13/21 11:06 36.6 C 66 18 95/67 L 03/13/21 08:06 65 03/13/21 07:55 36.6 C 68 20 118/60 03/13/21 03:00 36.6 C 63 18 BP Pulse Ox 03/13/21 11:06 97 03/13/21 08:06 03/13/21 07:55 99 03/13/21 03:00 153/78 H 100 all noted and reviewed including below (1) Catheter-associated urinary tract infection Encounter type: initial encounter Indwelling urinary catheter type: indwelling urethral catheter Qualified Code(s): T83.511A - Infection and inflammatory reaction due to indwelling urethral catheter, initial encounter; N39.0 - Urinary tract infection, site not specified
[2021-03-14] MEDS: DEXTROSE 5% 1,000 ML IV SCH (00:38)
[2021-03-14] MEDS: LEVOTHYROXINE SODIUM 100 MCG TABLET PO SCH (05:43)
[2021-03-14] MEDS: LINACLOTIDE 145 MCG CAPSULE PO SCH (05:43)
[2021-03-14 07:29] LABS: BUN Creatinine Ratio 36.3 (10-20); Creatinine Clr Calc Pharmacy 44.7 ml/min; Est GFR (African American) 63.1 ml/min; Est GFR (Non-African American) 54.4 ml/min
[2021-03-14] MEDS: POTASSIUM CHLORIDE CRTAB 20 MEQ TABCR PO SCH (10:00)
[2021-03-14] MEDS: MULTIVITAMIN TAB PO SCH (10:00)
[2021-03-14] MEDS: METOPROLOL TARTRATE 25 MG TAB PO SCH (10:00)
[2021-03-14] MEDS: METHENAMINE HIPPURATE 1 GM TAB PO SCH (10:01)
[2021-03-14] MEDS: LORATADINE 10 MG TAB PO SCH (10:02)
[2021-03-14] MEDS: lamoTRIgine 25 MG TAB PO SCH (10:03)
[2021-03-14] MEDS: lamoTRIgine 100 MG TAB PO SCH (10:03)
[2021-03-14] MEDS: FIDAXOMICIN 200 MG TAB PO SCH (10:04)
[2021-03-14] MEDS: FLUTICASONE PROPIONATE NA SPR 16 GM BTL NAE SCH (10:04)
[2021-03-14] MEDS: ASPIRIN 81 MG CHEW PO SCH (10:05)
[2021-03-14] MEDS: levETIRAcetam 500 MG TAB PO SCH (10:22)
[2021-03-14] MEDS: POLYETHYLENE (MIRALAX) 17 GM PACK PO SCH (10:40)
[2021-03-14] MEDS: HEPARIN SOD 5,000 UNIT/0.5 ML VIAL SQ SCH (10:41)
--- NOTE | 2021-03-14 11:13 | Hospitalist Progress Note ---
Date of Service March 14, 2021 Assessment & Plan (1) Metabolic encephalopathy: (2) Catheter-associated urinary tract infection: (3) Complicated UTI (urinary tract infection): Plan: Metabolic encephalopathy C. 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 Last Covid vaccine was in July. she uses 2 L oxygen at facility. She does have wet cough at baseline, no increase in the frequency and nature of the cough lately. Per the caregiver at the facility, she is not aware of the living will about the patient. Patient is nonverbal. She is being managed for the following: Metabolic encephalopathy UTI ruled out per Dr. 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 Patient's urine analysis was suggestive of UTI Patient has history of Proteus and Pseudomonas infection in the past Urine culture: negative Blood culture: negative IV antibiotics discontinued as cultures are negative mental status improved- mostly back to baseline Dietitian consulted for recommendation now on pured diet w C diff Colitis Patient developed diarrhea while admitted, now resolved after treatment continue Fidaxomicin Day 5/10 Hypernatremia Acute renal failure likely secondary to dehydration Sodium improved 151 --> 148, now 140 after being given D5 water Creatinine increased from 1.4-1.7 Baseline creatinine 1.1 Nephrology consulted D5 water given Creatinine now 1.0 --Continue to encourage oral fluid intake daily Abnormal imaging findings per Dr. Grimes's notes: Admitting CTAP: Stable significant dilatation of the rectosigmoid colon measuring up to 10 cm in diameter which is unchanged since prior. Redemonstration of multiple calculi within a collapsed urinary bladder. Fibrotic changes and volume loss in the right lung slightly worsened since prior with questionable nodule within the right lower lobe. Recommend follow-up CT chest without IV contrast on an outpatient basis. CXR: Possible pulmonary edema and atelectasis/scaring at the left lower lung. Redemonstration of volume loss of the right hemithorax. -- Patient has chronic ileus and chronic urinary calculi, patient is on chronic Alvarado catheter. Stable at baseline. Seizure disorder: -- Continue home medication Lamictal and Keppra Cerebral palsy Intellectual disability --mostly back to baseline CHF -- Patient euvolemic Hold Lasix for now given recent dehydration from C. difficile colitis Repeat basic metabolic profile in 1 to 2 days Resume Lasix accordingly based on renal function and volume status Interstitial lung disease Imaging: See above At baseline oxygen which is 2 L at facility. DVT prophylaxis: Heparin subcutaneous given CODE STATUS: Full Disposition: Discharge to assisted living today Follow-up with PCP in 1 week Admission and Anticipated Discharge Date Admission Date: March 06, 2021 Subjective Follow-up for encephalopathy, C. difficile colitis, etc. Seen sitting up in bed, sleeping but easily awakened by verbal stimuli Opens eyes, interacts with examiner by holding hands Not in distress, no signs of pain No other symptoms Review of Systems Review of Systems: all noted and negative except for above Physical Exam Physical Exam: General- not in distress,no effort with breathing or accessory muscle use Eyes- anicteric Neck- no JVD Lungs- clear breath sounds bilaterally, no wheezing, no rhonchi noted Heart- normal rate, regular rhythm; no murmurs Abdomen- normal bowel sounds, nondistended, soft, nontender Extremities-trace pretibial edema, no calf tenderness Neuro-no new gross focal neurologic deficits Skin- warm & dry Results & Data Results & Data ([facility]) Vital Signs (Past 12 Hours) Vital Signs Temp Pulse Pulse Pulse Resp BP Pulse Ox 03/14/21 07:00 36.6 C 89 20 128/83 97 03/14/21 04:20 36.8 C 81 20 91/64 L 98 03/14/21 01:07 60 all noted and reviewed including below (1) Catheter-associated urinary tract infection Encounter type: initial encounter Indwelling urinary catheter type: indwelling urethral catheter Qualified Code(s): T83.511A - Infection and inflammatory reaction due to indwelling urethral catheter, initial encounter; N39.0 - Urinary tract infection, site not specified
[2021-03-14 15:33] LABS: Cdiff Antigen Positive; Cdiff Toxin A+B Negative Cdiff Toxin (Negative)
--- NOTE | 2021-04-03 18:29 | Discharge Summary ---
Date of Service April 03, 2021 Admission HPI Per Admitting Provider This is a 75yo F with a PMH of cerebral palsy, intellectual impairment, chronic diastolic congestive heart failure, interstitial lung disease on 2 L nasal cannula O2, history of seizure disorder, hypothyroidism, urinary retention with chronic indwelling Alvarado catheter, recurrent UTIs and on chronic methenamine suppression treatment, history of DVT as per records, history of constipation, HTN and other medical problems listed below who presents with lethargy and concern for infection. The patient is from personal detention and is mostly nonverbal at baseline, speaking few words. Is wheelchair bound. Caregiver at bedside. Patient has been notably more lethargic since yesterday with decreased p.o. intake. Also noted to have lower blood pressure than baseline. History of catheter associated urinary tract infections. Caregiver also noted that urine had strong odor a few days ago and was darker in color. No bright red blood present in collection bag. Was brought into ED for further evaluation. Unable to obtain ROS due to cognitive status. Admission Exam (Per Admitting) Constitutional General Appearance: vitals as above, NAD, sitting up in bed, lethargic, not following verbal commands Head: normocephalic, atraumatic Eyes: normal inspection, PERRL, conjunctivae normal, anicteric sclerae ENT: external ear and nose normal, oropharynx normal Neck: normal visual inspection, trachea midline, no thyromegaly Respiratory: normal respiratory effort, lungs clear to auscultation, no wheeze, rales, rhonchi. No accessory muscle use Cardiovascular: regular rate, rhythm, no murmur, normal peripheral pulses, no BLE edema. Vessels: no JVD Chest: normal inspection of chest Abdomen/GI: hypoactive bowel sounds, soft, nontender, no hepatosplenomegaly : Alvarado catheter Extremities/Musculoskeletal: no cyanosis or clubbing, extremities motor strength 5/5 Neurologic: PERRL, moves all extremities spontaneously Psychiatric: nonverbal at baseline, lethargic Skin: no rashes, normal color, warm/dry Discharge Data Consultations 03/06/21 16:17 ED Decision to Admit Stat 03/08/21 11:52 Consult Palliative Care Routine 03/12/21 09:58 Consult Nephrology Routine Procedures Performed CT abd pelvis IV con only CLINICAL HISTORY: abd pain COMPARISON STUDY: March 31, 2020 TECHNIQUE: A dose lowering technique was utilized adhering to the principles of ALARA. CT DOSE: 855.78 mGy.cm FINDINGS: Evaluation is slightly limited due to mild motion artifact as well as beam hardening artifact from patient's arms. Lower chest: Limited evaluation of lung bases shows extensive fibrotic changes and multiple cystic lesions within right lower lung which shows slight interval worsening since prior study. Previously seen volume loss of the right hemithorax is also worsened since prior.. -7 mm pulmonary nodule is seen within right lower lobe (3/2) and was not definitely seen on prior. Liver: The contrast-enhanced liver is normal in size, contour, and attenuation. There is no intrahepatic biliary ductal dilatation. Gallbladder: Unremarkable. Spleen: Is normal in size. Coarse subcapsular calcifications are again seen. Pancreas: Unremarkable. Adrenal glands: Unremarkable. Kidneys: There is symmetric renal cortical enhancement. The kidneys are normal in size without hydronephrosis.No nephrolithiasis is seen. Pelvic viscera: Urinary bladder is decompressed with Alvarado catheter. Previously seen numerous large bladder calculi are again seen and measure up to 2.8 cm in length. Uterus is not definitely seen, possibly surgically absent. Overall evaluation of the lower pelvis is limited due to beam hardening artifact from right hip prosthetic joint. Bowel: Loops of small bowel are nondilated. Rectum and sigmoid colon are dilated up to 10.5 cm with air-fluid level (3/256). Degree of dilatation is similar to prior study performed on March 31, 2020. Mild diffuse thickening of rectal wall measuring up to 5 mm is also unchanged since recent prior study. Also there is gaseous dilatation of the distal descending colon with few air-fluid level which are in the same level which is usually seen in ileus. Mild thickening of rectal wall could be seen in proctitis. Peritoneum: There is no intraperitoneal free air or abdominal ascites. Vasculature: The abdominal aorta is normal in course and caliber. Adenopathy: None. Skeletal structures: Diffuse osteopenia and multilevel degenerative changes of the spine. Compression fracture deformity of L2 is similar to prior study. Healed compression fracture deformity of the left pubic bone is unchanged since prior. IMPRESSION: 1. Stable significant dilatation of the rectosigmoid colon measuring up to 10 cm in diameter, unchanged since prior. Air-fluid level within loops of distal large bowel likely representing ileus. Follow-up evaluation with [facility] is suggested. 2. Thickening of the rectal wall is again seen, might represent proctitis. 3. Redemonstration of multiple calculi within collapsed urinary bladder. 4. Evaluation of pelvic region is suboptimal due to beam hardening artifact from left hip orthopedic hardware. 5. Fibrotic changes and volume loss within visualized portion of the right lung, slightly worsened since prior. Questionable nodule within the right lower lobe. Further evaluation with CT of the chest without IV contrast on nonemergency basis is suggested. 6. The rest of findings as above. ACT 112: Positive. There are findings on this exam that require communication between the performing entity and the patient following Patient Test Result Information Act ([place] Act 112) guidelines. Hospital Course (1) Metabolic encephalopathy: (2) Catheter-associated urinary tract infection: (3) Complicated UTI (urinary tract infection): (1) Metabolic encephalopathy: (2) Catheter-associated urinary tract infection: (3) Complicated UTI (urinary tract infection): Plan: Metabolic encephalopathy C. difficile colitis 75yo F with a PMH of cerebral palsy, intellectual impairment, chronic diastolic congestive heart failure, interstitial lung disease on 2 L nasal cannula O2, history of seizure disorder, hypothyroidism, urinary retention with chronic indwelling Alvarado catheter, recurrent UTIs and on chronic methenamine suppression treatment, history of DVT as per records, history of constipation, HTN and other medical problems was brought from skilled facility for concerns of not being herself since last weekend [employer]. Last Covid vaccine was in July. she uses 2 L oxygen at facility. She does have wet cough at baseline, no increase in the frequency and nature of the cough lately. Per the caregiver at the facility, she is not aware of the living will about the patient. Patient is nonverbal. She is being managed for the following: Metabolic encephalopathy UTI ruled out per Dr. Grimes's notes: Per the caregiver at the facility, patient was not herself since last 2 - 3 days [employer] Patient is nonverbal, able to communicate needs, needs some assistance with feeding at baseline. Patient's urine analysis was suggestive of UTI Patient has history of Proteus and Pseudomonas infection in the past Urine culture: negative Blood culture: negative IV antibiotics discontinued as cultures are negative mental status improved- mostly back to baseline Dietitian consulted for recommendation now on pured diet w C diff Colitis Patient developed diarrhea while admitted, now resolved after treatment continue Fidaxomicin Day 5/10 Hypernatremia Acute renal failure likely secondary to dehydration Sodium improved 151 --> 148, now 140 after being given D5 water Creatinine increased from 1.4-1.7 Baseline creatinine 1.1 Nephrology consulted D5 water given Creatinine now 1.0 --Continue to encourage oral fluid intake daily Abnormal imaging findings per Dr. Grimes's notes: Admitting CTAP: Stable significant dilatation of the rectosigmoid colon measuring up to 10 cm in diameter which is unchanged since prior. Redemonstration of multiple calculi within a collapsed urinary bladder. Fibrotic changes and volume loss in the right lung slightly worsened since prior with questionable nodule within the right lower lobe. Recommend follow-up CT chest without IV contrast on an outpatient basis. CXR: Possible pulmonary edema and atelectasis/scaring at the left lower lung. Redemonstration of volume loss of the right hemithorax. Please refer to full report in the Ordered Studies section above Further work up, management, and ff up as outpatient -- Patient has chronic ileus and chronic urinary calculi, patient is on chronic Alvarado catheter. Stable at baseline. Seizure disorder: -- Continue home medication Lamictal and Keppra Cerebral palsy Intellectual disability --mostly back to baseline CHF -- Patient euvolemic Hold Lasix for now given recent dehydration from C. difficile colitis Repeat basic metabolic profile in 1 to 2 days Resume Lasix accordingly based on renal function and volume status Interstitial lung disease Imaging: See above At baseline oxygen which is 2 L at facility. DVT prophylaxis: Heparin subcutaneous given CODE STATUS: Full Disposition: Discharge to assisted living today Follow-up with PCP in 1 week
== END 2021-03-14 17:15 | DRG 698 ==
LOC: ED 13:15 → SUATTDRO 16:55 → 2S 16:55 → 2N 03-07 19:51

== ENCOUNTER 2021-04-24 11:44 | Inpatient (IN) ==
[2021-04-24] MEDS ORDERED: SODIUM CHLORIDE 0.9% 1000ML 1,000 ML IV ONE (12:58)
--- NOTE | 2021-04-24 13:07 | Emergency Department Note ---
Impression & Plan Acute alteration in mental status, Acute dehydration, High serum calcium, MAHIN (acute kidney injury) ED Provider Note NAME: MAHESH LEON AGE: 75 SEX: F : 1945 ARRIVES VIA: Ambulance INFORMANT: Patient ED PROVIDER(S): Murray Evans DO CHIEF COMPLAINT: Altered mental status HPI: Patient is a 75-year-old female with a past medical history of seizures, intellectual disability, UTIs, pulmonary fibrosis, CHF, chronic hypoxemia on 2 L nasal cannula presents the ER for altered mental status. Caretakers note that this morning she has been nonverbal. This is completely different than her usual as she is normally talking and Has a sense of humor. History is otherwise limited. She does have a Alvarado in place and she is at the [facility]. Not too sure how long the Alvarado was in place for. Patient has not been complaining of anything prior to today. ROS:Review of systems limited secondary to mentation PAST MEDICAL HISTORY:See Below PAST SURGICAL HISTORY:See Below FAMILY HISTORY:See Below SOCIAL HISTORY:See Below HOME MEDICATIONS:See Below ALLERGIES:See Below VITALS:See Below PHYSICAL EXAMINATION: GENERAL: Sitting up in bed, alert, Intermittently moving head back and forth but not following commands, On 2 L nasal cannula EYE EXAM: normal conjunctiva. PERRL and EOM's grossly intact. OROPHARYNX: no exudate, no erythema, lips, buccal mucosa, and tongue normal and mucous membranes are moist NECK: supple, no nuchal rigidity, no adenopathy, non-tender LUNGS: Clear to auscultation. Normal chest wall mechanics HEART: no murmurs, S1 normal and S2 normal ABDOMEN: abdomen soft, non-tender, normo-active bowel sounds, no masses, no rebound or guarding. : Alvarado in place UPPER EXTREMITIES: upper extremities are grossly normal. LOWER EXTREMITIES: No pitting edema. NEURO EXAM: Awake withdraws lower extremities and upper extremities to pain nonverbal intermittently moans to sternal rub MEDICAL DECISION MAKING: Patient is a 75-year-old female who presents the ER for above-stated complaint. IV was established blood work was obtained.Labs show no significant leukocytosis or anemia. VBG was fairly unremarkable. BMP with a hyponatremia 147 and a creatinine of 1.95 up from baseline of 1. Calcium was significantly elevated at 12.5. Troponin was negative. Lipase unremarkable. UA was contaminated. She was given a dose of IV antibiotics to cover for possible UTI. Covid was negative. CT head was negative. Chest x-ray was unremarkable/not significant change from previous. She was given IV fluids discussed with hospitalist admitted for further work-up. Discussed with Pt concerning signs and symptoms to watch out for. Pt was instructed to follow up with their PCP and discussed with the patient their option to return to the ED at anytime for persistent or worsening symptoms. The appropriate anticipatory guidance and out-patient management, including indications for return to the emergency department, were e xplained at length to the patient and understood. Triage Nursing notes reviewed. Limited review of prior medical records performed Vital Signs: reviewed and remarkable for tachy Differential diagnosis: Differential diagnoses includes but is not limited to toxic, metabolic, infectious, traumatic, cardiac, neurologic, hematologic, psychiatric and inflammatory etiologies. ER treatment provided: See below Diagnostics interpreted by me: ECG: Sinus rhythm rate 87 Poor baseline in the inferior and high lateral leads QTC 457 Cardiac Monitoring: An order was placed for continuous cardiac monitoring. The monitor shows a rate of 90 with sinus rhythm. Laboratory studies: As stated above and show below. Imaging studies: CT Head was negative Chest x-ray was not significantly changed from previous Consultation(s): none Procedures: none Critical Care: None Past Med/Surg History Medical History (Updated 04/24/21 @ 18:14 by Murray Evans DO) Cerebral palsy Chronic indwelling Alvarado catheter Chronic obstructive pulmonary disease oxygen daily Colon abnormality Alvarado catheter in place History of DVT (deep vein thrombosis) "2002- right lower extremity, completed Coumadin therapy" On 01/30/15 10:26 Francine Linda wrote "2002- right lower extremity" History of recurrent UTI (urinary tract infection) Hypothyroidism Intellectual disability Nonverbal On home oxygen therapy 2L N/C at all times Proctitis Pulmonary fibrosis Seizure disorder last was "a couple months ago", "staring type seizures", denies grand mal--on keppra, lamictal and carbamazepine ---follows with Dr. Stoddard Surgical History History of cystoscopy History of total right hip arthroplasty Family History Mother Hypertension Father Heart disease Grandmother Cancer Other Family history unknown Social History Smoking Status: Never smoker Second Hand Exposure: No; Hx Alcohol Use: No Hx Substance Use: No Preferred Language: Burkinan Communication Ability: Unable Pot Sander Required: No Beliefs That Will Affect Care: None marital status: Single Current Living Situation: Other Current Living Situation Comment: Snf How many Children do You have: 0 Feels Safe at Home: Yes Assistive Devices: Oxygen - Continuous Allergies Allergies Allergy/AdvReac Type Severity Reaction Status Date / Time No Known Allergies Allergy Unknown Verified 04/24/21 14:48 Home Meds Home Medications Medication Instructions Recorded Confirmed multivitamin (Multiple Vitamins) 1 tab PO QAM #0 02/27/11 04/24/21 carbamazepine 300 mg 300 mg PO BID #0 06/29/12 04/24/21 capsule,extended release [id number] (Carbatrol) white petrolatum 43 % topical 1 applic TOPICAL BID #0 11/11/14 04/24/21 ointment (Aloe Grant Protectant Ointment) aspirin 81 mg chewable tablet 81 mg PO QAM #0 07/17/17 04/24/21 levothyroxine 100 mcg tablet 100 mcg PO DAILYBB #0 07/17/17 04/24/21 (Synthroid) methenamine hippurate 1 gram 1 g PO BID #0 07/17/17 04/24/21 tablet (Hiprex) lamotrigine 150 mg tablet 300 mg PO BID 06/11/18 04/24/21 (Lamictal) linaclotide 290 mcg capsule 290 mcg PO DAILYBB 06/11/18 04/24/21 (Linzess) fluticasone propionate 50 2 spray INTRANASAL QAM 10/11/18 04/24/21 mcg/actuation nasal spray,suspension (Flonase Allergy Relief) lamotrigine 100 mg tablet 50 mg PO BID 10/11/18 04/24/21 acetaminophen 325 mg tablet 650 mg PO Q4H PRN MDD max 3 gms/24h 01/07/20 04/24/21 (Tylenol) guaifenesin 600 mg tablet, 600 mg PO Q12H PRN 01/07/20 04/24/21 extended release 12 hr (Mucinex) neomycin-bacitracn Zn-polymyx 3.5 1 applic TOPICAL DIRECTED PRN 01/07/20 04/24/21 mg-400 unit-5,000 unit/gram top oint (Triple Antibiotic) dextromethorphan-guaifenesin 10 10 ml PO Q4H PRN 04/04/21 04/24/21 mg-200 mg/5 mL oral liquid furosemide 40 mg tablet 80 mg PO QAM PRN 04/04/21 04/24/21 hydrocortisone 2.5 % topical cream 1 applic NM BID PRN 04/04/21 04/24/21 with perineal applicator (Proctozone-HC) loratadine 10 mg tablet (Claritin) 10 mg PO QAM 04/04/21 04/24/21 polyethylene glycol 3350 17 17 g PO BID PRN 04/04/21 04/24/21 gram/dose oral powder (Miralax) levetiracetam 500 mg tablet 500 mg PO BID 04/24/21 04/24/21 sodium chloride 0.65 % nasal spray 2 spray INTRANASAL BID 04/24/21 04/24/21 aerosol (Saline Mist) Results & Data (ED) Vital Signs Vital Signs - 24 hr 04/24/21 11:46 04/24/21 11:52 04/24/21 12:00 Temperature 36.9 C Temperature Source Rectal Pulse Rate 100 H 94 H 104 H Pulse Rate [Apical] Pulse Rate from SpO2 Sensor 84 Respiratory Rate 18 20 27 H Blood Pressure 121/82 121/82 Blood Pressure [Right Arm] Blood Pressure Mean 95 95 Blood Pressure Mean [Right Arm] Pulse Oximetry 100 95 Oxygen Delivery Method Nasal Cannula Oxygen Flow Rate 2 Sepsis Recent Fever Within 48 Hours No Sepsis New/Unexplained Change in Mental Status N/A Sepsis Action Taken by Nursing No Action Required 04/24/21 12:30 04/24/21 13:00 04/24/21 13:30 Temperature Temperature Source Pulse Rate 88 89 86 Pulse Rate [Apical] Pulse Rate from SpO2 Sensor 87 90 Respiratory Rate 24 24 18 Blood Pressure Blood Pressure [Right Arm] Blood Pressure Mean Blood Pressure Mean [Right Arm] Pulse Oximetry 100 99 85 L Oxygen Delivery Method Oxygen Flow Rate Sepsis Recent Fever Within 48 Hours Sepsis New/Unexplained Change in Mental Status Sepsis Action Taken by Nursing 04/24/21 14:00 04/24/21 14:04 04/24/21 15:24 Temperature Temperature Source Pulse Rate 85 88 Pulse Rate [Apical] 80 Pulse Rate from SpO2 Sensor Respiratory Rate 24 20 35 H Blood Pressure 96/43 L Blood Pressure [Right Arm] 110/66 Blood Pressure Mean 60 Blood Pressure Mean [Right Arm] 80 Pulse Oximetry 99 Oxygen Delivery Method Nasal Cannula Oxygen Flow Rate 2 Sepsis Recent Fever Within 48 Hours Sepsis New/Unexplained Change in Mental Status Sepsis Action Taken by Nursing 04/24/21 15:30 04/24/21 16:00 04/24/21 16:30 Temperature Temperature Source Pulse Rate 89 90 89 Pulse Rate [Apical] Pulse Rate from SpO2 Sensor 96 H 82 Respiratory Rate 24 23 20 Blood Pressure 121/100 Blood Pressure [Right Arm] Blood Pressure Mean 107 Blood Pressure Mean [Right Arm] Pulse Oximetry 96 98 99 Oxygen Delivery Method Nasal Cannula Oxygen Flow Rate 2 Sepsis Recent Fever Within 48 Hours Sepsis New/Unexplained Change in Mental Status Sepsis Action Taken by Nursing Laboratory Data Result diagrams: 04/24/21 13:28 04/24/21 13:28 Lab Results 04/24/21 04/24/21 04/24/21 Range/Units 13:06 13:10 13:10 WBC (4.8-10.8) K/uL RBC (4.2-5.4) M/uL Hgb (12.0-16.0) g/dL Hct (37-47) % MCV (80-100) fL MCH (25-34) pg MCHC (32-36) g/dL RDW Std Deviation (36.4-46.3) fL RDW Coeff of Db (11.5-14.5) % Plt Count (130-400) K/uL MPV (7.4-10.4) fL Immature Gran % (Auto) % Neut % (Auto) % Lymph % (Auto) % Drew % (Auto) % Eos % (Auto) % Baso % (Auto) % Neut # (Auto) (1.4-6.5) K/uL Lymph # (Auto) (1.2-3.4) K/uL Drew # (Auto) (0.11-0.59) K/uL Eos # (Auto) (0-0.5) K/uL Baso # (Auto) (0-0.2) K/uL Immature Gran # (Auto) (0.00-0.02) K/uL Absolute Nucleated RBC (0-0) K/uL Nucleated RBC % (auto) % VBG pH (7.36-7.41) VBG pCO2 (38-50) mmHg VBG pO2 mmHg VBG HCO3 mmol/L VBG O2 Saturation % VBG Base Excess mEq/L Barometric Pressure mm/Hg Sodium (136-145) mmol/L Potassium (3.5-5.1) mmol/L Chloride (98-107) mmol/L Carbon Dioxide (21-32) mmol/L Anion Gap (3-11) BUN (7-18) mg/dl Creatinine (0.6-1.2) mg/dl Est Cr Clr Drug Dosing ml/min Est GFR ( Amer) ml/min Est GFR (Non-Af Amer) ml/min BUN/Creatinine Ratio (10-20) Glucose (70-99) mg/dl Lactate (0.4-2.0) mmol/L Calcium (8.5-10.1) mg/dl Total Bilirubin (0.2-1) mg/dl AST (15-37) U/L ALT (12-78) U/L Alkaline Phosphatase (45-117) U/L Troponin I (0-0.045) ng/ml Total Protein (6.4-8.2) gm/dl Albumin (3.4-5.0) gm/dl Globulin (2.5-4.0) gm/dl Albumin/Globulin Ratio (0.9-2) Lipase (73-393) U/L Urine Color Dark Yellow Urine Appearance Turbid A (Clear) Urine pH 5.5 (4.5-7.5) Ur Specific [place] 1.019 (1.000-1.030) Urine Protein 2+ H (Negative) Urine Glucose (UA) Negative (Negative) Urine Ketones Negative (Negative) Urine Blood 2+ H (Negative) Urine Nitrite Negative (Negative) Urine Bilirubin 1+ H (Negative) Urine Urobilinogen Negative (Negative) Ur Leukocyte Esterase 3+ H (Negative) Urine WBC (Auto) >30 H (0-5) /hpf Urine RBC (Auto) 5-10 H (0-4) /hpf U Hyaline Cast (Auto) 5-10 H (0-5) /lpf U Epithel Cells (Auto) >30 H (0-5) /lpf Urine Bacteria (Auto) Negative (Negative) Ur Renal Epithelial Cell 0-5 (0-5) /lpf Granular Casts 1-5 H (0) /lpf Urine Yeast Budding w/ Hyphae A (None Prsent) COVID-19 Eval Order Covid19 at [facility] SARS-CoV-2 (PCR) NEGATIVE (Negative) 04/24/21 04/24/21 04/24/21 Range/Units 13:28 13:28 13:28 WBC 7.65 (4.8-10.8) K/uL RBC 4.36 (4.2-5.4) M/uL Hgb 12.8 (12.0-16.0) g/dL Hct 39.8 (37-47) % MCV 91.3 (80-100) fL MCH 29.4 (25-34) pg MCHC 32.2 (32-36) g/dL RDW Std Deviation 48.2 H (36.4-46.3) fL RDW Coeff of Db 14.3 (11.5-14.5) % Plt Count 273 (130-400) K/uL MPV 11.2 H (7.4-10.4) fL Immature Gran % (Auto) 0.3 % Neut % (Auto) 68.3 % Lymph % (Auto) 23.9 % Drew % (Auto) 6.9 % Eos % (Auto) 0.5 % Baso % (Auto) 0.1 % Neut # (Auto) 5.22 (1.4-6.5) K/uL Lymph # (Auto) 1.83 (1.2-3.4) K/uL Drew # (Auto) 0.53 (0.11-0.59) K/uL Eos # (Auto) 0.04 (0-0.5) K/uL Baso # (Auto) 0.01 (0-0.2) K/uL Immature Gran # (Auto) 0.02 (0.00-0.02) K/uL Absolute Nucleated RBC 0.03 H (0-0) K/uL Nucleated RBC % (auto) 0.4 % VBG pH 7.40 (7.36-7.41) VBG pCO2 50 (38-50) mmHg VBG pO2 60 mmHg VBG HCO3 30 mmol/L VBG O2 Saturation 91.1 % VBG Base Excess 4.2 mEq/L Barometric Pressure 735.6 mm/Hg Sodium 147 H (136-145) mmol/L Potassium 3.7 (3.5-5.1) mmol/L Chloride 110 H (98-107) mmol/L Carbon Dioxide 25 (21-32) mmol/L Anion Gap 12.0 H (3-11) BUN 81 H (7-18) mg/dl Creatinine 1.95 H (0.6-1.2) mg/dl Est Cr Clr Drug Dosing 22.2 ml/min Est GFR ( Amer) 28.5 ml/min Est GFR (Non-Af Amer) 24.6 ml/min BUN/Creatinine Ratio 41.7 H (10-20) Glucose 117 H (70-99) mg/dl Lactate (0.4-2.0) mmol/L Calcium 12.5 H* (8.5-10.1) mg/dl Total Bilirubin 0.3 (0.2-1) mg/dl AST 16 (15-37) U/L ALT 27 (12-78) U/L Alkaline Phosphatase 131 H (45-117) U/L Troponin I < 0.015 (0-0.045) ng/ml Total Protein 8.9 H (6.4-8.2) gm/dl Albumin 3.8 (3.4-5.0) gm/dl Globulin 5.1 H (2.5-4.0) gm/dl Albumin/Globulin Ratio 0.7 L (0.9-2) Lipase 310 (73-393) U/L Urine Color Urine Appearance (Clear) Urine pH (4.5-7.5) Ur Specific [place] (1.000-1.030) Urine Protein (Negative) Urine Glucose (UA) (Negative) Urine Ketones (Negative) Urine Blood (Negative) Urine Nitrite (Negative) Urine Bilirubin (Negative) Urine Urobilinogen (Negative) Ur Leukocyte Esterase (Negative) Urine WBC (Auto) (0-5) /hpf Urine RBC (Auto) (0-4) /hpf U Hyaline Cast (Auto) (0-5) /lpf U Epithel Cells (Auto) (0-5) /lpf Urine Bacteria (Auto) (Negative) Ur Renal Epithelial Cell (0-5) /lpf Granular Casts (0) /lpf Urine Yeast (None Prsent) COVID-19 Eval Order SARS-CoV-2 (PCR) (Negative) 04/24/21 Range/Units 13:28 WBC (4.8-10.8) K/uL RBC (4.2-5.4) M/uL Hgb (12.0-16.0) g/dL Hct (37-47) % MCV (80-100) fL MCH (25-34) pg MCHC (32-36) g/dL RDW Std Deviation (36.4-46.3) fL RDW Coeff of Db (11.5-14.5) % Plt Count (130-400) K/uL MPV (7.4-10.4) fL Immature Gran % (Auto) % Neut % (Auto) % Lymph % (Auto) % Drew % (Auto) % Eos % (Auto) % Baso % (Auto) % Neut # (Auto) (1.4-6.5) K/uL Lymph # (Auto) (1.2-3.4) K/uL Drew # (Auto) (0.11-0.59) K/uL Eos # (Auto) (0-0.5) K/uL Baso # (Auto) (0-0.2) K/uL Immature Gran # (Auto) (0.00-0.02) K/uL Absolute Nucleated RBC (0-0) K/uL Nucleated RBC % (auto) % VBG pH (7.36-7.41) VBG pCO2 (38-50) mmHg VBG pO2 mmHg VBG HCO3 mmol/L VBG O2 Saturation % VBG Base Excess mEq/L Barometric Pressure mm/Hg Sodium (136-145) mmol/L Potassium (3.5-5.1) mmol/L Chloride (98-107) mmol/L Carbon Dioxide (21-32) mmol/L Anion Gap (3-11) BUN (7-18) mg/dl Creatinine (0.6-1.2) mg/dl Est Cr Clr Drug Dosing ml/min Est GFR ( Amer) ml/min Est GFR (Non-Af Amer) ml/min BUN/Creatinine Ratio (10-20) Glucose (70-99) mg/dl Lactate 2.0 (0.4-2.0) mmol/L Calcium (8.5-10.1) mg/dl Total Bilirubin (0.2-1) mg/dl AST (15-37) U/L ALT (12-78) U/L Alkaline Phosphatase (45-117) U/L Troponin I (0-0.045) ng/ml Total Protein (6.4-8.2) gm/dl Albumin (3.4-5.0) gm/dl Globulin (2.5-4.0) gm/dl Albumin/Globulin Ratio (0.9-2) Lipase (73-393) U/L Urine Color Urine Appearance (Clear) Urine pH (4.5-7.5) Ur Specific [place] (1.000-1.030) Urine Protein (Negative) Urine Glucose (UA) (Negative) Urine Ketones (Negative) Urine Blood (Negative) Urine Nitrite (Negative) Urine Bilirubin (Negative) Urine Urobilinogen (Negative) Ur Leukocyte Esterase (Negative) Urine WBC (Auto) (0-5) /hpf Urine RBC (Auto) (0-4) /hpf U Hyaline Cast (Auto) (0-5) /lpf U Epithel Cells (Auto) (0-5) /lpf Urine Bacteria (Auto) (Negative) Ur Renal Epithelial Cell (0-5) /lpf Granular Casts (0) /lpf Urine Yeast (None Prsent) COVID-19 Eval Order SARS-CoV-2 (PCR) (Negative) Administered Medications Discontinued Medications Sodium Chloride (Nss 1000ml) 1,000 mls @ 999 mls/hr IV .Q1H1M ONE Stop: 04/24/21 13:58 Last Infusion: 04/24/21 15:21 Dose: 0 mls/hr Documented by: [id number] Admin: 04/24/21 13:42 Dose: 999 mls/hr Documented by: [id number] Ceftriaxone Sodium (Rocephin) 1,000 mg in 50 mls @ 100 mls/hr IV NOW STA Stop: 04/24/21 14:28 Last Infusion: 04/24/21 14:50 Dose: 0 mls/hr Documented by: [id number] Admin: 04/24/21 14:18 Dose: 100 mls/hr Documented by: [id number] Sodium Chloride (Nss) 500 mls @ 999 mls/hr IV .Q31M ONE Stop: 04/24/21 15:41 Last Infusion: 04/24/21 17:37 Dose: 0 mls/hr Documented by: [id number] Admin: 04/24/21 15:30 Dose: 999 mls/hr Documented by: [id number] Imaging Data Radiologist's Impression: Chest X-Ray 04/24/21 12:58 XR chest 1V portable CLINICAL HISTORY: Altered mental status. COMPARISON STUDY: Chest radiograph April 04, 2021. Chest CT August 13, 2019. FINDINGS: Asymmetric interstitial thickening, greater within the right lung, with volume loss is unchanged. No pneumothorax or pleural effusion is noted. Elevation of the right hemidiaphragm is unchanged. Cardiomediastinal silhouette is unchanged. There is no consolidation to suggest superimposed pneumonia. IMPRESSION: No acute cardiopulmonary findings. No change in appearance of the chest. Asymmetric interstitial lung disease, greater within the right lung. ACT 112: Negative or not required by law. Electronically signed by: Jacobo Falk M.D. 04/24/2021 2:[address] 04/24/21 12:58 CT head/brain wo con CLINICAL HISTORY: 75 years-old Female with ams. Acutely altered mental status TECHNIQUE: Multiple axial CT images of the head were obtained without contrast. A dose lowering technique was utilized adhering to the principles of ALARA. CT DOSE: 1247.19 mGy.cm COMPARISON: 01/07/2020 FINDINGS: Motion degraded exam. The study was then repeated which was also motion degraded . Again noted is absence of the corpus callosum and septum pellucidum with associated cerebral and cerebellar atrophy. No acute intracranial hemorrhage, midline shift, intracranial mass, hydrocephalus, territorial ischemia or abnormal extra-axial collection. Cerebral vascular calcifications. The calvarium is intact. Prior bilateral lens repair is suggested. The paranasal sinuses, mastoid air cells, and middle ear cavities are clear. IMPRESSION: 1. Motion degraded exam without acute intracranial abnormality. 2. Chronic findings as above. ACT 112: Negative or not required by law. The above report was generated using voice recognition software. It may contain grammatical, syntax or spelling errors. Electronically signed by: Segun Delgado M.D. 04/24/2021 2:16 PM Discharge Plan Visit Data Chief Complaint: Altered Mental Status ED Provider: Murray Evans Discharge Problem: Acute alteration in mental status, Acute dehydration, High serum calcium, MAHIN (acute kidney injury) Forms Stand Alone Forms: [facility] Prescriptions Prescriptions: No Action multivitamin [Multiple Vitamins] Tablet 1 tab PO QAM Qty: 0 RF: 0 carbamazepine [Carbatrol] 300 mg Capsule, Er Multiphase 12 Hr 300 mg PO BID Qty: 0 RF: 0 Aloe Grant Protectant Ointment 43 % Ointment 1 applic TOPICAL BID Qty: 0 RF: 0 levothyroxine [Synthroid] 100 mcg Tablet 100 mcg PO DAILYBB Qty: 0 RF: 0 methenamine hippurate [Hiprex] 1 gram Tablet 1 g PO BID Qty: 0 RF: 0 aspirin 81 mg Tablet,Chewable 81 mg PO QAM Qty: 0 RF: 0 lamotrigine [Lamictal] 150 mg Tablet 300 mg PO BID RF: 0 Linzess 290 mcg Capsule 290 mcg PO DAILYBB RF: 0 fluticasone propionate [Flonase Allergy Relief] 50 mcg/actuation [place],Suspension 2 spray INTRANASAL QAM RF: 0 lamotrigine 100 mg tablet 50 mg PO BID RF: 0 acetaminophen [Tylenol] 325 mg Tablet 650 mg PO Q4H MDD max 3 gms/24h PRN (Reason: pain/fever) RF: 0 Triple Antibiotic 3.5mg-400 unit- 5,000 unit/gram Ointment 1 applic TOPICAL DIRECTED PRN (Reason: abrasions) RF: 0 guaifenesin [Mucinex] 600 mg Tablet Extended Release 12hr 600 mg PO Q12H PRN (Reason: Congestion) RF: 0 Robitussin DM Max 10-200 mg/5 mL Liquid 10 ml PO Q4H PRN (Reason: Cough) RF: 0 hydrocortisone [Proctozone-HC] 2.5 % Cream With Perineal Applicator 1 applic NM BID PRN (Reason: Hemorrhoids) RF: 0 polyethylene glycol 3350 [Miralax] 17 gram/dose Powder 17 g PO BID PRN (Reason: Constipation) RF: 0 loratadine [Claritin] 10 mg Tablet 10 mg PO QAM RF: 0 furosemide 40 mg tablet 80 mg PO QAM PRN (Reason: fluid accumulation) RF: 0 levetiracetam 500 mg tablet 500 mg PO BID RF: 0 sodium chloride [Saline Mist] 0.65 % aerosol,spray 2 spray INTRANASAL BID RF: 0 Referrals Referrals: Lora Carvalho, [Primary Care Provider] -
[2021-04-24 13:37] LABS: Basophils # (auto) 0.01 K/uL (0-0.2); Basophils % (auto) 0.1 %; Eosinophils # (auto) 0.04 K/uL (0-0.5); Eosinophils % (auto) 0.5 %; Hematocrit (blood only) 39.8 % (37-47); Hemoglobin 12.8 g/dL (12.0-16.0); Immature Granulocytes # (auto) 0.02 K/uL (0.00-0.02); Immature Granulocytes % (auto) 0.3 %; Lymphocytes # (auto) 1.83 K/uL (1.2-3.4); Lymphocytes % (auto) 23.9 %; Mean Corpuscular Hemoglobin 29.4 pg (25-34); Mean Corpuscular Hgb Conc 32.2 g/dL (32-36); Mean Corpuscular Volume 91.3 fL (80-100); Mean Platelet Volume 11.2 fL (7.4-10.4); Monocytes # (auto) 0.53 K/uL (0.11-0.59); Monocytes % (auto) 6.9 %; Neutrophils # (auto) 5.22 K/uL (1.4-6.5); Neutrophils % (auto) 68.3 %; Nucleated RBC # (auto) 0.03 K/uL (0-0); Nucleated RBC % (auto) 0.4 %; Platelet Count 273 K/uL (130-400); RDW Coefficient of Variation 14.3 % (11.5-14.5); RDW Standard Deviation 48.2 fL (36.4-46.3); Red Blood Count 4.36 M/uL (4.2-5.4); White Blood Count 7.65 K/uL (4.8-10.8)
[2021-04-24 13:50] LABS: Appearance Urine Turbid (Clear); Bacteria Urine Automated Negative (Negative); Blood Urine 2+ (Negative); Color Urine Dark Yellow; Epithelial Cell Urine Auto >30 /lpf (0-5); Glucose Urine UA Negative (Negative); Ketones Urine Negative (Negative); Leukocyte Esterase Urine 3+ (Negative); Nitrite Urine Negative (Negative); Protein Urine 2+ (Negative); Specific Gravity Urine 1.019 (1.000-1.030); Urobilinogen Urine Negative (Negative); WBC Urine Automated >30 /hpf (0-5); pH Urine 5.5 (4.5-7.5)
[2021-04-24 13:51] LABS: Base Excess VBG 4.2 mEq/L; Oxygen Saturation VBG 91.1 %; pH VBG 7.4 (7.36-7.41)
[2021-04-24] MEDS ORDERED: cefTRIAXone SODIUM 1,000 MG/50 ML BAG IV STA (13:59)
[2021-04-24 14:04] LABS: Bilirubin Urine 1+ (Negative)
--- NOTE | 2021-04-24 14:05 | XRay Report ---
XR chest 1V portable CLINICAL HISTORY: Altered mental status. COMPARISON STUDY: Chest radiograph April 04, 2021. Chest CT August 13, 2019. FINDINGS: Asymmetric interstitial thickening, greater within the right lung, with volume loss is unch anged. No pneumothorax or pleural effusion is noted. Elevation of the right hemidiaphragm is unchange d. Cardiomediastinal silhouette is unchanged. There is no consolidation to suggest superimposed pneum onia. IMPRESSION: No acute cardiopulmonary findings. No change in appearance of the chest. Asymmetric inte rstitial lung disease, greater within the right lung. ACT 112: Negative or not required by law. Electronically signed by: Jacobo Falk M.D. 04/24/2021 2:04 PM
[2021-04-24 14:11] LABS: Alanine Aminotransferase 27 U/L (12-78); Albumin Level 3.8 gm/dl (3.4-5.0); Aspartate Aminotransferase 16 U/L (15-37); BUN Creatinine Ratio 41.7 (10-20); Blood Urea Nitrogen 81 mg/dl (7-18); Calcium 12.5 mg/dl (8.5-10.1); Carbon Dioxide 25 mmol/L (21-32); Chloride 110 mmol/L (98-107); Creatinine Clr Calc Pharmacy 22.2 ml/min; Est GFR (African American) 28.5 ml/min; Est GFR (Non-African American) 24.6 ml/min; Glucose 117 mg/dl (70-99); Lipase 310 U/L (73-393); Potassium 3.7 mmol/L (3.5-5.1); Sodium 147 mmol/L (136-145)
--- NOTE | 2021-04-24 14:17 | CT Scan Report ---
CT head/brain wo con CLINICAL HISTORY: 75 years-old Female with ams. Acutely altered mental status TECHNIQUE: Multiple axial CT images of the head were obtained without contrast. A dose lowering tech nique was utilized adhering to the principles of ALARA. CT DOSE: 1247.19 mGy.cm COMPARISON: 01/07/2020 FINDINGS: Motion degraded exam. The study was then repeated which was also motion degraded. Again noted is abse nce of the corpus callosum and septum pellucidum with associated cerebral and cerebellar atrophy. No acute intracranial hemorrhage, midline shift, intracranial mass, hydrocephalus, territorial ischemia or abnormal extra-axial collection. Cerebral vascular calcifications. The calvarium is intact. Prior bilateral lens repair is suggested. The paranasal sinuses, mastoid air cells, and middle ear cavities are clear. IMPRESSION: 1. Motion degraded exam without acute intracranial abnormality. 2. Chronic findings as above. ACT 112: Negative or not required by law. The above report was generated using voice recognition software. It may contain grammatical, syntax o r spelling errors. Electronically signed by: Segun Delgado M.D. 04/24/2021 2:16 PM
[2021-04-24 14:19] LABS: Renal Epithelial Cells Urine 0-5 /lpf (0-5)
[2021-04-24 14:35] LABS: Albumin Globulin Ratio 0.7 (0.9-2); Alkaline Phosphatase 131 U/L (45-117); Bilirubin,Total 0.3 mg/dl (0.2-1); Globulin 5.1 gm/dl (2.5-4.0); Total Protein 8.9 gm/dl (6.4-8.2); Troponin I < 0.015 ng/ml (0-0.045)
--- NOTE | 2021-04-24 14:35 | Electrocardiogram Report ---
Test Reason : Blood Pressure : / mmHG Vent. Rate : 087 BPM Atrial Rate : 087 BPM P-R Int : 206 ms QRS Dur : 100 ms QT Int : 380 ms P-R-T Axes : 037 024 059 degrees QTc Int : 457 ms Poor data quality, interpretation may be adversely affected Sinus rhythm Possible Left atrial enlargement Abnormal ECG Confirmed by Valentin Gibbs ([id number]) on 04/24/2021 2:35:22 PM Referred By: REFERRED SELF Confirmed By:Seven Gibbs
[2021-04-24] MEDS ORDERED: SODIUM CHLORIDE 0.9% 500 ML IV ONE (15:11)
--- NOTE | 2021-04-24 15:57 | History & Physical Report ---
Date of Service April 24, 2021 Assessment & Plan (1) Lethargy: (2) Acute dehydration: (3) High serum calcium: (4) MAHIN (acute kidney injury): (5) Abnormal urinalysis: (6) Seizure disorder: (7) Intellectual disability: (8) Interstitial lung disease: Plan: This is a 76yo F with a PMH of cerebral palsy with intellectual impairment, chronic diastolic congestive heart failure, interstitial lung disease, history of seizure disorder, hypothyroidism, urinary retention with chronic indwelling Alvarado catheter, recurrent UTIs and on chronic methenamine suppression treatment, history of constipation and other medical problems listed below who presents with lethargy and concern for infection and was found to have hypernatremia and acute kidney injury. Lethargy Acute dehydration Hypernatremia Lethargy and decreased appetite x 2 days, decreased PO intake (only 24 oz reported fluids daily) Recently transitioned from [facility] to [facility], still adjusting to new care providers Afebrile, no leukocytosis, lactate wnl Sodium 147, chloride 110, calcium 12.5 CT head motion degraded exam without acute intracranial abnormality. Chronic findings as above. Received 2 L NSS in ED. Continue with IV fluids overnight UA abnormal, follow urine cultures. Continue empiric Rocephin given history of recurrent UTIs with indwelling catheter (catheter changed in ER) Acute kidney injury Cr elevated at 1.95 (baseline ~ 1) in setting of dehydration Continue fluid resuscitation, avoid nephrotoxic agents Repeat BMP in AM Seizure disorder Follows with [facility] neuro Continue Lamictal, Keppra Chronic constipation Continue outpatient bowel regimen Cerebral palsy Intellectual disability Mostly nonverbal except for a few words, wheelchair bound, can feed herself when alert and at baseline CHF Currently appears dry on exam. Holding lasix Interstitial lung disease Continue baseline 2L NC O2 DVT Ppx: SQ heparin Code status: FULL. Confirmed with brother Barry and Joyce ([phone]) PCP: Maia Dispo: Admitted to med/surg Patient seen in collaboration with Dr. Alejandre. Please see addendum. History of Present Illness Chief Complaint: lethargy Primary Care Provider: Lora Carvalho, DO This is a 76yo F with a PMH of cerebral palsy with intellectual impairment, chronic diastolic congestive heart failure, interstitial lung disease, history of seizure disorder, hypothyroidism, urinary retention with chronic indwelling Alvarado catheter, recurrent UTIs and on chronic methenamine suppression treatment, history of constipation and other medical problems listed below who presents with lethargy and concern for infection. Recently transitioned from [facility] to the [facility], so care providers skill getting to know her. [facility] employee at bedside has only known Minerva for 1 week. The patient is mostly nonverbal at baseline, speaking a few words and grunts. Is wheelchair bound. Has a history of catheter associated urinary tract infections. Caregiver denies any strong odor or hematuria. States Minerva has had decreased PO intake. Is on a fluid restriction of 50 oz but they have only been able to get her to drink 24oz per day since transition to [facility]. No fever, cough or congestion noted. Due to lethargy and decreased interaction, patient was brought into ED for further evaluation. Unable to obtain ROS due to cognitive status. Allergies Allergy/AdvReac Type Severity Reaction Status Date / Time No Known Allergies Allergy Unknown Verified 04/24/21 14:48 Home Medications Medication Instructions Recorded Confirmed Type multivitamin (Multiple Vitamins) 1 tab PO QAM #0 02/27/11 04/24/21 History carbamazepine 300 mg 300 mg PO BID #0 06/29/12 04/24/21 History capsule,extended release [id number] (Carbatrol) white petrolatum 43 % topical 1 applic TOPICAL BID #0 11/11/14 04/24/21 History ointment (Aloe [place] Protectant Ointment) aspirin 81 mg chewable tablet 81 mg PO QAM #0 07/17/17 04/24/21 History levothyroxine 100 mcg tablet 100 mcg PO DAILYBB #0 07/17/17 04/24/21 History (Synthroid) methenamine hippurate 1 gram 1 g PO BID #0 07/17/17 04/24/21 History tablet (Hiprex) lamotrigine 150 mg tablet 300 mg PO BID 06/11/18 04/24/21 History (Lamictal) linaclotide 290 mcg capsule 290 mcg PO DAILYBB 06/11/18 04/24/21 History (Linzess) fluticasone propionate 50 2 spray INTRANASAL QAM 10/11/18 04/24/21 History mcg/actuation nasal spray,suspension (Flonase Allergy Relief) lamotrigine 100 mg tablet 50 mg PO BID 10/11/18 04/24/21 History acetaminophen 325 mg tablet 650 mg PO Q4H PRN MDD max 3 gms/24h 01/07/20 04/24/21 History (Tylenol) guaifenesin 600 mg tablet, 600 mg PO Q12H PRN 01/07/20 04/24/21 History extended release 12 hr (Mucinex) neomycin-bacitracn Zn-polymyx 3.5 1 applic TOPICAL DIRECTED PRN 01/07/20 04/24/21 History mg-400 unit-5,000 unit/gram top oint (Triple Antibiotic) dextromethorphan-guaifenesin 10 10 ml PO Q4H PRN 04/04/21 04/24/21 History mg-200 mg/5 mL oral liquid furosemide 40 mg tablet 80 mg PO QAM PRN 04/04/21 04/24/21 History hydrocortisone 2.5 % topical cream 1 applic AK BID PRN 04/04/21 04/24/21 History with perineal applicator (Proctozone-HC) loratadine 10 mg tablet (Claritin) 10 mg PO QAM 04/04/21 04/24/21 History polyethylene glycol 3350 17 17 g PO BID PRN 04/04/21 04/24/21 History gram/dose oral powder (Miralax) levetiracetam 500 mg tablet 500 mg PO BID 04/24/21 04/24/21 History sodium chloride 0.65 % nasal spray 2 spray INTRANASAL BID 04/24/21 04/24/21 History aerosol (Saline Mist) Past Med/Surg History Medical History (Updated 04/24/21 @ 19:59 by Kady Adhikari PA-C) Cerebral palsy Chronic indwelling Alvarado catheter Chronic obstructive pulmonary disease oxygen daily Colon abnormality Alvarado catheter in place History of DVT (deep vein thrombosis) "2002- right lower extremity, completed Coumadin therapy" On 01/30/15 10:26 Francine Mckeon wrote "2002- right lower extremity" History of recurrent UTI (urinary tract infection) Hypothyroidism Intellectual disability Nonverbal On home oxygen therapy 2L N/C at all times Proctitis Pulmonary fibrosis Seizure disorder last was "a couple months ago", "staring type seizures", denies grand mal--on keppra, lamictal and carbamazepine ---follows with Dr. Stoddard Surgical History History of cystoscopy History of total right hip arthroplasty Family History Mother Hypertension Father Heart disease Grandmother Cancer Other Family history unknown Social History Smoking Status: Never smoker Second Hand Exposure: No; Hx Alcohol Use: No Hx Substance Use: No Preferred Language: Bhutanese Communication Ability: Unable Dolly Driver Required: No Beliefs That Will Affect Care: None marital status: Single Current Living Situation: Other Current Living Situation Comment: [facility] usp How many Children do You have: 0 Feels Safe at Home: Yes Assistive Devices: Oxygen - Continuous Review of Systems Review of Systems: Unobtainable due to cognitive status Physical Exam Physical Exam: General Appearance:vitals as above, NAD, sitting up in bed, lethargic, not following verbal commands Head: normocephalic, atraumatic Eyes:normal inspection, PERRL, conjunctivae normal, anicteric sclerae ENT: external ear and nose normal, dry oropharynx Neck: normal visual inspection, trachea midline, no thyromegaly Respiratory:normal respiratory effort, lungs clear to auscultation, no wheeze, rales, rhonchi. No accessory muscle use Cardiovascular: regular rate, rhythm, no murmur, normal peripheral pulses, no BLE edema. Vessels: no JVD Chest: normal inspection of chest Abdomen/GI: normoactive bowel sounds, soft, nontender, no hepatosplenomegaly : Alvarado catheter Extremities/Musculoskeletal: no cyanosis or clubbing, extremities motor strength 5/5 Neurologic: PERRL, moves all extremities spontaneously Psychiatric:minimally verbal at baseline, lethargic Skin: no rashes, normal color, warm/dry Results & Data Results & Data ([facility]) Vital Signs (Past 12 Hours) Vital Signs Temp Pulse Pulse Resp BP BP Pulse Ox 04/24/21 14:04 80 20 110/66 99 04/24/21 11:46 36.9 C 100 H 18 121/82 100 Laboratory Results Short CBC 04/24/21 Range/Units 13:28 WBC 7.65 (4.8-10.8) K/uL Hgb 12.8 (12.0-16.0) g/dL Hct 39.8 (37-47) % Plt Count 273 (130-400) K/uL BMP 04/24/21 13:28 Sodium 147 H Potassium 3.7 Chloride 110 H Carbon Dioxide 25 BUN 81 H Creatinine 1.95 H Glucose 117 H Calcium 12.5 H* Cardiac Enzymes 04/24/21 Range/Units 13:28 Troponin I < 0.015 (0-0.045) ng/ml Liver Function 04/24/21 Range/Units 13:28 Total Bilirubin 0.3 (0.2-1) mg/dl AST 16 (15-37) U/L ALT 27 (12-78) U/L Alkaline Phosphatase 131 H (45-117) U/L Albumin 3.8 (3.4-5.0) gm/dl Urine 04/24/21 Range/Units 13:06 Urine Color Dark Yellow Urine Appearance Turbid A (Clear) Urine pH 5.5 (4.5-7.5) Ur Specific [place] 1.019 (1.000-1.030) Urine Protein 2+ H (Negative) Urine Glucose (UA) Negative (Negative) Diagnostic Findings Chest X-Ray 04/24/21 12:58 XR chest 1V portable CLINICAL HISTORY: Altered mental status. COMPARISON STUDY: Chest radiograph April 04, 2021. Chest CT August 13, 2019. FINDINGS: Asymmetric interstitial thickening, greater within the right lung, with volume loss is unchanged. No pneumothorax or pleural effusion is noted. Elevation of the right hemidiaphragm is unchanged. Cardiomediastinal silhouette is unchanged. There is no consolidation to suggest superimposed pneumonia. IMPRESSION: No acute cardiopulmonary findings. No change in appearance of the chest. Asymmetric interstitial lung disease, greater within the right lung. ACT 112: Negative or not required by law. Electronically signed by: Jacobo Falk M.D. 04/24/2021 2:[address] 04/24/21 12:58 CT head/brain wo con CLINICAL HISTORY: 75 years-old Female with ams. Acutely altered mental status TECHNIQUE: Multiple axial CT images of the head were obtained without contrast. A dose lowering technique was utilized adhering to the principles of ALARA. CT DOSE: 1247.19 mGy.cm COMPARISON: 01/07/2020 FINDINGS: Motion degraded exam. The study was then repeated which was also motion degraded. Again noted is absence of the corpus callosum and septum pellucidum with associated cerebral and cerebellar atrophy. No acute intracranial hemorrhage, midline shift, intracranial mass, hydrocephalus, territorial ischemia or abnormal extra-axial collection. Cerebral vascular calcifications. The calvarium is intact. Prior bilateral lens repair is suggested. The paranasal sinuses, mastoid air cells, and middle ear cavities are clear. IMPRESSION: 1. Motion degraded exam without acute intracranial abnormality. 2. Chronic findings as above. ACT 112: Negative or not required by law. The above report was generated using voice recognition software. It may contain grammatical, syntax or spelling errors. Electronically signed by: Segun Delgado M.D. 04/24/2021 2:16 PM Supervising Physician Co-Signing Physician Notes Attending Addendum: delayed entry date of service noted above care coordinated with KRISTI Farrell please refer to her notes for full details, I agree with her notes patient seen and examined, records reviewed by myself as well on exam, patient seen resting in bed, eyes are closed, somewhat moving/restless, moaning, but drowsy not in distress no other signs noted by staff mechanical engineer VS noted and reviewed oriented x 0, breathing with no effort nor accessory muscle use normal rate, regular rhythm, no murmurs clear breath sounds bilaterally non distended, soft, nontender no bipedal edema, erythema, warmth no focal neuro deficits Na 147 Crea 1.9 ASSESSMENT AND PLAN ACUTE RENAL FAILURE likely PreRenal Etiology IV NSS ordered HYPERCALCEMIA IV fluids monitor closely ALTERED MENTAL STATUS likely secondary to above other diagnoses and plan of care as per KRISTI Farrell's notes Brendon Alejandre MD
[2021-04-24] MEDS ORDERED: ONDANSETRON INJ 2 MG/ML 2 ML VIAL IV PRN (19:32)
[2021-04-24] MEDS ORDERED: ACETAMINOPHEN 325 MG TAB PO PRN (19:32)
[2021-04-24] MEDS ORDERED: NEOMYCIN/POLYMYX/BACITR OINT 15 GM TUBE TOP PRN (19:59)
[2021-04-24] MEDS ORDERED: guaiFENesin 600 MG TABCR PO PRN (19:59)
[2021-04-24] MEDS ORDERED: SODIUM CHLORIDE 0.9% 1000ML 1,000 ML IV SCH (20:15)
[2021-04-24] MEDS ORDERED: guaiFENesin/DEXTROM SYRUP 200MG/20MG 10ML UDC PO PRN (20:22)
[2021-04-24] MEDS ORDERED: WHITE PETROLATUM TOP SCH (21:00)
[2021-04-24] MEDS: HEPARIN SOD 5,000 UNIT/0.5 ML VIAL SQ SCH (21:20)
[2021-04-24] MEDS: SODIUM CHLORIDE 0.65% NA SOLN 45 ML (OCEAN) NAE SCH (21:20)
[2021-04-24] MEDS: lamoTRIgine 25 MG TAB PO SCH (22:15)
[2021-04-24] MEDS: levETIRAcetam 500 MG TAB PO SCH (22:15)
[2021-04-24] MEDS: lamoTRIgine 100 MG TAB PO SCH (22:15)
[2021-04-24] MEDS: METHENAMINE HIPPURATE 1 GM TAB PO SCH (22:15)
[2021-04-25] MEDS: LEVOTHYROXINE SODIUM 100 MCG TABLET PO SCH (05:55)
[2021-04-25] MEDS: LINACLOTIDE 145 MCG CAPSULE PO SCH (05:55)
[2021-04-25 06:28] LABS: Hematocrit (blood only) 38.7 % (37-47); Mean Corpuscular Hemoglobin 28.7 pg (25-34); Mean Corpuscular Volume 92.6 fL (80-100); Mean Platelet Volume 11.7 fL (7.4-10.4); Platelet Count 250 K/uL (130-400); RDW Coefficient of Variation 14.7 % (11.5-14.5); RDW Standard Deviation 49.6 fL (36.4-46.3); Red Blood Count 4.18 M/uL (4.2-5.4); White Blood Count 6.58 K/uL (4.8-10.8)
[2021-04-25 07:09] LABS: Creatinine Clr Calc Pharmacy 30.1 ml/min; Est GFR (African American) 41.1 ml/min; Est GFR (Non-African American) 35.4 ml/min; Potassium 3.6 mmol/L (3.5-5.1)
[2021-04-25] MEDS ORDERED: DEXTROSE 5% 1,000 ML IV SCH (07:45)
[2021-04-25] MEDS: cefTRIAXone SODIUM 1,000 MG in DEXTROSE 5% 50 ML IV SCH (09:27)
[2021-04-25] MEDS: HEPARIN SOD 5,000 UNIT/0.5 ML VIAL SQ SCH ×2 (09:28→20:36)
[2021-04-25] MEDS: FLUTICASONE PROPIONATE NA SPR 16 GM BTL NAE SCH (09:28)
[2021-04-25] MEDS: SODIUM CHLORIDE 0.65% NA SOLN 45 ML (OCEAN) NAE SCH ×2 (09:40→20:37)
[2021-04-25] MEDS: ASPIRIN 81 MG ECTAB PO SCH (10:01)
[2021-04-25] MEDS: lamoTRIgine 100 MG TAB PO SCH ×2 (10:17→20:40)
[2021-04-25] MEDS: levETIRAcetam 500 MG TAB PO SCH ×2 (10:18→20:40)
[2021-04-25] MEDS: METHENAMINE HIPPURATE 1 GM TAB PO SCH ×2 (10:18→20:40)
[2021-04-25] MEDS: CEROVITE ADV FORMULA TAB PO SCH (10:18)
[2021-04-25] MEDS: lamoTRIgine 25 MG TAB PO SCH ×2 (10:18→20:40)
[2021-04-25] MEDS: LORATADINE 10 MG TAB PO SCH (10:18)
--- NOTE | 2021-04-25 13:52 | Hospitalist Progress Note ---
Date of Service April 25, 2021 Assessment & Plan (1) Lethargy: (2) Acute dehydration: (3) High serum calcium: (4) MAHIN (acute kidney injury): (5) Abnormal urinalysis: (6) Seizure disorder: (7) Intellectual disability: (8) Interstitial lung disease: Plan: This is a 76yo F with a PMH of cerebral palsy with intellectual impairment, chronic diastolic congestive heart failure, interstitial lung disease, history of seizure disorder, hypothyroidism, urinary retention with chronic indwelling Alvarado catheter, recurrent UTIs and on chronic methenamine suppression treatment, history of constipation and other medical problems listed below who presents with lethargy and concern for infection and was found to have hypernatremia and acute kidney injury. Lethargy Acute dehydration Hypernatremia Lethargy and decreased appetite x 2 days, decreased PO intake (only 24 oz reported fluids daily) Recently transitioned from [facility] to the [facility], still adjusting to new care providers Afebrile, no leukocytosis, lactate wnl Admitting Sodium 147, chloride 110, calcium 12.5 CT head motion degraded exam without acute intracranial abnormality. Chronic findings as above. Received 2 L NSS in ED. Continue with IV fluids overnight Received 3L of of NS, Na 153 today with improvement in renal function Switch to D5W 80cc/hr, repeat bmp @ 2p, if no improvement will consult nephro Na stable at 152, increase rate to 100cc/hr + 20meq KCL, discussed with Dr. Perez who has been consulted on her before and felt no further work up needed as it is related to free water deficit, will take time to correct UTI urine culture growing gram negative bacilli follow urine cultures Continue empiric Rocephin given history of recurrent UTIs with indwelling catheter (catheter changed in ER) Acute kidney injury Cr elevated at 1.95 (baseline ~ 1) in setting of dehydration bun/cr 71 and 1.44 IV to D5W + 20meq KCL 100cc/hr repeat bmp @ 2pm and then q6h lasix on hold Continue fluid resuscitation, avoid nephrotoxic agents Repeat BMP in AM Hypercalcemia Ca 12.5 on admission 11.0 repeat this a.m., bmp currently pending Seizure disorder Follows with [facility] neuro Continue Lamictal, Keppra Chronic constipation Continue outpatient bowel regimen Cerebral palsy Intellectual disability Mostly nonverbal except for a few words, wheelchair bound, can feed herself when alert and at baseline CHF Currently appears dry on exam. Holding lasix Interstitial lung disease Continue baseline 2L NC O2 DVT Ppx: SQ heparin Code status: FULL. Confirmed with brother Barry and Joyce ([phone]) PCP: Maia Dispo: Admitted to med/surg, pt to remain hospitalized, not yet medically stable Patient seen in collaboration with Dr. Alejandre. Please see addendum. Discussed with Sister in Law Cook and provided update, she was appreciative. Plan is to return back to the [facility] when stable. Pt goes by "Liz." Admission and Anticipated Discharge Date Admission Date: April 24, 2021 Supervising Physician Co-Signing Physician Notes Attending Addendum: delayed entry date of service noted above care coordinated with KRISTI Farrell please refer to her notes for full details, I agree with her notes patient seen and examined, records reviewed by myself as well on exam, patient seen resting in bed, comfortable eyes mostly closed but appears to be more awake, nods occasionally moves mores no other signs noted VS noted and reviewed oriented x 0, breathing with no effort nor accessory muscle use normal rate, regular rhythm, no murmurs clear breath sounds bilaterally non distended, soft, nontender no bipedal edema, erythema, warmth no new neuro deficits Na 153 crea 1.4 Ca 11 ASSESSMENT AND PLAN ACUTE RENAL FAILURE from PreRenal Etiology improving continue IV fluids HYPERCALCEMIA improving continue IV fluids HYPERNATREMIA increase D5W ALTERED MENTAL STATUS INTELLECTUAL DISABILITY seems to be improving other diagnoses and plan of care as per KRISTI Alejandre MD Subjective Patient was seen and examined in room 385-2. Follow up acute dehydration and hypernatremia. Ros unobtainable secondary to cognitive status. She is lying in bed. She is arousable. Review of Systems Review of Systems: Unobtainable due to cognitive status Physical Exam Physical Exam: Gen: WD/WN, Elderly, Drowsy, NAD, lethargy HEENT: Normocephalic, atraumatic, conjunctivae moist, sclerae anicteric, mucous membranes moist. Lung: Clear to Auscultation bilaterally, no wheezes/rales/rhonchi on 2L O2 NC Heart: Regular rate, regular rhythm, 2/6 PARISA, no rubs, or gallops Abdomen: Soft, NT, ND +BS x 4 Extremities: No edema Skin: Warm, no rash, negative turgor. : Alvarado with yellow urine output Results & Data Results & Data ([facility]) Vital Signs (Past 12 Hours) Vital Signs Temp Pulse Resp BP Pulse Ox 04/25/21 07:59 37.2 C 88 18 107/56 L 97 Laboratory Results Short CBC 04/25/21 Range/Units 06:11 WBC 6.58 (4.8-10.8) K/uL Hgb 12.0 (12.0-16.0) g/dL Hct 38.7 (37-47) % Plt Count 250 (130-400) K/uL BMP 04/24/21 04/25/21 13:28 06:11 Sodium 147 H 153 H Potassium 3.7 3.6 Chloride 110 H 120 H Carbon Dioxide 25 25 BUN 81 H 71 H Creatinine 1.95 H 1.44 H D Glucose 117 H 101 H Calcium 12.5 H* 11.0 H Cardiac Enzymes 04/24/21 Range/Units 13:28 Troponin I < 0.015 (0-0.045) ng/ml Liver Function 04/24/21 Range/Units 13:28 Total Bilirubin 0.3 (0.2-1) mg/dl AST 16 (15-37) U/L ALT 27 (12-78) U/L Alkaline Phosphatase 131 H (45-117) U/L Albumin 3.8 (3.4-5.0) gm/dl Urine 04/24/21 Range/Units 13:06 Urine Color Dark Yellow Urine Appearance Turbid A (Clear) Urine pH 5.5 (4.5-7.5) Ur Specific [place] 1.019 (1.000-1.030) Urine Protein 2+ H (Negative) Urine Glucose (UA) Negative (Negative) Diagnostic Findings Chest X-Ray 04/24/21 12:58 XR chest 1V portable CLINICAL HISTORY: Altered mental status. COMPARISON STUDY: Chest radiograph April 04, 2021. Chest CT August 13, 2019. FINDINGS: Asymmetric interstitial thickening, greater within the right lung, with volume loss is unchanged. No pneumothorax or pleural effusion is noted. Elevation of the right hemidiaphragm is unchanged. Cardiomediastinal silhouette is unchanged. There is no consolidation to suggest superimposed pneumonia. IMPRESSION: No acute cardiopulmonary findings. No change in appearance of the chest. Asymmetric interstitial lung disease, greater within the right lung. ACT 112: Negative or not required by law. Electronically signed by: Jacobo Falk M.D. 04/24/2021 2:[address] 04/24/21 12:58 CT head/brain wo con CLINICAL HISTORY: 75 years-old Female with ams. Acutely altered mental status TECHNIQUE: Multiple axial CT images of the head were obtained without contrast. A dose lowering technique was utilized adhering to the principles of ALARA. CT DOSE: 1247.19 mGy.cm COMPARISON: 01/07/2020 FINDINGS: Motion degraded exam. The study was then repeated which was also motion degraded. Again noted is absence of the corpus callosum and septum pellucidum with associated cerebral and cerebellar atrophy. No acute intracranial hemo rrhage, midline shift, intracranial mass, hydrocephalus, territorial ischemia or abnormal extra-axial collection. Cerebral vascular calcifications. The calvarium is intact. Prior bilateral lens repair is suggested. The paranasal sinuses, mastoid air cells, and middle ear cavities are clear. IMPRESSION: 1. Motion degraded exam without acute intracranial abnormality. 2. Chronic findings as above. ACT 112: Negative or not required by law. The above report was generated using voice recognition software. It may contain grammatical, syntax or spelling errors. Electronically signed by: Segun Delgado M.D. 04/24/2021 2:16 PM Medications Administered Current Inpatient Medications Acetaminophen (Acetaminophen 325 Mg Tab) 650 mg PO Q4H PRN PRN Reason: pain/fever Stop: 05/24/21 19:31 Aspirin (Aspirin 81 Mg Ectab) 81 mg PO QAM [facility] Stop: 05/25/21 08:59 Last Admin: 04/25/21 10:01 Dose: Not Given Documented by: Carbamazepine (Carbamazepine 100 Mg Tabcr) 300 mg PO BID [facility] Stop: 05/24/21 20:59 Last Admin: 04/25/21 10:01 Dose: Not Given Documented by: Fluticasone Propionate (Fluticasone Propionate Na Spr 16 Gm Btl) 2 sprays COREEN QAM [facility] Stop: 05/25/21 08:59 Last Admin: 04/25/21 09:28 Dose: 2 sprays Documented by: Guaifenesin (Guaifenesin 600 Mg Tabcr) 600 mg PO Q12H PRN PRN Reason: Congestion Stop: 05/24/21 19:58 Guaifenesin/Dextromethorphan (Guaifenesin/Dextrom Syrup 200mg/20mg 10ml Udc) 10 ml PO Q4H PRN PRN Reason: Cough Stop: 05/24/21 20:21 Heparin Sodium (Porcine) (Heparin Sod 5,000 Unit/0.5 Ml Vial) 5,000 units SQ Q12 [facility] Stop: 05/24/21 20:59 Last Admin: 04/25/21 09:28 Dose: 5,000 units Documented by: Ceftriaxone Sodium 1,000 mg/ (Dextrose) 50 mls @ 100 mls/hr IV Q24H [facility]; Protocol Stop: 04/26/21 18:00 Last Infusion: 04/25/21 10:19 Dose: Infused Documented by: Dextrose (D5w) 1,000 mls @ 75 mls/hr IV .[id number] [facility] Stop: 05/25/21 07:44 Last Admin: 04/25/21 09:34 Dose: 75 mls/hr Documented by: Lamotrigine (Lamotrigine 100 Mg Tab) 300 mg PO BID [facility] Stop: 05/24/21 20:59 Last Admin: 04/25/21 10:17 Dose: Not Given Documented by: Lamotrigine (Lamotrigine 25 Mg Tab) 50 mg PO BID [facility] Stop: 05/24/21 20:59 Last Admin: 04/25/21 10:18 Dose: Not Given Documented by: Levetiracetam (Levetiracetam 500 Mg Tab) 500 mg PO BID [facility] Stop: 05/24/21 20:59 Last Admin: 04/25/21 10:18 Dose: Not Given Documented by: Levothyroxine Sodium (Levothyroxine Sodium 100 Mcg Tablet) 100 mcg PO DAILYBB [facility] Stop: 05/25/21 06:29 Last Admin: 04/25/21 05:55 Dose: Not Given Documented by: Linaclotide (Linaclotide 145 Mcg Capsule) 290 mcg PO DAILYBB [facility] Stop: 05/25/21 06:29 Last Admin: 04/25/21 05:55 Dose: Not Given Documented by: Loratadine (Loratadine 10 Mg Tab) 10 mg PO QAM [facility] Stop: 05/25/21 08:59 Last Admin: 04/25/21 10:18 Dose: Not Given Documented by: Methenamine Hippurate (Methenamine Hippurate 1 Gm Tab) 1 gm PO BID [facility] Stop: 05/24/21 20:59 Last Admin: 04/25/21 10:18 Dose: Not Given Documented by: Multivitamins/Minerals (Cerovite Adv Formula Tab) 1 tab PO QAM [facility] Stop: 05/25/21 08:59 Last Admin: 04/25/21 10:18 Dose: Not Given Documented by: Neomycin/Polymyxin/Bacitracin (Neomycin/Polymyx/Bacitr Oint 15 Gm Tube) 1 appln TOP UD PRN PRN Reason: abrasions Stop: 05/24/21 19:58 Ondansetron HCl (Ondansetron Inj 2 Mg/Ml 2 Ml Vial) 4 mg IV Q6H PRN PRN Reason: Nausea Stop: 05/24/21 19:31 Polyethylene Glycol (Polyethylene (Miralax) 17 Gm Pack) 17 gm PO DAILY PRN PRN Reason: Constipation Stop: 05/24/21 19:31 Sodium Chloride (Sodium Chloride 0.65% Na Soln 45 Ml ([place])) 2 sprays COREEN BID [facility] Stop: 05/24/21 20:59 Last Admin: 04/25/21 09:40 Dose: 2 sprays Documented by:
[2021-04-25 14:31] LABS: BUN Creatinine Ratio 50.1 (10-20); Calcium 10.5 mg/dl (8.5-10.1); Creatinine Clr Calc Pharmacy 33.3 ml/min; Est GFR (African American) 46.5 ml/min; Est GFR (Non-African American) 40.1 ml/min; Potassium 3.4 mmol/L (3.5-5.1)
--- NOTE | 2021-04-25 15:21 | Ultrasound Report ---
RIGHT UPPER EXTREMITY VENOUS DOPPLER HISTORY: Right upper extremity edema, r/o dvt COMPARISON STUDY: None. FINDINGS: Suboptimal evaluation of the right upper extremity venous system due to the patient's contr actions. The right internal jugular vein is patent. There is normal flow within the right subclavian vein. There is normal flow and compressibility within the right axillary, basilic, brachial, radial, ulnar, and visualized cephalic veins. IMPRESSION: No definite DVT within the right upper extremity. ACT 112: Negative or not required by law. Electronically signed by: Juan Carlos Garcia M.D. 04/25/2021 3:20 PM
[2021-04-25] MEDS: POTASSIUM CHLORIDE 20 MEQ in DEXTROSE 5% 1,000 ML IV SCH (16:08)
[2021-04-25 20:43] LABS: BUN Creatinine Ratio 48.2 (10-20); Calcium 10.8 mg/dl (8.5-10.1); Creatinine Clr Calc Pharmacy 36.4 ml/min; Est GFR (African American) 51.7 ml/min; Est GFR (Non-African American) 44.6 ml/min; Potassium 3.9 mmol/L (3.5-5.1)
[2021-04-26] MEDS: POTASSIUM CHLORIDE 20 MEQ in DEXTROSE 5% 1,000 ML IV SCH ×2 (02:16→13:30)
[2021-04-26 03:10] LABS: BUN Creatinine Ratio 48.2 (10-20); Calcium 10.4 mg/dl (8.5-10.1); Creatinine Clr Calc Pharmacy 41.2 ml/min; Est GFR (African American) 60.2 ml/min; Est GFR (Non-African American) 51.9 ml/min; Potassium 3.8 mmol/L (3.5-5.1)
[2021-04-26] MEDS: LINACLOTIDE 145 MCG CAPSULE PO SCH (06:12)
[2021-04-26] MEDS: LEVOTHYROXINE SODIUM 100 MCG TABLET PO SCH (06:12)
[2021-04-26] MEDS: FLUTICASONE PROPIONATE NA SPR 16 GM BTL NAE SCH (08:44)
[2021-04-26] MEDS: SODIUM CHLORIDE 0.65% NA SOLN 45 ML (OCEAN) NAE SCH ×2 (08:44→21:57)
[2021-04-26] MEDS: cefTRIAXone SODIUM 1,000 MG in DEXTROSE 5% 50 ML IV SCH (08:45)
[2021-04-26 09:16] LABS: Hematocrit (blood only) 36.5 % (37-47); Hemoglobin 11.5 g/dL (12.0-16.0); Mean Corpuscular Hemoglobin 28.9 pg (25-34); Mean Corpuscular Hgb Conc 31.5 g/dL (32-36); Mean Corpuscular Volume 91.7 fL (80-100); Mean Platelet Volume 11.9 fL (7.4-10.4); Platelet Count 201 K/uL (130-400); RDW Coefficient of Variation 14.8 % (11.5-14.5); RDW Standard Deviation 49.9 fL (36.4-46.3); Red Blood Count 3.98 M/uL (4.2-5.4); White Blood Count 7.21 K/uL (4.8-10.8)
[2021-04-26] MEDS: ASPIRIN 81 MG ECTAB PO SCH (09:23)
[2021-04-26] MEDS: lamoTRIgine 25 MG TAB PO SCH ×2 (09:24→21:56)
[2021-04-26] MEDS: lamoTRIgine 100 MG TAB PO SCH ×2 (09:24→21:56)
[2021-04-26] MEDS: levETIRAcetam 500 MG TAB PO SCH ×2 (09:24→21:56)
[2021-04-26] MEDS: CEROVITE ADV FORMULA TAB PO SCH (09:24)
[2021-04-26] MEDS: LORATADINE 10 MG TAB PO SCH (09:24)
[2021-04-26] MEDS: METHENAMINE HIPPURATE 1 GM TAB PO SCH ×2 (09:24→21:56)
[2021-04-26] MEDS: HEPARIN SOD 5,000 UNIT/0.5 ML VIAL SQ SCH ×2 (09:26→21:56)
[2021-04-26 09:59] LABS: BUN Creatinine Ratio 42.8 (10-20); Calcium 10.9 mg/dl (8.5-10.1); Creatinine Clr Calc Pharmacy 48.1 ml/min; Est GFR (African American) 72.5 ml/min; Est GFR (Non-African American) 62.5 ml/min
[2021-04-26 15:01] LABS: BUN Creatinine Ratio 42.1 (10-20); Calcium 10.2 mg/dl (8.5-10.1); Creatinine Clr Calc Pharmacy 56.2 ml/min; Est GFR (African American) 87.5 ml/min; Est GFR (Non-African American) 75.5 ml/min; Potassium 4.2 mmol/L (3.5-5.1)
--- NOTE | 2021-04-26 16:04 | Hospitalist Progress Note ---
Date of Service April 26, 2021 Assessment & Plan (1) Lethargy: (2) Acute dehydration: (3) High serum calcium: (4) MAHIN (acute kidney injury): (5) Abnormal urinalysis: (6) Seizure disorder: (7) Intellectual disability: (8) Interstitial lung disease: Plan: This is a 76yo F with a PMH of cerebral palsy with intellectual impairment, chronic diastolic congestive heart failure, interstitial lung disease, history of seizure disorder, hypothyroidism, urinary retention with chronic indwelling Alvarado catheter, recurrent UTIs and on chronic methenamine suppression treatment, history of constipation and other medical problems listed below who presents with lethargy and concern for infection and was found to have hypernatremia and acute kidney injury. Lethargy Acute dehydration Hypernatremia Lethargy and decreased appetite x 2 days, decreased PO intake (only 24 oz reported fluids daily) Recently transitioned from [facility] to the [facility], still adjusting to new care providers Afebrile, no leukocytosis, lactate wnl Admitting Sodium 147, chloride 110, calcium 12.5 CT head motion degraded exam without acute intracranial abnormality. Chronic findings as above. Received 2 L NSS in ED. Continue with IV fluids overnight Received 3L of of NS, Na 153 today with improvement in renal function Switch to D5W 80cc/hr on 04/25 Na stable at 152, increase rate to 100cc/hr + 20meq KCL, discussed with Dr. Perez who has been consulted on her before and felt no further work up needed as it is related to free water deficit, will take time to correct Na improving to 149, pt more alert and arousable Trial diet, aspiration precautions UTI urine culture growing proteus mirababils sensitive to Rocephin, Day 3 history of recurrent UTIs with indwelling catheter (catheter changed in ER) Acute kidney injury Cr elevated at 1.95 (baseline ~ 1) in setting of dehydration improving to 32 and 0.77, resolving IVF D5W + 20meq KCL 100cc/hr follow bmp lasix on hold Continue fluid resuscitation, avoid nephrotoxic agents Repeat BMP in AM Hypercalcemia Ca 12.5 on admission improving 10.2 today Hypokalemia replaced with IVF will return fluids to IV D5W @ 100cc/hr Seizure disorder Follows with [facility] neuro Continue Lamictal, Keppra Chronic constipation Continue linzess add senna S Cerebral palsy Intellectual disability Mostly nonverbal except for a few words, wheelchair bound, can feed herself when alert and at baseline CHF lasix currently on hold monitor closely appears euvolemic monitor volume status Interstitial lung disease Continue baseline 2L NC O2 DVT Ppx: SQ heparin Code status: FULL. Confirmed with brother Barry and Joyce ([phone]) PCP: Maia Dispo: Admitted to med/surg, pt to remain hospitalized, not yet medically stable Patient seen in collaboration with Dr. Oshea. Please see addendum. Discussed with Sister in Law Cook and provided update, she was appreciative. Plan is to return back to the [facility] when stable. Pt goes by "Liz." Admission and Anticipated Discharge Date Admission Date: April 24, 2021 Supervising Physician Co-Signing Physician Notes Pt was seen and examined. Agreed with Mahsa exam, assessment and plan. Lying in bed and see to be comfortable. Na improved from 152 to 149. Will continue IVF. Continue monitor BMP. MD Dorie Subjective Patient was seen and examined in room 385-2. Follow up acute dehydration and hypernatremia. Ros unobtainable secondary to cognitive status. She is lying in bed. She is arousable and groaning to touch. Review of Systems Review of Systems: Unobtainable due to cognitive status Physical Exam Physical Exam: Gen: WD/WN, Elderly, Drowsy, NAD, arousable to touch but nonverbal, groans HEENT: Normocephalic, atraumatic, conjunctivae moist, sclerae anicteric, mucous membranes moist. Lung: Clear to Auscultation bilaterally, no wheezes/rales/rhonchi on 2L O2 NC Heart: Regular rate, regular rhythm, 2/6 PARISA, no rubs, or gallops Abdomen: Soft, NT, ND +BS x 4 Extremities: No edema Skin: Warm, no rash, negative turgor. : Alvarado with yellow urine output Results & Data Results & Data ([facility]) Vital Signs (Past 12 Hours) Vital Signs Temp Pulse Pulse Resp BP Pulse Ox 04/26/21 15:45 36.9 C 92 H 18 105/73 100 04/26/21 07:58 36.8 C 85 18 134/66 95 Laboratory Results Short CBC 04/24/21 04/25/21 04/25/21 Range/Units 13:28 06:11 14:02 WBC (4.8-10.8) K/uL Hgb (12.0-16.0) g/dL Hct (37-47) % Plt Count (130-400) K/uL Sodium 147 H 153 H 153 H (136-145) mmol/L 04/25/21 04/26/21 04/26/21 Range/Units 20:09 01:34 02:11 WBC (4.8-10.8) K/uL Hgb (12.0-16.0) g/dL Hct (37-47) % Plt Count (130-400) K/uL Sodium 153 H 148 H 151 H (136-145) mmol/L 04/26/21 04/26/21 Range/Units 08:49 14:07 WBC 7.21 (4.8-10.8) K/uL Hgb 11.5 L (12.0-16.0) g/dL Hct 36.5 L (37-47) % Plt Count 201 (130-400) K/uL Sodium 149 H (136-145) mmol/L [facility] 04/25/21 04/26/21 04/26/21 20:09 01:34 02:11 Sodium 153 H 148 H 151 H Potassium 3.9 4.0 3.8 Chloride 122 H 117 H 119 H Carbon Dioxide 26 25 29 BUN 57 H 39 H 51 H Creatinine 1.19 0.90 1.05 Glucose 127 H 129 H 123 H Calcium 10.8 H 10.9 H 10.4 H 04/26/21 14:07 Sodium 149 H Potassium 4.2 Chloride 117 H Carbon Dioxide 27 BUN 32 H Creatinine 0.77 Glucose 113 H Calcium 10.2 H Medications Administered Medication List Aspirin (Aspirin 81 Mg Ectab) 81 mg PO QAM [facility] Stop: 05/25/21 08:59 Last Admin: 04/26/21 09:23 Dose: Not Given Documented by: [id number] Admin: 04/25/21 10:01 Dose: Not Given Documented by: [id number] Carbamazepine (Carbamazepine 100 Mg Tabcr) 300 mg PO BID [facility] Stop: 05/24/21 20:59 Last Admin: 04/26/21 09:24 Dose: Not Given Documented by: [id number] Admin: 04/25/21 20:40 Dose: Not Given Documented by: [id number] Admin: 04/25/21 10:01 Dose: Not Given Documented by: [id number] Admin: 04/24/21 22:15 Dose: Not Given Documented by: [id number] Fluticasone Propionate (Fluticasone Propionate Na Spr 16 Gm Btl) 2 sprays COREEN QAM [facility] Stop: 05/25/21 08:59 Last Admin: 04/26/21 08:44 Dose: 2 sprays Documented by: [id number] Admin: 04/25/21 09:28 Dose: 2 sprays Documented by: [id number] Heparin Sodium (Porcine) (Heparin Sod 5,000 Unit/0.5 Ml Vial) 5,000 units SQ Q12 [facility] Stop: 05/24/21 20:59 Last Admin: 04/26/21 09:26 Dose: 5,000 units Documented by: [id number] Admin: 04/25/21 20:36 Dose: 5,000 units Documented by: [id number] Admin: 04/25/21 09:28 Dose: 5,000 units Documented by: [id number] Admin: 04/24/21 21:20 Dose: 5,000 units Documented by: [id number] Ceftriaxone Sodium 1,000 mg/ (Dextrose) 50 mls @ 100 mls/hr IV Q24H [facility]; Protocol Stop: 04/26/21 18:00 Last Infusion: 04/26/21 09:27 Dose: 0 mls/hr Documented by: [id number] Admin: 04/26/21 08:45 Dose: 100 mls/hr Documented by: [id number] Infusion: 04/25/21 10:19 Dose: 0 mls/hr Documented by: [id number] Admin: 04/25/21 09:27 Dose: 100 mls/hr Documented by: [id number] Potassium Chloride 20 meq/ (Dextrose) 1,010 mls @ 100 mls/hr IV .Q10H6M [facility] Stop: 05/25/21 15:22 Last Admin: 04/26/21 13:30 Dose: 100 mls/hr Documented by: [id number] Infusion: 04/26/21 13:05 Dose: 0 mls/hr Documented by: [id number] Admin: 04/26/21 02:16 Dose: 100 mls/hr Documented by: [id number] Infusion: 04/26/21 02:14 Dose: 0 mls/hr Documented by: [id number] Admin: 04/25/21 16:08 Dose: 100 mls/hr Documented by: [id number] Lamotrigine (Lamotrigine 100 Mg Tab) 300 mg PO BID [facility] Stop: 05/24/21 20:59 Last Admin: 04/26/21 09:24 Dose: Not Given Documented by: [id number] Admin: 04/25/21 20:40 Dose: Not Given Documented by: [id number] Admin: 04/25/21 10:17 Dose: Not Given Documented by: [id number] Admin: 04/24/21 22:15 Dose: Not Given Documented by: [id number] Lamotrigine (Lamotrigine 25 Mg Tab) 50 mg PO BID [facility] Stop: 05/24/21 20:59 Last Admin: 04/26/21 09:24 Dose: Not Given Documented by: [id number] Admin: 04/25/21 20:40 Dose: Not Given Documented by: [id number] Admin: 04/25/21 10:18 Dose: Not Given Documented by: [id number] Admin: 04/24/21 22:15 Dose: Not Given Documented by: [id number] Levetiracetam (Levetiracetam 500 Mg Tab) 500 mg PO BID [facility] Stop: 05/24/21 20:59 Last Admin: 04/26/21 09:24 Dose: Not Given Documented by: [id number] Admin: 04/25/21 20:40 Dose: Not Given Documented by: [id number] Admin: 04/25/21 10:18 Dose: Not Given Documented by: [id number] Admin: 04/24/21 22:15 Dose: Not Given Documented by: [id number] Levothyroxine Sodium (Levothyroxine Sodium 100 Mcg Tablet) 100 mcg PO DAILYBB [facility] Stop: 05/25/21 06:29 Last Admin: 04/26/21 06:12 Dose: Not Given Documented by: [id number] Admin: 04/25/21 05:55 Dose: Not Given Documented by: [id number] Linaclotide (Linaclotide 145 Mcg Capsule) 290 mcg PO DAILYBB [facility] Stop: 05/25/21 06:29 Last Admin: 04/26/21 06:12 Dose: Not Given Documented by: [id number] Admin: 04/25/21 05:55 Dose: Not Given Documented by: [id number] Loratadine (Loratadine 10 Mg Tab) 10 mg PO QAM [facility] Stop: 12/02/21 08:59 Last Admin: 04/26/21 09:24 Dose: Not Given Documented by: [id number] Admin: 04/25/21 10:18 Dose: Not Given Documented by: [id number] Methenamine Hippurate (Methenamine Hippurate 1 Gm Tab) 1 gm PO BID [facility] Stop: 05/24/21 20:59 Last Admin: 04/26/21 09:24 Dose: Not Given Documented by: [id number] Admin: 04/25/21 20:40 Dose: Not Given Documented by: [id number] Admin: 04/25/21 10:18 Dose: Not Given Documented by: [id number] Admin: 04/24/21 22:15 Dose: Not Given Documented by: [id number] Multivitamins/Minerals (Cerovite Adv Formula Tab) 1 tab PO QAM [facility] Stop: 05/25/21 08:59 Last Admin: 04/26/21 09:24 Dose: Not Given Documented by: [id number] Admin: 04/25/21 10:18 Dose: Not Given Documented by: [id number] Sodium Chloride (Sodium Chloride 0.65% Na Soln 45 Ml ([place])) 2 sprays COREEN BID [facility] Stop: 05/24/21 20:59 Last Admin: 04/26/21 08:44 Dose: 2 sprays Documented by: [id number] Admin: 04/25/21 20:37 Dose: 2 sprays Documented by: [id number] Admin: 04/25/21 09:40 Dose: 2 sprays Documented by: [id number] Admin: 04/24/21 21:20 Dose: 2 sprays Documented by: [id number] Discontinued Medications Sodium Chloride (Nss 1000ml) 1,000 mls @ 999 mls/hr IV .Q1H1M ONE Stop: 04/24/21 13:58 Last Infusion: 04/24/21 15:21 Dose: 0 mls/hr Documented by: [id number] Admin: 04/24/21 13:42 Dose: 999 mls/hr Documented by: [id number] Ceftriaxone Sodium (Rocephin) 1,000 mg in 50 mls @ 100 mls/hr IV NOW STA Stop: 04/24/21 14:28 Last Infusion: 04/24/21 14:50 Dose: 0 mls/hr Documented by: [id number] Admin: 04/24/21 14:18 Dose: 100 mls/hr Documented by: [id number] Sodium Chloride (Nss) 500 mls @ 999 mls/hr IV .Q31M ONE Stop: 04/24/21 15:41 Last Infusion: 04/24/21 17:37 Dose: 0 mls/hr Documented by: [id number] Admin: 04/24/21 15:30 Dose: 999 mls/hr Documented by: [id number] Sodium Chloride (Nss 1000ml) 1,000 mls @ 100 mls/hr IV .Q10H [facility] Stop: 04/25/21 06:14 Last Infusion: 04/25/21 06:38 Dose: 0 mls/hr Documented by: [id number] Admin: 04/24/21 21:00 Dose: 100 mls/hr Documented by: [id number] Dextrose (D5w) 1,000 mls @ 75 mls/hr IV .A01H17N [facility] Stop: 05/25/21 07:44 Last Infusion: 04/25/21 19:25 Dose: 0 mls/hr Documented by: [id number] Admin: 04/25/21 09:34 Dose: 75 mls/hr Documented by: [id number]
[2021-04-26] MEDS: DEXTROSE 5% 1,000 ML IV SCH (16:57)
[2021-04-26 21:13] LABS: Calcium 10.7 mg/dl (8.5-10.1); Creatinine Clr Calc Pharmacy 57.7 ml/min; Est GFR (African American) 90.4 ml/min; Potassium 4.2 mmol/L (3.5-5.1)
[2021-04-26] MEDS: DOCUSATE SODIUM/SENNA 50/8.6MG TAB PO SCH (21:56)
[2021-04-27] MEDS: DEXTROSE 5% 1,000 ML IV SCH ×3 (01:35→22:20)
[2021-04-27] MEDS: LEVOTHYROXINE SODIUM 100 MCG TABLET PO SCH (05:30)
[2021-04-27] MEDS: LINACLOTIDE 145 MCG CAPSULE PO SCH (05:30)
[2021-04-27 08:07] LABS: Hemoglobin 11.8 g/dL (12.0-16.0); Mean Corpuscular Hemoglobin 28.7 pg (25-34); Mean Corpuscular Hgb Conc 31.1 g/dL (32-36); Mean Corpuscular Volume 92.5 fL (80-100); Mean Platelet Volume 11.9 fL (7.4-10.4); Platelet Count 188 K/uL (130-400); RDW Coefficient of Variation 14.5 % (11.5-14.5); RDW Standard Deviation 49.5 fL (36.4-46.3); Red Blood Count 4.11 M/uL (4.2-5.4); White Blood Count 6.79 K/uL (4.8-10.8)
[2021-04-27 08:22] LABS: BUN Creatinine Ratio 27.7 (10-20); Calcium 9.8 mg/dl (8.5-10.1); Creatinine Clr Calc Pharmacy 66.6 ml/min; Est GFR (African American) 100.7 ml/min; Est GFR (Non-African American) 86.8 ml/min; Potassium 3.6 mmol/L (3.5-5.1)
[2021-04-27] MEDS: FLUTICASONE PROPIONATE NA SPR 16 GM BTL NAE SCH (08:45)
[2021-04-27] MEDS: HEPARIN SOD 5,000 UNIT/0.5 ML VIAL SQ SCH ×2 (08:45→20:10)
[2021-04-27] MEDS: SODIUM CHLORIDE 0.65% NA SOLN 45 ML (OCEAN) NAE SCH ×2 (08:46→20:09)
[2021-04-27] MEDS: lamoTRIgine 25 MG TAB PO SCH ×2 (08:48→20:09)
[2021-04-27] MEDS: METHENAMINE HIPPURATE 1 GM TAB PO SCH ×2 (08:48→20:08)
[2021-04-27] MEDS: lamoTRIgine 100 MG TAB PO SCH ×2 (08:50→20:09)
[2021-04-27] MEDS: levETIRAcetam 500 MG TAB PO SCH ×2 (08:50→20:09)
[2021-04-27] MEDS: ASPIRIN 81 MG ECTAB PO SCH (08:51)
[2021-04-27] MEDS: CEROVITE ADV FORMULA TAB PO SCH (10:01)
[2021-04-27] MEDS: LORATADINE 10 MG TAB PO SCH (10:01)
--- NOTE | 2021-04-27 12:14 | Hospitalist Progress Note ---
Date of Service April 27, 2021 Assessment & Plan (1) Lethargy: (2) Acute dehydration: (3) High serum calcium: (4) MAHIN (acute kidney injury): (5) Abnormal urinalysis: (6) Seizure disorder: (7) Intellectual disability: (8) Interstitial lung disease: Plan: This is a 76yo F with a PMH of cerebral palsy with intellectual impairment, chronic diastolic congestive heart failure, interstitial lung disease, history of seizure disorder, hypothyroidism, urinary retention with chronic indwelling Alvarado catheter, recurrent UTIs and on chronic methenamine suppression treatment, history of constipation and other medical problems listed below who presents with lethargy and concern for infection and was found to have hypernatremia and acute kidney injury. Lethargy Acute dehydration Hypernatremia -> resolving Lethargy and decreased appetite x 2 days, decreased PO intake (only 24 oz reported fluids daily) -> improving per nursing. Increasing food intake, more alert Recently transitioned from [facility] to the [facility], still adjusting to new care providers Afebrile, no leukocytosis, lactate wnl Admitting Sodium 147, chloride 110, calcium 12.5 CT head motion degraded exam without acute intracranial abnormality. Chronic findings as above. Received 3L of of NS, Na 153 today with improvement in renal function, then switched to D5W 80cc/hr Na improved to 152 on 04/25, increase rate to 100cc/hr + 20meq KCL, discussed with Dr. Perez who has been consulted on her before and felt no further work up needed as it is related to free water deficit, will take time to correct Na improved to 149 -> 143 today, more alert Continue minced and moist diet, per speech recommendations. Continue aspiration precautions UTI Urine culture growing proteus mirababils Sensitive to Rocephin, will continue Rocephin through tomorrow, 04/28, for 5 day treatment History of recurrent UTIs with indwelling catheter (catheter changed in ER) Acute kidney injury -> resolved Cr elevated at 1.95 (baseline ~ 1) in setting of dehydration Improving to 32 and 0.77, resolving IVF D5W + 20meq KCL 100cc/hr Lasix on hold Continue fluid resuscitation, avoid nephrotoxic agents Repeat BMP in AM Hypercalcemia Ca 12.5 on admission improving 10.2 today Hypokalemia replaced with IVF will return fluids to IV D5W @ 100cc/hr Seizure disorder Follows with [facility] neuro Continue Lamictal, Keppra Chronic constipation Continue linzess add senna S Cerebral palsy Intellectual disability Mostly nonverbal except for a few words, wheelchair bound, can feed herself when alert and at baseline CHF lasix currently on hold monitor closely appears euvolemic monitor volume status Interstitial lung disease Continue baseline 2L NC O2 DVT Ppx: SQ heparin Code status: FULL. Confirmed with brother Barry and Joyce ([phone]) PCP: Maia Dispo: Admitted to med/surg, pt to remain hospitalized, not yet medically stable Patient seen in collaboration with Dr. Oshea. Please see addendum. Plan is to return back to the [facility] when stable. Pt goes by "Liz." Admission and Anticipated Discharge Date Admission Date: April 24, 2021 Supervising Physician Co-Signing Physician Notes Pt was seen and examined. Agreed with Kady exam, assessment and plan. Lying in bed and see to be comfortable. Na continues to improve. Will continue IVF. Discussed with Nephrology that recommended to hold diuresis on discharge. Continue monitor TREVER. MD Dorie Subjective Patient was seen and examined in room 385-2. Follow up acute dehydration and hypernatremia. ROS unobtainable secondary to cognitive status. She is lying in bed. She is arousable and groaning to touch. Per nursing report, patient eating better last night at supper and this morning. Still not drinking enough fluids, following up with speech therapy to see if there is recommendation for thickened. Review of Systems Review of Systems: Unobtainable due to cognitive status Physical Exam Physical Exam: Gen: WD/WN, Elderly, Drowsy, NAD, arousable to touch but nonverbal, groans HEENT: Normocephalic, atraumatic, conjunctivae moist, sclerae anicteric, mucous membranes moist Lung: Clear to Auscultation bilaterally, no wheezes/rales/rhonchi on 2L O2 NC Heart: Regular rate, regular rhythm, no M/G/R Abdomen: Soft, NT, ND +BS x 4 Extremities: No edema Skin: Warm, no rash, negative turgor : Alvarado with yellow urine output Results & Data Results & Data ([facility]) Vital Signs (Past 12 Hours) Vital Signs Temp Pulse Resp BP Pulse Ox 04/27/21 07:29 36.8 C 96 H 18 160/82 H 100 Laboratory Results Short CBC 04/27/21 Range/Units 07:37 WBC 6.79 (4.8-10.8) K/uL Hgb 11.8 L (12.0-16.0) g/dL Hct 38.0 (37-47) % Plt Count 188 (130-400) K/uL BMP 04/26/21 04/26/21 04/27/21 14:07 20:25 07:37 Sodium 149 H 148 H 143 Potassium 4.2 4.2 3.6 Chloride 117 H 116 H 111 H Carbon Dioxide 27 27 29 BUN 32 H 29 H 18 Creatinine 0.77 0.75 0.65 Glucose 113 H 129 H 129 H Calcium 10.2 H 10.7 H 9.8 Diagnostic Findings Chest X-Ray 04/24/21 12:58 XR chest 1V portable CLINICAL HISTORY: Altered mental status. COMPARISON STUDY: Chest radiograph April 04, 2021. Chest CT August 13, 2019. FINDINGS: Asymmetric interstitial thickening, greater within the right lung, with volume loss is unchanged. No pneumothorax or pleural effusion is noted. Elevation of the right hemidiaphragm is unchanged. Cardiomediastinal silhouette is unchanged. There is no consolidation to suggest superimposed pneumonia. IMPRESSION: No acute cardiopulmonary findings. No change in appearance of the chest. Asymmetric interstitial lung disease, greater within the right lung. ACT 112: Negative or not required by law. Electronically signed by: Jacobo Falk M.D. 04/24/2021 2:[address] 04/24/21 12:58 CT head/brain wo con CLINICAL HISTORY: 75 years-old Female with ams. Acutely altered mental status TECHNIQUE: Multiple axial CT images of the head were obtained without contrast. A dose lowering technique was utilized adhering to the principles of ALARA. CT DOSE: 1247.19 mGy.cm COMPARISON: 01/07/2020 FINDINGS: Motion degraded exam. The study was then repeated which was also motion degraded. Again noted is absence of the corpus callosum and septum pellucidum with associated cerebral and cerebellar atrophy. No acute intracranial hemorrhage, midline shift, intracranial mass, hydrocephalus, territorial ischemia or abnormal extra-axial collection. Cerebral vascular calcifications. The calvarium is intact. Prior bilateral lens repair is suggested. The paranasal sinuses, mastoid air cells, and middle ear cavities are clear. IMPRESSION: 1. Motion degraded exam without acute intracranial abnormality. 2. Chronic findings as above. ACT 112: Negative or not required by law. The above report was generated using voice recognition software. It may contain grammatical, syntax or spelling errors. Electronically signed by: Segun Delgado M.D. 04/24/2021 2:16 PM Venous Doppler Study 04/25/21 14:06 RIGHT UPPER EXTREMITY VENOUS DOPPLER HISTORY: Right upper extremity edema, r/o dvt COMPARISON STUDY: None. FINDINGS: Suboptimal evaluation of the right upper extremity venous system due to the patient's contractions. The right internal jugular vein is patent. There is normal flow within the right subclavian vein. There is normal flow and compressibility within the right axillary, basilic, brachial, radial, ulnar, and visualized cephalic veins. IMPRESSION: No definite DVT within the right upper extremity. ACT 112: Negative or not required by law. Electronically signed by: Juan Carlos Garcia M.D. 04/25/2021 3:20 PM
[2021-04-27] MEDS: cefTRIAXone SODIUM 1,000 MG in DEXTROSE 5% 50 ML IV SCH (12:58)
[2021-04-27] MEDS: DOCUSATE SODIUM/SENNA 50/8.6MG TAB PO SCH (20:09)
[2021-04-28] MEDS: LINACLOTIDE 145 MCG CAPSULE PO SCH (05:55)
[2021-04-28] MEDS: LEVOTHYROXINE SODIUM 100 MCG TABLET PO SCH (05:55)
[2021-04-28 08:38] LABS: Hematocrit (blood only) 32.7 % (37-47); Hemoglobin 10.3 g/dL (12.0-16.0); Mean Corpuscular Hemoglobin 28.4 pg (25-34); Mean Corpuscular Hgb Conc 31.5 g/dL (32-36); Mean Corpuscular Volume 90.1 fL (80-100); Platelet Count 197 K/uL (130-400); RDW Coefficient of Variation 14.3 % (11.5-14.5); RDW Standard Deviation 47.9 fL (36.4-46.3); Red Blood Count 3.63 M/uL (4.2-5.4); White Blood Count 5.49 K/uL (4.8-10.8)
[2021-04-28] MEDS: DEXTROSE 5% 1,000 ML IV SCH (08:38)
[2021-04-28] MEDS: LORATADINE 10 MG TAB PO SCH (09:00)
[2021-04-28] MEDS: lamoTRIgine 100 MG TAB PO SCH ×2 (09:00→21:33)
[2021-04-28] MEDS: CEROVITE ADV FORMULA TAB PO SCH (09:00)
[2021-04-28] MEDS: lamoTRIgine 25 MG TAB PO SCH ×2 (09:00→21:34)
[2021-04-28] MEDS: ASPIRIN 81 MG ECTAB PO SCH (09:01)
[2021-04-28] MEDS: FLUTICASONE PROPIONATE NA SPR 16 GM BTL NAE SCH (09:01)
[2021-04-28] MEDS: METHENAMINE HIPPURATE 1 GM TAB PO SCH ×2 (09:01→21:34)
[2021-04-28] MEDS: HEPARIN SOD 5,000 UNIT/0.5 ML VIAL SQ SCH ×2 (09:02→21:32)
[2021-04-28] MEDS: levETIRAcetam 500 MG TAB PO SCH ×2 (09:02→21:34)
[2021-04-28] MEDS: SODIUM CHLORIDE 0.65% NA SOLN 45 ML (OCEAN) NAE SCH ×2 (09:02→21:35)
[2021-04-28 09:22] LABS: BUN Creatinine Ratio 21.7 (10-20); Calcium 10.1 mg/dl (8.5-10.1); Creatinine Clr Calc Pharmacy 58.5 ml/min; Est GFR (African American) 91.9 ml/min; Est GFR (Non-African American) 79.3 ml/min; Potassium 3.3 mmol/L (3.5-5.1)
[2021-04-28] MEDS ORDERED: POTASSIUM CHLORIDE CRTAB 20 MEQ TABCR PO STA (11:08)
[2021-04-28] MEDS: cefTRIAXone SODIUM 1,000 MG in DEXTROSE 5% 50 ML IV SCH (11:50)
[2021-04-28] MEDS ORDERED: DOCUSATE SODIUM/SENNA 50/8.6MG TAB PO ONE (13:03)
--- NOTE | 2021-04-28 17:28 | Hospitalist Progress Note ---
Date of Service April 28, 2021 Assessment & Plan (1) Lethargy: (2) Acute dehydration: (3) High serum calcium: (4) MAHIN (acute kidney injury): (5) Abnormal urinalysis: (6) Seizure disorder: (7) Intellectual disability: (8) Interstitial lung disease: Plan: This is a 76yo F with a PMH of cerebral palsy with intellectual impairment, chronic diastolic congestive heart failure, interstitial lung disease, history of seizure disorder, hypothyroidism, urinary retention with chronic indwelling Alvarado catheter, recurrent UTIs and on chronic methenamine suppression treatment, history of constipation and other medical problems listed below who presents with lethargy and concern for infection and was found to have hypernatremia and acute kidney injury. Lethargy Acute dehydration Hypernatremia -> resolving Lethargy and decreased appetite x 2 days, decreased PO intake (only 24 oz reported fluids daily) -> improving per nursing. Increasing food intake, more alert Recently transitioned from [facility] to the [facility], still adjusting to new care providers Afebrile, no leukocytosis, lactate wnl Admitting Sodium 147, chloride 110, calcium 12.5 CT head motion degraded exam without acute intracranial abnormality. Chronic findings as above. Received 3L of of NS, Na 153 today with improvement in renal function, then switched to D5W 80cc/hr Na improved to 152 on 04/25, increase rate to 100cc/hr + 20meq KCL, discussed with Dr. Perez who has been consulted on her before and felt no further work up needed as it is related to free water deficit, will take time to correct Na improved to 149 -> 143 -> 138 Will discontinue IV fluids, encourage PO intake with assistance Continue minced and moist diet, per speech recommendations. Continue aspiration precautions UTI History of recurrent UTIs with indwelling catheter (catheter changed in ER) Urine culture grew proteus mirababils Sensitive to Rocephin, completed 5 day course Constipation Chronic issue for patient No documented bowel movement since arrival, patient unable to provide answer Abdomen distended but non-tender Discussed need to get patient to bedside commode with nursing staff Continue linzess Added Senna S BID Acute kidney injury -> resolved Cr elevated at 1.95 (baseline ~ 1) in setting of dehydration Improving to 32 and 0.77, resolving IVF D5W + 20meq KCL 100cc/hr Lasix on hold Continue fluid resuscitation, avoid nephrotoxic agents Repeat BMP in AM Hypercalcemia -> resolved Ca 12.5 on admission improving 10.2 today Hypokalemia Replaced with IVF Seizure disorder Follows with [facility] neuro Continue Lamictal, Keppra Cerebral palsy Intellectual disability Mostly nonverbal except for a few words, wheelchair bound, can feed herself when alert and at baseline CHF lasix currently on hold monitor closely appears euvolemic monitor volume status Interstitial lung disease Continue baseline 2L NC O2 DVT Ppx: SQ heparin Code status: FULL. Confirmed with brother Barry and Joyce ([phone]) PCP: Maia Dispo: Admitted to med/surg, pt to remain hospitalized, not yet medically stable Patient seen in collaboration with Dr. Oshea. Please see addendum. Plan is to return back to the [facility] when stable. Pt goes by "Liz." Admission and Anticipated Discharge Date Admission Date: April 24, 2021 Supervising Physician Co-Signing Physician Notes Pt was seen and examined. Agreed with Kady exam, assessment and plan. Lying in b ed and see to be comfortable. Na continues to improve. Will consider to discontinue IVF. Discussed with Nephrology that recommended to hold diuresis on discharge. Continue monitor BMP. MD Dorie Subjective Patient was seen and examined in room 385-2. Follow up acute dehydration and hypernatremia. ROS unobtainable secondary to cognitive status. She is lying in bed. She is arousable and groaning to touch. Per nursing report, patient eating better last night at supper and this morning. No recorded bowel movement since admission. Discussed with the [facility], who said patient needs to be on bedside commode for BM- cannot go on bed andersen. Discussed with RN. Review of Systems Review of Systems: Unobtainable due to cognitive status Physical Exam Physical Exam: Gen: WD/WN, Elderly, Drowsy, NAD, arousable to touch but nonverbal, groans HEENT: Normocephalic, atraumatic, conjunctivae moist, sclerae anicteric, mucous membranes moist Lung: Clear to Auscultation bilaterally, no wheezes/rales/rhonchi on 2L O2 NC Heart: Regular rate, regular rhythm, no M/G/R Abdomen: Soft but distended, non-tender +BS x 4 Extremities: No edema Skin: Warm, no rash, negative turgor : Alvarado with yellow urine output Results & Data Results & Data ([facility]) Vital Signs (Past 12 Hours) Vital Signs Temp Pulse Resp BP BP Pulse Ox 04/28/21 15:45 36.5 C 70 18 105/50 L 98 04/28/21 11:52 36.4 C L 66 18 126/56 L 97 04/28/21 08:00 36.8 C 72 22 97/52 L 100 Laboratory Results Short CBC 04/28/21 Range/Units 08:12 WBC 5.49 (4.8-10.8) K/uL Hgb 10.3 L (12.0-16.0) g/dL Hct 32.7 L (37-47) % Plt Count 197 (130-400) K/uL BMP 04/28/21 08:12 Sodium 138 Potassium 3.3 L Chloride 106 Carbon Dioxide 28 BUN 16 Creatinine 0.74 Glucose 108 H Calcium 10.1 Diagnostic Findings Chest X-Ray 04/24/21 12:58 XR chest 1V portable CLINICAL HISTORY: Altered mental status. COMPARISON STUDY: Chest radiograph April 04, 2021. Chest CT August 13, 2019. FINDINGS: Asymmetric interstitial thickening, greater within the right lung, with volume loss is unchanged. No pneumothorax or pleural effusion is noted. Elevation of the right hemidiaphragm is unchanged. Cardiomediastinal silhouette is unchanged. There is no consolidation to suggest superimposed pneumonia. IMPRESSION: No acute cardiopulmonary findings. No change in appearance of the chest. Asymmetric interstitial lung disease, greater within the right lung. ACT 112: Negative or not required by law. Electronically signed by: Jacobo Falk M.D. 04/24/2021 2:[address] 04/24/21 12:58 CT head/brain wo con CLINICAL HISTORY: 75 years-old Female with ams. Acutely altered mental status TECHNIQUE: Multiple axial CT images of the head were obtained without contrast. A dose lowering technique was utilized adhering to the principles of ALARA. CT DOSE: 1247.19 mGy.cm COMPARISON: 01/07/2020 FINDINGS: Motion degraded exam. The study was then repeated which was also motion degraded. Again noted is absence of the corpus callosum and septum pellucidum with associated cerebral and cerebellar atrophy. No acute intracranial hemorrhage, midline shift, intracranial mass, hydrocephalus, territorial ischemia or abnormal extra-axial collection. Cerebral vascular calcifications. The calvarium is intact. Prior bilateral lens repair is suggested. The paranasal sinuses, mastoid air cells, and middle ear cavities are clear. IMPRESSION: 1. Motion degraded exam without acute intracranial abnormality. 2. Chronic findings as above. ACT 112: Negative or not required by law. The above report was generated using voice recognition software. It may contain grammatical, syntax or spelling errors. Electronically signed by: Segun Delgado M.D. 04/24/2021 2:16 PM Venous Doppler Study 04/25/21 14:06 RIGHT UPPER EXTREMITY VENOUS DOPPLER HISTORY: Right upper extremity edema, r/o dvt COMPARISON STUDY: None. FINDINGS: Suboptimal evaluation of the right upper extremity venous system due to the patient's contractions. The right internal jugular vein is patent. There is normal flow within the right subclavian vein. There is normal flow and compressibility within the right axillary, basilic, brachial, radial, ulnar, and visualized cephalic veins. IMPRESSION: No definite DVT within the right upper extremity. ACT 112: Negative or not required by law. Electronically signed by: Juan Carlos Garcia M.D. 04/25/2021 3:20 PM
[2021-04-28] MEDS: DOCUSATE SODIUM/SENNA 50/8.6MG TAB PO SCH (21:32)
[2021-04-29] MEDS: LEVOTHYROXINE SODIUM 100 MCG TABLET PO SCH (05:52)
[2021-04-29] MEDS: LINACLOTIDE 145 MCG CAPSULE PO SCH (05:52)
[2021-04-29] MEDS: FLUTICASONE PROPIONATE NA SPR 16 GM BTL NAE SCH (09:31)
[2021-04-29] MEDS: levETIRAcetam 500 MG TAB PO SCH ×2 (09:31→21:52)
[2021-04-29] MEDS: lamoTRIgine 25 MG TAB PO SCH ×2 (09:31→21:52)
[2021-04-29] MEDS: LORATADINE 10 MG TAB PO SCH (09:31)
[2021-04-29] MEDS: HEPARIN SOD 5,000 UNIT/0.5 ML VIAL SQ SCH ×2 (09:31→21:50)
[2021-04-29] MEDS: lamoTRIgine 100 MG TAB PO SCH ×2 (09:31→21:51)
[2021-04-29] MEDS: SODIUM CHLORIDE 0.65% NA SOLN 45 ML (OCEAN) NAE SCH ×2 (09:31→21:53)
[2021-04-29] MEDS: CEROVITE ADV FORMULA TAB PO SCH (09:32)
[2021-04-29] MEDS: METHENAMINE HIPPURATE 1 GM TAB PO SCH ×2 (09:32→21:52)
[2021-04-29] MEDS: ASPIRIN 81 MG ECTAB PO SCH (09:32)
[2021-04-29] MEDS: DOCUSATE SODIUM/SENNA 50/8.6MG TAB PO SCH ×2 (15:35→21:50)
[2021-04-29] MEDS: POLYETHYLENE (MIRALAX) 17 GM PACK PO PRN (21:56)
--- NOTE | 2021-04-29 23:42 | Hospitalist Progress Note ---
Date of Service April 29, 2021 Assessment & Plan (1) Lethargy: (2) Acute dehydration: (3) High serum calcium: (4) MAHIN (acute kidney injury): (5) Abnormal urinalysis: (6) Seizure disorder: (7) Intellectual disability: (8) Interstitial lung disease: Plan: This is a 76yo F with a PMH of cerebral palsy with intellectual impairment, chronic diastolic congestive heart failure, interstitial lung disease, history of seizure disorder, hypothyroidism, urinary retention with chronic indwelling Alvarado catheter, recurrent UTIs and on chronic methenamine suppression treatment, history of constipation and other medical problems listed below who presents with lethargy and concern for infection and was found to have hypernatremia and acute kidney injury. Lethargy Acute dehydration Hypernatremia -> resolving Lethargy and decreased appetite x 2 days, decreased PO intake (only 24 oz reported fluids daily) -> improving per nursing. Increasing food intake, more alert Recently transitioned from [facility] to the [facility], still adjusting to new care providers Afebrile, no leukocytosis, lactate wnl Admitting Sodium 147, chloride 110, calcium 12.5 CT head motion degraded exam without acute intracranial abnormality. Chronic findings as above. Received 3L of of NS, Na 153 today with improvement in renal function, then switched to D5W 80cc/hr Na improved to 152 on 04/25, increase rate to 100cc/hr + 20meq KCL, discussed with Dr. Perez who has been consulted on her before and felt no further work up needed as it is related to free water deficit, will take time to correct Na improved to 149 -> 143 -> 138 Will discontinue IV fluids, encourage PO intake with assistance Continue minced and moist diet, per speech recommendations. Continue aspiration precautions UTI History of recurrent UTIs with indwelling catheter (catheter changed in ER) Urine culture grew proteus mirababils Sensitive to Rocephin, completed 5 day course Constipation Chronic issue for patient No documented bowel movement since arrival, patient unable to provide answer Abdomen distended but non-tender Discussed need to get patient to bedside commode with nursing staff Continue linzess We will add Dulcolax Acute kidney injury -> resolved Cr elevated at 1.95 (baseline ~ 1) in setting of dehydration Improving to 32 and 0.77, resolving IVF D5W + 20meq KCL 100cc/hr Lasix on hold Continue fluid resuscitation, avoid nephrotoxic agents Repeat BMP in AM Hypercalcemia -> resolved Ca 12.5 on admission improving 10.2 today Hypokalemia Replaced with IVF Seizure disorder Follows with [facility] neuro Continue Lamictal, Keppra Cerebral palsy Intellectual disability Mostly nonverbal except for a few words, wheelchair bound, can feed herself when alert and at baseline CHF lasix currently on hold monitor closely appears euvolemic monitor volume status Interstitial lung disease Continue baseline 2L NC O2 DVT Ppx: SQ heparin Code status: FULL. Confirmed with brother Barry and Joyce ([phone]) PCP: Maia Dispo: Admitted to med/surg, pt to remain hospitalized, not yet medically stable Plan is to return back to the [facility] when stable. Pt goes by "Liz." Admission and Anticipated Discharge Date Admission Date: April 24, 2021 Subjective Patient was seen and examined for follow-up of hyponatremia and dehydration Lying in bed resting comfortable As per nurse patient did not have a bowel movement today Review of Systems Review of Systems: All systems reviewed & are unremarkable except as noted in Subjective Physical Exam Physical Exam: Gen: WD/WN, Elderly, Drowsy, NAD, arousable to touch but nonverbal, groans HEENT: Normocephalic, atraumatic, conjunctivae moist, sclerae anicteric, mucous membranes moist Lung: Clear to Auscultation bilaterally, no wheezes/rales/rhonchi on 2L O2 NC Heart: Regular rate, regular rhythm, no M/G/R Abdomen: Soft, NT, ND +BS x 4 Extremities: No edema Skin: Warm, no rash, negative turgor : Alvarado with yellow urine output Results & Data Results & [facility] ([facility]) Vital Signs (Past 12 Hours) Vital Signs Temp Pulse Resp BP Pulse Ox 04/29/21 22:40 36.7 C 72 24 158/83 H 94 04/29/21 15:30 36.6 C 84 24 98/63 L 67 L
[2021-04-29] MEDS ORDERED: bisacodyL 5 MG TABEC PO ONE (23:46)
[2021-04-30] MEDS: LINACLOTIDE 145 MCG CAPSULE PO SCH (06:05)
[2021-04-30] MEDS: LEVOTHYROXINE SODIUM 100 MCG TABLET PO SCH (06:05)
[2021-04-30 07:05] LABS: Hematocrit (blood only) 30.8 % (37-47); Hemoglobin 9.4 g/dL (12.0-16.0); Mean Corpuscular Hemoglobin 28.5 pg (25-34); Mean Corpuscular Hgb Conc 30.5 g/dL (32-36); Mean Corpuscular Volume 93.3 fL (80-100); Mean Platelet Volume 11.6 fL (7.4-10.4); Platelet Count 215 K/uL (130-400); RDW Coefficient of Variation 14.6 % (11.5-14.5); RDW Standard Deviation 49.7 fL (36.4-46.3); White Blood Count 4.96 K/uL (4.8-10.8)
[2021-04-30 07:54] LABS: BUN Creatinine Ratio 20.7 (10-20); Calcium 10.1 mg/dl (8.5-10.1); Creatinine Clr Calc Pharmacy 55.5 ml/min; Est GFR (African American) 86.2 ml/min; Est GFR (Non-African American) 74.4 ml/min
[2021-04-30] MEDS: POLYETHYLENE (MIRALAX) 17 GM PACK PO PRN (09:41)
[2021-04-30] MEDS: FLUTICASONE PROPIONATE NA SPR 16 GM BTL NAE SCH (09:41)
[2021-04-30] MEDS: lamoTRIgine 25 MG TAB PO SCH ×2 (09:41→20:13)
[2021-04-30] MEDS: levETIRAcetam 500 MG TAB PO SCH ×2 (09:41→20:13)
[2021-04-30] MEDS: SODIUM CHLORIDE 0.65% NA SOLN 45 ML (OCEAN) NAE SCH ×2 (09:41→20:14)
[2021-04-30] MEDS: ASPIRIN 81 MG ECTAB PO SCH (09:42)
[2021-04-30] MEDS: lamoTRIgine 100 MG TAB PO SCH ×2 (09:42→20:14)
[2021-04-30] MEDS: HEPARIN SOD 5,000 UNIT/0.5 ML VIAL SQ SCH ×2 (09:42→20:13)
[2021-04-30] MEDS: LORATADINE 10 MG TAB PO SCH (09:42)
[2021-04-30] MEDS: METHENAMINE HIPPURATE 1 GM TAB PO SCH ×2 (09:42→20:13)
[2021-04-30] MEDS: CEROVITE ADV FORMULA TAB PO SCH (09:42)
[2021-04-30] MEDS: DOCUSATE SODIUM/SENNA 50/8.6MG TAB PO SCH ×2 (09:44→20:13)
--- NOTE | 2021-04-30 17:00 | XRay Report ---
KUB CLINICAL HISTORY: Abdominal distention. COMPARISON STUDY: CT of the abdomen and pelvis March 06, 2021. KUB March 07, 2021. FINDINGS: Right hip arthroplasty is incidentally noted. There are also bladder calculi. Marked gaseou s distention of the distal colon is again noted. This has been shown on multiple prior exams. This is similar to KUB of March 07, 2021. There is mild gaseous distention of small bowel. Pattern is si milar to prior exam. Although sensitivity is diminished on this supine exam, there is no evidence for free air. There is a moderate to large amount of poorly formed stool within the colon and rectum. IMPRESSION: 1. Significant large bowel dilatation, similar to multiple prior exams. 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 Mild small bowel dilatation is also unchanged. 2. Moderate to large amount of poorly formed stool within the colon and rectum. 3. Bladder calculi. ACT 112: Negative or not required by law. Electronically signed by: Jacobo Falk M.D. 04/30/2021 4:59 PM
[2021-04-30] MEDS ORDERED: bisacodyL 10 MG SUPP PR ONE (17:25)
--- NOTE | 2021-04-30 20:52 | Hospitalist Progress Note ---
Date of Service April 30, 2021 Assessment & Plan (1) Lethargy: (2) Acute dehydration: (3) High serum calcium: (4) MAHIN (acute kidney injury): (5) Abnormal urinalysis: (6) Seizure disorder: (7) Intellectual disability: (8) Interstitial lung disease: Plan: This is a 76yo F with a PMH of cerebral palsy with intellectual impairment, chronic diastolic congestive heart failure, interstitial lung disease, history of seizure disorder, hypothyroidism, urinary retention with chronic indwelling Rodriguez catheter, recurrent UTIs and on chronic methenamine suppression treatment, history of constipation and other medical problems listed below who presents with lethargy and concern for infection and was found to have hypernatremia and acute kidney injury. Lethargy Metabolic encephalopathy Acute dehydration Hypernatremia -> resolving Lethargy and decreased appetite x 2 days, decreased PO intake (only 24 oz reported fluids daily) -> improving per nursing. Increasing food intake, more alert Recently transitioned from [facility] to the [facility], still adjusting to new care providers Afebrile, no leukocytosis, lactate wnl Admitting Sodium 147, chloride 110, calcium 12.5 CT head motion degraded exam without acute intracranial abnormality. Chronic findings as above. Received 3L of of NS, Na 153 today with improvement in renal function, then switched to D5W 80cc/hr Na improved to 152 on 04/25, increase rate to 100cc/hr + 20meq KCL, discussed with Dr. Perez who has been consulted on her before and felt no further work up needed as it is related to free water deficit, will take time to correct Na improved to 149 -> 143 -> 138 Will discontinue IV fluids, encourage PO intake with assistance Continue minced and moist diet, per speech recommendations. Continue aspiration precautions UTI Possible UTI due to chronic rodriguez catheter History of recurrent UTIs with indwelling catheter (catheter changed in ER) Urine culture grew proteus mirababils Sensitive to Rocephin, completed 5 day course Constipation Chronic issue for patient No documented bowel movement since arrival, patient unable to provide answer Abdomen distended but non-tender KUB showed significant large bowel dilatation, similar to multiple prior exams. Therefore, this favors a chronic ileus. Mild small bowel dilatation is also unchanged. Moderate to large amount of poorly formed stool within the colon and rectum. Continue laxative and stool softener Acute kidney injury Cr elevated at 1.95 (baseline ~ 1) in setting of dehydration Improving to 32 and 0.77, resolving IVF D5W + 20meq KCL 100cc/hr Lasix on hold Continue fluid resuscitation, avoid nephrotoxic agents Resolved Hypercalcemia -> resolved Ca 12.5 on admission improving 10.2 today Hypokalemia K 4.0 Continue monitor BMP Seizure disorder Follows with [facility] neuro Continue Lamictal, Keppra Cerebral palsy Intellectual disability Mostly nonverbal except for a few words, wheelchair bound, can feed herself when alert and at baseline CHF lasix currently on hold monitor closely appears euvolemic monitor volume status Will resume lasix in am Interstitial lung disease Continue baseline 2L NC O2 DVT Ppx: SQ heparin Code status: FULL. Confirmed with brother Barry and Joyce ([phone]) PCP: Maia Dispo: Admitted to med/surg, pt to remain hospitalized, not yet medically stable Plan is to return back to the [facility] when stable. Pt goes by "Liz." Admission and Anticipated Discharge Date Admission Date: April 24, 2021 Subjective Patient was seen and examined for follow-up of hyponatremia and dehydration Lying in bed sleeping comfortable She did not have a bowel movement today Review of Systems Review of Systems: All systems reviewed & are unremarkable except as noted in Subjective Physical Exam Physical Exam: Gen: WD/WN, Elderly, Drowsy, NAD, arousable to touch but non verbal, groans HEENT: Normocephalic, atraumatic, conjunctivae moist, sclerae anicteric, mucous membranes moist Lung: Clear to Auscultation bilaterally, no wheezes/rales/rhonchi on 2L O2 NC Heart: Regular rate, regular rhythm, no M/G/R Abdomen: NT, ND +BS x 4, Non tenderness. Extremities: No edema Skin: Warm, no rash, negative turgor : Rodriguez with yellow urine output Results & Data Results & Data ([facility]) Vital Signs (Past 12 Hours) Vital Signs Temp Pulse Resp BP Pulse Ox 04/30/21 15:52 36.7 C 80 18 129/75 90
[2021-04-30] MEDS ORDERED: MICONAZOLE NITRATE POWDER 43 GM EXT PRN (22:59)
[2021-05-01] MEDS: LEVOTHYROXINE SODIUM 100 MCG TABLET PO SCH (05:32)
[2021-05-01] MEDS: LINACLOTIDE 145 MCG CAPSULE PO SCH (05:32)
[2021-05-01] MEDS ORDERED: LACTATED RINGER'S 1,000 ML IV ONE (06:29)
[2021-05-01 06:59] LABS: Basophils # (auto) 0.02 K/uL (0-0.2); Basophils % (auto) 0.2 %; Eosinophils # (auto) 0.25 K/uL (0-0.5); Eosinophils % (auto) 3.1 %; Hematocrit (blood only) 33.4 % (37-47); Hemoglobin 10.4 g/dL (12.0-16.0); Immature Granulocytes # (auto) 0.02 K/uL (0.00-0.02); Immature Granulocytes % (auto) 0.2 %; Lymphocytes % (auto) 18.7 %; Mean Corpuscular Hemoglobin 28.7 pg (25-34); Mean Corpuscular Hgb Conc 31.1 g/dL (32-36); Mean Platelet Volume 10.7 fL (7.4-10.4); Monocytes % (auto) 8.7 %; Neutrophils # (auto) 5.54 K/uL (1.4-6.5); Neutrophils % (auto) 69.1 %; Platelet Count 225 K/uL (130-400); RDW Coefficient of Variation 14.5 % (11.5-14.5); RDW Standard Deviation 49.1 fL (36.4-46.3); Red Blood Count 3.63 M/uL (4.2-5.4); White Blood Count 8.03 K/uL (4.8-10.8)
[2021-05-01 07:36] LABS: BUN Creatinine Ratio 14.5 (10-20); Calcium 10.1 mg/dl (8.5-10.1); Creatinine Clr Calc Pharmacy 50.3 ml/min; Est GFR (African American) 76.6 ml/min; Est GFR (Non-African American) 66.1 ml/min
[2021-05-01 08:20] LABS: Potassium 4.1 mmol/L (3.5-5.1)
[2021-05-01 08:21] LABS: Magnesium 1.9 mg/dl (1.8-2.4)
[2021-05-01] MEDS: ASPIRIN 81 MG ECTAB PO SCH (10:27)
[2021-05-01] MEDS: FLUTICASONE PROPIONATE NA SPR 16 GM BTL NAE SCH (10:29)
[2021-05-01] MEDS: HEPARIN SOD 5,000 UNIT/0.5 ML VIAL SQ SCH (10:31)
[2021-05-01] MEDS: lamoTRIgine 25 MG TAB PO SCH (10:34)
[2021-05-01] MEDS: lamoTRIgine 100 MG TAB PO SCH (10:35)
[2021-05-01] MEDS: LORATADINE 10 MG TAB PO SCH (10:37)
[2021-05-01] MEDS: levETIRAcetam 500 MG TAB PO SCH (10:38)
[2021-05-01] MEDS: CEROVITE ADV FORMULA TAB PO SCH (10:39)
[2021-05-01] MEDS: SODIUM CHLORIDE 0.65% NA SOLN 45 ML (OCEAN) NAE SCH (10:39)
[2021-05-01] MEDS: METHENAMINE HIPPURATE 1 GM TAB PO SCH (10:42)
[2021-05-01] MEDS: DOCUSATE SODIUM/SENNA 50/8.6MG TAB PO SCH (11:37)
--- NOTE | 2021-05-01 12:01 | Discharge Summary ---
Date of Service May 01, 2021 Admission HPI Per Admitting Provider This is a 76yo F with a PMH of cerebral palsy with intellectual impairment, chronic diastolic congestive heart failure, interstitial lung disease, history of seizure disorder, hypothyroidism, urinary retention with chronic indwelling Alvarado catheter, recurrent UTIs and on chronic methenamine suppression treatment, history of constipation and other medical problems listed below who presents with lethargy and concern for infection. Recently transitioned from [facility] to the [facility], so care providers skill getting to know her. [facility] employee at bedside has only known Minerva for 1 week. The patient is mostly nonverbal at baseline, speaking a few words and grunts. Is wheelchair bound. Has a history of catheter associated urinary tract infections. Caregiver denies any strong odor or hematuria. States Minerva has had decreased PO intake. Is on a fluid restriction of 50 oz but they have only been able to get her to drink 24oz per day since transition to [facility]. No fever, cough or congestion noted. Due to lethargy and decreased interaction, patient was brought into ED for further evaluation. Unable to obtain ROS due to cognitive status. Admission Exam Per Admitting Provider General Appearance:vitals as above, NAD, sitting up in bed, lethargic, not following verbal commands Head: normocephalic, atraumatic Eyes:normal inspection, PERRL, conjunctivae normal, anicteric sclerae ENT: external ear and nose normal, dry oropharynx Neck: normal visual inspection, trachea midline, no thyromegaly Respiratory:normal respiratory effort, lungs clear to auscultation, no wheeze, rales, rhonchi. No accessory muscle use Cardiovascular: regular rate, rhythm, no murmur, normal peripheral pulses, no BLE edema. Vessels: no JVD Chest: normal inspection of chest Abdomen/GI: normoactive bowel sounds, soft, nontender, no hepatosplenomegaly : Alvarado catheter Extremities/Musculoskeletal: no cyanosis or clubbing, extremities motor strength 5/5 Neurologic: PERRL, moves all extremities spontaneously Psychiatric:minimally verbal at baseline, lethargic Skin: no rashes, normal color, warm/dry Principal Diagnosis Hyponatremia MAHIN UTI Metabolic encephalopathy Discharge Exam Constitutional WD/WN, vitals as above no acute distress Respiratory normal respiratory effort, lungs clear to auscultation Cardiovascular Rate/Rhythm: regular rate and regular rhythm Vessels: normal peripheral pulses Extremities: no edema Gastrointestinal (Abdomen) normal bowel sounds, soft, nontender, no hepatosplenomegaly Skin no rashes, warm and dry Neurologic awake Psychiatric Orientation: alert and oriented to person; + not oriented to place and + not oriented to time Genitourinary Alvarado in place Discharge Data Allergies Allergy/AdvReac Type Severity Reaction Status Date / Time No Known Allergies Allergy Unknown Verified 04/24/21 14:48 Consultations Case was discussed with Dr. Perez from nephrology however no formal consult was placed Ordered Studies CXR 04/24/2021 IMPRESSION: No acute cardiopulmonary findings. No change in appearance of the chest. Asymmetric interstitial lung disease, greater within the right lung. Head CT 04/24/2021 IMPRESSION: 1. Motion degraded exam without acute intracranial abnormality. 2. Chronic findings as above. RUE venous Doppler 04/25/2021 IMPRESSION: No definite DVT within the right upper extremity. KUB 04/30/2021 IMPRESSION: 1. Significant large bowel dilatation, similar to multiple prior exams. Therefore, this favors a chronic ileus. Mild small bowel dilatation is also unchanged. 2. Moderate to large amount of poorly formed stool within the colon and rectum. 3. Bladder calculi Hospital Course (1) Hypernatremia: (2) MAHIN (acute kidney injury): (3) Acute UTI: This is a 76yo F with a PMH of cerebral palsy with intellectual impairment, chronic diastolic congestive heart failure, interstitial lung disease, history of seizure disorder, hypothyroidism, urinary retention with chronic indwelling Alvarado catheter, recurrent UTIs and on chronic methenamine suppression treatment, history of constipation and other medical problems listed below who presented with lethargy and concern for infection and was found to have hypernatremia and acute kidney injury. Recently transitioned from [facility] to the [facility], still adjusting to new care providers. Sodium on presentation 147 and peaked at 153, improved after IV fluid administration and was 134 on day of discharge. Discussed with Dr. Perez (nephrology) who has been consulted on her before and felt no further work up needed as it is related to free water deficit. Need to encourage oral intake with assistance and avoid diuretics. Creatinine 1.95 on admission, improved to 0.86 on day of discharge. Had mild hypokalemia for which patient received potassium replacement. Calcium 12.5 on admission, likely due to dehydration, improved to 10.1 on day of discharge. Speech evaluated the patient who recommended minced and moist diet and aspiration precautions. Urine culture grew Proteus mirabilis, patient completed a 5-day course of IV ceftriaxone. Patient with chronic Alvarado catheter in place which was changed on 04/24. Patient also struggled with constipation while admitted, KUB showed a chronic ileus. Patient received bowel regimen and had a bowel movement on 05/01. Remainder of patient's medical problems were stable throughout admission and other home medications should be continued as previously prescribed. Patient stable for discharge back to [facility] with one-to-one care. Total Time Total Time Spent Total Time Spent (In Minutes): 40 Discharge Plan Discharge Items Patient Disposition: Home - Self-Care Reason For Visit: lethargy, dehydration Discharge Diagnosis: Dehydration Activity: Resume your previous activity Non-emergency contact: Primary Care Provider Call non-emergency contact if: you have any medication questions, your pain is not controlled and you have a fever Follow-up/Referrals: Lora Carvalho, [Primary Care Provider] - 05/04/21 12:20 pm (Date & Time 05/04/2021 12:20 PM Provider Elizabeth Leary PA-C Department Family [facility] ) Diet: Regular Diet Comment: Minced and moist diet, aspiration precautions Addtl Attending Provider Instructions: Patient admitted for lethargy and decreased oral intake. Found to have high sodium and abnormal renal function Improved with IV fluids. Evaluated by nephrology who recommends avoiding diuretics in this patient. Encourage oral intake with assistance. Also had UTI for which she completed treatment for while in the hospital. Patient had bowel movement on 05/01. Pending Studies at Discharge: No Stand-Alone Forms: [employer], Smoking Cessation Medications and DC Order Prescriptions: Continued multivitamin [Multiple Vitamins] Tablet 1 tab PO QAM Qty: 0 RF: 0 carbamazepine [Carbatrol] 300 mg Capsule, Er Multiphase 12 Hr 300 mg PO BID Qty: 0 RF: 0 [place] Protectant Ointment 43 % Ointment 1 applic TOPICAL BID Qty: 0 RF: 0 levothyroxine [Synthroid] 100 mcg Tablet 100 mcg PO DAILYBB Qty: 0 RF: 0 methenamine hippurate [Hiprex] 1 gram Tablet 1 g PO BID Qty: 0 RF: 0 aspirin 81 mg Tablet,Chewable 81 mg PO QAM Qty: 0 RF: 0 lamotrigine [Lamictal] 150 mg Tablet 300 mg PO BID RF: 0 Linzess 290 mcg Capsule 290 mcg PO DAILYBB RF: 0 fluticasone propionate [Flonase Allergy Relief] 50 mcg/actuation [place],Suspension 2 spray INTRANASAL QAM RF: 0 lamotrigine 100 mg tablet 50 mg PO BID RF: 0 acetaminophen [Tylenol] 325 mg Tablet 650 mg PO Q4H MDD max 3 gms/24h PRN (Reason: pain/fever) RF: 0 Triple Antibiotic 3.5mg-400 unit- 5,000 unit/gram Ointment 1 applic TOPICAL DIRECTED PRN (Reason: abrasions) RF: 0 guaifenesin [Mucinex] 600 mg Tablet Extended Release 12hr 600 mg PO Q12H PRN (Reason: Congestion) RF: 0 dextromethorphan-guaifenesin 10-200 mg/5 mL Liquid 10 ml PO Q4H PRN (Reason: Cough) RF: 0 hydrocortisone [Proctozone-HC] 2.5 % Cream With Perineal Applicator 1 applic NC BID PRN (Reason: Hemorrhoids) RF: 0 polyethylene glycol 3350 [Miralax] 17 gram/dose Powder 17 g PO BID PRN (Reason: Constipation) RF: 0 loratadine [Claritin] 10 mg Tablet 10 mg PO QAM RF: 0 levetiracetam 500 mg tablet 500 mg PO BID RF: 0 sodium chloride [Saline Mist] 0.65 % aerosol,spray 2 spray INTRANASAL BID RF: 0 Discontinued furosemide 40 mg tablet 80 mg PO QAM PRN (Reason: fluid accumulation) RF: 0 Discharge Orders: Discharge Order (Routine); Ordered 05/01/21 Ordered By: Enedelia Henriquez/Other Patient Handouts: Urinary Tract Infections in Women Admission Data Admit Date/Time: 04/24/21 17:53 Attending Provider: Lul Oshea Admit Provider: Brendon Alejandre Primary Care Provider: Lora Carvalho Other Providers: Brendon lAejandre ; Mahsa Lynn ; Kady Adhikari Other Interventions: Discharge Summary Assessment (RN) Last Done: 05/01/21 12:28
== END 2021-05-01 13:45 | disposition home or self-care (01) | DRG 698 ==
LOC: ED 11:44 → 3N 17:53 → SUATTDRO 17:53 → 3N 19:23
DX: K56.7 Ileus, unspecified; B96.4 Proteus (mirabilis) (morganii) as the cause of diseases classified elsewhere; F79 Unspecified intellectual disabilities; E03.9 Hypothyroidism, unspecified; E86.0 Dehydration; E87.0 Hyperosmolality and hypernatremia; N39.0 Urinary tract infection, site not specified; E83.52 Hypercalcemia; N17.9 Acute kidney failure, unspecified; J44.9 Chronic obstructive pulmonary disease, unspecified; I50.32 Chronic diastolic (congestive) heart failure; G93.41 Metabolic encephalopathy; G80.9 Cerebral palsy, unspecified; G40.909 Epilepsy, unspecified, not intractable, without status epilepticus; Z87.440 Personal history of urinary (tract) infections; T83.511A Infection and inflammatory reaction due to indwelling urethral catheter, initial encounter; Z86.718 Personal history of other venous thrombosis and embolism; K59.00 Constipation, unspecified; Z99.3 Dependence on wheelchair; J84.9 Interstitial pulmonary disease, unspecified

== ENCOUNTER 2021-05-16 12:10 | Inpatient (IN) ==
[2021-05-16] MEDS ORDERED: SODIUM CHLORIDE 0.9% 1000ML 1,000 ML IV ONE ×2 (12:45→15:21)
--- NOTE | 2021-05-16 12:52 | Emergency Department Note ---
Impression & Plan AMS (altered mental status), Acute UTI (urinary tract infection), MAHIN (acute kidney injury), Hypercalcemia, Elevated Tegretol level ED Provider Note NAME: MAHESH LEON AGE: 75 SEX: F : 1945 ARRIVES VIA: Ambulance INFORMANT: Nursing, the patient's caregiver , ED PROVIDER(S): Abhishek Melchor DO CHIEF COMPLAINT: Altered mental status HPI: The patient is a 75-year-old female who presented to the emergency department for an evaluation of altered mental status. The patient was made a priority patient by the nursing staff. The patient no response to painful stimuli. She has a history of cerebral palsy. She was admitted to our facility at the beginning of the month with similar complaints. History was obtained fro m the prehospital personnel as well as the patient's caregiver from her personal correction. Apparently she has been taking her medications but started to have decreased p.o. intake over the last 48 hours. She has been evaluated by the primary care physician in the personal correction. They were trying to find out what the family would want given the patient's chronic decline. She was discharged in our facility and since that time is slowly been decreasing in her mental status as well as taking medications. There is been no known fever. They ordered a urinalysis last week thinking the patient may have another urinary tract infection. On her previous visit she was very dehydrated and fou nd to have significant abnormalities in her kidney function as well as her electrolytes. The caregiver is concerned that this could be the case again. ROS: See above HPI for pertinent positives & negatives. A total of 10 systems reviewed and were otherwise negative. PAST MEDICAL HISTORY: See Below PAST SURGICAL HISTORY: See Below FAMILY HISTORY: See Below SOCIAL HISTORY: See Below HOME MEDICATIONS: See Below ALLERGIES: See Below VITALS: See Below PHYSICAL EXAMINATION: GENERAL: The patient does not answer questions at all. She does respond to painful stimuli with withdrawing from painful stimuli. EYES: The conjunctivae are clear. The pupils are round and reactive. EARS, NOSE, MOUTH AND THROAT: The nose is without any evidence of any deformity. Mucous membranes are dry. NECK: The neck is nontender and supple. RESPIRATORY: Shallow respirations were noted. There is no retractions or abnormal lung sounds. CARDIOVASCULAR: Regular rate and rhythm noted there no murmurs rubs or gallops normal S1 normal S2. GASTROINTESTINAL: The abdomen is soft. Abdomen is nontender. MUSCULOSKELETAL/EXTREMITIES: There is no evidence of gross deformity full range of motion is noted in the hips and shoulders. SKIN: Skin is warm and dry. NEUROLOGIC: The patient does not follow commands. She does not answer questions. I am unable to assess orientation at this time. The patient's left side appears to be contracted somewhat. MEDICAL DECISION MAKING: The patient is a 75-year-old female who presented to emergency department for altered mental status. She does have a history of cerebral palsy. According to her caregiver she has had similar episodes in the past with dehydration and urine infections. She was found to have signs of urinary tract infection on urinalysis. She was treated with IV fluids as well as IV antibiotics. Her carbamazepine level is also elevated. I discussed the patient's laboratory and radiographic studies with the caregiver. She was also found to have elevated calcium. Given her findings as well as her continued altered mental status I discussed her case with [facility] They have agreed to evaluate the patient in the emergency department for further anup gement and disposition. Triage Nursing notes reviewed. Prior medical records reviewed Vital Signs: reviewed and remarkable for low blood pressure. Differential diagnosis: Infection, hypoglycemia, electrolyte abnormalities, overdose, toxicologic, cardiac sources, intracerebral event, neurologic, trauma, as well as other pathologies. ER treatment provided: See below Diagnostics interpreted by me: ECG: EKG was obtained in the emergency department. My interpretation is sinus rhythm at 67 bpm. There is no ectopy. There was no acute ST segment abnormalities noted. This was compared to a tracing from May 042020. No changes were noted. Cardiac Monitoring: An order was placed for continuous cardiac monitoring. The monitor shows a rate of 60 bpm with sinus rhythm. Laboratory studies: As stated above and show below. Imaging studies: See below Consultation(s): I discussed this case with Kady who is on-call for the [facility]. They will evaluate the patient in the emergency department. Past Med/Surg History Medical History (Updated 05/16/21 @ 15:24 by Abhishek Melchor DO) Cerebral palsy Chronic indwelling Alvarado catheter Chronic obstructive pulmonary disease oxygen daily Colon abnormality Alvarado catheter in place History of DVT (deep vein thrombosis) "2002- right lower extremity, completed Coumadin therapy" On 01/30/15 10:26 Francine Mckeon wrote "2003- right lower extremity" History of recurrent UTI (urinary tract infection) Hypothyroidism Intellectual disability Nonverbal On home oxygen therapy 2L N/C at all times Proctitis Pulmonary fibrosis Seizure disorder last was "a couple months ago", "staring type seizures", denies grand mal--on keppra, lamictal and carbamazepine ---follows with Dr. Stoddard Surgical History History of cystoscopy History of total right hip arthroplasty Family History Mother Hypertension Father Heart disease Grandmother Cancer Other Family history unknown Social History Smoking Status: Never smoker Second Hand Exposure: No; Hx Alcohol Use: No Hx Substance Use: No Preferred Language: Hong [place]er Communication Ability: Unable Wardrobe Assistant Required: No Beliefs That Will Affect Care: None marital status: Single Current Living Situation: Other Current Living Situation Comment: [facility] skilled nursing How many Children do You have: 0 Feels Safe at Home: Yes Assistive Devices: Oxygen - Continuous Allergies Allergies Allergy/AdvReac Type Severity Reaction Status Date / Time No Known Allergies Allergy Unknown Verified 05/16/21 14:44 Home Meds Home Medications Medication Instructions Recorded Confirmed multivitamin (Multiple Vitamins) 1 tab PO QAM #0 02/27/11 05/16/21 carbamazepine 300 mg 300 mg PO BID #0 06/29/12 05/16/21 capsule,extended release [id number] (Carbatrol) white petrolatum 43 % topical 1 applic TOPICAL BID #0 11/11/14 05/16/21 ointment (Aloe Republic Protectant Ointment) aspirin 81 mg chewable tablet 81 mg PO QAM #0 07/17/17 05/16/21 levothyroxine 100 mcg tablet 100 mcg PO DAILYBB #0 07/17/17 05/16/21 (Synthroid) methenamine hippurate 1 gram 1 g PO BID #0 07/17/17 05/16/21 tablet (Hiprex) lamotrigine 150 mg tablet 300 mg PO BID 06/11/18 05/16/21 (Lamictal) linaclotide 290 mcg capsule 290 mcg PO DAILYBB 06/11/18 05/16/21 (Linzess) fluticasone propionate 50 2 spray INTRANASAL QAM 10/11/18 05/16/21 mcg/actuation nasal spray,suspension (Flonase Allergy Relief) lamotrigine 100 mg tablet 50 mg PO BID 10/11/18 05/16/21 guaifenesin 600 mg tablet, 600 mg PO Q12H PRN 01/07/20 05/16/21 extended release 12 hr (Mucinex) neomycin-bacitracn Zn-polymyx 3.5 1 applic TOPICAL DIRECTED PRN 01/07/20 05/16/21 mg-400 unit-5,000 unit/gram top oint (Triple Antibiotic) dextromethorphan-guaifenesin 10 10 ml PO Q4H PRN 04/04/21 05/16/21 mg-200 mg/5 mL oral liquid hydrocortisone 2.5 % topical cream 1 applic WA BID PRN 04/04/21 05/16/21 with perineal applicator (Proctozone-HC) loratadine 10 mg tablet (Claritin) 10 mg PO QAM 04/04/21 05/16/21 polyethylene glycol 3350 17 17 g PO BID PRN 04/04/21 05/16/21 gram/dose oral powder (Miralax) levetiracetam 500 mg tablet 500 mg PO BID 04/24/21 05/16/21 sodium chloride 0.65 % nasal spray 2 spray INTRANASAL BID 04/24/21 05/16/21 aerosol (Saline Mist) furosemide 40 mg tablet 80 mg PO QAM 05/16/21 05/16/21 Results & Data (ED) Vital Signs Vital Signs - 24 hr 05/16/21 12:34 05/16/21 13:16 05/16/21 13:45 Temperature 37.0 C 37.2 C Temperature Source Oral Pulse Rate 68 65 64 Pulse Rhythm Regular Pulse Strength Normal Respiratory Rate 20 16 16 Respiratory Depth Normal Blood Pressure 110/54 L 89/64 L 103/45 L Blood Pressure Mean 72 72 64 Blood Pressure Position Lying Pulse Oximetry 98 99 95 Oxygen Delivery Method Nasal Cannula Room Air Nasal Cannula Oxygen Flow Rate 2 2 Sepsis Recent Fever Within 48 Hours No Sepsis New/Unexplained Change in Mental Status Yes Sepsis Action Taken by Nursing No Action Required 05/16/21 14:00 Temperature Temperature Source Pulse Rate 60 Pulse Rhythm Pulse Strength Respiratory Rate 16 Respiratory Depth Blood Pressure 109/48 L Blood Pressure Mean 68 Blood Pressure Position Pulse Oximetry 100 Oxygen Delivery Method Nasal Cannula Oxygen Flow Rate 2 Sepsis Recent Fever Within 48 Hours Sepsis New/Unexplained Change in Mental Status Sepsis Action Taken by Custodial Medications Current Medication List: was personally reviewed by me Laboratory Data Attestation: I reviewed the patient's lab results. Result diagrams: 05/16/21 12:50 05/16/21 12:50 Lab Results 05/16/21 05/16/21 05/16/21 Range/Units 12:50 12:50 12:50 WBC (4.8-10.8) K/uL RBC (4.2-5.4) M/uL Hgb (12.0-16.0) g/dL Hct (37-47) % MCV (80-100) fL MCH (25-34) pg MCHC (32-36) g/dL RDW Std Deviation (36.4-46.3) fL RDW Coeff of Db (11.5-14.5) % Plt Count (130-400) K/uL MPV (7.4-10.4) fL Immature Gran % (Auto) % Neut % (Auto) % Lymph % (Auto) % Dawson % (Auto) % Eos % (Auto) % Baso % (Auto) % Neut # (Auto) (1.4-6.5) K/uL Lymph # (Auto) (1.2-3.4) K/uL Dawson # (Auto) (0.11-0.59) K/uL Eos # (Auto) (0-0.5) K/uL Baso # (Auto) (0-0.2) K/uL Immature Gran # (Auto) (0.00-0.02) K/uL PT (9.0-12.0) Seconds INR (0.9-1.1) APTT (21.0-31.0) Seconds PTT Ratio Sodium 142 (136-145) mmol/L Potassium 4.1 (3.5-5.1) mmol/L Chloride 100 (98-107) mmol/L Carbon Dioxide 35 H (21-32) mmol/L Anion Gap 7.0 (3-11) BUN 27 H (7-18) mg/dl Creatinine 1.28 H (0.6-1.2) mg/dl Est Cr Clr Drug Dosing 34.6 ml/min Est GFR ( Amer) 47.4 ml/min Est GFR (Non-Af Amer) 40.9 ml/min BUN/Creatinine Ratio 21.4 H (10-20) Glucose 85 (70-99) mg/dl Lactate (0.4-2.0) mmol/L Calcium 11.3 H (8.5-10.1) mg/dl Magnesium 2.1 (1.8-2.4) mg/dl Total Bilirubin 0.3 (0.2-1) mg/dl AST 18 (15-37) U/L ALT 27 (12-78) U/L Alkaline Phosphatase 122 H (45-117) U/L Troponin I < 0.015 (0-0.045) ng/ml Total Protein 7.7 (6.4-8.2) gm/dl Albumin 2.9 L (3.4-5.0) gm/dl Globulin 4.8 H (2.5-4.0) gm/dl Albumin/Globulin Ratio 0.6 L (0.9-2) Procalcitonin 0.15 (0-0.5) ng/ml TSH 1.420 (0.300-4.500) uIu/ml Urine Color Urine Appearance Urine pH Ur Specific [place] Urine Protein Urine Glucose (UA) Urine Ketones Urine Blood Urine Nitrite Urine Bilirubin Urine Urobilinogen Ur Leukocyte Esterase Urine WBC (Auto) Urine RBC (Auto) U Hyaline Cast (Auto) U Epithel Cells (Auto) Urine Bacteria (Auto) Ur Renal Epithelial Cell Urine Crystals Calcium Oxalate Crystal Uric Acid Crystals Triple Phos Crystals Other Crystals Amorphous Sediment Granular Casts Waxy Casts RBC Casts WBC Casts Other Casts Urine Mucus Urine Other Urine Trichomonas Urine Yeast Urine Sperm Ur Oval Fat Bodies Carbamazepine 15.5 H* (4-12) mcg/ml SARS-CoV-2, RNA, NAAT (NEGATIVE) 05/16/21 05/16/21 05/16/21 Range/Units 12:50 12:50 12:50 WBC 7.51 (4.8-10.8) K/uL RBC 3.57 L (4.2-5.4) M/uL Hgb 10.4 L (12.0-16.0) g/dL Hct 32.9 L (37-47) % MCV 92.2 (80-100) fL MCH 29.1 (25-34) pg MCHC 31.6 L (32-36) g/dL RDW Std Deviation 51.2 H (36.4-46.3) fL RDW Coeff of Db 15.2 H (11.5-14.5) % Plt Count 231 (130-400) K/uL MPV 9.9 (7.4-10.4) fL Immature Gran % (Auto) 0.1 % Neut % (Auto) 65.8 % Lymph % (Auto) 23.4 % Dawson % (Auto) 8.4 % Eos % (Auto) 1.9 % Baso % (Auto) 0.4 % Neut # (Auto) 4.94 (1.4-6.5) K/uL Lymph # (Auto) 1.76 (1.2-3.4) K/uL Dawson # (Auto) 0.63 H (0.11-0.59) K/uL Eos # (Auto) 0.14 (0-0.5) K/uL Baso # (Auto) 0.03 (0-0.2) K/uL Immature Gran # (Auto) 0.01 (0.00-0.02) K/uL PT 10.1 (9.0-12.0) Seconds INR 1.0 (0.9-1.1) APTT 24.6 (21.0-31.0) Seconds PTT Ratio 0.9 Sodium (136-145) mmol/L Potassium (3.5-5.1) mmol/L Chloride (98-107) mmol/L Carbon Dioxide (21-32) mmol/L Anion Gap (3-11) BUN (7-18) mg/dl Creatinine (0.6-1.2) mg/dl Est Cr Clr Drug Dosing ml/min Est GFR ( Amer) ml/min Est GFR (Non-Af Amer) ml/min BUN/Creatinine Ratio (10-20) Glucose (70-99) mg/dl Lactate 0.6 (0.4-2.0) mmol/L Calcium (8.5-10.1) mg/dl Magnesium (1.8-2.4) mg/dl Total Bilirubin (0.2-1) mg/dl AST (15-37) U/L ALT (12-78) U/L Alkaline Phosphatase (45-117) U/L Troponin I (0-0.045) ng/ml Total Protein (6.4-8.2) gm/dl Albumin (3.4-5.0) gm/dl Globulin (2.5-4.0) gm/dl Albumin/Globulin Ratio (0.9-2) Procalcitonin (0-0.5) ng/ml TSH (0.300-4.500) uIu/ml Urine Color Urine Appearance Urine pH Ur Specific [place] Urine Protein Urine Glucose (UA) Urine Ketones Urine Blood Urine Nitrite Urine Bilirubin Urine Urobilinogen Ur Leukocyte Esterase Urine WBC (Auto) Urine RBC (Auto) U Hyaline Cast (Auto) U Epithel Cells (Auto) Urine Bacteria (Auto) Ur Renal Epithelial Cell Urine Crystals Calcium Oxalate Crystal Uric Acid Crystals Triple Phos Crystals Other Crystals Amorphous Sediment Granular Casts Waxy Casts RBC Casts WBC Casts Other Casts Urine Mucus Urine Other Urine Trichomonas Urine Yeast Urine Sperm Ur Oval Fat Bodies Carbamazepine (4-12) mcg/ml SARS-CoV-2, RNA, NAAT (NEGATIVE) 05/16/21 05/16/21 05/16/21 Range/Units 13:17 13:58 Unknown WBC (4.8-10.8) K/uL RBC (4.2-5.4) M/uL Hgb (12.0-16.0) g/dL Hct (37-47) % MCV (80-100) fL MCH (25-34) pg MCHC (32-36) g/dL RDW Std Deviation (36.4-46.3) fL RDW Coeff of Db (11.5-14.5) % Plt Count (130-400) K/uL MPV (7.4-10.4) fL Immature Gran % (Auto) % Neut % (Auto) % Lymph % (Auto) % Dawson % (Auto) % Eos % (Auto) % Baso % (Auto) % Neut # (Auto) (1.4-6.5) K/uL Lymph # (Auto) (1.2-3.4) K/uL [place] # (Auto) (0.11-0.59) K/uL Eos # (Auto) (0-0.5) K/uL Baso # (Auto) (0-0.2) K/uL Immature Gran # (Auto) (0.00-0.02) K/uL PT (9.0-12.0) Seconds INR (0.9-1.1) APTT (21.0-31.0) Seconds PTT Ratio Sodium (136-145) mmol/L Potassium (3.5-5.1) mmol/L Chloride (98-107) mmol/L Carbon Dioxide (21-32) mmol/L Anion Gap (3-11) BUN (7-18) mg/dl Creatinine (0.6-1.2) mg/dl Est Cr Clr Drug Dosing ml/min Est GFR ( Amer) ml/min Est GFR (Non-Af Amer) ml/min BUN/Creatinine Ratio (10-20) Glucose (70-99) mg/dl Lactate (0.4-2.0) mmol/L Calcium (8.5-10.1) mg/dl Magnesium (1.8-2.4) mg/dl Total Bilirubin (0.2-1) mg/dl AST (15-37) U/L ALT (12-78) U/L Alkaline Phosphatase (45-117) U/L Troponin I (0-0.045) ng/ml Total Protein (6.4-8.2) gm/dl Albumin (3.4-5.0) gm/dl Globulin (2.5-4.0) gm/dl Albumin/Globulin Ratio (0.9-2) Procalcitonin (0-0.5) ng/ml TSH (0.300-4.500) uIu/ml Urine Color Cancelled Yellow Urine Appearance Cancelled Cloudy A Urine pH Cancelled 5.5 Ur Specific [place] Cancelled 1.011 Urine Protein Cancelled 1+ H Urine Glucose (UA) Cancelled Negative Urine Ketones Cancelled Negative Urine Blood Cancelled 2+ H Urine Nitrite Cancelled Negative Urine Bilirubin Cancelled Negative Urine Urobilinogen Cancelled Negative Ur Leukocyte Esterase Cancelled 3+ H Urine WBC (Auto) Cancelled Urine RBC (Auto) Cancelled U Hyaline Cast (Auto) Cancelled U Epithel Cells (Auto) Cancelled Urine Bacteria (Auto) Cancelled Ur Renal Epithelial Cell Cancelled Urine Crystals Cancelled Calcium Oxalate Crystal Cancelled Uric Acid Crystals Cancelled Triple Phos Crystals Cancelled Other Crystals Cancelled Amorphous Sediment Cancelled Granular Casts Cancelled Waxy Casts Cancelled RBC Casts Cancelled WBC Casts Cancelled Other Casts Cancelled Urine Mucus Cancelled Urine Other Cancelled Urine Trichomonas Cancelled Urine Yeast Cancelled Urine Sperm Cancelled Ur Oval Fat Bodies Cancelled Carbamazepine (4-12) mcg/ml SARS-CoV-2, RNA, NAAT NEGATIVE (NEGATIVE) Administered Medications Discontinued Medications Sodium Chloride (Nss 1000ml) 1,000 mls @ 999 mls/hr IV .[id number] ONE Stop: 05/16/21 13:45 Last Infusion: 05/16/21 14:16 Dose: 0 mls/hr Documented by: [id number] Admin: 05/16/21 13:15 Dose: 999 mls/hr Documented by: [id number] Imaging Data Radiologist's Impression: Head CT 05/16/21 12:45 CT head/brain wo con CLINICAL HISTORY: 75 years-old Female with ams. Acutely altered mental status TECHNIQUE: Multiple axial CT images of the head were obtained without contrast. A dose lowering technique was utilized adhering to the principles of ALARA. CT DOSE: 1382.10 mGy.cm COMPARISON: 04/24/2021 FINDINGS: Again noted is absence of the corpus callosum and septum pellucidum with assoc iated cerebral and cerebellar atrophy. No acute intracranial hemorrhage, midline shift, intracranial mass, hydrocephalus, territorial ischemia or abnormal extra- axial collection. Cerebral vascular calcifications. The calvarium is intact. The mastoid air cells are clear. Mild to moderate mucosal thickening of the sphenoid sinuses. IMPRESSION: 1. No acute intracranial abnormality. 2. Chronic findings as above. ACT 112: Negative or not required by law. The above report was generated using voice recognition software. It may contain grammatical, syntax or spelling errors. Electronically signed by: Segun Delgado M.D. 05/16/2021 1:53 PM Chest X-Ray 05/16/21 12:46 XR chest 1V portable HISTORY: 75 years-old Female SEPSIS acute sepsis COMPARISON: Chest radiograph 04/24/2021, CTA chest 08/13/2019. TECHNIQUE: Portable AP view of the chest FINDINGS: Limited exam secondary to rotation and left upper extremity positioning. There is no pneumothorax or large pleural effusion. Unchanged right hemidiaphragmatic elevation. Asymmetric interstitial coarsening of the right lung with associated volume loss is unchanged. Emphysema. Progressive interstitial opacities of the left lung base. Degenerative changes of the shoulders and spine. IMPRESSION: 1. Limited exam secondary to positioning. 2. Emphysema with chronic volume loss and asymmetric fibrosis of the right lung. 3. New interstitial opacities of the left lung base may reflect atelectasis versus pneumonitis. ACT 112: Negative or not required by law. The above report was generated using voice recognition software. It may contain grammatical, syntax or spelling errors. Electronically signed by: Segun Delgado M.D. 05/16/2021 2:10 PM Discharge Plan Visit Data Chief Complaint: Altered Mental Status Stated Complaint: AMS ED Provider: Abhishek Melchor Discharge Problem: AMS (altered mental status), Acute UTI (urinary tract infection), MAHIN (acute kidney injury), Hypercalcemia, Elevated Tegretol level Patient Disposition: Being Evaluated by Hospitalist Forms Stand Alone Forms: [facility] Prescriptions Prescriptions: No Action multivitamin [Multiple Vitamins] Tablet 1 tab PO QAM Qty: 0 RF: 0 carbamazepine [Carbatrol] 300 mg Capsule, Er Multiphase 12 Hr 300 mg PO BID Qty: 0 RF: 0 Aloe Republic Protectant Ointment 43 % Ointment 1 applic TOPICAL BID Qty: 0 RF: 0 levothyroxine [Synthroid] 100 mcg Tablet 100 mcg PO DAILYBB Qty: 0 RF: 0 methenamine hippurate [Hiprex] 1 gram Tablet 1 g PO BID Qty: 0 RF: 0 aspirin 81 mg Tablet,Chewable 81 mg PO QAM Qty: 0 RF: 0 lamotrigine [Lamictal] 150 mg Tablet 300 mg PO BID RF: 0 Linzess 290 mcg Capsule 290 mcg PO DAILYBB RF: 0 fluticasone propionate [Flonase Allergy Relief] 50 mcg/actuation [place],Suspension 2 spray INTRANASAL QAM RF: 0 lamotrigine 100 mg tablet 50 mg PO BID RF: 0 Triple Antibiotic 3.5mg-400 unit- 5,000 unit/gram Ointment 1 applic TOPICAL DIRECTED PRN (Reason: abrasions) RF: 0 guaifenesin [Mucinex] 600 mg Tablet Extended Release 12hr 600 mg PO Q12H PRN (Reason: Congestion) RF: 0 furosemide 40 mg tablet 80 mg PO QAM RF: 0 dextromethorphan-guaifenesin 10-200 mg/5 mL Liquid 10 ml PO Q4H PRN (Reason: Cough) RF: 0 hydrocortisone [Proctozone-HC] 2.5 % Cream With Perineal Applicator 1 applic WA BID PRN (Reason: Hemorrhoids) RF: 0 polyethylene glycol 3350 [Miralax] 17 gram/dose Powder 17 g PO BID PRN (Reason: Constipation) RF: 0 loratadine [Claritin] 10 mg Tablet 10 mg PO QAM RF: 0 levetiracetam 500 mg tablet 500 mg PO BID RF: 0 sodium chloride [Saline Mist] 0.65 % aerosol,spray 2 spray INTRANASAL BID RF: 0 Referrals Referrals: Lora Carvalho DO [Primary Care Provider] -
[2021-05-16 13:16] LABS: Basophils # (auto) 0.03 K/uL (0-0.2); Basophils % (auto) 0.4 %; Eosinophils # (auto) 0.14 K/uL (0-0.5); Eosinophils % (auto) 1.9 %; Hematocrit (blood only) 32.9 % (37-47); Hemoglobin 10.4 g/dL (12.0-16.0); Immature Granulocytes # (auto) 0.01 K/uL (0.00-0.02); Immature Granulocytes % (auto) 0.1 %; Lymphocytes # (auto) 1.76 K/uL (1.2-3.4); Lymphocytes % (auto) 23.4 %; Mean Corpuscular Hemoglobin 29.1 pg (25-34); Mean Corpuscular Hgb Conc 31.6 g/dL (32-36); Mean Corpuscular Volume 92.2 fL (80-100); Mean Platelet Volume 9.9 fL (7.4-10.4); Monocytes # (auto) 0.63 K/uL (0.11-0.59); Monocytes % (auto) 8.4 %; Neutrophils # (auto) 4.94 K/uL (1.4-6.5); Neutrophils % (auto) 65.8 %; Platelet Count 231 K/uL (130-400); RDW Coefficient of Variation 15.2 % (11.5-14.5); RDW Standard Deviation 51.2 fL (36.4-46.3); Red Blood Count 3.57 M/uL (4.2-5.4); White Blood Count 7.51 K/uL (4.8-10.8)
[2021-05-16 13:27] LABS: Partial Thromboplastin Ratio 0.9; Partial Thromboplastin Time 24.6 Seconds (21.0-31.0); Prothrombin Time 10.1 Seconds (9.0-12.0)
[2021-05-16 13:33] LABS: Albumin Level 2.9 gm/dl (3.4-5.0); Aspartate Aminotransferase 18 U/L (15-37); BUN Creatinine Ratio 21.4 (10-20); Blood Urea Nitrogen 27 mg/dl (7-18); Calcium 11.3 mg/dl (8.5-10.1); Carbon Dioxide 35 mmol/L (21-32); Chloride 100 mmol/L (98-107); Creatinine Clr Calc Pharmacy 34.6 ml/min; Est GFR (African American) 47.4 ml/min; Est GFR (Non-African American) 40.9 ml/min; Glucose 85 mg/dl (70-99); Magnesium 2.1 mg/dl (1.8-2.4); Potassium 4.1 mmol/L (3.5-5.1); Sodium 142 mmol/L (136-145)
[2021-05-16 13:44] LABS: Alanine Aminotransferase 27 U/L (12-78); Albumin Globulin Ratio 0.6 (0.9-2); Alkaline Phosphatase 122 U/L (45-117); Bilirubin,Total 0.3 mg/dl (0.2-1); Globulin 4.8 gm/dl (2.5-4.0); Total Protein 7.7 gm/dl (6.4-8.2); Troponin I < 0.015 ng/ml (0-0.045)
--- NOTE | 2021-05-16 13:54 | CT Scan Report ---
CT head/brain wo con CLINICAL HISTORY: 75 years-old Female with ams. Acutely altered mental status TECHNIQUE: Multiple axial CT images of the head were obtained without contrast. A dose lowering tech nique was utilized adhering to the principles of ALARA. CT DOSE: 1382.10 mGy.cm COMPARISON: 04/24/2021 FINDINGS: Again noted is absence of the corpus callosum and septum pellucidum with associated cerebral and cere bellar atrophy. No acute intracranial hemorrhage, midline shift, intracranial mass, hydrocephalus, te rritorial ischemia or abnormal extra-axial collection. Cerebral vascular calcifications. The calvariu m is intact. The mastoid air cells are clear. Mild to moderate mucosal thickening of the sphenoid sin uses. IMPRESSION: 1. No acute intracranial abnormality. 2. Chronic findings as above. ACT 112: Negative or not required by law. The above report was generated using voice recognition software. It may contain grammatical, syntax o r spelling errors. Electronically signed by: Segun Delgado M.D. 05/16/2021 1:53 PM
--- NOTE | 2021-05-16 14:11 | XRay Report ---
XR chest 1V portable HISTORY: 75 years-old Female SEPSIS acute sepsis COMPARISON: Chest radiograph 04/24/2021, CTA chest 08/13/2019. TECHNIQUE: Portable AP view of the chest FINDINGS: Limited exam secondary to rotation and left upper extremity positioning. There is no pneumothorax or large pleural effusion. Unchanged right hemidiaphragmatic elevation. Asymmetric interstitial coarseni ng of the right lung with associated volume loss is unchanged. Emphysema. Progressive interstitial op acities of the left lung base. Degenerative changes of the shoulders and spine. IMPRESSION: 1. Limited exam secondary to positioning. 2. Emphysema with chronic volume loss and asymmetric fibrosis of the right lung. 3. New interstitial opacities of the left lung base may reflect atelectasis versus pneumonitis. ACT 112: Negative or not required by law. The above report was generated using voice recognition software. It may contain grammatical, syntax o r spelling errors. Electronically signed by: Segun Delgado M.D. 05/16/2021 2:10 PM
[2021-05-16] MEDS ORDERED: POLYETHYLENE (MIRALAX) 17 GM PACK PO PRN (14:24)
[2021-05-16] MEDS ORDERED: ALUMINUM/MAGNESIUM SUSP 30 ML UDC PO PRN (14:24)
[2021-05-16] MEDS ORDERED: ONDANSETRON INJ 2 MG/ML 2 ML VIAL IV PRN (14:24)
[2021-05-16] MEDS ORDERED: MAGNESIUM HYDROXIDE SUSP 30 ML UDC PO PRN (14:24)
[2021-05-16] MEDS ORDERED: ACETAMINOPHEN 325 MG TAB PO PRN (14:24)
[2021-05-16 14:54] LABS: Appearance Urine Cloudy (Clear); Bacteria Urine Automated Negative (Negative); Bilirubin Urine Negative (Negative); Blood Urine 2+ (Negative); Color Urine Yellow; Epithelial Cell Urine Auto >30 /lpf (0-5); Glucose Urine UA Negative (Negative); Ketones Urine Negative (Negative); Leukocyte Esterase Urine 3+ (Negative); Nitrite Urine Negative (Negative); Protein Urine 1+ (Negative); Specific Gravity Urine 1.011 (1.000-1.030); Urobilinogen Urine Negative (Negative); WBC Urine Automated >30 /hpf (0-5); pH Urine 5.5 (4.5-7.5)
--- NOTE | 2021-05-16 15:14 | History & Physical Report ---
Date of Service May 16, 2021 Assessment & Plan (1) AMS (altered mental status): (2) Lethargy: (3) MAHIN (acute kidney injury): (4) Hypercalcemia: (5) Elevated Tegretol level: Plan: This is a 75yo F with a PMH of cerebral palsy with intellectual impairment, ch ronic diastolic congestive heart failure, interstitial lung disease, history of seizure disorder, hypothyroidism, urinary retention with chronic indwelling Rodriguez catheter, recurrent UTIs and on chronic methenamine suppression treatment, history of constipation and other medical problems listed below who presents with lethargy and increased confusion x2 days. ddx: acute metabolic encephalopathy 2/2 to MAHIN, infectious etiology, hypercalcemia no apparent neuro focal deficit but given baseline functional status difficult to assess Altered mental status/lethargy MAHIN Baseline creatinine 0.9-1 BUN/creatinine 27 and 1.28 Hold Lasix, avoid nephrotoxic agents Gentle IV fluid half NS D5 at 80 cc/h x 1 additional liter Monitor volume status and repeat BMP in a.m. Blood and urine cultures pending Holding on antibiotics at this point, no apparent infectious etiology as she is afebrile, WBC is WNL if sx do not improve consider MRI brain Recurrent UTIs Chronic indwelling Rodriguez catheter Rodriguez changed today, 05/16/2021 Await urine culture On methenamine as outpatient Hypercalcemia Calcium corrected 12.2 No longer on vitamin D supplements Recent outpatient labs revealed normal PTH and vitamin D level TSH normal Likely secondary to dehydration consider discussing with nephro if minimal improvement in a.m. Seizure disorder Follows with [facility] neuro On Lamictal, Carbamazepine and Keppra no recent sx hx carbamazepine level elevated holding meds until able to tolerate PO, will re evaluate in a.m. can consider IV dosing if needed Cerebral palsy Intellectual disability Mostly nonverbal except for a few words, wheelchair bound, can feed herself when alert and at baseline CHF, Chronic HFpEF echo 2019, moderate av sclerosis lasix currently on hold, likely contributing will need to determine appropriate dosing to maintain fluid balance, consider low dose [facility] staff wishes to obtain establishment with cardiology per staff at discharge pt weight was 162 with lower ext and truncal edema, lasix was resumed to 80mg daily on day of discharge, weight today 152 per [facility] staff monitor closely daily weight, strict I and O will need heart healthy, low sodium diet when able to tolerate po Interstitial lung disease Continue baseline 2L NC O2 no resp sx CXR with LLL Opacity, likely atelectasis, maintaining normal O2 w/o resp sx monitor closely DVT Ppx: SQ heparin Code status: FULL. Confirmed with brother Barry and Joyce ([phone]) PCP: Maia Dispo: Admitted to med/surg, consider obtaining referral to cardiology at outpt to enroll pt in HF clinic to assist in fluid management Patient seen in collaboration with Dr. Christensen. Please see addendum. Plan is to return back to the [facility] when stable. Pt goes by "Liz," or "Minerva Palumbo" History of Present Illness Chief Complaint: Altered mental status, lethargy x 2 days. Primary Care Provider: Lora Carvalho, DO This is a 75yo F with a PMH of cerebral palsy with intellectual impairment, chronic diastolic congestive heart failure, interstitial lung disease, history of seizure disorder, hypothyroidism, urinary retention with chronic indwelling Rodriguez catheter, recurrent UTIs and on chronic methenamine suppression treatment, history of constipation and other medical problems listed below who presents with lethargy and increased confusion x2 days. Of significance patient recently hospitalized 04/24-05/01 secondary to acute kidney injury, hypernatremia and UTI. Her acute kidney injury and hyponatremia was felt to be secondary to combination of Lasix therapy along with poor p.o. intake. She was treated with gentle IV hydration and her sodium levels slowly declined and her renal function slowly improved. Her UTI was treated with IV antibiotics. She did have difficulty with constipation, but no bowel movement on day of discharge. Since being discharged from the hospital to [facility] she had been doing well except she had an increase in weight 162 pounds. Per staff at bedside that is 10 pounds more than usual. It was also noted she had increased distention in abdomen and increased swelling in lower extremities. She was restarted back on her Lasix 80 mg daily the day after discharge. They also had her on a 56oz fluid restriction. She has gradually declined, eating less and becoming nonverbal. At baseline she is able to say short yes no answers and, "cookie feel better." At baseline typically she is alert, arousable and either bedbound or in a wheelchair. [facility] noticed over the last several days patient chewing on straw and almost like she does not know what to do with it. She is rooting for food but will pocketed and not swallow it. They have had significant difficulty getting any amount of fluid into her the past couple days. They have been pipetting 5 mL of fluid in at a time she will take. Today she weighed 152 and now swelling. ROS unobtainable from pt but provided from lead care manager at bedside. District Ranger at bedside is concerned as they are doing everything they can for patient. They are concerned about frequent hospitalizations and being unaware of how to appropriately manage her CHF. In ED patient was initially hypotensive. Upon my evaluation she was hemodynamically stable. Lab work shows stable H&H at 10.4 and 32.9, WBC 7.51, s he is afebrile, BUN/creatinine elevated at 27 and 1.28, hypocalcemic at 11.3 and a urinalysis uncertain of infection. Her chest x-ray revealed left basilar opacity concerning for pneumonitis versus atelectasis. Head CT was negative for acute abnormality. She received IV fluid in ED. Allergies Allergy/AdvReac Type Severity Reaction Status Date / Time No Known Allergies Allergy Unknown Verified 05/16/21 14:44 Home Medications Medication Instructions Recorded Confirmed Type multivitamin (Multiple Vitamins) 1 tab PO QAM #0 02/27/11 05/16/21 History carbamazepine 300 mg 300 mg PO BID #0 06/29/12 05/16/21 History capsule,extended release [id number] (Carbatrol) white petrolatum 43 % topical 1 applic TOPICAL BID #0 11/11/14 05/16/21 History ointment (Aloe Bascom Protectant Ointment) aspirin 81 mg chewable tablet 81 mg PO QAM #0 07/17/17 05/16/21 History levothyroxine 100 mcg tablet 100 mcg PO DAILYBB #0 07/17/17 05/16/21 History (Synthroid) methenamine hippurate 1 gram 1 g PO BID #0 07/17/17 05/16/21 History tablet (Hiprex) lamotrigine 150 mg tablet 300 mg PO BID 06/11/18 05/16/21 History (Lamictal) linaclotide 290 mcg capsule 290 mcg PO DAILYBB 06/11/18 05/16/21 History (Linzess) fluticasone propionate 50 2 spray INTRANASAL QAM 10/11/18 05/16/21 History mcg/actuation nasal spray,suspension (Flonase Allergy Relief) lamotrigine 100 mg tablet 50 mg PO BID 10/11/18 05/16/21 History guaifenesin 600 mg tablet, 600 mg PO Q12H PRN 01/07/20 05/16/21 History extended release 12 hr (Mucinex) neomycin-bacitracn Zn-polymyx 3.5 1 applic TOPICAL DIRECTED PRN 01/07/20 History mg-400 unit-5,000 unit/gram top oint (Triple Antibiotic) dextromethorphan-guaifenesin 10 10 ml PO Q4H PRN 04/04/21 05/16/21 History mg-200 mg/5 mL oral liquid hydrocortisone 2.5 % topical cream 1 applic ID BID PRN 04/04/21 05/16/21 History with perineal applicator (Proctozone-HC) loratadine 10 mg tablet (Claritin) 10 mg PO QAM 04/04/21 05/16/21 History polyethylene glycol 3350 17 17 g PO BID PRN 04/04/21 05/16/21 History gram/dose oral powder (Miralax) levetiracetam 500 mg tablet 500 mg PO BID 04/24/21 05/16/21 History sodium chloride 0.65 % nasal spray 2 spray INTRANASAL BID 04/24/21 05/16/21 History aerosol (Saline Mist) furosemide 40 mg tablet 80 mg PO QAM 05/16/21 05/16/21 History Past Med/Surg History Medical History Cerebral palsy Chronic indwelling Rodriguez catheter Chronic obstructive pulmonary disease oxygen daily Colon abnormality Rodriguez catheter in place History of DVT (deep vein thrombosis) "2002- right lower extremity, completed Coumadin therapy" On 01/30/15 10:26 Francine Mckeon wrote "2002- right lower extremity" History of recurrent UTI (urinary tract infection) Hypothyroidism Intellectual disability Nonverbal On home oxygen therapy 2L N/C at all times Proctitis Pulmonary fibrosis Seizure disorder last was "a couple months ago", "staring type seizures", denies grand mal--on keppra, lamictal and carbamazepine ---follows with Dr. Stoddard Surgical History History of cystoscopy History of total right hip arthroplasty Family History Mother Hypertension Father Heart disease Grandmother Cancer Other Family history unknown Social History Smoking Status: Never smoker Second Hand Exposure: No; Hx Alcohol Use: No Hx Substance Use: No Preferred Language: Panamanian Communication Ability: Unable Special Education Secretary Required: No Beliefs That Will Affect Care: None marital status: Single Current Living Situation: Other Current Living Situation Comment: [facility] halfway How many Children do You have: 0 Feels Safe at Home: Yes Assistive Devices: Oxygen - Continuous Review of Systems Review of Systems: Unobtainable due to cognitive status Physical Exam Physical Exam: Constitutional: WD/WN, female, eyes closed, not arousable to verbal or tactile stimulation, vitals as above, NAD Head: Normocephalic, Atraumatic Eyes: PERRL, conjunctivae normal, anicteric sclerae ENMT: external ear and nose normal, oropharynx normal membranes dry Neck: trachea midline, no thyromegaly normal visual inspection Respiratory: normal respiratory effort, lungs clear to auscultation, no wheeze, rales, rhonchi. Normal insp/exp effort, no accessory muscle use Cardiovascular: RRR, 2/6 PARISA RUSB, no edema Vessels: no JVD or carotid bruit Chest: normal inspection of chest Abdomen: normal bowel sounds, soft, nontender, no hepatosplenomegaly Musculoskeletal: no cyanosis or clubbing, extremities with contractures of bilateral hands Skin: no rashes, warm and dry normal turgor Neurologic: Unable to assess due to mental status Psychiatric: Lethargic Lymphatic: no cervical or axillary lymphadenopathy : Rodriguez catheter draining yellow urine Results & Data Results & Data ([facility]) Vital Signs (Past 12 Hours) Vital Signs Temp Pulse Resp BP Pulse Ox 05/16/21 14:00 60 16 109/48 L 100 05/16/21 13:45 64 16 103/45 L 95 05/16/21 13:16 37.2 C 65 16 89/64 L 99 05/16/21 12:34 37.0 C 68 20 110/54 L [address] 05/16/21 12:45 CT head/brain wo con CLINICAL HISTORY: 75 years-old Female with ams. Acutely altered mental status TECHNIQUE: Multiple axial CT images of the head were obtained without contrast. A dose lowering technique was utilized adhering to the principles of ALARA. CT DOSE: 1382.10 mGy.cm COMPARISON: 04/24/2021 FINDINGS: Again noted is absence of the corpus callosum and septum pellucidum with associated cerebral and cerebellar atrophy. No acute intracranial hemorrhage, midline shift, intracranial mass, hydrocephalus, territorial ischemia or abnormal extra-axial collection. Cerebral vascular calcifications. The calvarium is intact. The mastoid air cells are clear. Mild to moderate mucosal thickening of the sphenoid sinuses. IMPRESSION: 1. No acute intracranial abnormality. 2. Chronic findings as above. ACT 112: Negative or not required by law. The above report was generated using voice recognition software. It may contain grammatical, syntax or spelling errors. Electronically signed by: Segun Delgado M.D. 05/16/2021 1:53 PM Chest X-Ray 05/16/21 12:46 XR chest 1V portable HISTORY: 75 years-old Female SEPSIS acute sepsis COMPARISON: Chest radiograph 04/24/2021, CTA chest 08/13/2019. TECHNIQUE: Portable AP view of the chest FINDINGS: Limited exam secondary to rotation and left upper extremity positioning. There is no pneumothorax or large pleural effusion. Unchanged right hemidiaphragmatic elevation. Asymmetric interstitial coarsening of the right lung with associated volume loss is unchanged. Emphysema. Progressive interstitial opacities of the left lung base. Degenerative changes of the shoulders and spine. IMPRESSION: 1. Limited exam secondary to positioning. 2. Emphysema with chronic volume loss and asymmetric fibrosis of the right lung. 3. New interstitial opacities of the left lung base may reflect atelectasis versus pneumonitis. ACT 112: Negative or not required by law. The above report was generated using voice recognition software. It may contain grammatical, syntax or spelling errors. Electronically signed by: Segun Delgado M.D. 05/16/2021 2:10 PM Medications Administered Medication List Discontinued Medications Sodium Chloride (Nss 1000ml) 1,000 mls @ 999 mls/hr IV .Q1H1M ONE Stop: 05/16/21 13:45 Last Infusion: 05/16/21 14:16 Dose: 0 mls/hr Documented by: [id number] Admin: 05/16/21 13:15 Dose: 999 mls/hr Documented by: [id number] ECG Rate (beats per minute): 67 Rhythm: normal sinus COVID-19 Results Results COVID-19 Adm Lab Results: RBC 3.57 M/uL (4.2-5.4) L 05/16/21 WBC 7.51 K/uL (4.8-10.8) 05/16/21 Hgb 10.4 g/dL (12.0-16.0) L 05/16/21 Hct 32.9 % (37-47) L 05/16/21 Plt Count 231 K/uL (130-400) 05/16/21 Neutrophils (%) (Auto) 65.8 % 05/16/21 Lymphocytes (%) (Auto) 23.4 % 05/16/21 Monocytes # (Auto) 0.63 K/uL (0.11-0.59) H 05/16/21 Eosinophils # (Auto) 0.14 K/uL (0-0.5) 05/16/21 Immature Granulocyte % (Auto) 0.1 % 05/16/21 Neutrophils # (Auto) 4.94 K/uL (1.4-6.5) 05/16/21 Lymphocytes # (Auto) 1.76 K/uL (1.2-3.4) 05/16/21 Monocytes # (Auto) 0.63 K/uL (0.11-0.59) H 05/16/21 Eosinophils # (Auto) 0.14 K/uL (0-0.5) 05/16/21 Basophils # (Auto) 0.03 K/uL (0-0.2) 05/16/21 Immature Granulocyte # (Auto) 0.01 K/uL (0.00-0.02) 05/16/21 Na 142 mmol/L (136-145) 05/16/21 K 4.1 mmol/L (3.5-5.1) 05/16/21 Cl 100 mmol/L (98-107) 05/16/21 CO2 35 mmol/L (21-32) H 05/16/21 Anion Gap 7.0 (3-11) 05/16/21 BUN 27 mg/dl (7-18) H 05/16/21 Creatinine 1.28 mg/dl (0.6-1.2) H 05/16/21 BUN/Creatinine Ratio 21.4 (10-20) H 05/16/21 Glucose Level 85 mg/dl (70-99) 05/16/21 Ca 11.3 mg/dl (8.5-10.1) H 05/16/21 Total Bilirubin 0.3 mg/dl (0.2-1) 05/16/21 AST/SGOT 18 U/L (15-37) 05/16/21 ALT/SGPT 27 U/L (12-78) 05/16/21 Alkaline Phosphatase 122 U/L (45-117) H 05/16/21 Total Protein 7.7 gm/dl (6.4-8.2) 05/16/21 Albumin 2.9 gm/dl (3.4-5.0) L 05/16/21 Globulin 4.8 gm/dl (2.5-4.0) H 05/16/21 Albumin/Globulin Ratio 0.6 (0.9-2) L 05/16/21 Troponin I < 0.015 ng/ml (0-0.045) 05/16/21 Procalcitonin 0.15 ng/ml (0-0.5) 05/16/21 PTT 24.6 Seconds (21.0-31.0) 05/16/21 INR 1.0 (0.9-1.1) 05/16/21 SARS-CoV-2, RNA, NAAT NEGATIVE (NEGATIVE) 05/16/21 Chest X-Ray 05/16/21 Code Status & VTE Plan Code Status FULL CODE VTE Prophylaxis Plan VTE Prophylaxis will be ordered: Yes Supervising Physician Co-Signing Physician Notes Pt is a 75 y/o F with hx of cerebral palsy with intellectual impairment, Hx of Seizure, Interstitial lung disease on home oxygen 2L, Hypothyroidism, HFpEF, recurrent UTI on chronic rodriguez, CKD III, mostly bed bound brought into the hospital from halfway for decreased PO intake and confusion. Exam: -pt is non verbal -Cardiac: Normal S1/S2, with systolic murmur -Lungs: good air entry b/l with possible rales -Abd: ND, soft -MSK: contracted L hand A/P: Decreased PO intake and possible confusion: -difficult to assess neuro exam due to pt being non verbal and unable to follow commands -will get UCx and BCx - CT head: no acute finding - will start the pt on D5 NS 80 cc/hr - no elevated WBC: will wait for UCx before treatment -I do believe pt would benefit from palliative consult --- her decreased PO intake with confusion could be due to worsening dementia MAHIN: -s/p fluid resuscitation -will monitor BMP Agree with A/P by Mahsa Lynn PA-C (1) AMS (altered mental status) Altered mental status type: unspecified Qualified Code(s): R41.82 - Altered mental status, unspecified
[2021-05-16] MEDS ORDERED: cefTRIAXone SODIUM 1,000 MG/50 ML BAG IV STA (15:20)
[2021-05-16] MEDS ORDERED: D5W AND 1/2NSS 1,000 ML IV SCH (20:19)
[2021-05-17] MEDS: HEPARIN SOD 5,000 UNIT/0.5 ML VIAL SQ SCH ×4 (00:50→20:34)
[2021-05-17] MEDS: DAPTOmycin 300 MG in SYRINGE 0 ML IV SCH (07:54)
[2021-05-17] MEDS ORDERED: guaiFENesin/DEXTROM SYRUP 200MG/20MG 10ML UDC PO PRN (09:17)
[2021-05-17 09:25] LABS: Basophils # (auto) 0.03 K/uL (0-0.2); Basophils % (auto) 0.5 %; Eosinophils # (auto) 0.24 K/uL (0-0.5); Hematocrit (blood only) 34.4 % (37-47); Hemoglobin 10.7 g/dL (12.0-16.0); Immature Granulocytes # (auto) 0.01 K/uL (0.00-0.02); Immature Granulocytes % (auto) 0.2 %; Lymphocytes # (auto) 1.39 K/uL (1.2-3.4); Lymphocytes % (auto) 22.9 %; Mean Corpuscular Hemoglobin 28.9 pg (25-34); Mean Corpuscular Hgb Conc 31.1 g/dL (32-36); Mean Platelet Volume 10.1 fL (7.4-10.4); Monocytes # (auto) 0.52 K/uL (0.11-0.59); Monocytes % (auto) 8.6 %; Neutrophils # (auto) 3.87 K/uL (1.4-6.5); Neutrophils % (auto) 63.8 %; Platelet Count 215 K/uL (130-400); RDW Coefficient of Variation 14.7 % (11.5-14.5); RDW Standard Deviation 50.2 fL (36.4-46.3); White Blood Count 6.06 K/uL (4.8-10.8)
[2021-05-17] MEDS: lamoTRIgine 25 MG TAB PO SCH ×2 (09:44→20:33)
[2021-05-17] MEDS: METHENAMINE HIPPURATE 1 GM TAB PO SCH ×2 (09:45→20:33)
[2021-05-17] MEDS: LEVOTHYROXINE SODIUM 100 MCG TABLET PO SCH (09:45)
[2021-05-17] MEDS: LINACLOTIDE 145 MCG CAPSULE PO SCH (09:45)
[2021-05-17] MEDS: lamoTRIgine 100 MG TAB PO SCH ×2 (09:45→20:33)
[2021-05-17] MEDS: POLYETHYLENE (MIRALAX) 17 GM PACK PO SCH ×2 (09:46→20:36)
[2021-05-17 10:26] LABS: BUN Creatinine Ratio 25.7 (10-20); Calcium 10.9 mg/dl (8.5-10.1); Creatinine Clr Calc Pharmacy 53.4 ml/min; Est GFR (African American) 79.9 ml/min; Magnesium 1.9 mg/dl (1.8-2.4); Potassium 3.5 mmol/L (3.5-5.1)
--- NOTE | 2021-05-17 11:54 | Hospitalist Progress Note ---
Date of Service May 17, 2021 Assessment & Plan (1) AMS (altered mental status): (2) Lethargy: (3) MAHIN (acute kidney injury): (4) Hypercalcemia: (5) Elevated Tegretol level: Plan: This is a 75yo F with a PMH of cerebral palsy with intellectual impairment, ch ronic diastolic congestive heart failure, interstitial lung disease, history of seizure disorder, hypothyroidism, urinary retention with chronic indwelling Alvarado catheter, recurrent UTIs and on chronic methenamine suppression treatment, history of constipation and other medical problems listed below who presents with lethargy and increased confusion x2 days. ddx: acute metabolic encephalopathy 2/2 to MAHIN, infectious etiology, hypercalcemia no apparent neuro focal deficit but given baseline functional status difficult to assess Altered mental status/lethargy MAHIN Baseline creatinine 0.9-1 BUN/creatinine 27 and 1.28 on admission Improved today to 21 and 0.83 Hold Lasix, avoid nephrotoxic agents Received Gentle IV fluid half NS D5 at 80 cc/h x 1 L (received additional 1 L in ED) will order additional 1L of 1/2 NS @ 80cc/hr + 20meq kcl Monitor volume status and repeat BMP in a.m. Blood and urine cultures pending mental status is improving, she is alert and interactive this morning shaking head no Positive Blood Culture 1 of 2 1/2 blood culture + gram + cocci Received Ceftriaxone in ED Started on IV daptomycin repeat cultures ordered she remains afebrile, wbc wnl MRSA PCR negative Recurrent UTIs Chronic indwelling Alvarado catheter Alvarado changed today, 05/16/2021 Await urine culture -growing gram-negative bacilli Again afebrile and WBC WNL, possible colonization On methenamine as outpatient Hypercalcemia Calcium corrected 11.8 No longer on vitamin D supplements Recent outpatient labs revealed normal PTH and vitamin D level TSH normal Likely secondary to dehydration Discussed with Dr. Morse who recommends continued hydration, recommend follow up with Dr. Perez in 4-6wks after discharge Seizure disorder Follows with [facility] neuro On Lamictal, Carbamazepine and Keppra no recent sx hx carbamazepine level elevated continue home meds Cerebral palsy Intellectual disability Mostly nonverbal except for a few words, wheelchair bound, can feed herself when alert and at baseline CHF, Chronic HFpEF echo 2019, moderate av sclerosis lasix currently on hold, likely contributing will need to determine appropriate dosing to maintain fluid balance, consider low dose [facility] staff wishes to obtain establishment with cardiology per staff at discharge pt weight was 162lb with lower ext and truncal edema, lasix was resumed to 80mg daily on day of discharge, weight today 152 per [facility] staff monitor closely daily weight, strict I and O will need heart healthy, low sodium diet when able to tolerate po Interstitial lung disease R Pneumonia - possible aspiration Continue baseline 2L NC O2 no resp sx CXR with LLL Opacity, likely atelectasis, maintaining normal O2 w/o resp sx increased crackles this morning CXR repeat: Interval worsening of interstitial opacities involving the right hemithorax with no confluent alveolar opacities identified. The left hemithorax is now clear repeat procal aspiration precautions add IV unasyn to IV daptomycin DVT Ppx: SQ heparin Code status: FULL. Confirmed with brother Barry and Joyce ([phone]) PCP: Maia Dispo: Admitted to med/surg, consider obtaining referral to cardiology at outpt to enroll pt in HF clinic to assist in fluid management; also pt will need 4-6 week f/u with Dr. Perez nephro Patient seen in collaboration with Dr. Anderson. Please see addendum. Plan is to return back to the [facility] when stable. Pt goes by "Liz," or "Minerva Palumbo" Admission and Anticipated Discharge Date Admission Date: May 16, 2021 Supervising Physician Co-Signing Physician Notes Pt seen and examined by me, care coordinated w/ Jaiden Lynn PA-C, pls refer to her note above for further detail. Patient is currently lying in bed, she is able to shake her head yes or no. Not able to obtain review of systems as patient is otherwise nonverbal. She looks comfortable. On physical exam, patient is awake, her hands are contracted. Heart sounds regular. Lung sounds with rhonchi especially on the right side. Abdomen seems nontender nondistended,w/ + positive bowel sounds. Obtained chest x-ray to evaluate abnormal lung exam. Concern for possible aspiration, added Unasyn. IV fluids discussed with nephrology. 1 blood culture positive, at this point not clear if contaminant, continue daptomycin for now. Herson Anderson MD Subjective Patient was seen and examined in room 387. Follow-up MAHIN and dehydration. Patient is alert and more arousable this morning. She does shake her head no. She denies pain. ROS unreliable given underlying cognition. Review of Systems Review of Systems: Unobtainable due to cognitive status Physical Exam Physical Exam: Gen: WD/WN, alert, arousable, shakes head no, not oriented, moaning HEENT: Normocephalic, atraumatic, conjunctivae moist, sclerae anicteric, mucous membranes moist. Lung: Clear to Auscultation bilaterally, bilateral crackles noted, no wheeze or rhonchi, remains on 3 L of oxygen Heart: Regular rate, regular rhythm, no murmurs, rubs, or gallops Abdomen: Soft, NT, ND +BS x 4 Extremities: No edema Skin: Warm, no rash, negative turgor. Results & Data Results & Data ([facility]) Vital Signs (Past 12 Hours) Vital Signs Pulse Resp BP Pulse Ox 05/17/21 09:29 72 18 137/78 99 Laboratory Results Short CBC 05/16/21 05/16/21 05/17/21 Range/Units 12:50 12:50 09:07 WBC 7.51 6.06 (4.8-10.8) K/uL Hgb 10.4 L 10.7 L (12.0-16.0) g/dL Hct 32.9 L 34.4 L (37-47) % Plt Count 231 215 (130-400) K/uL Creatinine 1.28 H (0.6-1.2) mg/dl Calcium 11.3 H (8.5-10.1) mg/dl 05/17/21 Range/Units 09:07 WBC (4.8-10.8) K/uL Hgb (12.0-16.0) g/dL Hct (37-47) % Plt Count (130-400) K/uL Creatinine 0.83 D (0.6-1.2) mg/dl Calcium 10.9 H (8.5-10.1) mg/dl BMP 05/16/21 05/17/21 12:50 09:07 Sodium 142 142 Potassium 4.1 3.5 Chloride 100 101 Carbon Dioxide 35 H 33 H BUN 27 H 21 H Creatinine 1.28 H 0.83 D Glucose 85 97 Calcium 11.3 H 10.9 H Cardiac Enzymes 05/16/21 Range/Units 12:50 Troponin I < 0.015 (0-0.045) ng/ml Liver Function 05/16/21 Range/Units 12:50 Total Bilirubin 0.3 (0.2-1) mg/dl AST 18 (15-37) U/L ALT 27 (12-78) U/L Alkaline Phosphatase 122 H (45-117) U/L Albumin 2.9 L (3.4-5.0) gm/dl Urine 05/16/21 05/16/21 Range/Units 13:17 13:58 Urine Color Cancelled Yellow Urine Appearance Cancelled Cloudy A Urine pH Cancelled 5.5 Ur Specific Calvin Cancelled 1.011 Urine Protein Cancelled 1+ H Urine Glucose (UA) Cancelled Negative Medications Administered Current Inpatient Medications Acetaminophen (Acetaminophen 325 Mg Tab) 650 mg PO Q4H PRN PRN Reason: pain/fever Stop: 06/15/21 14:23 Al Hydrox/Mg Hydrox/Simethicone (Aluminum/Magnesium Susp 30 Ml Udc) 30 ml PO Q6H PRN PRN Reason: Dyspepsia Stop: 06/15/21 14:23 Aspirin (Aspirin 81 Mg Chew) 81 mg PO QAM [facility] Stop: 06/17/21 08:59 Fluticasone Propionate (Fluticasone Propionate Na Spr 16 Gm Btl) 2 sprays NA [facility] Stop: 06/17/21 08:59 Guaifenesin/Dextromethorphan (Guaifenesin/Dextrom Syrup 200mg/20mg 10ml Udc) 10 ml PO Q4H PRN PRN Reason: Cough Stop: 06/16/21 09:16 Heparin Sodium (Porcine) (Heparin Sod 5,000 Unit/0.5 Ml Vial) 5,000 units SQ Q8 [facility] Stop: 06/15/21 21:59 Last Admin: 05/17/21 07:55 Dose: 5,000 units Documented by: Daptomycin 300 mg/ Syringe 6 mls @ 3 mls/min IV Q24H [facility]; Protocol Stop: 05/31/21 06:59 Last Admin: 05/17/21 07:54 Dose: 3 mls/min Documented by: Potassium Chloride/Dextrose/Sod Cl (D5w And 1/2nss + 20meq Kcl) 20 meq in 1,000 mls @ 80 mls/hr IV .[id number] [facility] Stop: 05/18/21 00:59 Last Admin: 05/17/21 12:59 Dose: 80 mls/hr Documented by: Ampicillin Sodium/Sulbactam Sodium 3,000 mg/ Sodium Chloride 108 mls @ 200 mls/hr IV Q6H [facility]; Protocol Stop: 05/24/21 13:14 Lamotrigine (Lamotrigine 100 Mg Tab) 300 mg PO BID [facility] Stop: 06/16/21 09:29 Last Admin: 05/17/21 09:45 Dose: 300 mg Documented by: Lamotrigine (Lamotrigine 25 Mg Tab) 50 mg PO BID [facility] Stop: 06/16/21 09:14 Last Admin: 05/17/21 09:44 Dose: 50 mg Documented by: Levetiracetam (Levetiracetam 500 Mg Tab) 500 mg PO BID [facility] Stop: 06/16/21 20:59 Levothyroxine Sodium (Levothyroxine Sodium 100 Mcg Tablet) [facility] Stop: 06/16/21 09:14 Last Admin: 05/17/21 09:45 Dose: 100 mcg Documented by: Linaclotide (Linaclotide 145 Mcg Capsule) 290 mcg PO DAILYBB [facility] Stop: 06/16/21 09:29 Last Admin: 05/17/21 09:45 Dose: 290 mcg Documented by: Loratadine (Loratadine 10 Mg Tab) 10 mg PO QAM [facility] Stop: 06/17/21 08:59 Magnesium Hydroxide (Magnesium Hydroxide Susp 30 Ml Udc) 30 ml PO Q6H PRN PRN Reason: Constipation Stop: 06/15/21 14:23 Methenamine Hippurate (Methenamine Hippurate 1 Gm Tab) 1 gm PO BID [facility] Stop: 06/16/21 09:29 Last Admin: 05/17/21 09:45 Dose: 1 gm Documented by: Miscellaneous (Order Awaiting Action [Carbamazepine [Carbatrol] 300 Mg Capsule, Er Multiphase 12 Hr)]) 1 ea N/A QS [facility] Stop: 06/16/21 15:59 Miscellaneous Information (Daptomycin Consult Active) 1 ea N/A UD PRN PRN Reason: Consult Stop: 06/16/21 06:34 Ondansetron HCl (Ondansetron Inj 2 Mg/Ml 2 Ml Vial) 4 mg IV Q6H PRN PRN Reason: Nausea Stop: 06/15/21 14:23 Polyethylene Glycol (Polyethylene (Miralax) 17 Gm Pack) 17 gm PO DAILY PRN PRN Reason: Constipation Stop: 06/15/21 14:23 Polyethylene Glycol (Polyethylene (Miralax) 17 Gm Pack) 17 gm PO BID [facility] Stop: 06/16/21 09:14 Last Admin: 05/17/21 09:46 Dose: 17 gm Documented by: (1) AMS (altered mental status) Altered mental status type: unspecified Qualified Code(s): R41.82 - Altered mental status, unspecified
--- NOTE | 2021-05-17 12:03 | XRay Report ---
XR chest 1V portable CLINICAL HISTORY: follow up/ rhonchi, pt nonverbal. COMPARISON STUDY: 05/16/2021 TECHNIQUE: 1 view of the chest FINDINGS: Single frontal view of the chest demonstrates the cardiomediastinal silhouette to be within normal li mits. There is asymmetric elevation right hemidiaphragm. Compared to the previous examination, there is interval worsening of interstitial opacities involving the right hemithorax. The left hemithorax i s now clear. There is no evidence for pleural effusion. There is no evidence for vascular congestion. There is no acute osseous pathology. IMPRESSION: Interval worsening of interstitial opacities involving the right hemithorax with no confl uent alveolar opacities identified. The left hemithorax is now clear. ACT 112: Negative or not required by law. Electronically signed by: Inderjit Mishra M.D. 05/17/2021 12:02 PM
[2021-05-17] MEDS ORDERED: D5W AND 1/2NSS + 20MEQ KCL 20 MEQ/1,000 ML BAG IV SCH (12:30)
[2021-05-17] MEDS: AMPICILLIN/SULBACTAM SOD 3,000 MG in 0.9 % SODIUM CHLORIDE 100 ML IV SCH ×2 (14:34→20:26)
[2021-05-17] MEDS: levETIRAcetam 500 MG TAB PO SCH (20:33)
--- NOTE | 2021-05-17 22:42 | Electrocardiogram Report ---
Test Reason : Blood Pressure : / mmHG Vent. Rate : 067 BPM Atrial Rate : 067 BPM P-R Int : 220 ms QRS Dur : 100 ms QT Int : 386 ms P-R-T Axes : 048 041 066 degrees QTc Int : 407 ms Sinus rhythm with sinus arrhythmia with 1st degree A-V block Otherwise normal ECG When compared with ECG of 24-APR-2021 11:46, Artifact no longer present Confirmed by Dileep Cervantes ([id number]) on 05/17/2021 10:42:33 PM Referred By: Confirmed By:Dileep Cervantes
[2021-05-18] MEDS: AMPICILLIN/SULBACTAM SOD 3,000 MG in 0.9 % SODIUM CHLORIDE 100 ML IV SCH ×4 (01:50→21:02)
[2021-05-18] MEDS: LINACLOTIDE 145 MCG CAPSULE PO SCH (05:26)
[2021-05-18] MEDS: HEPARIN SOD 5,000 UNIT/0.5 ML VIAL SQ SCH ×3 (05:26→21:01)
[2021-05-18] MEDS: LEVOTHYROXINE SODIUM 100 MCG TABLET PO SCH (05:26)
[2021-05-18] MEDS: DAPTOmycin 300 MG in SYRINGE 0 ML IV SCH (06:04)
[2021-05-18] MEDS: lamoTRIgine 25 MG TAB PO SCH ×3 (08:37→21:40)
[2021-05-18] MEDS: LORATADINE 10 MG TAB PO SCH (08:37)
[2021-05-18] MEDS: ASPIRIN 81 MG CHEW PO SCH (08:37)
[2021-05-18] MEDS: POLYETHYLENE (MIRALAX) 17 GM PACK PO SCH ×2 (08:37→21:01)
[2021-05-18] MEDS: lamoTRIgine 100 MG TAB PO SCH ×3 (08:38→21:40)
[2021-05-18] MEDS: ADVANCED PROBIOTIC 1250 MG CAPSULE PO SCH (08:38)
[2021-05-18] MEDS: FLUTICASONE PROPIONATE NA SPR 16 GM BTL SCH (08:38)
[2021-05-18] MEDS: METHENAMINE HIPPURATE 1 GM TAB PO SCH ×3 (08:38→21:40)
[2021-05-18] MEDS: levETIRAcetam 500 MG TAB PO SCH ×2 (08:39→20:56)
[2021-05-18 09:31] LABS: Basophils # (auto) 0.04 K/uL (0-0.2); Basophils % (auto) 0.7 %; Eosinophils # (auto) 0.31 K/uL (0-0.5); Eosinophils % (auto) 5.2 %; Hematocrit (blood only) 35.5 % (37-47); Hemoglobin 10.8 g/dL (12.0-16.0); Immature Granulocytes # (auto) 0.01 K/uL (0.00-0.02); Immature Granulocytes % (auto) 0.2 %; Lymphocytes # (auto) 1.57 K/uL (1.2-3.4); Lymphocytes % (auto) 26.3 %; Mean Corpuscular Hemoglobin 28.5 pg (25-34); Mean Corpuscular Hgb Conc 30.4 g/dL (32-36); Mean Corpuscular Volume 93.7 fL (80-100); Mean Platelet Volume 10.1 fL (7.4-10.4); Monocytes # (auto) 0.45 K/uL (0.11-0.59); Monocytes % (auto) 7.5 %; Neutrophils % (auto) 60.1 %; Platelet Count 203 K/uL (130-400); RDW Coefficient of Variation 14.6 % (11.5-14.5); RDW Standard Deviation 49.7 fL (36.4-46.3); Red Blood Count 3.79 M/uL (4.2-5.4); White Blood Count 5.98 K/uL (4.8-10.8)
[2021-05-18 09:49] LABS: Albumin Level 2.6 gm/dl (3.4-5.0); BUN Creatinine Ratio 25.3 (10-20); Calcium 10.4 mg/dl (8.5-10.1); Creatinine Clr Calc Pharmacy 47.2 ml/min; Est GFR (African American) 68.8 ml/min; Est GFR (Non-African American) 59.3 ml/min; Magnesium 1.9 mg/dl (1.8-2.4); Potassium 3.2 mmol/L (3.5-5.1)
[2021-05-18 09:52] LABS: Albumin Globulin Ratio 0.5 (0.9-2); Bilirubin,Total 0.3 mg/dl (0.2-1); Globulin 4.9 gm/dl (2.5-4.0); Total Protein 7.5 gm/dl (6.4-8.2)
[2021-05-18] MEDS ORDERED: POTASSIUM CHLORIDE CRTAB 20 MEQ TABCR PO STA (13:57)
[2021-05-19] MEDS: AMPICILLIN/SULBACTAM SOD 3,000 MG in 0.9 % SODIUM CHLORIDE 100 ML IV SCH ×2 (01:53→08:04)
[2021-05-19] MEDS: LEVOTHYROXINE SODIUM 100 MCG TABLET PO SCH (05:58)
[2021-05-19] MEDS: LINACLOTIDE 145 MCG CAPSULE PO SCH (05:58)
[2021-05-19] MEDS: HEPARIN SOD 5,000 UNIT/0.5 ML VIAL SQ SCH (05:58)
[2021-05-19] MEDS: DAPTOmycin 300 MG in SYRINGE 0 ML IV SCH (06:01)
[2021-05-19] MEDS: lamoTRIgine 25 MG TAB PO SCH ×2 (08:05→20:07)
[2021-05-19] MEDS: levETIRAcetam 500 MG TAB PO SCH ×2 (08:06→20:05)
--- NOTE | 2021-05-19 08:06 | Hospitalist Progress Note ---
Date of Service May 18, 2021 Assessment & Plan (1) AMS (altered mental status): (2) Lethargy: (3) MAHIN (acute kidney injury): (4) Hypercalcemia: (5) Elevated Tegretol level: Plan: 75yo F w/ cerebral palsy with intellectual impairment, chronic diastolic CHF, interstitial lung disease, hx of seizure disorder, hypothyroidism, urinary retention with chronic indwelling Alvarado catheter, recurrent UTIs and on chronic methenamine suppression treatment, history of constipation and other medical problems listed below who presents with lethargy and increased confusion x2 days. ddx: acute metabolic encephalopathy 2/2 to MAHIN, infectious etiology, hypercalcemia no apparent neuro focal deficit but given baseline functional status difficult to assess Altered mental status/lethargy MAHIN Baseline creatinine 0.9-1 BUN/creatinine 27 and 1.28 on admission Improved to to 21 and 0.83 Hold Lasix, avoid nephrotoxic agents Received Gentle IVF Monitor volume status and monitor BMP Blood and urine cultures pending mental status is improving, she is alert and interactive, shaking head no Positive Blood Culture 1 of 2 1/2 blood culture + gram + cocci Received Ceftriaxone in ED Started on IV daptomycin - cont. for now repeat cultures ordered she remains afebrile, wbc wnl MRSA PCR negative Recurrent UTIs Chronic indwelling Alvarado catheter Alvarado changed, 05/16/2021 Await urine culture -growing gram-negative bacilli Again afebrile and WBC WNL, possible colonization On methenamine as outpatient Hypercalcemia Calcium corrected 11.8 No longer on vitamin D supplements Recent outpatient labs revealed normal PTH and vitamin D level TSH normal Likely secondary to dehydration Discussed with Dr. Morse who recommends continued hydration, recommend follow up with Dr. Perez in 4-6wks after discharge Seiz[facility] On Lamictal, Carbamazepine and Keppra no recent sx hx carbamazepine level elevated continue home meds Cerebral palsy Intellectual disability Mostly nonverbal except for a few words, wheelchair bound, can feed herself when alert and at baseline CHF, Chronic HFpEF echo 2019, moderate av sclerosis lasix currently on hold, likely contributing will need to determine appropriate dosing to maintain fluid balance, consider low dose [facility] staff wishes to obtain establishment with cardiology per staff at discharge pt weight was 162lb with lower ext and truncal edema, lasix was resumed to 80mg daily on day of discharge, weight today 152 per [facility] staff monitor closely daily weight, strict I and O will need heart healthy, low sodium diet when able to tolerate po Interstitial lung disease R Pneumonia - possible aspiration Continue baseline 2L NC O2 no resp sx CXR with LLL Opacity, likely atelectasis, maintaining normal O2 w/o resp sx increased crackles/ rhonchi on physical exam CXR repeat: Interval worsening of interstitial opacities involving the right hemithorax with no confluent alveolar opacities identified. The left hemithorax is now clear repeat procal aspiration precautions added IV unasyn to IV daptomycin DVT Ppx: SQ heparin Code status: FULL. Confirmed with brother Barry and Joyce ([phone]) Jaiden Lynn PA-C discussed w/Joyce regarding Goals of care for Minerva. She remains a full code. Pt has case management Jennifer Miller who contacted Joyce. Joyce is expected call from Dr. Carvalho to discuss goals of care. Offered Joyce a palliative care consult for Minerva and at this point she wishes to discuss with Dr. Carvalho first. Joyce and pt brother Barry want to do what is best interest for pt, but ultimately they want patient to stay at the [facility] if possible and avoid SNF if able. Joyce agreed to discuss with Dr. Carvalho and let us know if agreeable to palliative care consultation to discuss hospice as outpt. PCP: Dr. Carvalho Dispo: Admitted to med/surg, consider obtaining referral to cardiology at outpt to enroll pt in HF clinic to assist in fluid management; also pt will need 4-6 week f/u with Dr. Perez nephro Plan is to return back to the [facility] when stable. Pt goes by "Liz," or "Minerva Palumbo" Admission and Anticipated Discharge Date Admission Date: May 16, 2021 Subjective Patient seen in follow up of AMS , MAHIN /dehydration Patient is alert and able to shake head. She denies pain. ROS unreliable given underlying cognition. 1 blood culture positive, not clear at this time if this is contaminant Review of Systems Review of Systems: Unobtainable due to cognitive status Physical Exam Physical Exam: Gen: WD/WN, alert, arousable, shakes head no, not oriented, moaning HEENT: Normocephalic, atraumatic, conjunctivae moist, sclerae anicteric, mucous membranes moist. Lung: Clear to Auscultation bilaterally, + mild crackles and rhonchi noted, no wheeze, remains on 3 L of oxygen Heart: Regular rate, regular rhythm, no murmurs, rubs, or gallops Abdomen: Soft, NT, ND +BS x 4 Extremities: No edema Skin: Warm, no rash, negative turgor. Results & Data Results & Data ([facility]) Vital Signs (Past 12 Hours) Vital Signs Temp Pulse Resp BP Pulse Ox 05/18/21 22:22 36.3 C L 61 18 137/61 98 (1) AMS (altered mental status) Altered mental status type: unspecified Qualified Code(s): R41.82 - Altered mental status, unspecified
[2021-05-19] MEDS: METHENAMINE HIPPURATE 1 GM TAB PO SCH ×2 (08:07→20:24)
[2021-05-19] MEDS: LORATADINE 10 MG TAB PO SCH (08:07)
[2021-05-19] MEDS: POLYETHYLENE (MIRALAX) 17 GM PACK PO SCH ×2 (08:07→20:24)
[2021-05-19] MEDS: ASPIRIN 81 MG CHEW PO SCH (08:08)
[2021-05-19] MEDS: FLUTICASONE PROPIONATE NA SPR 16 GM BTL SCH (08:08)
[2021-05-19] MEDS: ADVANCED PROBIOTIC 1250 MG CAPSULE PO SCH (08:09)
[2021-05-19] MEDS ORDERED: CONSULT PHARMACY STA (08:12)
[2021-05-19] MEDS: lamoTRIgine 100 MG TAB PO SCH ×2 (08:25→20:06)
[2021-05-19 08:30] LABS: Hemoglobin 10.9 g/dL (12.0-16.0); Mean Corpuscular Hemoglobin 28.8 pg (25-34); Mean Corpuscular Hgb Conc 30.3 g/dL (32-36); Mean Corpuscular Volume 95.2 fL (80-100); Platelet Count 244 K/uL (130-400); RDW Standard Deviation 51.9 fL (36.4-46.3); Red Blood Count 3.78 M/uL (4.2-5.4); White Blood Count 5.11 K/uL (4.8-10.8)
[2021-05-19 09:03] LABS: BUN Creatinine Ratio 30.1 (10-20); Calcium 10.4 mg/dl (8.5-10.1); Est GFR (African American) 60.2 ml/min; Est GFR (Non-African American) 51.9 ml/min; Potassium 3.5 mmol/L (3.5-5.1)
[2021-05-19 09:06] LABS: Magnesium 2.5 mg/dl (1.8-2.4); Phosphorus 2.5 mg/dl (2.5-4.9)
[2021-05-19] MEDS: metroNIDAZOLE 500 MG TAB PO SCH ×3 (09:32→20:24)
[2021-05-19] MEDS: CEFEPIME 2,000 MG in SYRINGE 0 ML IV SCH (09:32)
[2021-05-19] MEDS: DEXTROSE 5% 1,000 ML IV SCH ×2 (11:01→17:07)
[2021-05-19 15:16] LABS: BUN Creatinine Ratio 29.1 (10-20); Creatinine Clr Calc Pharmacy 40.6 ml/min; Est GFR (African American) 56.3 ml/min; Est GFR (Non-African American) 48.5 ml/min; Potassium 3.1 mmol/L (3.5-5.1)
--- NOTE | 2021-05-19 18:03 | Hospitalist Progress Note ---
Date of Service May 19, 2021 Assessment & Plan (1) Catheter-associated urinary tract infection: Plan: Pseudomonas UTI, started on cefepime. Consider ID consult after the weekend regarding this and question of bacteremia. for now cont cefepime. (2) MAHIN (acute kidney injury): Plan: resolved to baseline (3) Bacteremia: Plan: Cont Dapto (4) Hypercalcemia: Plan: improved with IVF (5) Elevated Tegretol level: Plan: carbamazepime not being given as this is nonformulary (6) Seizure disorder: Plan: cont home AEDs (7) Cerebral palsy: Plan: baseline minimal (8) Scalp pruritus: Plan: Does not appear to have nits or lice present on exam. Thickened plaque/nodule on posterior skull with area of alopecia. Suspect tinea capitus vs seborrheic dermatitis. May consider topical therapy. Strongly recommend dermatology consultation as outpatient. (9) DVT prophylaxis: Plan: Lovenox Full Dispo-to home in next 1-2 amanda Gonzalez DO [facility] Hospitalist Admission and Anticipated Discharge Date Admission Date: May 16, 2021 Subjective 75 yo F with cerebral palsy who was sent to the hospital out of concern for confusion per her caregivers. NA 151 this am, improved with dextrose and per nurse she was more alert in the pm She is shaking her head yest and no seemingly appropriately and it appears her confusion has resolved. Ate bfast and lunch but declined dinner. Also is taking in min pills per nursing staff and sufferred 6 loose BMs today, likely a result of abx, however, patient is also notably on Linzess Review of Systems Review of Systems: Patient nonverbal with cerebral palsy unable to give ROS Physical Exam Physical Exam: CONSTITUTIONAL: WNWD, vitals as above, NAD EYES: normal conjunctivae, no scleral icterus ENT: external ear and nose normal, MMM NECK: trachea midline RESPIRATORY: clear to auscultation bilaterally, no crackles, rales or wheezes, normal respiratory effort. Some limitation to this exam 2/2 very severely contracted limbs and inability to participate with exam. CARDIOVASCULAR: regular rate and rhythm, S1 and 2 heard without murmurs, gallops or rubs, no JVD, no peripheral edema GASTROINTESTINAL: normal bowel sounds, soft, nontender, no hepatomegaly, no guarding MUSCULOSKELETAL: unable to participate with exam. Contracted limbs SKIN: warm and dry, chronic irritation in posterior head which she continues to scratch. NEUROLOGIC: cerebral palsy with baseline deficits, however, appears to not have any new focal issues. Some ability to answer in one word answers. PSYCHIATRIC: alert cooperative and appears to be answering questions ayesha ropriately. Results & Data Results & Data ([facility]) Vital Signs (Past 12 Hours) Vital Signs Temp Pulse Resp BP Pulse Ox 05/19/21 16:13 36.5 C 77 18 126/60 95 05/19/21 09:03 36.7 C 73 18 165/78 H 93 Laboratory Results Short CBC 05/19/21 Range/Units 07:54 WBC 5.11 (4.8-10.8) K/uL Hgb 10.9 L (12.0-16.0) g/dL Hct 36.0 L (37-47) % Plt Count 244 (130-400) K/uL BMP 05/19/21 05/19/21 07:54 14:47 Sodium 151 H 146 H Potassium 3.5 3.1 L Chloride 113 H 111 H Carbon Dioxide 31 32 BUN 32 H 32 H Creatinine 1.05 1.11 Glucose 101 H 121 H Calcium 10.4 H 10.0 Cardiac Enzymes 05/19/21 Range/Units 07:54 Total Creatine Kinase 66 (26-192) U/L Medications Administered Current Inpatient Medications Acetaminophen (Acetaminophen 325 Mg Tab) 650 mg PO Q4H PRN PRN Reason: pain/fever Stop: 06/15/21 14:23 Al Hydrox/Mg Hydrox/Simethicone (Aluminum/Magnesium Susp 30 Ml Udc) 30 ml PO Q6H PRN PRN Reason: Dyspepsia Stop: 06/15/21 14:23 Aspirin (Aspirin 81 Mg Chew) [facility] [place] Stop: 06/17/21 08:59 Last Admin: 05/19/21 08:08 Dose: Not Given Documented by: Enoxaparin Sodium (Enoxaparin Inj 40 Mg/0.4 Ml Syr) 40 mg SQ [facility] [place] Stop: 06/19/21 08:59 Fluticasone Propionate (Fluticasone Propionate Na Spr 16 Gm Btl) 2 sprays NA [facility] [place] Stop: 06/17/21 08:59 Last Admin: 05/19/21 08:08 Dose: 2 sprays Documented by: Guaifenesin/Dextromethorphan (Guaifenesin/Dextrom Syrup 200mg/20mg 10ml Udc) 10 ml PO Q4H PRN PRN Reason: Cough Stop: 06/16/21 09:16 Daptomycin 300 mg/ Syringe 6 mls @ 3 mls/min IV Q24H [facility]; Protocol Stop: 05/31/21 06:59 Last Admin: 05/19/21 06:01 Dose: 3 mls/min Documented by: Cefepime HCl 2,000 mg/ Syringe 20 mls @ 5 mls/min IV Q24H [facility]; Protocol Stop: 05/29/21 08:59 Last Admin: 05/19/21 09:32 Dose: 5 mls/min Documented by: Dextrose (D5w) 1,000 mls @ 150 mls/hr IV .Q6H40M [facility] Stop: 05/19/21 23:04 Last Admin: 05/19/21 17:07 Dose: 150 mls/hr Documented by: Lactobacillus Acidoph/Casei/Rhamnos (Advanced Probiotic 1250 Mg Capsule) 2 cap PO DAILY [facility] Stop: 06/17/21 08:59 Last Admin: 05/19/21 08:09 Dose: Not Given Documented by: Lamotrigine (Lamotrigine 100 Mg Tab) 300 mg PO BID [facility] Stop: 06/16/21 09:29 Last Admin: 05/19/21 08:25 Dose: 300 mg Documented by: Lamotrigine (Lamotrigine 25 Mg Tab) 50 mg PO BID [facility] Stop: 06/16/21 09:14 Last Admin: 05/19/21 08:05 Dose: 50 mg Documented by: Levetiracetam (Levetiracetam 500 Mg Tab) 500 mg PO BID [facility] Stop: 06/16/21 20:59 Last Admin: 05/19/21 08:06 Dose: 500 mg Documented by: Levothyroxine Sodium (Levothyroxine Sodium 100 Mcg Tablet) [facility] Stop: 06/16/21 09:14 Last Admin: 05/19/21 05:58 Dose: Not Given Documented by: Linaclotide (Linaclotide 145 Mcg Capsule) 290 mcg PO DAILYBB [facility] Stop: 06/16/21 09:29 Last Admin: 05/19/21 05:58 Dose: Not Given Documented by: Loratadine (Loratadine 10 Mg Tab) 10 mg PO QAM [facility] Stop: 06/17/21 08:59 Last Admin: 05/19/21 08:07 Dose: Not Given Documented by: Methenamine Hippurate (Methenamine Hippurate 1 Gm Tab) 1 gm PO BID [facility] Stop: 06/16/21 09:29 Last Admin: 05/19/21 08:07 Dose: 1 gm Documented by: Metronidazole (Metronidazole 500 Mg Tab) 500 mg PO TID [facility] Stop: 05/26/21 08:59 Last Admin: 05/19/21 13:09 Dose: 500 mg Documented by: Miscellaneous (Order Awaiting Action [Carbamazepine [Carbatrol] 300 Mg Capsule, Er Multiphase 12 Hr)]) 1 ea N/A QS [facility] Stop: 06/16/21 15:59 Last Admin: 05/19/21 16:21 Dose: Not Given Documented by: Miscellaneous Information (Daptomycin Consult Active) 1 ea N/A UD PRN PRN Reason: Consult Stop: 06/16/21 06:34 Ondansetron HCl (Ondansetron Inj 2 Mg/Ml 2 Ml Vial) 4 mg IV Q6H PRN PRN Reason: Nausea Stop: 06/15/21 14:23 Polyethylene Glycol (Polyethylene (Miralax) 17 Gm Pack) 17 gm PO BID [facility] Stop: 06/16/21 09:14 Last Admin: 05/19/21 08:07 Dose: Not Given Documented by: (1) Cerebral palsy Cerebral palsy type: spastic hemiplegic Qualified Code(s): 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
[2021-05-19] MEDS ORDERED: POTASSIUM CHLORIDE 20 MEQ/15 ML UDC PO STA (18:18)
[2021-05-19] MEDS ORDERED: LOPERAMIDE LIQUID 120 ML BOTTLE PO ONE (18:19)
[2021-05-19] MEDS: POTASSIUM CHLORIDE / WTR 10 MEQ/100 ML PLCT IV SCH ×2 (20:02→20:56)
[2021-05-19] MEDS: D5W AND 1/2NSS + 20MEQ KCL 20 MEQ/1,000 ML BAG IV SCH (23:55)
[2021-05-20] MEDS: LINACLOTIDE 145 MCG CAPSULE PO SCH (06:00)
[2021-05-20] MEDS: DAPTOmycin 300 MG in SYRINGE 0 ML IV SCH (06:03)
[2021-05-20] MEDS: LEVOTHYROXINE SODIUM 100 MCG TABLET PO SCH (06:18)
[2021-05-20 08:04] LABS: Hematocrit (blood only) 31.7 % (37-47); Hemoglobin 9.8 g/dL (12.0-16.0); Mean Corpuscular Hemoglobin 28.9 pg (25-34); Mean Corpuscular Hgb Conc 30.9 g/dL (32-36); Mean Corpuscular Volume 93.5 fL (80-100); Mean Platelet Volume 10.2 fL (7.4-10.4); Platelet Count 228 K/uL (130-400); RDW Coefficient of Variation 14.7 % (11.5-14.5); RDW Standard Deviation 50.4 fL (36.4-46.3); Red Blood Count 3.39 M/uL (4.2-5.4)
[2021-05-20] MEDS: ENOXAPARIN INJ 40 MG/0.4 ML SYR SQ SCH (08:09)
[2021-05-20] MEDS: FLUTICASONE PROPIONATE NA SPR 16 GM BTL SCH (08:09)
[2021-05-20] MEDS: ASPIRIN 81 MG CHEW PO SCH (08:09)
[2021-05-20] MEDS: ADVANCED PROBIOTIC 1250 MG CAPSULE PO SCH (08:09)
[2021-05-20] MEDS: lamoTRIgine 100 MG TAB PO SCH ×2 (08:09→20:11)
[2021-05-20] MEDS: LORATADINE 10 MG TAB PO SCH (08:10)
[2021-05-20] MEDS: lamoTRIgine 25 MG TAB PO SCH ×2 (08:10→20:11)
[2021-05-20] MEDS: levETIRAcetam 500 MG TAB PO SCH ×2 (08:10→20:12)
[2021-05-20] MEDS: METHENAMINE HIPPURATE 1 GM TAB PO SCH ×2 (08:10→20:12)
[2021-05-20] MEDS: POLYETHYLENE (MIRALAX) 17 GM PACK PO SCH ×2 (08:10→20:15)
[2021-05-20] MEDS: metroNIDAZOLE 500 MG TAB PO SCH ×3 (08:10→20:13)
[2021-05-20] MEDS: CEFEPIME 2,000 MG in SYRINGE 0 ML IV SCH ×2 (08:13→21:16)
[2021-05-20 08:30] LABS: BUN Creatinine Ratio 24.1 (10-20); Calcium 9.4 mg/dl (8.5-10.1); Creatinine Clr Calc Pharmacy 63.6 ml/min; Est GFR (African American) 94.9 ml/min; Est GFR (Non-African American) 81.9 ml/min; Magnesium 2.3 mg/dl (1.8-2.4); Phosphorus 2.2 mg/dl (2.5-4.9)
[2021-05-20] MEDS: D5W AND 1/2NSS + 20MEQ KCL 20 MEQ/1,000 ML BAG IV SCH (12:33)
[2021-05-20 20:36] LABS: Lamictal(Lamotrigine) 21.2 mcg/mL (4.0-18.0); Levetiracetam Keppra 48.2 mcg/mL (12.0-46.0)
[2021-05-21] MEDS: D5W AND 1/2NSS + 20MEQ KCL 20 MEQ/1,000 ML BAG IV SCH (01:19)
--- NOTE | 2021-05-21 05:32 | Hospitalist Progress Note ---
Date of Service May 20, 2021 Assessment & Plan (1) Catheter-associated urinary tract infection: Plan: Pseudomonas UTI, started on cefepime. Consider ID consult after the weekend regarding this and question of bacteremia. for now cont cefepime. (2) MAHIN (acute kidney injury): Plan: resolved to baseline (3) Bacteremia: Plan: Cont Dapto for now follow repeat cultx (4) Hypercalcemia: Plan: improved with IVF (5) Elevated Tegretol level: Plan: carbamazepime not being given as this is nonformulary may need to further discuss w/ neurology (6) Seizure disorder: Plan: cont home AEDs (7) Cerebral palsy: Plan: baseline minimal (8) Scalp pruritus: Plan: Does not appear to have nits or lice present on exam. Thickened plaque/nodule on posterior skull with area of alopecia. Suspect tinea capitus vs seborrheic dermatitis. May consider topical therapy. Recommend dermatology consultation as outpatient. (9) DVT prophylaxis: Plan: Lovenox Full Dispo-to home in next 1-2 days Admission and Anticipated Discharge Date Admission Date: May 16, 2021 Subjective 75 yo F with cerebral palsy who was sent to the hospital out of concern for confusion per her caregivers. She is awake, shaking her head yes and no, tells me to call her "cookie", more verbal and cooperative this AM, it appears her confusion has resolved. ROS limited Review of Systems Review of Systems: Unobtainable due to mental health condition Physical Exam Physical Exam: Gen: WD/WN, alert, arousable, shakes head yes and no, more verbal and cooperative today HEENT: Normocephalic, atraumatic, conjunctivae moist, sclerae anicteric, mucous membranes moist. Lung: Clear to Auscultation bilaterally, + mild crackles and rhonchi noted, no wheeze, remains on suppl.O2 Heart: Regular rate, regular rhythm, no murmurs, rubs, or gallops Abdomen: Soft, NT, ND +BS x 4 Extremities: No edema Skin: Warm, no rash, negative turgor. 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
[2021-05-21] MEDS: LINACLOTIDE 145 MCG CAPSULE PO SCH (06:18)
[2021-05-21] MEDS: LEVOTHYROXINE SODIUM 100 MCG TABLET PO SCH (06:18)
[2021-05-21] MEDS: DAPTOmycin 300 MG in SYRINGE 0 ML IV SCH (06:23)
[2021-05-21] MEDS: CEFEPIME 2,000 MG in SYRINGE 0 ML IV SCH ×2 (08:43→20:32)
[2021-05-21] MEDS: ENOXAPARIN INJ 40 MG/0.4 ML SYR SQ SCH (08:43)
[2021-05-21] MEDS: ASPIRIN 81 MG CHEW PO SCH (08:43)
[2021-05-21] MEDS: lamoTRIgine 25 MG TAB PO SCH ×2 (08:43→20:00)
[2021-05-21] MEDS: FLUTICASONE PROPIONATE NA SPR 16 GM BTL SCH (08:43)
[2021-05-21] MEDS: ADVANCED PROBIOTIC 1250 MG CAPSULE PO SCH (08:43)
[2021-05-21] MEDS: METHENAMINE HIPPURATE 1 GM TAB PO SCH ×2 (08:44→20:01)
[2021-05-21] MEDS: metroNIDAZOLE 500 MG TAB PO SCH ×3 (08:44→20:01)
[2021-05-21] MEDS: lamoTRIgine 100 MG TAB PO SCH ×2 (08:44→20:00)
[2021-05-21] MEDS: LORATADINE 10 MG TAB PO SCH (08:45)
[2021-05-21] MEDS: levETIRAcetam 500 MG TAB PO SCH ×2 (08:45→20:01)
[2021-05-21] MEDS: POLYETHYLENE (MIRALAX) 17 GM PACK PO SCH ×2 (08:45→20:02)
[2021-05-21 08:51] LABS: Hematocrit (blood only) 32.4 % (37-47); Hemoglobin 10.1 g/dL (12.0-16.0); Mean Corpuscular Hemoglobin 28.9 pg (25-34); Mean Corpuscular Hgb Conc 31.2 g/dL (32-36); Mean Corpuscular Volume 92.6 fL (80-100); Mean Platelet Volume 10.3 fL (7.4-10.4); Platelet Count 260 K/uL (130-400); RDW Coefficient of Variation 14.5 % (11.5-14.5)
[2021-05-21 09:08] LABS: BUN Creatinine Ratio 11.8 (10-20); Calcium 10.2 mg/dl (8.5-10.1); Creatinine Clr Calc Pharmacy 48.2 ml/min; Est GFR (African American) 67.1 ml/min; Est GFR (Non-African American) 57.9 ml/min; Magnesium 2.3 mg/dl (1.8-2.4); Phosphorus 1.9 mg/dl (2.5-4.9)
--- NOTE | 2021-05-21 19:09 | Hospitalist Progress Note ---
Date of Service May 21, 2021 Assessment & Plan (1) Catheter-associated urinary tract infection: Plan: Pseudomonas UTI, started on cefepime. Plan for ID consult after the weekend regarding this and question of bacteremia. for now cont cefepime. (2) MAHIN (acute kidney injury): Plan: resolved to baseline (3) Bacteremia: Plan: 1 of 2 blood cultures positive for coag negative staph not lugdunensis Possible contamination We will stop Dapto now, continue cefepime, will discuss further with ID tomorrow follow repeat cultx (4) Hypercalcemia: Plan: improved with IVF (5) Elevated Tegretol level: Plan: carbamazepime not being given as this is nonformulary may need to further discuss w/ neurology (6) Seizure disorder: Plan: cont home AEDs (7) Cerebral palsy: Plan: baseline minimal (8) Scalp pruritus: Plan: Does not appear to have nits or lice present on exam. Thickened plaque/nodule on posterior skull with area of alopecia. Suspect tinea capitus vs seborrheic dermatitis. May consider topical therapy. Recommend dermatology consultation as outpatient. (9) DVT prophylaxis: Plan: Lovenox Full Dispo-to home in next 1-2 days Admission and Anticipated Discharge Date Admission Date: May 16, 2021 Subjective 75 yo F with cerebral palsy who was sent to the hospital out of concern for confusion per her caregivers. Currently resting peacefully. When awake, shaking her head yes and no. Per nursing staff eating with assistance. ROS limited Plan for ID consult tomorrow. Review of Systems Review of Systems: All systems reviewed & are unremarkable except as noted in Subjective Physical Exam Physical Exam: Gen: WD/WN, shakes head yes and no HEENT: NC/AT, conjunctivae moist, sclerae anicteric, mucous membranes moist. Lung: + mild crackles and rhonchi noted, no wheeze, remains on suppl.O2 Heart: Regular rate, regular rhythm, no murmurs, rubs, or gallops Abdomen: Soft, NT, ND +BS x 4 Extremities: No edema Skin: Warm, no rash Results & Data Results & Data ([facility]) Vital Signs (Past 12 Hours) Vital Signs Temp Pulse Resp BP Pulse Ox 05/21/21 16:54 37.0 C 60 16 147/80 H 93 05/21/21 08:28 36.9 C 79 16 190/112 H 95 Laboratory Results 05/21/21 05/21/21 05/16/21 Range/Units 08:28 08:28 12:50 WBC 5.70 (4.8-10.8) K/uL RBC 3.50 L (4.2-5.4) M/uL Hgb 10.1 L (12.0-16.0) g/dL Hct 32.4 L (37-47) % MCV 92.6 (80-100) fL MCH 28.9 (25-34) pg MCHC 31.2 L (32-36) g/dL RDW Std Deviation 49.0 H (36.4-46.3) fL RDW Coeff of Db 14.5 (11.5-14.5) % Plt Count 260 (130-400) K/uL MPV 10.3 (7.4-10.4) fL Sodium 142 (136-145) mmol/L Potassium 4.0 (3.5-5.1) mmol/L Chloride 111 H (98-107) mmol/L Carbon Dioxide 24 (21-32) mmol/L Anion Gap 8.0 (3-11) BUN 11 (7-18) mg/dl Creatinine 0.96 (0.6-1.2) mg/dl Est Cr Clr Drug Dosing 48.2 ml/min Est GFR ( Amer) 67.1 ml/min Est GFR (Non-Af Amer) 57.9 ml/min BUN/Creatinine Ratio 11.8 (10-20) Glucose 121 H (70-99) mg/dl Calcium 10.2 H (8.5-10.1) mg/dl Phosphorus 1.9 L (2.5-4.9) mg/dl Magnesium 2.3 (1.8-2.4) mg/dl Lamotrigine 21.2 H (4.0-18.0) mcg/mL Levetiracetam 48.2 H (12.0-46.0) mcg/mL Medications Administered Current Inpatient Medications Acetaminophen (Acetaminophen 325 Mg Tab) 650 mg PO Q4H PRN PRN Reason: pain/fever Stop: 06/15/21 14:23 Al Hydrox/Mg Hydrox/Simethicone (Aluminum/Magnesium Susp 30 Ml Udc) 30 ml PO Q6H PRN PRN Reason: Dyspepsia Stop: 06/15/21 14:23 Aspirin (Aspirin 81 Mg Chew) 81 mg PO QAM [facility] Stop: 06/17/21 08:59 Last Admin: 05/21/21 08:43 Dose: 81 mg Documented by: Enoxaparin Sodium (Enoxaparin Inj 40 Mg/0.4 Ml Syr) 40 mg SQ QAM [facility] Stop: 06/19/21 08:59 Last Admin: 05/21/21 08:43 Dose: 40 mg Documented by: Fluticasone Propionate (Fluticasone Propionate Na Spr 16 Gm Btl) 2 sprays NA QAM [facility] Stop: 06/17/21 08:59 Last Admin: 05/21/21 08:43 Dose: 2 sprays Documented by: Guaifenesin/Dextromethorphan (Guaifenesin/Dextrom Syrup 200mg/20mg 10ml Udc) 10 ml PO Q4H PRN PRN Reason: Cough Stop: 06/16/21 09:16 Cefepime HCl 2,000 mg/ Syringe 20 mls @ 5 mls/min IV Q12H [facility]; Protocol Stop: 05/29/21 08:59 Last Admin: 05/21/21 08:43 Dose: 5 mls/min Documented by: Lactobacillus Acidoph/Casei/Rhamnos (Advanced Probiotic 1250 Mg Capsule) 2 cap PO DAILY [facility] Stop: 06/17/21 08:59 Last Admin: 05/21/21 08:43 Dose: 2 cap Documented by: Lamotrigine (Lamotrigine 100 Mg Tab) 300 mg PO BID [facility] Stop: 06/16/21 09:29 Last Admin: 05/21/21 08:44 Dose: 300 mg Documented by: Lamotrigine (Lamotrigine 25 Mg Tab) 50 mg PO BID [facility] Stop: 06/16/21 09:14 Last Admin: 05/21/21 08:43 Dose: 50 mg Documented by: Levetiracetam (Levetiracetam 500 Mg Tab) 500 mg PO BID [facility] Stop: 06/16/21 20:59 Last Admin: 05/21/21 08:45 Dose: 500 mg Documented by: Levothyroxine Sodium (Levothyroxine Sodium 100 Mcg Tablet) [facility] Stop: 06/16/21 09:14 Last Admin: 05/21/21 06:18 Dose: 100 mcg Documented by: Linaclotide (Linaclotide 145 Mcg Capsule) 290 mcg PO DAILYBB [facility] Stop: 06/16/21 09:29 Last Admin: 05/21/21 06:18 Dose: 290 mcg Documented by: Loratadine (Loratadine 10 Mg Tab) 10 mg PO QAM [facility] Stop: 06/17/21 08:59 Last Admin: 05/21/21 08:45 Dose: 10 mg Documented by: Methenamine Hippurate (Methenamine Hippurate 1 Gm Tab) 1 gm PO BID [facility] Stop: 06/16/21 09:29 Last Admin: 05/21/21 08:44 Dose: 1 gm Documented by: Metronidazole (Metronidazole 500 Mg Tab) 500 mg PO TID [facility] Stop: 05/26/21 08:59 Last Admin: 05/21/21 13:35 Dose: 500 mg Documented by: Miscellaneous (Order Awaiting Action [Carbamazepine [Carbatrol] 300 Mg Capsule, Er Multiphase 12 Hr)]) 1 ea N/A QS [facility] Stop: 06/16/21 15:59 Last Admin: 05/21/21 08:56 Dose: Not Given Documented by: Miscellaneous Information (Daptomycin Consult Active) 1 ea N/A UD PRN PRN Reason: Consult Stop: 06/16/21 06:34 Ondansetron HCl (Ondansetron Inj 2 Mg/Ml 2 Ml Vial) 4 mg IV Q6H PRN PRN Reason: Nausea Stop: 06/15/21 14:23 Polyethylene Glycol (Polyethylene (Miralax) 17 Gm Pack) 17 gm PO BID [facility] Stop: 06/16/21 09:14 Last Admin: 05/21/21 08:45 Dose: 17 gm Documented by: Potassium Phosphate (Pot Phosphate Monobasic W/ Sod Tab) 1 tab PO TID [facility] Stop: 06/20/21 20:59 (1) Cerebral palsy Cerebral palsy type: spastic hemiplegic Qualified Code(s): 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
[2021-05-21] MEDS: POT PHOSPHATE MONOBASIC W/ SOD TAB PO SCH (20:14)
[2021-05-22] MEDS: LEVOTHYROXINE SODIUM 100 MCG TABLET PO SCH (05:56)
[2021-05-22] MEDS: LINACLOTIDE 145 MCG CAPSULE PO SCH (05:56)
[2021-05-22 07:13] LABS: Hematocrit (blood only) 31.4 % (37-47); Hemoglobin 9.5 g/dL (12.0-16.0); Mean Corpuscular Hemoglobin 28.5 pg (25-34); Mean Corpuscular Hgb Conc 30.3 g/dL (32-36); Mean Corpuscular Volume 94.3 fL (80-100); Mean Platelet Volume 9.8 fL (7.4-10.4); Platelet Count 256 K/uL (130-400); RDW Coefficient of Variation 14.8 % (11.5-14.5); RDW Standard Deviation 50.3 fL (36.4-46.3); Red Blood Count 3.33 M/uL (4.2-5.4); White Blood Count 4.97 K/uL (4.8-10.8)
[2021-05-22 07:42] LABS: BUN Creatinine Ratio 17.6 (10-20); Calcium 10.1 mg/dl (8.5-10.1); Creatinine Clr Calc Pharmacy 58.7 ml/min; Est GFR (African American) 86.2 ml/min; Est GFR (Non-African American) 74.4 ml/min; Magnesium 2.3 mg/dl (1.8-2.4); Potassium 4.1 mmol/L (3.5-5.1)
[2021-05-22 07:54] LABS: Phosphorus 3.5 mg/dl (2.5-4.9)
[2021-05-22] MEDS: CEFEPIME 2,000 MG in SYRINGE 0 ML IV SCH (09:08)
[2021-05-22] MEDS: ASPIRIN 81 MG CHEW PO SCH (09:09)
[2021-05-22] MEDS: ENOXAPARIN INJ 40 MG/0.4 ML SYR SQ SCH (09:09)
[2021-05-22] MEDS: lamoTRIgine 100 MG TAB PO SCH ×2 (09:10→20:14)
[2021-05-22] MEDS: FLUTICASONE PROPIONATE NA SPR 16 GM BTL SCH (09:10)
[2021-05-22] MEDS: ADVANCED PROBIOTIC 1250 MG CAPSULE PO SCH (09:10)
[2021-05-22] MEDS: lamoTRIgine 25 MG TAB PO SCH (09:11)
[2021-05-22] MEDS: METHENAMINE HIPPURATE 1 GM TAB PO SCH ×2 (09:11→20:15)
[2021-05-22] MEDS: levETIRAcetam 500 MG TAB PO SCH ×2 (09:11→20:15)
[2021-05-22] MEDS: LORATADINE 10 MG TAB PO SCH (09:11)
[2021-05-22] MEDS: POLYETHYLENE (MIRALAX) 17 GM PACK PO SCH ×2 (09:12→20:16)
[2021-05-22] MEDS: metroNIDAZOLE 500 MG TAB PO SCH ×2 (09:12→13:26)
[2021-05-22] MEDS: POT PHOSPHATE MONOBASIC W/ SOD TAB PO SCH ×2 (09:12→13:26)
--- NOTE | 2021-05-22 15:07 | Hospitalist Progress Note ---
Date of Service May 22, 2021 Assessment & Plan (1) Catheter-associated urinary tract infection: (2) Bacteremia: Plan: -Patient presented with lethargy and increased confusion. -Urine culture grew Pseudomonas; 1/2 blood cultures grew 2 different strains of coag negative staph -Antibiotics - initially received IV ceftriaxone in the ED, no further antibiotics were continued on admission. When blood cultures became positive, IV daptomycin was started and due to concerns for aspiration, IV Unasyn was started as well. Urine culture subsequently grew Pseudomonas and patient was started on cefepime. Unasyn was then stopped and Flagyl was started for concerns of aspiration. -ID consulted, input appreciated -it is not clear if patient truly has UTI given that urine was contaminated with epithelial cells and mixed myla. Patient has been afebrile without leukocytosis. No obvious pneumonia and procalcitonin negative x2. Blood culture results likely represent contamination. ID recommends observation off antibiotics and removal of Alvarado if feasible -likely unable to do so given chronic bedbound status and incontinence. Alvarado catheter was exchanged on 05/16. -will discontinue cefepime and Flagyl today (3) Elevated antiepileptic drug level: Plan: -Carbamazepine, lamotrigine, levetiracetam levels all mildly elevated -Carbamazepine has been on hold given it is nonformulary -will consult neurology for further recommendations -patient follows with [facility] neurology (4) MAHIN (acute kidney injury): Plan: -Mild, creatinine 1.28 on admission -Improved after IVF -Creatinine 0.78 today (5) Hypercalcemia: Plan: -Likely due to dehydration, improved with IVF (6) Seizure disorder: Plan: -Antiepileptics as above (7) Cerebral palsy: Plan: -w/ severe intellectual disability, baseline minimal -Mental status appears to be at baseline (8) DVT prophylaxis: Plan: -SQ Lovenox Dispo - likely discharge back to [facility] in the next day or two Admission and Anticipated Discharge Date Admission Date: May 16, 2021 Supervising Physician Co-Signing Physician Notes Patient seen and examined by me, care coordinated with APOLLO Gleason, please refer to her note above for further detail. Patient is currently laying in bed, resting peacefully in no acute distress. She is unable to provide any history or review of system. She has been more cooperative with eating and able to shake her head no. Her lung sounds are somewhat diminished, but there is no wheezing rhonchi or crackles noted. Heart sounds regular. Abdomen soft nontender nondistended. Moves extremities. Initially concern for aspiration, bacteremia, UTI. Discussed today with ID, recommend to stop antibiotics, and monitor off of antibiotics. Will stop antibiotics now. Mental status likely is back to baseline. We will also discuss further with neurology. Herson Anderson MD Subjective Patient seen and examined. Follow-up for UTI, MAHIN. Due to underlying intellectual disability and cerebral palsy, meaningful history unobtainable. Patient awake, does not appear to be in any distress. Review of Systems Review of Systems: Unobtainable due to mental health condition Physical Exam Constitutional: WD/WN, vitals as above no acute distress Respiratory: normal respiratory effort; no respiratory distress Auscultation: + diminished lung sounds Cardiovascular: Rate/Rhythm: regular rate and regular rhythm Vessels: normal peripheral pulses Extremities: no edema Gastrointestinal (Abdomen): Percussion/Palpation: abdomen soft; abdomen nontender Musculoskeletal: Contractures Skin: no rashes, warm and dry Neurologic: no focal motor deficits Psychiatric: Orientation: alert; + not oriented to person, + not oriented to place and + not oriented to time Results & Data Results & Data ([facility]) Vital Signs (Past 12 Hours) Vital Signs Temp Pulse Resp BP Pulse Ox 05/22/21 07:47 36.7 C 89 18 112/65 95 Laboratory Results Short CBC 05/22/21 Range/Units 06:53 WBC 4.97 (4.8-10.8) K/uL Hgb 9.5 L (12.0-16.0) g/dL Hct 31.4 L (37-47) % Plt Count 256 (130-400) K/uL BMP 05/22/21 06:53 Sodium 145 Potassium 4.1 Chloride 115 H Carbon Dioxide 24 BUN 14 Creatinine 0.78 Glucose 90 Calcium 10.1 Medications Administered Current Inpatient Medications Acetaminophen (Acetaminophen 325 Mg Tab) 650 mg PO Q4H PRN PRN Reason: pain/fever Stop: 06/15/21 14:23 Al Hydrox/Mg Hydrox/Simethicone (Aluminum/Magnesium Susp 30 Ml Udc) 30 ml PO Q6H PRN PRN Reason: Dyspepsia Stop: 06/15/21 14:23 Aspirin (Aspirin 81 Mg Chew) 81 mg PO QAM [facility] Stop: 06/17/21 08:59 Last Admin: 05/22/21 09:09 Dose: 81 mg Documented by: Enoxaparin Sodium (Enoxaparin Inj 40 Mg/0.4 Ml Syr) 40 mg SQ QAM [facility] Stop: 06/19/21 08:59 Last Admin: 05/22/21 09:09 Dose: 40 mg Documented by: Fluticasone Propionate (Fluticasone Propionate Na Spr 16 Gm Btl) 2 sprays NA QAM [facility] Stop: 06/17/21 08:59 Last Admin: 05/22/21 09:10 Dose: 2 sprays Documented by: Guaifenesin/Dextromethorphan (Guaifenesin/Dextrom Syrup 200mg/20mg 10ml Udc) 10 ml PO Q4H PRN PRN Reason: Cough Stop: 06/16/21 09:16 Lactobacillus Acidoph/Casei/Rhamnos (Advanced Probiotic 1250 Mg Capsule) 2 cap PO DAILY [facility] Stop: 06/17/21 08:59 Last Admin: 05/22/21 09:10 Dose: 2 cap Documented by: Lamotrigine (Lamotrigine 100 Mg Tab) 300 mg PO BID [facility] Stop: 06/16/21 09:29 Last Admin: 05/22/21 09:10 Dose: 300 mg Documented by: Lamotrigine (Lamotrigine 25 Mg Tab) 50 mg PO BID [facility] Stop: 06/16/21 09:14 Last Admin: 05/22/21 09:11 Dose: 50 mg Documented by: Levetiracetam (Levetiracetam 500 Mg Tab) 500 mg PO BID [facility] Stop: 06/16/21 20:59 Last Admin: 05/22/21 09:11 Dose: 500 mg Documented by: Levothyroxine Sodium (Levothyroxine Sodium 100 Mcg Tablet) 100 mcg PO DAILYBB [facility] Stop: 06/16/21 09:14 Last Admin: 05/22/21 05:56 Dose: 100 mcg Documented by: Linaclotide (Linaclotide 145 Mcg Capsule) 290 mcg PO DAILYBB [facility] Stop: 06/16/21 09:29 Last Admin: 05/22/21 05:56 Dose: 290 mcg Documented by: Loratadine (Loratadine 10 Mg Tab) 10 mg PO QAM [facility] Stop: 06/17/21 08:59 Last Admin: 05/22/21 09:11 Dose: 10 mg Documented by: Methenamine Hippurate (Methenamine Hippurate 1 Gm Tab) 1 gm PO BID [facility] Stop: 06/16/21 09:29 Last Admin: 05/22/21 09:11 Dose: 1 gm Documented by: Miscellaneous (Order Awaiting Action [Carbamazepine [Carbatrol] 300 Mg Capsule, Er Multiphase 12 Hr)]) 1 ea N/A QS [facility] Stop: 06/16/21 15:59 Last Admin: 05/22/21 09:08 Dose: Not Given Documented by: Ondansetron HCl (Ondansetron Inj 2 Mg/Ml 2 Ml Vial) 4 mg IV Q6H PRN PRN Reason: Nausea Stop: 06/15/21 14:23 Polyethylene Glycol (Polyethylene (Miralax) 17 Gm Pack) 17 gm PO BID [facility] Stop: 06/16/21 09:14 Last Admin: 05/22/21 09:12 Dose: 17 gm Documented by: (1) Cerebral palsy Cerebral palsy type: spastic hemiplegic Qualified Code(s): 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
--- NOTE | 2021-05-22 17:51 | XRay Report ---
SINGLE VIEW CHEST CLINICAL HISTORY: Aspiration. FINDINGS: An AP, portable, semierect chest radiograph is compared to study dated 05/17/2021 and corre lated with chest CT dated 08/13/2019. The examination is mildly degraded by portable technique and pat ient rotation. The heart is top normal for projection. The pulmonary vasculature is noncongested. The re is chronic volume loss in the right lung with elevation of the right hemidiaphragm. Changes of chr onic interstitial lung disease are similar to previous with asymmetric fibrosis of the right lung. Th ere is no clear evidence of superimposed airspace consolidation. Scarring/atelectasis is noted at the left lung base. No large pleural effusion is identified. No pneumothorax is seen. The skeletal struc tures are osteopenic. The bony thorax is grossly intact. Calcified joint bodies are noted in the righ t shoulder. IMPRESSION: 1. Changes of chronic interstitial lung disease are similar to previous. 2. There is no clear evidence of superimposed airspace consolidation or pleural effusion. ACT 112: Negative or not required by law. Electronically signed by: Sam Roman M.D. 05/22/2021 5:50 PM
[2021-05-23] MEDS: LINACLOTIDE 145 MCG CAPSULE PO SCH (05:51)
[2021-05-23] MEDS: LEVOTHYROXINE SODIUM 100 MCG TABLET PO SCH (05:51)
[2021-05-23 06:44] LABS: Hematocrit (blood only) 28.1 % (37-47); Hemoglobin 8.7 g/dL (12.0-16.0); Mean Corpuscular Volume 93.7 fL (80-100); Mean Platelet Volume 10.3 fL (7.4-10.4); Platelet Count 282 K/uL (130-400); RDW Coefficient of Variation 15.2 % (11.5-14.5); RDW Standard Deviation 51.7 fL (36.4-46.3); White Blood Count 4.73 K/uL (4.8-10.8)
[2021-05-23 07:07] LABS: BUN Creatinine Ratio 17.2 (10-20); Creatinine Clr Calc Pharmacy 46.5 ml/min; Est GFR (African American) 64.6 ml/min; Est GFR (Non-African American) 55.7 ml/min; Potassium 3.7 mmol/L (3.5-5.1)
[2021-05-23] MEDS: LORATADINE 10 MG TAB PO SCH (09:16)
[2021-05-23] MEDS: ENOXAPARIN INJ 40 MG/0.4 ML SYR SQ SCH (09:16)
[2021-05-23] MEDS: lamoTRIgine 100 MG TAB PO SCH (09:17)
[2021-05-23] MEDS: ASPIRIN 81 MG CHEW PO SCH (09:17)
[2021-05-23] MEDS: METHENAMINE HIPPURATE 1 GM TAB PO SCH (09:18)
[2021-05-23] MEDS: levETIRAcetam 500 MG TAB PO SCH (09:18)
[2021-05-23] MEDS: ADVANCED PROBIOTIC 1250 MG CAPSULE PO SCH (09:18)
[2021-05-23] MEDS: FLUTICASONE PROPIONATE NA SPR 16 GM BTL SCH (09:19)
[2021-05-23] MEDS: POLYETHYLENE (MIRALAX) 17 GM PACK PO SCH (09:19)
--- NOTE | 2021-05-23 15:38 | Discharge Summary ---
Date of Service May 23, 2021 Admission HPI Per Admitting Provider This is a 75yo F with a PMH of cerebral palsy with intellectual impairment, chronic diastolic congestive heart failure, interstitial lung disease, history of seizure disorder, hypothyroidism, urinary retention with chronic indwelling Alvarado catheter, recurrent UTIs and on chronic methenamine suppression treatment, history of constipation and other medical problems listed below who presents with lethargy and increased confusion x2 days. Of significance patient recently hospitalized 04/24-05/01 secondary to acute kidney injury, hypernatremia and UTI. Her acute kidney injury and hyponatremia was felt to be secondary to combination of Lasix therapy along with poor p.o. intake. She was treated with gentle IV hydration and her sodium levels slowly declined and her renal function slowly improved. Her UTI was treated with IV antibiotics. She did have difficulty with constipation, but no bowel movement on day of discharge. Since being discharged from the hospital to [facility] she had been doing well except she had an increase in weight 162 pounds. Per staff at bedside that is 10 pounds more than usual. It was also noted she had increased distention in abdomen and increased swelling in lower extremities. She was restarted back on her Lasix 80 mg daily the day after discharge. They also had her on a 56oz fluid restriction. She has gradually declined, eating less and becoming nonverbal. At baseline she is able to say short yes no answers and, "cookie feel better." At baseline typically she is alert, arousable and either bedbound or in a wheelchair. Staff at bedside has noticed over the last several days patient chewing on straw and almost like she does not know what to do with it. She is rooting for food but will pocketed and not swallow it. They have had significant difficulty getting any amount of fluid into her the past couple days. They have been pipetting 5 mL of fluid in at a time she will take. Today she weighed 152 and now swelling. ROS unobtainable from pt but provided from healthcare science specialist at bedside. Prototype Deicer Assembler at bedside is concerned as they are doing everything they can for patient. They are concerned about frequent hospitalizations and being unaware of how to appropriately manage her CHF. In ED patient was initially hypotensive. Upon my evaluation she was hemodynamically stable. Lab work shows stable H&H at 10.4 and 32.9, WBC 7.51, she is afebrile, BUN/creatinine elevated at 27 and 1.28, hypocalcemic at 11.3 and a urinalysis uncertain of infection. Her chest x-ray revealed left basilar opacity concerning for pneumonitis versus atelectasis. Head CT was negative for acute abnormality. She received IV fluid in ED. Admission Exam Per Admitting Provider Constitutional: WD/WN, female, eyes closed, not arousable to verbal or tactile stimulation, vitals as above, NAD Head: Normocephalic, Atraumatic Eyes: PERRL, conjunctivae normal, anicteric sclerae ENMT: external ear and nose normal, oropharynx normal membranes dry Neck: trachea midline, no thyromegaly normal visual inspection Respiratory: normal respiratory effort, lungs clear to auscultation, no wheeze, rales, rhonchi. Normal insp/exp effort, no accessory muscle use Cardiovascular: RRR, 2/6 PARISA RUSB, no edema Vessels: no JVD or carotid bruit Chest: normal inspection of chest Abdomen: normal bowel sounds, soft, nontender, no hepatosplenomegaly Musculoskeletal: no cyanosis or clubbing, extremities with contractures of bilateral hands Skin: no rashes, warm and dry normal turgor Neurologic: Unable to assess due to mental status Psychiatric: Lethargic Lymphatic: no cervical or axillary lymphadenopathy : Alvarado catheter draining yellow urine Principal Diagnosis Carbamazepine toxicity Discharge Exam Constitutional WD/WN, vitals as above Respiratory normal respiratory effort; no respiratory distress Auscultation: + diminished lung sounds Cardiovascular Rate/Rhythm: regular rate and regular rhythm Vessels: normal peripheral pulses Extremities: + edema (Trace edema BLE) Gastrointestinal (Abdomen) Percussion/Palpation: abdomen soft; abdomen nontender Musculoskeletal Contractures of upper extremities Skin no rashes, warm and dry Neurologic awake Occasionally answers yes or no, mumbles at times, awake, no acute distress Psychiatric Orientation: alert and oriented to person; + not oriented to place and + not oriented to time Genitourinary Alvarado in place draining yellow urine Discharge Data Allergies Allergy/AdvReac Type Severity Reaction Status Date / Time No Known Allergies Allergy Unknown Verified 05/16/21 14:44 Consultations Infectious disease Ordered Studies Head CT IMPRESSION 05/16/2021: 1. No acute intracranial abnormality. 2. Chronic findings as above. CXR IMPRESSION 05/22/2021: 1. Changes of chronic interstitial lung disease are similar to previous. 2. There is no clear evidence of superimposed airspace consolidation or pleural effusion. Hospital Course (1) AMS (altered mental status): (2) Elevated antiepileptic drug level: This is a 75yo F with a PMH of cerebral palsy with intellectual impairment, chronic diastolic congestive heart failure, interstitial lung disease, history of seizure disorder, hypothyroidism, urinary retention with chronic indwelling Alvarado catheter, recurrent UTIs and on chronic methenamine suppression treatment, history of constipation and other medical problems listed below who presentsed with lethargy and increased confusion x2 days. Patient initially thought to have UTI and possible bacteremia: -Urine culture grew Pseudomonas; 1/2 blood cultures grew 2 different strains of coag negative staph -Antibiotics - initially received IV ceftriaxone in the ED, no further antibiotics were continued on admission. When blood cultures became positive, IV daptomycin was started and due to concerns for aspiration, IV Unasyn was started as well. Urine culture subsequently grew Pseudomonas and patient was started on cefepime. Unasyn was then stopped and Flagyl was started for concerns of aspiration. -ID consulted -it is not clear if patient truly has UTI given that urine was contaminated with epithelial cells and mixed myla. Patient remained afebrile without leukocytosis. No obvious pneumonia and procalcitonin negative x2. Blood culture results likely represent contamination. ID recommends observation off antibiotics and removal of Alvarado if feasible - likely unable to do so given chronic bedbound status and incontinence. Recommend outpatient follow-up with urology for possible Alvarado removal-appointment arranged. catheter was exchanged on 05/16. -Patient was also found to have elevated carbamazepine, lamotrigine, and levetiracetam levels. -Discussed antiepileptic drugs with Dr. Stoddard - recommends decreasing Lamictal to 300 mg twice daily, keep Keppra dosing the same, and DC carbamazepine. Patient will need close neurology follow-up as an outpatient within 1 week of discharge. -Altered mental status likely due to elevated carbamazepine level -Patient noted to have a mild MAHIN on admission with creatinine 1.28 -> 0.99 on the day of discharge. Had mild hypercalcemia as well that improved as well. -Lasix recently resumed which likely contributed to MAHIN and hypercalcemia. -Renal functions improved with holding Lasix and giving IVF. -Patient will need close outpatient cardiology follow-up for management of CHF. Appointment has been arranged. -Recommend holding Lasix until seen by cardiology Total Time Total Time Spent Total Time Spent (In Minutes): 45 Discharge Plan Discharge Items Patient Disposition: Home - Self-Care Reason For Visit: ALTERED MENTAL STATUS Discharge Diagnosis: Carbamazepine toxicity Activity: Resume your previous activity Non-emergency contact: Primary Care Provider Call non-emergency contact if: you have any medication questions, your symptoms worsen and you have a fever Follow-up/Referrals: Jose Stoddard MD [Physician] - 06/29/21 4:00 pm (no sooner opening available currently, office staff will contact pt when/if closer time slot opens.) Lora Carvalho DO [Primary Care Provider] - 05/30/21 11:00 am (Date & Time 05/30/2021 11:00 AM Provider Lora Carvalho DO Department [facility] ) Lupe Liu PA-C [Physician Vice President Investor Relations] - 05/29/21 11:00 am (Date & Time 05/29/2021 11:00 AM Provider Lupe Liu PA-C Department Cardiology, [facility] ) Noe Yee PA-C [Outside Practitioners] - 05/25/21 11:30 am (Date & Time 05/25/2021 11:30 AM Provider Noe Yee PA-C Department Urology [facility] ) Diet: Heart Healthy and Low Sodium (2gm) Diet Texture: Pureed (blended smooth) Addtl Attending Provider Instructions: Patient admitted with altered mental status. Found to have elevated carbamazepine level. Lamotrigine and Keppra levels also elevated. - Per neurology: will discontinue carbamazepine, lamotrigine reduced to 300 mg twice daily, Keppra dosing remaining the same. Please arrange for follow-up appointment with Dr. Stoddard at [facility] neurology within the next week. Initially thought to have UTI however evaluated by ID who felt this was unlikely. Also had positive blood culture that was likely a contaminant. Also found to have kidney injury and dehydration which was likely due to recent resumption of Lasix. Kidney functions improved with holding Lasix and given IVF. Patient will need outpatient follow-up with cardiology for CHF management. Appointment has been arranged. ID also recommended that patient be evaluated for possible chronic Alvarado catheter removal. Follow-up appointment has been arranged with urology. Pending Studies at Discharge: No Stand-Alone Forms: My [facility], Smoking Cessation Medications and DC Order Prescriptions: Continued multivitamin [Multiple Vitamins] Tablet 1 tab PO QAM Qty: 0 RF: 0 Aloe [place] Protectant Ointment 43 % Ointment 1 applic TOPICAL BID Qty: 0 RF: 0 levothyroxine [Synthroid] 100 mcg Tablet 100 mcg PO DAILYBB Qty: 0 RF: 0 methenamine hippurate [Hiprex] 1 gram Tablet 1 g PO BID Qty: 0 RF: 0 aspirin 81 mg Tablet,Chewable 81 mg PO QAM Qty: 0 RF: 0 lamotrigine [Lamictal] 150 mg Tablet 300 mg PO BID RF: 0 Linzess 290 mcg Capsule 290 mcg PO DAILYBB RF: 0 fluticasone propionate [Flonase Allergy Relief] 50 mcg/actuation Lena,Suspension 2 spray INTRANASAL QAM RF: 0 Triple Antibiotic 3.5mg-400 unit- 5,000 unit/gram Ointment 1 applic TOPICAL DIRECTED PRN (Reason: abrasions) RF: 0 guaifenesin [Mucinex] 600 mg Tablet Extended Release 12hr 600 mg PO Q12H PRN (Reason: Congestion) RF: 0 dextromethorphan-guaifenesin 10-200 mg/5 mL Liquid 10 ml PO Q4H PRN (Reason: Cough) RF: 0 hydrocortisone [Proctozone-HC] 2.5 % Cream With Perineal Applicator 1 applic MI BID PRN (Reason: Hemorrhoids) RF: 0 polyethylene glycol 3350 [Miralax] 17 gram/dose Powder 17 g PO BID PRN (Reason: Constipation) RF: 0 loratadine [Claritin] 10 mg Tablet 10 mg PO QAM RF: 0 levetiracetam 500 mg tablet 500 mg PO BID RF: 0 sodium chloride [Saline Mist] 0.65 % aerosol,spray 2 spray INTRANASAL BID RF: 0 Discontinued carbamazepine [Carbatrol] 300 mg Capsule, Er Multiphase 12 Hr 300 mg PO BID Qty: 0 RF: 0 lamotrigine 100 mg tablet 50 mg PO BID RF: 0 furosemide 40 mg tablet 80 mg PO QAM RF: 0 Discharge Orders: Discharge Order (Routine); Ordered 11/30/21 Ordered By: Enedelia Henriquez Admission Data Admit Date/Time: 05/16/21 14:25 Attending Provider: Chino Anderson Admit Provider: Jalen Christensen Primary Care Provider: Lora Carvalho Other Providers: Jalen Christensen ; Mahsa Lynn ; Laurie Gonzalez ; Jhon Coles ; Jose Ramon Ramos ; William Adhikari I. ; Jordan Nazario II ; Eva Rg ; Sony Bishop ; Lev Israel Other Interventions: Discharge Summary Assessment (RN) Last Done: 05/23/21 12:27 Supervising Physician Co-Signing Physician Notes Patient seen and examined by me, care coordinated with APOLLO Gleason, please refer to her note above for further detail. Patient is a 75-year-old female, initially admitted for altered mental status, and concern of possible infection. Discussed in detail with infectious disease, and antibiotics were discontinued. In addition, her neuro/antiepileptic medications levels were found elevated, and therefore we further discussed with neurology as well. These medications were adjusted, and she will need to follow-up closely with her providers. Currently she is sitting up in bed, in no acute distress. She is awake, she is able to answer some simple questions, and shake her head. This seems to be patient's baseline. Heart sounds regular, lung sounds somewhat diminished. Hand contractures noted. Otherwise moves extremities. Abdomen soft nontender nondistended. Skin warm dry and well- perfused. Appropriate follow-ups with healthcare providers were arranged. Herson Anderson MD
== END 2021-05-23 16:25 | disposition home or self-care (01) | DRG 918 ==
LOC: ED 12:10 → 3N 14:25 → SUATTDRO 14:25 → 3N 19:57
DX: G40.909 Epilepsy, unspecified, not intractable, without status epilepticus; I50.32 Chronic diastolic (congestive) heart failure; M24.541 Contracture, right hand; Y92.009 Unspecified place in unspecified non-institutional (private) residence as the place of occurrence of the external cause; Z87.440 Personal history of urinary (tract) infections; F79 Unspecified intellectual disabilities; G80.9 Cerebral palsy, unspecified; Z74.01 Bed confinement status; Z86.718 Personal history of other venous thrombosis and embolism; Z96.641 Presence of right artificial hip joint; N18.30 Chronic kidney disease, stage 3 unspecified; Z99.81 Dependence on supplemental oxygen; E86.0 Dehydration; T42.1X1A Poisoning by iminostilbenes, accidental (unintentional), initial encounter; J84.9 Interstitial pulmonary disease, unspecified; E03.9 Hypothyroidism, unspecified; E83.52 Hypercalcemia; M24.542 Contracture, left hand; N17.9 Acute kidney failure, unspecified; Z79.82 Long term (current) use of aspirin